=== PATIENT | female | born 1950 | race Caucasian/White ===

== ENCOUNTER 2018-07-03 08:20 | Emergency (ER) | payer OTHER ==
[2018-07-03 09:16] LABS: Protime INR 1.37
[2018-07-03 09:17] LABS: Absolute Lymphocytes (CBC) 1.2 K/uL (0.7-4.9); Absolute Monocytes 0.9 K/uL (0.1-1.3); Absolute Neutrophil 5.1 K/uL (1.8-8.0); Eosinophils % 4.8 % (0-4.4); Hematocrit 35.5 % (36.0-45.0); Lymphocytes % 16.3 % (15.3-44.8); MCH 32.2 pg (27.0-35.0); MCV 93.1 fL (80-100); MPV 9.2 fL (7.6-11.3); Monocytes % 11.9 % (3.3-12.3); RBC Red Blood Cell Count 3.81 M/uL (3.86-4.86)
[2018-07-03 09:32] LABS: Albumin 3.3 g/dL (3.4-5.0); Bilirubin Direct 0.1 mg/dL (0-0.2); Bilirubin Total 0.3 mg/dL (0.2-1.0); Magnesium 2.4 mg/dL (1.8-2.4); Potassium 4.3 mmol/L (3.5-5.1); Protein, Total 7.4 g/dL (6.4-8.2); Troponin (Emerg Dept Use Only) 0.02 ng/mL (0.0-0.045)
[2018-07-03 09:56] LABS: Thyroid Stimulating Hormone 3.99 uIU/mL (0.360-3.740)
[2018-07-03] MEDS ORDERED: NA CHLORIDE 0.9% 500 ML ONE (11:33)
--- NOTE | 2018-07-03 12:20 | EDPHYS ---
Physician Documentation [facility] Name: Nhung Munson Age: 67 yrs Sex: Female : 1950 Arrival Date: 07/03/2018 Time: 08:21 Bed 8 Private MD: Inga Thomas R ED Physician Ney Fernández HPI: 07/03 08:59 This 67 yrs old Female presents to ER via Wheelchair with complaints of Chest jr8 discomfort/cold sensation . 08:59 Patient stated for the past week that she has had intermittent "cold" sensation to her jr8 chest, back, head. Denies any other symptoms . Severity of symptoms: At their worst the symptoms were mild in the emergency department the symptoms have resolved. The patient has not experienced similar symptoms in the past. The patient has not recently seen a physician. Historical: - Allergies: 08:23 Amoxicillin; aa5 08:23 Bactrim DS; aa5 - PMHx: 08:23 Atrial Fib; Diabetes - IDDM; High Cholesterol; Hypertension; aa5 - PSHx: 08:23 Tubal ligation; aa5 - Immunization history:: Pneumococcal vaccine status is unknown, Flu vaccine is up to date. - Social history:: Smoking status: Patient/guardian denies using tobacco. - Ebola Screening: : No symptoms or risks identified at this time. ROS: 08:59 Eyes: Negative for injury, pain, redness, and discharge, ENT: Negative for injury, jr8 pain, and discharge, Neck: Negative for injury, pain, and swelling, Respiratory: Negative for shortness of breath, cough, wheezing, and pleuritic chest pain, Abdomen/GI: Negative for abdominal pain, nausea, vomiting, diarrhea, and constipation, Back: Negative for injury and pain, MS/Extremity: Negative for injury and deformity, Skin: Negative for injury, rash, and discoloration, Neuro: Negative for headache, weakness, numbness, tingling, and seizure. 08:59 Cardiovascular: Positive for chest pain, Negative for edema, orthopnea, palpitations, paroxysmal nocturnal dyspnea. Exam: 08:59 Eyes: Pupils equal round and reactive to light, extra-ocular motions intact. Lids and jr8 lashes normal. Conjunctiva and sclera are non-icteric and not injected. Cornea within normal limits. Periorbital areas with no swelling, redness, or edema. ENT: Nares patent. No nasal discharge, no septal abnormalities noted. Tympanic membranes are normal and external auditory canals are clear. Oropharynx with no redness, swelling, or masses, exudates, or evidence of obstruction, uvula midline. Mucous membranes moist. Neck: Trachea midline, no thyromegaly or masses palpated, and no cervical lymphadenopathy. Supple, full range of motion without nuchal rigidity, or vertebral point tenderness. No Meningismus. Cardiovascular: Regular rate and rhythm with a normal S1 and S2. Grade 2 systolic murmur auscultated. Normal PMI, no JVD. No pulse deficits. 2+ pedal edema present Respiratory: Lungs have equal breath sounds bilaterally, clear to auscultation and percussion. No rales, rhonchi or wheezes noted. No increased work of breathing, no retractions or nasal flaring. Abdomen/GI: Soft, non-tender, with normal bowel sounds. No distension or tympany. No guarding or rebound. No evidence of tenderness throughout. Back: No spinal tenderness. No costovertebral tenderness. Full range of motion. Skin: Warm, dry with normal turgor. Normal color with no rashes, no lesions, and no evidence of cellulitis. MS/ Extremity: Pulses equal, no cyanosis. Neurovascular intact. Full, normal range of motion. Neuro: Awake and alert, GCS 15, oriented to person, place, time, and situation. Cranial nerves II-XII grossly intact. Motor strength 5/5 in all extremities. Sensory grossly intact. Cerebellar exam normal. Normal gait. 09:13 ECG was reviewed by the Attending Physician. jr8 Vital Signs: 08:25 BP 150 / 52; Pulse 79; Resp 16 S; Temp 98.1(O); Pulse Ox 98% on R/A; Weight 131.54 kg aa5 (R); Height 5 ft. 1 in. (154.94 cm) (R); Pain 0/10; 09:00 BP 141 / 60; Pulse 72; Resp 14; Pulse Ox 99% ; sv 09:30 BP 105 / 45; Pulse 66; Resp 13; Pulse Ox 99% ; sv 10:00 BP 106 / 50; Pulse 65; Resp 15; Pulse Ox 99% ; sv 10:30 BP 124 / 63; Pulse 67; Resp 15; Pulse Ox 99% ; sv 08:25 Body Mass Index 54.79 (131.54 kg, 154.94 cm) aa5 MDM: 08:25 Patient medically screened. [facility] 12:16 Data reviewed: vital signs, nurses notes, lab test result(s), EKG, radiologic studies, jr8 plain films. Data interpreted: Pulse oximetry: on room air is 99 %. Interpretation: normal. Counseling: I had a detailed discussion with the patient and/or guardian regarding: the historical points, exam findings, and any diagnostic results supporting the discharge/admit diagnosis, lab results, radiology results, the need for outpatient follow up, a family practitioner, to return to the emergency department if symptoms worsen or persist or if there are any questions or concerns that arise at home. ED course: Patient asymptomatic at this time. To f/u with Dr. Villalba and her PCP for renal insufficiency and thyroid dysfunction. Patient good with plan and will f/u. 07/03 08:48 Order name: Basic Metabolic Panel [facility] 07/03 08:48 Order name: CBC with Diff [facility] 07/03 08:48 Order name: LFT's; Complete Time: 10:45 jr 07/03 08:48 Order name: Magnesium; Complete Time: 10:45 07/03 08:48 Order name: NT PRO-BNP; Complete Time: 10:45 [facility] 07/03 08:48 Order name: PT-INR; Complete Time: 09:27 07/03 08:48 Order name: Troponin (emerg Dept Use Only); Complete Time: 10:45 [facility] 07/03 08:48 Order name: XRAY Chest (1 view); Complete Time: 12:34 jr 07/03 08:48 Order name: TSH; Complete Time: 10:45 8 07/03 08:48 Order name: T4 Free; Complete Time: 10:45 8 07/03 08:49 Order name: Basic Metabolic Panel; Complete Time: 10:45 [facility] 07/03 08:49 Order name: CBC with Automated Diff; Complete Time: 09:27 [facility]NV 07/03 08:54 Order name: Glucose, Ancillary Testing; Complete Time: 08:58 EDMS 07/03 08:48 Order name: EKG; Complete Time: 08:49 8 07/03 08:48 Order name: Cardiac monitoring; Complete Time: 08:49 jr8 07/03 08:48 Order name: EKG - Nurse/Tech; Complete Time: 08:07/03 08:48 Order name: IV Saline Lock; Complete Time: :07/03 08:48 Order name: Labs collected and sent; Complete Time: 08:07/03 08:48 Order name: O2 Per Protocol; Complete Time: :07/03 08:48 Order name: O2 Sat Monitoring; Complete Time: 07/03 12:02 Order name: Diet Ada 1800 Cole; Complete Time: 12:03 sv EC:13 Rate is 79 beats/min. Rhythm is regular, Normal Sinus Rhythm. Left axis deviation jr8 noted. SC interval is normal at 172 msec. QRS interval is normal at 118 msec. QT interval is prolonged at 490 msec. No Q waves. T waves are Normal. No ST changes noted. Clinical impression: LVH and No evidence of ischemia. Interpreted by me. Reviewed by me. Administered Medications: 11:30 Drug: NS 0.9% 500 ml Route: IV; Rate: bolus; Site: right forearm; sv 12:20 Follow up: Response: No adverse reaction; IV Status: Completed infusion; IV Intake: sv 500ml Point of Care Testing: Blood Glucose: 08:42 Blood Glucose: 188 mg/dL; sv Ranges: Critical Glucose Levels:Adult <50 mg/dl or >400 mg/dl <40 mg/dl or >180 mg/dl Disposition: 17:46 Co-signature as Attending Physician, Ney Fernández MD. Disposition: 07/03/18 12:19 Discharged to Home. Impression: Chronic kidney disease (CKD), Hypothyroidism, unspecified. - Condition is Stable. - Discharge Instructions: Hypothyroidism, Chronic Kidney Disease, Adult. - Medication Reconciliation Form, Thank You Letter, Antibiotic Education, Prescription Opioid Use form. - Follow up: Inga Thomas MD; When: 1 - 2 days; Reason: Recheck today's complaints, Continuance of care, Re-evaluation by your physician. Follow up: Arcelia Villalba MD; When: 1 - 2 days; Reason: Recheck today's complaints, Continuance of care, Re-evaluation by your physician. - Problem is new. - Symptoms have improved. Signatures: Dispatcher [employer] EDMS Adrien, Cathie, RN RN Chantal Williamson RN RN aa5 Christopher Moseley PA PA jr8 Shmuel Kim RN RN jl7 Ney Fernández MD MD gs Corrections: (The following items were deleted from the chart) 13:23 12:19 07/03/2018 12:19 Discharged to Home. Impression: Chronic kidney disease (CKD); jl7 Hypothyroidism, unspecified. Condition is Stable. Forms are Medication Reconciliation Form, Thank You Letter, Antibiotic Education, Prescription Opioid Use. Follow up: Inga Thomas; When: 1 - 2 days; Reason: Recheck today's complaints, Continuance of care, Re-evaluation by your physician. Follow up: Arcelia Villalba; When: 1 - 2 days; Reason: Recheck today's complaints, Continuance of care, Re-evaluation by your physician. Problem is new. Symptoms have improved. jr8
--- NOTE | 2018-07-03 12:20 | ER ---
Nurse's Notes [facility] Name: Nhung Munson Age: 67 yrs Sex: Female : 1950 Arrival Date: 07/03/2018 Time: 08:21 Bed 8 Private MD: Inga Thomas R Diagnosis: Chronic kidney disease (CKD);Hypothyroidism, unspecified Presentation: 07/03 08:23 Presenting complaint: Patient states: "I've been having this cold feeling on my chest aa5 and sometimes is on my neck and sometimes on my back for about a week now". Pt denies SOB, denies pain, denies N/V/D, denies cough. 08:23 Transition of care: patient was not received from another setting of care. Onset of aa5 symptoms was June 2018. Risk Assessment: Do you want to hurt yourself or someone else? Patient reports no desire to harm self or others. Initial Sepsis Screen: Does the patient meet any 2 criteria? No. Patient's initial sepsis screen is negative. Does the patient have a suspected source of infection? No. Patient's initial sepsis screen is negative. Care prior to arrival: None. 08:23 Method Of Arrival: Wheelchair aa5 08:23 Acuity: BACILIO 3 aa5 Historical: - Allergies: 08:23 Amoxicillin; aa5 08:23 Bactrim DS; aa5 - PMHx: 08:23 Atrial Fib; Diabetes - IDDM; High Cholesterol; Hypertension; aa5 - PSHx: 08:23 Tubal ligation; aa5 - Immunization history:: Pneumococcal vaccine status is unknown, Flu vaccine is up to date. - Social history:: Smoking status: Patient/guardian denies using tobacco. - Ebola Screening: : No symptoms or risks identified at this time. Screenin:42 Abuse screen: Denies threats or abuse. Denies injuries from another. Nutritional sv screening: No deficits noted. Tuberculosis screening: No symptoms or risk factors identified. Fall Risk None identified. Assessment: 08:40 General: Appears in no apparent distress. comfortable, obese, Behavior is calm, sv cooperative, appropriate for age. Pain: Complains of pain in back and chest. Neuro: Level of Consciousness is awake, alert, obeys commands, Oriented to person, place, time, situation, Moves all extremities. Full function. Cardiovascular: Heart tones S1 S2 present Murmur present Patient's skin is warm and dry. Pulses are 2+ in right radial artery and left radial artery Rhythm is sinus rhythm. Respiratory: Airway is patent Respiratory effort is even, unlabored, Respiratory pattern is regular, symmetrical, Breath sounds are clear bilaterally. Denies shortness of breath labored breathing. Derm: Skin is normal. 08:40 Respiratory: Denies cough. GI: Patient currently denies diarrhea, nausea, vomiting. sv 11:30 Reassessment: Patient appears in no apparent distress at this time. No changes from sv previously documented assessment. Patient and/or family updated on plan of care and expected duration. Pain level reassessed. Patient is alert, oriented x 3, equal unlabored respirations, skin warm/dry/pink. 13:00 Reassessment: Patient appears in no apparent distress at this time. No changes from sv previously documented assessment. Patient and/or family updated on plan of care and expected duration. Pain level reassessed. Patient is alert, oriented x 3, equal unlabored respirations, skin warm/dry/pink. Vital Signs: 08:25 BP 150 / 52; Pulse 79; Resp 16 S; Temp 98.1(O); Pulse Ox 98% on R/A; Weight 131.54 kg aa5 (R); Height 5 ft. 1 in. (154.94 cm) (R); Pain 0/10; 09:00 BP 141 / 60; Pulse 72; Resp 14; Pulse Ox 99% ; sv 09:30 BP 105 / 45; Pulse 66; Resp 13; Pulse Ox 99% ; sv 10:00 BP 106 / 50; Pulse 65; Resp 15; Pulse Ox 99% ; sv 10:30 BP 124 / 63; Pulse 67; Resp 15; Pulse Ox 99% ; sv 08:25 Body Mass Index 54.79 (131.54 kg, 154.94 cm) aa5 ED Course: 08:21 Patient arrived in ED. mr 08:22 Inga Thomas MD is Private Physician. mr 08:23 Arm band placed on Patient placed in an exam room, on a stretcher. aa5 08:25 Christopher Moseley PA is PHCP. jr8 08:25 Ney Fernández MD is Attending Physician. jr8 08:32 Adrien, Cathie, RN is Primary Nurse. sv 08:35 actuarial internship on. Pulse ox on. NIBP on. Door closed. Head of bed elevated. sv 08:35 Initial lab(s) drawn, by me, sent to lab. Inserted saline lock: 22 gauge in right sv forearm, using aseptic technique. ,using aseptic technique. diffusics Blood collected. Flushed right forearm with 5 ml normal saline. 08:36 Triage completed. aa5 08:42 Patient has correct armband on for positive identification. Placed in gown. Bed in low sv position. Side rails up X2. Adult w/ patient. 08:44 Nurse Practitioner and/or Physician Academic Director to see patient. sv 08:57 CBC with Diff Sent. sv 08:57 Basic Metabolic Panel Sent. sv 08:57 X-ray(s) taken. sv 08:57 EKG done, by ED staff, reviewed by Christopher CHOI. jb1 09:03 X-ray completed. Portable x-ray completed in exam room. Patient tolerated procedure ag1 well. 09:04 XRAY Chest (1 view) In Process Unspecified. EDMS 12:18 Inga Thomas MD is Referral Physician. jr8 12:18 Arcelia Villalba MD is Referral Physician. jr8 13:23 No provider procedures requiring assistance completed. IV discontinued, intact, jl7 bleeding controlled, No redness/swelling at site. Pressure dressing applied. Administered Medications: 11:30 Drug: NS 0.9% 500 ml Route: IV; Rate: bolus; Site: right forearm; sv 12:20 Follow up: Response: No adverse reaction; IV Status: Completed infusion; IV Intake: sv 500ml Point of Care Testing: Blood Glucose: 08:42 Blood Glucose: 188 mg/dL; sv Ranges: Intake: 12:20 IV: 500ml; Total: 500ml. sv Outcome: 12:19 Discharge ordered by . jr8 13:23 Discharged to home via wheelchair, with family. jl7 13:23 Condition: stable 13:23 Discharge instructions given to patient, family, Instructed on discharge instructions, follow up and referral plans. Demonstrated understanding of instructions, follow-up care. 13:23 Patient left the ED. jl7 Signatures: Dispatcher [employer] EDVT Emanuel Castellanos jb1 Cathie Jurado, RN RN Elina AzevedoChantal, RN RN aa5 Christopher Moseley PA PA jr8 Josephine Rosa ag1 Shmuel Kim, RN RN jl7 Corrections: (The following items were deleted from the chart) 08:47 08:40 Cardiovascular: Heart tones S1 S2 present Patient's skin is warm and dry. Pulses sv are 2+ in right radial artery and left radial artery Rhythm is sinus rhythm sv
--- NOTE | 2018-07-03 12:26 | RAD REPORT ---
EXAM DESCRIPTION: RAD - Chest Single View - 07/03/2018 9:06 am CLINICAL HISTORY: Dyspnea COMPARISON: April 2016 TECHNIQUE: AP portable chest image was obtained 0850 hours . FINDINGS: No peripheral mass or consolidation. Lung markings similar to comparison. Heart and vascul ature are normal. No measurable pleural effusion and no pneumothorax. There cardio fat pads are prese nt. Overlying soft tissues accentuate lung bases. No acute aortic findings suspected. IMPRESSION: No acute cardiopulmonary process. When adjusting for technique and positioning differences, no substantial change from comparison.
[2018-07-03 14:10] VITALS: TEMP 98.1
[2018-07-03 14:11] VITALS: O2SAT 99
[2018-07-03 14:14] VITALS: BP 124/63
--- NOTE | 2018-07-04 19:17 | EKG ---
Test Date: 2018-07-03 Test Time: 08:34:40 Nurse Wound: CLAIR MEASUREMENT RESULTS: Intervals: Rate: 79 VA: 172 QRSD: 118 QT: 428 QTc: 490 [place]: P: 74 VA: 172 QRS: -49 T: 70 INTERPRETIVE STATEMENTS: Normal sinus rhythm Left anterior fascicular block Left ventricular hypertrophy with QRS widening Prolonged QT Abnormal ECG Compared to ECG 05/16/2016 17:53:51 Left anterior fascicular block now present Left ventricular hypertrophy now present Prolonged QT interval now present Atrial fibrillation no longer present ST (T wave) deviation no longer present Electronically Signed On 07-04-18 19:15:01 CDT by Nehemias Brown
== END 2018-07-03 13:23 | disposition home or self-care (01) ==
LOC: ER 08:20
DX: N18.9 Chronic kidney disease, unspecified (principal); E03.9 Hypothyroidism, unspecified; I10 Essential (primary) hypertension; Z88.1 Allergy status to other antibiotic agents
CPT/HCPCS: 36415; 71045; 80048; 80076; 82962; 83735; 83880; 84439; 84443; 84484; 85025; 85610; 93005; 96360; 99285

== ENCOUNTER 2019-09-06 15:11 | Inpatient (IN) | payer OTHER ==
[2019-09-06 17:18] LABS: Urine Blood NEGATIVE (NEG); Urine Glucose NEGATIVE (NEG); Urine Protein NEGATIVE (NEG); Urine Specific Gravity 1.015 (1.005-1.030); Urine pH 6.5 (5.0-7.0)
[2019-09-06 17:20] LABS: Absolute Lymphocytes (CBC) 0.9 K/uL (0.7-4.9); Basophils % 1.1 % (0-1.3); Lymphocytes % 9.5 % (15.3-44.8); MPV 9.2 fL (7.6-11.3); RBC Red Blood Cell Count 3.46 M/uL (3.86-4.86)
--- NOTE | 2019-09-06 17:22 | RAD REPORT ---
EXAM DESCRIPTION: RAD - Tib Fib Left - 09/06/2019 4:55 pm CLINICAL HISTORY: Cellulitis, leg pain COMPARISON: None. FINDINGS: No fracture is identified. There is no dislocation or periosteal reaction noted. Prominent medial compartment degenerative changes are present at the knee with joint space narrowing and louise nal spurring. Large spurs are seen in the lateral compartment. Patella femoral joint degenerative shailesh nge present. Knee joint is not optimally visualized on this examination. Degenerative change at the a nkle joint is less prominent. Patient has a large plantar spur and small spur at the Achilles attachm ent. Patient has innumerable calcifications scattered throughout the fatty tissues of the left lower extre mity. No air or foreign body seen in the soft tissues. IMPRESSION: No bone destructive process or acute bone finding. Mild ankle joint and very advanced knee joint degenerative change. Neither joint is optimally visuali zed on this examination. Innumerable soft tissue calcifications are present but no air or foreign body in the soft tissues.
[2019-09-06 17:24] LABS: Protime INR 1.37
--- NOTE | 2019-09-06 17:29 | EDPHYS ---
Physician Documentation [facility] Name: Nhung Munson Age: 68 yrs Sex: Female : 1950 Arrival Date: 09/06/2019 Time: 15:13 Bed 19 Private MD: Inga Thomas R ED Physician Herbert Elizabeth HPI: 09/06 16:56 This 68 yrs old Female presents to ER via Wheelchair with complaints of Leg rn Pain, Leg Swelling. 16:56 The patient presents with cellulitis of the left leg. rn 16:56 Description: erythematous, swollen. Onset: The symptoms/episode began/occurred 5 day(s) rn ago. Possible cause(s): unknown. Severity of symptoms: At their worst the symptoms were moderate, in the emergency department the symptoms are unchanged. The patient has experienced similar episodes in the past. Reports has chronic swelling of legs, itching, scratched off scab that now is oozing and redness of same leg. No fever. . Historical: - Allergies: 15:39 Amoxicillin; aj1 15:39 Bactrim DS; aj1 15:39 Demerol; aj1 - PMHx: 15:39 Atrial Fib; Diabetes - IDDM; High Cholesterol; Hypertension; aj1 - Immunization history:: Flu vaccine is up to date. - Social history:: Smoking status: Patient/guardian denies using tobacco. - Ebola Screening: : Patient denies travel to an Ebola-affected area in the 21 days before illness onset. - Family history:: not pertinent. - Hospitalizations: : No recent hospitalization is reported. ROS: 16:56 Constitutional: Negative for fever, chills, and weight loss, Eyes: Negative for injury, rn pain, redness, and discharge, Cardiovascular: Negative for chest pain, palpitations Respiratory: Negative for shortness of breath, cough, wheezing, and pleuritic chest pain, Abdomen/GI: Negative for abdominal pain, nausea, vomiting, diarrhea, and constipation, MS/Extremity: + both legs swelling Skin: + redness and pain to left leg Neuro: Negative for headache, weakness, numbness, tingling, and seizure. Exam: 16:56 Constitutional: This is a well developed, well nourished patient who is awake, alert, rn and in no acute distress. Head/Face: Normocephalic, atraumatic. ENT: dry MM Cardiovascular: Regular rate Respiratory: No increased work of breathing, no retractions or nasal flaring. Abdomen/GI: soft, non-tender MS/ Extremity: Pulses equal, no cyanosis. Neurovascular intact. Full, normal range of motion. 2+ edema bilateral lower ext with chronic edematous skin changes, LLE with erythema and warmth from ankle to mid-tibial region, no fluctuance, + single bullae medial side. 4cm diameter wound with foul smell and clear drainage, no fluctuance. Neuro: Awake and alert Vital Signs: 15:39 BP 127 / 44; Pulse 50; Resp 18; Temp 97.4; Pulse Ox 99% on R/A; Weight 132.45 kg (R); aj1 Height 5 ft. 3 in. (160.02 cm) (R); Pain 0/10; 17:00 BP 138 / 38; Pulse 43; Resp 16; Pulse Ox 99% on R/A; ss 18:30 BP 121 / 40; Pulse 45; Resp 16; Pulse Ox 100% on R/A; Pain 0/10; ss 19:35 BP 127 / 47; Pulse 45; Resp 17; Pulse Ox 99% on R/A; ca1 20:46 BP 110 / 34; Pulse 52; Resp 18 S; Pulse Ox 99% on R/A; ca1 21:36 BP 109 / 82; Pulse 48; Resp 17 S; Pulse Ox 100% on R/A; ca1 15:39 Body Mass Index 51.72 (132.45 kg, 160.02 cm) aj MDM: 15:54 Patient medically screened. rn 17:26 Differential diagnosis: cellulitis. Data reviewed: vital signs, nurses notes, rn radiologic studies, plain films, and as a result, I will admit patient. Counseling: I had a detailed discussion with the patient and/or guardian regarding: the historical points, exam findings, and any diagnostic results supporting the discharge/admit diagnosis, lab results, radiology results, the need for further work-up and treatment in the hospital. Admission orders: after a detailed discussion of the patient's condition and case, the admit orders are written by me. Special discussion:. ED course: Will admit to Dr. Cordero for circumferential cellulitis of left leg involving a third of leg. . 09/06 16:17 Order name: CBC with Diff; Complete Time: 17:53 rn 09/06 16:17 Order name: Basic Metabolic Panel; Complete Time: 17:53 rn 09/06 16:17 Order name: Procalcitonin; Complete Time: 17:53 rn 09/06 16:17 Order name: Blood Culture Adult (2) rn 09/06 16:17 Order name: Protime (+inr); Complete Time: 17:53 rn 09/06 16:17 Order name: Ptt, Activated; Complete Time: 17:53 rn 09/06 16:17 Order name: XRAY Tib Fib LEFT; Complete Time: 17:24 rn 09/06 17:08 Order name: Wound Culture 09/06 17:13 Order name: Urine Dipstick--Ancillary (enter results); Complete Time: 17:20 bd 09/06 19:45 Order name: Basic Metabolic Panel [facility] 09/06 19:45 Order name: Basic Metabolic Panel [facility] 09/06 19:45 Order name: CBC with Automated Diff [facility] 09/06 19:45 Order name: CBC with Automated Diff [facility] 09/06 16:17 Order name: IV Start; Complete Time: 17:21 rn 09/06 18:08 Order name: Diet Ada 1999 Cole; Complete Time: 18:09 09/06 18:09 Order name: Diet Ada 1999 Cole: Spouse tray please; Complete Time: 18:10 09/06 19:45 Order name: CONS Pharmacy Consult [facility] 09/06 19:45 Order name: CONS Physician Consult [facility] 09/06 19:45 Order name: Renal EDMS Administered Medications: 18:18 Drug: vancoMYCIN 1 grams Route: IVPB; Infused Over: 2 hrs; Site: right antecubital; ss 20:52 Follow up: Response: No adverse reaction; IV Status: Completed infusion ca1 Disposition: 09/06/19 17:28 Hospitalization ordered by Juma Cordero for Inpatient Admission. Preliminary diagnosis are Cellulitis of left lower limb, Acute on chronic renal failure. - Bed requested for Intensive Care Unit. - Status is Inpatient Admission. ca1 - Condition is Stable. - Problem is new. - Symptoms are unchanged. UTI on Admission? No Signatures: Dispatcher [employer] EDRI Khadra Rabago RN RN [email or web address] Sonia Fitzgerald RN RN mw Nieto, Roman, MD MD rn [facility], Kristin, RN RN ss AcMargoth coreas RN RN ca1 Corrections: (The following items were deleted from the chart) 17:56 17:28 [facility]. Preliminary rn diagnosis is Cellulitis of left lower limb. Bed requested for Telemetry/MedSurg (Inpatient). Status is Inpatient Admission. Condition is Stable. Problem is new. Symptoms are unchanged. UTI on Admission? No. rn 21:08 17:56 09/06/2019 17:28 Hospitalization Ordered by [facility] for Inpatient mw Admission. Preliminary diagnosis is Cellulitis of left lower limb; Acute on chronic renal failure. Bed requested for Telemetry/MedSurg (Inpatient). Status is Inpatient Admission. Condition is Stable. Problem is new. Symptoms are unchanged. UTI on Admission? No. rn 21:08 21:08 09/06/2019 17:28 Hospitalization Ordered by [facility] for Inpatient mw Admission. Preliminary diagnosis is Cellulitis of left lower limb; Acute on chronic renal failure. Bed requested for Intensive Care Unit. Status is Inpatient Admission. Condition is Stable. Problem is new. Symptoms are unchanged. UTI on Admission? No. mw 22:03 21:08 09/06/2019 17:28 Hospitalization Ordered by [facility] for Inpatient ca1 Admission. Preliminary diagnosis is Cellulitis of left lower limb; Acute on chronic renal failure. Bed requested for Intensive Care Unit. Status is Inpatient Admission. Condition is Stable. Problem is new. Symptoms are unchanged. UTI on Admission? No.
--- NOTE | 2019-09-06 17:29 | ER ---
Nurse's Notes [facility] Name: Nhung Munson Age: 68 yrs Sex: Female : 1950 Arrival Date: 09/06/2019 Time: 15:13 Bed 19 Private MD: Inga Thomas R Diagnosis: Cellulitis of left lower limb;Acute on chronic renal failure Presentation: 09/06 15:37 Presenting complaint: Patient states: "I got an infection on my left leg" Patient aj1 reports that she has noticed redness and purulent drainage since Thursday. Denies fever. Transition of care: patient was not received from another setting of care. Onset of symptoms was 2018. Risk Assessment: Do you want to hurt yourself or someone else? Patient reports no desire to harm self or others. Initial Sepsis Screen: Does the patient meet any 2 criteria? No. Patient's initial sepsis screen is negative. Does the patient have a suspected source of infection? Yes: Skin breakdown/wound. Care prior to arrival: None. 15:37 Method Of Arrival: Wheelchair aj1 15:37 Acuity: BACILIO 3 aj1 Triage Assessment: 15:39 General: Appears in no apparent distress. comfortable, Behavior is calm, cooperative, aj1 appropriate for age. Pain: Denies pain. Neuro: Level of Consciousness is awake, alert, obeys commands. Cardiovascular: Patient's skin is warm and dry. Respiratory: Airway is patent Respiratory effort is even, unlabored, Respiratory pattern is regular, symmetrical. Historical: - Allergies: 15:39 Amoxicillin; aj1 15:39 Bactrim DS; aj1 15:39 Demerol; aj1 - PMHx: 15:39 Atrial Fib; Diabetes - IDDM; High Cholesterol; Hypertension; aj1 - Immunization history:: Flu vaccine is up to date. - Social history:: Smoking status: Patient/guardian denies using tobacco. - Ebola Screening: : Patient denies travel to an Ebola-affected area in the 21 days before illness onset. - Family history:: not pertinent. - Hospitalizations: : No recent hospitalization is reported. Screenin:08 Abuse screen: Denies threats or abuse. Denies injuries from another. Nutritional ss screening: No deficits noted. Tuberculosis screening: Never had TB. Fall Risk None identified. Assessment: 16:00 General: Appears comfortable, obese, Behavior is calm, cooperative. Pain: Denies pain. ss Neuro: Level of Consciousness is awake, alert, obeys commands, Oriented to person, place, time, situation. Cardiovascular: Capillary refill < 3 seconds is brisk in bilateral fingers. Respiratory: Respiratory effort is even, unlabored, Denies cough, shortness of breath. EENT: Oral mucosa is moist. Derm: Skin is thin, with poor turgor Skin is dry, Skin is pink, warm \\T\\ dry. Skin temperature is warm Wound noted LLE. blister noted to L monteiro area as well as silver dollar sized area of scabbing. Pt reports redness to monteiro began yesterday. Itching to area began "a few days ago". Very dry, flaky skin noted to bilateral lower extremities. Musculoskeletal: Range of motion: intact in all extremities. 17:00 Reassessment: Patient appears in no apparent distress at this time. Patient and/or ss family updated on plan of care and expected duration. Pain level reassessed. Patient is alert, oriented x 3, equal unlabored respirations, skin warm/dry/pink. 18:00 Reassessment: Pt and updated on plan of care. Dr. Cordero at bedside assessing ss patient and discussing plan of care. 19:05 Reassessment: Patient appears in no apparent distress at this time. Patient is alert, ca1 oriented x 3, equal unlabored respirations, skin warm/dry/pink. 20:03 Reassessment: Patient appears in no apparent distress at this time. Patient and/or ca1 family updated on plan of care and expected duration. Pain level reassessed. Patient is alert, oriented x 3, equal unlabored respirations, skin warm/dry/pink. Pending room assignment. 21:10 Reassessment: Patient appears in no apparent distress at this time. Patient is alert, ca1 oriented x 3, equal unlabored respirations, skin warm/dry/pink. Vital Signs: 15:39 BP 127 / 44; Pulse 50; Resp 18; Temp 97.4; Pulse Ox 99% on R/A; Weight 132.45 kg (R); aj1 Height 5 ft. 3 in. (160.02 cm) (R); Pain 0/10; 17:00 BP 138 / 38; Pulse 43; Resp 16; Pulse Ox 99% on R/A; ss 18:30 BP 121 / 40; Pulse 45; Resp 16; Pulse Ox 100% on R/A; Pain 0/10; ss 19:35 BP 127 / 47; Pulse 45; Resp 17; Pulse Ox 99% on R/A; ca1 20:46 BP 110 / 34; Pulse 52; Resp 18 S; Pulse Ox 99% on R/A; ca1 21:36 BP 109 / 82; Pulse 48; Resp 17 S; Pulse Ox 100% on R/A; ca1 15:39 Body Mass Index 51.72 (132.45 kg, 160.02 cm) aj1 ED Course: 15:13 Patient arrived in ED. rg4 15:13 Inga Thomas MD is Private Physician. rg4 15:39 Triage completed. aj1 15:39 Arm band placed on Patient placed in an exam room. aj1 15:54 Herbert Elizabeth MD is Attending Physician. rn 16:46 Kristin Guzman RN is Primary Nurse. ss 16:50 XRAY Tib Fib LEFT In Process Unspecified. EDMS 17:00 Inserted saline lock: 22 gauge in right antecubital area, using aseptic technique. ss Blood collected. 17:27 Juma Cordero DO is Hospitalizing Provider. rn 19:08 Patient has correct armband on for positive identification. Bed in low position. Call ss light in reach. 19:08 No provider procedures requiring assistance completed. Patient admitted, IV remains in ss place. 20:45 Primary Nurse role handed off by Kristin Guzman, JAZMYN ar5 Administered Medications: 18:18 Drug: vancoMYCIN 1 grams Route: IVPB; Infused Over: 2 hrs; Site: right antecubital; ss 20:52 Follow up: Response: No adverse reaction; IV Status: Completed infusion ca1 Outcome: 17:28 Decision to Hospitalize by Provider. rn 19:08 Condition: good ss 19:08 Instructed on the need for admit. 21:42 Admitted to ICU accompanied by tech, via wheelchair, room 3 as ICU overflow, with ca1 chart, Report called to JAZMYN Narayanan 21:42 Condition: stable 21:42 Instructed on the need for admit. 22:03 Patient left the ED. ca1 Signatures: Dispatcher [employer] EDTX Khadra Rabago RN RN aj1 ElizabethHerbert alexandra MD MD rn Smirch, Shelby, RN RN ss Garcia, Rubi rg4 Daina Breaux ar5 Margoth Hoffmann RN RN ca1 Corrections: (The following items were deleted from the chart) 20:52 20:03 Reassessment: Patient appears in no apparent distress at this time. Patient ca1 and/or family updated on plan of care and expected duration. Pain level reassessed. Patient is alert, oriented x 3, equal unlabored respirations, skin warm/dry/pink. ca1
[2019-09-06 17:31] LABS: Potassium 4.4 mmol/L (3.5-5.1)
[2019-09-06] MEDS ORDERED: VANCOMYCIN 1 GM/VIAL ONE (17:40)
[2019-09-06] MEDS ORDERED: NA CHLORIDE 0.9% 250 ML ONE (17:43)
[2019-09-06] MEDS ORDERED: ONDANSETRON 4 MG/2 ML VIAL IV PRN (19:41)
[2019-09-06] MEDS ORDERED: MORPHINE 4 MG/ML SYR IV PRN (19:41)
[2019-09-06] MEDS ORDERED: ACETAMINOPHEN 500 MG TAB PO PRN (19:41)
[2019-09-06] MEDS ORDERED: Levofloxacin500mg IV 500 MG/100 ML BAG IV ONE (22:00)
[2019-09-06 22:25] VITALS: O2SAT 100
[2019-09-06] MEDS: NA CHLORIDE 0.9% 1,000 ML IV SCH (22:27)
[2019-09-07 05:41] LABS: Absolute Lymphocytes (CBC) 1.3 K/uL (0.7-4.9); Basophils % 1.2 % (0-1.3); Hematocrit 31.3 % (36.0-45.0); Lymphocytes % 14.6 % (15.3-44.8); MPV 9.9 fL (7.6-11.3); RBC Red Blood Cell Count 3.41 M/uL (3.86-4.86)
[2019-09-07] MEDS ORDERED: HOME MED 1 EA UNK (Liraglutide [Victoza 2-Pak] 1.8 MG) SQ SCH (09:00)
[2019-09-07] MEDS ORDERED: cloNIDine HCL 0.1 MG TAB PO SCH (09:00)
[2019-09-07] MEDS ORDERED: carvediloL 25 MG TAB PO SCH (09:00)
[2019-09-07] MEDS: FERROUS GLUCONATE 236 MG PO SCH ×3 (09:00→20:40)
[2019-09-07] MEDS ORDERED: SPIRONOLACTONE 25 MG TABLET PO SCH (09:00)
[2019-09-07] MEDS: NA CHLORIDE 0.9% 1,000 ML IV SCH ×2 (09:20→22:40)
[2019-09-07] MEDS: allopurinoL 100 MG TAB PO SCH (10:03)
[2019-09-07] MEDS: VITAMIN D 1000 UNIT TAB PO SCH (10:04)
[2019-09-07] MEDS: AMIODARONE HCL 200 MG TAB PO SCH (10:04)
[2019-09-07] MEDS: APIXABAN 2.5 MG TABLET PO SCH ×2 (10:05→20:39)
[2019-09-07] MEDS: NPH (HUMAN) 100 UNITS/ML INSULIN SQ SCH (11:42)
[2019-09-07] MEDS ORDERED: NPH (HUMAN) 100 UNITS/ML INSULIN SQ SCH (17:00)
[2019-09-07] MEDS: cloNIDine HCL 0.1 MG TAB PO SCH (20:40)
[2019-09-07] MEDS ORDERED: carvediloL 6.25 MG TAB PO SCH ×2 (21:00)
[2019-09-07] MEDS ORDERED: ATORVASTATIN 20 MG TAB PO SCH (21:00)
[2019-09-07] MEDS ORDERED: LORATADINE 10 MG TAB PO SCH (21:00)
[2019-09-07] MEDS ORDERED: DIPHENHYDRAMINE 25 MG TAB/CAP PO ONE (22:27)
[2019-09-07] MEDS ORDERED: TEMAZEPAM 15 MG CAP PO PRN (22:28)
[2019-09-08] MEDS: NA CHLORIDE 0.9% 1,000 ML IV SCH (00:54)
[2019-09-08] MEDS ORDERED: CLINDAMYCIN 600MG/D5W 600 MG/50 ML BAG IV ONE (00:56)
[2019-09-08] MEDS: CLINDAMYCIN INJ 600 MG in NA CHLORIDE 0.9% 50 ML IV SCH ×2 (00:57→09:40)
[2019-09-08 04:37] VITALS: BMI 52.4
--- NOTE | 2019-09-08 05:54 | P.HP ---
Certification for Inpatient Patient admitted to: Inpatient With expected LOS: >2 Midnights Patient will require the following post-hospital care: None Practitioner: I am a practitioner with admitting privileges, knowledge of patient current condition, hospital course, and medical plan of care. Services: Services provided to patient in accordance with Admission requirements found in Title 42 Section 412.3 of the Code of Federal Regulations Patient History Date of Service: 09/06/19 Reason for admission: Cellulitis of the left lower extremity History of Present Illness: Patient is a 68-year-old female who came to the hospital with cellulitis of the left lower extremity. Patient's left leg has been red for the last few days. This has progressively worsened. Patient is on diuretics as she has lower extremity edema. This has been worked up extensively, and she was informed that her heart studies were normal. Her renal function has worsened over the last year significantly. She had a creatinine at 1.68 in September,. However, her creatinine on this admission was 3.7. She appears to be overly diuresed, and we will admit her to the hospital for hydration and IV antibiotics. Allergies amoxicillin [Amoxicillin] Allergy (Intermediate, Verified 12/27/11 05:36) Hives/Rash sulfamethoxazole [From Bactrim] Allergy (Intermediate, Verified 12/27/11 05:36) Hives/Rash trimethoprim [From Bactrim] Allergy (Intermediate, Verified 12/27/11 05:36) Hives/Rash Home Medications: Allopurinol 100 mg PO DAILY 09/06/19 Amiodarone HCl [Pacerone] 200 mg PO DAILY 09/06/19 Apixaban [Eliquis] 2.5 mg PO BID 09/06/19 Atorvastatin Calcium [Lipitor] 20 mg PO BEDTIME 09/06/19 Carvedilol [Coreg] 25 mg PO BID 09/06/19 Cholecalciferol (Vitamin D3) [Vitamin D 1000 Iu Tab] 3,000 unit PO DAILY Clonidine HCl [Catapres*] 0.2 mg PO BID 09/06/19 Ferrous Gluconate [Iron] 236 mg PO TID 09/06/19 Fluticasone [Flonase 50mcg Nasal [place]] 2 sprays NS DAILY 09/06/19 Furosemide [Lasix] 1 tab PO DAILY 6PM 09/06/19 Furosemide [Lasix] 2 tab PO DAILY 09/06/19 Insulin NPH Human Isophane [Novolin N] 43 unit SQ DAILY AT SUPPER 09/06/19 Insulin NPH Human Isophane [Novolin N] 45 unit SQ DAILY 09/06/19 Liraglutide [Victoza 2-Meir] 1.8 mg SQ DAILY 09/06/19 Loratadine [Claritin] 10 mg PO BEDTIME 09/06/19 Spironolactone [Aldactone] 25 mg PO M,W,F 09/06/19 - Past Medical/Surgical History Has patient received pneumonia vaccine in the past: Yes Diabetic: Yes -: IDDM -: Hypertension -: Atrial fibrillation, seen by Cardiology on anti coagulation -: Obesity -: Hyperlipidemia -: Chronic renal disease, seen by a nephrology -: Hemorrhoids -: Degenerative joint disease of the hip -: Tubal ligation Psychosocial/ Personal History: She is of 49 years, has 4 children, she does not work. - Social History Smoking Status: Never smoker Alcohol use: No CD- Drugs: No Caffeine use: Yes Place of Residence: Home Review of Systems 10-point ROS is otherwise unremarkable Physical Examination - Vital Signs Temperature: 97.6 F Blood Pressure: 140/63 Pulse: 67 Respirations: 17 Pulse Ox (%): 99 - Physical Exam General: Alert, In no apparent distress, Oriented x3 HEENT: Atraumatic, PERRLA, Mucous membr. moist/pink, EOMI, Sclerae nonicteric Neck: Supple, 2+ carotid pulse no bruit, No LAD, Without JVD or thyroid abnormality Respiratory: Clear to auscultation bilaterally, Normal air movement Cardiovascular: Regular rate/rhythm, Normal S1 S2, No murmurs Gastrointestinal: Normal bowel sounds, Soft and benign, Non-distended, No tenderness Musculoskeletal: No clubbing, Swelling, Erythema, Tenderness, Warmth Integumentary: Tenderness/swelling, Erythema, Warmth Neurological: Normal gait, Normal speech, Normal tone, Sensation intact, Cranial nerves 3-12 intact, Normal affect, Abnormal strength (4-/5) Lymphatics: No axilla or inguinal lymphadenopathy - Studies Microbiology Data (last 24 hrs): 09/06/19 17:12 Wound - L Leg (Lower) Gram Stain - Final Assessment & Plan - Problems (Diagnosis) (1) Cellulitis of left lower extremity Current Visit: Yes Status: Acute (2) Atrial fibrillation Onset Date: 05/02/16 Current Visit: No Status: Chronic Qualifiers: (3) Degenerative joint disease (DJD) of hip Onset Date: 05/02/16 Current Visit: No Status: Chronic (4) Diabetes mellitus Onset Date: 05/02/16 Current Visit: No Status: Chronic Qualifiers: (5) Hyperlipidemia Current Visit: No Status: Chronic Qualifiers: (6) Hypertension Onset Date: 05/02/16 Current Visit: No Status: Chronic Qualifiers: - Plan 1. Continue with IV antibiotic 2. Continue with local wound care 3. Wound care consultation 4. Gentle IV hydration; monitor renal function closely. Hopefully this continues to improve 5. Monitor CBC 6. Strict blood sugar monitoring 7. Pain control 8. GI and DVT prophylaxis Discharge Plan: Home Plan to discharge in: Greater than 2 days - Advance Directives Does patient have a Living Will: No Does patient have a Durable POA for Healthcare: No - Code Status/Comfort Care Code Status Assessed: Yes Code Status: Full Code Critical Care: No Time Spent Managing PTS Care (In Minutes): 45
--- NOTE | 2019-09-08 05:58 | P.PN ---
Date of Service: 09/07/19 Subjective Patient is doing better with no new complaints. Renal function continues to improve. Cellulitis has also improved. Continue with clindamycin and pending vancomycin levels. Physical Examination - Vital Signs Reviewed - Physical Exam General: Alert, In no apparent distress, Oriented x3 Respiratory: Clear to auscultation bilaterally, Normal air movement Cardiovascular: Regular rate/rhythm, Normal S1 S2, No murmurs Gastrointestinal: Normal bowel sounds, Soft and benign, Non-distended, No tenderness Musculoskeletal: No clubbing, Swelling, Erythema, Tenderness, Warmth Integumentary: Tenderness/swelling, Erythema, Warmth Assessment & Plan - Problems (Diagnosis) (1) Cellulitis of left lower extremity Current Visit: Yes Status: Acute (2) Atrial fibrillation Onset Date: 05/02/16 Current Visit: No Status: Chronic Qualifiers: (3) Degenerative joint disease (DJD) of hip Onset Date: 05/02/16 Current Visit: No Status: Chronic (4) Diabetes mellitus Onset Date: 05/02/16 Current Visit: No Status: Chronic Qualifiers: (5) Hyperlipidemia Current Visit: No Status: Chronic Qualifiers: (6) Hypertension Onset Date: 05/02/16 Current Visit: No Status: Chronic Qualifiers: - Plan Continue with current plan of care as mentioned below: 1. Continue with IV antibiotic 2. Continue w/ gentle IV hydration; monitor renal function closely. Hopefully this continues to improve 3. Monitor CBC; check vanc level 4. Strict blood sugar monitoring 5. Pain control 6. GI and DVT prophylaxis Discharge Plan: Home Plan to discharge in: Greater than 2 days
[2019-09-08] MEDS ORDERED: D5W 1,000 ML IV SCH (06:00)
[2019-09-08] MEDS: FERROUS GLUCONATE 236 MG PO SCH (09:00)
[2019-09-08] MEDS: MUPIROCIN 2% OINT 22GM TUBE TOP SCH ×2 (09:00→09:36)
[2019-09-08] MEDS ORDERED: FUROSEMIDE 40 MG TABLET PO SCH ×2 (09:00→18:00)
[2019-09-08] MEDS ORDERED: VANCOMYCIN 1 GM in NA CHLORIDE 0.9% 250 ML IVPB SCH (09:00)
[2019-09-08] MEDS: allopurinoL 100 MG TAB PO SCH (09:37)
[2019-09-08] MEDS: VITAMIN D 1000 UNIT TAB PO SCH (09:37)
[2019-09-08] MEDS: NPH (HUMAN) 100 UNITS/ML INSULIN SQ SCH (09:37)
[2019-09-08] MEDS: APIXABAN 2.5 MG TABLET PO SCH (09:37)
[2019-09-08] MEDS: cloNIDine HCL 0.1 MG TAB PO SCH (09:38)
[2019-09-08] MEDS: AMIODARONE HCL 200 MG TAB PO SCH (09:38)
[2019-09-08 12:31] VITALS: TEMP 97.9
[2019-09-08 14:29] VITALS: BP 135/53
--- NOTE | 2019-09-08 14:49 | CON ---
Date of Consultation: 09/07/2019 Chief Complaint: Acute kidney injury on advanced chronic kidney disease. History Of Present Illness: Patient has history of chronic kidney disease stage 4. She presented to the hospital because of generalized weakness, is admitted to ICU with cellulitis of the legs. She was found to have severe acute on chronic kidney injury. Patient was found to have hypotension. She was admitted to ICU and medication for blood pressure were reduced. Patient has history of morbid obesity, chronic kidney disease stage 4. Previously, she was scheduled to have AV fistula created for dialysis access. Patient is a 68-year-old female. She came to the hospital because of left lower extremity swelling, redness and pain. Leg pain has progressed over 2 to 3 days prior to admission. Patient was taking diuretics to help extremity edema, although she developed hypotension and is admitted to ICU. At this point she does not require pressors, although she is off blood pressure medication. She was taking multiple blood pressure medication including carvedilol, clonidine as well as diuretics. Patient was admitted to the hospital for IV antibiotics and to control kidney function and treat for hypotension and check for any evidence of septic shock. Patient is undergoing workup for acute coronary syndrome. Patient has history of gout and history of atrial fibrillation. She has been on amiodarone and anticoagulation, followed by drapery sewer hand. Review of Systems: Constitutional: Patient denies fever, chills. Denies syncope. Eyes: Denies vision changes. Ears, Nose, Mouth and Throat: Denies sore throat or earache. Respiratory: Has dyspnea on exertion. Denies PND, orthopnea. Cardiovascular: Denies chest pain, syncope. Denies palpitation. GI: Denies nausea, vomiting. : Denies dysuria, hematuria. Musculoskeletal: Complaining of extremity pain, swelling. Denies recent gout flare. All other systems reviewed and all are negative. Past Medical History: Diabetes mellitus, diabetic kidney disease, hypertension , hypertensive kidney disease and heart disease, atrial fibrillation on anticoagulation and amiodarone. Morbid obesity, hyperlipidemia, hemorrhoids, degenerative joint disease and tubal ligation. Social History: Denies tobacco, alcohol, or illicit drugs. Family History: No kidney disease in the family. Physical Examination: General: The patient is awake, alert, follows commands. Vital Signs: Systolic blood pressure was in the lower 100s. Temperature 97.6, heart rate 68, respiratory rate 17. HEENT: Eyes anicteric. Sclerae EOMI. Ears, Nose, Mouth, and Throat: Oral mucosa moist. No pallor. Neck: Supple. No bruits. Lungs: Clear to auscultation bilaterally. No wheezing. No rhonchi. Heart: S1, S2. No pericardial friction rub. Abdomen: Obese soft, nontender. No rebound. No guarding. Extremities: Cellulitis of the left lower extremity. No clubbing, no cyanosis. Neurological: Moving extremities. Cranial nerves intact. Psychiatric: Alert, oriented x3. Normal affect. Skin: warm and dry , no oozing Neurologic; Alert , oriented , no tremor Impression And Plan: Acute kidney injury, severe, nonoliguric, associated with severe renal hypoperfusion and diuretic effect. Plan is to check CK level to rule out rhabdomyolysis. Patient has severe cellulitis and will require antibiotic and may require IV fluids for sepsis and septic shock. Plan is to start midodrine. Patient will be treated with IV pressors and blood pressure medication were reduced and clonidine currently is on hold. Patient will resume clonidine only if systolic blood pressure is over 140. Due to diuretic effect, patient may require IV fluids. At this point, plan is to monitor blood pressure and adjust medication as needed. Acute on chronic kidney injury due to diabetes. Monitor proteinuria panel and plan is to check urinalysis to screen for abnormal urinary sediment suggestive of nephritis. Cellulitis. Continue antibiotics. Pending blood cultures. Plan is to adjust antibiotics accordingly. Wound culture is growing Staph aureus. Patient may require vancomycin and close monitoring of vancomycin trough level in view of acute on chronic kidney injury. Acute kidney injury on advanced chronic kidney disease. Patient may require dialysis in near future. Plan is to advance management for acute kidney injury with stabilization of blood pressure, adjustment of blood pressure medication, and possible IV fluids as needed. Patient will be evaluated daily with Renal to check renal function. Plan is to monitor renal function and fluid balance daily, avoid nephrotoxic medication. Patient is not a candidate for nonsteroidal anti-inflammatory medication due to advanced chronic kidney disease and risk of kidney failure and hyperkalemia. JAZLYN/MODL Voice ID: [id number] Report ID: [id number] ASA
--- NOTE | 2019-09-08 14:52 | P.CNS ---
Date of Consult: 09/08/19 Reason for Consult: BETTY Chief Complaint: Cellulitis of the left lower extremity History of Present Illness: a 68 Y/o woman with PMhx of DM, HTn, Morbid obesity, CKD IV/V pt presented for lt foot ulcer pt have Hx of rt foot infection presented with worsening Lt leg ulcer, no fever, chills ,nausea, vomiting or diarrhea Cr on admission 4.0 and improved to 2.7 on IVF denied NSAID or contrast exposure Allergies amoxicillin [Amoxicillin] Allergy (Intermediate, Verified 12/27/11 05:36) Hives/Rash sulfamethoxazole [From Bactrim] Allergy (Intermediate, Verified 12/27/11 05:36) Hives/Rash trimethoprim [From Bactrim] Allergy (Intermediate, Verified 12/27/11 05:36) Hives/Rash Home Medications: Allopurinol 100 mg PO DAILY 09/06/19 Amiodarone HCl [Pacerone] 200 mg PO DAILY 09/06/19 Apixaban [Eliquis *] 2.5 mg PO BID 09/06/19 Atorvastatin Calcium [Lipitor*] 20 mg PO BEDTIME 09/06/19 Cholecalciferol (Vitamin D3) [Vitamin D 1000 Iu Tab*] 3,000 unit PO DAILY Clonidine HCl [Catapres*] 0.2 mg PO BID 09/06/19 Ferrous Gluconate [Iron] 236 mg PO TID 09/06/19 Fluticasone [Flonase 50MCG Nasal [place]*] 2 sprays NS DAILY 09/06/19 Furosemide [Lasix*] 1 tab PO DAILY 6PM 09/06/19 Furosemide [Lasix*] 2 tab PO DAILY 09/06/19 Insulin NPH Human Isophane [Novolin N] 43 unit SQ DAILY AT SUPPER 09/06/19 Insulin NPH Human Isophane [Novolin N] 45 unit SQ DAILY 09/06/19 Liraglutide [Victoza 2-Meir] 1.8 mg SQ DAILY 09/06/19 Loratadine [Claritin*] 10 mg PO BEDTIME 09/06/19 Spironolactone [Aldactone*] 25 mg PO M,W,F 09/06/19 Clindamycin HCl [Cleocin HCl *] 150 mg PO Q8H #21 cap 09/08/19 Minocycline HCl 100 mg PO BID #14 capsule 09/08/19 Mupirocin Oint [Bactroban 2% Ointment] 22 appl TOP BID #1 tube 09/08/19 - Past Medical/Surgical History Diabetic: Yes -: IDDM -: Hypertension -: Atrial fibrillation, seen by Cardiology on anti coagulation -: Obesity -: Hyperlipidemia -: Chronic renal disease, seen by a nephrology -: Hemorrhoids -: Degenerative joint disease of the hip -: Tubal ligation Psychosocial/ Personal History: She is of 49 years, has 4 children, she does not work. - Social History Smoking Status: Never smoker Alcohol use: No CD- Drugs: No Caffeine use: Yes Place of Residence: Home Physical Examination Temp Pulse Resp BP Pulse Ox 97.9 F 48 L 23 H 135/53 L 98 09/08/19 12:00 09/08/19 14:00 09/08/19 14:00 09/08/19 14:00 09/08/19 14:00 General: In no apparent distress, Oriented x3, Obese HEENT: Atraumatic, EOMI Neck: Supple, Without JVD or thyroid abnormality Respiratory: Clear to auscultation bilaterally, Normal air movement Cardiovascular: No edema, Normal pulses, Regular rate/rhythm, Normal S1 S2, No gallops, No rubs, No murmurs Gastrointestinal: Normal bowel sounds Musculoskeletal: No clubbing, No swelling, Other (Lt leg ulcer ) Integumentary: Other (Lt leg ulcer ) Conclusions/Impression: BETTY on CKD IV Cr improving Avoid NSAID and contrast monitor vanco level DM as per primary team HTN controlled Lt leg ulcer stable Cont Abx cleared for discharge from nephrology point of view , to follow with nephrology clinic in 2-3 wks
[2019-09-08] MEDS ORDERED: Levofloxacin 250mg IV 250 MG/50 ML BAG IV SCH (22:00)
== END 2019-09-08 15:00 | disposition home health service (06) | DRG 603 ==
LOC: ER 15:11 → ERHOLD 19:42 → 3RD-ICU 21:44
PROVIDERS: ADMIT Hospitalist; ATTEND Hospitalist
DX: L03.116 Cellulitis of left lower limb (principal); I48.20 Chronic atrial fibrillation, unspecified; Z68.43 Body mass index [BMI] 50.0-59.9, adult; N18.4 Chronic kidney disease, stage 4 (severe); N17.9 Acute kidney failure, unspecified; M16.10 Unilateral primary osteoarthritis, unspecified hip; E78.5 Hyperlipidemia, unspecified; E66.01 Morbid (severe) obesity due to excess calories; I12.9 Hypertensive chronic kidney disease with stage 1 through stage 4 chronic kidney disease, or unspecified chronic kidney disease; E11.22 Type 2 diabetes mellitus with diabetic chronic kidney disease; I95.9 Hypotension, unspecified; Z88.0 Allergy status to penicillin; Z88.2 Allergy status to sulfonamides; Z79.01 Long term (current) use of anticoagulants
CPT/HCPCS: 36415; 80048; 80202; 81003; 82947; 84145; 85025; 85610; 85730; 87040; 87070; 87077; 87186; 87205; 96365; 96366; 99285; J1815; J7030

== ENCOUNTER 2020-06-22 16:47 | Observation (INO) | payer OTHER ==
--- OUTSIDE RECORDS SUMMARY | 2020-06-22 16:51 | XMS REPORT | Continuity of Care Document ---
:1950 Author Organization [facility] Care Team Providers Name Role Phone [facility] Unavailable Un available Problems Problem Status Onset Classification Date Comments Sourc e Date Reported [employer] WORKER Active 01/26/20 [facility] [place] ATRIAL Active 01/26/20 MH FIBRILLATION [address] WITH RVR, HEART PALP UNK Active 01/02/20 MH 20 [place] AVF CREATION, Active 08/15/20 MH LEFT UPPER 19 [place] EXTREMITY Arthritis Active Problem 01/29/2020 both knees MH (disorder) [place] Cellulitis Resolved Problem 01/29/2020 left lower MH (disorder) leg--treated [place] with antibiotics Diabetes Active Problem 01/29/2020 MH mellitus [place] (disorder) Dyspnea on Active Problem 01/29/2020 MH exertion [place] (finding) End stage renal Active Problem 01/29/2020 MH disease [place] (disorder) Gout (disorder) Active Problem 01/29/2020 MH [place] Hypertensive Active Problem 01/29/2020 MH disorder, [place] systemic arterial (disorder) Malignant 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 Active 2019 (Same As: Coreg) carvedilol Notes: Give No Longer with food. Active 2019 (Same As: Coreg) Allopurinol Notes: (Same Inactive as: Zyloprim) 2019 Amiodarone Notes: (Same Inactive as: Cordarone) 2019 insulin, isophane Notes: (Same No Longer as: Humulin N) Active 2019 Roll in palms of hands gently; Do not shake vigorously. WASTE: F/P - Black; E - Municipal Trash Bin Stable for 31 days at room temperature Expires in days from D ate metoprolol Notes: (Same No Longer tartrate as: Lopressor) 2019 [facility] Eliquis Notes: Same as: No Longer Eliquis 2019 [facility] atorvastatin Notes: (Same No Longer As: Lipitor) 2019 [facility] Docusate Notes: (Same No Longer as: Colace) (Do 2019 [facility] Not Crush) carvedilol 12.5 mg, Route: Inactive PO, Drug form: 2019 [facility] TAB, BID, Dosing Weight 131.818, kg, Start date: 01/26/20 17:00:00 CDT, Duration: 30 day, Stop date: 02/25/20 9:00:00 CDT Dextrose 50% 12.5 gm, 25 mL, No Longer H Syringe (D50W) Route: IVP, 2019 [facility] Drug Form: INJ, Dosing Weight 131.818, kg, PRN, PRN Blood Glucose Results, Start date: 01/26/20 13:25:00 CDT, Duration: 30 day, Stop date: 02/25/20 13:24:00 CDT, 0 Glucagon 1 mg, Route: No Longer IM, Drug form: 2019 [facility] PDR/INJ, PRN, Dosing Weight 131.818, kg, PRN Blood Glucose Results, Start date: 01/26/20 13:25:00 CDT, Duration: 30 day, Stop date: 02/25/20 13:24:00 CDT, 0 Insulin Lispro Notes: (Same No Longer as: Humalog) 2019 [facility] Roll in palms of hands gently; Do not shake vigorously. WASTE: F/P - Black; E - Municipal Trash Bin Stable for 28 days at room temperature. Expires in days from D ate Metoprolol Notes: (Same No Longer as: Lopressor) 2019 [facility] Push over 2 minutes Dextrose 50% 25 mL, Route: Inactive Syringe (D50W) IVP, Dosing 2019 [facility] Weight 131.818, kg, PRN, PRN Blood Glucose Results, Start date: 01/26/20 13:06:00 CDT, Duration: 30 day, Stop date: 02/25/20 13:05:00 CDT Glucagon 1 mg, Route: Inactive IM, PRN, Dosing 2019 [facility] Weight 131.818, kg, PRN Blood Glucose Results, Start date: 01/26/20 13:06:00 CDT, Duration: 30 day, Stop date: 02/25/20 13:05:00 CDT Ondansetron Notes: (Same No Longer as: Zofran) Active 2019 [facility] MEDICATION WASTE Product Size: 4 mg Product Wasted: ___ mg Acetaminophen Notes: Do not No Longer exceed [address] [place] [address] gm/day. (Same as: Tylenol) metoprolol Notes: (Same Inactive tartrate as: Lopressor) 2019 [facility] Metoprolol Notes: (Same Inactive as: Lopressor) 2019 [facility] Push over 2 minutes Metoprolol Notes: (Same Inactive as: Lopressor) 2019 [facility] Push over 2 minutes Calcium Chloride 1,000 mL, Rate: Inactive 0.0014 MEQ/ML / 125 ml/hr, 2019 [facility] Potassium Infuse over: 8 Chloride 0.004 hr, Route: IV, MEQ/ML / Sodium Dosing Weight Chloride 0.103 132.545 kg, MEQ/ML / Sodium Total Volume: Lactate 0.028 1,000, Start MEQ/ML Injectable date: 10/20/19 Solution 11:45:00 GEOLOGICAL SAMPLE TESTER, Duration: 30 day, Stop date: 11/19/19 11:44:00 CDT, 2.45, m2 Acetaminophen 1,000 mg, Inactive Route: IVPB, 2019 [facility] Drug form: INJ, ONCE, Dosing Weight 132.545, kg, PRN Pain Score 1-3, Start date: 10/20/19 11:45:00 GEOLOGICAL SAMPLE TESTER Oxycodone 5 mg, Route: Inactive Hydrochloride 5 PO, Drug form: 2019 [facility] Oral Tablet TAB, Q4H, Dosing Weight 132.545, kg, PRN Pain Score 4-6, Start date: 10/20/19 11:45:00 GEOLOGICAL SAMPLE TESTER, Duration: 30 day, Stop date: 11/19/19 11:44:00 CDT Morphine 2 mg, Route: Inactive IVP, Q5Min, 2019 [facility] Dosing Weight 132.545, kg, PRN Pain Score 4-6, Start date: 10/20/19 11:45:00 GEOLOGICAL SAMPLE TESTER, Duration: 5 doses or times, Stop date: Limited # of times Fentanyl 25 microgram, Inactive Route: IVP, 2019 [facility] Q5Min, Dosing Weight 132.545, kg, PRN Pain Score 4-6, Priority: Routine, Start date: 10/20/19 11:45:00 GEOLOGICAL SAMPLE TESTER, Duration: 4 doses or times, Stop date: Limited # of times Hydromorphone 0.5 mg, Route: Inactive IVP, Q5Min, 2019 [facility] Dosing Weight 132.545, kg, PRN Pain Score 7-10, Start date: 10/20/19 11:45:00 GEOLOGICAL SAMPLE TESTER, Duration: 4 doses or times, Stop date: Limited # of times Flumazenil 0.2 mg, Route: Inactive IVP, PRN, 2019 [facility] Dosing Weight 132.545, kg, PRN Benzodiazepine Reversal, Initial dose, Start date: 10/20/19 11:45:00 GEOLOGICAL SAMPLE TESTER, Duration: 30 day, Stop date: 11/19/19 12:44:00 CDT Naloxone 0.4 mg, Route: Inactive IVP, Q2MIN, 2019 [facility] Dosing Weight 132.545, kg, PRN Narcotic Reversal, Start date: 10/20/19 11:45:00 GEOLOGICAL SAMPLE TESTER, Duration: 8 doses or times, Stop date: Limited # of times Diphenhydramine 12.5 mg, Route: Inactive IVP, Drug form: 2019 [place] INJ, Q6H, Dosing Weight 132.545, kg, PRN Itching, Start date: 10/20/19 11:45:00 GEOLOGICAL SAMPLE TESTER, Duration: 30 day, Stop date: 11/19/19 11:44:00 CDT Meperidine 12.5 mg, Route: Inactive IVP, Q30Min, 2019 Dosing Weight 132.545, kg, PRN Other -See Comment, For shivering, Start date: 10/20/19 11:45:00 GEOLOGICAL SAMPLE TESTER, Duration: 2 doses or times, Stop date: Limited # of times Ondansetron 4 mg, Route: Inactive IVP, ONCE, 2019 Dosing Weight 132.545, kg, PRN Nausea & Vomiting, Start date: 10/20/19 11:45:00 GEOLOGICAL SAMPLE TESTER Promethazine 6.25 mg, Route: Inactive IVPB, ONCE, 2019 Dosing Weight 132.545, kg, PRN Nausea & Vomiting, Start date: 10/20/19 11:45:00 GEOLOGICAL SAMPLE TESTER 72 HR Scopolamine 1 patch, Route: Inactive 10/20 0.0139 MG/HR TOP, Drug Form: 2019 [facility] Transdermal Patch ERFILM, Dosing Weight 132.545, kg, ONCE, Apply behind ear. Avoid use in elderly., Start date: 10/20/19 11:45:00 GEOLOGICAL SAMPLE TESTER, Stop date: 10/20/19 11:45:00 GEOLOGICAL SAMPLE TESTER glycopyrrolate Route: IV, Drug Inactive (ANES) form: [id number], Stop date: 10/20/19 11:12:00 GEOLOGICAL SAMPLE TESTER neostigmine Route: IV, Drug Inactive (ANES) form: [id number], Stop date: 10/20/19 11:12:00 GEOLOGICAL SAMPLE TESTER dexamethasone Route: IV, Drug Inactive M H (ANES) form: [id number] ONCE, Stop date: 10/20/19 10:48:00 GEOLOGICAL SAMPLE TESTER famotidine (ANES) Route: IV, Drug Inactive 10/20 form: INJ2019, Stop date: 10/20/19 10:43:00 GEOLOGICAL SAMPLE TESTER albuterol (ANES) Route: IV, Drug Inactive form: AERO/A, 2019, Stop date: 10/20/19 10:38:00 GEOLOGICAL SAMPLE TESTER norepinephrine Route: IV, Drug Inactive (ANES) form: [id number], Stop date: 10/20/19 10:38:00 GEOLOGICAL SAMPLE TESTER lidocaine (ANES) Route: IV, Drug Inactive MH form: INJ, 2019 ONCE, Stop date: 10/20/19 10:28:00 GEOLOGICAL SAMPLE TESTER fentaNYL (ANES) Route: IV, Drug Inactive MH form: INJ, 2019 ONCE, Stop date: 10/20/19 10:28:00 GEOLOGICAL SAMPLE TESTER propofol (ANES) Route: IV, Drug Inactive form: INJ, 2019 ONCE, Stop date: 10/20/19 10:28:00 GEOLOGICAL SAMPLE TESTER rocuronium (ANES) Route: IV, Drug Inactive 10/20 form: INJ, 2019 ONCE, Stop date: 10/20/19 10:28:00 GEOLOGICAL SAMPLE TESTER Sodium Chloride Route: IV, Drug Inactive 0.9% IV (ANES) form: INJ, 2019 [place] mL + Cleocin Start date: Phosphate (ANES) 10/20/19 900 mg 9:36:00 GEOLOGICAL SAMPLE TESTER, Stop date: 10/20/19 10:36:00 GEOLOGICAL SAMPLE TESTER Sodium Chloride Route: IV, Inactive 0.9% IV (ANES) Total Volume: 2019 [facility] 500 mL 500, Start date: 10/20/19 9:36:00 GEOLOGICAL SAMPLE TESTER, Stop date: 10/20/19 10:36:00 GEOLOGICAL SAMPLE TESTER Calcium Chloride 1,000 mL, Rate: Inactive 0.0014 MEQ/ML / 75 ml/hr, 2020 [place] Potassium Infuse over: Chloride 0.004 13.3 hr, Route: MEQ/ML / Sodium IV, Dosing Chloride 0.103 Weight 132.545 MEQ/ML / Sodium kg, Total Lactate 0.028 Volume: 1,000, MEQ/ML Injectable Start date: Solution 10/20/19 7:57:00 GEOLOGICAL SAMPLE TESTER, Duration: 1 day, Stop date: 10/21/19 7:56:00 GEOLOGICAL SAMPLE TESTER, 2.45, m2, 0 spironolactone 25 25 mg = 1 tab, Active MH mg oral tablet PO, 0 Refill(s) 2020 [facility] allopurinol 100 100 mg = 1 tab, Active 10/17/ MH mg oral tablet PO, Daily, # 90 [facility] [place] tab, 1 Refill(s) Lasix BID, 0 Active Refill(s) 2019 [facility] apixaban 2.5 MG 2.5 mg, PO, Active Oral Tablet Q12H, 0 2020 [facility] [Eliquis] Refill(s) AMIODarone 200 mg 200 mg = 1 tab, Active oral tablet PO, Daily, # 90 2020 [place] tab, 3 Refill(s) ferrous sulfate 975 mg = 3 tab, Active 325 mg oral PO, Daily, 0 [address] [facility] [address] enteric coated Refill(s) tablet Vitamin D3 3000IU, PO, Active Daily, 0 2019 [facility] Refill(s) atorvastatin 20 20 mg = 1 tab, Active H mg oral tablet PO, Bedtime, # 2020 [facility] 30 tab, 0 Refill(s) Novolin N SUB-Q, BID, 0 Active Refill(s) 2019 [facility] 3 ML liraglutide 1.8 mg, SUB-Q, Active 6 MG/ML Prefilled Daily, # 9 mL, 2019 [facility] Syringe [Victoza] 1 Refill(s) Robitussin 200 mg =, PO, Active Q4H, 0 2019 [facility] Refill(s) carvedilol 12.5 12.5 mg = 1 Active mg oral tablet tab, PO, 0 2019 [facility] ast Refill(s) Clindamycin 900 mg, 50 mL, No Longer Route: IVPB, 2019 [facility] Drug form: INJ, PRE OP, kg, Start date: 10/17/19 12:00:00 GEOLOGICAL SAMPLE TESTER, Duration: 1 day, Stop date: 10/18/19 11:59:00 GEOLOGICAL SAMPLE TESTER, ABX Indication: Surgical Prophylaxis, 0 Vancomycin 2001 mg: No Longer infuse over 2.[address] [facility] ([place], [place]) t hours For adult patients only: Round to nearest 250 mg per Medical Staff approval MEDICATION WASTE Product Size: 1000 mg Product Wasted: ___ mg Allergies, Adverse Reactions, Alerts Substance Category Reaction Severity Reaction Status Date Comments S ource type Reported amoxicillin Assertion Drug Active MH allergy [place] Bactrim Assertion Drug Active MH allergy [place] Immunizations No Data Provided for This Section Results Order Name Results Value Reference Date Interpretation Comments [facility] CHEM PANEL Glucose Lvl 104 70 - 99 05/ [facility] [place] CHEM PANEL BUN 53 7 - 22 01/26 [place] CHEM PANEL Creatinine 2.21 0.50 - 05 MH Lvl 1.40 /2019 [place] CHEM PANEL Sodium Lvl 142 135 - 145 05 [place] CHEM PANEL Potassium 4.0 3.5 - 5.1 05/ MH Lvl /2019 [place] CHEM PANEL Chloride Lvl 108 95 - 109 05 [place] CHEM PANEL CO2 28 24 - 32 05 [facility] CHEM PANEL Calcium Lvl 9.6 8.5 - 10.5 05 MH [facility] CHEM PANEL AGAP 10.0 10.0 - 05 MH 20.0 [facility] CHEM PANEL eGFR 22 01/26 Result Comment: The [facility] eGFR is calculated using the CKD-EPI formula. In most young, healthy individuals the eGFR will be >90 mL/min/1.73m2 . The eGFR declines with age. An eGFR of 60-89 may be normal in some populations, particularly the elderly, for whom the CKD-EPI formula has not been extensively validated. Use of the eGFR is not recommended in the following populations:< br/>
Verenice viduals with unstable creatinine concentration s, including patients and those with serious co-morbid conditions.<b r/>
Patie nts with extremes in muscle mass or diet.

The data above are obtained from the National Kidney Disease Education Program (NKDEP) which additionally recommends that when the eGFR is used in patients with extremes of body mass index for purposes of drug dosing, the eGFR should be multiplied by the estimated BMI. HEMATOLOGY Segs 69.1 45.0 - 05 MH 75.0 [facility] HEMATOLOGY Lymphocytes 10.0 20.0 - 05 MH 40.0 [facility] HEMATOLOGY Monocytes 15.7 2.0 - 12.0 05 MH [facility] HEMATOLOGY Eosinophils 4.2 0.0 - 4.0 05 MH [facility] HEMATOLOGY Basophils 1.0 0.0 - 1.0 05 MH [facility] HEMATOLOGY Neutrophils 6.1 1.5 - 8.1 05/ MH # /2019 [facility] HEMATOLOGY Lymphocytes 0.9 1.0 - 5.5 01/26 MH # /2019 [facility] HEMATOLOGY Monocytes # 1.4 0.0 - 0.8 01/26 MH /2019 [facility] HEMATOLOGY Eosinophils 0.4 0.0 - 0.5 01/26 MH # /2019 [facility] HEMATOLOGY Basophils # 0.1 0.0 - 0.2 01/26 [facility] HEMATOLOGY WBC 8.9 3.7 - 10.4 01/26 [facility] HEMATOLOGY RBC 3.87 4.20 - 01/26 MH 5.40 /2019 [facility] HEMATOLOGY Hgb 11.0 12.0 - 01/26 MH 16.0 /2019 [facility] HEMATOLOGY Hct 35.0 36.0 - 01/26 MH 48.0 /2019 [facility] HEMATOLOGY MCV 90.4 80.0 - 01/26 MH 98.0 /2019 [facility] HEMATOLOGY MCH 28.5 27.0 - 01/26 MH 31.0 /[address] [facility] MCHC 31.5 32.0 - 01/26 MH 36.0 [facility] HEMATOLOGY RDW 16.3 11.5 - 01/26 MH 14.5 [facility] HEMATOLOGY Platelet 284 133 - 450 01/[address] [facility] MPV 8.8 7.4 - 10.4 01/26 /2019 [facility] URINE AND UA Turbidity Clear Clear 01/25 STOOL (01/26/20 11:25 AM) [facility] URINE AND UA Spec Grav 1.011 <=1.030 01/25 STOOL /2019 [facility] URINE AND UA pH 6.0 5.0 - 8.0 01/25 STOOL /2019 [facility] URINE AND UA Protein Negative Negative 01/25 STOOL mg/dL mg/dL [facility] URINE AND UA Glucose Negative Negative 01/25 STOOL mg/dL mg/dL [facility] URINE AND UA Ketones Negative Negative 01/25 STOOL mg/dL mg/dL /2019 [facility] URINE AND UA Bili Negative Negative 01/25 STOOL *NA* /2019 [facility] (01/26/20 11:25 AM) URINE AND UA Blood Negative Negative 01/25 STOOL (01/26/20 11:25 AM) /2019 [facility] URINE AND UA Nitrite Negative Negative 01/25 STOOL (01/26/20 11:25 AM) /2019 [facility] URINE AND UA Leuk Est Small Negative 01/25 STOOL *ABN* /2019 [facility] (01/26/20 11:25 AM) URINE AND UA Sq Epi Occasional Few /LPF 01/25 STOOL /LPF /2019 [facility] URINE AND UA WBC 8 0 - 5 01/25 STOOL [facility] URINE AND UA RBC 1 0 - 2 01/25 [facility] URINE AND UA Bacteria Occasional None Seen 01/25 STOOL /HPF /HPF [facility] URINE AND UA Mucus Few /LPF None Seen 01/25 STOOL /LPF [facility] URINE AND UA Hyal Cast 4 0 - 2 01/25 STOOL [facility] URINE AND UA Color Ltyellow 01/25 STOOL [facility] URINE AND UA <=1.0 0.1 - 1.0 01/25 STOOL Urobilinogen mg/dL /2019 [facility] CARDIAC BNP 200 <=100 01/25 ENZYMES pg/mL /2019 [facility] CARDIAC Troponin-I 0.03 0.00 - 01/25 ENZYMES 0.40 [facility] CHEM PANEL Glucose Lvl 139 70 - 99 01/25 [facility] CHEM PANEL BUN 55 7 - 22 01/25 [facility] CHEM PANEL Creatinine 2.47 0.50 - 01/25 Lvl 1.40 [facility] CHEM PANEL Sodium Lvl 139 135 - 145 01/25 [facility] CHEM PANEL Potassium 4.6 3.5 - 5.1 01/25 Lvl [facility] CHEM PANEL Chloride Lvl 105 95 - 109 01/25 [facility] CHEM PANEL CO2 29 24 - 32 01/25 [facility] CHEM PANEL Calcium Lvl 9.6 8.5 - 10.5 01/25 [facility] CHEM PANEL AGAP 9.6 10.0 - 01/25 20.0 [facility] CHEM PANEL eGFR 20 01/25 Result Comment: The [facility] eGFR is calculated using the CKD-EPI formula. In most young, healthy individuals the eGFR will be >90 mL/min/1.73m2 . The eGFR declines with age. An eGFR of 60-89 may be normal in some populations, particularly the elderly, for whom the CKD-EPI formula has not been extensively validated. Use of the eGFR is not recommended in the following populations:< br/>
Verenice viduals with unstable creatinine concentration s, including patients and those with serious co-morbid conditions.<b r/>
Patie nts with extremes in muscle mass or diet.

The data above are obtained from the National Kidney Disease Education Program (NKDEP) which additionally recommends that when the eGFR is used in patients with extremes of body mass index for purposes of drug dosing, the eGFR should be multiplied by the estimated BMI. CHEM PANEL Magnesium 2.4 1.8 - 2.4 05/21 MH Lvl /2020 [facility] CHEM PANEL Phosphorus 3.7 2.5 - 4.5 05/ MH /2019 [facility] CHEM PANEL Total 7.1 6.4 - 8.4 05/21 MH Protein /2019 [facility] CHEM PANEL Albumin Lvl 3.0 3.5 - 5.0 05/21 MH /2020 [facility] CHEM PANEL ALT 28 0 - 65 05/ MH /2019 [facility] CHEM PANEL AST 29 0 - 37 05/ MH [facility] CHEM PANEL Alk Phos 94 39 - 136 / MH [facility] CHEM PANEL Bili Total 0.4 0.2 - 1.3 05/ MH /2019 [facility] CHEM PANEL Bili Direct <0.1 0.0 - 0.3 / MH [facility] CHEM PANEL Globulin 4.1 2.7 - 4.2 05/ MH /2019 [facility] CHEM PANEL A/G Ratio 0.7 0.7 - 1.6 05/ MH /2019 [facility] CHEM PANEL Bili >0.3 0.0 - 1.0 05/ MH Indirect /2019 [facility] HEMATOLOGY WBC 9.7 3.7 - 10.4 / MH [facility] HEMATOLOGY RBC 3.92 4.20 - 01/25 MH 5.40 /2019 [facility] HEMATOLOGY Hgb 11.4 12.0 - 01/25 MH 16.0 [facility] HEMATOLOGY Hct 35.0 36.0 - 05 MH 48.0 [facility] HEMATOLOGY MCV 89.3 80.0 - 05 MH 98.0 [facility] HEMATOLOGY MCH 29.1 27.0 - 05 MH 31.0 [facility] HEMATOLOGY MCHC 32.6 32.0 - 05 MH 36.0 [facility] HEMATOLOGY RDW 16.2 11.5 - 05 MH 14.5 [facility] HEMATOLOGY Platelet 331 133 - 450 05/21 MH /2019 [facility] HEMATOLOGY MPV 9.0 7.4 - 10.4 05/21 MH /2019 [facility] HEMATOLOGY PTT 29.5 22.9 - 05/21 MH 35.8 /2019 [facility] HEMATOLOGY PT 15.8 12.0 - 05/ MH 14.7 /2020 [facility] HEMATOLOGY INR 1.25 0.85 - 05/ MH 1.17 /2019 [facility] HEMATOLOGY Segs 71.4 45.0 - 05/ MH 75.0 /2019 [facility] HEMATOLOGY Lymphocytes 10.1 20.0 - 05/ MH 40.0 /2019 [facility] HEMATOLOGY Monocytes 13.7 2.0 - 12.0 05/ MH /2019 [facility] HEMATOLOGY Eosinophils 3.8 0.0 - 4.0 05/21 MH /2019 [facility] HEMATOLOGY Basophils 1.0 0.0 - 1.0 05/ MH /2019 [facility] HEMATOLOGY Neutrophils 6.9 1.5 - 8.1 05/ MH # /2019 [facility] HEMATOLOGY Lymphocytes 1.0 1.0 - 5.5 05/ MH # /2019 [facility] HEMATOLOGY Monocytes # 1.3 0.0 - 0.8 05/ MH /2019 [facility] HEMATOLOGY Eosinophils 0.4 0.0 - 0.5 05/ MH # /2019 [facility] HEMATOLOGY Basophils # 0.1 0.0 - 0.2 05/ MH /2019 [facility] ELECTROLYT Potassium 4.1 3.5 - 5.1 10/20 ES Lvl /2019 [facility] BLOOD BANK ABO/Rh O POS 10/17 RESULTS /2019 [facility] BLOOD BANK Antibody Negative 10/17 RESULTS Scrn (10/17/19 1:09 PM) /2019 [facility] ast CHEM PANEL Glucose Lvl 127 70 - 99 02 [facility] CHEM PANEL BUN 51 7 - 22 02 [facility] CHEM PANEL Creatinine 2.62 0.50 - 02/10 Lvl 1.40 [facility] CHEM PANEL Sodium Lvl 143 135 - 145 02/10 [facility] CHEM PANEL Potassium 4.6 3.5 - 5.1 02/10 Lvl /2019 [facility] CHEM PANEL Chloride Lvl 109 95 - 109 02/ [facility] CHEM PANEL CO2 30 24 - 32 02/ [facility] CHEM PANEL Calcium Lvl 9.4 8.5 - 10.5 02/ [facility] CHEM PANEL AGAP 8.6 10.0 - 02/10 MH 20.0 [facility] CHEM PANEL eGFR 18 0210 Result Comment: The [facility] eGFR is calculated using the CKD-EPI formula. In most young, healthy individuals the eGFR will be >90 mL/min/1.73m2 . The eGFR declines with age. An eGFR of 60-89 may be normal in some populations, particularly the elderly, for whom the CKD-EPI formula has not been extensively validated. Use of the eGFR is not recommended in the following populations:< br/>
Verenice viduals with unstable creatinine concentration s, including patients and those with serious co-morbid conditions.<b r/>
Patie nts with extremes in muscle mass or diet.

The data above are obtained from the National Kidney Disease Education Program (NKDEP) which additionally recommends that when the eGFR is used in patients with extremes of body mass index for purposes of drug dosing, the eGFR should be multiplied by the estimated BMI. HEMATOLOGY Segs 73.1 45.0 - 02/10 MH 75.0 /2019 [facility] HEMATOLOGY Lymphocytes 9.9 20.0 - 02/10 MH 40.0 /2019 [facility] HEMATOLOGY Monocytes 13.3 2.0 - 12.0 02/10 MH /2020 [place] [facility] [facility] HEMATOLOGY Eosinophils 2.7 0.0 - 4.0 02/10 [facility] /2020 [facility] HEMATOLOGY Basophils 1.0 0.0 - 1.0 02/10 [facility] /2019 [facility] HEMATOLOGY Neutrophils 5.7 1.5 - 8.1 02/10 [facility] # /2020 [facility] HEMATOLOGY Lymphocytes 0.8 1.0 - 5.5 02/10 [facility] # /2020 [facility] HEMATOLOGY Monocytes # 1.0 0.0 - 0.8 02/10 [facility] /2020 [facility] HEMATOLOGY Eosinophils 0.2 0.0 - 0.5 02/10 [facility] # /2020 [facility] HEMATOLOGY Basophils # 0.1 0.0 - 0.2 02/10 MH /2020 [facility] HEMATOLOGY WBC 7.8 3.7 - 10.4 02/10 MH /2020 [facility] HEMATOLOGY RBC 3.79 4.20 - 02/10 MH 5.40 /2020 [facility] HEMATOLOGY Hgb 11.3 12.0 - 02/10 MH 16.0 /2020 [facility] HEMATOLOGY Hct 35.1 36.0 - 02/10 MH 48.0 /2020 [facility] HEMATOLOGY MCV 92.6 80.0 - 02/10 MH 98.0 /2020 [facility] HEMATOLOGY MCH 29.8 27.0 - 02/10 MH 31.0 /2019 [facility] HEMATOLOGY MCHC 32.1 32.0 - 02/10 MH 36.0 /2019 [facility] HEMATOLOGY RDW 16.9 11.5 - 10/17 14.5 [facility] HEMATOLOGY Platelet 304 133 - 450 10/17 [facility] HEMATOLOGY MPV 8.5 7.4 - 10.4 02 [facility] HEMATOLOGY PT 15.2 12.0 - 10/17 14.7 [facility] HEMATOLOGY INR 1.19 0.85 - 10/17 1.17 [facility] HEMATOLOGY PTT 26.4 22.9 - 10/17 35.8 /2019 [facility] SPECIAL Hgb A1C 7.9 <=5.6 % 10/17 CHEMISTRY [facility] Pathology Reports No Data Provided for This Section Diagnostic Reports Report Value Date Source Chest 1view DX PROCEDURE INFORMATION: 01/26/2020 [facility] Exam: XR Chest, 1 View Exam date and time: 01/26/2020 9:50 AM Age: 69 years old Clinical indication: /palpitations TECHNIQUE: Imaging protocol: XR of the chest Views: 1 view. COMPARISON: CR CHEST 2 VIEWS DX 10/17/2019 1:29 PM FINDINGS: Lungs: There is central pulmonary venous congestion with minimal prominence of the bilateral pulmonary interstitial markings. N o focal pulmonary consolidation. The lungs are hyperexpanded. Pleural space: Unremarkable. No pleural effusion . No pneumothorax. Heart/Mediastinum: The cardi ac silhouette appears mildly enlarged. The superior mediastinal contours are within normal limits fo r appearance. The thoracic aorta appears calcified. Bones/joints: Unremarkable. IMPRESSION: 1. Pulmonary hyperexpansion with mild cardiomega ly and findings suggesting minimal pulmonary interstitial edema. No focal p ulmonary consolidation. Nazario Nagel MD On 01/26/2020 10:16:51; [facility] [id number] Chest 2 views DX PROCEDURE INFORMATION: 10/17/2019 [facility] Exam: XR Chest, 2 Views Exam date and time: 10/17/2019 1:29 PM Age: 69 years old Clinical indication: Coughing/preoperative TECHNIQUE: Imaging protocol: XR of the chest Views: 2 views. PA and Lateral COMPARISON: No relevant prior studies available. FINDINGS: Lungs: Prominence of the interstitium throughout the lungs may represent a component of mild edema or n onspecific interstitial pneumonitis. Increased lung volumes suggest emphysematous changes. Pleural space: No pleural effusions and no pneum othorax. Heart/Mediastinum: Enlarged cardiac silhouette. Aortic calcification. Mediastinal structures otherwise unremarkable. Bones/joints: Degenerative changes are seen abou t the thoracic spine. IMPRESSION: 1. Prominence of the interstitium throughout the lungs may represent a mild edema or nonspecific interstitial pneumonitis. 2. Increased lung volumes suggest emphysematous changes. Jeo Ramirez MD On 10/17/2019 14:19:05; V [id number] Consultation Notes No Data Provided for This Section Discharge Summaries No Data Provided for This Section History and Physicals No Data Provided for This Section Vital Signs Vital Sign Value Date Comments Source Temperature Oral (F) 98.1 F 01/27/2020 [facility] Rate 71 01/27/2020 [facility] Rate 18 01/27/2020 [facility] Systolic (mm Hg) 133 01/27/[place] [facility] Diastolic (mm Hg) 54 01/27/[address] Temperature Oral (F) 98.2 F 01/27/2020 [facility] Rate 69 01/27/2020 [facility] Rate 18 01/27/2020 [facility] Systolic (mm Hg) 139 01/27/2020 [facility] Diastolic (mm Hg) 57 01/27/[address] Temperature Oral (F) 98.0 F 01/27/2020 [facility] Rate 73 01/27/2020 [facility] Rate 18 01/27/2020 [facility] Systolic (mm Hg) 127 01/27/2020 [facility] Diastolic (mm Hg) 64 01/27/[address] Height 154.94 cm 01/26/2020 [facility] BMI Calculated 54.91 01/26/2020 [facility] Weight 131.818 01/26/2020 [facility] Systolic (mm Hg) 156 10/20/2019 [place] [facility] Diastolic (mm Hg) 59 10/20/[address] Systolic (mm Hg) 158 10/20/2019 [facility] [facility] Diastolic (mm Hg) 51 10/20/[address] Systolic (mm Hg) 163 10/20/2019 [facility] Diastolic (mm Hg) 54 10/20/[address] [facility] Rate 24 10/20/2019 [facility] Rate 18 10/20/2019 [facility] Rate 16 10/20/2019 [facility] Rate 56 10/20/2019 [facility] Height 156.21 cm 10/17/2019 [facility] Weight 132.545 10/17/2019 [facility] BMI Calculated 54.32 10/17/2019 [facility] Encounters Location Location Encounter Encounter Reason Attending ADM DC Stat us Source Details Type Number For Provider Date Date Visit Day Surgery [id number] Fabian 10/20 10/20 Nelson Lopez /2019 [facility] [id number] Eligio 01/25 01/26 [facility] Ambrocio /2019 [facility] Procedures Procedure Code Date Perfomer Comments Source Bilateral tubal [id number] [facility] ast ligation Hysterectomy [id number] [facility] Assessment and Plan Assessment and Plan Date Source Extracted from:Title: Cardiology Progress Note 01/27/2020 [facility] Author: Garret Bardales MD Date: 01/27/20 CARDIOLOGY PROGRESS NOTE: SUBJECTIVE: No chest pain/discomfort, worsening dysp kyree, palpitations, dizziness, or syncope. Heart rates have improved. OBJECTIVE: Vitals Tmp(F) Pulse BP RR SpO2 FIO2 01/26 07:47 98.1 71 133/54 18 97 --- 01/26 04:00 98.2 69 139/57 18 98 --- 01/26 00:00 98.0 73 127/64 18 100 --- 01/25 20:00 97.7 108 134/67 18 100 --- 01/25 18:31 97.9 103 149/68 19 98 --- 24 Hr Tmax: 98.2F (36.78c) at 01/26 04:0 0 Vital Signs are the last 5 in the past 48 hours. Physical Exam: GEN: No acute distress, cooperative with exam Pulmonary: normal effort, CTABL CVS: S1&S2, irregular, soft systolic murmur, stable peripher al edema ABD: soft, non-tender, non-distended, BS+ Data Pertinent labs and/images were reviewed in the electronic alth record. Scheduled Meds (7): 01/27/20 AMIODarone 200 mg PO Daily 01/27/20 allopurinol 100 mg PO Daily 01/26/20 (Suspended) apixaban (Eliquis) 2.5 mg PO Q12H 01/26/20 atorvastatin 20 mg PO Bedtime 01/26/20 docusate 100 mg PO BID 01/26/20 insulin isophane (insulin isophane-NPH) 38 unit SUB -Q Q12H 01/26/20 metoprolol (metoprolol tartrate) 100 mg PO Q12H ASSESSMENT: KATELIN MUNSON is a 69-year-old fem everette presenting to outpatient clinic for preop assessment regarding AV fistula formation who was found to be in atrial fibrillation with rapid ventricular response. Her pertinent problem list includes: 1. Paroxysmal atrial fibrillation with rapid ventricular re sponse, improved 2. Long-term use of anticoagulants, namely apixaban 3. Preoperative cardiovascular risk examination 4. Hypertension 5. Dyslipidemia 6. End-stage renal disease 7. Morbid obesity with obstructive sleep apnea PLAN/RECOMMENDATIONS: - The patient's electrocardiogram was re viewed. 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 This can be followed in the outpatient setting but it is reasonable to consult endocrinology - The patient did take her apixaban thi s morning. Ideally, she should have a washout of 48 hours prior to surgery. She has surgery scheduled now for next . She knows to hold it two days before (last dose Thursday evening) - The patient is at average to slightly higher than average, but acceptable, risk for surgery. While she is not functional and unlikely achieve >4 METS at home, she follows with her primary card iologist closely who is been doing seria l stress test. She states that she has never had an abnormal stress test or required coronary angiography. - Echocardiogram pending - Goal blood pressure <130/80 mmHg - Vascular surgery to follow regarding A V fistula formation along with nephrology regarding dialysis needs - When the patient is ready for discharg e, she should follow-up with her primary complaint evaluation supervisor 1-[address] Art Zafar in [place], [place] Thank you for allowing me to participate in this patients care. Please do not hesitate to contact me with any questions or concerns. 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 Extracted from:Title: Cardiology Consultation Note Author: Garret Bardales MD Date: 01/26/20 CARDIOLOGY CONSULTATION NOTE: Chief Complaint/Reason for Consult: Atrial fibrillation Referring Service/Provider: Emergency medicine History of Present Illness: KATELIN MUNSON is a very pleasant [age]-year-old female with a pertinent history below who presented to preoperative clinic as part of her assessment prior to undergoing outpatient AV fistul a formation. While she was in her preop erative evaluation, she was notably tachycardic. She was found to be in atrial fibrillation with rapid ventricular response and was referred to the ED. This is a longstanding problem for Mrs. Munson. S he follows with her primary complaint evaluation supervisor Dr. Art Zafar in [place], [place] regularly. She normally takes her carvedilol, amiodarone, and apixaban. She took her last dose of apixaban this morning. Nolan pite her rapid ventricular response, she does not feel any specific symptoms. 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 This is primarily because of bilateral knee pain. 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 Pertinent History/Cardiovascular History: Paroxysmal atrial fibrillation on chronic anticoagulation wi th apixaban End-stage renal disease Hypertension Diabetes mellitus, type II Cancer, uterine Arthritis Gout Review of Systems: A 12-point review of systems was perform ed and was negative except as mentioned in the above HPI. Medications: Medications (21) Active Scheduled Meds (7): 01/27/20 AMIODarone 200 mg PO Daily 01/27/20 allopurinol 100 mg PO Daily 01/26/20 (Suspended) apixaban (Eliquis) 2.5 mg PO Q12H 01/26/20 atorvastatin 20 mg PO Bedtime 01/26/20 docusate 100 mg PO BID 01/26/20 insulin isophane (insulin isophane-NPH) 38 unit SUB -Q Q12H 01/26/20 metoprolol (metoprolol tartrate) 100 mg PO Q12H Unscheduled Meds: None PRN Meds (11): 01/26/20 Dextrose 50% in Water IV (Dextrose 50% Syring e (D50W)) 12.5 gm IVP PRN 01/26/20 Dextrose 50% in Water IV (Dextrose 50% Syringe (D50 W)) 25 gm IVP PRN 01/26/20 acetaminophen 650 mg PO Q4H 01/26/20 glucagon 1 mg IM PRN 01/26/20 insulin lispro 1 unit SUB-Q TID-Before Meals 01/26/20 insulin lispro 2 unit SUB-Q TID-Before Meals 01/26/20 insulin lispro 3 unit SUB-Q TID-Before Meals 01/26/20 insulin lispro 4 unit SUB-Q TID-Before Meals 01/26/20 insulin lispro 5 unit SUB-Q TID-Before Meals 01/26/20 metoprolol (metoprolol 5 mg/5 ml INJ) 5 mg IVP Q6H 01/26/20 ondansetron 4 mg IVP Q8H One Time Meds (3): 01/26/20 (Completed) metoprolol (metoprolol 5 mg/5 ml INJ) 2.5 mg IVP ONCE 01/26/20 (Completed) metoprolol (metoprolol 5 mg/5 ml INJ) 5 mg IVP ONCE 01/26/20 (Completed) metoprolol (metoprolol tartrate) 50 mg PO ONCE Continuous Infusions: None Allergies: Allergies: Bactrim, amoxicillin Family History: Reviewed and noncontributory; no family history of premature atherosclerosis Social History: Alcohol Details: Never Tobacco Details: Use: Never smoker. Type: Cigar ettes. Tobacco smoke exposure: None. Did the Patient Smoke Cigarettes Anytime During the Last 365 Days? No. Cessation Counseling Provided? No. Physical Exam: Vitals Tmp(F) Pulse BP RR SpO2 FIO2 01/25 14:20 ---- 118 132/90 19 98 --- 01/25 12:56 ---- 120 144/76 18 99 --- 01/25 12:24 ---- 120 157/111 22 98 --- 01/25 11:42 ---- 112 ----- 18 99 --- 01/25 11:28 ---- 114 153/109 18 99 --- 24 Hr Tmax: 98.1F (36.72c) at 01/25 09:4 3 Vital Signs are the last 5 in the past 48 hours. GEN: No acute distress, cooperative with exam, obese EYES: sclera anicteric, EOMI HEENT: NC/AT, OMM, neck supple Pulmonary: normal effort, CTABL CVS: S1&S2, tachycardic and irregular, s oft systolic murmur, bilateral lower extremity edema ABD: soft, NT/ND, BS+ TRUE: Nonfocal, motor and sensory function grossly intact MSK: nontender, normal bulk/tone SKIN: normal turgor; blister noted over anterior monteiro of the left leg PSY: Normal mood and affect Data: Pertinent labs and/or images were reviewed in the electronic health record. ASSESSMENT: KATELIN MUNSON is a 69-year-old fem everette presenting to outpatient clinic for preop assessment regarding AV fistula formation who was found to be in atrial fibrillation with rapid ventricular response. Her pertinent problem list includes: 1. Paroxysmal atrial fibrillation with rapid ventricular re sponse 2. Long-term use of anticoagulants, namely apixaban 3. Preoperative cardiovascular risk examination 4. Hypertension 5. Dyslipidemia 6. End-stage renal disease 7. Morbid obesity with obstructive sleep apnea PLAN/RECOMMENDATIONS: - The patient's electrocardiogram was re viewed. 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 This can be followed in the outpatient setting but it is reasonable to consult endocrinology - The patient did take her apixaban thi s morning. Ideally, she should have a washout of 48 hours prior to surgery - The patient is at average to slightly higher than average, but acceptable, risk for surgery. While she is not functional and unlikely achieve >4 METS at home, she follows with her primary card iologist closely who is been doing seria l stress test. She states that she has never had an abnormal stress test or required coronary angiography. - I will obtain an echocardiogram to assess her murmur - Goal blood pressure <130/80 mmHg - Vascular surgery to follow regarding A V fistula formation along with nephrology regarding dialysis needs - Will continue to follow - When the patient is ready for discharg e, she should follow-up with her primary complaint evaluation supervisor 1-[address] Art Zafar in [place], [place] Thank you for allowing me to participate in this patients care. Please do not hesitate to contact me with any questions or concerns. 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 Extracted from:Title: General Admission H&P * Author: Eligio Albrecht MD Date: 01/26/20 Impression and Plan AF with RVR: On amidarone coreg at home. cont same and on apixaban for anticoag. Prn metoprolol and cardiology consult DM; On home insulin NPH 40 am 38 pm and SSI Gout: cont allopurinol CKD 5: Needed AV fistula placement. Card iology consult for pre-op eval. Vascular surgery following DVT prophylaxis on eliquis Code status CPR Dispo: Home once stable Plan of Care No Data Provided for This Section Social History Social History Date Source Social History TypeResponse 01/27/2020 [facility] Alcohol Never Smoking Status Never smoker; Previous treatment: None; Exposure to Tobacco Smoke None; Cigarette Smoking Last 365 Days No; Reg Smoking Cessation Counseling No entered on: 01/26/20 Family History No Data Provided for This Section Advance Directives No Data Provided for This Section Functional Status No Data Provided for This Section
--- OUTSIDE RECORDS SUMMARY | 2020-06-22 16:53 | XMS REPORT | Continuity of Care Document ---
:1950 Author Organization [facility] t Address [address] [place] [address] Care Team Providers Name Role Phone Ralph HIDALGO Primary Care Physician Unavailable Ralph Hidalgo MD Attending Clinician Arturo CHOI Attending Clinician Ralph HIDALGO Attending Clinician Unavailable Ambrocio Attending Clinician Ivan CHOI Attending Clinician Pankaj Lopez Attending Clinician Ambrocio Admitting Clinician Payers Payer Name Policy Type Policy Effective Date Expiration Date Sour ce Number MEDICAREMEDICARE PART [id number] 2017 MD Emiliano Costa AND 00:00:00 [id number] 2017-P [id number] [place], [place]AM[place]A [id number] 2014 MD Leda quevedo MEDICARE 00:00:00 [id number] starr Other Problems Condition Condition Condition Status Onset Resolution Last Treating Co mments Source Name Details Category Date Date Treatment Clinician Date 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 2020-01-26 Mem oria 01-25 10:21:00 l CAN MAKER 00:00: Nelson 00 Active 01/26/2020 [facility] ATRIAL Diagnosis Active 2020-01-27 Mem oria FIBRILLATI 01-25 15:55:00 l ON WITH ATRIAL 00:00: [place] RVR, HEART FIBRILLATI 00 PALP ON WITH RVR, HEART PALP Active 01/26/2020 [facility] UNK Diagnosis Active 2020-01-26 Mem oria 01-01 09:22:00 l UNK 00:00: Nelson 00 Active 01/02/2020 [facility] AVF Diagnosis Active 2018-092019-10-21 Mem oria CREATION, 10-16 15:11:00 l LEFT UPPER AVF 00:00: Guru n EXTREMITY CREATION, 00 LEFT UPPER EXTREMITY Active 08/15/2019 [facility] Renal Renal Disease Active impairment impairment 2-13 An derso 00:00: n 00 Morbid Morbid Disease Active (severe) (severe) 05-14 Rg o obesity obesity 00:00: n due to due to 00 excess excess calories calories Peripheral Peripheral Disease Active M D edema edema 02-05 Anderso 00:00: n 00 Essential Essential Disease Active 2015-09 (primary) (primary) 10-08 Mike rso hypertensi hypertensi 00:00: n on on 00 alf alf Disease Active 2015-09 current current 10-08 Anderso use of use of 00:00: n anticoagul anticoagul 00 ant ant Malignant Malignant Disease Active 2015-09 neoplasm neoplasm 10-06 Rg o of of 00:00: n endometriu endometriu 00 m m Atrial Atrial Disease Active 2015-09 fibrillati fibrillati 10-06 An derso on on 00:00: n 00 Cellulitis Problem Resolve 2020-01-29 Memoria (disorder) d 21:34:11 l Nelson Cellulitis (disorder) Resolved Problem 01/29/2020 left lower leg--treat ed with antibiotic s [facility] Malignant Problem Resolve 2020-01-29 M emoria neoplasm d 21:34:11 l of uterus [place] (disorder) Malignant neoplasm of uterus (disorder) Resolved Problem 01/29/2020 [facility] Arthritis Problem Active 2020-01-29 Me moria (disorder) 21:34:11 l Nelson Arthritis (disorder) Active Problem 01/29/2020 both knees [facility] Diabetes Problem Active 2020-01-29 [facility] oria mellitus 21:34:11 l (disorder) Diabetes He rmann mellitus (disorder) Active Problem 01/29/2020 [facility] Dyspnea on Problem Active 2020-01-29 M emoria exertion 21:34:11 l (finding) Dyspnea Herm jules on exertion (finding) Active Problem 01/29/2020 [facility] End stage Problem Active 2020-01-29 Me moria renal 21:34:11 l disease End Nelson (disorder) stage renal disease (disorder) Active Problem 01/29/2020 [facility] Gout Problem Active 2020-01-29 Memor ia (disorder) 21:34:11 l Gout Nelson (disorder) Active Problem 01/29/2020 [facility] Hypertensi Problem Active 2020-01-29 M emoria ve 21:34:11 l disorder, Nelson systemic Hypertensi arterial ve (disorder) disorder, systemic arterial (disorder) Active Problem 01/29/2020 [facility] Paroxysmal Problem Active 2020-01-29 M emoria atrial 21:34:11 l fibrillati Guru n on Paroxysmal (disorder) atrial fibrillati on (disorder) Active Problem 01/29/2020 [facility] Sleep Problem Active 2020-01-29 Memor ia apnea 21:34:11 l (finding) Sleep Guru n apnea (finding) Active Problem 01/29/2020 [facility] UNSPECIFIE Diagnosis Active 2020-01-27 Memoria D ATRIAL 15:55:00 l FIBRILLATI Guru n ON UNSPECIFIE D ATRIAL FIBRILLATI ON Active [facility] PALPITATIO Diagnosis Active 2020-01-27 Memoria NS 15:55:00 l Nelson PALPITATIO NS Active [facility] END STAGE Diagnosis Active 2020-01-27 Memoria RENAL 15:55:00 l DISEASE END [place] STAGE RENAL DISEASE Active [facility] Allergies, Adverse Reactions, Alerts Allergy Allergy Status Severity Reaction(s) Onset Inactive Treating Comm ents Source Name Type Date Date Clinician amoxicil amoxicil Active Memori a anna anna l Nelson Bactrim Bactrim Active Memoria l [place] Family History Family Member Diagnosis Comments Start Date Stop Date Source Maternal aunt -Breast cancer MD Mike broderick Maternal grandmother Hypertension MD Cummings Maternal grandmother Stroke MD Igor daniels Natural mother Stroke MD Leda quevedo Social History Social Habit Start Date Stop Date Quantity Comments Source Sex Assigned At MD Diez on Social History 2020-01-27 2020-01-27 [facility] 00:27:23 00:27:23 Tobacco use and 2019-06-02 2019-06-02 Never used MD Diez on exposure 00:00:00 00:00:00 Alcohol intake 2019-06-02 2019-06-02 Current MD Leda quevedo 00:00:00 00:00:00 non-drinker of alcohol (finding) Tobacco Comment 2016-08-06 2016-08-06 has had secondhand Keke Cummings 00:00:00 00:00:00 smoke exposure Smoking Status Start Date Stop Date Source Never smoker MD Cummings Medications Ordered Filled Start Stop Current Ordering Indication Dosage Frequency Signature Comments Components Source Medication Medication Date Date Medication? Clinician (SIG) Name Name carvedilol No Notes: Memor ia 01-27 Give with l 02:00: food. (Same As: Coreg) carvedilol No Notes: Memor ia 01-26 Give with l 14:00: food. (Same As: Coreg) Allopurinol No Notes: Baldo hong - (Same as: l 14:00: Zyloprim) Amiodarone No Notes: Memor ia 01-26 (Same as: l 14:00: Cordarone) insulin, No Notes: Memoria isophane 01-26 (Same as: l 02:00: Humulin N) Roll in palms of hands gently; Do not shake vigorously . WASTE: F/P - Black; E - Municipal Trash Bin Stable for 31 days at room temperatur e Expires in days from ____Date metoprolol No Notes: Memor ia tartrate - (Same as: l 02:00: Lopressor) Eliquis No Notes: Memoria - Same as: l 02:00: Eliquis atorvastati No Notes: Baldo hong n - (Same As: l 02:00: Lipitor) Docusate No Notes: Memoria - (Same as: l 22:00: Colace) (Do Not Crush) carvedilol No 12.5 mg, Mem oria - Route: PO, l 22:00: Drug form: TAB, BID, Dosing Weight 131.818, kg, Start date: 01/26/20 17:00:00 CDT, Duration: 30 day, Stop date: 02/25/20 9:00:00 CDT Dextrose 2020-0 No 12.5 gm, Memor ia 50% Syringe - 25 mL, l (D50W) 18:25: Route: [place] 00 IVP, Drug Form: INJ, Dosing Weight 131.818, kg, PRN, PRN Blood Glucose Results, Start date: 01/26/20 13:25:00 CDT, Duration: 30 day, Stop date: 02/25/20 13:24:00 CDT, 0 Glucagon 2020-0 No 1 mg, Memoria - Route: IM, l 18:25: Drug form: PDR/INJ, PRN, Dosing Weight 131.818, kg, PRN Blood Glucose Results, Start date: 01/26/20 13:25:00 CDT, Duration: 30 day, Stop date: 02/25/20 13:24:00 CDT, 0 Insulin 2020-0 No Notes: Memoria Lispro - (Same as: l 18:25: Humalog) Roll in palms of hands gently; Do not shake vigorously . WASTE: F/P - Black; E - Municipal Trash Bin Stable for 28 days at room temperatur e. Expires in days from ____Date Metoprolol 2020-0 No Notes: Memor ia 5-21 (Same as: l 18:10: Lopressor) Push over 2 minutes Dextrose 2020-0 No 25 mL, Memoria 50% Syringe - Route: l (D50W) 18:06: IVP, Dosing Weight 131.818, kg, PRN, PRN Blood Glucose Results, Start date: 01/26/20 13:06:00 CDT, Duration: 30 day, Stop date: 02/25/20 13:05:00 CDT Glucagon 2020-0 No 1 mg, Memoria 5-21 Route: IM, l 18:06: PRN, Dosing Weight 131.818, kg, PRN Blood Glucose Results, Start date: 01/26/20 13:06:00 CDT, Duration: 30 day, Stop date: 02/25/20 13:05:00 CDT Ondansetron 2019-0 No Notes: Baldo hong 5-21 (Same as: l 18:06: Zofran) MEDICATION WASTE Product Size: 4 mg Product Wasted: ___ mg Acetaminoph 2020-0 No Notes: Do M emoria en - not exceed l 18:06: 4 gm/day. (Same as: Tylenol) metoprolol 2019-0 No Notes: Memor ia tartrate - (Same as: l 16:48: Lopressor) Metoprolol 2019-0 No Notes: Memor ia 5-21 (Same as: l 15:25: Lopressor) Push over 2 minutes Metoprolol 2019-0 No Notes: Memor ia 5-21 (Same as: l 14:56: Lopressor) Push over 2 minutes Calcium 2019-0 No 1,000 mL, Memor ia Chloride 2-13 Rate: 125 l 0.0014 17:45: ml/hr, Nelson MEQ/ML / 00 Infuse Potassium over: 8 Chloride hr, Route: 0.004 IV, Dosing MEQ/ML / Weight Sodium 132.545 Chloride kg, Total 0.103 Volume: MEQ/ML / 1,000, Sodium Start Lactate date: 0.028 10/20/19 MEQ/ML 11:45:00 Injectable DIE ASSEMBLER, Solution Duration: 30 day, Stop date: 11/19/19 11:44:00 CDT, 2.45, m2 Acetaminoph 2019-0 No 1,000 mg, M nickria en 10-20 Route: l 17:45: IVPB, Drug [place] form: INJ, ONCE, Dosing Weight 132.545, kg, PRN Pain Score 1-3, Start date: 10/20/19 11:45:00 DIE ASSEMBLER Oxycodone 2019-0 No 5 mg, Memoria Hydrochlori 2-13 Route: PO, l de 5 MG 17:45: Drug form: Herm jules Oral Tablet 00 TAB, Q4H, Dosing Weight 132.545, kg, PRN Pain Score 4-6, Start date: 10/20/19 11:45:00 DIE ASSEMBLER, Duration: 30 day, Stop date: 11/19/19 11:44:00 CDT Morphine 2020-0 No 2 mg, Memoria 2-13 Route: l 17:45: IVP, Nelson 00 Q5Min, Dosing Weight 132.545, kg, PRN Pain Score 4-6, Start date: 10/20/19 11:45:00 DIE ASSEMBLER, Duration: 5 doses or times, Stop date: Limited # of times Fentanyl 2020-0 No 25 Memoria 2-13 microgram, l 17:45: Route: [place] 00 IVP, Q5Min, Dosing Weight 132.545, kg, PRN Pain Score 4-6, Priority: Routine, Start date: 10/20/19 11:45:00 DIE ASSEMBLER, Duration: 4 doses or times, Stop date: Limited # of times Hydromorpho 2020-0 No 0.5 mg, Mem oria ne 2-13 Route: l 17:45: IVP, Nelson 00 Q5Min, Dosing Weight 132.545, kg, PRN Pain Score 7-10, Start date: 10/20/19 11:45:00 DIE ASSEMBLER, Duration: 4 doses or times, Stop date: Limited # of times Flumazenil 2020-0 No 0.2 mg, Baldo hong 2-13 Route: l 17:45: IVP, PRN, Dosing Weight 132.545, kg, PRN Benzodiaze pine Reversal, Initial dose, Start date: 10/20/19 11:45:00 DIE ASSEMBLER, Duration: 30 day, Stop date: 11/19/19 12:44:00 CDT Naloxone 2020-0 No 0.4 mg, Memori a 2-13 Route: l 17:45: IVP, [place] 00 Q2MIN, Dosing Weight 132.545, kg, PRN Narcotic Reversal, Start date: 10/20/19 11:45:00 DIE ASSEMBLER, Duration: 8 doses or times, Stop date: Limited # of times Diphenhydra 2020-0 No 12.5 mg, Me moria mine 2-13 Route: l 17:45: IVP, Drug form: INJ, Q6H, Dosing Weight 132.545, kg, PRN Itching, Start date: 10/20/19 11:45:00 DIE ASSEMBLER, Duration: 30 day, Stop date: 11/19/19 11:44:00 CDT Meperidine 2020-0 No 12.5 mg, Mem oria 2-13 Route: l 17:45: IVP, Nelson 00 Q30Min, Dosing Weight 132.545, kg, PRN Other -See Comment, For shivering, Start date: 10/20/19 11:45:00 DIE ASSEMBLER, Duration: 2 doses or times, Stop date: Limited # of times Ondansetron 2020-0 No 4 mg, Memor ia 2-13 Route: l 17:45: IVP, ONCE, Dosing Weight 132.545, kg, PRN Nausea & Vomiting, Start date: 10/20/19 11:45:00 DIE ASSEMBLER Promethazin 2019-0 No 6.25 mg, Me moria e 2-13 Route: l 17:45: IVPB, ONCE, Dosing Weight 132.545, kg, PRN Nausea & Vomiting, Start date: 10/20/19 11:45:00 DIE ASSEMBLER 72 HR 2019-0 Yes 1 patch, Memoria Scopolamine - Route: l 0.0139 17:45: TOP, Drug Guru n MG/HR 00 Form: Transdermal ERFILM, Patch Dosing Weight 132.545, kg, ONCE, Apply behind ear. Avoid use in elderly., Start date: 10/20/19 11:45:00 DIE ASSEMBLER, Stop date: 10/20/19 11:45:00 DIE ASSEMBLER glycopyrrol 2019-0 No Route: IV, Memoria ate (ANES) 2-13 Drug form: l 17:12: INJ, ONCE, Stop date: 10/20/19 11:12:00 DIE ASSEMBLER neostigmine 2019-0 No Route: IV, Memoria (ANES) 2-13 Drug form: l 17:12: INJ, ONCE, Stop date: 10/20/19 11:12:00 DIE ASSEMBLER dexamethaso 2020-0 No Route: IV, Memoria ne (ANES) 2-13 Drug form: l 16:48: INJ, ONCE, Stop date: 10/20/19 10:48:00 DIE ASSEMBLER famotidine 2020-0 No Route: IV, M emoria (ANES) 2-13 Drug form: l 16:43: INJ, ONCE, [place] 00 Stop date: 10/20/19 10:43:00 DIE ASSEMBLER albuterol 2020-0 No Route: IV, Me moria (ANES) 2-13 Drug form: l 16:38: AERO/A, Nelson 00 ONCE, Stop date: 10/20/19 10:38:00 DIE ASSEMBLER norepinephr 2020-0 No Route: IV, Memoria ine (ANES) 2-13 Drug form: l 16:38: INJ, ONCE, Stop date: 10/20/19 10:38:00 DIE ASSEMBLER lidocaine 2020-0 No Route: IV, Me moria (ANES) 2-13 Drug form: l 16:28: INJ, ONCE, Stop date: 10/20/19 10:28:00 DIE ASSEMBLER fentaNYL 2020-0 No Route: IV, Mem oria (ANES) 2-13 Drug form: l 16:28: INJ, ONCE, Stop date: 10/20/19 10:28:00 DIE ASSEMBLER propofol 2020-0 No Route: IV, Mem oria (ANES) 2-13 Drug form: l 16:28: INJ, ONCE, Stop date: 10/20/19 10:28:00 DIE ASSEMBLER rocuronium 2020-0 No Route: IV, M emoria (ANES) 2-13 Drug form: l 16:28: INJ, ONCE, Stop date: 10/20/19 10:28:00 DIE ASSEMBLER Sodium 2020-0 No Route: IV, Memor ia Chloride 2-13 Drug form: l 0.9% IV 15:36: INJ, Start Romain jules (ANES) 100 00 date: mL + 10/20/19 Cleocin 9:36:00 Phosphate DIE ASSEMBLER, Stop (ANES) 900 date: mg 10/20/19 10:36:00 DIE ASSEMBLER Sodium 2020-0 No Route: IV, Memor ia Chloride 2-13 Total l 0.9% IV 15:36: Volume: Nelson (ANES) 500 00 500, Start mL date: 10/20/19 9:36:00 DIE ASSEMBLER, Stop date: 10/20/19 10:36:00 DIE ASSEMBLER Calcium 2020-0 No 1,000 mL, Memor ia Chloride 2-13 Rate: 75 l 0.0014 13:57: ml/hr, Nelson MEQ/ML / 00 Infuse Potassium over: 13.3 Chloride hr, Route: 0.004 IV, Dosing MEQ/ML / Weight Sodium 132.545 Chloride kg, Total 0.103 Volume: MEQ/ML / 1,000, Sodium Start Lactate date: 0.028 10/20/19 MEQ/ML 7:57:00 Injectable DIE ASSEMBLER, Solution Duration: 1 day, Stop date: 10/21/19 7:56:00 DIE ASSEMBLER, 2.45, m2, 0 spironolact 2020-0 Yes 25 mg = 1 M emoria one 25 mg 2-10 tab, PO, 0 l oral tablet 18:17: Refill(s) H ermann 00 allopurinol 2020-0 Yes 100 mg = 1 Memoria 100 mg oral 2-10 tab, PO, l tablet 18:16: Daily, # [place] 00 90 tab, 1 Refill(s) Lasix 2020-0 Yes BID, 0 Memoria 2-10 Refill(s) l 18:15: Nelson 00 apixaban 2020-0 Yes 2.5 mg, Memori a 2.5 MG Oral 2-10 PO, Q12H, l Tablet 18:14: 0 Nelson [Eliquis] 00 Refill(s) AMIODarone 2020-0 Yes 200 mg = 1 M emoria 200 mg oral 2-10 tab, PO, l tablet 18:13: Daily, # [place] 00 90 tab, 3 Refill(s) ferrous 2020-0 Yes 975 mg = 3 Baldo hong sulfate 325 2-10 tab, PO, l mg oral 18:12: Daily, 0 Guru n enteric 00 Refill(s) coated tablet Vitamin D3 2020-0 Yes 3000IU, Baldo hong 2-10 PO, Daily, l 18:11: 0 [place] 00 Refill(s) atorvastati 2020-0 Yes 20 mg = 1 M emoria n 20 mg 2-10 tab, PO, l oral tablet 18:10: Bedtime, # Nelson 00 30 tab, 0 Refill(s) Novolin N 2020-0 Yes SUB-Q, Memori a 2-10 BID, 0 l 18:09: Refill(s) [place] 00 3 ML 2020-0 Yes 1.8 mg, Memoria liraglutide 2-10 SUB-Q, l 6 MG/ML 18:08: Daily, # 9 Herm jules Prefilled 00 mL, 1 Syringe Refill(s) [Victoza] Robitussin 2019- Yes 200 mg =, Me moria 2-10 PO, Q4H, 0 l 18:05: Refill(s) [place] 00 carvedilol 2019-0 Yes 12.5 mg = Me moria 12.5 mg 2-10 1 tab, PO, l oral tablet 18:05: 0 Guru n 00 Refill(s) Clindamycin 2019- No 900 mg, 50 Memoria 2-10 mL, Route: l 18:00: IVPB, Drug form: INJ, PRE OP, kg, Start date: 10/17/19 12:00:00 DIE ASSEMBLER, Duration: 1 day, Stop date: 10/18/19 11:59:00 DIE ASSEMBLER, ABX Indication : Surgical Prophylaxi s, 0 Vancomycin 2019-0 No 2001 mg: Me moria 2-10 infuse l 18:00: over 2.5 00 hours For adult patients only: Round to nearest 250 mg per Medical Staff approval MEDICATION WASTE Product Size: 1000 mg Product Wasted: ___ mg nystatin 2018- Yes Candidiasis Apply M D (MYCOSTATIN 9-26 of skin topically Anderso ) 100,000 00:00: to n units/g 00 affected powder area(s) twice daily. carvedilol Yes 25mg Take 25 mg M D (COREG) 25 9-25 by mouth Cheko so mg tablet 20:41: twice n 40 daily. furosemide Yes 40mg Take 40 mg M D (LASIX) 40 9-25 by mouth Cheko so mg tablet 20:41: twice n 40 daily. 40mg in AM, 20mg in PM daily INSULIN NPH Yes 45U Inject 45 M D HUMAN 9-25 Units Anderso ISOPHANE 20:41: under the n (NOVOLIN N 40 skin twice SUBCUTANEOU daily. 45 S) units in AM and 40 units at bedtime LIRAGLUTIDE Yes 1.8mg Inject 1.8 MD (VICTOZA 9-25 mg under Anderso 2-TRENA 20:41: the skin n SUBCUTANEOU 40 daily. S) cholecalcif 2018- Yes 2000U Take 2,000 MD stefania, 9-25 Units by Anderso vitamin D3, 20:41: mouth n (VITAMIN 40 daily. D3) 2,000 units tab tablet apixaban Yes 2.5mg Take 2.5 MD (ELIQUIS) 9-25 mg by Anderso 2.5 mg 20:41: mouth n tablet 40 twice daily. cloNIDine 2019 Yes .2mg Take 0.2 MD HCl 9-25 mg by Anderso (CATAPRES) 20:41: mouth n 0.2 mg 40 twice tablet daily. ferrous Yes 37mg Take 37 mg MD gluconate 9-25 by mouth Rg o (FERGON) 20:41: daily with n 325 mg 40 breakfast. tablet atorvastati Yes 20mg Take 20 mg MD n (LIPITOR) 9-25 by mouth Mike rso 20 mg 20:41: daily. n tablet 40 allopurinol Yes 100mg Take 100 M D (ZYLOPRIM) 9-25 mg by Anderso 100 mg 20:41: mouth n tablet 40 daily. amiodarone Yes 200mg Take 200 MD (PACERONE) 9-25 mg by Anderso 200 mg 20:41: mouth n tablet 40 daily. fluticasone Yes 1{spray Inhale 1 MD (FLONASE) 9-25 } spray into Mike rso 50 20:41: each n mcg/spray 40 nostril nasal spray daily. loratadine Yes 10mg Take 10 mg M D (CLARITIN) 9-25 by mouth Cheko so 10 mg 20:41: daily. n tablet 40 spironolact Yes 1{tbl} Take 1 MD one 2-07 tablet by Anderso (ALDACTONE) 00:00: mouth 3 n 25 mg 00 (three) tablet times a week Thursday, Thursday and Thursday. Vital Signs Vital Name Observation Time Observation Value Comments Source Temperature Oral (F) 2020-01-27 12:47:00 98.1 F [facility] Heart Rate 2020-01-27 12:47:00 [facility] Respitory Rate 2020-01-27 12:47:00 Lu oliver Nelson Systolic (mm Hg) 2020-01-27 12:47:00 Baldo rial Nelson Diastolic (mm Hg) 2020-01-27 12:47:00 Mem orial Nelson Temperature Oral (F) 2020-01-27 09:00:00 98.2 F [facility] Heart Rate 2020-01-27 09:00:00 [facility] [place] Respitory Rate 2020-01-27 09:00:00 Memori al [place] Systolic (mm Hg) 2020-01-27 09:00:00 Baldo rial [place] Diastolic (mm Hg) 2020-01-27 09:00:00 Mem orial Nelson Temperature Oral (F) 2020-01-27 05:00:00 98.0 F [facility] Heart Rate 2020-01-27 05:00:00 [facility] [place] Respitory Rate 2020-01-27 05:00:00 Memori al [place] Systolic (mm Hg) 2020-01-27 05:00:00 Baldo rial [place] Diastolic (mm Hg) 2020-01-27 05:00:00 Mem orial Nelson Height 2020-01-26 14:43:00 154.94 cm [facility] [place] BMI Calculated 2020-01-26 14:43:00 Memori al Nelson Weight 2020-01-26 14:43:00 [facility] [place] Systolic (mm Hg) 2019-10-20 18:30:00 Baldo rial [place] Diastolic (mm Hg) 2019-10-20 18:30:00 Mem orial [place] Systolic (mm Hg) 2019-10-20 18:15:00 Baldo rial Nelson Diastolic (mm Hg) 2019-10-20 18:15:00 Mem orial [place] Systolic (mm Hg) 2019-10-20 18:00:00 Baldo rial Nelson Diastolic (mm Hg) 2019-10-20 18:00:00 Mem orial [place] Respitory Rate 2019-10-20 17:45:00 Memori al [place] Respitory Rate 2019-10-20 17:30:00 Memori al [place] Respitory Rate 2019-10-20 17:15:00 Memori al [place] Heart Rate 2019-10-20 17:05:00 [facility] [place] Height 2019-10-17 18:21:00 156.21 cm [facility] [place] Weight 2019-10-17 18:21:00 [facility] [place] BMI Calculated 2019-10-17 18:21:00 Memori al [place] Procedures Procedure Date / Time Performed Performing Clinician [facility] Bilateral tubal ligation Memoria l [place] Hysterectomy [facility] [place] Encounters Start End Encounter Admission Attending Care Care Encounter Source Date/Time Date/Time Type Type Clinicians Facility Department ID 2020-01-24 Outpatient [id number] [facility] 2020-06-15 2020-06-15 Outpatient SAEED HIDALGO MDA MDA [id number] 00:00:00 00:00:00 OSVALDO quevedo 2020-01-26 2020-01-27 Outpatient Movva, MHSE MHSE [id number] 09:39:48 12:48:00 Eligio 02 2020-01-27 2020-01-27 Outpatient E MHSE MED [id number] MH 08:12:00 08:12:[address] [facility] 2019-10-20 2019-10-20 Outpatient John, MHSE MHSE [id number] 05:20:00 12:48:00 Fabian 00 Pankaj 2019-10-20 2019-10-20 Outpatient MHSE MHSE [id number] MH 05:20:00 05:20:[address] [facility] [facility] Results Test Description Test Time Test Comments Results Result Comments Source CHEM PANEL 2020-01-27 104 [facility] 10:38:00 CHEM PANEL 2020-01-27 53 [facility] 10:38:00 CHEM PANEL 2020-01-27 2.21 [facility] 10:38:00 CHEM PANEL 2020-01-27 142 [facility] 10:38:00 CHEM PANEL 2020-01-27 4.0 [facility] 10:38:00 CHEM PANEL 2020-01-27 108 [facility] 10:38:00 CHEM PANEL 2020-01-27 28 [facility] 10:38:00 CHEM PANEL 2020-01-27 9.6 [facility] 10:38:00 CHEM PANEL 2020-01-27 10.0 [facility] 10:38:00 CHEM PANEL 2020-01-27 22 [facility] 10:38:00 HEMATOLOGY 2020-01-27 69.1 [facility] 10:38:00 HEMATOLOGY 2020-01-27 10.0 [facility] 10:38:00 HEMATOLOGY 2020-01-27 15.7 [facility] 10:38:00 HEMATOLOGY 2020-01-27 4.2 [facility] 10:38:00 HEMATOLOGY 2020-01-27 1.0 [facility] 10:38:00 HEMATOLOGY 2020-01-27 6.1 [facility] 10:38:00 HEMATOLOGY 2020-01-27 0.9 [facility] 10:38:00 HEMATOLOGY 2020-01-27 1.4 [facility] 10:38:00 HEMATOLOGY 2020-01-27 0.4 [facility] 10:38:00 HEMATOLOGY 2020-01-27 0.1 [facility] 10:38:00 HEMATOLOGY 2020-01-27 8.9 [facility] 10:38:00 HEMATOLOGY 2020-01-27 3.87 [facility] 10:38:00 HEMATOLOGY 2020-01-27 11.0 [facility] 10:38:00 HEMATOLOGY 2020-01-27 35.0 [facility] 10:38:00 HEMATOLOGY 2020-01-27 90.4 [facility] 10:38:00 HEMATOLOGY 2020-01-27 10:38:00 Test Item Value Reference Range Interpretation Comme nts MCH (test code = MCH) 28.5 pg 27.0-31.0 [facility] [id number] 10:38:0031.5[facility] 2020-01-27 10:38:0016.3[facility] [id number] 10:38:80532Pzyqkcsr [id number] 10:38:008.8[facility] [id number] 16:25:00Clear (01/26/20 11:25 AM)[facility] [id number] 16:25:00 Test Item Value Reference Range Interpretation Comments UA Spec Grav (test code = UA Spec 1.011 1 Grav) [facility] [id number] 16:25:00 Test Item Value Reference Range Interpretation Comments UA pH (test code = UA pH) 6.0 1 5.0-8.0 [facility] [id number] 16:25:00Negative *NA*(01/26/20 11:25 AM)[facility] [id number] 16:25:00Negative (01/26/20 11:25 AM) [facility] [id number] 16:25:00Negative (01/26/20 11:25 AM) [facility] [id number] 16:25:00Small *ABN*(01/26/20 11:25 AM) [facility] [id number] 16:25:008[facility] [id number] 16:25:001[facility] [id number] 16:25:004 [facility]annCARDIAC [id number] 15:17:46581Spsnndtu HermannCARDIAC [id number] 15:17:000.03[facility] HermannCHEM [id number] 15:17:93143 [facility]annCHEM [id number] 15:17:0055[facility]annCHEM PANEL 2020-01-26 15:17:002.47[facility]annCHEM [id number] 15:17:29591Dkirdizf HermannCHEM [id number] 15:17:004.6[facility]annCHEM [id number] 15:17:50764Bbkuakss HermannCHEM [id number] 15:17:0029[facility]annCHEM [id number] 15:17:009.6[facility]annCHEM [id number] 15:17:009.6 [facility]annCHEM [id number] 15:17:0020[facility] HermannCHEM PANEL 2020-01-26 15:17:002.4[facility] HermannCHEM [id number] 15:17:003.7[facility] HermannCHEM [id number] 15:17:007.1[facility]annCHEM [id number] 15:17:003.0[facility]annCHEM [id number] 15:17:0028[facility]annCHEM [id number] 15:17:0029[facility]annCHEM [id number] 15:17:0094 [facility]annCHEM [id number] 15:17:000.4[facility] HermannCHEM PANEL 2020-01-26 15:17:00<0.1[facility]annCHEM [id number] 15:17:004.1 [facility]annCHEM [id number] 15:17:00 Test Item Value Reference Range Interpretation Comments A/G Ratio (test code = A/G Ratio) 0.7 1 0.7-1.6 [facility] [id number] 15:17:00>0.3[facility]annHEMATOLOGY 2020-01-26 15:17:009.7[facility] XzhyfbwQWVDKASEEL3473-21-21 15:17:003.92[facility] NrshtfzKWAVFUCQVE9212-30-87 15:17:0011.4[facility] WykbmavSNASBZVGVH5442-90-52 15:17:0035.0[facility] PoxigmnGZWRGTWGSG7528-14-07 15:17:0089.3[facility] CEPXSUGCCQ6403-67-18 15:17:00 Test Item Value Reference Range Interpretation Comments MCH (test code = MCH) 29.1 pg 27.0-31.0 [facility] AszweteICXBNJMBWT9821-43-32 15:17:0032.6[facility]ann[facility]MATOLOGY 2020-01-26 15:17:0016.2[facility] CokdubvZZEBCMUCYT9317-43-78 15:17:93572Fnsvrfou RzqvwyfUNLMRYBRQT2900-85-08 15:17:009.0[facility] IwrstmrJRRYCSIAQC4497-46-95 15:17:00 Test Item Value Reference Range Interpretation Comments PTT (test code = PTT) 29.5 s 22.9-35.8 [facility] ZiqhktoFWAZPDBVRV5819-65-44 15:17:00 Test Item Value Reference Range Interpretation Comments PT (test code = PT) 15.8 s 12.0-14.7 [facility] OcsoakcTNZLAACDUK0977-41-39 15:17:00 Test Item Value Reference Range Interpretation Comments INR (test code = INR) 1.25 1 0.85-1.17 [facility] ShigyixHHBJIFQLUE0056-00-06 15:17:0071.4[facility]annHEMATOLOGY 2020-01-26 15:17:0010.1[facility] CwzmghnHQZRWZHEKH6479-61-35 15:17:0013.7[facility] OhsjqboIFENBEKHGF9909-66-30 15:17:003.8[facility] YyayeerITTHEUGINY8745-23-91 15:17:001.0[facility] SymbwhjNCBKJMSZBA6147-74-54 15:17:006.9[facility] [place] LPMRZLPQVG3649-08-09 15:17:001.0[facility] DpigzilJGAPTZXBRR1117-44-15 15:17:001.3 [facility] HsitycfHWOBJKXDXJ3479-00-62 15:17:000.4[facility]annHEMATOLOGY 2020-01-26 15:17:000.1[facility] ZbsflzuYVTJHMFRSMKN0303-74-53 12:35:004.1[facility]annBLOOD BANK AWULSAQ3474-28-05 19:09:00Negative (10/17/19 1:09 PM)[facility]annCHEM DSRVC4086-28-51 19:09:40956[facility] HermannCHEM DWKBU3060-75-24 19:09:0051[facility]annCHE[facility] AIWXX8019-92-00 19:09:002.62[facility]annCHEM HIRLS5170-04-27 19:09:74513Almqgies HermannCHEM AYDQX0062-27-50 19:09:004.6 [facility] UDMOM7441-63-77 19:09:78062Gqrmqahk HermannCHEM PANEL 2019-10-17 19:09:0030[facility]annCHE[facility] ABZOT0018-90-70 19:09:009.4[facility]annCHE[facility] CJPYT0572-71-59 19:09:008.6[facility]annCHEM GDLMP2985-95-90 19:09:0018[facility] PmahynlUMCPOJSYCE5906-33-98 19:09:0073.1[facility] [place] WWOMPQYSGC2346-17-83 19:09:009.9[facility] XgvirktJNXPLDHXUT0328-12-10 19:09:00 13.3[facility] YpmdfraRXHTQFGSIS0456-71-52 19:09:002.7[facility]annHEMATOLOGY 2019-10-17 19:09:001.0[facility] OiugsuhFSIDSLJOSR0787-73-41 19:09:005.7[facility] RblfuyuNQYNQKFZYI0928-43-80 19:09:000.8[facility] FcynhobQNSOXXMAMY7179-20-07 19:09:001.0[facility] TwjjwrnCREOXSEAYG3387-00-50 19:09:000.2[facility] [place] XHFBAPFHVU5565-42-46 19:09:000.1[facility] XbjrzdsOOGQTAGUAV1411-98-42 19:09:007.8 [facility] CliwilbSBIWGPCPIJ7800-13-69 19:09:003.79[facility]annHEMATOLOGY 2019-10-17 19:09:0011.3[facility] PdjstkyCWWESRCVXI6810-31-67 19:09:0035.1[facility] YvlprssDQFJBYUBZC8977-15-66 19:09:0092.6[facility] PcdyubzTPOUWKCQPK4274-03-80 19:09:00 Test Item Value Reference Range Interpretation Comments MCH (test code = MCH) 29.8 pg 27.0-31.0 [facility] NnidbedAAYLCHMLWX2551-35-07 19:09:0032.1[facility]annHEMATOLOGY 2019-10-17 19:09:0016.9[facility] ChkjvwcSCYDBULSEQ4093-01-32 19:09:81843Zkizoatc YpuqhoqPVJCOAJJAB5667-91-86 19:09:008.5[facility] VhwfaqgERKVFRIQZI1348-57-67 19:09:00 Test Item Value Reference Range Interpretation Comments PT (test code = PT) 15.2 s 12.0-14.7 [facility] DyoxvjfREYPFSBPZF6456-66-46 19:09:00 Test Item Value Reference Range Interpretation Comments INR (test code = INR) 1.19 1 0.85-1.17 [facility] JmwxjukNFMYDFJGKU7492-57-06 19:09:00 Test Item Value Reference Range Interpretation Comments PTT (test code = PTT) 26.4 s 22.9-35.8 [facility]annSPECIAL ITEAMDFNC2903-08-51 19:09:007.9[facility] [place]
[2020-06-22 17:30] LABS: Absolute Lymphocytes (CBC) 0.7 K/uL (0.7-4.9); Basophils % 0.8 % (0-1.3); Hematocrit 33.5 % (36.0-45.0); Lymphocytes % 7.7 % (15.3-44.8); MPV 8.8 fL (7.6-11.3); RBC Red Blood Cell Count 3.86 M/uL (3.86-4.86)
[2020-06-22 17:31] LABS: Protime INR 1.16
--- NOTE | 2020-06-22 17:38 | RAD REPORT ---
EXAM DESCRIPTION: RAD - Chest Single View - 06/22/2020 5:30 pm CLINICAL HISTORY: DYSPNEA Chest pain. COMPARISON: Chest Single View dated 07/03/2018; Chest Pa And Lat (2 Views) dated 05/02/2016; CHEST SI NGLE VIEW dated 12/27/2011 FINDINGS: Portable technique limits examination quality. Mild interstitial pulmonary edema is seen. The heart is mildly enlarged in size. No displaced fractur es. IMPRESSION: Mild CHF.
[2020-06-22 17:48] LABS: ALT/SGPT 42 U/L (12-78); AST/SGOT 42 U/L (15-37); Albumin 3.1 g/dL (3.4-5.0); Alkaline Phosphatase 130 U/L (45-117); BUN Blood Urea Nitrogen 69 mg/dL (7-18); Bicarbonate 30 mmol/L (21-32); Bilirubin Direct 0.1 mg/dL (0-0.2); Bilirubin Total 0.3 mg/dL (0.2-1.0); Glucose Level 185 mg/dL (74-106); Magnesium 2.7 mg/dL (1.8-2.4); NT PRO-BNP 1817 pg/mL (<125); Potassium 4.9 mmol/L (3.5-5.1); Sodium Level 142 mmol/L (136-145); Troponin (Emerg Dept Use Only) < 0.02 ng/mL (0.0-0.045)
--- NOTE | 2020-06-22 18:33 | ER ---
Nurse's Notes [facility] Name: Nhung Munson Age: 69 yrs Sex: Female : 1950 Arrival Date: 06/22/2020 Time: 16:50 Bed 8 Private MD: Diagnosis: Chest pain, unspecified;Syncope and collapse Presentation: 06/22 16:57 Chief complaint: EMS states: SYNCOPAL EPISODE WHILE HAVING "STRESSFUL PHONE CALL WITH bp SON IN [facility]". Coronavirus screen: At this time, the client does not indicate any symptoms associated with coronavirus-19. Ebola Screen: No symptoms or risks identified at this time. Initial Sepsis Screen: Does the patient meet any 2 criteria? No. Patient's initial sepsis screen is negative. Does the patient have a suspected source of infection? No. Patient's initial sepsis screen is negative. Risk Assessment: Do you want to hurt yourself or someone else? Patient reports no desire to harm self or others. Onset of symptoms was June 22, 2020 at 16:00. 16:57 Method Of Arrival: EMS: [facility] bp 16:57 Acuity: BACILIO 3 bp 16:57 Care prior to arrival: Glucose check: 190. bp Triage Assessment: 16:59 General: Appears in no apparent distress. uncomfortable, obese, Behavior is bp cooperative, appropriate for age, anxious. Pain: Denies pain. EENT: No deficits noted. Neuro: Level of Consciousness is awake, alert, obeys commands, Oriented to person, place, time, situation, Appropriate for age Reports a syncopal episode. Cardiovascular: No deficits noted. Respiratory: Breath sounds are coarse bilaterally. GI: No signs and/or symptoms were reported involving the gastrointestinal system. : No signs and/or symptoms were reported regarding the genitourinary system. Derm: No deficits noted. Musculoskeletal: No deficits noted. Historical: - Allergies: 16:59 Amoxicillin; bp 16:59 Bactrim DS; bp 16:59 Demerol; bp - Home Meds: 16:59 carvedilol 25 mg Oral tab 1 tab TID [Active]; Novolin N 100 unit/mL Sub-Q susp 65 units bp nightly [Active]; Novolin N 100 unit/mL Sub-Q susp 60 units DAILY AM [Active]; Amiodarone Oral [Active]; Eliquis oral oral [Active]; - PMHx: 16:59 Atrial Fib; Diabetes - IDDM; High Cholesterol; Hypertension; bp - Immunization history:: Adult Immunizations unknown. - Social history:: Smoking status: unknown. Screenin:01 Abuse screen: Denies threats or abuse. Denies injuries from another. Nutritional bp screening: No deficits noted. Tuberculosis screening: No symptoms or risk factors identified. Fall Risk None identified. Assessment: 17:01 General: SEE TRIAGE NOTE. bp 17:50 Reassessment: Patient appears in no apparent distress at this time. No changes from tw2 previously documented assessment. Patient and/or family updated on plan of care and expected duration. Pain level reassessed. Patient is alert, oriented x 3, equal unlabored respirations, skin warm/dry/pink. 18:50 Reassessment: Patient appears in no apparent distress at this time. No changes from bp previously documented assessment. ADMIT INITIATED. 18:57 Reassessment: ADMIT PROMOTIONAL REPRESENTATIVE AT B/S. VS STABLE ON MONITOR. bp 19:14 Reassessment: ROLANDO-hospitalist came and saw the patient. mg2 Vital Signs: 16:57 BP 165 / 60; Pulse 55; Resp 16; Temp 98.3; Pulse Ox 97% ; bp 17:50 BP 175 / 59; Pulse 62; Resp 15; Pulse Ox 99% on R/A; tw2 18:48 BP 150 / 66; Pulse 73; Resp 19; Pulse Ox 100% ; bp 19:47 BP 148 / 73; Pulse 71; Resp 18; Pulse Ox 98% on R/A; mg2 ED Course: 16:50 Patient arrived in ED. ss 16:57 Florentino Sandoval, RN is Primary Nurse. bp 16:58 Triage completed. bp 17:01 Arm band placed on. bp 17:01 Patient has correct armband on for positive identification. Bed in low position. Call bp light in reach. Side rails up X2. 17:02 Adelaide Almendarez [facility]-C [facility] kb 17:02 Artem Yeh MD is Attending Physician. kb 17:21 Inserted saline lock: 20 gauge in right antecubital area, using aseptic technique. bp Blood collected. 17:31 XRAY Chest (1 view) In Process Unspecified. EDMS 18:30 Attema, Rolando, PAINTER HELPER SIGN-C is Hospitalizing Provider. kb 18:40 CT Head Brain wo Cont In Process Unspecified. EDMS 18:47 Boston Almieda MD is Hospitalizing Provider. kb 19:01 Report given to Emily,RN and JAZMYN Arauz. tw2 19:14 No provider procedures requiring assistance completed. Patient admitted, IV remains in mg2 place. 20:15 covid swab sent to lab. mg2 20:16 Door closed. Warm blanket given. Assisted to bedside commode. mg2 Administered Medications: 18:30 Drug: Lasix 40 mg Route: IVP; Site: right antecubital; bp 18:51 Follow up: Response: No adverse reaction bp Outcome: 18:32 Decision to Hospitalize by Provider. kb 20:31 Admitted to Med/surg accompanied by tech, via wheelchair, room 203, with chart, Report mg2 called to JAZMYN Mendes 20:31 Condition: stable 20:31 Instructed on the need for admit, Demonstrated understanding of instructions. 20:36 Patient left the ED. mg2 Signatures: Dispatcher [employer] EDMS Adelaide Almendarez, CRISTIAN-Adrian NELSONP-Kristin Mg, RN RN ss Becky Cardoso, RN RN tw2 Florentino Sandoval, RN RN bp Shelton Jarrell, RN RN mg2 Corrections: (The following items were deleted from the chart) 18:51 18:50 Reassessment: Patient appears in no apparent distress at this time. No changes bp from previously documented assessment. B/S COMMODE IN ROOM AFTER LASIX ADMIN bp
--- NOTE | 2020-06-22 18:33 | EDPHYS ---
Physician Documentation [facility] Name: Nhung Munson Age: 69 yrs Sex: Female : 1950 Arrival Date: 06/22/2020 Time: 16:50 Bed 8 Private MD: ED Physician Artem Yeh HPI: 06/22 19:23 This 69 yrs old Female presents to ER via EMS with complaints of Syncope. kb 19:23 The patient has experienced syncope, became unresponsive. Onset: The symptoms/episode kb began/occurred just prior to arrival. Duration: This was a single episode, that lasted an unknown period of time. Context: the episode(s) was witnessed, by a significant other, , occurred at home, occurred while the patient was lying down, Just prior to the episode the patient experienced no apparent symptoms. Associated injury: The patient did not suffer any apparent associated injury. Associated signs and symptoms: Pertinent positives: shortness of breath. Current symptoms: Currently, the patient is not experiencing any symptoms, the patient feels back to baseline, no decreased level of consciousness. The patient has not experienced similar symptoms in the past. The patient has not recently seen a physician. Pt reports she was sitting in bed talking to son on the phone and passed out. States she was relaying information from her son's metal wire technician to him [place] he is in [place] so it was a stressful phone call. reports pt was unresponsive and wasn't breathing so he started CPR. STates he didn't check a pulse because he doesn't know how. Pt states she passed out and the next thing she remembers are the profile grinder technician next to her bed. Pt reports chest pressure over the last few days and she has been waking up in the middle of the night short of breath. States she feels pretty good right now. Historical: - Allergies: 16:59 Amoxicillin; bp 16:59 Bactrim DS; bp 16:59 Demerol; bp - Home Meds: 16:59 carvedilol 25 mg Oral tab 1 tab TID [Active]; Novolin N 100 unit/mL Sub-Q susp 65 units bp nightly [Active]; Novolin N 100 unit/mL Sub-Q susp 60 units DAILY AM [Active]; Amiodarone Oral [Active]; Eliquis oral oral [Active]; - PMHx: 16:59 Atrial Fib; Diabetes - IDDM; High Cholesterol; Hypertension; bp - Immunization history:: Adult Immunizations unknown. - Social history:: Smoking status: unknown. ROS: 19:22 Constitutional: Negative for fever, chills, and weight loss, Abdomen/GI: Negative for kb abdominal pain, nausea, vomiting, diarrhea, and constipation, Back: Negative for injury and pain, MS/Extremity: Negative for injury and deformity, Skin: Negative for injury, rash, and discoloration. 19:22 Cardiovascular: Positive for chest pain, orthopnea, Negative for edema, palpitations, paroxysmal nocturnal dyspnea. 19:22 Respiratory: Positive for orthopnea, shortness of breath, Negative for cough, dyspnea on exertion, hemoptysis, pleurisy, sputum production, wheezing. 19:22 Neuro: Positive for syncope. Exam: 19:22 Constitutional: This is a well developed, well nourished patient who is awake, alert, kb and in no acute distress. Head/Face: Normocephalic, atraumatic. Eyes: Pupils equal round and reactive to light, extra-ocular motions intact. Lids and lashes normal. Conjunctiva and sclera are non-icteric and not injected. Cornea within normal limits. Periorbital areas with no swelling, redness, or edema. Chest/axilla: Normal chest wall appearance and motion. Nontender with no deformity. No lesions are appreciated. Cardiovascular: Regular rate and rhythm with a normal S1 and S2. No gallops, murmurs, or rubs. Normal PMI, no JVD. No pulse deficits. Respiratory: Lungs have equal breath sounds bilaterally, clear to auscultation and percussion. No rales, rhonchi or wheezes noted. No increased work of breathing, no retractions or nasal flaring. Abdomen/GI: Soft, non-tender, with normal bowel sounds. No distension or tympany. No guarding or rebound. No evidence of tenderness throughout. Skin: Warm, dry with normal turgor. Normal color with no rashes, no lesions, and no evidence of cellulitis. MS/ Extremity: Pulses equal, no cyanosis. Neurovascular intact. Full, normal range of motion. Neuro: Awake and alert, GCS 15, oriented to person, place, time, and situation. Cranial nerves II-XII grossly intact. Motor strength 5/5 in all extremities. Sensory grossly intact. Cerebellar exam normal. Normal gait. Vital Signs: 16:57 BP 165 / 60; Pulse 55; Resp 16; Temp 98.3; Pulse Ox 97% ; bp 17:50 BP 175 / 59; Pulse 62; Resp 15; Pulse Ox 99% on R/A; tw2 18:48 BP 150 / 66; Pulse 73; Resp 19; Pulse Ox 100% ; bp 19:47 BP 148 / 73; Pulse 71; Resp 18; Pulse Ox 98% on R/A; mg2 MDM: 17:02 Patient medically screened. kb 18:47 Data reviewed: vital signs, nurses notes. Data interpreted: Pulse oximetry: on room air kb is 99 %. Interpretation: normal. Counseling: I had a detailed discussion with the patient and/or guardian regarding: the historical points, exam findings, and any diagnostic results supporting the discharge/admit diagnosis, lab results, radiology results, the need for further work-up and treatment in the hospital. Physician consultation: Rolando POWERS was contacted at 18:48, regarding admission, to the telemetry unit. consult, patient's condition, in the emergency department to see patient at 18:50. 06/22 17:06 Order name: Basic Metabolic Panel; Complete Time: 17:57 kb 06/22 17:06 Order name: CBC with Diff; Complete Time: 17:47 kb 06/22 17:06 Order name: LFT's; Complete Time: 17:57 kb 06/22 17:06 Order name: Magnesium; Complete Time: 17:57 kb 06/22 17:06 Order name: NT PRO-BNP; Complete Time: 17:57 kb 06/22 17:06 Order name: PT-INR; Complete Time: 17:47 kb 06/22 17:06 Order name: Troponin (emerg Dept Use Only); Complete Time: 17:57 kb 06/22 17:06 Order name: XRAY Chest (1 view); Complete Time: 17:47 kb 06/22 17:06 Order name: EKG; Complete Time: 17:08 kb 06/22 17:06 Order name: Cardiac monitoring; Complete Time: 17:14 kb 06/22 18:26 Order name: CT Head Brain wo Cont; Complete Time: 19:40 kb 06/22 18:44 Order name: Urine Dipstick--Ancillary (enter results); Complete Time: 19:04 em1 06/22 19:30 Order name: COVID-19 mg2 06/22 17:06 Order name: EKG - Nurse/Tech; Complete Time: 17:14 kb 06/22 17:06 Order name: IV Saline Lock; Complete Time: 17:20 kb 06/22 17:06 Order name: Labs collected and sent; Complete Time: 17:09 kb 06/22 17:06 Order name: O2 Per Protocol; Complete Time: 17:09 kb 06/22 17:06 Order name: O2 Sat Monitoring; Complete Time: 17:09 kb Administered Medications: 18:30 Drug: Lasix 40 mg Route: IVP; Site: right antecubital; bp 18:51 Follow up: Response: No adverse reaction bp Disposition: 06/23 13:31 Co-signature as Attending Physician, Artem Yeh MD I agree with the assessment and kdr plan of care. Disposition: 06/22/20 18:32 Hospitalization ordered by Boston Almeida for Observation. Preliminary diagnosis are Chest pain, unspecified, Syncope and collapse. - Bed requested for Telemetry/MedSurg (observation). - Status is Observation. mg2 - Condition is Stable. - Problem is new. - Symptoms are unchanged. Signatures: Dispatcher [employer] Adelaide Newton FNP-C FNP-Artem Briones MD MD [facility] Heather Abdi RN RN Florentino Sandoval RN RN bp Shelton Jarrell, JAZMYN RN mg2 Corrections: (The following items were deleted from the chart) 06/22 18:47 18:32 Hospitalization Ordered by Rolando POWERS for Observation. Preliminary kb diagnosis is Chest pain, unspecified; Syncope and collapse. Bed requested for Telemetry/MedSurg (observation). Status is Observation. Condition is Stable. Problem is new. Symptoms are unchanged. kb 19:29 19:23 Pt reports she was sitting in bed talking to son on the phone and passed out. kb States she was relaying information from her son's metal wire technician to him while he is in halfway so it was a stressful phone call. reports pt was unresponsive and wasn't breathing so he started CPR. STates he didn't check a pulse because he doesn't know how. Pt states she passed out and the next thing she remembers are the profile grinder technician next to her bed. Pt reports chest pressure over the last few days and she has been waking up in the middle of the night short of breath. kb 19:41 18:47 06/22/2020 18:32 Hospitalization Ordered by Boston Almeida MD for Observation. cg Preliminary diagnosis is Chest pain, unspecified; Syncope and collapse. Bed requested for Telemetry/MedSurg (observation). Status is Observation. Condition is Stable. Problem is new. Symptoms are unchanged. kb 20:36 19:41 06/22/2020 18:32 Hospitalization Ordered by Boston Almeida MD for Observation. mg2 Preliminary diagnosis is Chest pain, unspecified; Syncope and collapse. Bed requested for Telemetry/MedSurg (observation). Status is Observation. Condition is Stable. Problem is new. Symptoms are unchanged. cg
[2020-06-22] MEDS ORDERED: FUROSEMIDE 40 MG/4 ML VIAL ONE (18:41)
[2020-06-22 18:54] LABS: Urine Blood NEGATIVE (NEG); Urine Glucose NEGATIVE (NEG); Urine Protein NEGATIVE (NEG)
--- NOTE | 2020-06-22 19:29 | P.HP ---
Certification for Inpatient Patient admitted to: Observation With expected LOS: <2 Midnights Patient will require the following post-hospital care: None Practitioner: I am a practitioner with admitting privileges, knowledge of patient current condition, hospital course, and medical plan of care. Services: Services provided to patient in accordance with Admission requirements found in Title 42 Section 412.3 of the Code of Federal Regulations Patient History Date of Service: 06/22/20 Primary Care Provider: Dr. Munoz, Cardiology: Dr. Zafar Reason for admission: Syncope History of Present Illness: 69-year-old female with history of atrial fibrillation on chronic anticoagulation therapy, diabetes mellitus type 2, chronic diastolic congestive heart failure, chronic kidney disease stage 4 presents emergency department for syncope. Patient reports that she was having an emotional phone call with her son while lying in bed with her at her side when she reported losing consciousness. reports that her eyes rolled back in her head and she is unresponsive for between 5-10 min. reports performing chest compressions for period of time but never checked her pulse. EMS was called to transport patient to hospital. Upon arrival patient was awake, alert, oriented x3 with stable vital signs. Workup in the ED revealed patient with CKD stage 4, creatinine 3.23, GFR 14, BUN 69. BNP elevated at 1817. Patient does appear mildly overloaded, chest x-ray significant for mild pulmonary edema. CT head without acute findings. ED provider wishes to admit patient for further evaluation and management. The patient sees cardiology and [place], reports last stress test/echocardiogram was probably approximately 2 years ago. Results unavailable. Echocardiogram 2016 shows ejection fraction 67%. Allergies amoxicillin [Amoxicillin] Allergy (Intermediate, Verified 12/27/11 05:36) Hives/Rash sulfamethoxazole [From Bactrim] Allergy (Intermediate, Verified 12/27/11 05:36) Hives/Rash trimethoprim [From Bactrim] Allergy (Intermediate, Verified 12/27/11 05:36) Hives/Rash Home Medications: Allopurinol 100 mg PO DAILY 09/06/19 Amiodarone HCl [Pacerone] 200 mg PO DAILY 09/06/19 Apixaban [Eliquis *] 2.5 mg PO BID 09/06/19 Atorvastatin Calcium [Lipitor*] 20 mg PO BEDTIME 09/06/19 Cholecalciferol (Vitamin D3) [Vitamin D 1000 Iu Tab*] 3,000 unit PO DAILY 09/06/19 Clonidine HCl [Catapres*] 0.2 mg PO BID 09/06/19 Ferrous Gluconate [Iron] 236 mg PO TID 09/06/19 Fluticasone [Flonase 50MCG Nasal Stanton*] 2 sprays NS DAILY 09/06/19 Furosemide [Lasix*] 1 tab PO DAILY 6PM 09/06/19 Furosemide [Lasix*] 2 tab PO DAILY 09/06/19 Insulin NPH Human Isophane [Novolin N] 43 unit SQ DAILY AT SUPPER 09/06/19 Insulin NPH Human Isophane [Novolin N] 45 unit SQ DAILY 09/06/19 Liraglutide [Victoza 2-Meir] 1.8 mg SQ DAILY 09/06/19 Loratadine [Claritin*] 10 mg PO BEDTIME 09/06/19 Spironolactone [Aldactone*] 25 mg PO M,W,F 09/06/19 Minocycline HCl 100 mg PO BID #14 capsule 09/08/19 Mupirocin Oint [Bactroban 2% Ointment] 22 appl TOP BID #1 tube 09/08/19 clindamycin HCL [Cleocin HCl *] 150 mg PO Q8H #21 cap 09/08/19 - Past Medical/Surgical History Diabetic: Yes -: Diabetes mellitus type 2-insulin dependent -: Hypertension -: It over relation on chronic anticoagulation therapy -: Obesity -: Hyperlipidemia -: Chronic renal disease stage IV -: Hemorrhoids -: Degenerative joint disease of the hip -: Chronic diastolic congestive heart failure -: Tubal ligation -: Hysterectomy Psychosocial/ Personal History: She is of 49 years, has 4 children, she does not work, lives at home with her . - Social History Smoking Status: Never smoker Alcohol use: No CD- Drugs: No Caffeine use: Yes Place of Residence: Home Review of Systems 10-point ROS is otherwise unremarkable Respiratory: Shortness of Breath, SOB with Excertion Cardiovascular: Orthopnea Physical Examination - Physical Exam General: Alert, In no apparent distress, Oriented x3 HEENT: Atraumatic, Normocephalic, PERRLA Neck: Supple Respiratory: Normal air movement, Diminished Cardiovascular: Regular rate/rhythm, Normal S1 S2, Edema (1+ pitting edema bilateral lower extremities) Capillary refill: <2 Seconds Gastrointestinal: Normal bowel sounds, Soft and benign Musculoskeletal: No erythema, No tenderness, No warmth Integumentary: No erythema, No warmth, No cyanosis Neurological: Normal speech, Normal strength at 5/5 x4 extr, Normal tone, Sensation intact - Studies Laboratory Data (last 24 hrs) 06/22/20 17:20: PT 13.7 H, INR 1.16 06/22/20 17:20: WBC 9.5, Hgb 11.0 L, Hct 33.5 L, Plt Count 267 06/22/20 17:20: Sodium 142, Potassium 4.9, BUN 69 H, Creatinine 3.23 H, Glucose 185 H, Magnesium 2.7 H, Total Bilirubin 0.3, AST 42 H, ALT 42, Alkaline Phosphatase 130 H Assessment and Plan - Plan Assessment Syncope Acute on chronic diastolic congestive heart failure Diabetes mellitus type 2-insulin dependent Atrial fibrillation on chronic anticoagulation therapy Hypertension Hyperlipidemia Plan Syncope: Monitor on telemetry, patient takes amiodarone will continue when doses confirm. Cardiology consult in place. DVT prophylaxis Eliquis 2.5 mg p.o. b.i.d.. Carotid ultrasound ordered. CT brain without acute findings in the emergency department. Acute on chronic diastolic congestive heart failure: Continue with IV diuresis at this time. Continue home medications, appreciate further input from cardiology. Diabetes mellitus type 2-insulin dependent: A.c. HS Accu-Cheks scale insulin therapy. Atrial fibrillation on chronic anticoagulation therapy: Continue Eliquis, telemetry. Hypertension: Continue home meds Hyperlipidemia: Continue home meds Discharge Plan: Home Plan to discharge in: 24 Hours - Advance Directives Does patient have a Living Will: No Does patient have a Durable POA for Healthcare: No - Code Status/Comfort Care Code Status Assessed: Yes (Patient is full code) Critical Care: No Time Spent Managing Pts Care (In Minutes): 55
--- NOTE | 2020-06-22 19:37 | RAD REPORT ---
EXAM DESCRIPTION: CT - Head Brain Wo Cont - 06/22/2020 6:39 pm CLINICAL HISTORY: SYNCOPE Headache, drowsiness, syncope COMPARISON: No comparisons TECHNIQUE: All CT scans are performed using dose optimization technique as appropriate and may inclu de automated exposure control or mA/KV adjustment according to patient size. FINDINGS: No intracranial hemorrhage, hydrocephalus or extra-axial fluid collection.No areas of brai n edema or evidence of midline shift. The paranasal sinuses and mastoids are clear. The calvarium is intact. IMPRESSION: No acute intracranial abnormality.
[2020-06-22] MEDS ORDERED: HYDROCODONE/APAP 5/325 MG TAB PO PRN (21:09)
[2020-06-22] MEDS ORDERED: ONDANSETRON 4 MG/2 ML VIAL IV PRN (21:09)
[2020-06-22] MEDS ORDERED: ACETAMINOPHEN 500 MG TAB PO PRN (21:09)
[2020-06-22 21:12] VITALS: O2SAT 98
[2020-06-22] MEDS: INSULIN -REGULAR HUMAN 50 UNIT/0.5 ML ML SQ SCH (21:58)
[2020-06-22] MEDS: APIXABAN 2.5 MG TABLET PO SCH (21:59)
[2020-06-22 22:38] VITALS: BMI 53.7
[2020-06-23 04:49] LABS: Absolute Lymphocytes (CBC) 0.9 K/uL (0.7-4.9); Basophils % 0.1 % (0-1.3); Lymphocytes % 10.6 % (15.3-44.8); RBC Red Blood Cell Count 3.91 M/uL (3.86-4.86)
[2020-06-23 05:40] LABS: Potassium 4.3 mmol/L (3.5-5.1); Thyroid Stimulating Hormone 3.23 uIU/mL (0.360-3.740)
[2020-06-23] MEDS ORDERED: INFLUENZA VACCINE (for 3y+) 0.5 ML DOSE IMVAC ONE (06:00)
[2020-06-23] MEDS: INSULIN -REGULAR HUMAN 50 UNIT/0.5 ML ML SQ SCH (07:30)
--- NOTE | 2020-06-23 08:10 | P.DS ---
Admission Date: 06/22/20 Discharge Date: 06/23/20 (Hospitalist) Primary Care Provider: Dr. Munoz, Cardiology: Dr. Zafar Disposition: ROUTINE DISCHARGE Discharge Condition: GOOD Reason for Admission: Syncope Brief History of Present Illness: Patient is 69 years of age admitted with a syncopal attack she has been under lot of stress recently Hospital Course: Admitted for observation did well at the time of discharge patient alert oriented responsive cooperative No evidence of cranial nerve dysfunction no evidence of weakness of her extremities denies any chest pain palpitations/telemetry was unremarkable apart from sinus bradycardia patient has AFib is on amiodarone chronic renal failure diastolic heart failure chemistries reviewed head CT negative no complaints at the time of discharge her chest was clear cardiovascular system os sounds normal abdomen soft Vital Signs/Physical Exam: Temp Pulse Resp BP Pulse Ox 97.0 F 73 17 140/65 99 06/23/20 04:00 06/23/20 04:00 06/23/20 04:00 06/23/20 04:00 06/23/20 04:00 Laboratory Data at Discharge: WBC 8.7 K/uL (4.3-10.9) 06/23/20 04:34 Hgb 10.8 g/dL (12.0-15.0) L 06/23/20 04:34 Hct 34.0 % (36.0-45.0) L 06/23/20 04:34 Plt Count 247 K/uL (152-406) 06/23/20 04:34 PT 13.7 SECONDS (9.5-12.5) H 06/22/20 17:20 INR 1.16 06/22/20 17:20 Sodium 143 mmol/L (136-145) 06/23/20 04:34 Potassium 4.3 mmol/L (3.5-5.1) 06/23/20 04:34 BUN 77 mg/dL (7-18) H 06/23/20 04:34 Creatinine 2.90 mg/dL (0.55-1.3) H 06/23/20 04:34 Glucose 134 mg/dL (74-106) H 06/23/20 04:34 Magnesium 2.7 mg/dL (1.8-2.4) H 06/22/20 17:20 Total Bilirubin 0.3 mg/dL (0.2-1.0) 06/22/20 17:20 AST 42 U/L (15-37) H 06/22/20 17:20 ALT 42 U/L (12-78) 06/22/20 17:20 Alkaline Phosphatase 130 U/L (45-117) H 06/22/20 17:20 Troponin I < 0.02 ng/mL (0.0-0.045) 06/23/20 04:34 Home Medications: Allopurinol 100 mg PO DAILY 09/06/19 Amiodarone HCl [Pacerone] 200 mg PO DAILY 09/06/19 Apixaban [Eliquis *] 2.5 mg PO BID 09/06/19 Atorvastatin Calcium [Lipitor*] 20 mg PO BEDTIME 09/06/19 Cholecalciferol (Vitamin D3) [Vitamin D 1000 Iu Tab*] 3,000 unit PO DAILY 09/06/19 Clonidine HCl [Catapres*] 0.2 mg PO BID 09/06/19 Ferrous Gluconate [Iron] 236 mg PO TID 09/06/19 Fluticasone [Flonase 50MCG Nasal Central*] 2 sprays NS DAILY 09/06/19 Furosemide [Lasix*] 1 tab PO DAILY 6PM 09/06/19 Furosemide [Lasix*] 2 tab PO DAILY 09/06/19 Insulin NPH Human Isophane [Novolin N] 43 unit SQ DAILY AT SUPPER 09/06/19 Insulin NPH Human Isophane [Novolin N] 45 unit SQ DAILY 09/06/19 Liraglutide [Victoza 2-Meir] 1.8 mg SQ DAILY 09/06/19 Loratadine [Claritin*] 10 mg PO BEDTIME 09/06/19 Spironolactone [Aldactone*] 25 mg PO M,W,F 09/06/19 Minocycline HCl 100 mg PO BID #14 capsule 09/08/19 Mupirocin Oint [Bactroban 2% Ointment*] 22 appl TOP BID #1 tube 09/08/19 clindamycin HCL [Cleocin HCl *] 150 mg PO Q8H #21 cap 09/08/19 Patient Discharge Instructions: Patient to resume all her home medications not sure if she is taking antibiotics to check with the primary care physician patient has been advised to follow-up with Cardiology which she is scheduled to have a follow-up visit next week Diet: Renal Activity: Ad jose
[2020-06-23] MEDS: APIXABAN 2.5 MG TABLET PO SCH (08:33)
[2020-06-23 08:39] VITALS: BP 144/64
[2020-06-23] MEDS ORDERED: FUROSEMIDE 40 MG/4 ML VIAL IV SCH (09:00)
[2020-06-23 09:14] VITALS: TEMP 97.7
== END 2020-06-23 10:32 | disposition home or self-care (01) ==
LOC: ER 16:47 → ERHOLD 19:16 → 2ND 20:31
PROVIDERS: ADMIT Internal Medicine Sleep Medicine; ATTEND Internal Medicine Sleep Medicine
DX: R55 Syncope and collapse (principal); I13.0 Hypertensive heart and chronic kidney disease with heart failure and stage 1 through stage 4 chronic kidney disease, or unspecified chronic kidney disease; N18.4 Chronic kidney disease, stage 4 (severe); I50.33 Acute on chronic diastolic (congestive) heart failure; Z20.828 Contact with and (suspected) exposure to other viral communicable diseases; E11.22 Type 2 diabetes mellitus with diabetic chronic kidney disease; Z79.4 Long term (current) use of insulin; I48.91 Unspecified atrial fibrillation; Z79.01 Long term (current) use of anticoagulants; E78.5 Hyperlipidemia, unspecified; E03.9 Hypothyroidism, unspecified; E66.9 Obesity, unspecified; M16.9 Osteoarthritis of hip, unspecified; Z23 Encounter for immunization
CPT/HCPCS: 93005; 85025 ×2; 80048 ×2; 36415; 83735; 85610; 82947 ×2; 80076; 84443; 81003; 84484 ×3; 84439; 83880; 70450; 71045; 90471; 96374; 99285; U0002; J1940 ×2; Q2035; G0378 ×3

== ENCOUNTER 2021-05-08 04:41 | Emergency (ER) | payer OTHER ==
--- OUTSIDE RECORDS SUMMARY | 2021-05-08 04:44 | XMS REPORT | Clinical Summary ---
:1950 Author Organization [facility] Address [address] [place] [address] Care Team Providers Name Role Phone Daly Lynn MD Primary Care Provider Myles, "Tarsha" Unavailable Myles "Mini" Unavailable Allergies Active Allergy Reactions Severity Noted Date Comments Amoxicillin Itching Low 08/06/2016 Sulfamethoxazole-Trimethoprim Itching Low 08/06/2016 Medications Medication Sig Dispensed Refills Start Date End Date Status carvedilol (COREG) 25 Take 25 mg by 0 Active mg tablet mouth twice daily. furosemide (LASIX) 40 Take 40 mg by 0 Active mg tablet mouth twice daily. 40mg in AM, 20mg in PM daily INSULIN NPH HUMAN Inject 45 Units 0 Active ISOPHANE (NOVOLIN N under the skin SUBCUTANEOUS) twice daily. 45 units in AM and 40 units at bedtime LIRAGLUTIDE (VICTOZA Inject 1.8 mg 0 Active 2-TRENA SUBCUTANEOUS) under the skin daily. cholecalciferol, Take 2,000 Units 0 Active vitamin D3, (VITAMIN by mouth daily. D3) 2,000 units tab tablet apixaban (ELIQUIS) 2.5 Take 2.5 mg by 0 Active mg tablet mouth twice daily. cloNIDine HCl Take 0.2 mg by 0 A ctive (CATAPRES) 0.2 mg mouth twice tablet daily. ferrous gluconate Take 37 mg by 0 Active (FERGON) 325 mg tablet mouth daily with breakfast. atorvastatin (LIPITOR) Take 20 mg by 0 Active 20 mg tablet mouth daily. spironolactone Take 1 tablet by 0 10/14/2016 Active (ALDACTONE) 25 mg mouth 3 (three) tablet times a week Thursday, Thursday and Thursday. allopurinol (ZYLOPRIM) Take 100 mg by 0 Active 100 mg tablet mouth daily. amiodarone (PACERONE) Take 200 mg by 0 Active 200 mg tablet mouth daily. fluticasone (FLONASE) Inhale 1 spray 0 Active 50 mcg/spray nasal into each nostril spray daily. loratadine (CLARITIN) Take 10 mg by 0 Active 10 mg tablet mouth daily. nystatin (MYCOSTATIN) Apply topically 30 g 0 06/02/2019 Active 100,000 units/g to affected powderIndications: area(s) twice Malignant neoplasm of daily. 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 Cancer Staging: Clinical stage from 08/07: Stage IA (Primary) - Signed by Daly Lynn MD on 08/29/2016 Atrial fibrillation 08/06/2016 Diabetes mellitus 08/06/2016 Encounters Date Type Specialty Care Team Description 11/29/2020 Orders Only Infectious Diseases Rosana Reynoso, SARS -CoV-2 vaccination 06/15/2020 Office Visit Surgical Oncology Daly Lynn nt neoplasm of endometrium (Primary Dx); MD Ralph Morbid (severe) obesity due to excess ca Alejandrina Kwon PA after 05/08/2020 Surgical History Surgery Date Site/Laterality Comments COLONOSCOPY Normal HYSTEROSCOPY 05/03/2016 TUBAL LIGATION Bilateral DC LAPAROSCOPY TOT 08/15/2016 N/A Procedure: RO BOTIC ASSISTED HYSTERECTOMY UTERUS >250 GRAM TO MATEUSZ HYSTERECTOMY; Surgeon: W TUBE/OVARY Daly ugpta MD; Location: MAIN O R; Service: BLEACH BOILER FILLER - GYNECOLOGI C ONCOLOGY DC REMOVAL OF OVARY/TUBE(S) 08/15/2016 Bilateral Proc edure: ROBOTIC ASSISTED SALPINGO-OOPHORE CTOMY; Surgeon: Daly Lynn MD; Location: [facility] OR; Service: BLEACH BOILER FILLER - G YNECOLOGIC ONCOLOGY DC INTRAOPERATIVE SENTINEL 08/15/2016 Bilateral Proce dure: INTRAOPERATIVE LYMPH NODE ID W DYE INJECTION LY MPHATIC MAPPING; ROBOTIC SENTINEL LYMPH N ODE MAPPING AND LYMPH NODE B IOPSY; Surgeon: Daly Lynn MD; Location: [facility]; Service: BLEACH BOILER FILLER - G YNECOLOGIC ONCOLOGY Medical History Medical History Date Comments Hypertension 1999 Hyperlipidemia 1999 Irregular heart beat 2004 Afib Dependence on continuous positive airway pressure Does not use ventilation Diverticulitis 2012 Disorder of vagina January 2016 Vaginal bleeding 201 6 Menopause 2000 Anemia 04/2016 Blood transfusion, without reported diagnosis 04/2016 Arthritis 2000 Diabetes mellitus 2000 Herpes zoster 2004 Cancer Family History Medical History Relation Name Comments -Breast cancer Maternal Aunt Kiki Hypertension Maternal Grandmother Tawnya Stroke Maternal Grandmother Tawnya Stroke Mother Elina Relation Name Status Comments Maternal Aunt Kiki Maternal Grandmother Tawnya Mother Elina Social History Tobacco Use Types Packs/Day Years Used Date Never Smoker Smokeless Tobacco: Never Used Comments: has had secondhand smoke expos ure Alcohol Use Standard Drinks/Week Comments No 0 (1 standard drink = 0.6 oz pure alcoho l) Sex Assigned at Date Recorded Not on file Obstetrics History Grav Para Term Pre Abrt (TAB) (SAB) (Ect) Mult Lvng Comments 4 4 4 4 1) Screening: Pap Smear - denies abnormal. Mammogram: last this year, denies abnormal. 2) HRT:denies Date Outcome GA Total Labor/2nd/3rd Weight Sex Delivery Anes PTL Valeria A 1 A5 Name Clin Labor Term Term Term Term Last Filed Vital Signs Not on file Plan of Treatment Health Maintenance Due Date Last Done Comments COVID-19 Vaccination (1) 1964 Results Not on fileafter 05/08/2020 Insurance Payer Benefit Plan / Subscriber ID Effective Phone Address T ype Group Dates MEDICARE MEDICARE PART [id number] 2017-Pres [phone] CARITO, T X Medicare A AND B ent [address] OLIVIER [id number] 2014-Pres Govern mental MEDICARE ent Other SUPPLEMENT Nhung Munson Personal/Family Self 1950 [address] [place] [address] Nhung Munson Personal/Family Self 1950 [address] [place] [address] Advance Directives Code Status Date Activated Date Inactivated Comments Full Code 08/15/2016 10:41 AM 08/16/2016 1:29 PM
--- OUTSIDE RECORDS SUMMARY | 2021-05-08 04:45 | XMS REPORT | Continuity of Care Document ---
:1950 Author Organization [facility] t Address [address] [place] [address] Care Team Providers Name Role Phone Ralph HIDALGO Primary Care Physician Unavailable AGUILAR Attending Clinician Unavailable Edgardo POWERS Attending Clinician Ralph Hidalgo MD Attending Clinician Arturo CHOI Attending Clinician Ralph HIDALGO Attending Clinician Unavailable Payers Payer Name Policy Type Policy Number Effective Expiration Source Date Date [id number] 2014 2024 00:00:00 00:00:00 MEDICAREMEDICARE PART [id number] 2017 MD Emiliano Costa AND 00:00:00 [id number] 2017- [id number] [place] [id number] 2014 MD Tomp[place] n MEDICARE 00:00:00 [id number] 01/2014-PresentGovernm ental Other Problems Condition Condition Condition Status Onset Resolution Last Treating Co mments Source Name Details Category Date Date Treatment Clinician Date Renal Renal Disease Active impairment impairment 2-13 An derso 00:00: n 00 Morbid Morbid Disease Active (severe) (severe) 05-14 Rg o obesity obesity 00:00: n due to due to 00 excess excess calories calories Peripheral Peripheral Disease Active Keke Guevara edema edema 02-05 Anderso 00:00: n 00 Essential Essential Disease Active 2015-09 (primary) (primary) 10-08 Mike rso hypertensi hypertensi 00:00: n on on senior living senior living Disease Active 2015-09 current current 10-08 Anderso use of use of 00:00: n anticoagul anticoagul 00 ant ant Sleep Sleep Disease Active 2015-09 apnea apnea 10-08 Anderso 00:00: n 00 Malignant Malignant Disease Active 2015-09 neoplasm neoplasm 10-06 Rg o of of 00:00: n endometriu endometriu 00 m m Atrial Atrial Disease Active 2015-09 fibrillati fibrillati 10-06 An derso on on 00:00: n 00 Diabetes Diabetes Disease Active 2015-09 mellitus mellitus 10-06 Rg o 00:00: n 00 Allergies, Adverse Reactions, Alerts This patient has no known allergies or adverse reactions. Family History Family Member Diagnosis Comments Start Date Stop Date Source Maternal aunt -Breast cancer MD Mike broderick Maternal grandmother Hypertension MD Cummings Maternal grandmother Stroke MD Igor feldmanrstelma Natural mother Stroke Andsesar quevedo Social History Social Habit Start Date Stop Date Quantity Comments Source Tobacco use and 2019-06-02 2019-06-02 Never used MD Diez on exposure 00:00:00 00:00:00 Alcohol intake 2019-06-02 2019-06-02 Current non-drinker Keke Cummings 00:00:00 00:00:00 of alcohol (finding) Tobacco Comment 2016-08-06 2016-08-06 has had secondhand Keke Cummings 00:00:00 00:00:00 smoke exposure Sex [birth year] At [birth year] MD Diez on 00:00:00 00:00:00 Smoking Status Start Date Stop Date Source Never smoker MD Cummings Medications Ordered Filled Start Stop Current Ordering Indication Dosage Frequency Signature Comments Components Source Medication Medication Date Date Medication? Clinician (SIG) Name Name nystatin Yes Candidiasis Apply M D (MYCOSTATIN 06-02 of skin topically Anderso ) 100,000 00:00: [...] skin n SUBCUTANEOU 40 daily. S) cholecalcif 2019 Yes 2000U Take 2,000 MD stefania, 9-25 Units by Anderso vitamin D3, 20:41: mouth n (VITAMIN 40 daily. D3) 2,000 units tab tablet apixaban Yes 2.5mg Take 2.5 MD (ELIQUIS) 9-25 mg by Anderso 2.5 mg 20:41: mouth n tablet 40 twice daily. cloNIDine Yes .2mg Take 0.2 MD HCl 9-25 mg by Anderso (CATAPRES) 20:41: mouth n 0.2 mg 40 twice tablet daily. ferrous 0 Yes 37mg Take 37 mg MD gluconate 9-25 by mouth Rg o (FERGON) 20:41: daily with n 325 mg 40 breakfast. tablet atorvastati Yes 20mg Take 20 mg MD n (LIPITOR) 9-25 by mouth Mike rso 20 mg 20:41: daily. n tablet 40 allopurinol 0 Yes 100mg Take 100 M D (ZYLOPRIM) 9-25 mg by Anderso 100 mg 20:41: mouth n tablet 40 daily. amiodarone 20190 Yes 200mg Take 200 MD (PACERONE) 9-25 mg by Anderso 200 mg 20:41: mouth n tablet 40 daily. fluticasone 2019-0 Yes 1{spray Inhale 1 MD (FLONASE) 9-25 } spray into Mike rso 50 20:41: each n mcg/spray 40 nostril nasal spray daily. loratadine 0 Yes 10mg Take 10 mg M D (CLARITIN) 9-25 by mouth Cheko so 10 mg 20:41: daily. n tablet 40 spironolact 2017-0 Yes 1{tbl} Take 1 one 2-07 tablet by Leda (ALDACTONE) 00:00: mouth 3 n 25 mg 00 (three) tablet times a week Thursday, Thursday and Thursday. Procedures This patient has no known procedures. Plan of Care Planned Activity Planned Date Details Comments Source Future Scheduled Test 1964 00:00:00 COVID-19 Vaccination MD Cummings (1) [code = COVID-19 Vaccination (1)] Encounters Start End Encounter Admission Attending Care Care Encounter Source Date/Time Date/Time Type Type Clinicians Facility Department ID 2021-05-07 Outpatient [facility] [id number] [place] 09:30:50 [facility] 2021-03-08 Outpatient [facility] [id number] [place] 01:04:08 [facility] 2021-01-16 Outpatient [facility] [id number] [place] 11:42:44 [facility] 2020-01-24 Outpatient [id number] 08:47:[address] [facility] 2021-02-05 2021-02-05 Outpatient [id number] MH 08:46:00 08:46:[address] [facility] 2020-06-15 2020-06-15 Outpatient SAEED HIDALGO [facility] [id number] 00:00:00 00:00:00 OSVALDO quevedo 2020-01-27 2020-01-27 Outpatient E [facility] [id number] MH 08:12:00 08:12:[address] [address] [facility] 2019-10-20 2019-10-20 Outpatient [id number] MH 05:20:00 05:20:00 [facility] Results This patient has no known results.
[2021-05-08] MEDS ORDERED: MIDAZOLAM HCL 2 MG/2 ML INJ ONE ×4 (05:12→06:05)
[2021-05-08 05:19] LABS: Absolute Lymphocytes (CBC) 0.7 K/uL (0.7-4.9); Basophils % 0.7 % (0-1.3); Hematocrit 33.1 % (36.0-45.0); Lymphocytes % 5.9 % (15.3-44.8); MPV 8.9 fL (7.6-11.3); RBC Red Blood Cell Count 3.43 M/uL (3.86-4.86)
[2021-05-08 05:22] LABS: Protime INR 1.16
[2021-05-08] MEDS ORDERED: NA CHLORIDE 0.9% 100 ML ONE (05:32)
[2021-05-08] MEDS ORDERED: FENTANYL CITR 100 MCG/2 ML ONE ×2 (05:32→05:38)
[2021-05-08 05:58] LABS: Blood Morphology Comment NOT SEEN (NOT SEEN); Platelet Estimate ADEQ
--- NOTE | 2021-05-08 06:29 | EDPHYS ---
Physician Documentation [facility] Name: Nhung Munson Age: 70 yrs Sex: Female : 1950 Arrival Date: 05/08/2021 Time: 04:40 Bed 3 Private MD: ED Physician Preston Ramos HPI: 05/08 04:57 This 70 yrs old Female presents to ER via Unassigned with complaints of ma2 bradycardia, unresponsive. 04:57 Onset: suddenly, 1 hour(s) ago. Associated signs and symptoms: Pertinent positives: ma2 syncope, Pertinent negatives: diaphoresis, lower extremity pain, lightheadedness, near syncope, shortness of breath. Severity of pain:. The patient has experienced similar episodes in the past. 05:07 Patient was scheduled to get a pacemaker, due to bradycardia. She was hypotensive today ma2 and unresponsive, when EMS arrived she had bradycardia. Cutaneous pacemaker was started and patient was back to normal with good capture and normal bp, axo x 4 . Historical: - Allergies: 05:02 Amoxicillin; em 05:02 Bactrim DS; em 05:02 Demerol; em - Home Meds: 05:12 Insulin: Novolin R Sub-Q [Active]; Eliquis oral [Active]; furosemide Oral [Active]; em Allopurinol Oral [Active]; carvedilol oral [Active]; atorvastatin oral [Active]; Claritin Oral [Active]; Isosorbide Mononitrate Oral [Active]; Spironolactone Oral [Active]; - PMHx: 05:02 Atrial Fib; Diabetes - IDDM; High Cholesterol; Hypertension; renal problems; em - Immunization history:: unknown at this time. - Social history:: Smoking status: unknown. - Family history:: not pertinent. ROS: 05:07 Constitutional: Negative for fever, chills, and weight loss. ma2 05:07 All other systems are negative. Exam: 05:07 Constitutional: This is a well developed, well nourished patient who is awake, alert, ma2 and in no acute distress. Head/Face: Normocephalic, atraumatic. Eyes: Pupils equal round and reactive to light, extra-ocular motions intact. Lids and lashes normal. Conjunctiva and sclera are non-icteric and not injected. Cornea within normal limits. Periorbital areas with no swelling, redness, or edema. ENT: Nares patent. No nasal discharge, no septal abnormalities noted. Tympanic membranes are normal and external auditory canals are clear. Oropharynx with no redness, swelling, or masses, exudates, or evidence of obstruction, uvula midline. Mucous membranes moist. Neck: Trachea midline, no thyromegaly or masses palpated, and no cervical lymphadenopathy. Supple, full range of motion without nuchal rigidity, or vertebral point tenderness. No Meningismus. Chest/axilla: Normal chest wall appearance and motion. Nontender with no deformity. No lesions are appreciated. Respiratory: Lungs have equal breath sounds bilaterally, clear to auscultation and percussion. No rales, rhonchi or wheezes noted. No increased work of breathing, no retractions or nasal flaring. Abdomen/GI: Soft, non-tender, with normal bowel sounds. No distension or tympany. No guarding or rebound. No evidence of tenderness throughout. Skin: Warm, dry with normal turgor. Normal color with no rashes, no lesions, and no evidence of cellulitis. MS/ Extremity: Pulses equal, no cyanosis. Neurovascular intact. Full, normal range of motion. Neuro: Awake and alert, GCS 15, oriented to person, place, time, and situation. Cranial nerves II-XII grossly intact. Motor strength 5/5 in all extremities. Sensory grossly intact. Cerebellar exam normal. Normal gait. 05:07 Cardiovascular: Rate: bradycardic, Rhythm: complete heart block , Pulses: no pulse deficits are appreciated, Heart sounds: Edema: is not appreciated. Vital Signs: 04:50 Pulse 83; Resp 20; Pulse Ox 98% on Non-rebreather mask; Weight 147.42 kg (R); em 05:09 BP 114 / 36 LL (/lg); em 05:32 BP 126 / 41; Pulse 82; Resp 23; Pulse Ox 100% on 100% Non-rebreather mask; jb4 06:01 BP 113 / 49; Pulse 70; Resp 18; Pulse Ox 100% on 100% Non-rebreather mask; jb4 07:43 Weight 142.88 kg (R); Height 5 ft. 2 in. (157.48 cm); hb 07:43 Body Mass Index 57.61 (142.88 kg, 157.48 cm) hb 04:50 unable to obtain BP at this time em Procedures: 05:47 Pacing: Patient was paced with an external pacer Using non-demand mode, Rate set at 80 ma2 in beats/min. Current set at 120 milliamps. Capture was noted. MDM: 04:53 Patient medically screened. ga2 05:07 Differential diagnosis: abnormal EKG, acute myocardial infarction, gastroesophageal ma2 reflux disease (GERD), stable angina. 05:48 Data reviewed: vital signs, nurses notes. ga2 06:19 ED course: . ma2 06:20 ED course: patient needs a pacemaker and we dont have this service at this hospital. ma2 will transfer for higher level of care.. discussed and accepted by dr. siddiqui . 06:26 ED course: patient is accepted by [facility] and er Dr. siddiqui. at [facility] they ma2 have a non-covid CV ICU bed. they would like to wait for the covid result before patient is transported . 05/08 04:52 Order name: Basic Metabolic Panel [facility] 05/08 04:52 Order name: CBC with Diff; Complete Time: 06:08 [facility] 05/08 04:52 Order name: LFT's [facility] 05/08 04:52 Order name: Magnesium [facility] 05/08 04:52 Order name: NT PRO-BNP [facility] 05/08 04:52 Order name: PT-INR; Complete Time: 06:08 [facility] 05/08 04:52 Order name: Troponin (emerg Dept Use Only) [facility] 05/08 04:52 Order name: XRAY Chest (1 view) [facility] 05/08 05:30 Order name: Manual Differential; Complete Time: 06:08 [facility] 05/08 07:09 Order name: SARS-COV-2 RT PCR [facility] 05/08 04:52 Order name: EKG; Complete Time: 04:52 [facility] 05/08 04:52 Order name: Cardiac monitoring; Complete Time: 05:15 [facility] 05/08 04:52 Order name: EKG - Nurse/Tech; Complete Time: 05:15 [facility] 05/08 04:52 Order name: IV Saline Lock; Complete Time: 05:15 [facility] 05/08 04:52 Order name: Labs collected and sent; Complete Time: 05:15 [facility] 05/08 04:52 Order name: O2 Per Protocol; Complete Time: 05:15 ma2 05/08 04:52 Order name: O2 Sat Monitoring; Complete Time: 05:15 ma2 Administered Medications: 04:45 Drug: Versed (midazolam) 5 mg Route: IVP; Site: right antecubital; em 06:00 Follow up: Response: No adverse reaction jb4 05:10 Drug: fentaNYL (PF) 25 mcg Route: IVP; Site: left wrist; ea 06:01 Follow up: Response: No adverse reaction; Marked relief of symptoms jb4 05:19 Drug: fentaNYL (PF) 10 mcg/h Route: IV; Rate: calculated rate; Site: left wrist; ea 07:58 Follow up: IV Status: Infusion continued upon transfer jl7 05:50 Drug: Versed (midazolam) 5 mg Route: IVP; Site: left wrist; jb4 06:01 Follow up: Response: No adverse reaction; Marked relief of symptoms jb4 06:00 Not Given (Duplicate Order): Versed (midazolam) 5 mg IM once jb4 Disposition: 05:47 Critical Care:. ma2 Disposition Summary: 05/08/21 06:28 Transfer Ordered Transfer Location: Other Acute Care Facility ma2 Reason: Higher level of care ma2 Condition: Stable ma2 Problem: new ma2 Symptoms: are unchanged ma2 Accepting Physician: dr. siddiqui(05/08/21 08:33) ss Diagnosis - Bradycardia, unspecified ma2 Forms: - Medication Reconciliation Form ma2 - SBAR form ma2 Critical care time excluding procedures: 05:47 Critical care time: Bedside Care: 30 minutes, Consultation: 10 minutes, Family ma2 Intervention: 5 minutes. Total time: 45 minutes Signatures: Dispatcher [employer] EDMA Shaun Stevenson RN RN Kristin Mistry RN RN ss Dagoberto Ribeiro RN RN jb4 Regla Rich RN RN ea Alzahri, Mohammad, MD MD ma2 Shmuel Kim RN jl7 Corrections: (The following items were deleted from the chart) 05:25 05:18 CORONAVIRUS+ ordered. [facility] EDMA 08:33 06:28 dr. siddiqui ma2 ss
--- NOTE | 2021-05-08 06:29 | ER ---
Nurse's Notes [facility] Name: Nhung Munson Age: 70 yrs Sex: Female : 1950 Arrival Date: 05/08/2021 Time: 04:40 Bed 3 Private MD: Diagnosis: Bradycardia, unspecified Presentation: 05/08 04:50 Chief complaint: EMS states: called out for feeling faint, on scene pt had a syncopal em episode and became unresponsive, CPR was initiated for 1 minute, on the monitor pt was bradycardic between 20-40, began pacing at 70 HR with 100 mally-amps, pt became oriented and responsive while pacing, pt was given 5 versed and 500 mL NS, pt currently paced on arrival, 20 G R hand, Dr Ramos at bedside, pt is scheduled to have a pacemaker placed in August, of [facility]. Initial Sepsis Screen: Does the patient meet any 2 criteria? No. Patient's initial sepsis screen is negative. Does the patient have a suspected source of infection? No. Patient's initial sepsis screen is negative. Risk Assessment: Do you want to hurt yourself or someone else? Patient reports no desire to harm self or others. Onset of symptoms was May 08, 2021. 04:50 Method Of Arrival: EMS: [facility] em 04:50 Acuity: BACILIO 1 em 05:10 Ebola Screen: No symptoms or risks identified at this time. ea 05:10 Coronavirus screen: Vaccine status: Patient reports receiving the 2nd dose of the covid em vaccine. Triage Assessment: 05:02 General: Appears obese, Behavior is sedated . Pain: Complains of pain in chest Unable em to use pain scale. Patient appears to be moaning. Neuro: Level of Consciousness is lethargic. Cardiovascular: Rhythm is with capture. Respiratory: Airway is patent Respiratory effort is even, unlabored. Derm: Skin is intact, is healthy with good turgor, Skin is pink, warm \\T\\ dry. Historical: - Allergies: 05:02 Amoxicillin; em 05:02 Bactrim DS; em 05:02 Demerol; em - Home Meds: 05:12 Insulin: Novolin R Sub-Q [Active]; Eliquis oral [Active]; furosemide Oral [Active]; em Allopurinol Oral [Active]; carvedilol oral [Active]; atorvastatin oral [Active]; Claritin Oral [Active]; Isosorbide Mononitrate Oral [Active]; Spironolactone Oral [Active]; - PMHx: 05:02 Atrial Fib; Diabetes - IDDM; High Cholesterol; Hypertension; renal problems; em - Immunization history:: unknown at this time. - Social history:: Smoking status: unknown. - Family history:: not pertinent. Screenin:09 Abuse screen: Denies threats or abuse. Nutritional screening: No deficits noted. ea Tuberculosis screening: No symptoms or risk factors identified. Fall Risk IV access (20 points). Assessment: 05:29 Reassessment: Pt immediately loses consciousness when pacing is interrupted for any jb4 duration of time. Regains consciousness when pacing is resumed. Is currently awake and disoriented to place. Appears to be more comfortable with fentanyl drip. 05:45 Reassessment: Fentanyl drip increased to 50mcg/hr per providers instructions. Okayed to jb4 increase to 100mcg/hr for comfort and sedation. 05:55 Reassessment: Fentanyl drip increased to 75mcg/hr. jb4 06:16 Reassessment: Pt is currently resting with eyes closed, remains on fentanyl drip. jb4 Continues to be paced. respirations are even and unlabored. no s/s of distress noted. 06:29 Reassessment: Fentanyl drip increased to 100mcg per hour. jb4 07:57 Reassessment: [facility] at bedside to transport pt. Pt's purse given to . jl7 Vital Signs: 04:50 Pulse 83; Resp 20; Pulse Ox 98% on Non-rebreather mask; Weight 147.42 kg (R); em 05:09 BP 114 / 36 LL (/lg); em 05:32 BP 126 / 41; Pulse 82; Resp 23; Pulse Ox 100% on 100% Non-rebreather mask; jb4 06:01 BP 113 / 49; Pulse 70; Resp 18; Pulse Ox 100% on 100% Non-rebreather mask; jb4 07:43 Weight 142.88 kg (R); Height 5 ft. 2 in. (157.48 cm); hb 07:43 Body Mass Index 57.61 (142.88 kg, 157.48 cm) hb 04:50 unable to obtain BP at this time em ED Course: 04:40 Patient arrived in ED. mw2 04:50 Preston Ramos MD is Attending Physician. ma2 04:55 initiated a transfer with Tamika from [facility] Transfer [place]. mw2 05:[address] [facility] denied due to capacity. mw2 05:02 Triage completed. em 05:02 Arm band placed on. em 05:07 initiated a transfer with Monique from [facility]. mw2 05:09 Patient has correct armband on for positive identification. Placed in gown. Bed in low ea position. Call light in reach. Side rails up X2. 05:19 Dagoberto Ribeiro, RN is Primary Nurse. jb4 05:[address] [facility] denied due to capacity. mw2 05:32 initiated a transfer with Nithya from [facility]. mw2 05:40 initiated a transfer with Andrés from [facility] [[email or web address] Transfer [place]. mw2 05:43 [facility] denied due to capacity. mw2 05:46 [facility] [[email or web address] denied due to capacity. mw2 05:47 initiated a transfer with Madelyn from [facility]. mw2 05:51 XRAY Chest (1 view) In Process Unspecified. EDMS 06:[address] Ramos with the ER and Tactical Debriefer from [facility]. mw2 06:32 Madelyn from [facility] called back to inform us that " the patient will have a mw2 bed, but we need the covid result first.". 08:05 Primary Nurse role handed off by Dagoberto Ribeiro, RN bd 08:25 pt accepted in transfer to [facility]. pt accepted by Dr Vinayak Navarro admin approval bd given Madelyn Moss. Administered Medications: 04:45 Drug: Versed (midazolam) 5 mg Route: IVP; Site: right antecubital; em 06:00 Follow up: Response: No adverse reaction jb4 05:10 Drug: fentaNYL (PF) 25 mcg Route: IVP; Site: left wrist; ea 06:01 Follow up: Response: No adverse reaction; Marked relief of symptoms jb4 05:19 Drug: fentaNYL (PF) 10 mcg/h Route: IV; Rate: calculated rate; Site: left wrist; ea 07:58 Follow up: IV Status: Infusion continued upon transfer jl7 05:50 Drug: Versed (midazolam) 5 mg Route: IVP; Site: left wrist; jb4 06:01 Follow up: Response: No adverse reaction; Marked relief of symptoms jb4 06:00 Not Given (Duplicate Order): Versed (midazolam) 5 mg IM once jb4 Outcome: 06:28 ER care complete, transfer ordered by MD. painting 08:33 Patient left the ED. Signatures: Dispatcher [employer] EDNM Usha Kumar Edgar RN JAZMYN Kristin Guzman RN RN Sadia Landry RN Dagoberto Barragan RN RN jb4 Leal, Jahala RN JAZMYN jl7 Regla Rich RN Preston Hollingsworth ea, MD MD ma2 Alcon Cunningham 2 Corrections: (The following items were deleted from the chart) 05:26 04:50 Chief complaint: EMS states: called out for feeling faint, on scene pt had a em syncopal episode and became unresponsive, CPR was initiated for 1 minute, on the monitor pt was bradycardic between 20-40, began pacing at 70 HR with 100 mally-amps, pt became oriented and responsive while pacing, pt was given 5 versed and 500 mL NS, pt currently paced on arrival, 20 G R hand, Dr Ramos at bedside em 06:34 06:16 Reassessment: Pt is currently resting with eyes closed, remains on fentanyl drip. jb4 Continues to be paced. respirations are even and unlabored. jb4
[2021-05-08 06:42] LABS: ALT/SGPT 49 U/L (12-78); AST/SGOT 40 U/L (15-37); Albumin 3.1 g/dL (3.4-5.0); Alkaline Phosphatase 110 U/L (45-117); BUN Blood Urea Nitrogen 77 mg/dL (7-18); Bicarbonate 26 mmol/L (21-32); Bilirubin Direct 0.2 mg/dL (0-0.2); Bilirubin Total 0.4 mg/dL (0.2-1.0); Glucose Level 336 mg/dL (74-106); Magnesium 2.5 mg/dL (1.8-2.4); NT PRO-BNP 1474 pg/mL (<125); Potassium 4.6 mmol/L (3.5-5.1); Protein, Total 6.6 g/dL (6.4-8.2); Sodium Level 141 mmol/L (136-145); Troponin (Emerg Dept Use Only) < 0.02 ng/mL (0.0-0.045)
--- NOTE | 2021-05-08 07:05 | RAD REPORT ---
EXAM DESCRIPTION: RAD - Chest Single View - 05/08/2021 5:51 am CLINICAL HISTORY: syncope COMPARISON: Chest Single View dated 06/22/2020; Chest Single View dated 07/03/2018; Chest Pa And Lat (2 Views) dated 05/02/2016; CHEST SINGLE VIEW dated 12/27/2011 FINDINGS: Diffuse hazy airspace disease and prominence of the pulmonary interstitium. Cardiomegaly.N o acute osseous abnormality. No significant pleural effusions or pneumothorax. IMPRESSION: Findings consistent with interstitial pulmonary edema.
[2021-05-08 08:40] VITALS: O2SAT 100
[2021-05-08 08:42] VITALS: BP 113/49
== END 2021-05-08 08:33 ==
LOC: ER 04:41
DX: R00.1 Bradycardia, unspecified (principal); I10 Essential (primary) hypertension; E11.9 Type 2 diabetes mellitus without complications; I48.91 Unspecified atrial fibrillation; Z79.4 Long term (current) use of insulin; Z79.01 Long term (current) use of anticoagulants; Z20.822 Contact with and (suspected) exposure to COVID-19; Z88.1 Allergy status to other antibiotic agents; Z88.5 Allergy status to narcotic agent
CPT/HCPCS: 93005; 85025; 80048; 36415; 83735; 85610; 80076; 84484; 83880; 71045; 92953; 99291; 99292; U0003; J2250 ×3; J3010 ×2

== ENCOUNTER 2021-06-24 17:39 | Inpatient (IN) | payer OTHER ==
[2021-06-24 18:31] LABS: Absolute Lymphocytes (CBC) 0.6 K/uL (0.7-4.9); Basophils % 1.1 % (0-1.3); Hematocrit 30.2 % (36.0-45.0); Lymphocytes % 10.3 % (15.3-44.8); MPV 8.4 fL (7.6-11.3); RBC Red Blood Cell Count 3.23 M/uL (3.86-4.86)
[2021-06-24 18:32] LABS: Protime INR 1.58
[2021-06-24 18:41] LABS: Urine Blood Negative (Negative); Urine Glucose Negative (Negative); Urine Protein Negative (Negative); Urine Specific Gravity 1.015 (1.005-1.030)
[2021-06-24 18:48] LABS: Albumin 3.1 g/dL (3.4-5.0); Bilirubin Direct 0.1 mg/dL (0-0.2); Bilirubin Total 0.3 mg/dL (0.2-1.0); Magnesium 2.2 mg/dL (1.8-2.4); Potassium 3.8 mmol/L (3.5-5.1); Protein, Total 6.5 g/dL (6.4-8.2); Troponin (Emerg Dept Use Only) 0.02 ng/mL (0.0-0.045)
[2021-06-24] MEDS ORDERED: METOPROLOL TARTRATE 5 MG/5 ML INJ IV ONE (19:19)
--- NOTE | 2021-06-24 19:20 | RAD REPORT ---
EXAM DESCRIPTION: RAD - Chest Single View - 06/24/2021 7:00 pm CLINICAL HISTORY: SOB COMPARISON: May 08 TECHNIQUE: AP portable chest image was obtained 06/24/2021 7:00 pm . FINDINGS: Interstitial markings are prominent. No dense consolidation or mass. Pacemaker has been pl aced since the May 08 imaging. Cardiomegaly is present. Central vasculature is minimally promine nt, decreased compared to the prior study. No measurable pleural effusion and no pneumothorax. No acu te bony abnormality seen. No acute aortic findings suspected. IMPRESSION: Chest findings suggest a mild failure or volume overload. Findings are less prominent th an seen May 08.
--- NOTE | 2021-06-24 19:52 | EDPHYS ---
Physician Documentation [facility] Name: Nhung Munson Age: 70 yrs Sex: Female : 1950 Arrival Date: 06/24/2021 Time: 17:44 Bed 16 Private MD: ED Physician Frankie Cummings HPI: 06/24 18:15 This 70 yrs old Female presents to ER via EMS with complaints of Weakness, cp Shortness Of Breath. 18:15 The patient presents to the emergency department with weakness of the entire body, cp generalized weakness, that is moderate. Onset: The symptoms/episode began/occurred gradually. Patient's baseline: Neuro: alert and fully oriented, Motor: no deficits, Ambulation: walks with assist only, uses walker, Speech: normal. 18:15 The patient has shortness of breath at rest. cp 18:15 Duration: The symptoms are continuous, and are steadily getting worse. The patient's cp shortness of breath is aggravated by exertion, supine position. Patient reports she has been using husbands prescribed home oxygen due to increasing shortness of breath. Historical: - Allergies: 17:48 Amoxicillin; ll1 17:48 Bactrim DS; ll1 17:48 Demerol; ll1 - PMHx: 17:48 Atrial Fib; Diabetes - IDDM; High Cholesterol; Hypertension; Renal Problems; ll1 - PSHx: 17:48 None; ll1 - Immunization history:: Client reports receiving the 2nd dose of the Covid vaccine. ROS: 18:20 Constitutional: Negative for body aches, chills, fever, poor PO intake. cp 18:20 Eyes: Negative for injury, pain, redness, and discharge. cp 18:20 ENT: Negative for ear pain, sore throat, difficulty swallowing, difficulty handling secretions. 18:20 Cardiovascular: Positive for edema, Negative for chest pain, palpitations. 18:20 Respiratory: Positive for orthopnea, shortness of breath, at rest. Negative for cough, wheezing. 18:20 Abdomen/GI: Negative for abdominal pain, nausea, vomiting, and diarrhea. 18:20 Neuro: Positive for general weakness, Negative for altered mental status, headache, numbness, syncope. 18:20 All other systems are negative. Exam: 18:02 ECG was reviewed by the Attending Physician. cp 18:25 Constitutional: The patient appears in no acute distress, alert, awake, cp non-diaphoretic, non-toxic, well developed, well nourished, obese. 18:25 Head/Face: Normocephalic, atraumatic. cp 18:25 Eyes: Periorbital structures: appear normal, Conjunctiva: normal, no exudate, no cp injection, Sclera: no appreciated abnormality, Lids and lashes: appear normal, bilaterally. 18:25 ENT: External ear(s): are unremarkable, Nose: is normal, Mouth: Lips: moist, Oral mucosa: pink and intact, moist, Posterior pharynx: Airway: no evidence of obstruction, patent. 18:25 Neck: ROM/movement: is normal, is supple, without pain, no range of motions limitations, no nuchal rigidity. 18:25 Chest/axilla: Inspection: normal. 18:25 Cardiovascular: Rate: tachycardic, Rhythm: irregular, Edema: marked edema of lower legs, JVD: is not appreciated. 18:25 Respiratory: Respirations: normal, no use of accessory muscles, no retractions, labored breathing, is not present, Breath sounds: decreased breath sounds, that are mild, throughout, stridor, is not appreciated, wheezing: is not appreciated. 18:25 Abdomen/GI: Inspection: obese Palpation: abdomen is soft and non-tender, in all quadrants. 18:25 Back: pain, is absent, ROM is normal. 18:25 Skin: cellulitis, is not appreciated, no rash present. 18:25 Neuro: Orientation: to person, place \\T\\ time. Mentation: is normal, Cerebellar function: is grossly normal, Motor: moves all fours, strength is normal, Sensation: is normal. Vital Signs: 17:45 BP 131 / 95; Pulse 67; Resp 20; Temp 98.2; Pulse Ox 95% on R/A; Weight 136.08 kg; ll1 Height 5 ft. 1 in. (154.94 cm); Pain 0/10; 17:56 Pulse 127 MON; ll1 19:03 BP 133 / 94; Pulse 124; Resp 19; ll1 21:34 BP 152 / 98; Pulse 118; Resp 18; Temp 98.9(O); Pulse Ox 98% on R/A; Pain 0/10; ms4 17:45 Body Mass Index 56.68 (136.08 kg, 154.94 cm) ll1 19:03 HR 102-126 ll1 NIH Stroke Scale Scores: 20:15 NIHSS Score: 0 ms4 MDM: 18:10 Patient medically screened. cp 19:45 Data reviewed: vital signs, nurses notes, lab test result(s), EKG, radiologic studies, cp plain films. 19:45 Test interpretation: by ED physician or midlevel provider: ECG, plain radiologic cp studies. 06/24 18:13 Order name: Basic Metabolic Panel cp 06/24 18:13 Order name: CBC with Diff cp 06/24 18:13 Order name: LFT's cp 06/24 18:13 Order name: Magnesium cp 06/24 18:13 Order name: NT PRO-BNP; Complete Time: 18:55 cp 06/24 18:55 Interpretation: Abnormal: NT PRO-BNP 3380. cp 06/24 18:13 Order name: PT-INR; Complete Time: 18:55 cp 06/24 18:13 Order name: Troponin (emerg Dept Use Only); Complete Time: 18:55 cp 06/24 18:13 Order name: Urine Microscopic Only cp 06/24 18:13 Order name: Procalcitonin; Complete Time: 19:40 cp 06/24 18:13 Order name: Lactate cp 06/24 18:13 Order name: Blood Culture Adult (2) cp 06/24 18:14 Order name: Basic Metabolic Panel; Complete Time: 18:55 EDMS 06/24 18:56 Interpretation: Normal except: NA 148; CO2 37; GLUC 142; BUN 38; CRE 1.80; GFR 28. cp 06/24 18:14 Order name: CBC with Automated Diff; Complete Time: 18:55 EDMS 06/24 18:56 Interpretation: Normal except: RBC 3.23; HGB 9.9; HCT 30.2; RDW 15.7; MPV 8.4; LYM% cp 10.3; LYMA 0.6; MN% 14.6. 06/24 18:14 Order name: Liver (Hepatic) Function; Complete Time: 18:55 EDMS 06/24 17:55 Order name: EKG; Complete Time: 17:56 ll1 06/24 17:55 Order name: EKG - Nurse/Tech; Complete Time: 17:56 ll1 06/24 18:13 Order name: XRAY Chest (1 view); Complete Time: 19:40 cp 06/24 19:41 Interpretation: Report review. cp 06/24 18:13 Order name: Cardiac monitoring; Complete Time: 19:20 cp 06/24 18:13 Order name: IV Saline Lock; Complete Time: 18:52 cp 06/24 18:13 Order name: Labs collected and sent; Complete Time: 18:52 cp 06/24 18:13 Order name: O2 Per Protocol; Complete Time: 18:52 cp 06/24 18:13 Order name: O2 Sat Monitoring; Complete Time: 18:52 cp 06/24 18:13 Order name: Urine Dipstick-Ancillary (obtain specimen); Complete Time: 19:20 cp 06/24 18:14 Order name: Magnesium; Complete Time: 18:55 EDMS 06/24 18:41 Order name: Urine Dipstick-Ancillary EDMS 06/24 19:30 Order name: COVID-19 (Coronavirus) Document "Date of Onset" if Symptomatic em 06/24 19:59 Order name: SARS-COV-2 RT PCR; Complete Time: 21:33 EDMS 06/24 18:13 Order name: Cath; Complete Time: 19:19 cp EC:02 Rate is 127 beats/min. Rhythm is irregular. QRS interval is prolonged at 140 msec. QT cp interval is normal. Interpreted by me. Reviewed by me. Administered Medications: 19:03 Drug: Lopressor (metoprolol) 5 mg Route: IVP; Site: right antecubital; ll1 20:09 Drug: Lasix (furosemide) 40 mg Route: IVP; Site: right antecubital; ms4 Disposition Summary: 06/24/21 19:51 Hospitalization Ordered Hospitalization Status: Inpatient Admission cp Provider: Jesús Rabago cp Location: Telemetry/MedSurg (Inpatient) cp Condition: Stable cp Problem: new cp Symptoms: have improved cp Bed/Room Type: Standard Room Assignment: 430(06/24/21 21:27) cg Diagnosis - Unspecified combined systolic (congestive) and diastolic (congestive) heart failure cp - Unspecified atrial fibrillation cp - Dyspnea cp Forms: - Medication Reconciliation Form cp - SBAR form cp NIH Stroke Scale - NIH Stroke Score Date: 06/24/2021 Time: 20:15 Total Score = 0 1a. Level of Consciousness (LOC) - 0(Alert) 1b. Level of Consciousness (LOC) (Month \\T\\ Age) - 0(Both) 1c. LOC Commands (Open \\T\\ Closes Eyes/It Coordinator) - 0(Both) 2. Best Gaze (Lateral Gaze Paresis) - 0(Normal) 3. Visual Field Loss - 0(No visual loss) 4. Facial Palsy - 0(Normal) 5a. Left Arm: Motor (10-second hold) - 0(No drift) 5b. Right Arm: Motor (10-second hold) - 0(No drift) 6a. Left Leg: Motor (5-second hold - always test supine) - 0(No drift) 6b. Right Leg: Motor (5-second hold - always test supine) - 0(No drift) 7. Limb Ataxia (finger/nose \\T\\ heel/monteiro - test with eyes open) - 0(Absent) 8. Sensory Loss (pinprick arms/legs/face) - 0(Normal) 9. Best Language: Aphasia (description/naming/reading) - 0(No aphasia) 10. Dysarthria (speech clarity - read or repeat words) - 0(Normal) 11. Extinction and Inattention (visual/tactile/auditory/spatial/personal) - 0(No abnormality) Initials: ms4 Addendum: 06/26/2021 09:58 Co-signature as Attending Physician, Frankie Cummings MD I agree with the shailesh assessment and plan of care. Signatures: Dispatcher [employer] Frankie Quintana MD MD cha Page, Corey, PA PA cp Garcia, Cindy, JAZMYN ELDRIDGE cg Kaz Odom RN RN ll1 Jesús Rabago PA PA ej Stroud, Mikaela, RN RN ms4 Corrections: (The following items were deleted from the chart) 06/24 19:59 19:31 CORONAVIRUS ordered. EDIA EDMS 20:21 19:51 cp cg 20:21 20:21 429 cg cg 21:27 20:21 cg cg
--- NOTE | 2021-06-24 19:52 | ER ---
Nurse's Notes [facility] Name: Nhung Munson Age: 70 yrs Sex: Female : 1950 Arrival Date: 06/24/2021 Time: 17:44 Bed 16 Private MD: Diagnosis: Unspecified combined systolic (congestive) and diastolic (congestive) heart failure;Unspecified atrial fibrillation;Dyspnea Presentation: 06/24 17:45 Chief complaint: Patient states: Called EMS for weakness, SOB with exertion, nausea. ll1 Last visit here we life flighted her to [place] and she had a pacemaker implanted. Was told recently she has COPD also. Coronavirus screen: Vaccine status: Patient reports receiving the 2nd dose of the covid vaccine. Client denies travel out of the [place] in the last 14 days. difficulty breathing, nausea, shortness of breath, Client presents with at least one sign or symptom that may indicate coronavirus-19. Standard/surgical mask placed on the client. Ebola Screen: Patient denies travel to an Ebola-affected area in the 21 days before illness onset. No acute neurological deficit is noted. Initial Sepsis Screen: Does the patient meet any 2 criteria? No. Patient's initial sepsis screen is negative. Does the patient have a suspected source of infection? No. Patient's initial sepsis screen is negative. Risk Assessment: Do you want to hurt yourself or someone else? Patient reports no desire to harm self or others. Onset of symptoms is unknown. 17:45 Method Of Arrival: EMS: [facility] ll1 17:45 Acuity: BACILIO 2 ll1 Stroke Activation: Symptom onset > 6 hours Physician: Stroke Attending; Name: ; Notified At: ; Arrived At: Physician: Chief Stroke Resident; Name: ; Notified At: ; Arrived At: Physician: Stroke Resident; Name: ; Notified At: ; Arrived At: Physician: ED Attending; Name: ; Notified At: ; Arrived At: Physician: ED Resident; Name: ; Notified At: ; Arrived At: Historical: - Allergies: 17:48 Amoxicillin; ll1 17:48 Bactrim DS; ll1 17:48 Demerol; ll1 - PMHx: 17:48 Atrial Fib; Diabetes - IDDM; High Cholesterol; Hypertension; Renal Problems; ll1 - PSHx: 17:48 None; ll1 - Immunization history:: Client reports receiving the 2nd dose of the Covid vaccine. Screenin:17 Abuse screen: Denies threats or abuse. Denies injuries from another. Nutritional ms4 screening: No deficits noted. Tuberculosis screening: No symptoms or risk factors identified. Fall Risk No fall in past 12 months (0 pts). Secondary diagnosis (15 points) impaired mobility, IV access (20 points). Ambulatory Aid- None/Bed Rest/Nurse Assist (0 pts). Gait- Weak (10 pts.). Mental Status- Oriented to own ability (0 pts). Total Ivan Fall Scale indicates High Risk Score (45 or more points). Fall prevention measures have been instituted. Placed Close to Nursing Station 1:1 Attendant Assigned. Assessment: 20:15 VAN Scoring: Arm Drift: Patients demonstrates NO arm weakness. Patient is VAN Negative. ms4 Visual Disturbance: No visual disturbance noted. Aphasia: No aphasia noted. Neglect: No neglect noted. Patient has been NPO before screening. The patient is alert, and able to follow commands. The patient does not exhibit slurred or garbled speech. The patient is not exhibiting difficulty speaking. The patient does not exhibit difficulty understanding words. The patient is able to swallow own secretions with no drooling or need for suction. Patient tolerated one teaspoon of water. No drooling, immediate coughing, gurgling, or clearing of the throat was noted. The patient tolerated 90mL of water. No drooling, immediate coughing, gurgling, or clearing of the throat was noted. The patient passed the bedside swallow screening. Oral medications may be given as ordered. Contact Physician for further diet orders. Provider notified of bedside swallow screening results: Frankie CHOI. Pain: Denies pain. Neuro: Reports weakness in generalized since 2 days Denies blurred vision difficulty swallowing, paresthesias numbness photophobia. Cardiovascular: Reports palpitations, shortness of breath, Rhythm is Respiratory: Reports shortness of breath Breath sounds are diminished bilaterally. 21:35 Reassessment: Patient appears in no apparent distress at this time. No changes from ms4 previously documented assessment. Patient and/or family updated on plan of care and expected duration. Pain level reassessed. Patient is alert, oriented x 3, equal unlabored respirations, skin warm/dry/pink. attempted to call report. nurse not ready for report at this time. nurse to call back. 21:51 Reassessment: REPORT GIVEN TO CHELSY. PATIENT TO BE [facility]SP[facility] TO [facility]. General: ms4 Appears in no apparent distress. Behavior is calm, cooperative, appropriate for age. Vital Signs: 17:45 BP 131 / 95; Pulse 67; Resp 20; Temp 98.2; Pulse Ox 95% on R/A; Weight 136.08 kg; ll1 Height 5 ft. 1 in. (154.94 cm); Pain 0/10; 17:56 Pulse 127 MON; ll1 19:03 BP 133 / 94; Pulse 124; Resp 19; ll1 21:34 BP 152 / 98; Pulse 118; Resp 18; Temp 98.9(O); Pulse Ox 98% on R/A; Pain 0/10; ms4 17:45 Body Mass Index 56.68 (136.08 kg, 154.94 cm) ll1 19:03 HR 102-126 ll1 NIH Stroke Scale Scores: 20:15 NIHSS Score: 0 ms4 ED Course: 17:44 Patient arrived in ED. ll1 17:48 Triage completed. ll1 17:48 Arm band placed on Patient placed in an exam room, on a stretcher. ll1 17:49 Maintain EMS IV. Dressing intact. Good blood return noted. Site clean \\T\\ dry. Gauge \\T\\ ll 1 site: 20 G R AC. 17:51 Frankie Jansen PA is PHCP. cp 17:51 Francoise Esquivel MD is Attending Physician. cp 18:59 XRAY Chest (1 view) In Process Unspecified. EDMS 19:20 Basic Metabolic Panel Sent. ms4 19:20 CBC with Diff Sent. ms4 19:20 LFT's Sent. ms4 19:20 Magnesium Sent. ms4 19:40 Frankie Cummings MD is Attending Physician. cp 19:42 COVID-19 (Coronavirus) Document "Date of Onset" if Symptomatic Sent. ms4 19:51 Jesús Rabago PA is Hospitalizing Provider. cp Administered Medications: 19:03 Drug: Lopressor (metoprolol) 5 mg Route: IVP; Site: right antecubital; ll1 20:09 Drug: Lasix (furosemide) 40 mg Route: IVP; Site: right antecubital; ms4 Outcome: 19:51 Decision to Hospitalize by Provider. cp 21:58 Patient left the ED. ms4 NIH Stroke Scale - NIH Stroke Score Date: 06/24/2021 Time: 20:15 Total Score = 0 1a. Level of Consciousness (LOC) - 0(Alert) 1b. Level of Consciousness (LOC) (Month \\T\\ Age) - 0(Both) 1c. LOC Commands (Open \\T\\ Closes Eyes/Telegrapher Agent) - 0(Both) 2. Best Gaze (Lateral Gaze Paresis) - 0(Normal) 3. Visual Field Loss - 0(No visual loss) 4. Facial Palsy - 0(Normal) 5a. Left Arm: Motor (10-second hold) - 0(No drift) 5b. Right Arm: Motor (10-second hold) - 0(No drift) 6a. Left Leg: Motor (5-second hold - always test supine) - 0(No drift) 6b. Right Leg: Motor (5-second hold - always test supine) - 0(No drift) 7. Limb Ataxia (finger/nose \\T\\ heel/monteiro - test with eyes open) - 0(Absent) 8. Sensory Loss (pinprick arms/legs/face) - 0(Normal) 9. Best Language: Aphasia (description/naming/reading) - 0(No aphasia) 10. Dysarthria (speech clarity - read or repeat words) - 0(Normal) 11. Extinction and Inattention (visual/tactile/auditory/spatial/personal) - 0(No abnormality) Initials: ms4 Signatures: Dispatcher [employer] EDMS Frankie Jansen PA PA cp Lewis, Lynsay, RN RN ll1 Opal King RN RN ms4 Corrections: (The following items were deleted from the chart) 17:57 17:45 Acuity: BACILIO 3 ll1 ll1
[2021-06-24] MEDS ORDERED: FUROSEMIDE 40 MG/4 ML VIAL ONE (20:34)
--- NOTE | 2021-06-24 22:27 | P.HP ---
Certification for Inpatient Patient admitted to: Inpatient With expected LOS: <2 Midnights Patient will require the following post-hospital care: None Practitioner: I am a practitioner with admitting privileges, knowledge of patient current condition, hospital course, and medical plan of care. Services: Services provided to patient in accordance with Admission requirements found in Title 42 Section 412.3 of the Code of Federal Regulations <Jesús Rabago - Last Filed: 06/24/21 22:59> Patient History Date of Service: 06/24/21 Reason for admission: CHF exacerbation History of Present Illness: Ms. Munson is a 70 yo F with CHF, DM, CKD4, HLD, hypothyroidism, afib on chronic anticoagulation and HTN who presents with three days of increased SOB, SIMENTAL and weakness. She recently had a pacemaker placed and then was admitted to inpatient rehab. At that time she was also diagnosed with COPD. She was on O2 while in rehab. She was discharged from rehab with home health a few days ago. Reports lower extremity edema. Denies palpitations. Received IV lopressor and lasix in the ED for elevated heart rate and SOB. CXR IMPRESSION: Chest findings suggest a mild failure or volume overload. Findings are less prominent than seen May 08. - Past Medical/Surgical History Diabetic: Yes -: Diabetes mellitus type 2-insulin dependent -: Hypertension -: Afib -: Obesity -: Hyperlipidemia -: Chronic renal disease stage IV -: Cancer uterine 3years ago -: Degenerative joint disease of the hip -: Chronic diastolic congestive heart failure -: Tubal ligation -: Hysterectomy Psychosocial/ Personal History: She is of 49 years, has 4 children, she does not work, lives at home with her . - Family History Father -: Kidney disease Mother -: Diabetes - Social History Alcohol use: No CD- Drugs: No Caffeine use: Yes <Jesús Rabago - Last Filed: 06/24/21 22:59> Date of Service: 06/24/21 <Preston Driscoll - Last Filed: 07/01/21 02:26> Allergies amoxicillin [Amoxicillin] Allergy (Intermediate, Verified 12/27/11 05:36) Hives/Rash sulfamethoxazole [From Bactrim] Allergy (Intermediate, Verified 12/27/11 05:36) Hives/Rash trimethoprim [From Bactrim] Allergy (Intermediate, Verified 12/27/11 05:36) Hives/Rash Home Medications: Allopurinol 100 mg PO DAILY 06/23/20 Apixaban [Eliquis *] 5 mg PO BID 06/23/20 Atorvastatin Calcium 20 mg PO BEDTIME 06/23/20 Carvedilol [Coreg] 12.5 mg PO BID 06/23/20 Cholecalciferol (Vitamin D3) [Vitamin D3] 3,000 unit PO DAILY 06/23/20 Ferrous Sulfate [Iron] 325 mg PO DAILY 06/23/20 Furosemide 80 mg PO BID 06/23/20 Loratadine [Claritin*] 10 mg PO DAILY 06/23/20 Melatonin 10 mg PO BEDTIME 06/24/21 Fluconazole [Diflucan] 150 mg PO Q7D #6 tablet 06/28/21 Spironolactone [Aldactone] 25 mg PO BID #60 tab 06/28/21 Review of Systems 10-point ROS is otherwise unremarkable General: Weakness, As per HPI Eyes: Unremarkable ENT: Unremarkable Respiratory: Shortness of Breath, SOB with Excertion, As per HPI Cardiovascular: Edema, As per HPI Gastrointestinal: Nausea, As per HPI Genitourinary: Unremarkable Musculoskeletal: Unremarkable Integumentary: Unremarkable Neurological: Unremarkable Lymphatics: Unremarkable <Jesús Rabago - Last Filed: 06/24/21 22:59> Physical Examination - Vital Signs Temperature: 98.9 F Blood Pressure: 152/98 Pulse: 118 Respirations: 18 - Physical Exam General: Alert, In no apparent distress HEENT: Atraumatic, PERRLA, Mucous membr. moist/pink, EOMI, Sclerae nonicteric Neck: Supple, 2+ carotid pulse no bruit, No LAD, Without JVD or thyroid abnormality Respiratory: Normal air movement, Crackles/rales Cardiovascular: Normal S1 S2, No gallops, No rubs, No murmurs, Edema, Irregular heart rate/rhythm Gastrointestinal: Normal bowel sounds, No tenderness Musculoskeletal: No tenderness Integumentary: Skin breakdown Neurological: Normal speech, Normal strength at 5/5 x4 extr, Normal tone, Normal affect Lymphatics: No axilla or inguinal lymphadenopathy - Studies Laboratory Data (last 24 hrs) 06/24/21 17:55: PT 18.2 H, INR 1.58 06/24/21 17:55: WBC 6.20, Hgb 9.9 L, Hct 30.2 L, Plt Count 239 06/24/21 17:55: Sodium 148 H, Potassium 3.8, BUN 38 H D, Creatinine 1.80 H, Glucose 142 H, Magnesium 2.2, Total Bilirubin 0.3, AST 12 L, ALT 22, Alkaline Phosphatase 100 <Jesús Rabago - Last Filed: 06/24/21 22:59> Assessment and Plan - Problems (Diagnosis) (1) CHF (congestive heart failure) Status: Acute Qualifiers: Heart failure type: unspecified Heart failure chronicity: acute on chronic Qualified Code(s): I50.9 - Heart failure, unspecified (2) Atrial fibrillation Onset Date: 05/02/16 Status: Chronic (3) Chronic renal disease Onset Date: 05/02/16 Status: Chronic Qualifiers: Chronic kidney disease stage: stage 3 (moderate) (4) Diabetes mellitus Onset Date: 05/02/16 Status: Chronic Qualifiers: Diabetes mellitus type: type 2 Diabetes mellitus 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 insulin use: unspecified usp insulin use status Diabetes mellitus complication status: with kidney complications Diabetes mellitus complication detail: with chronic kidney disease Chronic kidney disease stage: unspecified stage Jay lified Code(s): E11.22 - Type 2 diabetes mellitus with diabetic chronic kidney disease (5) Hyperlipidemia Status: Chronic (6) Hypertension Onset Date: 05/02/16 Status: Chronic Qualifiers: Hypertension type: primary hypertension Qualified Code(s): I10 - Essential (primary) hypertension - Plan on tele, ECHO pending continue IV lasix, daily weights, O2 as needed continue home eliquis monitor hemoglobin reconcile and continue home medications sliding scale insulin, accuchecks, A1c pending Discharge Plan: Home Plan to discharge in: 48 Hours - Advance Directives Does patient have a Living Will: No Does patient have a Durable POA for Healthcare: No - Code Status/Comfort Care Code Status Assessed: Yes (full code ) Critical Care: No Time Spent Managing Pts Care (In Minutes): 70 <Jesús Rabago - Last Filed: 06/24/21 22:59> - Problems (Diagnosis) (1) Morbid obesity with BMI of 50.0-59.9, adult Status: Acute (2) Generalized weakness Status: Acute (3) CHF (congestive heart failure) Status: Acute Qualifiers: Heart failure type: unspecified Heart failure chronicity: acute on chronic Qualified Code(s): I50.9 - Heart failure, unspecified (4) Atrial fibrillation Onset Date: 05/02/16 Status: Chronic Qualifiers: (5) Degenerative joint disease (DJD) of hip Onset Date: 05/02/16 Status: Chronic (6) Diabetes mellitus Onset Date: 05/02/16 Status: Chronic Qualifiers: Diabetes mellitus type: type 2 Diabetes mellitus usp insulin use: unspecified 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 insulin use status Diabetes mellitus complication status: with kidney complications Diabetes mellitus complication detail: with chronic kidney disease Chronic kidney disease stage: unspecified stage Qualified Code(s): E11.22 - Type 2 diabetes mellitus with diabetic chronic kidney disease (7) Hyperlipidemia Status: Chronic Qualifiers: (8) Hypertension Onset Date: 05/02/16 Status: Chronic Qualifiers: Hypertension type: primary hypertension Qualified Code(s): I10 - Essential (primary) hypertension <DriscollDarrius statondanita Maksim - Last Filed: 07/01/21 02:26> Date of Service: 06/24/21 Subjective Agree with the HPI as mentioned above Review of Systems 10-point ROS is otherwise unremarkable Physical Examination - Vital Signs Reviewed - Physical Exam General: Alert, In no apparent distress, Oriented x3, Obese Respiratory: Diminished, Crackles/rales Cardiovascular: Regular rate/rhythm, Normal S1 S2, No murmurs Gastrointestinal: Normal bowel sounds, Soft and benign, Non-distended, No tenderness Musculoskeletal: No clubbing, No swelling, No tenderness Neurological: Sensation intact, Cranial nerves 3-12 intact - Studies Medications List Reviewed: Yes Assessment & Plan - Problems (Diagnosis) (1) Morbid obesity with BMI of 50.0-59.9, adult Current Visit: Yes Status: Acute (2) Generalized weakness Current Visit: Yes Status: Acute (3) CHF (congestive heart failure) Current Visit: Yes Status: Acute Qualifiers: Heart failure type: unspecified Heart failure chronicity: acute on chronic Qualified Code(s): I50.9 - Heart failure, unspecified (4) Atrial fibrillation Onset Date: 05/02/16 Current Visit: No Status: Chronic Qualifiers: (5) Degenerative joint disease (DJD) of hip Onset Date: 05/02/16 Current Visit: No Status: Chronic (6) Diabetes mellitus Onset Date: 05/02/16 Current Visit: No Status: Chronic Qualifiers: Diabetes mellitus type: type 2 Diabetes mellitus usp insulin use: unspecified usp insulin use status Diabetes mellitus complication status: with kidney complications Diabetes mellitus complication detail: with chronic kidney disease Chronic kidney disease stage: unspecified stage Qualified Code(s): E11.22 - Type 2 diabetes mellitus with diabetic chronic kidney disease (7) Hyperlipidemia Current Visit: No Status: Chronic Qualifiers: (8) Hypertension Onset Date: 05/02/16 Current Visit: No Status: Chronic Qualifiers: Hypertension type: primary hypertension Qualified Code(s): I10 - Essential (primary) hypertension - Plan Continue plan of care as mentioned below: 1. Echocardiogram pending 2. Strict blood pressure control in continue with diuresing 3. Physical therapy evaluation 4. Close outpatient cardiology follow 5. Aggressive diuresis 6. Strict I's and O's 7. Repeat CXR 8. Daily weights 9. Outpatient follow-up with bariatric surgery Discharge Plan: Home Plan to discharge in: Greater than 2 days - Advance Directives Does patient have a Living Will: No Does patient have a Durable POA for Healthcare: No - Code Status/Comfort Care Code Status Assessed: Yes Code Status: Full Code Critical Care: No Time Spent Managing PTS Care (In Minutes): 45 <Preston Driscoll - Last Filed: 07/01/21 02:26>
[2021-06-24] MEDS ORDERED: ONDANSETRON 4 MG/2 ML VIAL IV PRN (22:32)
[2021-06-24] MEDS ORDERED: IPRATROPIUM BROM 0.5MG/2.5ML NEB PRN (22:32)
[2021-06-24] MEDS: carvediloL 12.5 MG TAB PO SCH (23:49)
[2021-06-25] MEDS: carvediloL 12.5 MG TAB PO SCH ×2 (06:56→16:50)
[2021-06-25 07:31] LABS: Absolute Lymphocytes (CBC) 0.7 K/uL (0.7-4.9); Basophils % 0.9 % (0-1.3); Hematocrit 30.6 % (36.0-45.0); Lymphocytes % 8.8 % (15.3-44.8); MPV 8.6 fL (7.6-11.3); RBC Red Blood Cell Count 3.25 M/uL (3.86-4.86)
[2021-06-25] MEDS: APIXABAN 5 MG TABLET PO SCH ×2 (07:47→21:02)
[2021-06-25] MEDS: FUROSEMIDE 40 MG/4 ML VIAL IV SCH ×2 (07:47→16:50)
[2021-06-25 08:05] LABS: Bilirubin Total 0.3 mg/dL (0.2-1.0); Folic Acid, (Folate) 10.2 ng/mL (3.1-17.5); Magnesium 2.3 mg/dL (1.8-2.4); Potassium 3.7 mmol/L (3.5-5.1); Protein, Total 6.6 g/dL (6.4-8.2)
[2021-06-25 08:20] LABS: Thyroid Stimulating Hormone 4.82 uIU/mL (0.360-3.740)
[2021-06-25] MEDS: INSULIN -REGULAR HUMAN 50 UNIT/0.5 ML ML SQ SCH ×4 (08:38→21:02)
[2021-06-25] MEDS ORDERED: INFLUENZA VACCINE (for 6+ mo) 0.5 ML DOSE IMVAC ONE (10:00)
--- NOTE | 2021-06-25 16:44 | EKG ---
Test Date: 2021-06-24 Test Time: 17:55:12 Cuff Runner: CAITLIN MEASUREMENT RESULTS: Intervals: Rate: 127 WA: QRSD: 140 QT: 394 QTc: 572 Carney: P: WA: QRS: 91 T: -24 INTERPRETIVE STATEMENTS: Atrial fibrillation with rapid ventricular response with premature ventricular or aberrantly conducted complexes Rightward axis Nonspecific intraventricular block Cannot rule out Anteroseptal infarct, age undetermined Abnormal ECG Compared to ECG 05/08/2021 06:49:37 Ventricular premature complex(es) now present Right-axis deviation now present Myocardial infarct finding now present Electronically Signed On 06-25-21 16:41:15 CDT by Nehemias Brown
[2021-06-25] MEDS: ATORVASTATIN 40 MG TAB PO SCH (21:02)
[2021-06-25] MEDS: MELATONIN 5 MG TABLET PO PRN (22:03)
[2021-06-26] MEDS: carvediloL 12.5 MG TAB PO SCH ×2 (06:30→16:18)
[2021-06-26] MEDS: INSULIN -REGULAR HUMAN 50 UNIT/0.5 ML ML SQ SCH ×4 (07:30→20:37)
--- NOTE | 2021-06-26 07:50 | ECHO ---
HEIGHT: 5 ft 1 in WEIGHT: 308 lb 4.8 oz DATE OF STUDY: 06/25/[address]: Jesús Rabago 2-DIMENSIONAL: YES M.MODE: YES DOPPLER: YES COLOR FLOW: YES TDS: YES PORTABLE: NO DEFINITY: NO BUBBLE STUDY: NO DIAGNOSIS: VOLUME OVERLOAD CARDIAC HISTORY: CATHERIZATION: NO SURGERY: NO PROSTHETIC VALVE: NO PACEMAKER: YES MEASUREMENTS (cm) DIASTOLIC (NORMALS) SYSTOLIC (NORMALS) IVSd 1.3 (0.6-1.2) LA Diam 2.7 (1.9-4.0) LVEF 33% LVIDd 5.4 (3.5-5.7) LVIDs 4.5 (2.0-3.5) %FS 16% LVPWd 1.3 (0.6-1.2) Ao Diam 2.4 (2.0-3.7) 2 DIMENSIONAL ASSESSMENT: RIGHT ATRIUM: NORMAL LEFT ATRIUM: NORMAL RIGHT VENTRICLE: PACEMAKER LEFT VENTRICLE: LEFT VENTRICULAR HYPERTROPHY TRICUSPID VALVE: NORMAL MITRAL VALVE: NORMAL PULMONIC VALVE: NORMAL AORTIC VALVE: NORMAL PERICARDIAL EFFUSION: TRACE AORTIC ROOT: NORMAL LEFT VENTRICULAR WALL MOTION: SEVERE GLOBAL HYPOKINESIS. DOPPLER/COLOR FLOW: MILD TRICUSPID REGURGITATION. NORMAL RIGHT VENTRICULAR SYSTOLIC PRESSURE. COMMENTS: SEVERE GLOBAL HYPOKINESIS. MILD TRICUSPID REGURGITATION. NORMAL RIGHT VENTRICULAR SYSTOLIC PRESSURE. PERMANENT PACEMAKER IN RIGHT VENTRICLE APEX. LEFT VENTRICULAR HYPERTROPHY. TRACE EFFUSION. TECHNOLOGIST: Abdirahman OVIEDO
[2021-06-26] MEDS: FUROSEMIDE 40 MG/4 ML VIAL IV SCH ×2 (09:06→16:17)
[2021-06-26] MEDS: APIXABAN 5 MG TABLET PO SCH ×2 (09:06→20:37)
[2021-06-26] MEDS: ATORVASTATIN 40 MG TAB PO SCH (20:37)
[2021-06-26] MEDS: MELATONIN 5 MG TABLET PO PRN (20:37)
[2021-06-27] MEDS: carvediloL 12.5 MG TAB PO SCH ×2 (06:10→17:09)
[2021-06-27] MEDS: INSULIN -REGULAR HUMAN 50 UNIT/0.5 ML ML SQ SCH ×4 (07:21→20:36)
[2021-06-27] MEDS: APIXABAN 5 MG TABLET PO SCH ×2 (07:21→20:35)
[2021-06-27] MEDS: ACETAMINOPHEN 500 MG TAB PO PRN (08:52)
[2021-06-27] MEDS: FUROSEMIDE 40 MG/4 ML VIAL IV SCH ×2 (08:52→16:37)
[2021-06-27] MEDS: MELATONIN 5 MG TABLET PO PRN (20:35)
[2021-06-27] MEDS: ATORVASTATIN 40 MG TAB PO SCH (20:35)
[2021-06-27 22:33] VITALS: BMI 58.3
[2021-06-28] MEDS: carvediloL 12.5 MG TAB PO SCH (06:13)
[2021-06-28 06:23] LABS: Potassium 3.8 mmol/L (3.5-5.1)
[2021-06-28] MEDS: INSULIN -REGULAR HUMAN 50 UNIT/0.5 ML ML SQ SCH ×2 (07:30→12:21)
[2021-06-28] MEDS: APIXABAN 5 MG TABLET PO SCH (08:25)
[2021-06-28] MEDS: FUROSEMIDE 40 MG/4 ML VIAL IV SCH (08:26)
[2021-06-28 08:27] VITALS: BP 129/60
[2021-06-28 08:50] VITALS: TEMP 97.3
[2021-06-28 09:16] VITALS: O2SAT 95
--- NOTE | 2021-06-28 11:06 | P.PN ---
Subjective Date of Service: 06/25/21 Patient is being diuresed effectively. Patient oxygen saturations are improving. Patient still gets short of breath on any kind of movement. Will get physical therapy evaluation. Review of Systems 10-point ROS is otherwise unremarkable Physical Examination - Vital Signs Temperature: 97.3 F Blood Pressure: 129/60 Pulse: 65 Respirations: 20 Pulse Ox (%): 96 - Physical Exam General: Alert, In no apparent distress, Oriented x3, Obese Respiratory: Diminished, Crackles/rales Cardiovascular: Regular rate/rhythm, Normal S1 S2, No murmurs Gastrointestinal: Normal bowel sounds, Soft and benign, Non-distended, No tenderness Musculoskeletal: No clubbing, No swelling, No tenderness Neurological: Sensation intact, Cranial nerves 3-12 intact - Studies Medications List Reviewed: Yes Assessment & Plan - Problems (Diagnosis) (1) Morbid obesity with BMI of 50.0-59.9, adult Current Visit: Yes Status: Acute (2) Generalized weakness Current Visit: Yes Status: Acute (3) CHF (congestive heart failure) Current Visit: Yes Status: Acute Qualifiers: Heart failure type: unspecified Heart failure chronicity: acute on chronic Qualified Code(s): I50.9 - Heart failure, unspecified (4) Atrial fibrillation Onset Date: 05/02/16 Current Visit: No Status: Chronic Qualifiers: (5) Degenerative joint disease (DJD) of hip Onset Date: 05/02/16 Current Visit: No Status: Chronic (6) Diabetes mellitus Onset Date: 05/02/16 Current Visit: No Status: Chronic Qualifiers: Diabetes mellitus type: type 2 Diabetes mellitus longterm insulin use: unspecified longterm insulin use status Diabetes mellitus complication status: with kidney complications Diabetes mellitus complication detail: with chronic kidney disease Chronic kidney disease stage: unspecified stage Qualified Code(s): E11.22 - Type 2 diabetes mellitus with diabetic chronic kidney disease (7) Hyperlipidemia Current Visit: No Status: Chronic Qualifiers: (8) Hypertension Onset Date: 05/02/16 Current Visit: No Status: Chronic Qualifiers: Hypertension type: primary hypertension Qualified Code(s): I10 - Essential (primary) hypertension - Plan 1. Echocardiogram pending 2. Strict blood pressure control in continue with diuresing 3. Physical therapy evaluation 4. Close outpatient cardiology follow 5. Aggressive diuresis 6. Strict I's and O's 7. Repeat CXR 8. Daily weights 9. Outpatient follow-up with bariatric surgery Discharge Plan: Home Plan to discharge in: Greater than 2 days - Advance Directives Does patient have a Living Will: No Does patient have a Durable POA for Healthcare: No - Code Status/Comfort Care Code Status Assessed: Yes Code Status: Full Code Critical Care: No Time Spent Managing PTS Care (In Minutes): 45
--- NOTE | 2021-06-28 11:10 | P.PN ---
Date of Service: 06/26/21 Subjective Patient is feeling better. She has put out quite a bit urine. Clinically much improved. Review of Systems 10-point ROS is otherwise unremarkable Physical Examination - Vital Signs Reviewed - Physical Exam General: Alert, In no apparent distress, Oriented x3, Obese Respiratory: Diminished, Crackles/rales Cardiovascular: Regular rate/rhythm, Normal S1 S2, No murmurs Gastrointestinal: Normal bowel sounds, Soft and benign, Non-distended, No tenderness Musculoskeletal: No clubbing, No swelling, No tenderness Neurological: Sensation intact, Cranial nerves 3-12 intact Extremity: Diffuse edema Assessment & Plan - Problems (Diagnosis) (1) Morbid obesity with BMI of 50.0-59.9, adult Current Visit: Yes Status: Acute (2) Generalized weakness Current Visit: Yes Status: Acute (3) CHF (congestive heart failure) Current Visit: Yes Status: Acute Qualifiers: Heart failure type: unspecified Heart failure chronicity: acute on chronic Qualified Code(s): I50.9 - Heart failure, unspecified (4) Atrial fibrillation Onset Date: 05/02/16 Current Visit: No Status: Chronic Qualifiers: (5) Degenerative joint disease (DJD) of hip Onset Date: 05/02/16 Current Visit: No Status: Chronic (6) Diabetes mellitus Onset Date: 05/02/16 Current Visit: No Status: Chronic Qualifiers: Diabetes mellitus type: type 2 Diabetes mellitus care home insulin use: 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 Echocardiogram with systolic dysfunction with an ejection fraction of 33% 2. Strict blood pressure control in continue with diuresing 3. Physical therapy evaluation appreciated; patient ambulating a little bit the gets really tachypneic 4. Needs to continue seeing Cardiology as an outpatient 5. May change Lasix to p.o. in the morning 6. Strict I's and O's 7. Pulmonary edema improved 8. Daily weights 9. Outpatient follow-up with bariatric surgery Discharge Plan: Home Plan to discharge in: Greater than 2 days - Advance Directives Does patient have a Living Will: No Does patient have a Durable POA for Healthcare: No - Code Status/Comfort Care Code Status Assessed: Yes Code Status: Full Code Critical Care: No Time Spent Managing PTS Care (In Minutes): 45
--- NOTE | 2021-06-28 11:12 | P.PN ---
Date of Service: 06/27/21 Subjective Arranging home oxygen and patient also had a CPAP donated to her from the retirement that is not functioning properly. She is working with case management to try to get a new CPAP machine. Anticipate discharge today or in the morning. Review of Systems 10-point ROS is otherwise unremarkable Physical Examination - Vital Signs Reviewed - Physical Exam General: Alert, In no apparent distress, Oriented x3, Obese Respiratory: Diminished, Crackles/rales Cardiovascular: Regular rate/rhythm, Normal S1 S2, No murmurs Gastrointestinal: Normal bowel sounds, Soft and benign, Non-distended, No tenderness Musculoskeletal: No clubbing, No swelling, No tenderness Neurological: Sensation intact, Cranial nerves 3-12 intact Extremity: Diffuse edema Assessment & Plan - Problems (Diagnosis) (1) Morbid obesity with BMI of 50.0-59.9, adult Current Visit: Yes Status: Acute (2) Generalized weakness Current Visit: Yes Status: Acute (3) CHF (congestive heart failure) Current Visit: Yes Status: Acute Qualifiers: Heart failure type: unspecified Heart failure chronicity: acute on chronic Qualified Code(s): I50.9 - Heart failure, unspecified (4) Atrial fibrillation Onset Date: 05/02/16 Current Visit: No Status: Chronic Qualifiers: (5) Degenerative joint disease (DJD) of hip Onset Date: 05/02/16 Current Visit: No Status: Chronic (6) Diabetes mellitus Onset Date: 05/02/16 Current Visit: No Status: Chronic Qualifiers: Diabetes mellitus type: type 2 Diabetes mellitus fdc insulin use: unspecified fdc insulin use status Diabetes mellitus complication status: with kidney complications Diabetes mellitus complication detail: with chronic kidney disease Chronic kidney disease stage: unspecified stage Qualified Code(s): E11.22 - Type 2 diabetes mellitus with diabetic chronic kidney disease (7) Hyperlipidemia Current Visit: No Status: Chronic Qualifiers: (8) Hypertension Onset Date: 05/02/16 Current Visit: No Status: Chronic Qualifiers: Hypertension type: primary hypertension Qualified Code(s): I10 - Essential (primary) hypertension - Plan Continue with plan of care as mentioned below: 1. Echocardiogram with systolic dysfunction with an ejection fraction of 33% 2. Strict blood pressure control in continue with diuresing 3. Physical therapy evaluation appreciated; patient ambulating a little bit the gets really tachypneic 4. Needs to continue seeing Cardiology as an outpatient 5. May change Lasix to p.o. in the morning 6. Strict I's and O's 7. Pulmonary edema improved 8. Daily weights 9. Outpatient follow-up with bariatric surgery Discharge Plan: Home Plan to discharge in: Greater than 2 days - Advance Directives Does patient have a Living Will: No Does patient have a Durable POA for Healthcare: No - Code Status/Comfort Care Code Status Assessed: Yes Code Status: Full Code Critical Care: No Time Spent Managing PTS Care (In Minutes): 45
[2021-06-28] MEDS: ACETAMINOPHEN 500 MG TAB PO PRN (12:21)
--- NOTE | 2021-07-01 02:31 | P.DS ---
Discharge Date: 06/28/21 Disposition: [place] [facility] Discharge Condition: GOOD Reason for Admission: CHF exacerbation - Problems (1) Morbid obesity with BMI of 50.0-59.9, adult Status: Acute (2) Generalized weakness Status: Acute (3) CHF (congestive heart failure) Status: Acute Qualifiers: Heart failure type: unspecified Heart failure chronicity: acute on chronic Qualified Code(s): I50.9 - Heart failure, unspecified (4) Atrial fibrillation Onset Date: 05/02/16 Status: Chronic Qualifiers: (5) Degenerative joint disease (DJD) of hip Onset Date: 05/02/16 Status: Chronic (6) Diabetes mellitus Onset Date: 05/02/16 Status: Chronic Qualifiers: Diabetes mellitus type: type 2 Diabetes mellitus rn long term care insulin use: unspecified rn long term care insulin use status Diabetes mellitus complication status: with kidney complications Diabetes mellitus complication detail: with chronic kidney disease Chronic kidney disease stage: unspecified stage Qualified Code(s): E11.22 - Type 2 diabetes mellitus with diabetic chronic kidney disease (7) Hyperlipidemia Status: Chronic Qualifiers: (8) Hypertension Onset Date: 05/02/16 Status: Chronic Qualifiers: Hypertension type: primary hypertension Qualified Code(s): I10 - Essential (primary) hypertension Brief History of Present Illness: Ms. Munson is a 70 yo F with CHF, DM, CKD4, HLD, hypothyroidism, afib on chronic anticoagulation and HTN who presents with three days of increased SOB, SIMENTAL and weakness. She recently had a pacemaker placed and then was admitted to inpatient rehab. At that time she was also diagnosed with COPD. She was on O2 while in rehab. She was discharged from rehab with home health a few days ago. Reports lower extremity edema. Denies palpitations. Received IV lopressor and lasix in the ED for elevated heart rate and SOB. Hospital Course: Patient is not well during hospital stay. Patient's clinical symptoms have improved. Patient was diuresed effectively. Patient is ambulating. Patient is stable for discharge with home health. Patient will get a CPAP as an outpatient. Arrange for home oxygen. Vital Signs/Physical Exam: Temp Pulse Resp BP Pulse Ox 97.3 F 65 20 129/60 96 06/28/21 11:07 06/28/21 11:07 06/28/21 11:07 06/28/21 11:07 06/28/21 11:07 General: Alert, In no apparent distress, Oriented x3 Laboratory Data at Discharge: WBC 8.00 K/uL (4.3-10.9) D 06/25/21 06:56 Hgb 9.8 g/dL (12.0-15.0) L 06/25/21 06:56 Hct 30.6 % (36.0-45.0) L 06/25/21 06:56 Plt Count 255 K/uL (152-406) 06/25/21 06:56 PT 18.2 SECONDS (9.5-12.5) H 06/24/21 17:55 INR 1.58 06/24/21 17:55 Sodium 147 mmol/L (136-145) H 06/28/21 05:43 Potassium 3.8 mmol/L (3.5-5.1) 06/28/21 05:43 BUN 45 mg/dL (7-18) H 06/28/21 05:43 Creatinine 1.86 mg/dL (0.55-1.3) H 06/28/21 05:43 Glucose 145 mg/dL (74-106) H 06/28/21 05:43 Phosphorus 4.0 mg/dL (2.5-4.9) 06/25/21 06:56 Magnesium 2.3 mg/dL (1.8-2.4) 06/25/21 06:56 Total Bilirubin 0.3 mg/dL (0.2-1.0) 06/25/21 06:56 AST 12 U/L (15-37) L 06/25/21 06:56 ALT 21 U/L (12-78) 06/25/21 06:56 Alkaline Phosphatase 101 U/L (45-117) 06/25/21 06:56 Triglycerides 131 mg/dL (<150) 06/25/21 06:56 Cholesterol 126 mg/dL (<200) 06/25/21 06:56 HDL Cholesterol 41 mg/dL (40-60) 06/25/21 06:56 Cholesterol/HDL Ratio 3.07 06/25/21 06:56 Home Medications: Allopurinol 100 mg PO DAILY 06/23/20 Apixaban [Eliquis *] 5 mg PO BID 06/23/20 Atorvastatin Calcium 20 mg PO BEDTIME 06/23/20 Carvedilol [Coreg] 12.5 mg PO BID 06/23/20 Cholecalciferol (Vitamin D3) [Vitamin D3] 3,000 unit PO DAILY 06/23/20 Ferrous Sulfate [Iron] 325 mg PO DAILY 06/23/20 Furosemide 80 mg PO BID 06/23/20 Loratadine [Claritin*] 10 mg PO DAILY 06/23/20 Melatonin 10 mg PO BEDTIME 06/24/21 Fluconazole [Diflucan] 150 mg PO Q7D #6 tablet 06/28/21 Spironolactone [Aldactone] 25 mg PO BID #60 tab 06/28/21 New Medications: Spironolactone [Aldactone] 25 mg PO BID #60 tab Fluconazole [Diflucan] 150 mg PO Q7D #6 tablet Physician Discharge Instructions: OK TO DC IV AND DC HOME FOLLOW-UP WITH PRIMARY CARE PROVIDER IN 1-2 WEEKS FOLLOW-UP WITH CARDIOLOGY IN 1-2 WEEKS Follow-up with Pulmonary in 1-2 weeks to assist with CPAP arrangements RETURN TO THE ER IF symptoms worsen CALL or TEXT DR. RANKIN AT [phone] IF ANY QUESTIONS REGARDING HOSPITAL STAY. PLEASE CALL THE FLOOR AT [phone] IF ANY MEDICATION OR NURSING QUESTIONS. Diet: AHA Activity: Fall precautions Followup: [facility] [Provider Group] - 1-2 Weeks (Call to schedule an appointment ) Boston Almeida MD [ACTIVE - CAN ADMIT] - 1-2 Weeks (supervisor roller printing- call to schedule an appointment ) Krishna Thomas MD [Primary Care Provider] - 1-2 Weeks (PCP- call to schedule an appointment ) Time spent managing pt's care (in minutes): 35
== END 2021-06-28 15:20 | disposition home health service (06) | DRG 291 ==
LOC: ER 17:39 → ERHOLD 21:26 → 4TH 21:30
PROVIDERS: ADMIT Hospitalist; ATTEND Hospitalist
PROC: 5A09457 Assistance with Respiratory Ventilation, 24-96 Consecutive Hours, Continuous Positive Airway Pressure (ICD-10-PCS; principal; 2021-06-24)
DX: I13.0 Hypertensive heart and chronic kidney disease with heart failure and stage 1 through stage 4 chronic kidney disease, or unspecified chronic kidney disease (principal); I50.23 Acute on chronic systolic (congestive) heart failure; I48.20 Chronic atrial fibrillation, unspecified; Z68.43 Body mass index [BMI] 50.0-59.9, adult; N18.30 Chronic kidney disease, stage 3 unspecified; E11.22 Type 2 diabetes mellitus with diabetic chronic kidney disease; E66.01 Morbid (severe) obesity due to excess calories; M16.10 Unilateral primary osteoarthritis, unspecified hip; E03.9 Hypothyroidism, unspecified; E78.5 Hyperlipidemia, unspecified; Z79.01 Long term (current) use of anticoagulants; Z88.1 Allergy status to other antibiotic agents; Z88.5 Allergy status to narcotic agent; Z95.0 Presence of cardiac pacemaker; Z85.42 Personal history of malignant neoplasm of other parts of uterus; Z79.899 Other long term (current) drug therapy; Z98.51 Tubal ligation status; Z90.710 Acquired absence of both cervix and uterus; Z20.822 Contact with and (suspected) exposure to COVID-19
CPT/HCPCS: 36415; 71045; 80048; 80053; 80061; 80076; 81003; 82607; 82728; 82746; 82947; 83036; 83540; 83735; 83880; 84100; 84145; 84439; 84443; 84466; 84484; 85025; 85610; 93005; 93306; 94640; 94660; 94760; 96374; 96375; 97116; 97161; 97530; 99284; J1940; U0003

== ENCOUNTER 2022-12-31 17:47 | Inpatient (IN) | payer OTHER ==
--- OUTSIDE RECORDS SUMMARY | 2022-12-31 17:50 | XMS REPORT | Clinical Summary ---
:1950 Author Organization [facility] MD Still 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 08/07/2016 Sleep apnea 08/07/2016 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/06/2016 Cancer Staging: Clinical stage from 08/07: Stage IA (Primary) - Signed by Daly Lynn MD on 08/29/2016 Atrial fibrillation 08/06/2016 Diabetes mellitus 08/06/2016 Surgical History Surgery Date Site/Laterality Comments COLONOSCOPY Normal HYSTEROSCOPY 05/03/2016 TUBAL LIGATION Bilateral [place] LAPAROSCOPY TOT 08/15/2016 N/A Procedure: RO BOTIC ASSISTED HYSTERECTOMY >250 G TOTAL HYSTER ECTOMY; Surgeon: W/TUBE/OVAR Daly gupta MD; Location: MAIN O R; Service: COMMUNICATIONS TECHNICIAN - GYNECOLOGI C ONCOLOGY [place] SALPINGO-OOPHORECTOMY 08/15/2016 Bilateral Procedu re: ROBOTIC ASSISTED COMPL/PRTL UNI/BI SPX SALPINGO-O OPHORECTOMY; Surgeon: Daly Lynn MD; Location: [place]; Service: COMMUNICATIONS TECHNICIAN - G YNECOLOGIC ONCOLOGY [place] INTRAOP SENTINEL LYMPH 08/15/2016 Bilateral Proced ure: INTRAOPERATIVE NODE ID W/DYE INJECTION LYMPHATI C MAPPING; ROBOTIC SENTINEL LYMPH N ODE MAPPING AND LYMPH NODE B IOPSY; Surgeon: Daly Lynn MD; Location: [place]; Service: COMMUNICATIONS TECHNICIAN - G YNECOLOGIC ONCOLOGY Medical History Medical History Date Comments Hypertension 1999 Hyperlipidemia 1999 Irregular heart beat 2004 Afib Dependence on continuous positive airway pressure Does not use ventilation Diverticulitis 2012 Disorder of vagina January 2016 Vaginal bleeding 201 6 Menopause 2000 Anemia 04/2016 Blood transfusion, without reported diagnosis 04/2016 Arthritis 2000 Diabetes mellitus 2000 Herpes zoster 2005 Cancer Family History Medical History Relation Name Comments -Breast cancer Maternal Aunt Kiki Hypertension Maternal Grandmother Tawnya Stroke Maternal Grandmother Tawnya Stroke Mother Elina Relation Name Status Comments Maternal Aunt Kiki Maternal Grandmother Tawnya Mother Elina Social History Tobacco Use Types Packs/Day Years Used Date Smoking Tobacco: Never Smokeless Tobacco: Never Comments: has had secondhand smoke expos ure Alcohol Use Standard Drinks/Week Comments No 0 (1 standard drink = 0.6 oz pure alcoho l) Sex Assigned at Date Recorded Not on file Obstetrics History Para Term AB IAB SAB Ectopic Multiple Living Live Births 4 4 4 4 Date Outcome GA Total Labor/2nd/3rd Weight Sex Delivery Anes PTL Valeria A 1 A5 Name Clin Labor Term Term Term Term Comments 1) Screening: Pap Smear - denies abnorma l. Mammogram: last this year, denies abnormal. 2) HRT:denies Last Filed Vital Signs Not on file Plan of Treatment Health Maintenance Due Date Last Done Comments COVID-19 Vaccination (#1) 04/03/1951 Results Not on fileafter 12/31/2021 Insurance Payer Benefit Plan / Subscriber ID Effective Phone Address T ype Group Dates MEDICARE MEDICARE PART [id number] 2017-Pres [phone] [facility] Medicare A AND B ent [id number] [employer] [address] [facility] [place] [address] [facility] [id number] 2014-Pres [address] MEDICARE ent [id number] [place] [address] Advance Directives Code Status Date Activated Date Inactivated Comments Full Code 08/15/2016 10:41 AM 08/16/2016 1:29 PM Care Teams 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
--- OUTSIDE RECORDS SUMMARY | 2022-12-31 18:00 | XMS REPORT | Continuity of Care Document ---
:1950 Author Organization [facility] t Address [address] [place] [address] [address] [place] [address] Care Team Providers Name Role Phone Gustavo Thomas Primary Care Physician FABIAN LOPEZ Attending Clinician Unavailable FABIAN LOPEZ Attending Clinician Unavailable AFSHAN GARIBAY Attending Clinician Unavailable AFSHAN GARIBAY Attending Clinician Unavailable , [facility] Sleep Lab Bed Attending Clinician Unavailable Afshan Garibay MD Attending Clinician Doctor Unassigned, [place] Attending Clinician Unavailable Only, [facility] Test Attending Clinician Unavailable Nataliia Perez MD Attending Clinician NATALIIA PEREZ Attending Clinician Unavailable Giovanna ELDRIDGE, Lupe Attending Clinician Michael Raymond DO Attending Clinician Carissa POWERS, Acacia Attending Clinician MICHAEL RAYMOND Attending Clinician Unavailable Florentino Jenkins Attending Clinician Unavailable Preet POWERS, Ad Espinosa Attending Clinician OSVALDO HIDALGO Attending Clinician Unavailable ROMEL SHIPLEY Attending Clinician Unavailable [place] Ferrer MD Admitting Clinician Sherine Machado Admitting Clinician Unavailable Physician, No Primary or Family Admitting Clinician UnavailAd Workman MD Admitting Clinician ROMEL SHIPLEY Admitting Clinician Unavailable Payers Payer Name Policy Type Policy Number Effective Date Expiration Date S yury [facility] [id number] 2014 2024 00:00:00 00:00:00 MEDICARE PART A [id number] 2017 \\T\\ B 00:00:00 [facility] [id number] 2021 00:00:00 MEDICARE PART A [id number] 2017 AND B 00:00:00 [employer] [employer] [id number] 2014 SUPPLEMENT 00:00:00 Problems Condition Condition Condition Status Onset Resolution Last Treating Co mments Source Name Details Category Date Date Treatment Clinician Date Post-opera Post-opera Disease Active U T tive state tive state 3-16 He alth 00:00: 00 ESRD (end ESRD (end Disease Active 2020-09 Uni vers stage stage 0-04 ity of renal renal 00:00: [place] disease) disease) 00 Medica l Branch Abdominal Abdominal Disease Active Uni vers fibromatos fibromatos 9-20 it y of is is 00:00: [place] [id number] Medical Branch Atrial Atrial Disease Active Univers fibrillati fibrillati 9-20 it y of on on 00:00: [place] [address] Medical Branch DM DM Disease Active Univers (diabetes (diabetes 9-20 [place] of mellitus) mellitus) [place] [facility] [place] 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-20 ity of kidney kidney 00:00: [place] disease disease 00 Medical Branch Acute Acute Disease Active Univers congestive congestive 9-18 it y of heart heart 00:00: [place] failure, failure, 00 Medica l unspecifie unspecifie Br anch d heart d heart failure failure type type Complicati Complicati Disease Active U T on of 05-03 [facility] arterioven arterioven 00:00: ous ous 00 dialysis dialysis fistula fistula 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 7- Health disease disease 00:00: 00 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 6- Health disease disease 00:00: 00 Renal Renal Disease Active Univers impairment impairment 2-13 it y of 00:00: [place] 00 MD [facility] Morbid Morbid Disease Active Univers (severe) (severe) 907 ity of obesity obesity 00:00: [place] due to due to 00 excess excess [facility] Peripheral Peripheral Disease Active U nivers edema edema 6 ity of 00:00: [place] 00 MD [facility] Essential Essential Disease Active 2015-09 Uni vers (primary) (primary) 2- [place] of hypertensi 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 2- ity of use of use of 00:00: [place] anticoagul anticoagul 00 MD [facility] Sleep Sleep Disease Active 2015-09 Univers apnea apnea 2- ity of 00:00: [place] 00 MD [facility] Malignant Malignant Disease Active 2015-09 Uni vers neoplasm neoplasm 1-30 ity of of of 00:00: [place] endometriu endometriu 00 MD [facility] Atrial Atrial Disease Active 2015-09 Univers fibrillati fibrillati 1-30 it y of on on 00:00: [place] 00 MD [facility] Diabetes Diabetes Disease Active 2015-09 Unive rs mellitus mellitus 1- ity of 00:00: [place] 00 MD [facility] [place] SARS-CoV-2 Diagnosis Active 2021-11-05 [place] vaccinatio SARS-CoV-2 18:54:47 l n vaccinatio Guru n n Active 11/05/2021 [facility] Allergies, Adverse Reactions, Alerts Allergy Allergy Status Severity Reaction(s) Onset Inactive Treating Comm ents Source Name Type Date Date Clinician n Propensi Active ty to 5-16 adverse 00:00: reaction 00 to drug Amoxicil Propensi Active anna - ty to 3-09 Oral adverse 00:00: reaction 00 to drug Bactrim Propensi Active ty to 2-24 adverse 00:00: reaction 00 to drug AMOXICIL DRUG Active Anaphylaxis Uni vers ANNA INGREDI 9-18 ity of 00:00: [place] 00 Medical Branch SULFAMET DRUG Active Anaphylaxis Uni vers HOXAZOLE INGREDI 9-18 ity of 00:00: [place] 00 Medical Branch Amoxicil Propensi Active Anaphylaxis 2020-0 U nivers anna ty to 9-18 ity of adverse 00:00: [place] reaction 00 Medical s Branch Sulfamet Propensi Active Anaphylaxis 2020-0 U nivers hoxazole ty to 9-18 ity of adverse 00:00: [place] reaction 00 Medical s Branch sulfamet DA Active [facility] hoxazole 05-08 [place] 00:00: Health 00 are [facility] st trimetho DA Active U [facility] prim 05-08 [place] 00:00: Health are [facility] st amoxicil DA Active U [facility] anna 05-08 [place] 00:00: Health are [facility] st sulfamet DA Active U RASH [facility] hoxazole 05-08 [place] 00:00: Health 00 are [facility] st trimetho DA Active U RASH 0 [facility] prim 05-08 [place] 00:00: Health are [facility] st amoxicil DA Active U RASH 2020-0 [facility] anna 05-08 [place] 00:00: Health 00 are [facility] st Amoxicil Amoxicil Active Low Itching 2015-09 Memor ia anna anna 1-30 l 00:00: [place] 00 Amoxicil Propensi Active Itching 2015-09 Unive rs anna ty to 1-30 ity of adverse 00:00: [place] reaction 00 MD [facility] Sulfamet Propensi Active Itching 2015-09 Unive rs hoxazole ty to 10-06 ity of -Trimeth adverse 00:00: [place] oprim reaction 00 MD [facility] Penicill Allergy Active Itching 2015-09 UT ins to 10-06 Health substanc 00:00: e 00 Sulfamet Allergy Active Itching 2015-09 UT hoxazole to 10-06 Health -Trimeth substanc 00:00: oprim e 00 Family History Family Member Diagnosis Comments Start Date Stop Date Source Maternal grandmother Hypertension Un iversity of [facility] Maternal grandmother Stroke Univ ersity [facility] Natural mother Stroke [facility] Maternal aunt -Breast cancer Univers it of [facility] Social History Social Habit Start Date Stop Date Quantity Comments Source Exposure to Not sure [facility]-CoV-2 [place] [facility] (event) Branch Education 2021-05-25 2021-05-25 14 University of 00:00:00 00:00:00 [facility] Tobacco use and 2021-05-08 2021-05-08 Smokeless tobacco [facility] exposure 00:00:00 00:00:00 non-user Alcohol intake 2019-06-02 2019-06-02 Current [facility] 00:00:00 00:00:00 non-drinker of [facility] Tobacco Comment 2016-08-06 2016-08-06 has had Universit y of 00:00:00 00:00:00 secondhand smoke [place] [facility] Sex Ass[birth year] Universit y of 00:00:00 00:00:00 [facility] Smoking Status Start Date Stop Date Source Never smoker [facility] Medications Ordered Filled Start Stop Current Ordering Indication Dosage Frequency Signature Comments Components Source Medication Medication Date Date Medication? Clinician (SIG) Name Name Humalog No unit/mL KwikPen 8-04 (U-100) 00:00: Insulin 100 00 unit/mL subcutaneou s Humalog No unit/mL KwikPen 8-04 (U-100) 00:00: Insulin 100 00 unit/mL subcutaneou s allopurinol 2021-0 No 1mg 100 mg 7- tablet 00:00: 00 allopurinol 2021-0 No 1mg 100 mg - tablet 00:00: 00 Dose 2-0 No Unknown 7 00:00: 00 Dose 2-0 No Unknown 7 00:00: 00 Dose 2-0 No Unknown 7- 00:00: 00 Dose 2-0 No Unknown 7 00:00: 00 Dose 2-0 No Unknown 7 00:00: 00 Dose 2-0 No Unknown 7 00:00: 00 Dose 2021-0 No Unknown 7- 00:00: 00 Dose 2021-0 No Unknown 7 00:00: 00 Dose 2021-0 No Unknown 7 00:00: 00 Dose 2021-0 No Unknown 7 00:00: 00 Dose 2021-0 No Unknown 7- 00:00: 00 Dose 2021-0 No Unknown 7 00:00: 00 Dose 2021-0 No Unknown 7 00:00: 00 Dose 2021-0 No Unknown 7 00:00: 00 Dose 2021-0 No Unknown 7- 00:00: 00 Dose 2021-0 No Unknown 7 00:00: 00 Dose 2021-0 No Unknown 7- 00:00: 00 Dose 2021-0 No Unknown 7- 00:00: 00 Victoza 2021-0 No (18 3-Trena 0.6 6-18 mg/3 mg/0.1 mL 00:00: mL) (18 mg/3 00 mL) subcutaneou s pen injector Victoza 2021-0 No (18 3-Trena 0.6 6-18 mg/3 mg/0.1 mL 00:00: mL) (18 mg/3 00 mL) subcutaneou s pen injector Victoza 2021-0 No (18 3-Trena 0.6 6-01 mg/3 mg/0.1 mL 00:00: mL) (18 mg/3 00 mL) subcutaneou s pen injector atorvastati 2021-0 No 1mg n 20 mg 6-01 tablet 00:00: 00 furosemide 2021-0 No mg 40 mg 6-01 tablet 00:00: 00 Victoza 2-0 No (18 3-Trena 0.6 6-01 mg/3 mg/0.1 mL 00:00: mL) (18 mg/3 00 mL) subcutaneou s pen injector atorvastati 2021-0 No 1mg n 20 mg 6-01 tablet 00:00: 00 furosemide 2-0 No mg 40 mg 6-01 tablet 00:00: 00 Veltassa 2-0 No 1gram 8.4 gram 4-12 oral powder 00:00: packet 00 Dose 2-0 No Unknown 4-12 00:00: 00 Dose 2-0 No Unknown 4-12 00:00: 00 Dose 2-0 No Unknown 4-12 00:00: 00 Dose 2-0 No Unknown 4-12 00:00: 00 Dose 2-0 No Unknown 4-12 00:00: 00 Dose 2022-0 No Unknown 4-12 00:00: 00 Dose 2-0 No Unknown 4-12 00:00: 00 Dose 2-0 No Unknown 4-12 00:00: 00 Dose 2-0 No Unknown 4-12 00:00: 00 Dose 2022-0 No Unknown 4-12 00:00: 00 Dose 2-0 No Unknown 4-12 00:00: 00 Dose 2-0 No Unknown 4-12 00:00: 00 Dose 2-0 No Unknown 4-12 00:00: 00 Veltassa 2-0 No 1gram 8.4 gram 4-12 oral powder 00:00: packet 00 Dose 2-0 No Unknown 4-12 00:00: 00 Dose 2-0 No Unknown 4-12 00:00: 00 Dose 2022-0 No Unknown 4-12 00:00: 00 Dose 2022-0 No Unknown 4-12 00:00: 00 Dose 2-0 No Unknown 4-12 00:00: 00 Dose 2-0 No Unknown 4-12 00:00: 00 Dose 2-0 No Unknown 4-12 00:00: 00 Dose 2-0 No Unknown 4-12 00:00: 00 Dose 2-0 No Unknown 4-12 00:00: 00 Dose 2-0 No Unknown 4-12 00:00: 00 Dose 2022-0 No Unknown 4-12 00:00: 00 Dose 2022-0 No Unknown 4-12 00:00: 00 Dose 2022-0 No Unknown 4-12 00:00: 00 Victoza 2022-0 No (18 3-Trena 0.6 3-22 mg/3 mg/0.1 mL 00:00: mL) (18 mg/3 00 mL) subcutaneou s pen injector Victoza 2-0 No (18 3-Trena 0.6 3-22 mg/3 mg/0.1 mL 00:00: mL) (18 mg/3 00 mL) subcutaneou s pen injector Dose 2-0 No Unknown 3-10 00:00: 00 Dose 2022-0 No Unknown 3-10 00:00: 00 Dose 2022-0 No Unknown 3-10 00:00: 00 Dose 2022-0 No Unknown 3-10 00:00: 00 Dose 2022-0 No Unknown 3-09 00:00: 00 Dose 2022-0 No Unknown 3-09 00:00: 00 Dose 2022-0 No Unknown 3-09 00:00: 00 Dose 2022-0 No Unknown 3-09 00:00: 00 Dose 2022-0 No Unknown 3-09 00:00: 00 Dose 2022-0 No Unknown 3-09 00:00: 00 Dose 2022-0 No Unknown 3-09 00:00: 00 Dose 2022-0 No Unknown 3-09 00:00: 00 Dose 2022-0 No Unknown 3-09 00:00: 00 Dose 2022-0 No Unknown 3-09 00:00: 00 Dose 2022-0 No Unknown 3-09 00:00: 00 Dose 2022-0 No Unknown 3-09 00:00: 00 Dose 2022-0 No Unknown 3-09 00:00: 00 Dose 2022-0 No Unknown 3-09 00:00: 00 Dose 2022-0 No Unknown 3-09 00:00: 00 Dose 2022-0 No Unknown 3-09 00:00: 00 Dose 2022-0 No Unknown 3-09 00:00: 00 Dose 2022-0 No Unknown 3-09 00:00: 00 Dose 2022-0 No Unknown 3-09 00:00: 00 Dose 2022-0 No Unknown 3-09 00:00: 00 Dose 2022-0 No Unknown 3-09 00:00: 00 Dose 2022-0 No Unknown 3-09 00:00: 00 Dose 2022-0 No Unknown 3-09 00:00: 00 Dose 2022-0 No Unknown 3-09 00:00: 00 Dose 2022-0 No Unknown 3-09 00:00: 00 Dose 2022-0 No Unknown 3-09 00:00: 00 Dose 2022-0 No Unknown 3-09 00:00: 00 Dose 2022-0 No Unknown 3-09 00:00: 00 Dose 2022-0 No Unknown 3-09 00:00: 00 Dose 2022-0 No Unknown 3-09 00:00: 00 Dose 2022-0 No Unknown 3-09 00:00: 00 Dose 2022-0 No Unknown 3-09 00:00: 00 Dose 2022-0 No Unknown 3-09 00:00: 00 Dose 2022-0 No Unknown 3-09 00:00: 00 Dose 2022-0 No Unknown 3-09 00:00: 00 Dose 2022-0 No Unknown 3-09 00:00: 00 Dose 2022-0 No Unknown 3-09 00:00: 00 Dose 2022-0 No Unknown 3-09 00:00: 00 Dose 2022-0 No Unknown 3-09 00:00: 00 Dose 2022-0 No Unknown 3-09 00:00: 00 Dose 2022-0 No Unknown 3-09 00:00: 00 Dose 2022-0 No Unknown 3-09 00:00: 00 Dose 2022-0 No Unknown 3-09 00:00: 00 Dose 2022-0 No Unknown 3-09 00:00: 00 Dose 2022-0 No Unknown 3-09 00:00: 00 Dose 2022-0 No Unknown 3-09 00:00: 00 Dose 2022-0 No Unknown 3-09 00:00: 00 Dose 2022-0 No Unknown 3-09 00:00: 00 Dose 2022-0 No Unknown 3-09 00:00: 00 Dose 2022-0 No Unknown 3-09 00:00: 00 Dose 2022-0 No Unknown 3-09 00:00: 00 Dose 2022-0 No Unknown 3-09 00:00: 00 Dose 2022-0 No Unknown 3-09 00:00: 00 Dose 2022-0 No Unknown 3-09 00:00: 00 Dose 2022-0 No Unknown 3-09 00:00: 00 Dose 2022-0 No Unknown 3-09 00:00: 00 Dose 2022-0 No Unknown 3-09 00:00: 00 Dose 2022-0 No Unknown 3-09 00:00: 00 Dose 2022-0 No Unknown 3-09 00:00: 00 Dose 2022-0 No Unknown 3-09 00:00: 00 Dose 2022-0 No Unknown 3-09 00:00: 00 Dose 2022-0 No Unknown 3-09 00:00: 00 Dose 2022-0 No Unknown 3-09 00:00: 00 Dose 2022-0 No Unknown 3-09 00:00: 00 Dose 2022-0 No Unknown 3-09 00:00: 00 Dose 2022-0 No Unknown 3-09 00:00: 00 Dose 2022-0 No Unknown 3-09 00:00: 00 Dose 2022-0 No Unknown 3-09 00:00: 00 Dose 2022-0 No Unknown 3-09 00:00: 00 Dose 2022-0 No Unknown 3-09 00:00: 00 Dose 2022-0 No Unknown 3-09 00:00: 00 Dose 2022-0 No Unknown 3-09 00:00: 00 Dose 2022-0 No Unknown 3-09 00:00: 00 Dose 2022-0 No Unknown 3-09 00:00: 00 Dose 2022-0 No Unknown 3-09 00:00: 00 Dose 2022-0 No Unknown 3-09 00:00: 00 Dose 2022-0 No Unknown 3-09 00:00: 00 Dose 2022-0 No Unknown 3-09 00:00: 00 Dose 2022-0 No Unknown 3-09 00:00: 00 Dose 2022-0 No Unknown 3-09 00:00: 00 Dose 2022-0 No Unknown 3-09 00:00: 00 Dose 2022-0 No Unknown 3-09 00:00: 00 Dose 2022-0 No Unknown 3-09 00:00: 00 Dose 2022-0 No Unknown 3-09 00:00: 00 Dose 2022-0 No Unknown 3-09 00:00: 00 Dose 2022-0 No Unknown 3-09 00:00: 00 Dose 2022-0 No Unknown 3-09 00:00: 00 Dose 2021-0 No Unknown 3 00:00: 00 Dose 2021-0 No Unknown 3 00:00: 00 Dose 2021-0 No Unknown 3 00:00: 00 Dose 2021-0 No Unknown 3 00:00: 00 Dose 2021-0 No Unknown 11-13 00:00: 00 Dose 2021-0 No Unknown 3 00:00: 00 Dose 2021-0 No Unknown 11-13 00:00: 00 Dose 2021-0 No Unknown 3 00:00: 00 Dose 2021-0 No Unknown 3 00:00: 00 Dose 2021-0 No Unknown 3 00:00: 00 Dose 2021-0 No Unknown 11-13 00:00: 00 Dose 2021-0 No Unknown 11-13 00:00: 00 Dose 2021-0 No Unknown 11-13 00:00: 00 carvedilol Yes Take 25 mg M emoria (COREG) 25 3-01 by mouth l mg tablet 18:54: twice [place] 47 daily. furosemide Yes Take 40 mg M emoria (LASIX) 40 3-01 by mouth l mg tablet 18:54: twice [place] 47 daily. 40mg in AM, 20mg in PM daily INSULIN NPH Yes Inject 45 M emoria HUMAN 3-01 Units l ISOPHANE 18:54: under the Herm jules (NOVOLIN N 47 skin twice SUBCUTANEOU daily. 45 S) units in AM and 40 units at bedtime LIRAGLUTIDE Yes Inject 1.8 Memoria (VICTOZA 3-01 mg under l 2-TRENA 18:54: the skin [place] SUBCUTANEOU 47 daily. S) cholecalcif Yes Take 2,000 Memoria stefania, 3-01 Units by l vitamin D3, 18:54: mouth Jocy nn (VITAMIN 47 daily. D3) 2,000 units tab tablet apixaban Yes Take 2.5 Memor ia (ELIQUIS) 3-01 mg by l 2.5 mg 18:54: mouth [place] tablet 47 twice daily. cloNIDine Yes Take 0.2 Baldo hong HCl 3-01 mg by l (CATAPRES) 18:54: mouth Guru n 0.2 mg 47 twice tablet daily. ferrous Yes Take 37 mg Baldo hong gluconate 3-01 by mouth l (FERGON) 18:54: daily with Her guerra 325 mg 47 breakfast. tablet atorvastati Yes Take 20 mg Memoria n (LIPITOR) 3-01 by mouth l 20 mg 18:54: daily. [place] tablet 47 allopurinol Yes Take 100 Me moria (ZYLOPRIM) 3-01 mg by l 100 mg 18:54: mouth [place] tablet 47 daily. amiodarone Yes Take 200 Mem oria (PACERONE) 3-01 mg by l 200 mg 18:54: mouth [place] tablet 47 daily. fluticasone Yes Inhale 1 Me moria (FLONASE) 3-01 spray into l 50 18:54: each [place] mcg/spray 47 nostril nasal spray daily. loratadine Yes Take 10 mg M emoria (CLARITIN) 3-01 by mouth l 10 mg 18:54: daily. [place] tablet 47 spironolact No 1mg one 25 mg 2-24 tablet 00:00: 00 Dose 2021-0 No Unknown 2-24 00:00: 00 spironolact 0 No 1mg one 25 mg 2-24 tablet 00:00: 00 Dose 2021-0 No Unknown 2-24 00:00: 00 Dose 2021-0 No Unknown 1-14 00:00: 00 Dose 2021-0 No Unknown 1-14 00:00: 00 Novolin N 2020-09 No unit/mL NPH U-100 2-20 Insulin 00:00: isophane 00 100 unit/mL subcutaneou s susp allopurinol 2020-09 No 1mg 100 mg 2-20 tablet 00:00: 00 Novolin N 2020-09 No unit/mL NPH U-100 2-20 Insulin 00:00: isophane 00 100 unit/mL subcutaneou s susp allopurinol 2020-09 No 1mg 100 mg 2-20 tablet 00:00: 00 Victoza 2020-09 No (18 3-Trena 0.6 1-11 mg/3 mg/0.1 mL 00:00: mL) (18 mg/3 00 mL) subcutaneou s pen injector Dose 2020-09 No Unknown 11 00:00: 00 furosemide 2020-09 No mg 40 mg -11 tablet 00:00: 00 Victoza 2020-09 No (18 3-Trena 0.6 1-11 mg/3 mg/0.1 mL 00:00: mL) (18 mg/3 00 mL) subcutaneou s pen injector Dose 2020-09 No Unknown 11 00:00: 00 furosemide 2020-09 No mg 40 mg 1-11 tablet 00:00: 00 allopurinoL Yes 100mg Take 100 U nivers 100 mg 9-28 mg by ity of tablet 01:48: mouth [place] 05 daily. Medical Branch atorvastati Yes 10mg Take 10 mg Univers n 10 mg 9-28 by mouth ity of tablet 01:48: once now. 05 Give 1 Medical tablet by Branch mouth at bedtime docusate Yes 100mg Take 100 Univ ers (COLACE) 9-28 mg by ity of 100 mg 01:48: mouth 2 [place] capsule 05 (two) Medical times Branch daily. carvediloL Yes 25mg Take 25 mg U nivers (COREG) 25 9-28 by mouth ity o f mg tablet 01:48: once now. [place] as 05 Give 1 Medical tablet by Branch mouth every 12 hours for HTN melatonin 3 Yes 3mg Take 3 mg U nivers mg tablet -28 by mouth ity of 01:48: once now. 05 Give 1 Medical tablet by Branch mouth at bedtime for Insomnia insulin NPH Yes 40U inject 40 U nivers hum/reg 9-28 Units ity of insulin hm 01:48: [place] the [place] (NOVOLIN 05 skin. ( Medical 70/30 SC) insulin Branch Isophane and Regular) Inject 40 units SC before meals for DM acetaminoph Yes Take by Uni vers en 9-28 mouth. ity of (TYLENOL) 01:48: [place] 325 mg Cap 05 Medical Branch allopurinoL Yes 100mg Take 100 U nivers 100 mg 9-28 mg by ity of tablet 01:48: mouth [place] 05 daily. Medical Branch atorvastati Yes 10mg Take 10 mg Univers n 10 mg 9-28 by mouth ity of tablet 01:48: once now. Give 1 Medical tablet by Branch mouth at bedtime docusate Yes 100mg Take 100 Univ ers (COLACE) 9-28 mg by ity of 100 mg 01:48: mouth 2 [place] capsule 05 (two) Medical times Shushan daily. carvediloL Yes 25mg Take 25 mg U nivers (COREG) 25 9-28 by mouth ity o f mg tablet 01:48: once now. [place] as Give 1 Medical tablet by Branch mouth every 12 hours for HTN melatonin 3 Yes 3mg Take 3 mg U nivers mg tablet 06-04 by mouth ity of 01:48: once now. Give 1 Medical tablet by Branch mouth at bedtime for Insomnia insulin NPH Yes 40U inject 40 U nivers hum/reg 9-28 Units ity of insulin hm 01:48: under the [place] (NOVOLIN 05 skin. ( Medical 70/30 SC) insulin Branch Isophane and Regular) Inject 40 units SC before meals for DM acetaminoph Yes Take by Uni vers en 06-04 mouth. ity of (TYLENOL) 01:48: [place] 325 mg Cap 05 Medical Branch allopurinoL Yes 100mg Take 100 U nivers 100 mg 9-28 mg by ity of tablet 01:48: mouth [place] 05 daily. Medical Branch atorvastati Yes 10mg Take 10 mg Univers n 10 mg 9-28 by mouth ity of tablet 01:48: once now. Give 1 Medical tablet by Branch mouth at bedtime docusate Yes 100mg Take 100 Univ ers (COLACE) 9-28 mg by ity of 100 mg 01:48: mouth 2 [place] capsule 05 (two) Medical times Shushan daily. carvediloL Yes 25mg Take 25 mg U nivers (COREG) 25 9-28 by mouth ity o f mg tablet 01:48: once now. [place] as 05 Give 1 Medical tablet by Branch mouth every 12 hours for HTN melatonin 3 Yes 3mg Take 3 mg U nivers mg tablet 9- by mouth ity of 01:48: once now. Give 1 Medical tablet by Branch mouth at bedtime for Insomnia insulin NPH Yes 40U inject 40 U nivers hum/reg 9-28 Units ity of insulin hm 01:48: under the [place] (NOVOLIN 05 skin. ( Medical 70/30 SC) insulin Branch Isophane and Regular) Inject 40 units SC before meals for DM acetaminoph Yes Take by Uni vers en 06-04 mouth. ity of (TYLENOL) 01:48: [place] 325 mg Cap 05 Medical Branch allopurinoL 0 Yes 100mg Take 100 U nivers 100 mg 9-28 mg by ity of tablet 01:48: mouth [place] 05 daily. Medical Branch atorvastati 0 Yes 10mg Take 10 mg Univers n 10 mg 9-28 by mouth ity of tablet 01:48: once now. Give 1 Medical tablet by Branch mouth at bedtime docusate Yes 100mg Take 100 Univ ers (COLACE) 9-28 mg by ity of 100 mg 01:48: mouth 2 [place] capsule 05 (two) Medical times Branch daily. carvediloL Yes 25mg Take 25 mg U nivers (COREG) 25 9-28 by mouth ity o f mg tablet 01:48: once now. [place] as 05 Give 1 Medical tablet by Branch mouth every 12 hours for HTN melatonin 3 Yes 3mg Take 3 mg U nivers mg tablet 9-28 by mouth ity of 01:48: once now. Give 1 Medical tablet by Branch mouth at bedtime for Insomnia insulin NPH Yes 40U inject 40 U nivers hum/reg 9-28 Units ity of insulin hm 01:48: under the [place] (NOVOLIN 05 skin. ( Medical 70/30 SC) insulin Branch Isophane and Regular) Inject 40 units SC before meals for DM acetaminoph Yes Take by Uni vers en 06-04 mouth. ity of (TYLENOL) 01:48: [place] 325 mg Cap 05 Medical Branch allopurinoL 0 Yes 100mg Take 100 U nivers 100 mg 9-28 mg by ity of tablet 01:48: mouth [place] 05 daily. Medical Branch atorvastati 0 Yes 10mg Take 10 mg Univers n 10 mg 9-28 by mouth ity of tablet 01:48: once now. Give 1 Medical tablet by Branch mouth at bedtime docusate Yes 100mg Take 100 Univ ers (COLACE) 9-28 mg by ity of 100 mg 01:48: mouth 2 [place] 05 (two) Medical times Shushan daily. carvediloL Yes 25mg Take 25 mg U nivers (COREG) 25 9-28 by mouth ity o f mg tablet 01:48: once now. Give 1 Medical tablet by Branch mouth every 12 hours for HTN melatonin 3 Yes 3mg Take 3 mg U nivers mg tablet 06-04 by mouth ity of 01:48: once now. Give 1 Medical tablet by Branch mouth at bedtime for Insomnia insulin NPH Yes 40U inject 40 U nivers hum/reg 9-28 Units ity of insulin hm 01:48: under the [place] (NOVOLIN 05 skin. ( Medical 70/30 SC) insulin Branch Isophane and Regular) Inject 40 units SC before meals for DM acetaminoph Yes Take by Uni vers en - mouth. ity of (TYLENOL) 01:48: [place] 325 mg Cap 05 Medical Branch allopurinoL Yes 100mg Take 100 U nivers 100 mg 9-28 mg by ity of tablet 01:48: mouth 05 daily. Medical Branch atorvastati Yes 10mg Take 10 mg Univers n 10 mg 9-28 by mouth ity of tablet 01:48: once now. Give 1 Medical tablet by Branch mouth at bedtime docusate Yes 100mg Take 100 Univ ers (COLACE) 9-28 mg by ity of 100 mg 01:48: mouth 2 [place] 05 (two) Medical times Shushan daily. carvediloL Yes 25mg Take 25 mg U nivers (COREG) 25 9-28 by mouth ity o f mg tablet 01:48: once now. Give 1 Medical tablet by Branch mouth every 12 hours for HTN melatonin 3 Yes 3mg Take 3 mg U nivers mg tablet 9- by mouth ity of 01:48: once now. Give 1 Medical tablet by Branch mouth at bedtime for Insomnia insulin NPH Yes 40U inject 40 U nivers hum/reg 9-28 Units ity of insulin hm 01:48: [place] the [place] (NOVOLIN 05 skin. ( Medical 70/30 SC) insulin Branch Isophane and Regular) Inject 40 units SC before meals for DM acetaminoph Yes Take by Uni vers en 06-04 mouth. ity of (TYLENOL) 01:48: [place] 325 mg Cap 05 Medical Branch allopurinoL Yes 100mg Take 100 U nivers 100 mg 9-28 mg by ity of tablet 01:48: mouth [place] 05 daily. Medical Branch atorvastati Yes 10mg Take 10 mg Univers n 10 mg - by mouth ity of tablet 01:48: once now. 05 Give 1 Medical tablet by Branch mouth at bedtime docusate Yes 100mg Take 100 Univ ers (COLACE) 9-28 mg by ity of 100 mg 01:48: mouth 2 [place] capsule 05 (two) Medical times Shushan daily. carvediloL Yes 25mg Take 25 mg U nivers (COREG) 25 - by mouth ity o f mg tablet 01:48: once now. [place] as 05 Give 1 Medical tablet by Branch mouth every 12 hours for HTN melatonin 3 Yes 3mg Take 3 mg U nivers mg tablet 06-04 by mouth ity of 01:48: once now. Give 1 Medical tablet by Branch mouth at bedtime for Insomnia insulin NPH Yes 40U inject 40 U nivers hum/reg 9-28 Units ity of insulin hm 01:48: [place] (NOVOLIN 05 skin. ( Medical 70/30 SC) insulin Branch Isophane and Regular) Inject 40 units SC before meals for DM acetaminoph Yes Take by Uni vers en 06-04 mouth. ity of (TYLENOL) 01:48: [place] 325 mg Cap 05 Medical Branch amiodarone 2020-0 2020- No 400mg Take 400 U nivers 400 mg 06-01 09-25 mg by ity of tablet 10:34: 00:00 mouth 2 [place] 06 :00 (two) Medical times Sh[place] daily. AMLODIPINE 2020- No 5mg 5 mg. Unive rs BESYLATE, 06-01 Tablet by ity of BULK, MISC 10:34: 00:00 mouth two [place] 06 :00 times a Medical day for Branch pulmonary Edema acetaminoph Yes 650mg 650 mg, Un uri en 06-01 Oral, ity of (TYLENOL) 01:44: Q6HPRN, [place] tablet 650 28 Starting Medic al mg on Thu Branch 05/31/21 at 2044, Until Discontinu ed, Routine, Pain (scale 1-3) apixaban 5 2020- No 1358 5mg Take 1 Univ ers mg tablet 06-01 tablet by ity of 00:00: 04:59 mouth 2 [place] 00 :00 (two) Medical times Branch daily for 30 days. Indication s: atrial fibrillati on furosemide 2020- No [id number] 80mg Take 1 Univers 80 mg -01 07- tablet by ity of tablet 00:00: 04:59 mouth [place] 00 :00 every Medical morning Branch and evening for 30 days. apixaban 5 2020- No 1358 5mg Take 1 Univ ers mg tablet 06-01- tablet by ity of 00:00: 04:59 mouth 2 [place] 00 :00 (two) Medical times Branch daily for 30 days. Indication s: atrial fibrillati on furosemide 2020- No [id number] 80mg Take 1 Univers 80 mg -01 07- tablet by ity of tablet 00:00: 04:59 mouth [place] 00 :00 every Medical morning Branch and evening for 30 days. apixaban 5 2020- No 1358 5mg Take 1 Univ ers mg tablet 06-01- tablet by ity of 00:00: 04:59 mouth 2 [place] 00 :00 (two) Medical times Branch daily for 30 days. Indication s: atrial fibrillati on furosemide 2020- No [id number] 80mg Take 1 Univers 80 mg 9-25 10-26 tablet by ity of tablet 00:00: 04:59 mouth [place] 00 :00 every Medical morning Branch and evening for 30 days. furosemide Yes 80mg 80 mg, Unive rs (LASIX) 05-29 Oral, ity of tablet 80 22:00: QAM+PM, [place] mg 00 First dose Medical on Thu Branch 05/29/21 at 1700, Until Discontinu ed, Routine carvediloL Yes 25mg 25 mg, Unive rs (COREG) 05-29 Oral, BID ity of tablet 25 15:45: MEALS, [place] mg 00 First dose Medical on Thu Branch 05/29/21 at 1045, Until Discontinu ed, Routine metoprolol 2020- No 5mg 5 mg, Slow Univers (LOPRESSOR) 05-29 IV Push, ity of injection 5 11:30: 10:32 ONCE, 1 [place] mg 00 :00 dose, On Medical Thu Branch 05/29/21 at 0630, Routine apixaban Yes 5mg 5 mg, Univers (ELIQUIS) 05-29 Oral, BID, ity of tablet 5 mg 01:00: First dose [place] 00 on [facility] 05/28/21 at Branch 2000, Until Discontinu ed, Routine levoFLOXaci No 250mg 250 mg, U nivers n 05-28 Oral, ity of (LEVAQUIN) 12:00: 16:14 Q48H, [place] tablet 250 00 :00 First dose Med ical mg on Shushan 05/28/21 at 0700, Until Discontinu ed, AMANDA
Re ason for Anti-Infec tive: Documented Infection< br>Documen cathy Infection Site: Urine
D uration of Therapy: 7 days sulfur 2020- No [id number] 5mL 5 mL, [facility] rs hexafluorid 05-27 Intravenou i ty of e microsphr 18:15: 18:07 s, ONCE, 1 [place] (LUMASON) 00 :00 dose, On Medica l injection 5 Thu [place] mL 05/27/21 at 1315, Routine
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 crewmember approving Restricted medication : PRIYA MOLINA zolpidem Yes 5mg 5 mg, Univers (AMBIEN) 05-27 Oral, ity of tablet 5 mg 02:34: QHSPRN, [place] as 20 Starting Medical on Thu Branch 05/26/21 at 2134, Until Discontinu ed, Routine, Insomnia bumetanide 2020- No 2mg 2 mg, Slow Univers (BUMEX) 05-26 IV Push, ity of injection 2 19:00: 15:39 TID, First [place] mg 00 :47 dose Medical (after Branch last modificati on) on 05/26/21 at 1400, Until Discontinu ed, Routine heparin 2020- No 1000U/h 1,000 Unive rs 25,000 05-26 Units/hr ity of Units/250 18:48: 16:21 (10 [place] mL 33 :17 mL/hr), IV Medical (Premixed Infusion, Bran h Bag) in TITRATE, 0.45 % NS Parameters in Admin. Instr., Starting on 05/26/21 at 1348
CA UTION - If LMWH given in ER, AVOID bolus and start next dose/drip 12 hrs after ER dosage.&nb sp; M ust program rate using programmab le infusion pump.&nbsp ; Kristine ck with the ordering provider first prior to any administra tion should the patient be on existing/a dditional anticoagul ant therapy. Rang e, Dosing and Testing: &nbs p;FOR [place], AND [facility] ONLY - aPTT < 35: & nbsp;Bolus 5000 units, increase rate 300 units/hr&n bsp; - aPTT 35-44:&nbs p; Glenn andrés 3000 units, increase rate 200 units/hr&n bsp; - aPTT 45-54:&nbs p; In crease rate 100 units/hr&n bsp; - aPTT 55-85:&nbs p; NO CHANGE&nbs p; - aPTT 86-95:&nbs p; De crease rate 100 units/hr&n bsp; - aPTT 96-120:&nb sp; H old 30 minutes, decrease rate 150 units/hr&n bsp; - aPTT > 120:&n bsp; Hold 60 minutes, decrease rate 200 units/hr&n bsp; Check aPTT 6 hours after initiation , then Q6H after every change, aPTT Q12H once therapeuti c levels are reached.&n bsp; &nbs p; __ &n bsp;FOR [facility] ONLY - aPTT < 40: & nbsp;Bolus 5000 units, increase rate 300 units/hr&n bsp; - aPTT 40-49:&nbs p; Glenn andrés 3000 units, increase rate 200 units/hr&n bsp; - aPTT 50-59:&nbs p; In crease rate 100 units/hr&a mp;nbsp; - aPTT 60-85:&nbs p; NO CHANGE&nbs p; - aPTT 86-95:&nbs p; De crease rate 100 units/hr&n bsp; - aPTT 96-120:&nb sp; H old 30 minutes, decrease rate 150 units/hr&n bsp; - aPTT > 120: Hold 60 minutes, decrease rate 200 units/hr&n bsp; Check aPTT 6 hours after initiation , then Q6H after every change, aPTT Q12H once therapeuti c levels are reached.&n bsp; DO NOT ADJUST INITIAL BOLUS OR INITIAL INFUSION RATE.
heparin 2020- No 3000U FOR Univers (1,000 9 09- REBOLUSING ity of unit/mL, 10 17:48: 16:21 , Starting [place] mL vial) 34 :17 on [facility] for 05/26/21 at Branch Rebolusing 1248, Until 05/28/21 at 1121, Routine
Dosing based on aPTT testing parameters (refer to continuous heparin drip order).
heparin 2020- No 5000U 5,000 Univers 1000 05-26 Units, IV ity of unit/mL 17:45: 19:23 Push, [place] injection 00 :00 ONCE, 1 Medical Soln 5,000 dose, On Branc h Units [place] 05/26/21 at 1245, Routine allopurinoL Yes 100mg 100 mg, Un uri (ZYLOPRIM) 05-26 Oral, ity of tablet 100 14:00: DAILY, [place] mg 00 First dose Medical on [facility] 05/26/21 at 0900, Until Discontinu ed, Routine enoxaparin No 40mg 40 mg, Univ ers (LOVENOX) 05-26 Subcutaneo ity of injection 14:00: 17:42 us, DAILY, [place] 40 mg 00 :50 First dose Medical on [facility] 05/26/21 at 0900, Until Discontinu ed, Routine acetaminoph 2020- No 500mg 500 mg, U nivers en 05-26 Oral, ity of (TYLENOL) 12:15: 11:20 ONCE, 1 [place] tablet 500 00 :00 dose, On Medic al mg [facility] 05/26/21 at 0715, Routine levoFLOXaci No 500mg 500 mg, IV Univers n in D5W 05-26 Piggyback, ity of (LEVAQUIN) 11:00: 15:14 Q24H ABX, [place] 500 mg/100 00 :04 First dose Med ical mL on [facility] Piggyback 05/26/21 at 500 mg 0600, Until Discontinu ed, Administer over 60 Minutes, 100 mL
Reas on for Anti-Infec tive: Documented Infection< br>Documen cathy Infection Site: Urine
D uration of Therapy: 7 days melatonin Yes 3mg 3 mg, Univers (MELATIN) 05-26 Oral, ity of tablet 3 mg 01:18: QHSPRN, [place] as 41 Starting Medical on [facility] Branch 05/25/21 at 2018, Until Discontinu ed, Routine, Insomnia docusate Yes 100mg 100 mg, Unive rs (COLACE) 05-26 Oral, BID, ity o f capsule 100 01:00: First dose [place] mg 00 on [facility] Medical 05/25/21 at Branch 2000, Until Discontinu ed, Routine insulin NPH Yes 40U 40 Units, U nivers and regular 05-25 Subcutaneo it y of human 70-30 22:00: us, [place] (HUMULIN 00 QAM+PM, Medical 70-30 U-100 First dose Br anch INSULIN) on [facility] 100 unit/mL 05/25/21 at (70-30) 1700, injection Until 40 Units Discontinu ed Sliding Yes Subcutaneo Univ ers Scale 05-25 us, AC+HS, ity of Insulin-Reg 21:30: First dose [place] ular + Fsbg 00 on [facility] Medica l Testing 05/25/21 at Branch 1630, Until Discontinu ed, Routine carvediloL 2020- No 25mg 25 mg, Univ ers (COREG) 05-25 Oral, ity of tablet 25 19:15: 22:45 ONCE, 1 [place] mg 00 :00 dose, On Medical [facility] 05/25/21 at 1415, Routine atorvastati 2020- No 10mg 10 mg, Uni vers n (LIPITOR) 05-25 Oral, ity of tablet 10 19:15: 20:04 ONCE, 1 [place] mg 00 :00 dose, On Medical [facility] 05/25/21 at 1415, Routine glucagon Yes 1mg 1 mg, Univers (GLUCAGEN 05-25 Intramuscu ity of DIAGNOSTIC 18:03: lar, PRN, [place] KIT) 31 Starting Medical injection 1 on [facility] 05/25/21 at 1303, Until Discontinu ed, AMANDA, Blood Glucose < or = 70 mg/dL and patient is unable to swallow or has mental changes. dextrose 50 Yes 25mL 25 mL, Univ ers % in water 9-18 Slow IV ity of (D50W) 18:03: Push, PRN, [place] injection 31 Starting Medica l 25 mL on Sat Branch 05/25/21 at 1303, Until Discontinu ed, AMANDA, Blood Glucose < or = 70 mg/dL and patient is unable to swallow or has mental status changes. levoFLOXaci 2020- 202- No 750mg 750 mg, IV Univers n in D5W 05-25 Piggyback, ity of (LEVAQUIN) 12:00: 12:24 ONCE, 1 [place] as 750 mg/150 00 :00 dose, On Medic al mL Sat Branch Piggyback 05/25/21 at 750 mg 0700, Administer over 90 Minutes, 150 mL
R eusebio for Anti-Infec tive: Empiric Therapy for Suspected Infection< br>Empiric Therapy Site: Respirator y
Durat ion of therapy: 72 hours bumetanide 2020- No 1.25mg 1.25 mg, Univers (BUMEX) 05-25 Slow IV ity of injection 11:30: 17:43 Push, [place] 1.25 mg 00 :16 Q24H, Medical First dose Branch on 05/25/21 at 0630, Until Discontinu ed, Routine Victoza 2020- No (18 3-Trena 0.6 8-13 mg/3 mg/0.1 mL 00:00: mL) (18 mg/3 00 mL) subcutaneou s pen injector Victoza 2020-0 No (18 3-Trena 0.6 8-13 mg/3 mg/0.1 mL 00:00: mL) (18 mg/3 00 mL) subcutaneou s pen injector Victoza 2020-0 No (18 3-Trena 0.6 8-12 mg/3 mg/0.1 mL 00:00: mL) (18 mg/3 00 mL) subcutaneou s pen injector Victoza 2020-0 No (18 3-Trena 0.6 8-12 mg/3 mg/0.1 mL 00:00: mL) (18 mg/3 00 mL) subcutaneou s pen injector Victoza 2020-0 No (18 3-Trena 0.6 8-03 mg/3 mg/0.1 mL 00:00: mL) (18 mg/3 00 mL) subcutaneou s pen injector Victoza 2020-0 No 1(18 3-Trena 0.6 8-03 mg/3 mg/0.1 mL 00:00: mL) (18 mg/3 00 mL) subcutaneou s pen injector Victoza 2020-0 No (18 3-Trena 0.6 8-03 mg/3 mg/0.1 mL 00:00: mL) (18 mg/3 00 mL) subcutaneou s pen injector Victoza 2020-0 No 1(18 3-Trena 0.6 8-03 mg/3 mg/0.1 mL 00:00: mL) (18 mg/3 00 mL) subcutaneou s pen injector Flonase 0 No 1mcg/ac Allergy 5-13 tuation Relief 50 00:00: mcg/actuati 00 on nasal spray,suspe nsion Flonase 0 No 1mcg/ac Allergy 5-13 tuation Relief 50 00:00: mcg/actuati 00 on nasal spray,suspe nsion Victoza 2020-0 No 1(18 3-Trena 0.6 4-19 mg/3 mg/0.1 mL 00:00: mL) (18 mg/3 00 mL) subcutaneou s pen injector Novolin N 2020-0 No unit/mL NPH U-100 -19 Insulin 00:00: isophane 00 100 unit/mL subcutaneou s susp atorvastati 0 No 1mg n 20 mg 4-19 tablet 00:00: 00 allopurinol 2020-0 No 1mg 100 mg 4-19 tablet 00:00: 00 Dose 2020-0 No Unknown -19 00:00: 00 clonidine 2020-0 No 1mg HCl 0.2 mg 4-19 tablet 00:00: 00 Eliquis 2.5 2020-0 No 1mg mg tablet 12-24 00:00: 00 furosemide 2020-0 No mg 40 mg 4-19 tablet 00:00: 00 spironolact 2020-0 No 1mg one 25 mg 4-19 tablet 00:00: 00 Victoza 2021-0 No 1(18 3-Trena 0.6 4-19 mg/3 mg/0.1 mL 00:00: mL) (18 mg/3 00 mL) subcutaneou s pen injector Novolin N 0 No unit/mL NPH U-100 -19 Insulin 00:00: isophane 00 100 unit/mL subcutaneou s susp atorvastati 0 No 1mg n 20 mg 4-19 tablet 00:00: 00 allopurinol 2020-0 No 1mg 100 mg 4-19 tablet 00:00: 00 Dose 2020-0 No Unknown - 00:00: 00 clonidine 2020-0 No 1mg HCl 0.2 mg - tablet 00:00: 00 Eliquis 2.5 No 1mg mg tablet 12-24 00:00: 00 furosemide 2020-0 No mg 40 mg - tablet 00:00: 00 spironolact 2020-0 No 1mg one 25 mg - tablet 00:00: 00 Victoza 0 No 1(18 3-Trena 0.6 2-25 mg/3 mg/0.1 mL 00:00: mL) (18 mg/3 00 mL) subcutaneou s pen injector Victoza 0 No 1(18 3-Trena 0.6 2-25 mg/3 mg/0.1 mL 00:00: mL) (18 mg/3 00 mL) subcutaneou s pen injector Victoza 2019-09 No 1(18 3-Trena 0.6 2-30 mg/3 mg/0.1 mL 00:00: mL) (18 mg/3 00 mL) subcutaneou s pen injector Victoza 2019-09 No 1(18 3-Trena 0.6 2-30 mg/3 mg/0.1 mL 00:00: mL) (18 mg/3 00 mL) subcutaneou s pen injector Novolin N 2019-09 No unit/mL NPH U-100 2-27 Insulin 00:00: isophane 00 100 unit/mL subcutaneou s susp allopurinol 2019-09 No 1mg 100 mg 2-27 tablet 00:00: 00 atorvastati 2019-09 No 1mg n 20 mg 2-27 tablet 00:00: 00 Eliquis 2.5 2019- No 1mg mg tablet 2-27 00:00: 00 carvedilol 2019- No 1mg 25 mg 2-27 tablet 00:00: 00 clonidine 2019- No 1mg HCl 0.2 mg 2-27 tablet 00:00: 00 spironolact 2019-09 No 1mg one 25 mg 2-27 tablet 00:00: 00 furosemide 2019- No mg 40 mg 2-27 tablet 00:00: 00 Novolin N 2019-09 No unit/mL NPH U-100 2-27 Insulin 00:00: isophane 00 100 unit/mL subcutaneou s susp allopurinol 2019-09 No 1mg 100 mg 2-27 tablet 00:00: 00 atorvastati 2019-09 No 1mg n 20 mg 2-27 tablet 00:00: 00 Eliquis 2.5 2019-09 No 1mg mg tablet 2-27 00:00: 00 carvedilol 2019- No 1mg 25 mg 2-27 tablet 00:00: 00 clonidine 2019-09 No 1mg HCl 0.2 mg 2-27 tablet 00:00: 00 spironolact 2019-09 No 1mg one 25 mg 2-27 tablet 00:00: 00 furosemide 2019-09 No mg 40 mg 2-27 tablet 00:00: 00 Victoza 2019-09 No 1(18 3-Trena 0.6 0-13 mg/3 mg/0.1 mL 00:00: mL) (18 mg/3 00 mL) subcutaneou s pen injector Novolin N 2019-09 No unit/mL NPH U-100 0-13 Insulin 00:00: isophane 00 100 unit/mL subcutaneou s susp allopurinol 2019-09 No 1mg 100 mg 0-13 tablet 00:00: 00 atorvastati 2019-09 No 1mg n 20 mg 0-13 tablet 00:00: 00 furosemide 2019- No mg 40 mg 0-13 tablet 00:00: 00 spironolact 2019-09 No 1mg one 25 mg 0-13 tablet 00:00: 00 Victoza 2019- No 1(18 3-Trena 0.6 0-13 mg/3 mg/0.1 mL 00:00: mL) (18 mg/3 00 mL) subcutaneou s pen injector Novolin N 2020-1 No unit/mL NPH U-100 0-13 Insulin 00:00: isophane 00 100 unit/mL subcutaneou s susp allopurinol 2019-1 No 1mg 100 mg 0-13 tablet 00:00: 00 atorvastati 2019-1 No 1mg n 20 mg 0-13 tablet 00:00: 00 furosemide 2019-1 No mg 40 mg 0-13 tablet 00:00: 00 spironolact 2019-1 No 1mg one 25 mg 0-13 tablet 00:00: 00 Victoza 2020-0 No 1(18 3-Trena 0.6 8-13 mg/3 mg/0.1 mL 00:00: mL) (18 mg/3 00 mL) subcutaneou s pen injector Victoza 2020-0 No 1(18 3-Trena 0.6 8-13 mg/3 mg/0.1 mL 00:00: mL) (18 mg/3 00 mL) subcutaneou s pen injector mupirocin 2 2020-0 No 1% % topical 7-16 ointment 00:00: 00 mupirocin 2 2020-0 No 1% % topical 7-16 ointment 00:00: 00 doxycycline 2020-0 No 1mg hyclate 100 3-10 mg tablet 00:00: 00 doxycycline 2020-0 No 1mg hyclate 100 3-10 mg tablet 00:00: 00 ciprofloxac 2020-0 No 1mg in 500 mg 2-26 tablet 00:00: 00 ciprofloxac 2020-0 No 1mg in 500 mg 2-26 tablet 00:00: 00 Victoza 2020-0 No 1(18 3-Trena 0.6 2-03 mg/3 mg/0.1 mL 00:00: mL) (18 mg/3 00 mL) subcutaneou s pen injector Novolin N 2020-0 No unit/mL NPH U-100 2-03 Insulin 00:00: isophane 00 100 unit/mL subcutaneou s susp allopurinol 2020-0 No 1mg 100 mg 2-03 tablet 00:00: 00 atorvastati 2020-0 No 1mg n 20 mg 2-03 tablet 00:00: 00 carvedilol 2020-0 No 1mg 25 mg 2-03 tablet 00:00: 00 spironolact 2020-0 No 1mg one 25 mg 2-03 tablet 00:00: 00 furosemide 2020-0 No 1mg 40 mg 2-03 tablet 00:00: 00 Zithromax 2020-0 No 1mg 250 mg 2-03 tablet 00:00: 00 Victoza 2020-0 No 1(18 3-Trena 0.6 2-03 mg/3 mg/0.1 mL 00:00: mL) (18 mg/3 00 mL) subcutaneou s pen injector Novolin N 2020-0 No unit/mL NPH U-100 2-03 Insulin 00:00: isophane 00 100 unit/mL subcutaneou s susp allopurinol 2020-0 No 1mg 100 mg 2-03 tablet 00:00: 00 atorvastati 2020-0 No 1mg n 20 mg 2-03 tablet 00:00: 00 carvedilol 2020-0 No 1mg 25 mg 2-03 tablet 00:00: 00 spironolact 2020-0 No 1mg one 25 mg 2-03 tablet 00:00: 00 furosemide 2020-0 No 1mg 40 mg 2-03 tablet 00:00: 00 Zithromax 2020-0 No 1mg 250 mg 2-03 tablet 00:00: 00 Victoza 2020-0 No 1(18 3-Trena 0.6 1-21 mg/3 mg/0.1 mL 00:00: mL) (18 mg/3 00 mL) subcutaneou s pen injector Novolin N 2020-0 No unit/mL NPH U-100 1-21 Insulin 00:00: isophane 00 100 unit/mL subcutaneou s susp Novolin N 2020-0 No unit/mL NPH U-100 1-21 Insulin 00:00: isophane 00 100 unit/mL subcutaneou s susp allopurinol 2020-0 No 1mg 100 mg 1-21 tablet 00:00: 00 atorvastati 2020-0 No 1mg n 20 mg 1-21 tablet 00:00: 00 atorvastati 2020-0 No 1mg n 20 mg 1-21 tablet 00:00: 00 allopurinol 2020-0 No 1mg 100 mg 1-21 tablet 00:00: 00 carvedilol 2020-0 No 1mg 25 mg 1-21 tablet 00:00: 00 clonidine 2020-0 No 1mg HCl 0.2 mg 1-21 tablet 00:00: 00 clonidine 2020-0 No 1mg HCl 0.2 mg 1-21 tablet 00:00: 00 carvedilol 2020-0 No 1mg 25 mg 1-21 tablet 00:00: 00 Victoza 2020-0 No 1(18 3-Trena 0.6 1-21 mg/3 mg/0.1 mL 00:00: mL) (18 mg/3 00 mL) subcutaneou s pen injector Novolin N 2020-0 No unit/mL NPH U-100 1-21 Insulin 00:00: isophane 00 100 unit/mL subcutaneou s susp Novolin N 2020-0 No unit/mL NPH U-100 1-21 Insulin 00:00: isophane 00 100 unit/mL subcutaneou s susp allopurinol 2020-0 No 1mg 100 mg 1-21 tablet 00:00: 00 atorvastati 2020-0 No 1mg n 20 mg 1-21 tablet 00:00: 00 atorvastati 2020-0 No 1mg n 20 mg 1-21 tablet 00:00: 00 allopurinol 2020-0 No 1mg 100 mg 1-21 tablet 00:00: 00 carvedilol 2020-0 No 1mg 25 mg 1-21 tablet 00:00: 00 clonidine 2020-0 No 1mg HCl 0.2 mg 1-21 tablet 00:00: 00 spironolact 2020-0 No 1mg one 25 mg 1-21 tablet 00:00: 00 clonidine 2020-0 No 1mg HCl 0.2 mg 1-21 tablet 00:00: 00 carvedilol 2020-0 No 1mg 25 mg 1-21 tablet 00:00: 00 spironolact 2020-0 No 1mg one 25 mg 1-21 tablet 00:00: 00 spironolact 2020-0 No 1mg one 25 mg 1-21 tablet 00:00: 00 spironolact 2020-0 No 1mg one 25 mg 1-21 tablet 00:00: 00 furosemide 2020-0 No mg 40 mg 1-21 tablet 00:00: 00 furosemide 2020-0 No mg 40 mg 1-21 tablet 00:00: 00 Vitamin D3 2020-0 No 1(2,000 50 mcg 1-21 unit) (2,000 00:00: unit) 00 tablet Vitamin D3 2020-0 No 1%-" 50 mcg 1-21 (2,000 00:00: unit) 00 tablet Vitamin D3 2020-0 No 1%-" 50 mcg 1-21 (2,000 00:00: unit) 00 tablet spironolact 2020-0 No 1mg one 25 mg 1-21 tablet 00:00: 00 spironolact 2020-0 No 1mg one 25 mg 1-21 tablet 00:00: 00 furosemide 2020-0 No mg 40 mg 1-21 tablet 00:00: 00 furosemide 2020-0 No mg 40 mg 1-21 tablet 00:00: 00 Vitamin D3 2020-0 No 1(2,000 50 mcg 1-21 unit) (2,000 00:00: unit) 00 tablet Vitamin D3 2020-0 No 1%-" 50 mcg 1-21 (2,000 00:00: unit) 00 tablet Vitamin D3 2020-0 No 1%-" 50 mcg 1-21 (2,000 00:00: unit) 00 tablet amiodarone 2020-0 No 1mg 200 mg 1-02 tablet 00:00: 00 atorvastati 2020-0 No 1mg n 20 mg 1-02 tablet 00:00: 00 Eliquis 2.5 2020-0 No 1mg mg tablet 02 00:00: 00 carvedilol 2020-0 No 1mg 25 mg 1-02 tablet 00:00: 00 clonidine 2020-0 No 1mg HCl 0.2 mg 1-02 tablet 00:00: 00 spironolact 2020-0 No 1mg one 25 mg 1-02 tablet 00:00: 00 furosemide 2020-0 No mg 40 mg 1-02 tablet 00:00: 00 Claritin-D 2020-0 No 1mg 24 Hour 10 1-02 mg-240 mg 00:00: tablet,exte 00 nded release Vitamin D3 2020-0 No 1%-" 50 mcg 1-02 (2,000 00:00: unit) 00 tablet Flonase 2020-0 No 2mcg/ac Allergy 02 tuation Relief 50 00:00: mcg/actuati 00 on nasal spray,suspe nsion Victoza 2020-0 No 1(18 3-Trena 0.6 1-02 mg/3 mg/0.1 mL 00:00: mL) (18 mg/3 00 mL) subcutaneou s pen injector Novolin N 2020-0 No 1unit/m NPH U-100 1-02 L Insulin 00:00: isophane 00 100 unit/mL subcutaneou s susp Aldactone 2020-0 No 1mg 25 mg -02 tablet 00:00: 00 allopurinol 2020-0 No 1mg 100 mg -02 tablet 00:00: 00 amiodarone 2019-0 No 1mg 200 mg -02 tablet 00:00: 00 atorvastati 2019-0 No 1mg n 20 mg -02 tablet 00:00: 00 Eliquis 2.5 2019-0 No 1mg mg tablet 02 00:00: 00 carvedilol 2019-0 No 1mg 25 mg -02 tablet 00:00: 00 clonidine 2019-0 No 1mg HCl 0.2 mg -02 tablet 00:00: 00 spironolact 2019-0 No 1mg one 25 mg -02 tablet 00:00: 00 furosemide 2019-0 No mg 40 mg - tablet 00:00: 00 Claritin-D 2019-0 No 1mg 24 Hour 10 1-02 mg-240 mg 00:00: tablet,exte 00 nded release Vitamin D3 2019-0 No 1%-" 50 mcg -02 (2,000 00:00: unit) 00 tablet Flonase 2019-0 No 2mcg/ac Allergy 02 tuation Relief 50 00:00: mcg/actuati 00 on nasal spray,suspe nsion Victoza 2020-0 No 1(18 3-Trena 0.6 1-02 mg/3 mg/0.1 mL 00:00: mL) (18 mg/3 00 mL) subcutaneou s pen injector Novolin N 2020-0 No 1unit/m NPH U-100 1-02 L Insulin 00:00: isophane 00 100 unit/mL subcutaneou s susp Aldactone 2020-0 No 1mg 25 mg -02 tablet 00:00: 00 allopurinol 2020-0 No 1mg 100 mg -02 tablet 00:00: 00 nystatin 2019-0 Yes Candidiasis Apply U nivers (MYCOSTATIN 9-26 of skin topically ity of ) 100,000 00:00: to [place] units/g 00 affected MD powder area(s) [place] twice n daily. [facility] nystatin Yes Candidiasis Apply U nivers (MYCOSTATIN 9-26 of skin topically ity of ) 100,000 00:00: to [place] units/g 00 affected MD powder area(s) [place] twice n daily. [facility] nystatin Yes Candidiasis Apply U nivers (MYCOSTATIN 9-26 of skin topically ity of ) 100,000 00:00: to [place] units/g 00 affected MD powder area(s) [place] twice n daily. [facility] nystatin Yes Candidiasis Apply U nivers (MYCOSTATIN 9-26 of skin topically ity of ) 100,000 00:00: to [place] units/g 00 affected MD powder area(s) [place] twice n daily. [facility] nystatin Yes Candidiasis Apply U nivers (MYCOSTATIN 9-26 of skin topically ity of ) 100,000 00:00: to [place] units/g 00 affected MD powder area(s) [place] twice n daily. [facility] nystatin Yes Candidiasis Apply U nivers (MYCOSTATIN 9-26 of skin topically ity of ) 100,000 00:00: to [place] units/g 00 affected MD powder area(s) [place] twice n daily. [facility] nystatin Yes Apply [place]oria (MYCOSTATIN 9-26 topically l ) 100,000 00:00: to [place] units/g 00 affected powder area(s) twice daily. carvedilol Yes 25mg Take 25 mg U nivers (COREG) 25 9-25 by mouth ity o f mg tablet 15:41: twice [place] 40 daily. [facility] furosemide Yes 40mg Take 40 mg U nivers (LASIX) 40 9-25 by mouth ity o f mg tablet 15:41: twice [place] 40 daily. 40mg in [place] AM, 20mg n in PM Cancer daily Center INSULIN NPH Yes 45U Inject 45 U nivers HUMAN 9-25 Units ity of ISOPHANE 15:41: [place] (NOVOLIN N 40 skin twice SUBCUTANEOU daily. 45 And erso S) units in n AM and 40 Cancer units at Center bedtime LIRAGLUTIDE Yes 1.8mg Inject 1.8 Univers (VICTOZA 9-25 mg under ity of 2-TRENA 15:41: the skin [place] SUBCUTANEOU 40 daily. MD Lent[place]) [facility] cholecalcif Yes 2000U Take 2,000 Univers stefania, 9-25 Units by ity of vitamin D3, 15:41: mouth [place] (VITAMIN 40 daily. D3) 2,000 [place] units tab n tablet [facility] [place] apixaban Yes 2.5mg Take 2.5 Univ ers (ELIQUIS) 9-25 mg by ity of 2.5 mg 15:41: mouth [place] tablet 40 twice MD daily. [facility] cloNIDine Yes .2mg Take 0.2 Univ ers HCl 9-25 mg by ity of (CATAPRES) 15:41: mouth [place] 0.2 mg 40 twice MD tablet daily. [facility] carvedilol Yes 25mg Take 25 mg U nivers (COREG) 25 9-25 by mouth ity o f mg tablet 15:41: twice [place] 40 daily. [facility] furosemide Yes 40mg Take 40 mg U nivers (LASIX) 40 9-25 by mouth ity o f mg tablet 15:41: twice [place] 40 daily. 40mg in [place] AM, 20mg n in PM Cancer daily Center INSULIN NPH Yes 45U Inject 45 U nivers HUMAN 9-25 Units ity of ISOPHANE 15:41: [place] (NOVOLIN N 40 skin twice MD SUBCUTANEOU daily. 45 And erso S) units in n AM and 40 Cancer units at Center bedtime LIRAGLUTIDE Yes 1.8mg Inject 1.8 Univers (VICTOZA 9-25 mg under ity of 2-TRENA 15:41: the skin [place] SUBCUTANEOU 40 daily. MD Lent[place]) [facility] cholecalcif Yes 2000U Take 2,000 [facility] stefania, 9-25 Units by ity of vitamin D3, 15:41: mouth [place] (VITAMIN 40 daily. D3) 2,000 [place] units tab n tablet [facility] apixaban Yes 2.5mg Take 2.5 Univ ers (ELIQUIS) 9-25 mg by ity of 2.5 mg 15:41: mouth [place] tablet 40 twice MD daily. [facility] ferrous 2019 Yes 37mg Take 37 mg Univ ers gluconate 9-25 by mouth ity of (FERGON) 15:41: daily with Gianni as 325 mg 40 breakfast. tablet [facility] cloNIDine Yes .2mg Take 0.2 Univ ers HCl 9-25 mg by ity of (CATAPRES) 15:41: mouth [place] 0.2 mg 40 twice MD tablet daily. [facility] ferrous Yes 37mg Take 37 mg Univ ers gluconate 9-25 by mouth ity of (FERGON) 15:41: daily with Gianni as 325 mg 40 breakfast. tablet [facility] atorvastati Yes 20mg Take 20 mg Univers n (LIPITOR) 9-25 by mouth ity of 20 mg 15:41: daily. [place] tablet 40 [facility] allopurinol Yes 100mg Take 100 U nivers (ZYLOPRIM) 9-25 mg by ity of 100 mg 15:41: mouth [place] tablet 40 daily. [facility] amiodarone Yes 200mg Take 200 Un uri (PACERONE) 9-25 mg by ity of 200 mg 15:41: mouth [place] tablet 40 daily. [facility] fluticasone Yes 1{spray Inhale 1 Univers (FLONASE) 9-25 } spray into ity of 50 15:41: each [place] mcg/spray 40 nostril nasal spray daily. [facility] loratadine Yes 10mg Take 10 mg U nivers (CLARITIN) 9-25 by mouth ity o f 10 mg 15:41: daily. [place] tablet 40 [facility] atorvastati Yes 20mg Take 20 mg Univers n (LIPITOR) 9-25 by mouth ity of 20 mg 15:41: daily. [place] tablet 40 [facility] allopurinol Yes 100mg Take 100 U nivers (ZYLOPRIM) 9-25 mg by ity of 100 mg 15:41: mouth [place] tablet 40 daily. MD [facility] amiodarone Yes 200mg Take 200 Un uri (PACERONE) 9-25 mg by ity of 200 mg 15:41: mouth [place] tablet 40 daily. MD Leda quevedo [facility] fluticasone Yes 1{spray Inhale 1 Univers (FLONASE) 9-25 } spray into ity of 50 15:41: each [place] mcg/spray 40 nostril nasal spray daily. [facility] loratadine Yes 10mg Take 10 mg U nivers (CLARITIN) 9-25 by mouth ity o f 10 mg 15:41: daily. [place] tablet 40 [facility] carvedilol Yes 25mg Take 25 mg U nivers (COREG) 25 9-25 by mouth ity o f mg tablet 15:41: twice [place] 40 daily. MD Leda quevedo [facility] furosemide Yes 40mg Take 40 mg U nivers (LASIX) 40 9-25 by mouth ity o f mg tablet 15:41: twice [place] 40 daily. 40mg in Anderso AM, 20mg n in PM Cancer daily Center INSULIN NPH Yes 45U Inject 45 U nivers HUMAN 9-25 Units ity of ISOPHANE 15:[place] (NOVOLIN N 40 skin twice MD SUBCUTANEOU daily. 45 And erso S) units in n AM and 40 Cancer units at Center bedtime LIRAGLUTIDE Yes 1.8mg Inject 1.8 Univers (VICTOZA 9-25 mg under ity of 2-TRENA 15:41: the skin [place] SUBCUTANEOU 40 daily. S) [facility] cholecalcif Yes 2000U Take 2,000 Univers stefania, 9-25 Units by ity of vitamin D3, 15:41: mouth [place] (VITAMIN 40 daily. D3) 2,000 [place] units tab n tablet [facility] [place] apixaban Yes 2.5mg Take 2.5 Univ ers (ELIQUIS) 9-25 mg by ity of 2.5 mg 15:41: mouth [place] tablet 40 twice [facility]. [facility] .2mg Take 0.2 Univ ers HCl 9-25 mg by ity of (CATAPRES) 15:41: mouth [place] 0.2 mg 40 twice MD tablet daily. [facility] ferrous Yes 37mg Take 37 mg Univ ers gluconate 9-25 by mouth ity of (FERGON) 15:41: daily with Gianni as 325 mg 40 breakfast. tablet [facility] atorvastati Yes 20mg Take 20 mg Univers n (LIPITOR) 9-25 by mouth ity of 20 mg 15:41: daily. [place] tablet 40 [facility] allopurinol Yes 100mg Take 100 U nivers (ZYLOPRIM) 9-25 mg by ity of 100 mg 15:41: mouth [place] tablet 40 daily. [facility] amiodarone Yes 200mg Take 200 Un uri (PACERONE) 9-25 mg by ity of 200 mg 15:41: mouth [place] tablet 40 daily. [facility] fluticasone Yes 1{spray Inhale 1 Univers (FLONASE) 9-25 } spray into ity of 50 15:41: each [place] mcg/spray 40 nostril nasal spray daily. [facility] loratadine Yes 10mg Take 10 mg U nivers (CLARITIN) 9-25 by mouth ity o f 10 mg 15:41: daily. [place] tablet 40 [facility] carvedilol Yes 25mg Take 25 mg U nivers (COREG) 25 9-25 by mouth ity o f mg tablet 15:41: twice [place] 40 daily. [facility] furosemide Yes 40mg Take 40 mg U nivers (LASIX) 40 9-25 by mouth ity o f mg tablet 15:41: twice [place] 40 daily. 40mg in Anders[place] AM, 20mg n in PM Cancer daily Center INSULIN NPH Yes 45U Inject 45 U nivers HUMAN 9-25 Units ity of ISOPHANE 15:41: [place] (NOVOLIN N 40 skin twice SUBCUTANEOU daily. 45 And erso S) units in n AM and 40 Cancer units at Center bedtime LIRAGLUTIDE Yes 1.8mg Inject 1.8 Univers (VICTOZA 9-25 mg under ity of 2-TRENA 15:41: the skin [place] SUBCUTANEOU 40 daily. MD Lentz) [facility] cholecalcif Yes 2000U Take 2,000 Univers stefania, 9-25 Units by ity of vitamin D3, 15:41: mouth [place] (VITAMIN 40 daily. D3) 2,000 [place] units tab n tablet [facility] apixaban Yes 2.5mg Take 2.5 Univ ers (ELIQUIS) 9-25 mg by ity of 2.5 mg 15:41: mouth [place] tablet 40 twice MD daily. [facility] cloNIDine Yes .2mg Take 0.2 Univ ers HCl 9-25 mg by ity of (CATAPRES) 15:41: mouth [place] 0.2 mg 40 twice MD tablet daily. [facility] ferrous Yes 37mg Take 37 mg Univ ers gluconate 9-25 by mouth ity of (FERGON) 15:41: daily with Gianni as 325 mg 40 breakfast. tablet [facility] atorvastati Yes 20mg Take 20 mg Univers n (LIPITOR) 9-25 by mouth ity of 20 mg 15:41: daily. [place] tablet 40 [facility] allopurinol Yes 100mg Take 100 U nivers (ZYLOPRIM) 9-25 mg by ity of 100 mg 15:41: mouth [place] tablet 40 daily. [facility] amiodarone Yes 200mg Take 200 Un uri (PACERONE) 9-25 mg by ity of 200 mg 15:41: mouth [place] tablet 40 daily. [facility] fluticasone Yes 1{spray Inhale 1 Univers (FLONASE) 9-25 } spray into ity of 50 15:41: each [place] mcg/spray 40 nostril nasal spray daily. [facility] loratadine Yes 10mg Take 10 mg U nivers (CLARITIN) 9-25 by mouth ity o f 10 mg 15:41: daily. [place] tablet 40 [facility] carvedilol Yes 25mg Take 25 mg U nivers (COREG) 25 9-25 by mouth ity o f mg tablet 15:41: twice [place] 40 daily. MD Leda quevedo [facility] furosemide Yes 40mg Take 40 mg U nivers (LASIX) 40 9-25 by mouth ity o f mg tablet 15:41: twice [place] 40 daily. 40mg in Anders[place] AM, 20mg n in PM Cancer daily Center INSULIN NPH Yes 45U Inject 45 U nivers HUMAN 9-25 Units ity of ISOPHANE 15:41: [place] (NOVOLIN N 40 skin twice MD SUBCUTANEOU daily. 45 And erso S) units in n AM and 40 Cancer units at Center bedtime LIRAGLUTIDE Yes 1.8mg Inject 1.8 Univers (VICTOZA 9-25 mg under ity of 2-TRENA 15:41: the skin [place] SUBCUTANEOU 40 daily. MD Lentz) [facility] cholecalcif Yes 2000U Take 2,000 Univers stefania, 9-25 Units by ity of vitamin D3, 15:41: mouth [place] (VITAMIN 40 daily. D3) 2,000 [place] units tab n tablet [facility] apixaban Yes 2.5mg Take 2.5 Univ ers (ELIQUIS) 9-25 mg by ity of 2.5 mg 15:41: mouth [place] tablet 40 twice MD daily. [facility] cloNIDine Yes .2mg Take 0.2 Univ ers HCl 9-25 mg by ity of (CATAPRES) 15:41: mouth [place] 0.2 mg 40 twice MD tablet daily. [facility] ferrous Yes 37mg Take 37 mg Univ ers gluconate 9-25 by mouth ity of (FERGON) 15:41: daily with Gianni as 325 mg 40 breakfast. tablet [facility] atorvastati Yes 20mg Take 20 mg Univers n (LIPITOR) 9-25 by mouth ity of 20 mg 15:41: daily. [place] tablet 40 [facility] allopurinol Yes 100mg Take 100 U nivers (ZYLOPRIM) 9-25 mg by ity of 100 mg 15:41: mouth [place] tablet 40 daily. MD [facility] amiodarone Yes 200mg Take 200 Un uri (PACERONE) 9-25 mg by ity of 200 mg 15:41: mouth [place] tablet 40 daily. MD Leda quevedo [facility] fluticasone Yes 1{spray Inhale 1 Univers (FLONASE) 9-25 } spray into ity of 50 15:41: each [place] mcg/spray 40 nostril nasal spray daily. [facility] loratadine Yes 10mg Take 10 mg U nivers (CLARITIN) 9-25 by mouth ity o f 10 mg 15:41: daily. [place] tablet 40 [facility] carvedilol Yes 25mg Take 25 mg U nivers (COREG) 25 9-25 by mouth ity o f mg tablet 15:41: twice [place] 40 daily. MD Leda quevedo [facility] furosemide Yes 40mg Take 40 mg U nivers (LASIX) 40 9-25 by mouth ity o f mg tablet 15:41: twice [place] 40 daily. 40mg in [place] AM, 20mg n in PM Cancer daily Center INSULIN NPH Yes 45U Inject 45 U nivers HUMAN 9-25 Units ity of ISOPHANE 15:41: [place] (NOVOLIN N 40 skin twice MD SUBCUTANEOU daily. 45 And erso S) units in n AM and 40 Cancer units at Center bedtime LIRAGLUTIDE Yes 1.8mg Inject 1.8 Univers (VICTOZA 9-25 mg under ity of 2-TRENA 15:41: the skin [place] SUBCUTANEOU 40 daily. S) [facility] cholecalcif Yes 2000U Take 2,000 Univers stefania, 9-25 Units by ity of vitamin D3, 15:41: mouth [place] (VITAMIN 40 daily. D3) 2,000 [place] units tab n tablet [facility] [place] apixaban Yes 2.5mg Take 2.5 Univ ers (ELIQUIS) 9-25 mg by ity of 2.5 mg 15:41: mouth [place] tablet 40 twice MD daily. [facility] cloNIDine Yes .2mg Take 0.2 Univ ers HCl 9-25 mg by ity of (CATAPRES) 15:41: mouth [place] 0.2 mg 40 twice MD tablet daily. [facility] ferrous Yes 37mg Take 37 mg Univ ers gluconate 9-25 by mouth ity of (FERGON) 15:41: daily with Gianni as 325 mg 40 breakfast. MD sawant [facility] atorvastati Yes 20mg Take 20 mg Univers n (LIPITOR) 9-25 by mouth ity of 20 mg 15:41: daily. [place] tablet 40 [facility] allopurinol Yes 100mg Take 100 U nivers (ZYLOPRIM) 9-25 mg by ity of 100 mg 15:41: mouth [place] tablet 40 daily. [facility] amiodarone Yes 200mg Take 200 Un uri (PACERONE) 9-25 mg by ity of 200 mg 15:41: mouth [place] tablet 40 daily. [facility] fluticasone Yes 1{spray Inhale 1 Univers (FLONASE) 9-25 } spray into ity of 50 15:41: each [place] mcg/spray 40 nostril nasal spray daily. [facility] loratadine Yes 10mg Take 10 mg U nivers (CLARITIN) 9-25 by mouth ity o f 10 mg 15:41: daily. [place] tablet 40 [facility] apixaban Yes 2.5mg Take 2.5 [facility] (Eliquis) 9-25 mg by Health 2.5 MG 00:00: mouth. tablet apixaban Yes 2.5mg Take 2.5 [facility] (Eliquis) 9-25 mg by Health 2.5 MG 00:00: mouth. tablet 00 apixaban Yes 2.5mg Take 2.5 [facility] (Eliquis) 9-25 mg by Health 2.5 MG 00:00: mouth. tablet apixaban Yes 2.5mg Take 2.5 [facility] (Eliquis) 9-25 mg by Health 2.5 MG 00:00: mouth. tablet 00 apixaban Yes 2.5mg Take 2.5 [facility] (Eliquis) 9-25 mg by Health 2.5 MG 00:00: mouth. tablet 00 apixaban Yes 2.5mg Take 2.5 [facility] (Eliquis) 9-25 mg by Health 2.5 MG 00:00: mouth. tablet 00 spironolact Yes 1{tbl} Take 1 Un uri one 2-07 tablet by ity of (ALDACTONE) 00:00: mouth 3 Gianni as 25 mg 00 (three) MD tablet times a Thursday, Cancer Thursday [place] and Thursday. spironolact Yes 1{tbl} Take 1 Un uri one 2-07 tablet by ity of (ALDACTONE) 00:00: mouth 3 Gianni as 25 mg 00 (three) MD tablet times a Thursday, Cancer Thursday [place] and Thursday. spironolact Yes 1{tbl} Take 1 Un uri one 2-07 tablet by ity of (ALDACTONE) 00:00: mouth 3 Gianni as 25 mg 00 (three) MD tablet times a Thursday, Cancer Thursday [place] and Thursday. spironolact Yes 1{tbl} Take 1 Un uri one 2-07 tablet by ity of (ALDACTONE) 00:00: mouth 3 Gianni as 25 mg 00 (three) MD tablet times a Thursday, Cancer Thursday [place] and Thursday. spironolact Yes 1{tbl} Take 1 Un uri one 2-07 tablet by ity of (ALDACTONE) 00:00: mouth 3 Gianni as 25 mg 00 (three) MD tablet times a Thursday, Cancer Thursday [place] and Thursday. spironolact Yes 1{tbl} Take 1 Un uri one 2-07 tablet by ity of (ALDACTONE) 00:00: mouth 3 Gianni as 25 mg 00 (three) MD tablet times a Thursday, Cancer Thursday [place] and Thursday. spironolact Yes Take 1 Baldo hong one 2-07 tablet by l (ALDACTONE) 00:00: mouth 3 Her guerra 25 mg 00 (three) tablet times a week Thursday, Thursday and Thursday. Immunizations Ordered Immunization Filled Immunization Date Status Commen ts Source Name Name Bereket TELLEZ 2021-11-18 Completed Vaccine 00:00:00 Bere[place] COVID-19 2021-11-18 Completed Vaccine 00:00:00 Bereket ELLSWORTHID-19 2020-11-03 Completed Vaccine 00:00:00 Bereket ELLSWORTHID-Mario 2020-11-03 Completed Vaccine 00:00:00 Bereket ELLSWORTHID-Mario 2020-10-06 Completed Vaccine 00:00:00 Bereket ELLSWORTHID-19 2020-10-06 Completed Vaccine 00:00:00 Vital Signs Vital Name Observation Time Observation Value Comments Source Systolic blood 2021-06-04 01:12:00 135 mm[Hg] Univer sity [facility] Diastolic blood 2021-06-04 01:12:00 69 mm[Hg] Unive rsity [facility] Heart rate 2021-06-04 01:12:00 82 /min [facility] acute hospital Body temperature 2021-06-04 01:12:00 37.11 [facility]ette [facility] [place] [facility] Respiratory rate 2021-06-04 01:12:00 18 /min [facility] Oxygen saturation in 2021-06-04 01:12:00 97 /min [facility] Arterial blood by [facility] Pulse oximetry Branch Body weight 2021-05-30 10:00:00 135.535 kg [facility] acute hospital BMI 2021-05-30 10:00:00 56.46 kg/m2 [facility] acute hospital Body height 2021-05-25 15:00:00 154.9 cm [facility] BP Systolic 2022-09-22 15:08:00 143 mm[Hg] BP Diastolic 2022-09-22 15:08:00 66 mm[Hg] Weight Measured 2022-09-22 15:08:00 Height Measured 2022-09-22 15:08:00 Body Temperature 2022-09-22 15:08:00 98.40 degrees Heart Rate 2022-09-22 15:08:00 82.00 /min Respiratory Rate 2022-09-22 15:08:00 18.00 /min BP Systolic 2022-05-06 16:37:00 BP Diastolic 2022-05-06 16:37:00 Weight Measured 2022-05-06 16:37:00 Height Measured 2022-05-06 16:37:00 Body Temperature 2022-05-06 16:37:00 Heart Rate 2022-05-06 16:37:00 Respiratory Rate 2022-05-06 16:37:00 BP Systolic 2021-11-13 10:34:00 114 mm[Hg] BP Diastolic 2021-11-13 10:34:00 51 mm[Hg] Weight Measured 2021-11-13 10:34:00 236.20 pounds Height Measured 2021-11-13 10:34:00 60.50 inches Body Temperature 2021-11-13 10:34:00 97.30 degrees Heart Rate 2021-11-13 10:34:00 61.00 /min Respiratory Rate 2021-11-13 10:34:00 BP Systolic 2021-07-10 14:06:00 138 mm[Hg] BP Diastolic 2021-07-10 14:06:00 80 mm[Hg] Weight Measured 2021-07-10 14:06:00 308.00 pounds Height Measured 2021-07-10 14:06:00 Body Temperature 2021-07-10 14:06:00 Heart Rate 2021-07-10 14:06:00 Respiratory Rate 2021-07-10 14:06:00 BP Systolic 2021-02-19 14:25:00 138 mm[Hg] BP Diastolic 2021-02-19 14:25:00 69 mm[Hg] Weight Measured 2021-02-19 14:25:00 312.20 pounds Height Measured 2021-02-19 14:25:00 60.50 inches Body Temperature 2021-02-19 14:25:00 97.60 degrees Heart Rate 2021-02-19 14:25:00 78.00 /min Respiratory Rate 2021-02-19 14:25:00 BP Systolic 2020-11-19 14:46:00 143 mm[Hg] BP Diastolic 2020-11-19 14:46:00 66 mm[Hg] Weight Measured 2020-11-19 14:46:00 Height Measured 2020-11-19 14:46:00 61.00 inches Body Temperature 2020-11-19 14:46:00 97.30 degrees Heart Rate 2020-11-19 14:46:00 73.00 /min Respiratory Rate 2020-11-19 14:46:00 BP Systolic 2020-08-21 13:57:00 155 mm[Hg] BP Diastolic 2020-08-21 13:57:00 72 mm[Hg] Weight Measured 2020-08-21 13:57:00 308.00 pounds Height Measured 2020-08-21 13:57:00 61.00 inches Body Temperature 2020-08-21 13:57:00 98.10 degrees Heart Rate 2020-08-21 13:57:00 95.00 /min Respiratory Rate 2020-08-21 13:57:00 BP Systolic 2020-02-09 15:16:00 148 mm[Hg] BP Diastolic 2020-02-09 15:16:00 82 mm[Hg] Weight Measured 2020-02-09 15:16:00 290.00 pounds Height Measured 2020-02-09 15:16:00 61.00 inches Body Temperature 2020-02-09 15:16:00 Heart Rate 2020-02-09 15:16:00 Respiratory Rate 2020-02-09 15:16:00 BP Systolic 2019-11-15 15:13:00 121 mm[Hg] BP Diastolic 2019-11-15 15:13:00 81 mm[Hg] Weight Measured 2019-11-15 15:13:00 290.00 pounds Height Measured 2019-11-15 15:13:00 61.00 inches Body Temperature 2019-11-15 15:13:00 98.20 degrees Heart Rate 2019-11-15 15:13:00 60.00 /min Respiratory Rate 2019-11-15 15:13:00 BP Systolic 2019-11-02 16:42:00 153 mm[Hg] BP Diastolic 2019-11-02 16:42:00 64 mm[Hg] Weight Measured 2019-11-02 16:42:00 290.00 pounds Height Measured 2019-11-02 16:42:00 61.00 inches Body Temperature 2019-11-02 16:42:00 98.30 degrees Heart Rate 2019-11-02 16:42:00 91.00 /min Respiratory Rate 2019-11-02 16:42:00 BP Systolic 2019-10-10 17:46:00 141 mm[Hg] BP Diastolic 2019-10-10 17:46:00 75 mm[Hg] Weight Measured 2019-10-10 17:46:00 294.00 pounds Height Measured 2019-10-10 17:46:00 61.00 inches Body Temperature 2019-10-10 17:46:00 97.10 degrees Heart Rate 2019-10-10 17:46:00 89.00 /min Respiratory Rate 2019-10-10 17:46:00 Procedures Procedure Date / Time Performing Clinician Source Performed SLEEP STUDY DATA REPORT 2021-10-25 06:01:00 Doctor [facility] Medical Shushan ASSIGNMENT OF BENEFITS 2021-09-27 21:01:17 Doctor Unassigned, Un [facility] Name [facility] EXTERNAL PROVIDER RECORDS 2021-06-21 05:01:00 Doctor Unassigned, [facility] Name [facility] POCT GLUCOSE (AUTOMATED) 2021-06-03 17:07:00 Acacia Ferrer [facility] POCT GLUCOSE (AUTOMATED) 2021-06-03 13:21:00 Acacia Ferrer [facility] EXTERNAL PROVIDER RECORDS 2021-06-03 05:01:00 Doctor Unassigned, [facility] Name [facility] POCT GLUCOSE (AUTOMATED) 2021-06-03 01:09:00 Acacia Ferrer Uni [facility] POCT GLUCOSE (AUTOMATED) 2021-06-02 20:42:00 Acacia Ferrer Uni [facility] POCT GLUCOSE (AUTOMATED) 2021-06-02 16:34:00 Acacia Ferrer Uni [facility] POCT GLUCOSE (AUTOMATED) 2021-06-02 12:22:00 Acacia Ferrer [facility] BASIC METABOLIC PANEL (NA, 2021-06-02 05:06:00 Gertrude Rosario [facility] K, CL, CO2, GLUCOSE, BUN, Medica l Branch CREATININE, CA) POCT GLUCOSE (AUTOMATED) 2021-06-02 02:37:00 [facility] 2021-06-02 01:12:00 Acacia Ferrer [facility] POCT GLUCOSE (AUTOMATED) 2021-06-01 20:39:00 Acacia Ferrer Uni [facility] POCT GLUCOSE (AUTOMATED) 2021-06-01 16:47:00 Ezzo, [facility]) 2021-06-01 12:56:00 Carissa, [facility] MAGNESIUM 2021-06-01 10:37:[address] [facility] COMP. METABOLIC PANEL 2021-06-01 10:37:00 Rachna Hoang [facility] ([id number]) [facility] POCT GLUCOSE (AUTOMATED) 2021-06-01 01:43:00 EzAcacia sherman [facility] PO[facility]UCOSE (AUTOMATED) 2021-05-31 22:36:00 Acacia Ferrer Uni [facility] PROTEIN CREAT RATIO URINE 2021-05-31 19:58:00 Myles Rosario ra [facility] US RETROPERITONEAL LIMITED 2021-05-31 19:06:[address] [facility] POCT GLUCOSE (AUTOMATED) 2021-05-31 17:40:00 EzAcacia sherman Uni [facility] POCT GLUCOSE (AUTOMATED) 2021-05-31 13:22:00 Acacia Ferrer Uni [facility] MAGNESIUM 2021-05-31 08:44:00 Rachna Hoang [facility] COMP. METABOLIC PANEL 2021-05-31 08:44:00 Rachna Hoang [facility] ([id number]) [facility] POCT GLUCOSE (AUTOMATED) 2021-05-31 02:01:00 [facility] PO[facility]UCOSE (AUTOMATED) 2021-05-30 22:20:00 EzAcacia sherman [facility] PO[facility]UCOSE (AUTOMATED) 2021-05-30 17:02:00 [facility] PO[facility]UCOSE (AUTOMATED) 2021-05-30 13:17:00 [facility] MAGNESIUM 2021-05-30 10:18:[address] [facility] COMP. METABOLIC PANEL 2021-05-30 10:18:00 Rachna Hoang [facility] ([id number]) Medical Shushan POCT GLUCOSE (AUTOMATED) 2021-05-30 01:58:00 [facility] PO[facility]UCOSE (AUTOMATED) 2021-05-29 21:10:00 Acacia Ferrer Uni [facility] POCT GLUCOSE (AUTOMATED) 2021-05-29 17:16:00 Acacia Ferrer Uni [facility] POCT GLUCOSE (AUTOMATED) 2021-05-29 12:57:00 Acacia Ferrer [facility] BASIC METABOLIC PANEL (NA, 2021-05-29 09:56:00 Teqwimuah, Tk U niversity [facility] K, CL, CO2, GLUCOSE, BUN, Medica l Branch CREATININE, CA) POCT GLUCOSE (AUTOMATED) 2021-05-29 03:08:00 Acacia Ferrer Uni [facility] POCT GLUCOSE (AUTOMATED) 2021-05-28 22:05:00 Acacia Ferrer [facility] POCT GLUCOSE (AUTOMATED) 2021-05-28 17:39:00 Acacia Ferrer [facility] BASIC METABOLIC PANEL (NA, 2021-05-28 14:49:00 Teqwimuah, Tk [facility] [place] K, CL, CO2, GLUCOSE, BUN, Medica l Branch CREATININE, CA) ACTIVATED PARTIAL THRMPLAS 2021-05-28 14:49:00 Rachna Hoang [facility] POCT GLUCOSE (AUTOMATED) 2021-05-28 13:55:00 Acacia Ferrer [facility] CBC WITH DIFF 2021-05-28 11:40:00 Teqwimuah, Tk [facility] ACTIVATED PARTIAL THRMPLAS 2021-05-28 03:40:00 Teqwimuah, Tk U niversity [facility] POCT GLUCOSE (AUTOMATED) 2021-05-28 01:50:00 Acacia Ferrer Uni [facility] POCT GLUCOSE (AUTOMATED) 2021-05-27 22:40:00 Acacia Ferrer [facility] ACTIVATED PARTIAL THRMPLAS 2021-05-27 20:29:00 Teqwimuah, Tk [facility] TRANSTHORACIC ECHO (TTE) 2021-05-27 18:07:00 Rachna Hoang [facility] COMPLETE W/ CONTRAST Medical [facility] POCT GLUCOSE (AUTOMATED) 2021-05-27 16:58:00 Acacia Ferrer [facility] MAGNESIUM 2021-05-27 15:26:[address] [facility] BASIC METABOLIC PANEL (NA, 2021-05-27 15:26:00 Rachna Hoang [place] [facility] K, CL, CO2, GLUCOSE, BUN, Medica l Branch CREATININE, CA) POCT GLUCOSE (AUTOMATED) 2021-05-27 12:57:00 Acacia Ferrer [facility] EXTRA TUBE LT. GREEN 2021-05-27 10:52:00 Acacia Ferrer [facility] ACTIVATED PARTIAL THRMPLAS 2021-05-27 10:17:00 Dar Esquivel [facility] ACTIVATED PARTIAL THRMPLAS 2021-05-27 01:58:00 Rachna Hoang [facility] EXTRA TUBE LAV 2021-05-27 01:58:00 Acacia Ferrer o [facility] POCT GLUCOSE (AUTOMATED) 2021-05-27 00:50:00 Acacia Ferrer [facility] POCT GLUCOSE (AUTOMATED) 2021-05-26 21:53:00 Acacia Ferrer [facility] ACTIVATED PARTIAL THRMPLAS 2021-05-26 18:25:00 Rachna Hoang [facility] POCT GLUCOSE (AUTOMATED) 2021-05-26 16:43:00 Michael Raymond [facility] POCT GLUCOSE (AUTOMATED) 2021-05-26 13:16:00 Michael Raymond [facility] BASIC METABOLIC PANEL (NA, 2021-05-26 11:00:00 Crystal Almeida [facility] K, CL, CO2, GLUCOSE, BUN, Medica l Branch CREATININE, CA) CBC WITH DIFF 2021-05-26 11:00:00 Abu Atherah, Emran [facility] GLYCOSYLATED HEMOGLOBIN 2021-05-26 11:00:00 ViktorZohaibRachnablake [facility] ([id number]) [facility] POCT GLUCOSE (AUTOMATED) 2021-05-26 01:59:00 Michael Raymond [facility] POCT GLUCOSE (AUTOMATED) 2021-05-25 21:43:00 Michael Raymond [facility] MRSA / MSSA SCREEN BY PCR, 2021-05-25 20:30:00 Acacia Ferrer [facility] COVID-19 (ID NOW RAPID 2021-05-25 11:33:00 Michael Raymond [facility] TESTING) Medical Branch LAB ONLY COVID 2021-05-25 11:33:00 Singer [facility] URINALYSIS 2021-05-25 11:25:00 Singer [facility] HB ECG ROUTINE & RHYTHM 2021-05-25 10:45:01 Michael Raymond [facility] XR CHEST 1 VW 2021-05-25 10:44:22 Singer [facility] BLOOD CULTURE SCREEN 2021-05-25 10:37:00 Michael Raymond [facility] BLOOD CULTURE WORKUP 2021-05-25 10:37:00 Michael Raymond [facility] GRAM POSITIVE BLOOD 2021-05-25 10:37:00 Michael Raymond [facility] PATHOGENS DNA [facility] Branch PROBE-AEROBIC TROPONIN I 2021-05-25 10:31:00 Singer [facility] COMP. METABOLIC PANEL 2021-05-25 10:31:00 Michael Raymond [facility] ([id number]) [facility] N-TERMINAL PRO-BNP 2021-05-25 10:31:00 [facility] CBC WITH DIFF 2021-05-25 10:30:00 [facility] EKG-12 LEAD 2021-05-25 10:10:00 [facility] EMERGENCY DEPARTMENT 2021-05-25 05:01:00 Doctor Unassigned, Univ [facility] DOCUMENTS [facility] [id number] 2021-05-09 00:00:[address] [facility] [place] [id number] 2021-05-08 00:00:[address] [facility] [place] [id number] 2021-05-08 00:00:[address] [facility] [place] [id number] 2021-05-08 00:00:00 GREBR.01 [facility] Plan of Care Planned Activity Planned Date Details Comments Source Future Scheduled 2022-03-13 COVID-19 Vaccination [facility] [place] Test 17:41:13 (#1) [code = COVID-19 [facility] (#1)] Center Future Scheduled 2022-03-13 COVID-19 Vaccination [facility] [place] Test 17:41:13 (#1) [code = COVID-19 [facility] Vaccination (#1)] Center Future Scheduled 2022-03-13 COVID-19 Vaccination [facility] [place] Test 17:41:13 (#1) [code = COVID-19 [facility] Vaccination (#1)] Center Future Scheduled 2022-03-13 COVID-19 Vaccination [facility] [place] Test 17:41:13 (#1) [code = COVID-19 [facility] Vaccination (#1)] Center Future Scheduled 2022-03-13 COVID-19 Vaccination [facility] [place] Test 17:41:13 (#1) [code = COVID-19 [facility] Vaccination (#1)] Center Future Scheduled 2022-03-13 COVID-19 Vaccination [facility] [place] Test 17:41:13 (#1) [code = COVID-19 MD [facility] Vaccination (#1)] Center Future Scheduled COVID-19 Vaccination [facility] [place] Test (1) [code = COVID-19 Vaccination (1)] Goal Plan of Care Note [code = 28160-9] Goal Plan of Care Note [code = 86900-5] Goal Plan of Care Note [code = 78354-7] Goal Plan of Care Note [code = 74835-6] Goal Plan of Care Note [code = 46695-1] Goal Plan of Care Note [code = 17902-2] Goal Plan of Care Note [code = 47249-4] Goal Plan of Care Note [code = 37656-1] Goal Plan of Care Note [code = 08826-4] Goal Plan of Care Note [code = 20165-6] Goal Plan of Care Note [code = 35261-5] Goal Plan of Care Note [code = 16733-4] Goal Plan of Care Note [code = 34347-3] Goal Plan of Care Note [code = 90980-6] Goal Plan of Care Note [code = 91097-3] Goal Plan of Care Note [code = 30224-7] Goal Plan of Care Note [code = 85220-4] Goal Plan of Care Note [code = 43820-1] Goal Plan of Care Note [code = 28971-5] Goal Plan of Care Note [code = 01911-0] Goal Plan of Care Note [code = 48465-6] Goal Plan of Care Note [code = 53814-2] Goal Plan of Care Note [code = 74224-1] Goal Plan of Care Note [code = 48074-7] Goal Plan of Care Note [code = 81573-3] Goal Plan of Care Note [code = 85887-7] Goal Plan of Care Note [code = 85098-4] Goal Plan of Care Note [code = 42774-5] Goal Plan of Care Note [code = 84927-4] Goal Plan of Care Note [code = 44079-5] Goal Plan of Care Note [code = 02782-7] Goal Plan of Care Note [code = 84842-1] Goal Plan of Care Note [code = 36135-9] Goal Plan of Care Note [code = 45152-0] Goal Plan of Care Note [code = 93564-7] Goal Plan of Care Note [code = 63320-2] Goal Plan of Care Note [code = 31390-1] Goal Plan of Care Note [code = 06002-1] Goal Plan of Care Note [code = 78040-0] Goal Plan of Care Note [code = 90943-8] Goal Plan of Care Note [code = 03126-9] Goal Plan of Care Note [code = 76216-1] Goal Plan of Care Note [code = 30654-4] Goal Plan of Care Note [code = 05757-1] Goal Plan of Care Note [code = 17908-7] Goal Plan of Care Note [code = 74344-2] Goal Plan of Care Note [code = 72026-0] Goal Plan of Care Note [code = 09859-5] Goal Plan of Care Note [code = 57146-6] Goal Plan of Care Note [code = 81573-7] Goal Plan of Care Note [code = 79154-0] Encounters Start End Encounter Admission Attending Care Care Encounter Source Date/Time Date/Time Type Type Clinicians Facility Department ID 2021-10-23 [id number] [place] 09:19:51 [facility] 2021-03-08 [facility] [id number] [place] 01:04:08 [facility] 2021-01-16 [facility] [id number] [place] 11:42:44 [facility] 2020-01-24 Outpatient [facility] 7501 08:47:43 [facility] 2022-12-25 2022-12-25 Outpatient SFA SFA [id number] 023 Jc 15:32:36 15:32:36 0420 [facility] 2022-10-08 2022-10-08 Outpatient SFA SFA 38242-2 023 Jc 13:12:56 13:12:56 0201 [facility] 2022-09-23 2022-09-23 Outpatient SFA SFA [id number] 023 Jc 14:07:13 14:07:13 0117 [facility] 2022-09-22 2022-09-22 Outpatient SFA SFA 56031-7 023 Jc 14:58:14 14:58:14 0116 [facility] 2022-09-22 2022-09-22 Outpatient [id number] 00:00:00 00:00:00 Visit cdaf-4f16 daf-4f16-9 -3y52-72l i24-20i2n6 [id number] 5413-08-30 2022-05-06 Outpatient [id number] 45n8ek-8 00:00:00 00:00:00 Visit 7a63-51yb f52-58wx-5 -802b-ef5 02b-ef50db 6be80lvx4 60bdd1 2021-12-31 2021-12-[address] [facility] 1.2.840.114 [id number] [place] 09:45:00 12:29:18 Visit Fabian MED 350.1.13.58 [address] 9.2.7.2.686 [id number] 2 2021-11-05 2021-11-05 [facility] 08:29:00 16:00:00 FABIAN ruffin [facility] 2021-11-04 2021-11-04 Outpatient R AFSHAN GARIBAY [facility] [id number] Univers 19:30:00 19:30:00 AFSHAN GARIBAY rosalino [facility] 2021-10-25 2021-10-25 [place]im[place] Supervisor Brick 1, [facility] Sleep Lab Bed [facility] 1. 2.840.114 [id number] Univers 19:30:00 22:00:00 Visit Afshan Garibay 350.1.13. 10 ity [facility] 4.2.7.2.686 [facility] [id number] [facility] [address] 2021-10-25 2021-10-25 Outpatient R AFSHAN GARIBAY [facility] [id number] [facility] 19:30:00 19:30:00 AFSHAN GARIBAY [facility] 2021-10-25 2021-10-25 Orders Doctor TAPIA 1.2.840.114 [id number] Univers 00:00:00 00:00:00 Only Unassigned, OBEY 350.1.13.10 ity [facility] 4.2.7.2.686 [facility] [id number] [facility] [address]9 Branch 2021-10-08 2021-10-[address] [facility] 1.2.840.114 [id number] [place] 07:45:00 08:39:06 Encounter Fabian [facility] 350.1.13.58 Health [address] 1 9.2.7.2.686 [id number] 2 2021-10-01 2021-10-01 Outpatient R AFSHAN GARIBAY [facility] [id number] Univers 19:30:00 19:30:00 AFSHAN GARIBAY ity of [facility] 2021-09-27 2021-09-27 Laboratory Only, Adc Test [facility] 1.2.840. 114 [id number] Univers 15:00:00 15:15:00 Only Nataliia Perez 350.1.13.10 [place] [id number] [facility] [address] 2021-09-27 2021-09-27 Outpatient R ANA [facility] [id number] Univers 15:00:00 15:00:00 NATALIIA tejada [facility] 2021-09-27 2021-09-27 Orders Doctor TAPIA 1.2.840.114 [id number] Univers 00:00:00 00:00:00 Only Unassigned, OBEY 350.1.13.10 ity of [place] [facility] 4.2.7.2.686 Gianni as [id number] [facility] 009 Branch 2021-06-21 2021-06-21 Orders Doctor WILLIE 1.2.840.114 [id number] Univers 00:00:00 00:00:00 Only Unassigned, OBEY 350.1.13.10 ity of [place] [facility] 4.2.7.2.686 Gianni as [id number] [facility] 009 Branch 2021-06-04 2021-06-04 Transition GiovannaNikhil 1.2.840.114 [id number] Univers 00:00:00 00:00:00 of Care Lupe Prieto 350.1.13.10 it [place] [id number] [facility] [address] 2021-05-25 2021-06-03 Hospital Michael Raymond [facility] 1.2.840.1 14 [id number] Univers 05:22:00 21:20:00 Encounter Carissa [facility] [place] 350.1.13.10 [place] [id number] [facility] 113 Branch ([employer]) 2021-05-25 2021-05-25 Emergency X SINGER [facility] ERT [id number] Univers 05:22:00 05:22:00 MICHAEL ity [facility] 2021-05-08 2021-05-23 Inpatient SAEED Jenkins [facility] INTM.01 [id number] [facility] 11:40:00 18:33:00 Florentino 44 [facility] 2021-05-08 2021-05-08 Outpatient ASHLEE Jenkins REF [id number] [facility] 18:53:00 18:53:00 Florentino 90 [facility] are [facility] 2021-05-08 2021-05-08 EXT [facility] OP Preet, EXT MSRDP 1.2.840.114 1 [id number] [place] 00:00:00 00:00:00 Ad Espinosa LOCATION 350.1.13.58 Health 9.2.7.2.686 [id number] 0 2021-05-08 2021-05-08 EXT MHH OP Preet, EXT MSRDP 1.2.840.114 1 [id number] [place] 00:00:00 00:00:00 Ad Jesús LOCATION 350.1.13.58 Health 9.2.7.2.686 [id number] 0 2021-05-07 2021-05-07 Office JOSE Lopez [facility] 1.2.840.114 [id number] [place] 09:30:38 10:10:32 Visit [facility] MED 350.1.13.58 He [address] 9.2.7.2.686 [id number] 2 2021-05-07 2021-05-07 Office JOSE Lopez H 1.2.840.114 [id number] 784 09:30:38 10:10:32 Visit Fabian SE MED 350.1.13.58 [address] 1 9.2.7.2.686 [id number] 2 2021-02-05 2021-02-05 Outpatient LONNIE LOPEZ MHSE 7503 08:46:00 15:45:00 FABIAN ruffin [facility] 2020-11-29 2020-11-29 Orders nullJeseniao MD [facility] 1077 [id number] Memoria 00:00:00 00:00:00 Only richie Damon 2020-06-15 2020-06-15 Office nullFlavo MD [place] [id number] [facility] 16:30:00 17:00:00 Visit r in [place] 2020-06-15 2020-06-15 Outpatient SAEED HIDALGO MDA MDA [id number] 00:00:00 00:00:00 OSVALDO uqevedo 2020-01-27 2020-01-27 Outpatient E MOVVA, MHSE MED 7502 08:12:00 12:48:[address] [facility] 2019-10-20 2019-10-20 Outpatient MHSE [facility]SE 7500 05:20:00 05:20:[address] [facility] Results Test Description Test Time Test Comments Results Result Comments Source URIC ACID 2022-09-24 04:35:28 Test Item Value Reference Range Interpretation Comme nts URIC ACID (test code = 2233) 10.4 MG/DL 2.7-6.1 H UNLESS OTHERWISE INDICATED, ALL TESTING PERFORM ED ATCLINICAL PATHOLOGY [employer]. [address] [place] [address] DIRECTOR OF CUSTOMER ACQUISITION: PRISCILLA FELIX M.D. CLIA NUMBER [id number] CAP ACCREDITATION N O. [id number] COMPREHENSIVE METABOLIC [id number] 04:35:28 Test Item Value Reference Range Interpretation Comments GLUCOSE (test code = 120 MG/DL 70-99 H 2216) BUN (test code = 52 MG/DL 8-23 H 2207) CREATININE (test 2.18 MG/DL 0.60-1.30 H code = 2214) eGFR (2020 CKD-EPI) 24 ML/MIN/1.73 >60 L (test code = 99681) CALC BUN/CREAT (test 24 RATIO 6-28 code = 2235) SODIUM (test code = 146 MEQ/L 331-496 4743) POTASSIUM (test code 4.5 MEQ/L 3.5-5.4 = 2228) CHLORIDE (test code 102 MEQ/L 95-107 = 2215) CARBON DIOXIDE (test 32 MEQ/L 19-31 H code = 2206) CALCIUM (test code = 9.5 MG/DL 8.5-10.5 2208) PROTEIN, TOTAL (test 6.4 G/DL 6.1-8.3 code = 2229) ALBUMIN (test code = 3.9 G/DL 3.5-5.2 2200) CALC GLOBULIN (test 2.5 G/DL 1.9-3.7 code = 2240) CALC A/G RATIO (test 1.6 RATIO 1.0-2.6 code = 2234) BILIRUBIN, TOTAL 0.3 MG/DL See_Comment [Automated message] (test code = 2207) The syste m which generated this result transmit cathy reference range : <=1.2. The refe rence range was not u sed to interpret th is result as normal/abnormal . ALKALINE PHOSPHATASE 99 U/L 40-142 (test code = 2204) AST (test code = 12 U/L 9-40 2217) ALT (test code = 10 U/L 5-40 2218) LIPID [id number] 04:35:28 Test Item Value Reference Range Interpretation Comments CHOLESTEROL (test 116 MG/DL <200 code = 2210) TRIGLYCERIDES (test 163 MG/DL <150 H code = 2232) HDL CHOLESTEROL (test 27 MG/DL >39 L code = 2220) CALC LDL CHOL (test 65 MG/DL <100 NOTE: C ALCULATED LDL code = 2237) IS BASED ON AGUILAR-ARROYO METHOD WHICHINCLUDES ADJUSTABLE TRIGLYCERIDE:VL DL CHOLESTEROL RAT IO.THIS FACTOR VARIES B Y MEASURED TRIGLY CERIDE AND NON-HDLCHOL ESTEROL CONCENTRATIONS WITH INCREASED CALCU LATED LDL SEENIN HIGH ER TRIGLYCERIDE OR LOWER NON-HDL SPECIME NS. FOR MOREINFORMATION , SEE CLIENT ANNOUNCE MENT AT [email or web address] RISK RATIO LDL/HDL 2.41 RATIO <3.22 (test code = 2238) HEMOGLOBIN [id number] 04:25:12 Test Item Value Reference Range Interpretation Comments HEMOGLOBIN A1c (test 9.6 % 4.2-5.6 H AMERIC AN DIABETES code = 85745) ASSOCIATION IDELINES FOR HGB A1C: PREDIABETES/INC REASED RISK . . . . . . . 5.7 -6.4% DIAGNOSIS OF DI ABETES . . . . . . . . . >=6 .5% WITH CONFIRMATION OR APPROPRIATE SYMPTOMS NOTE: ASSAY MAY BE AFFECTED BY HEMOGLOBINOPATH IES (SICKLE CELL ANEMIA, S- C DISEASE, OTHERS) OR NITHYA FICIALLY LOWERED BY DECR EASED RED CELL SURVIVAL ( HEMOLYTIC ANEMIAS, BLOOD LOSS, ETC.). CONSIDER ALTERN ATE TESTING OR LABORATORY C ONSULTATION. ALBUMIN/CREATININE RATIO, URINE, [id number] 04:00:10 Test Item Value Reference Range Interpretation Comments CREATININE, URINE, 81.9 MG/DL NOT ESTAB CONC. (test code = 2072) ALBUMIN, URINE, 8.5 MG/DL NOT ESTAB RANDOM (test code = 39935) CALC ALBUMIN/CREAT, 104 MG/G <30 H Note: RND (test code = Albumin/Cre atinine 81066) ratio reference interval reflec ts ADA and NKF guideli samir. POCT GLUCOSE (AUTOMATED)2021-06-03 17:32:53 Test Item Value Reference Range Interpretation Comments POCT GLU (test code = 6265099652) 147 mg/dL 70-110 H Lab Interpretation (test code = Abnormal 64630-5) [facility] GLUCOSE (AUTOMATED)2021-06-03 13:30:58 Test Item Value Reference Range Interpretation Comments POCT GLU (test code = 6661271468) 105 mg/dL 70-110 Lab Interpretation (test code = Normal 88483-7) [facility] GLUCOSE (AUTOMATED)2021-06-03 01:10:52 Test Item Value Reference Range Interpretation Comments POCT GLU (test code = 2989171005) 193 mg/dL 70-110 H Lab Interpretation (test code = Abnormal 59255-1) [facility] GLUCOSE (AUTOMATED)2021-06-02 20:51:49 Test Item Value Reference Range Interpretation Comments POCT GLU (test code = 8768082868) 177 mg/dL 70-110 H Lab Interpretation (test code = Abnormal 15631-0) [facility] GLUCOSE (AUTOMATED)2021-06-02 16:52:35 Test Item Value Reference Range Interpretation Comments POCT GLU (test code = 5879903162) 161 mg/dL 70-110 H Lab Interpretation (test code = Abnormal 85793-2) [facility] GLUCOSE (AUTOMATED)2021-06-02 12:34:49 Test Item Value Reference Range Interpretation Comments POCT GLU (test code = 0670120870) 94 mg/dL 70-110 Lab Interpretation (test code = Normal 70800-5) [facility] METABOLIC PANEL (NA, K, CL, CO2, GLUCOSE, BUN, CREATININE, CA)2021-06-02 06:19:02 Test Item Value Reference Range Interpretation Comments NA (test code = 136 mmol/L 135-145 1402897350) K (test code = 4.0 mmol/L 3.5-5.0 6087943073) CL (test code = 99 mmol/L 98-108 7963425501) CO2 TOTAL (test code = 32 mmol/L 23-31 H 7691826987) AGAP (test code = 2-16 4416356558) BUN (test code = 90 mg/dL 7-23 H 4428823880) GLUCOSE (test code = 94 mg/dL 70-110 7128784388) CREATININE (test code = 2.39 mg/dL 0.50-1.04 H 7004589943) CALCIUM (test code = 8.5 mg/dL 8.6-10.6 L 3057001176) eGFR (test code = mL/min/1.73m2 1279546751) JONATHAN (test code = JONATHAN) Association of Glomerular Filtration Rate (GFR) and Staging of Kidney Disease* + --+ --+ ------+| GFR (mL/min/1.73 m2) ?| With Kidney Damage ?| ?Without Kidney Damage+ --------+ --------+ +| ?>90 ?| ?Stage one ?| ? Normal ?+ ---+ ---+ -------+| ?60-89 ?| ?Stage two ?| ? Decreased GFR ? + --+ --+ ------+| ?30-59 ?| ?Stage three ?| ? Stage three ? + --+ --+ ------+| ?15-29 ?| ?Stage four ? | ? Stage four ?+ ---+ ---+ -------+| ?<15 (or dialysis) ? ?| ?Stage five ? | ? Stage five ?+ ---+ ---+ -------+ *Each stage assumes the associated GFR level has been in effect for at least three months. ?Stages 1 to 5, with or without kidney disease, indicate chronic kidney disease. Notes: Determination of stages one and two (with eGFR >59mL/min/1.73 m2) requires estimation of kidney damage for at least three months as defined by structural or functional abnormalities of the kidney, manifested by either:Pathological abnormalities or Markers of kidney damage (including abnormalities in the composition of the blood or urine or abnormalities in imaging tests). Lab Interpretation Abnormal (test code = 62459-8) [facility] GLUCOSE (AUTOMATED)2021-06-02 02:53:39 Test Item Value Reference Range Interpretation Comments POCT GLU (test code = 1106294248) 157 mg/dL 70-110 H Lab Interpretation (test code = Abnormal 49276-9) [facility] GLUCOSE (AUTOMATED)2021-06-02 02:53:34 Test Item Value Reference Range Interpretation Comments POCT GLU (test code = 6417741461) 195 mg/dL 70-110 H Lab Interpretation (test code = Abnormal 40885-1) [facility] GLUCOSE (AUTOMATED)2021-06-02 02:53:34 Test Item Value Reference Range Interpretation Comments POCT GLU (test code = 8920077419) 149 mg/dL 70-110 H Lab Interpretation (test code = Abnormal 80769-5) [facility] GLUCOSE (AUTOMATED)2021-06-01 16:58:33 Test Item Value Reference Range Interpretation Comments POCT GLU (test code = 0513989412) 196 mg/dL 70-110 H Lab Interpretation (test code = Abnormal 04420-5) [facility] GLUCOSE (AUTOMATED)2021-06-01 12:58:56 Test Item Value Reference Range Interpretation Comments POCT GLU (test code = 9024961370) 99 mg/dL 70-110 Lab Interpretation (test code = Normal 39474-9) [facility] Test Item Value Reference Range Interpretation Comments MAGNESIUM (test code = 7225196903) 2.5 mg/dL 1.7-2.4 H Lab Interpretation (test code = Abnormal 58892-4) [facility]. METABOLIC PANEL (82185)2021-06-01 11:48:06 Test Item Value Reference Range Interpretation Comments NA (test code = 139 mmol/L 135-145 8166812491) K (test code = 3.8 mmol/L 3.5-5.0 7195684288) CL (test code = 101 mmol/L 98-108 7259657663) CO2 TOTAL (test code = 30 mmol/L 23-31 4093635460) AGAP (test code = 2-16 5554565264) BUN (test code = 85 mg/dL 7-23 H 6958575821) GLUCOSE (test code = 80 mg/dL 70-110 2244928249) CREATININE (test code = 2.66 mg/dL 0.50-1.04 H 1932293988) TOTAL BILI (test code = 0.3 mg/dL 0.1-1.1 0396783315) CALCIUM (test code = 8.2 mg/dL 8.6-10.6 L 2775382441) T PROTEIN (test code = 5.4 g/dL 6.3-8.2 L 9654364585) ALBUMIN (test code = 2.8 g/dL 3.5-5.0 L 2949105355) ALK PHOS (test code = 95 U/L 34-122 0856466487) ALTv (test code = 15 U/L 5-35 1742-6) AST(SGOT) (test code = 15 U/L 13-40 8469620584) eGFR (test code = mL/min/1.73m2 8949076262) JONATHAN (test code = JONATHAN) Association of Glomerular Filtration Rate (GFR) and Staging of Kidney Disease* + --+ --+ ------+| GFR (mL/min/1.73 m2) ?| With Kidney Damage ?| ?Without Kidney Damage+ --------+ --------+ +| ?>90 ?| ?Stage one ?| ? Normal ?+ ---+ ---+ -------+| ?60-89 ?| ?Stage two ?| ? Decreased GFR ? + --+ --+ ------+| ?30-59 ?| ?Stage three ?| ? Stage three ? + --+ --+ ------+| ?15-29 ?| ?Stage four ? | ? Stage four ?+ ---+ ---+ -------+| ?<15 (or dialysis) ? ?| ?Stage five ? | ? Stage five ?+ ---+ ---+ -------+ *Each stage assumes the associated GFR level has been in effect for at least three months. ?Stages 1 to 5, with or without kidney disease, indicate chronic kidney disease. Notes: Determination of stages one and two (with eGFR >59mL/min/1.73 m2) requires estimation of kidney damage for at least three months as defined by structural or functional abnormalities of the kidney, manifested by either:Pathological abnormalities or Markers of kidney damage (including abnormalities in the composition of the blood or urine or abnormalities in imaging tests). Lab Interpretation Abnormal (test code = 78409-1) [facility] GLUCOSE (AUTOMATED)2021-06-01 01:45:09 Test Item Value Reference Range Interpretation Comments POCT GLU (test code = 172 mg/dL 70-110 H Notifi ed Provider [id number]) Lab Interpretation (test Abnormal code = 57889-3) [facility] GLUCOSE (AUTOMATED)2021-05-31 22:37:53 Test Item Value Reference Range Interpretation Comments POCT GLU (test code = 8336833012) 161 mg/dL 70-110 H Lab Interpretation (test code = Abnormal 53909-0) [facility] GLUCOSE (AUTOMATED)2021-05-31 17:41:51 Test Item Value Reference Range Interpretation Comments POCT GLU (test code = 0147815027) 184 mg/dL 70-110 H Lab Interpretation (test code = Abnormal 61172-5) [facility] GLUCOSE (AUTOMATED)2021-05-31 13:23:34 Test Item Value Reference Range Interpretation Comments POCT GLU (test code = 5384878129) 100 mg/dL 70-110 Lab Interpretation (test code = Normal 99776-8) [facility]. METABOLIC PANEL (62279)2021-05-31 09:34:08 Test Item Value Reference Range Interpretation Comments NA (test code = 136 mmol/L 135-145 6908627570) K (test code = 4.2 mmol/L 3.5-5.0 0996728758) CL (test code = 102 mmol/L 98-108 7541773009) CO2 TOTAL (test code = 29 mmol/L 23-31 6949958306) AGAP (test code = 2-16 5796037243) BUN (test code = 83 mg/dL 7-23 H 1074862833) GLUCOSE (test code = 76 mg/dL 70-110 2438735401) CREATININE (test code = 2.71 mg/dL 0.50-1.04 H 6858201731) TOTAL BILI (test code = 0.3 mg/dL 0.1-1.6 5884219676) CALCIUM (test code = 8.3 mg/dL 8.6-10.6 L 5642707756) T PROTEIN (test code = 5.4 g/dL 6.3-8.2 L 8321640614) ALBUMIN (test code = 2.8 g/dL 3.5-5.0 L 6443855743) ALK PHOS (test code = 97 U/L 34-122 7778397290) ALTv (test code = 15 U/L 5-35 1742-6) AST(SGOT) (test code = 18 U/L 13-40 5915198400) eGFR (test code = mL/min/1.73m2 5975000113) JONATHAN (test code = JONATHAN) Association of Glomerular Filtration Rate (GFR) and Staging of Kidney Disease* + --+ --+ ------+| GFR (mL/min/1.73 m2) ?| With Kidney Damage ?| ?Without Kidney Damage+ --------+ --------+ +| ?>90 ?| ?Stage one ?| ? Normal ?+ ---+ ---+ -------+| ?60-89 ?| ?Stage two ?| ? Decreased GFR ? + --+ --+ ------+| ?30-59 ?| ?Stage three ?| ? Stage three ? + --+ --+ ------+| ?15-29 ?| ?Stage four ? | ? Stage four ?+ ---+ ---+ -------+| ?<15 (or dialysis) ? ?| ?Stage five ? | ? Stage five ?+ ---+ ---+ -------+ *Each stage assumes the associated GFR level has been in effect for at least three months. ?Stages 1 to 5, with or without kidney disease, indicate chronic kidney disease. Notes: Determination of stages one and two (with eGFR >59mL/min/1.73 m2) requires estimation of kidney damage for at least three months as defined by structural or functional abnormalities of the kidney, manifested by either:Pathological abnormalities or Markers of kidney damage (including abnormalities in the composition of the blood or urine or abnormalities in imaging tests). Lab Interpretation Abnormal (test code = 61900-3) [facility] 09:34:08 Test Item Value Reference Range Interpretation Comments MAGNESIUM (test code = 5305760559) 2.4 mg/dL 1.7-2.4 Lab Interpretation (test code = Normal 99980-1) [facility] GLUCOSE (AUTOMATED)2021-05-31 02:02:05 Test Item Value Reference Range Interpretation Comments POCT GLU (test code = 160 mg/dL 70-110 H Notifi ed Provider [id number]) Lab Interpretation (test Abnormal code = 74597-6) [facility] GLUCOSE (AUTOMATED)2021-05-30 22:21:35 Test Item Value Reference Range Interpretation Comments POCT GLU (test code = 9227835923) 205 mg/dL 70-110 H Lab Interpretation (test code = Abnormal 66687-2) [facility] [id number] 21:10:39 Test Item Value Reference Range Interpretation Comments Blood Culture Coagulase negative Organism identified Workup (test Staphylococcus by DNA code = 600-7) probeAdditiona l work-up perform ed only per reques t. Culture plate(s ) will be saved until this date: - 021 Gram stain Isolated from This is an alina ended (test code = anaerobic bottle report. The se results 664-3) Gram positive cocci have bee n appended to a previously preliminary benji ified report. [facility] GLUCOSE (AUTOMATED)2021-05-30 17:04:06 Test Item Value Reference Range Interpretation Comments POCT GLU (test code = 8360834027) 166 mg/dL 70-110 H Lab Interpretation (test code = Abnormal 23765-6) [facility] GLUCOSE (AUTOMATED)2021-05-30 13:18:06 Test Item Value Reference Range Interpretation Comments POCT GLU (test code = 8284508713) 101 mg/dL 70-110 Lab Interpretation (test code = Normal 50801-6) [facility]. METABOLIC PANEL (78106)2021-05-30 11:20:09 Test Item Value Reference Range Interpretation Comments NA (test code = 139 mmol/L 135-145 2123615262) K (test code = 4.3 mmol/L 3.5-5.0 9355593184) CL (test code = 102 mmol/L 98-108 0486027376) CO2 TOTAL (test code = 29 mmol/L 23-31 5919353662) AGAP (test code = 2-16 2450569453) BUN (test code = 75 mg/dL 7-23 H 6981610961) GLUCOSE (test code = 91 mg/dL 70-110 7003344317) CREATININE (test code = 2.67 mg/dL 0.50-1.04 H 5147976638) TOTAL BILI (test code = 0.4 mg/dL 0.1-1.3 7244860529) CALCIUM (test code = 8.4 mg/dL 8.6-10.6 L 2644472397) T PROTEIN (test code = 5.4 g/dL 6.3-8.2 L 7976962346) ALBUMIN (test code = 2.8 g/dL 3.5-5.0 L 8954266826) ALK PHOS (test code = 96 U/L 34-122 4648094648) ALTv (test code = 15 U/L 5-35 1742-6) AST(SGOT) (test code = 18 U/L 13-40 7600876063) eGFR (test code = mL/min/1.73m2 1861641924) JONATHAN (test code = JONATHAN) Association of Glomerular Filtration Rate (GFR) and Staging of Kidney Disease* + --+ --+ ------+| GFR (mL/min/1.73 m2) ?| With Kidney Damage ?| ?Without Kidney Damage+ --------+ --------+ +| ?>90 ?| ?Stage one ?| ? Normal ?+ ---+ ---+ -------+| ?60-89 ?| ?Stage two ?| ? Decreased GFR ? + --+ --+ ------+| ?30-59 ?| ?Stage three ?| ? Stage three ? + --+ --+ ------+| ?15-29 ?| ?Stage four ? | ? Stage four ?+ ---+ ---+ -------+| ?<15 (or dialysis) ? ?| ?Stage five ? | ? Stage five ?+ ---+ ---+ -------+ *Each stage assumes the associated GFR level has been in effect for at least three months. ?Stages 1 to 5, with or without kidney disease, indicate chronic kidney disease. Notes: Determination of stages one and two (with eGFR >59mL/min/1.73 m2) requires estimation of kidney damage for at least three months as defined by structural or functional abnormalities of the kidney, manifested by either:Pathological abnormalities or Markers of kidney damage (including abnormalities in the composition of the blood or urine or abnormalities in imaging tests). Lab Interpretation Abnormal (test code = 04005-4) [facility] 11:20:09 Test Item Value Reference Range Interpretation Comments MAGNESIUM (test code = 3780518729) 2.2 mg/dL 1.7-2.4 Lab Interpretation (test code = Normal 96305-8) [facility] [id number] 11:01:18 Test Item Value Reference Range Interpretation Comments Blood Culture-Aerobic No organisms No growth Previo us (test code = 54666-4) isolated prelim inary verified result was Culture In Progress on 05/25/2021 at 05 08 CDTPrevious preliminary verified result was No growth a t 24 hours on 05/26/2021 at 02 05 CDTPrevious preliminary verified result was No growth a t 48 hours on 05/27/2021 at 02 05 CDTPrevious preliminary verified result was No growth a t 72 hours on 05/28/2021 at 06 01 CDT Blood No organisms No growth Previous Culture-Anaerobic isolated preliminar y (test code = 13596-4) verifi ed result was Culture In Progress on 05/25/2021 at 05 08 CDTPrevious preliminary verified result was No growth a t 24 hours on 05/26/2021 at 06 CDTPrevious preliminary verified result was No growth a t 48 hours on 05/27/2021 at 02 05 CDTPrevious preliminary verified result was No growth a t 72 hours on 05/28/2021 at 06 01 CDT Lab Interpretation Normal (test code = 27998-2) [facility]2021-05-30 01:59:35 Test Item Value Reference Range Interpretation Comments POCT GLU (test code = 8373640903) 142 mg/dL 70-110 H Lab Interpretation (test code = Abnormal 86185-9) [facility] GLUCOSE (AUTOMATED)2021-05-29 21:12:32 Test Item Value Reference Range Interpretation Comments POCT GLU (test code = 6664700799) 167 mg/dL 70-110 H Lab Interpretation (test code = Abnormal 70139-7) [facility] GLUCOSE (AUTOMATED)2021-05-29 17:17:54 Test Item Value Reference Range Interpretation Comments POCT GLU (test code = 4479026205) 220 mg/dL 70-110 H Lab Interpretation (test code = Abnormal 05416-9) [facility] GLUCOSE (AUTOMATED)2021-05-29 12:58:49 Test Item Value Reference Range Interpretation Comments POCT GLU (test code = 3678658331) 93 mg/dL 70-110 Lab Interpretation (test code = Normal 36500-3) [facility] METABOLIC PANEL (NA, K, CL, CO2, GLUCOSE, BUN, CREATININE, CA)2021-05-29 10:45:02 Test Item Value Reference Range Interpretation Comments NA (test code = 140 mmol/L 135-145 0592099362) K (test code = 4.3 mmol/L 3.5-5.0 Slight 5697190193) hemolysis CL (test code = 103 mmol/L 98-108 3349821353) CO2 TOTAL (test code 32 mmol/L 23-31 H = 8743419835) AGAP (test code = 2-16 8265705664) BUN (test code = 71 mg/dL 7-23 H Slight 6434771726) hemolysis GLUCOSE (test code = 60 mg/dL 70-110 L 9020966327) CREATININE (test code 2.17 mg/dL 0.50-1.04 H = 6357737406) CALCIUM (test code = 8.8 mg/dL 8.6-10.6 6155170459) eGFR (test code = mL/min/1.73m2 5645481142) JONATHAN (test code = JONATHAN) Association of Glomerular Filtration Rate (GFR) and Staging of Kidney Disease* + -----+ --------+ +| GFR (mL/min/1.73 m2) ?| With Kidney Damage ?| ?Without Kidney Damage+ +------- +---- --+| ?>90 ?| ?Stage one ?| ? Normal ?+ ------+ ---------+--------- +| ?60-89 ?| ?Stage two ?| ? Decreased GFR ? + -----+ --------+ +| ?30-59 ?| ?Stage three ?| ? Stage three ? + -----+ --------+ +| ?15-29 ?| ?Stage four ? | ? Stage four ?+ ------+ ---------+--------- +| ?<15 (or dialysis) ? ?| ?Stage five ? | ? Stage five ?+ ------+ ---------+--------- + *Each stage assumes the associated GFR level has been in effect for at least three months. ?Stages 1 to 5, with or without kidney disease, indicate chronic kidney disease. Notes: Determination of stages one and two (with eGFR >59mL/min/1.73 m2) requires estimation of kidney damage for at least three months as defined by structural or functional abnormalities of the kidney, manifested by either:Pathological abnormalities or Markers of kidney damage (including abnormalities in the composition of the blood or urine or abnormalities in imaging tests). Lab Interpretation Abnormal (test code = 86517-9) [facility] GLUCOSE (AUTOMATED)2021-05-29 03:09:46 Test Item Value Reference Range Interpretation Comments POCT GLU (test code = 5886702052) 158 mg/dL 70-110 H Lab Interpretation (test code = Abnormal 37727-3) [facility] GLUCOSE (AUTOMATED)2021-05-28 22:17:36 Test Item Value Reference Range Interpretation Comments POCT GLU (test code = 2169224926) 166 mg/dL 70-110 H Lab Interpretation (test code = Abnormal 29385-7) [facility] GLUCOSE (AUTOMATED)2021-05-28 17:41:02 Test Item Value Reference Range Interpretation Comments POCT GLU (test code = 0813221703) 205 mg/dL 70-110 H Lab Interpretation (test code = Abnormal 52339-9) [facility] (NA, K, CL, CO2, GLUCOSE, BUN, CREATININE, CA)2021-05-28 15:57:39 Test Item Value Reference Range Interpretation Comments NA (test code = 140 mmol/L 135-145 8488939840) K (test code = 4.4 mmol/L 3.5-5.0 6283186610) CL (test code = 104 mmol/L 98-108 9132750208) CO2 TOTAL (test code = 30 mmol/L 23-31 5971102360) AGAP (test code = 2-16 3850187505) BUN (test code = 68 mg/dL 7-23 H 2653549011) GLUCOSE (test code = 87 mg/dL 70-110 1707189697) CREATININE (test code = 2.25 mg/dL 0.50-1.04 H 7750132691) CALCIUM (test code = 8.7 mg/dL 8.6-10.6 9976639392) eGFR (test code = mL/min/1.73m2 3531364827) JONATHAN (test code = JONATHAN) Association of Glomerular Filtration Rate (GFR) and Staging of Kidney Disease* + --+ --+ ------+| GFR (mL/min/1.73 m2) ?| With Kidney Damage ?| ?Without Kidney Damage+ --------+ --------+ +| ?>90 ?| ?Stage one ?| ? Normal ?+ ---+ ---+ -------+| ?60-89 ?| ?Stage two ?| ? Decreased GFR ? + --+ --+ ------+| ?30-59 ?| ?Stage three ?| ? Stage three ? + --+ --+ ------+| ?15-29 ?| ?Stage four ? | ? Stage four ?+ ---+ ---+ -------+| ?<15 (or dialysis) ? ?| ?Stage five ? | ? Stage five ?+ ---+ ---+ -------+ *Each stage assumes the associated GFR level has been in effect for at least three months. ?Stages 1 to 5, with or without kidney disease, indicate chronic kidney disease. Notes: Determination of stages one and two (with eGFR >59mL/min/1.73 m2) requires estimation of kidney damage for at least three months as defined by structural or functional abnormalities of the kidney, manifested by either:Pathological abnormalities or Markers of kidney damage (including abnormalities in the composition of the blood or urine or abnormalities in imaging tests). Lab Interpretation Abnormal (test code = 03473-8) [facility] [id number] 15:10:52 Test Item Value Reference Range Interpretation Comments APTT Patient (test code See_Comment H [Au tomated message] = 3173-2) The system [employer] h generated this result transmitted ref erence range: 26 - 36 Seconds. The reference range was not used to int erpret this result as normal/abnormal . Lab Interpretation (test Abnormal code = 60137-8) [facility]2021-05-28 14:02:53 Test Item Value Reference Range Interpretation Comments POCT GLU (test code = 6082355878) 100 mg/dL 70-110 Lab Interpretation (test code = Normal 71582-4) [facility] WITH [id number] 12:03:46 Test Item Value Reference Range Interpretation Comments WBC (test code = See_Comment [Automated 6690-2) message] The sy stem which generated this result transmitted reference range : 4.30 - 11.10 10*3/?L. The reference range was not used to interpret this result as normal/abnormal . RBC (test code = See_Comment L [Automated 789-8) message] The sy stem which generated this result transmitted reference range : 3.93 - 5.25 10*6/?L. The reference range was not used to interpret this result as normal/abnormal . HGB (test code = 10.2 g/dL 11.6-15.0 L 718-7) HCT (test code = 31.6 % 35.7-45.2 L 4544-3) MCV (test code = 97.8 fL 80.6-95.5 H 787-2) MCH (test code = 31.6 pg 25.9-32.8 785-6) MCHC (test code = 32.3 g/dL 31.6-35.1 786-4) RDW-SD (test code = 54.3 fL 39.0-49.9 H 06164-8) RDW-CV (test code = 15.1 % 12.0-15.5 788-0) PLT (test code = See_Comment [Automated 777-3) message] The sy stem which generated this result transmitted reference range : 166 - 358 10*3/ ?L. The reference r comfort was not used to interpret this result as normal/abnormal . MPV (test code = 10.7 fL 9.5-12.9 54876-9) NRBC/100 WBC (test See_Comment [Automat ed code = 7153830836) message] The system which generated this result transmitted reference range : 0.0 - 10.0 /100 WBCs. The refer ence range was not u sed to interpret th is result as normal/abnormal . NRBC x10^3 (test code <0.01 See_Comment [Auto mated = 0980119302) message] The s ystem which generated this result transmitted reference range : 10*3/?L. The reference range was not used to interpret this result as normal/abnormal . GRAN MAT (NEUT) % 72.6 % (test code = 770-8) IMM GRAN % (test code 0.40 % = 0411507503) LYMPH % (test code = 10.6 % 736-9) MONO % (test code = 10.9 % 5905-5) EOS % (test code = 4.7 % 713-8) BASO % (test code = 0.8 % 706-2) GRAN MAT x10^3(ANC) 6.51 10*3/uL 1.88-7.09 (test code = 8761355552) IMM GRAN x10^3 (test 0.04 10*3/uL 0.00-0.06 code = 9066098263) LYMPH x10^3 (test code 0.95 10*3/uL 1.32-3.29 L = 731-0) MONO x10^3 (test code 0.98 10*3/uL 0.33-0.92 H = 742-7) EOS x10^3 (test code = 0.42 10*3/uL 0.03-0.39 H 711-2) BASO x10^3 (test code 0.07 10*3/uL 0.01-0.07 = 704-7) Lab Interpretation Abnormal (test code = 92177-3) [facility] [id number] 03:56:30 Test Item Value Reference Range Interpretation Comments APTT Patient (test code See_Comment H [Au tomated message] = 3173-2) The system [employer] generated this result transmitted ref erence range: 26 - 36 Seconds. The reference range was not used to int erpret this result as normal/abnormal . Lab Interpretation (test Abnormal code = 44771-0) [facility] GLUCOSE (AUTOMATED)2021-05-28 01:51:57 Test Item Value Reference Range Interpretation Comments POCT GLU (test code = 0078841088) 157 mg/dL 70-110 H Lab Interpretation (test code = Abnormal 34510-4) [facility] GLUCOSE (AUTOMATED)2021-05-27 22:45:24 Test Item Value Reference Range Interpretation Comments POCT GLU (test code = 5655384855) 115 mg/dL 70-110 H Lab Interpretation (test code = Abnormal 01755-0) [facility] [id number] 20:47:50 Test Item Value Reference Range Interpretation Comments APTT Patient (test code See_Comment H [Au tomated message] = 3173-2) The system [employer] generated this result transmitted ref erence range: 26 - 36 Seconds. The reference range was not used to int erpret this result as normal/abnormal . Lab Interpretation (test Abnormal code = 72859-5) [facility] GLUCOSE (AUTOMATED)2021-05-27 16:59:28 Test Item Value Reference Range Interpretation Comments POCT GLU (test code = 5948845367) 155 mg/dL 70-110 H Lab Interpretation (test code = Abnormal 92133-0) [facility] [id number] 16:36:54 Test Item Value Reference Range Interpretation Comments Blood Culture-Aerobic Culture positive. No growth AA P revious (test code = 75507-2) See Blood Culture p reliminary Workup for verified result additional was Culture In information. Progress on 05/25/2021 at 09 01 CDTPrevious preliminary verified result was No growth a t 24 hours on 05/26/2021 at 06 01 CDT Blood Culture positive. No growth AA Previous Culture-Anaerobic See Blood Culture preli minary (test code = 46139-0) Workup for verifi ed result additional was Culture In information. Progress on 05/25/2021 at 09 01 CDTPrevious preliminary verified result was No growth a t 24 hours on 05/26/2021 at 10 34 CDT Lab Interpretation Abnormal (test code = 16201-4) [facility] METABOLIC PANEL (NA, K, CL, CO2, GLUCOSE, BUN, CREATININE, CA)2021-05-27 16:18:19 Test Item Value Reference Range Interpretation Comments NA (test code = 139 mmol/L 135-145 1176719680) K (test code = 4.9 mmol/L 3.5-5.0 0518581830) CL (test code = 106 mmol/L 98-108 4652408350) CO2 TOTAL (test code = 26 mmol/L 23-31 0287356896) AGAP (test code = 2-16 6188428347) BUN (test code = 65 mg/dL 7-23 H 9197006675) GLUCOSE (test code = 87 mg/dL 70-110 5859363857) CREATININE (test code = 2.38 mg/dL 0.50-1.04 H 9717839140) CALCIUM (test code = 8.5 mg/dL 8.6-10.6 L 3519183496) eGFR (test code = mL/min/1.73m2 5990088192) JONATHAN (test code = JONATHAN) Association of Glomerular Filtration Rate (GFR) and Staging of Kidney Disease* + --+ --+ ------+| GFR (mL/min/1.73 m2) ?| With Kidney Damage ?| ?Without Kidney Damage+ --------+ --------+ +| ?>90 ?| ?Stage one ?| ? Normal ?+ ---+ ---+ -------+| ?60-89 ?| ?Stage two ?| ? Decreased GFR ? + --+ --+ ------+| ?30-59 ?| ?Stage three ?| ? Stage three ? + --+ --+ ------+| ?15-29 ?| ?Stage four ? | ? Stage four ?+ ---+ ---+ -------+| ?<15 (or dialysis) ? ?| ?Stage five ? | ? Stage five ?+ ---+ ---+ -------+ *Each stage assumes the associated GFR level has been in effect for at least three months. ?Stages 1 to 5, with or without kidney disease, indicate chronic kidney disease. Notes: Determination of stages one and two (with eGFR >59mL/min/1.73 m2) requires estimation of kidney damage for at least three months as defined by structural or functional abnormalities of the kidney, manifested by either:Pathological abnormalities or Markers of kidney damage (including abnormalities in the composition of the blood or urine or abnormalities in imaging tests). Lab Interpretation Abnormal (test code = 67287-6) [facility]21-[facility] 16:18:19 Test Item Value Reference Range Interpretation Comments MAGNESIUM (test code = 6305525763) 2.4 mg/dL 1.7-2.4 Lab Interpretation (test code = Normal 26714-7) [facility] GLUCOSE (AUTOMATED)2021-05-27 12:59:11 Test Item Value Reference Range Interpretation Comments POCT GLU (test code = 2654291949) 95 mg/dL 70-110 Lab Interpretation (test code = Normal 82338-1) [facility] [id number] 11:11:54 Test Item Value Reference Range Interpretation Comments APTT Patient (test code See_Comment H [Au tomated message] = 3173-2) The system [employer] generated this result transmitted ref erence range: 26 - 36 Seconds. The reference range was not used to int erpret this result as normal/abnormal . Lab Interpretation (test Abnormal code = 93487-1) [facility] [id number] 02:55:23 Test Item Value Reference Range Interpretation Comments APTT Patient (test code See_Comment H [Au tomated message] = 3173-2) The system [employer] generated this result transmitted ref erence range: 26 - 36 Seconds. The reference range was not used to int erpret this result as normal/abnormal . Lab Interpretation (test Abnormal code = 54064-4) [facility] GLUCOSE (AUTOMATED)2021-05-27 00:50:49 Test Item Value Reference Range Interpretation Comments POCT GLU (test code = 2314569267) 150 mg/dL 70-110 H Lab Interpretation (test code = Abnormal 80560-5) [facility] POS[facility]IVE BLOOD PATHOGENS DNA [id number] 00:04:21 Test Item Value Reference Range Interpretation Comments Coagulase Negative Positive Negative, See A Staphylococcus (test Comment/Narrative code = 19037-4) JONATHAN (test code = JONATHAN) Coagulase negative Staphylococcus (CoNS) detected by DNA probe. ?CoNS often contaminate blood cultures from skin colonization during phlebotomy. ?Preferred management is to repeat blood cultures, and monitor off antibiotics. ?Contamination is suggested by culture growth after 48 hours, or growth in single culture (i.e., one of two sets). ?True bacteremia is suggested by the fever, hypotension, and leukocytosis that are not explained by an alternative infection, or indwelling foreign devices that appear infected (catheters, lines, or prostheses). Consider Infectious Diseases consultation if differentiation of CoNS bacteremia from contamination is uncertain. If clinical context suggests true bacteremia, preferred therapy is vancomycin. Please contact the Antimicrobial Stewardship Program with questions.Pager: ?[phone] Testing included eleven identification and three resistance marker targets. Lab Interpretation Abnormal (test code = 26485-4) [facility]2021-05-26 21:55:30 Test Item Value Reference Range Interpretation Comments POCT GLU (test code = 8866699726) 96 mg/dL 70-110 Lab Interpretation (test code = Normal 92350-6) [facility]21-[facility] 18:41:59 Test Item Value Reference Range Interpretation Comments APTT Patient (test code = See_Comment [ Automated message] 3173-2) The system [employer] generated this result transmitted ref erence range: 26 - 36 Seconds. The re ference range was not u sed to interpret this result as normal/abnor mal. Lab Interpretation (test Normal code = 54323-7) [facility] HEMOGLOBIN (A1C)2021-05-26 18:17:51 Test Item Value Reference Range Interpretation Comments HGB A1C (test code = 7.9 % 4.0-5.7 H 4548-4) JONATHAN (test code = JONATHAN) Reference RangesNormal: <5.7%Prediabetes: 5.7 - 6.4%Diabetes: > 6.5% Lab Interpretation (test Abnormal code = 27767-0) [facility] GLUCOSE (AUTOMATED)2021-05-26 16:44:33 Test Item Value Reference Range Interpretation Comments POCT GLU (test code = 87 mg/dL 70-110 Notifi ed Provider [id number]) Lab Interpretation (test Normal code = 60209-0) [facility] GLUCOSE (AUTOMATED)2021-05-26 13:17:53 Test Item Value Reference Range Interpretation Comments POCT GLU (test code = 5924558851) 84 mg/dL 70-110 Lab Interpretation (test code = Normal 55764-1) [facility] METABOLIC PANEL (NA, K, CL, CO2, GLUCOSE, BUN, CREATININE, CA)2021-05-26 11:25:44 Test Item Value Reference Range Interpretation Comments NA (test code = 141 mmol/L 135-145 3775362899) K (test code = 5.2 mmol/L 3.5-5.0 H 4911090006) CL (test code = 109 mmol/L 98-108 H 0411294172) CO2 TOTAL (test code = 31 mmol/L 23-31 5520142821) AGAP (test code = 2-16 L 4613956036) BUN (test code = 68 mg/dL 7-23 H 3967366901) GLUCOSE (test code = 69 mg/dL 70-110 L 5001995713) CREATININE (test code = 2.20 mg/dL 0.50-1.04 H 6242803482) CALCIUM (test code = 8.8 mg/dL 8.6-10.6 4275091759) eGFR (test code = mL/min/1.73m2 2355085089) JONATHAN (test code = JONATHAN) Association of Glomerular Filtration Rate (GFR) and Staging of Kidney Disease* + --+ --+ ------+| GFR (mL/min/1.73 m2) ?| With Kidney Damage ?| ?Without Kidney Damage+ --------+ --------+ +| ?>90 ?| ?Stage one ?| ? Normal ?+ ---+ ---+ -------+| ?60-89 ?| ?Stage two ?| ? Decreased GFR ? + --+ --+ ------+| ?30-59 ?| ?Stage three ?| ? Stage three ? + --+ --+ ------+| ?15-29 ?| ?Stage four ? | ? Stage four ?+ ---+ ---+ -------+| ?<15 (or dialysis) ? ?| ?Stage five ? | ? Stage five ?+ ---+ ---+ -------+ *Each stage assumes the associated GFR level has been in effect for at least three months. ?Stages 1 to 5, with or without kidney disease, indicate chronic kidney disease. Notes: Determination of stages one and two (with eGFR >59mL/min/1.73 m2) requires estimation of kidney damage for at least three months as defined by structural or functional abnormalities of the kidney, manifested by either:Pathological abnormalities or Markers of kidney damage (including abnormalities in the composition of the blood or urine or abnormalities in imaging tests). Lab Interpretation Abnormal (test code = 57927-6) [facility] WITH [id number] 11:15:42 Test Item Value Reference Range Interpretation Comments WBC (test code = See_Comment [Automated 6690-2) message] The sy stem which generated this result transmitted reference range : 4.30 - 11.10 10*3/?L. The reference range was not used to interpret this result as normal/abnormal . RBC (test code = See_Comment L [Automated 789-8) message] The sy stem which generated this result transmitted reference range : 3.93 - 5.25 10*6/?L. The reference range was not used to interpret this result as normal/abnormal . HGB (test code = 8.5 g/dL 11.6-15.0 L 718-7) HCT (test code = 27.8 % 35.7-45.2 L 4544-3) MCV (test code = 101.1 fL 80.6-95.5 H 787-2) MCH (test code = 30.9 pg 25.9-32.8 785-6) MCHC (test code = 30.6 g/dL 31.6-35.1 L 786-4) RDW-SD (test code = 56.2 fL 39.0-49.9 H 67623-4) RDW-CV (test code = 15.1 % 12.0-15.5 788-0) PLT (test code = See_Comment [Automated 777-3) message] The sy stem which generated this result transmitted reference range : 166 - 358 10*3/ ?L. The reference r comfort was not used to interpret this result as normal/abnormal . MPV (test code = 10.5 fL 9.5-12.9 85481-1) NRBC/100 WBC (test See_Comment [Automat ed code = 0593736999) message] The system which generated this result transmitted reference range : 0.0 - 10.0 /100 WBCs. The refer ence range was not u sed to interpret th is result as normal/abnormal . NRBC x10^3 (test code <0.01 See_Comment [Auto mated = 9785814817) message] The s ystem which generated this result transmitted reference range : 10*3/?L. The reference range was not used to interpret this result as normal/abnormal . GRAN MAT (NEUT) % 76.1 % (test code = 770-8) IMM GRAN % (test code 0.40 % = 9862843525) LYMPH % (test code = 8.1 % 736-9) MONO % (test code = 11.4 % 5905-5) EOS % (test code = 3.4 % 713-8) BASO % (test code = 0.6 % 706-2) GRAN MAT x10^3(ANC) 7.65 10*3/uL 1.88-7.09 H (test code = 3050581146) IMM GRAN x10^3 (test 0.04 10*3/uL 0.00-0.06 code = 3680681025) LYMPH x10^3 (test code 0.81 10*3/uL 1.32-3.29 L = 731-0) MONO x10^3 (test code 1.14 10*3/uL 0.33-0.92 H = 742-7) EOS x10^3 (test code = 0.34 10*3/uL 0.03-0.39 711-2) BASO x10^3 (test code 0.06 10*3/uL 0.01-0.07 = 704-7) Lab Interpretation Abnormal (test code = 58610-1) [facility] GLUCOSE (AUTOMATED)2021-05-26 02:01:52 Test Item Value Reference Range Interpretation Comments POCT GLU (test code = 8109571053) 116 mg/dL 70-110 H Lab Interpretation (test code = Abnormal 06573-1) [facility] GLUCOSE (AUTOMATED)2021-05-25 21:44:21 Test Item Value Reference Range Interpretation Comments POCT GLU (test code = 138 mg/dL 70-110 H Notifi ed Provider [id number]) Lab Interpretation (test Abnormal code = 11471-8) [facility] [id number] 11:26:41 Test Item Value Reference Interpretation Comments Range TROPONIN I (test 0.009 ng/mL See_Comment [Automated code = [id number]) message] The system which generated this result transmitted reference range : <=0.034. The reference range was not used to interpret this result as normal/abnormal . JONATHAN (test code = Reference (Normal) JONATHAN) Range (defined by the 99th percentile reference limit): <= 0.034 ng/mL Note: Cardiac troponin begins to rise 3-4 hours after the onset of ischemia. Repeat in 4-6 hours if the sample was drawn within 3-4 hours of the onset of the symptom and found normal. Diagnosis of myocardial injury is made with acute changes in cTn concentrations with at least one serial sample above the 99th percentile upper reference limit (URL), taken together with the patient's clinical presentation. Biotin has been reported to cause a negative bias, interpret results relative to patient's use of biotin. Lab Interpretation Normal (test code = 56895-7) [facility] [id number] 11:23:38 Test Item Value Reference Range Interpretation Comments NT-proBNP (test code 4990 pg/mL See_Comment H [Autom ated = [id number]) message] The system which generated this result transmitted reference range : <=125. The reference range was not used to interpret this result as normal/abnormal . JONATHAN (test code = JONATHAN) Biotin has been reported to cause a negative bias, interpret results relative to patient's use of biotin. Lab Interpretation Abnormal (test code = 23574-8) [facility] (78635)2021-05-25 11:14:39 Test Item Value Reference Range Interpretation Comments NA (test code = 143 mmol/L 135-145 0598057333) K (test code = 4.9 mmol/L 3.5-5.0 9289848419) CL (test code = 108 mmol/L 98-108 6661890289) CO2 TOTAL (test code = 28 mmol/L 23-31 1568687837) AGAP (test code = 2-16 0885752784) BUN (test code = 58 mg/dL 7-23 H 1828963749) GLUCOSE (test code = 307 mg/dL 70-110 H 9454874398) CREATININE (test code = 1.72 mg/dL 0.50-1.04 H 6467362937) TOTAL BILI (test code = 0.5 mg/dL 0.1-1.0 9893667363) CALCIUM (test code = 9.3 mg/dL 8.6-10.6 6676802554) T PROTEIN (test code = 7.3 g/dL 6.3-8.2 3798261415) ALBUMIN (test code = 3.7 g/dL 3.5-5.0 9790267442) ALK PHOS (test code = 145 U/L 34-122 H 1063747196) ALTv (test code = 19 U/L 5-35 1742-6) AST(SGOT) (test code = 21 U/L 13-40 3048587188) eGFR (test code = mL/min/1.73m2 4219710125) JONATHAN (test code = JONATHAN) Association of Glomerular Filtration Rate (GFR) and Staging of Kidney Disease* + --+ --+ ------+| GFR (mL/min/1.73 m2) ?| With Kidney Damage ?| ?Without Kidney Damage+ --------+ --------+ +| ?>90 ?| ?Stage one ?| ? Normal ?+ ---+ ---+ -------+| ?60-89 ?| ?Stage two ?| ? Decreased GFR ? + --+ --+ ------+| ?30-59 ?| ?Stage three ?| ? Stage three ? + --+ --+ ------+| ?15-29 ?| ?Stage four ? | ? Stage four ?+ ---+ ---+ -------+| ?<15 (or dialysis) ? ?| ?Stage five ? | ? Stage five ?+ ---+ ---+ -------+ *Each stage assumes the associated GFR level has been in effect for at least three months. ?Stages 1 to 5, with or without kidney disease, indicate chronic kidney disease. Notes: Determination of stages one and two (with eGFR >59mL/min/1.73 m2) requires estimation of kidney damage for at least three months as defined by structural or functional abnormalities of the kidney, manifested by either:Pathological abnormalities or Markers of kidney damage (including abnormalities in the composition of the blood or urine or abnormalities in imaging tests). Lab Interpretation Abnormal (test code = 28984-0) [facility] WITH [id number] 11:06:20 Test Item Value Reference Range Interpretation Comments WBC (test code = See_Comment H [Automated 6690-2) message] The system which generated this result transmit cathy reference range : 4.30 - 11.10 10*3/?L. The reference range was not used to interpret this result as normal/abnormal . RBC (test code = See_Comment L [Automated 789-8) message] The system which generated this result transmit cathy reference range : 3.93 - 5.25 10*6/?L. The reference range was not used to interpret this result as normal/abnormal . HGB (test code = 11.0 g/dL 11.6-15.0 L 718-7) HCT (test code = 36.0 % 35.7-45.2 4544-3) MCV (test code = 100.3 fL 80.6-95.5 H 787-2) MCH (test code = 30.6 pg 25.9-32.8 785-6) MCHC (test code = 30.6 g/dL 31.6-35.1 L 786-4) RDW-SD (test code = 55.3 fL 39.0-49.9 H 42619-2) RDW-CV (test code = 15.0 % 12.0-15.5 788-0) PLT (test code = See_Comment H [Automated 777-3) message] The system which generated this result transmit cathy reference range : 166 - 358 10*3/ ?L. The reference range was not u sed to interpret th is result as normal/abnormal . MPV (test code = 11.0 fL 9.5-12.9 46206-3) NRBC/100 WBC (test See_Comment [Automat ed code = 0756073503) message] The system which generated this result transmit cathy reference range : 0.0 - 10.0 /100 WBCs. The reference range was not used to interpret this result as normal/abnormal . NRBC x10^3 (test code <0.01 See_Comment [Auto mated = 5448628014) message] The system which generated this result transmit cathy reference range : 10*3/?L. The reference range was not used to interpret this result as normal/abnormal . GRAN MAT (NEUT) % 80.3 % (test code = 770-8) IMM GRAN % (test code 1.00 % = 1285473161) LYMPH % (test code = 5.8 % 736-9) MONO % (test code = 8.9 % 5905-5) EOS % (test code = 3.1 % 713-8) BASO % (test code = 0.9 % 706-2) GRAN MAT x10^3(ANC) 12.37 10*3/uL 1.88-7.09 H (test code = 0864237792) IMM GRAN x10^3 (test 0.15 10*3/uL 0.00-0.06 H code = 2835720515) LYMPH x10^3 (test code 0.90 10*3/uL 1.32-3.29 L = 731-0) MONO x10^3 (test code 1.38 10*3/uL 0.33-0.92 H = 742-7) EOS x10^3 (test code = 0.48 10*3/uL 0.03-0.39 H 711-2) BASO x10^3 (test code 0.14 10*3/uL 0.01-0.07 H = 704-7) Lab Interpretation Abnormal (test code = 34718-4) [facility] 17:11:00 Test Item Value Reference Range Interpretation Comments GLUBED (test code = GLUBED) 175 MG/DL 70-105 H COVID 19 Asymptomatic IH [id number] 13:04:00 Test Item Value Reference Range Interpretation Comments COVID 19 NEGATIVE NEGATIVE Negative result s, from Asymptomatic IH AG patients with symptom (test code = onset beyondfiv e days, COVNONPUIAG) should be treat ed as presumptive and confirmationwit h a molecular assay , if necessary for patientmanageme nt, may be performed. Nega tive results do not ruleout COVID-19 and sh ould not be used as the sole basis fortreatment or patient management deci sions, includinginfect ion control decisio ns. Negative result s should beconsidered in the context of a pa tient's recent exposure s,history and the presenc e of clinical signs and symptomsconsist ent with COVID-19. [id number] 11:40:00 Test Item Value Reference Range Interpretation Comments GLUBED (test code = GLUBED) 170 MG/DL 70-105 H [id number] 08:13:00 Test Item Value Reference Range Interpretation Comments GLUBED (test code = GLUBED) 90 MG/DL 70-105 N COMPREHENSIVE METABOLIC [id number] 04:42:00 Test Item Value Reference Range Interpretation Comments SODIUM (test code = 145 mmol/L 136-145 N Please n ote: New NA) Reference Range Oct 2020 POTASSIUM (test code 5.0 mmol/L 3.5-5.1 N = K) CHLORIDE (test code = 108 mmol/L 98-107 H Please note: New CL) Reference Range Oct 2020 CARBON DIOXIDE (test 34 mmol/L 20-31 H Please note: New code = CO2) Reference Range Oct 2020 GLUCOSE (test code = 94 mg/dL 74-106 N Please note: New GLU) Reference Range Oct 2020 BLOOD UREA NITROGEN 88 mg/dL 9-23 H Please n ote: New (test code = BUN) Reference Range Oct 2020 GLOMERULAR FILTRATION 22 mL/min >60 L Units are RATE (test code = mL/min/1.7 3m2 The GFR) estimated glome rular filtration rate is computed usingp atient race, age (>18) , sex, and serum creat inine. If anyof the ne eded data elements a re missing the Lab oratory cannot compute an estimation of t he glomerular filt ration rate. CREATININE (test code 2.30 mg/dL 0.55-1.02 H Please note: New = CREAT) Reference Range Oct 2020 TOTAL PROTEIN (test 5.0 g/dL 5.7-8.2 L Please n ote: New code = PROT) Reference Range Oct 2020 ALBUMIN (test code = 3.2 g/dL 3.2-4.8 N Please note: New ALB) Reference Range Oct 2020 CALCIUM (test code = 8.6 mg/dL 8.7-10.4 L Please note: New CA) Reference Range Oct 2020 BILIRUBIN TOTAL (test 0.2 mg/dL 0.3-1.2 L Please note: New code = BILT) Reference Range Oct 2020 SGOT/AST (test code = 11 U/L <34 N Please note: New AST) Reference Range Oct 2020 SGPT/ALT (test code = 14 U/L 10-49 N Please note: New ALT) Reference Range Oct 2020 ALKALINE PHOSPHATASE 105 U/L 46-116 N Please note: New (test code = ALKP) Reference Range Oct 2020 CBC W/AUTO [id number] 04:29:00 Test Item Value Reference Range Interpretation Comments WHITE BLOOD CELL (test code = 9.2 x10 3/uL 4.8-10.8 N WBC) RED BLOOD CELL (test code = 2.72 x10 6/uL 4.20-5.40 L RBC) HEMOGLOBIN (test code = HGB) 8.6 g/dL 12.0-16.0 L HEMATOCRIT (test code = HCT) 27.6 % 37.0-47.0 L MEAN CELL VOLUME (test code = 101.5 fL 81.0-99.0 H MCV) MEAN CELL HGB (test code = MCH) 31.6 pg 27-31 H MEAN CELL HGB CONCENTRATION 31.2 G/DL 33-36.5 L (test code = MCHC) RED CELL DISTRIBUTION WIDTH 14.6 % 12.9-16.9 N (test code = RDW) PLATELET COUNT (test code = 280 x10 3/uL 150-440 N PLT) MEAN PLATELET VOLUME (test code 10.6 fL 8.9-12.4 N = MPV) NEUTROPHIL % (test code = NT%) 72.6 % 42.2-75.2 N LYMPHOCYTE % (test code = LY%) 9.0 % 20.5-51.1 L MONOCYTE % (test code = MO%) 12.7 % 1.7-9.3 H EOSINOPHIL % (test code = EO%) 4.9 % 0.0-7.0 N BASOPHIL % (test code = BA%) 0.4 % 0-2.5 N NEUTROPHIL # (test code = NT#) 6.65 x10 3/uL 1.80-7.70 N LYMPHOCYTE # (test code = LY#) 0.83 x10 3/uL 1.00-4.80 L MONOCYTE # (test code = MO#) 1.17 x10 3/uL 0.00-0.80 H EOSINOPHIL # (test code = EO#) 0.45 x10 3/uL 0.00-0.45 N BASOPHIL # (test code = BA#) 0.04 x10 3/uL 0.0-0.20 N [id number] 20:58:00 Test Item Value Reference Range Interpretation Comments GLUBED (test code = GLUBED) 229 MG/DL 70-105 H [id number] 17:01:00 Test Item Value Reference Range Interpretation Comments GLUBED (test code = GLUBED) 180 MG/DL 70-105 H [id number] 11:46:00 Test Item Value Reference Range Interpretation Comments GLUBED (test code = GLUBED) 111 MG/DL 70-105 H CBC W/MANUAL [id number] 10:20:00 Test Item Value Reference Range Interpretation Comments WHITE BLOOD CELL (test code = 13.3 x10 3/uL 4.8-10.8 H WBC) RED BLOOD CELL (test code = 3.02 x10 6/uL 4.20-5.40 L RBC) HEMOGLOBIN (test code = HGB) 9.3 g/dL 12.0-16.0 L HEMATOCRIT (test code = HCT) 30.1 % 37.0-47.0 L MEAN CELL VOLUME (test code = 99.7 fL 81.0-99.0 H MCV) MEAN CELL HGB (test code = 30.8 pg 27-31 N MCH) MEAN CELL HGB CONCENTRATION 30.9 G/DL 33-36.5 L (test code = MCHC) RED CELL DISTRIBUTION WIDTH 14.8 % 12.9-16.9 N (test code = RDW) PLATELET COUNT (test code = 334 x10 3/uL 150-440 N PLT) MEAN PLATELET VOLUME (test 10.8 fL 8.9-12.4 N code = MPV) NEUTROPHIL % (test code = NT%) 76.9 % 42.2-75.2 H LYMPHOCYTE % (test code = LY%) 6.7 % 20.5-51.1 L MONOCYTE % (test code = MO%) 12.0 % 1.7-9.3 H EOSINOPHIL % (test code = EO%) 3.3 % 0.0-7.0 N BASOPHIL % (test code = BA%) 0.5 % 0-2.5 N NEUTROPHIL # (test code = NT#) 10.22 x10 3/uL 1.80-7.70 H LYMPHOCYTE # (test code = LY#) 0.89 x10 3/uL 1.00-4.80 L MONOCYTE # (test code = MO#) 1.59 x10 3/uL 0.00-0.80 H EOSINOPHIL # (test code = EO#) 0.44 x10 3/uL 0.00-0.45 N BASOPHIL # (test code = BA#) 0.06 x10 3/uL 0.0-0.20 N TOTAL CELLS COUNTED (test code 100 #CELLS = TCC) SEGMENTED NEUTROPHILS (test 78 % 49-71 H code = SEG) LYMPHOCYTE (test code = LYMPH) 5 % 20-40 L MONOCYTE (test code = MON) 15 % 3-8 H EOSINOPHIL (test code = EOS) 1 % 1-5 N BASOPHIL (test code = BASO) 1 % 0.2-1.0 N HYPOCHROMIA (test code = HYPO) 1+ NONE SEEN A COMPREHENSIVE METABOLIC [id number] 09:18:00 Test Item Value Reference Range Interpretation Comments SODIUM (test code = 143 mmol/L 136-145 N Please n ote: New NA) Reference Range Oct 2020 POTASSIUM (test code 4.8 mmol/L 3.5-5.1 N = K) CHLORIDE (test code = 107 mmol/L 98-107 N Please note: New CL) Reference Range Oct 2020 CARBON DIOXIDE (test 35 mmol/L 20-31 H Please note: New code = CO2) Reference Range Oct 2020 GLUCOSE (test code = 96 mg/dL 74-106 N Please note: New GLU) Reference Range Oct 2020 BLOOD UREA NITROGEN 80 mg/dL 9-23 H Please n ote: New (test code = BUN) Reference Range Oct 2020 GLOMERULAR FILTRATION 24 mL/min >60 L Units are RATE (test code = mL/min/1.7 3m2 The GFR) estimated glome rular filtration rate is computed usingp atient race, age (>18) , sex, and serum creat inine. If anyof the ne eded data elements a re missing the Lab oratory cannot compute an estimation of t he glomerular filt ration rate. CREATININE (test code 2.20 mg/dL 0.55-1.02 H Please note: New = CREAT) Reference Range Oct 2020 TOTAL PROTEIN (test 5.8 g/dL 5.7-8.2 N Please n ote: New code = PROT) Reference Range Oct 2020 ALBUMIN (test code = 3.5 g/dL 3.2-4.8 N Please note: New ALB) Reference Range Oct 2020 CALCIUM (test code = 9.3 mg/dL 8.7-10.4 N Please note: New CA) Reference Range Oct 2020 BILIRUBIN TOTAL (test 0.4 mg/dL 0.3-1.2 N Please note: New code = BILT) Reference Range Oct 2020 SGOT/AST (test code = 15 U/L <34 N Please note: New AST) Reference Range Oct 2020 SGPT/ALT (test code = 13 U/L 10-49 N Please note: New ALT) Reference Range Oct 2020 ALKALINE PHOSPHATASE 103 U/L 46-116 N Please note: New (test code = ALKP) Reference Range Oct 2020 CBC W/MANUAL [id number] 09:13:00 Test Item Value Reference Range Interpretation Comments WHITE BLOOD CELL (test code = 13.3 x10 3/uL 4.8-10.8 H WBC) RED BLOOD CELL (test code = 3.02 x10 6/uL 4.20-5.40 L RBC) HEMOGLOBIN (test code = HGB) 9.3 g/dL 12.0-16.0 L HEMATOCRIT (test code = HCT) 30.1 % 37.0-47.0 L MEAN CELL VOLUME (test code = 99.7 fL 81.0-99.0 H MCV) MEAN CELL HGB (test code = 30.8 pg 27-31 N MCH) MEAN CELL HGB CONCENTRATION 30.9 G/DL 33-36.5 L (test code = MCHC) RED CELL DISTRIBUTION WIDTH 14.8 % 12.9-16.9 N (test code = RDW) PLATELET COUNT (test code = 334 x10 3/uL 150-440 N PLT) MEAN PLATELET VOLUME (test 10.8 fL 8.9-12.4 N code = MPV) NEUTROPHIL % (test code = NT%) 76.9 % 42.2-75.2 H LYMPHOCYTE % (test code = LY%) 6.7 % 20.5-51.1 L MONOCYTE % (test code = MO%) 12.0 % 1.7-9.3 H EOSINOPHIL % (test code = EO%) 3.3 % 0.0-7.0 N BASOPHIL % (test code = BA%) 0.5 % 0-2.5 N NEUTROPHIL # (test code = NT#) 10.22 x10 3/uL 1.80-7.70 H LYMPHOCYTE # (test code = LY#) 0.89 x10 3/uL 1.00-4.80 L MONOCYTE # (test code = MO#) 1.59 x10 3/uL 0.00-0.80 H EOSINOPHIL # (test code = EO#) 0.44 x10 3/uL 0.00-0.45 N BASOPHIL # (test code = BA#) 0.06 x10 3/uL 0.0-0.20 N TOTAL CELLS COUNTED (test code #CELLS = TCC) SEGMENTED NEUTROPHILS (test % 49-71 code = SEG) LYMPHOCYTE (test code = LYMPH) % 20-40 COMPREHENSIVE METABOLIC [id number] 09:12:00 Test Item Value Reference Range Interpretation Comments SODIUM (test code = NA) 143 mmol/L 136-145 N Plea se note: New Reference Range Oct 2020 POTASSIUM (test code = 4.8 mmol/L 3.5-5.1 N K) CHLORIDE (test code = 107 mmol/L 98-107 N Please note: New CL) Reference Range Oct 2020 CARBON DIOXIDE (test 35 mmol/L 20-31 H Please note: New code = CO2) Reference Range Oct 2020 GLUCOSE (test code = mg/dL 74-106 GLU) BLOOD UREA NITROGEN mg/dL 9-23 (test code = BUN) GLOMERULAR FILTRATION mL/min >60 RATE (test code = GFR) CREATININE (test code = mg/dL 0.55-1.02 CREAT) TOTAL PROTEIN (test g/dL 5.7-8.2 code = PROT) ALBUMIN (test code = g/dL 3.2-4.8 ALB) CALCIUM (test code = mg/dL 8.7-10.4 CA) BILIRUBIN TOTAL (test mg/dL 0.3-1.2 code = BILT) SGOT/AST (test code = U/L <34 AST) SGPT/ALT (test code = U/L 10-49 ALT) ALKALINE PHOSPHATASE U/L 46-116 (test code = ALKP) [id number] 08:13:00 Test Item Value Reference Range Interpretation Comments GLUBED (test code = GLUBED) 102 MG/DL 70-105 N [id number] 20:53:00 Test Item Value Reference Range Interpretation Comments GLUBED (test code = GLUBED) 359 MG/DL 70-105 HH [id number] 17:47:00 Test Item Value Reference Range Interpretation Comments GLUBED (test code = GLUBED) 276 MG/DL 70-105 H [id number] 12:17:00 Test Item Value Reference Range Interpretation Comments GLUBED (test code = GLUBED) 150 MG/DL 70-105 H [id number] 07:37:00 Test Item Value Reference Range Interpretation Comments GLUBED (test code = GLUBED) 85 MG/DL 70-105 N BASIC METABOLIC [id number] 04:08:00 Test Item Value Reference Range Interpretation Comments SODIUM (test code = 145 mmol/L 136-145 N Please n ote: New NA) Reference Range Oct 2020 POTASSIUM (test code 4.6 mmol/L 3.5-5.1 N = K) CHLORIDE (test code = 107 mmol/L 98-107 N Please note: New CL) Reference Range Oct 2020 CARBON DIOXIDE (test 36 mmol/L 20-31 H Please note: New code = CO2) Reference Range Oct 2020 GLUCOSE (test code = 79 mg/dL 74-106 N Please note: New GLU) Reference Range Oct 2020 BLOOD UREA NITROGEN 88 mg/dL 9-23 H Please n ote: New (test code = BUN) Reference Range Oct 2020 GLOMERULAR FILTRATION 28 mL/min >60 L Units are RATE (test code = mL/min/1.7 3m2 The GFR) estimated glome rular filtration rate is computed usingp atient race, age (>18) , sex, and serum creat inine. If anyof the ne eded data elements a re missing the Lab oratory cannot compute an estimation of t he glomerular filt ration rate. CREATININE (test code 1.90 mg/dL 0.55-1.02 H Please note: New = CREAT) Reference Range Oct 2020 CALCIUM (test code = 9.5 mg/dL 8.7-10.4 N Please note: New CA) Reference Range Oct 2020 [id number] 04:08:00 Test Item Value Reference Range Interpretation Comments PHOSPHOROUS (test code 3.6 mg/dL 2.4-5.1 N Pleas e note: New = PHOS) Reference Range Oct 2020 [id number] 04:08:00 Test Item Value Reference Range Interpretation Comments MAGNESIUM (test code = 3.0 mg/dL 1.6-2.6 H Pleas e note: New MAG) Reference Range Oct 2020 [id number] 04:08:00 Test Item Value Reference Range Interpretation Comments TROPONIN-I (test 18.7 pg/mL 27.36-66.23 L Please note : Units and code = TROPI) Reference Rang e have changedFeb 3, 2 021 CBC W/AUTO [id number] 03:09:00 Test Item Value Reference Range Interpretation Comments WHITE BLOOD CELL (test code = 12.8 x10 3/uL 4.8-10.8 H WBC) RED BLOOD CELL (test code = 3.08 x10 6/uL 4.20-5.40 L RBC) HEMOGLOBIN (test code = HGB) 9.5 g/dL 12.0-16.0 L HEMATOCRIT (test code = HCT) 30.7 % 37.0-47.0 L MEAN CELL VOLUME (test code = 99.7 fL 81.0-99.0 H MCV) MEAN CELL HGB (test code = 30.8 pg 27-31 N MCH) MEAN CELL HGB CONCENTRATION 30.9 G/DL 33-36.5 L (test code = MCHC) RED CELL DISTRIBUTION WIDTH 14.6 % 12.9-16.9 N (test code = RDW) PLATELET COUNT (test code = 300 x10 3/uL 150-440 N PLT) MEAN PLATELET VOLUME (test 10.3 fL 8.9-12.4 N code = MPV) NEUTROPHIL % (test code = NT%) 78.8 % 42.2-75.2 H LYMPHOCYTE % (test code = LY%) 5.8 % 20.5-51.1 L MONOCYTE % (test code = MO%) 11.7 % 1.7-9.3 H EOSINOPHIL % (test code = EO%) 2.8 % 0.0-7.0 N BASOPHIL % (test code = BA%) 0.5 % 0-2.5 N NEUTROPHIL # (test code = NT#) 10.12 x10 3/uL 1.80-7.70 H LYMPHOCYTE # (test code = LY#) 0.75 x10 3/uL 1.00-4.80 L MONOCYTE # (test code = MO#) 1.50 x10 3/uL 0.00-0.80 H EOSINOPHIL # (test code = EO#) 0.36 x10 3/uL 0.00-0.45 N BASOPHIL # (test code = BA#) 0.06 x10 3/uL 0.0-0.20 N [id number] 21:21:00 Test Item Value Reference Range Interpretation Comments GLUBED (test code = GLUBED) 201 MG/DL 70-105 H [id number] 17:18:00 Test Item Value Reference Range Interpretation Comments GLUBED (test code = GLUBED) 170 MG/DL 70-105 H [id number] 11:32:00 Test Item Value Reference Range Interpretation Comments GLUBED (test code = GLUBED) 175 MG/DL 70-105 H [id number] 07:34:00 Test Item Value Reference Range Interpretation Comments GLUBED (test code = GLUBED) 123 MG/DL 70-105 H BASIC METABOLIC [id number] 02:20:00 Test Item Value Reference Range Interpretation Comments SODIUM (test code = 143 mmol/L 136-145 N Please n ote: New NA) Reference Range Oct 2020 POTASSIUM (test code 5.0 mmol/L 3.5-5.1 N = K) CHLORIDE (test code = 105 mmol/L 98-107 N Please note: New CL) Reference Range Oct 2020 CARBON DIOXIDE (test 34 mmol/L 20-31 H Please note: New code = CO2) Reference Range Oct 2020 GLUCOSE (test code = 180 mg/dL 74-106 H Please note: New GLU) Reference Range Oct 2020 BLOOD UREA NITROGEN 93 mg/dL 9-23 H Please n ote: New (test code = BUN) Reference Range Oct 2020 GLOMERULAR FILTRATION 26 mL/min >60 L Units are RATE (test code = mL/min/1.7 3m2 The GFR) estimated glome rular filtration rate is computed usingp atient race, age (>18) , sex, and serum creat inine. If anyof the ne eded data elements a re missing the Lab oratory cannot compute an estimation of t he glomerular filt ration rate. CREATININE (test code 2.00 mg/dL 0.55-1.02 H Please note: New = CREAT) Reference Range Oct 2020 CALCIUM (test code = 9.1 mg/dL 8.7-10.4 N Please note: New CA) Reference Range Oct 2020 [id number] 02:20:00 Test Item Value Reference Range Interpretation Comments MAGNESIUM (test code = 3.0 mg/dL 1.6-2.6 H Pleas e note: New MAG) Reference Range Oct 2020 CBC W/AUTO [id number] 02:09:00 Test Item Value Reference Range Interpretation Comments WHITE BLOOD CELL (test code = 8.2 x10 3/uL 4.8-10.8 N WBC) RED BLOOD CELL (test code = 3.04 x10 6/uL 4.20-5.40 L RBC) HEMOGLOBIN (test code = HGB) 9.3 g/dL 12.0-16.0 L HEMATOCRIT (test code = HCT) 30.5 % 37.0-47.0 L MEAN CELL VOLUME (test code = 100.3 fL 81.0-99.0 H MCV) MEAN CELL HGB (test code = MCH) 30.6 pg 27-31 N MEAN CELL HGB CONCENTRATION 30.5 G/DL 33-36.5 L (test code = MCHC) RED CELL DISTRIBUTION WIDTH 14.6 % 12.9-16.9 N (test code = RDW) PLATELET COUNT (test code = 297 x10 3/uL 150-440 N PLT) MEAN PLATELET VOLUME (test code 10.2 fL 8.9-12.4 N = MPV) NEUTROPHIL % (test code = NT%) 76.2 % 42.2-75.2 H LYMPHOCYTE % (test code = LY%) 8.2 % 20.5-51.1 L MONOCYTE % (test code = MO%) 11.8 % 1.7-9.3 H EOSINOPHIL % (test code = EO%) 2.8 % 0.0-7.0 N BASOPHIL % (test code = BA%) 0.6 % 0-2.5 N NEUTROPHIL # (test code = NT#) 6.25 x10 3/uL 1.80-7.70 N LYMPHOCYTE # (test code = LY#) 0.67 x10 3/uL 1.00-4.80 L MONOCYTE # (test code = MO#) 0.97 x10 3/uL 0.00-0.80 H EOSINOPHIL # (test code = EO#) 0.23 x10 3/uL 0.00-0.45 N BASOPHIL # (test code = BA#) 0.05 x10 3/uL 0.0-0.20 N [id number] 23:51:00 Test Item Value Reference Range Interpretation Comments GLUBED (test code = GLUBED) 206 MG/DL 70-105 H BASIC METABOLIC [id number] 20:41:00 Test Item Value Reference Range Interpretation Comments SODIUM (test code = 141 mmol/L 136-145 N Please n ote: New NA) Reference Range Oct 2020 POTASSIUM (test code 5.7 mmol/L 3.5-5.1 H = K) CHLORIDE (test code = 105 mmol/L 98-107 N Please note: New CL) Reference Range Oct 2020 CARBON DIOXIDE (test 34 mmol/L 20-31 H Please note: New code = CO2) Reference Range Oct 2020 GLUCOSE (test code = 221 mg/dL 74-106 H Please note: New GLU) Reference Range Oct 2020 BLOOD UREA NITROGEN 96 mg/dL 9-23 H Please n ote: New (test code = BUN) Reference Range Oct 2020 GLOMERULAR FILTRATION 24 mL/min >60 L Units are RATE (test code = mL/min/1.7 3m2 The GFR) estimated glome rular filtration rate is computed usingp atient race, age (>18) , sex, and serum creat inine. If anyof the ne eded data elements a re missing the Lab oratory cannot compute an estimation of t he glomerular filt ration rate. CREATININE (test code 2.20 mg/dL 0.55-1.02 H Please note: New = CREAT) Reference Range Oct 2020 CALCIUM (test code = 9.3 mg/dL 8.7-10.4 N Please note: New CA) Reference Range Oct 2020 BASIC METABOLIC [id number] 20:37:00 Test Item Value Reference Range Interpretation Comments SODIUM (test code = 141 mmol/L 136-145 N Please n ote: New NA) Reference Range Oct 2020 POTASSIUM (test code mmol/L 3.5-5.1 = K) CHLORIDE (test code = 105 mmol/L 98-107 N Please note: New CL) Reference Range Oct 2020 CARBON DIOXIDE (test 34 mmol/L 20-31 H Please note: New code = CO2) Reference Range Oct 2020 GLUCOSE (test code = 221 mg/dL 74-106 H Please note: New GLU) Reference Range Oct 2020 BLOOD UREA NITROGEN 96 mg/dL 9-23 H Please n ote: New (test code = BUN) Reference Range Oct 2020 GLOMERULAR FILTRATION 24 mL/min >60 L Units are RATE (test code = mL/min/1.7 3m2 The GFR) estimated glome rular filtration rate is computed usingp atient race, age (>18) , sex, and serum creat inine. If anyof the ne eded data elements a re missing the Lab oratory cannot compute an estimation of t he glomerular filt ration rate. CREATININE (test code 2.20 mg/dL 0.55-1.02 H Please note: New = CREAT) Reference Range Oct 2020 CALCIUM (test code = 9.3 mg/dL 8.7-10.4 N Please note: New CA) Reference Range Oct 2020 BASIC METABOLIC [id number] 20:31:00 Test Item Value Reference Range Interpretation Comments SODIUM (test code = 141 mmol/L 136-145 N Please n ote: New NA) Reference Range Oct 2020 POTASSIUM (test code mmol/L 3.5-5.1 = K) CHLORIDE (test code = 105 mmol/L 98-107 N Please note: New CL) Reference Range Oct 2020 CARBON DIOXIDE (test 34 mmol/L 20-31 H Please note: New code = CO2) Reference Range Oct 2020 GLUCOSE (test code = 221 mg/dL 74-106 H Please note: New GLU) Reference Range Oct 2020 BLOOD UREA NITROGEN 96 mg/dL 9-23 H Please n ote: New (test code = BUN) Reference Range Oct 2020 GLOMERULAR FILTRATION 24 mL/min >60 L Units are RATE (test code = mL/min/1.7 3m2 The GFR) estimated glome rular filtration rate is computed usingp atient race, age (>18) , sex, and serum creat inine. If anyof the ne eded data elements a re missing the Lab oratory cannot compute an estimation of t he glomerular filt ration rate. CREATININE (test code 2.20 mg/dL 0.55-1.02 H Please note: New = CREAT) Reference Range Oct 2020 CALCIUM (test code = mg/dL 8.7-10.4 CA) BASIC METABOLIC [id number] 20:26:00 Test Item Value Reference Range Interpretation Comments SODIUM (test code = 141 mmol/L 136-145 N Please n ote: New NA) Reference Range Oct 2020 POTASSIUM (test code = mmol/L 3.5-5.1 K) CHLORIDE (test code = 105 mmol/L 98-107 N Please note: New CL) Reference Range Oct 2020 CARBON DIOXIDE (test 34 mmol/L 20-31 H Please note: New code = CO2) Reference Range Oct 2020 GLUCOSE (test code = mg/dL 74-106 GLU) BLOOD UREA NITROGEN mg/dL 9-23 (test code = BUN) GLOMERULAR FILTRATION mL/min >60 RATE (test code = GFR) CREATININE (test code mg/dL 0.55-1.02 = CREAT) CALCIUM (test code = mg/dL 8.7-10.4 CA) BASIC METABOLIC [id number] 20:25:00 Test Item Value Reference Range Interpretation Comments SODIUM (test code = 141 mmol/L 136-145 N Please n ote: New NA) Reference Range Oct 2020 POTASSIUM (test code = mmol/L 3.5-5.1 K) CHLORIDE (test code = 105 mmol/L 98-107 N Please note: New CL) Reference Range Oct 2020 CARBON DIOXIDE (test mmol/L 20-31 code = CO2) GLUCOSE (test code = mg/dL 74-106 GLU) BLOOD UREA NITROGEN mg/dL 9-23 (test code = BUN) GLOMERULAR FILTRATION mL/min >60 RATE (test code = GFR) CREATININE (test code mg/dL 0.55-1.02 = CREAT) CALCIUM (test code = mg/dL 8.7-10.4 CA) BASIC METABOLIC [id number] 17:11:00 Test Item Value Reference Range Interpretation Comments SODIUM (test code = 141 mmol/L 136-145 N Please n ote: New NA) Reference Range Oct 2020 POTASSIUM (test code 5.5 mmol/L 3.5-5.1 H = K) CHLORIDE (test code = 103 mmol/L 98-107 N Please note: New CL) Reference Range Oct 2020 CARBON DIOXIDE (test 35 mmol/L 20-31 H Please note: New code = CO2) Reference Range Oct 2020 GLUCOSE (test code = 228 mg/dL 74-106 H Please note: New GLU) Reference Range Oct 2020 BLOOD UREA NITROGEN 99 mg/dL 9-23 H Please n ote: New (test code = BUN) Reference Range Oct 2020 GLOMERULAR FILTRATION 21 mL/min >60 L Units are RATE (test code = mL/min/1.7 3m2 The GFR) estimated glome rular filtration rate is computed usingp atient race, age (>18) , sex, and serum creat inine. If anyof the ne eded data elements a re missing the Lab oratory cannot compute an estimation of t he glomerular filt ration rate. CREATININE (test code 2.40 mg/dL 0.55-1.02 H Please note: New = CREAT) Reference Range Oct 2020 CALCIUM (test code = 9.6 mg/dL 8.7-10.4 N Please note: New CA) Reference Range Oct 2020 BASIC METABOLIC [id number] 17:10:00 Test Item Value Reference Range Interpretation Comments SODIUM (test code = 141 mmol/L 136-145 N Please n ote: New NA) Reference Range Oct 2020 POTASSIUM (test code mmol/L 3.5-5.1 = K) CHLORIDE (test code = 103 mmol/L 98-107 N Please note: New CL) Reference Range Oct 2020 CARBON DIOXIDE (test 35 mmol/L 20-31 H Please note: New code = CO2) Reference Range Oct 2020 GLUCOSE (test code = 228 mg/dL 74-106 H Please note: New GLU) Reference Range Oct 2020 BLOOD UREA NITROGEN 99 mg/dL 9-23 H Please n ote: New (test code = BUN) Reference Range Oct 2020 GLOMERULAR FILTRATION 21 mL/min >60 L Units are RATE (test code = mL/min/1.7 3m2 The GFR) estimated glome rular filtration rate is computed usingp atient race, age (>18) , sex, and serum creat inine. If anyof the ne eded data elements a re missing the Lab oratory cannot compute an estimation of t he glomerular filt ration rate. CREATININE (test code 2.40 mg/dL 0.55-1.02 H Please note: New = CREAT) Reference Range Oct 2020 CALCIUM (test code = 9.6 mg/dL 8.7-10.4 N Please note: New CA) Reference Range Oct 2020 BASIC METABOLIC [id number] 17:06:00 Test Item Value Reference Range Interpretation Comments SODIUM (test code = 141 mmol/L 136-145 N Please n ote: New NA) Reference Range Oct 2020 POTASSIUM (test code = mmol/L 3.5-5.1 K) CHLORIDE (test code = 103 mmol/L 98-107 N Please note: New CL) Reference Range Oct 2020 CARBON DIOXIDE (test 35 mmol/L 20-31 H Please note: New code = CO2) Reference Range Oct 2020 GLUCOSE (test code = mg/dL 74-106 GLU) BLOOD UREA NITROGEN mg/dL 9-23 (test code = BUN) GLOMERULAR FILTRATION mL/min >60 RATE (test code = GFR) CREATININE (test code mg/dL 0.55-1.02 = CREAT) CALCIUM (test code = mg/dL 8.7-10.4 CA) BASIC METABOLIC [id number] 17:04:00 Test Item Value Reference Range Interpretation Comments SODIUM (test code = 141 mmol/L 136-145 N Please n ote: New NA) Reference Range Oct 2020 POTASSIUM (test code = mmol/L 3.5-5.1 K) CHLORIDE (test code = 103 mmol/L 98-107 N Please note: New CL) Reference Range Oct 2020 CARBON DIOXIDE (test mmol/L 20-31 code = CO2) GLUCOSE (test code = mg/dL 74-106 GLU) BLOOD UREA NITROGEN mg/dL 9-23 (test code = BUN) GLOMERULAR FILTRATION mL/min >60 RATE (test code = GFR) CREATININE (test code mg/dL 0.55-1.02 = CREAT) CALCIUM (test code = mg/dL 8.7-10.4 CA) [id number] 16:26:00 Test Item Value Reference Range Interpretation Comments GLUBED (test code = GLUBED) 210 MG/DL 70-105 H [id number] 12:26:00 Test Item Value Reference Range Interpretation Comments GLUBED (test code = GLUBED) 154 MG/DL 70-105 H BASIC METABOLIC [id number] 06:47:00 Test Item Value Reference Range Interpretation Comments SODIUM (test code = 142 mmol/L 136-145 N Please n ote: New NA) Reference Range Oct 2020 POTASSIUM (test code 5.6 mmol/L 3.5-5.1 H = K) CHLORIDE (test code = 105 mmol/L 98-107 N Please note: New CL) Reference Range Oct 2020 CARBON DIOXIDE (test 34 mmol/L 20-31 H Please note: New code = CO2) Reference Range Oct 2020 GLUCOSE (test code = 106 mg/dL 74-106 N Please note: New GLU) Reference Range Oct 2020 BLOOD UREA NITROGEN 99 mg/dL 9-23 H Please n ote: New (test code = BUN) Reference Range Oct 2020 GLOMERULAR FILTRATION 25 mL/min >60 L Units are RATE (test code = mL/min/1.7 3m2 The GFR) estimated glome rular filtration rate is computed usingp atient race, age (>18) , sex, and serum creat inine. If anyof the ne eded data elements a re missing the Lab oratory cannot compute an estimation of t he glomerular filt ration rate. CREATININE (test code 2.10 mg/dL 0.55-1.02 H Please note: New = CREAT) Reference Range Oct 2020 CALCIUM (test code = 9.0 mg/dL 8.7-10.4 N Please note: New CA) Reference Range Oct 2020 [id number] 06:47:00 Test Item Value Reference Range Interpretation Comments PHOSPHOROUS (test code 3.7 mg/dL 2.4-5.1 N Pleas e note: New = PHOS) Reference Range Oct 2020 [id number] 06:47:00 Test Item Value Reference Range Interpretation Comments MAGNESIUM (test code = 3.3 mg/dL 1.6-2.6 H Pleas e note: New MAG) Reference Range Oct 2020 CBC W/AUTO [id number] 06:20:00 Test Item Value Reference Range Interpretation Comments WHITE BLOOD CELL (test code = 8.8 x10 3/uL 4.8-10.8 N WBC) RED BLOOD CELL (test code = 2.97 x10 6/uL 4.20-5.40 L RBC) HEMOGLOBIN (test code = HGB) 9.2 g/dL 12.0-16.0 L HEMATOCRIT (test code = HCT) 29.7 % 37.0-47.0 L MEAN CELL VOLUME (test code = 100.0 fL 81.0-99.0 H MCV) MEAN CELL HGB (test code = MCH) 31.0 pg 27-31 N MEAN CELL HGB CONCENTRATION 31.0 G/DL 33-36.5 L (test code = MCHC) RED CELL DISTRIBUTION WIDTH 14.5 % 12.9-16.9 N (test code = RDW) PLATELET COUNT (test code = 284 x10 3/uL 150-440 N PLT) MEAN PLATELET VOLUME (test code 10.6 fL 8.9-12.4 N = MPV) NEUTROPHIL % (test code = NT%) 74.4 % 42.2-75.2 N LYMPHOCYTE % (test code = LY%) 9.1 % 20.5-51.1 L MONOCYTE % (test code = MO%) 12.3 % 1.7-9.3 H EOSINOPHIL % (test code = EO%) 3.1 % 0.0-7.0 N BASOPHIL % (test code = BA%) 0.6 % 0-2.5 N NEUTROPHIL # (test code = NT#) 6.55 x10 3/uL 1.80-7.70 N LYMPHOCYTE # (test code = LY#) 0.80 x10 3/uL 1.00-4.80 L MONOCYTE # (test code = MO#) 1.08 x10 3/uL 0.00-0.80 H EOSINOPHIL # (test code = EO#) 0.27 x10 3/uL 0.00-0.45 N BASOPHIL # (test code = BA#) 0.05 x10 3/uL 0.0-0.20 N [id number] 21:57:00 Test Item Value Reference Range Interpretation Comments GLUBED (test code = GLUBED) 105 MG/DL 70-105 N [id number] 17:33:00 Test Item Value Reference Range Interpretation Comments GLUBED (test code = GLUBED) 142 MG/DL 70-105 H [id number] 12:17:00 Test Item Value Reference Range Interpretation Comments GLUBED (test code = GLUBED) 197 MG/DL 70-105 H [id number] 07:05:00 Test Item Value Reference Range Interpretation Comments GLUBED (test code = GLUBED) 109 MG/DL 70-105 H - XR CHEST 1 [id number] 04:51:00 [facility] [place] : 1950 Sex: FPatient Name: KATELIN MUNSON Unit No: [id number] EXAMS: CPT CODE: [id number] XR CHEST 1 V [id number] EXAMINATION: - XR CHEST 1 V LOCATION: H61 INDICATION/CLINICAL HISTORY: s/p PPM COMPARISON: Chest x-ray 05/17/2021. TECHNIQUE: AP view of the chest. FINDINGS: Lung bases are not included in the gryvo-wi-fufa. Right PICC is stable in position. Left-sided pacemaker is again seen. The cardiac silhouetteis enlarged. There is unchanged pulmonary vascular congestion and mild interstitial edema. There is no pneumothorax. IMPRESSION: 1. Cardiomegaly, pulmonary vascular congestion and mild interstitial edema. 2. Lung bases are not included in the ezqtq-ia-pexw for evaluation. 3. No significant change compared to yesterday exam. at 0451 Reported and signed by: Anushka Giron M.D. CC: Gerhard Zavala MD; Florentino Jenkins MD Technologist: Margaret Gaffney Fluoro Time: DAP (Gy m2): Air Kerma (mGy): Trscr Dt/Tm: 05/18/2021 (0451) by:[email or web address] Printed Date/Time: 05/18/2021 (0455) Name: KATELIN MUNSON [facility] Phys: OLIVERIO - Gerhard Zavala [address] : 1950 Age: 70 Sex: [place] [address] Loc: P.0216 1 Exam Date: 05/18/2021 Status: ADM IN PH: FAX: PAGE 1 Signed ReportBASIC METABOLIC [id number] 03:49:00 Test Item Value Reference Range Interpretation Comments SODIUM (test code = 142 mmol/L 136-145 N Please n ote: New NA) Reference Range Oct 2020 POTASSIUM (test code 5.2 mmol/L 3.5-5.1 H = K) CHLORIDE (test code = 105 mmol/L 98-107 N Please note: New CL) Reference Range Oct 2020 CARBON DIOXIDE (test 35 mmol/L 20-31 H Please note: New code = CO2) Reference Range Oct 2020 GLUCOSE (test code = 137 mg/dL 74-106 H Please note: New GLU) Reference Range Oct 2020 BLOOD UREA NITROGEN 99 mg/dL 9-23 H Please n ote: New (test code = BUN) Reference Range Oct 2020 GLOMERULAR FILTRATION 25 mL/min >60 L Units are RATE (test code = mL/min/1.7 3m2 The GFR) estimated glome rular filtration rate is computed usingp atient race, age (>18) , sex, and serum creat inine. If anyof the ne eded data elements a re missing the Lab oratory cannot compute an estimation of t he glomerular filt ration rate. CREATININE (test code 2.10 mg/dL 0.55-1.02 H Please note: New = CREAT) Reference Range Oct 2020 CALCIUM (test code = 9.1 mg/dL 8.7-10.4 Please note: New CA) Reference Range Oct 2020 [id number] 03:49:00 Test Item Value Reference Range Interpretation Comments PHOSPHOROUS (test code 3.9 mg/dL 2.4-5.1 N Pleas e note: New = PHOS) Reference Range Oct 2020 [id number] 03:49:00 Test Item Value Reference Range Interpretation Comments MAGNESIUM (test code = 3.1 mg/dL 1.6-2.6 H Pleas e note: New MAG) Reference Range Oct 2020 [id number] 21:46:00 Test Item Value Reference Range Interpretation Comments GLUBED (test code = GLUBED) 268 MG/DL 70-105 H B-TYPE NATRIURETIC [id number] 20:13:00 Test Item Value Reference Range Interpretation Comments B-TYPE NATRIURETIC PEPTIDE (test 96 pg/mL <100 N code = BNP) [id number] 17:41:00 Test Item Value Reference Range Interpretation Comments GLUBED (test code = GLUBED) 281 MG/DL 70-105 H - XR CHEST 1 [id number] 15:53:00 [facility] : 1950 Sex: FPatient Name: KATELIN MUNSON Unit No: [id number] EXAMS: CPT CODE: [id number] XR CHEST 1 V 11224 Location: A1 EXAM: XR CHEST 1 VIEW INDICATION: evaluate pulmonary edema COMPARISON: Chest radiograph dated 05/17/2021 TECHNIQUE: AP Chest FINDINGS: Lines, tubes and hardware: There is a left-sided pacemaker in place; transvenous leads are obscured secondary to technique. Right PICC tip is partially obscured, but likely overlies the SVC. Lungs and pleura: There is prominence of the pulmonary vasculature. There is similar to slightly improved appearance of predominantly bilateral perihilar and lower lobe interstitial opacities. Evaluation for pleural effusion is limited given technique; given this, no definite pleural effusion. No appreciable pneumothorax. Heart and mediastinum: The cardiomediastinal silhouette is enlarged, but stable. Bones: No acute bony abnormality is identified. IMPRESSION: 1.Lines and tubes, as above. 2. Similar to minimally improved interstitial opacities bilaterally, suggestive of interstitial pulmonary edema. 3. Persistent cardiomegaly and pulmonary vascular congestion. at 1553 Reported and signedby: SUMEET HUBER M.D. CC: Tru Webber MD; Florentino Jenkins MD Technologist: Misael Barajas Time: DAP (Gy m2): Air Kerma (mGy): Trscr Dt/Tm: 05/17/2021 (1553) by:[email or web address] Printed Date/Time: 05/08 (9756) Name: KATELIN MUNSON [facility] Phys: Tru Larsen MD [address] : 1950 Age: 70 Sex: [place] [address] Loc: P.0216 1 Exam Date: 05/17/2021 Status: ADM IN PH: FAX: PAGE 1 Signed [id number] 11:08:00 Test Item Value Reference Range Interpretation Comments GLUBED (test code = GLUBED) 205 MG/DL 70-105 H [id number] 06:27:00 Test Item Value Reference Range Interpretation Comments GLUBED (test code = GLUBED) 136 MG/DL 70-105 H - XR CHEST 1 [id number] 04:26:00 [facility] : 1950 Sex: FPatient Name: KATELIN MUNSON Unit No: [id number] EXAMS: CPT CODE: [id number] XR CHEST 1 V 35628 EXAMINATION: - XR CHEST 1 V LOCATION: 1 INDICATION/CLINICAL HISTORY: s/p PPM COMPARISON: Chest x-ray 05/16/2021. TECHNIQUE: AP view of the chest. FINDINGS: Left-sided pacemaker is stable in position. The cardiac silhouette is enlarged. There is pulmonary vascular congestion and mild interstitial edema. There is no consolidation, pneumothorax or pleural effusion. IMPRESSION: 1. No significant interval change. 2. Cardiomegaly with features of mild volume overload/CHF. at 0426 Reported and signed by: Anushka Giron M.D. CC: Gerhard Vidales; Florentino Jenkins MD Technologist: Margaret Gaffney Fluoro Time: DAP (Gy m2): Air Kerma (mGy): Trscr Dt/Tm: 05/17/2021 (0426) by:[email or web address] Printed Date/Time: 05/17/2021 (0429) Name: KATELIN MUNSON [facility] Phys: Gerhard [place] [address] : 1950 Age: 70 Sex: [place] [address] Loc: P.0216 1 Exam Date: 05/17/2021 Status: ADM IN PH: FAX: PAGE 1 Signed [id number] 22:35:00 Test Item Value Reference Range Interpretation Comments GLUBED (test code = GLUBED) 211 MG/DL 70-105 H [id number] 17:20:00 Test Item Value Reference Range Interpretation Comments GLUBED (test code = GLUBED) 216 MG/DL 70-105 H [id number] 11:28:00 Test Item Value Reference Range Interpretation Comments GLUBED (test code = GLUBED) 203 MG/DL 70-105 H [id number] 08:19:00 Test Item Value Reference Range Interpretation Comments GLUBED (test code = GLUBED) 105 MG/DL 70-105 N - XR CHEST 1 [id number] 07:42:00 [facility] : 1950 Sex: FPatient Name: KATELIN MUNSON Unit No: [id number] EXAMS: CPT CODE: [id number] XR CHEST 1 V 97121 Chest one view AP 05/16/2021 7:41 AM CLINICAL INDICATION: Pacemaker COMPARISON: 05/14/2021 LOCATION: W1 IMPRESSION: No pneumothorax is evident. Cardiomediastinal contours are stable. Pulmonary edema is improved and is now mild in degree. Support hardware is unchanged in position. at 0742 Reported and signed by: YOLANDA MALDONADO M.D. CC: Gerhard Zavala MD; Florentino Jenkins MD Technologist: Margaret Gaffney Fluoro Time: DAP (Gy m2): Air Kerma (mGy): Trscr Dt/Tm: 05/16/2021 (0742) by:[email or web address] Printed Date/Time: 05/16/2021 (2345 ) Name: KATELIN MUNSON [facility] Phys: Gerhard Madison [address] : 1950 Age: 70 Sex: [place] [address] Loc: P.0216 1 Exam Date: 05/16/2021 Status: ADM IN PH: FAX: PAGE 1 Signed ReportBASIC METABOLIC [id number] 04:19:00 Test Item Value Reference Range Interpretation Comments SODIUM (test code = 141 mmol/L 136-145 N Please n ote: New NA) Reference Range Oct 2020 POTASSIUM (test code 5.0 mmol/L 3.5-5.1 N = K) CHLORIDE (test code = 102 mmol/L 98-107 N Please note: New CL) Reference Range Oct 2020 CARBON DIOXIDE (test 35 mmol/L 20-31 H Please note: New code = CO2) Reference Range Oct 2020 GLUCOSE (test code = 103 mg/dL 74-106 N Please note: New GLU) Reference Range Oct 2020 BLOOD UREA NITROGEN 98 mg/dL 9-23 H Please n ote: New (test code = BUN) Reference Range Oct 2020 GLOMERULAR FILTRATION 22 mL/min >60 L Units are RATE (test code = mL/min/1.7 3m2 The GFR) estimated glome rular filtration rate is computed usingp atient race, age (>18) , sex, and serum creat inine. If anyof the ne eded data elements a re missing the Lab oratory cannot compute an estimation of t he glomerular filt ration rate. CREATININE (test code 2.30 mg/dL 0.55-1.02 H Please note: New = CREAT) Reference Range Oct 2020 CALCIUM (test code = 8.0 mg/dL 8.7-10.4 L Please note: New CA) Reference Range Oct 2020 [id number] 04:19:00 Test Item Value Reference Range Interpretation Comments PHOSPHOROUS (test code 4.7 mg/dL 2.4-5.1 N Pleas e note: New = PHOS) Reference Range Oct 2020 [id number] 04:19:00 Test Item Value Reference Range Interpretation Comments MAGNESIUM (test code = 2.7 mg/dL 1.6-2.6 H Pleas e note: New MAG) Reference Range Oct 2020 CBC W/AUTO [id number] 04:01:00 Test Item Value Reference Range Interpretation Comments WHITE BLOOD CELL (test code = 10.3 x10 3/uL 4.8-10.8 N WBC) RED BLOOD CELL (test code = 3.07 x10 6/uL 4.20-5.40 L RBC) HEMOGLOBIN (test code = HGB) 9.5 g/dL 12.0-16.0 L HEMATOCRIT (test code = HCT) 30.2 % 37.0-47.0 L MEAN CELL VOLUME (test code = 98.4 fL 81.0-99.0 N MCV) MEAN CELL HGB (test code = MCH) 30.9 pg 27-31 N MEAN CELL HGB CONCENTRATION 31.5 G/DL 33-36.5 L (test code = MCHC) RED CELL DISTRIBUTION WIDTH 14.1 % 12.9-16.9 N (test code = RDW) PLATELET COUNT (test code = 268 x10 3/uL 150-440 N PLT) MEAN PLATELET VOLUME (test code 10.6 fL 8.9-12.4 N = MPV) NEUTROPHIL % (test code = NT%) 72.6 % 42.2-75.2 N LYMPHOCYTE % (test code = LY%) 8.9 % 20.5-51.1 L MONOCYTE % (test code = MO%) 12.8 % 1.7-9.3 H EOSINOPHIL % (test code = EO%) 4.3 % 0.0-7.0 N BASOPHIL % (test code = BA%) 0.8 % 0-2.5 N NEUTROPHIL # (test code = NT#) 7.49 x10 3/uL 1.80-7.70 N LYMPHOCYTE # (test code = LY#) 0.92 x10 3/uL 1.00-4.80 L MONOCYTE # (test code = MO#) 1.32 x10 3/uL 0.00-0.80 H EOSINOPHIL # (test code = EO#) 0.44 x10 3/uL 0.00-0.45 N BASOPHIL # (test code = BA#) 0.08 x10 3/uL 0.0-0.20 N [id number] 20:24:00 Test Item Value Reference Range Interpretation Comments GLUBED (test code = GLUBED) 155 MG/DL 70-105 H [id number] 16:46:00 Test Item Value Reference Range Interpretation Comments GLUBED (test code = GLUBED) 181 MG/DL 70-105 H [id number] 08:08:00 Test Item Value Reference Range Interpretation Comments GLUBED (test code = GLUBED) 174 MG/DL 70-105 H BASIC METABOLIC [id number] 05:15:00 Test Item Value Reference Range Interpretation Comments SODIUM (test code = 139 mmol/L 136-145 N Please n ote: New NA) Reference Range Oct 2020 POTASSIUM (test code 5.1 mmol/L 3.5-5.1 N = K) CHLORIDE (test code = 99 mmol/L 98-107 N Please note: New CL) Reference Range Oct 2020 CARBON DIOXIDE (test 34 mmol/L 20-31 H Please note: New code = CO2) Reference Range Oct 2020 GLUCOSE (test code = 180 mg/dL 74-106 H Please note: New GLU) Reference Range Oct 2020 BLOOD UREA NITROGEN 103 mg/dL 9-23 H Please n ote: New (test code = BUN) Reference Range Oct 2020 GLOMERULAR FILTRATION 21 mL/min >60 L Units are RATE (test code = mL/min/1.7 3m2 The GFR) estimated glome rular filtration rate is computed usingp atient race, age (>18) , sex, and serum creat inine. If anyof the ne eded data elements a re missing the Lab oratory cannot compute an estimation of t he glomerular filt ration rate. CREATININE (test code 2.40 mg/dL 0.55-1.02 H Please note: New = CREAT) Reference Range Oct 2020 CALCIUM (test code = 7.8 mg/dL 8.7-10.4 L Please note: New CA) Reference Range Oct 2020 COMPREHENSIVE METABOLIC [id number] 05:15:00 Test Item Value Reference Range Interpretation Comments TOTAL PROTEIN (test 5.3 g/dL 5.7-8.2 L Please n ote: New code = PROT) Reference Range Oct 2020 ALBUMIN (test code = 3.4 g/dL 3.2-4.8 N Please note: New ALB) Reference Range Oct 2020 BILIRUBIN TOTAL (test 0.2 mg/dL 0.3-1.2 L Please note: New code = BILT) Reference Range Oct 2020 SGOT/AST (test code = 10 U/L <34 N Please note: New AST) Reference Range Oct 2020 SGPT/ALT (test code = 15 U/L 10-49 N Please note: New ALT) Reference Range Oct 2020 ALKALINE PHOSPHATASE 88 U/L 46-116 N Please note: New (test code = ALKP) Reference Range Oct 2020 [id number] 05:15:00 Test Item Value Reference Range Interpretation Comments PHOSPHOROUS (test code 4.6 mg/dL 2.4-5.1 N Pleas e note: New = PHOS) Reference Range Oct 2020 [id number] 05:15:00 Test Item Value Reference Range Interpretation Comments MAGNESIUM (test code = 2.5 mg/dL 1.6-2.6 N Pleas e note: New MAG) Reference Range Oct 2020 CBC W/AUTO [id number] 05:01:00 Test Item Value Reference Range Interpretation Comments WHITE BLOOD CELL (test code = 10.0 x10 3/uL 4.8-10.8 N WBC) RED BLOOD CELL (test code = 3.00 x10 6/uL 4.20-5.40 L RBC) HEMOGLOBIN (test code = HGB) 9.4 g/dL 12.0-16.0 L HEMATOCRIT (test code = HCT) 29.8 % 37.0-47.0 L MEAN CELL VOLUME (test code = 99.3 fL 81.0-99.0 H MCV) MEAN CELL HGB (test code = MCH) 31.3 pg 27-31 H MEAN CELL HGB CONCENTRATION 31.5 G/DL 33-36.5 L (test code = MCHC) RED CELL DISTRIBUTION WIDTH 13.8 % 12.9-16.9 N (test code = RDW) PLATELET COUNT (test code = 251 x10 3/uL 150-440 N PLT) MEAN PLATELET VOLUME (test code 10.5 fL 8.9-12.4 N = MPV) NEUTROPHIL % (test code = NT%) 74.2 % 42.2-75.2 N LYMPHOCYTE % (test code = LY%) 7.0 % 20.5-51.1 L MONOCYTE % (test code = MO%) 13.9 % 1.7-9.3 H EOSINOPHIL % (test code = EO%) 3.6 % 0.0-7.0 N BASOPHIL % (test code = BA%) 0.5 % 0-2.5 N NEUTROPHIL # (test code = NT#) 7.38 x10 3/uL 1.80-7.70 N LYMPHOCYTE # (test code = LY#) 0.70 x10 3/uL 1.00-4.80 L MONOCYTE # (test code = MO#) 1.38 x10 3/uL 0.00-0.80 H EOSINOPHIL # (test code = EO#) 0.36 x10 3/uL 0.00-0.45 N BASOPHIL # (test code = BA#) 0.05 x10 3/uL 0.0-0.20 N [id number] 21:01:00 Test Item Value Reference Range Interpretation Comments GLUBED (test code = GLUBED) 290 MG/DL 70-105 H [id number] 17:35:00 Test Item Value Reference Range Interpretation Comments GLUBED (test code = GLUBED) 202 MG/DL 70-105 H [id number] 11:54:00 Test Item Value Reference Range Interpretation Comments GLUBED (test code = GLUBED) 261 MG/DL 70-105 H Covid 19 InHouse [id number] 10:51:00 Test Item Value Reference Range Interpretation Comments Covid 19 Negative Negative A negative resu lt does not InHouse NTX preclude the SA RS-COV-2 (test code = viralinfection and should not be [id number]) used as the so le basis forpatient leigh gement decisions. Negative result s must becombined with clinical o bservations, patient history , andepidemiologi leonardo information. Viral levels in clinicalsamples below the detec tion limit of the assay could jose d tonegative results. This t est was performed using the [employer] SmartTM COVID-19 PCRassay. This test was developed and i ts performancechar acteristics were determined by Sara tate [facility]. Thi s test has notbeen FDA aurora ared or approved. This test is au thorized by theFDA under Em ergency Use Authorization(E UA). The EUA willremain in e ffect unless it is terminated o r revoked by FDA . Testing marbella eters have not been validated for screeningasympt omatic patients. This test was v alidated according to e FDA's guidancedocumen t "Policy for Diagnostics uli ting in LaboratoriesCer tified to Perform High Complexity Testing under CLIA". Spec Comments: FAMILY MEMBERS/VISITORS TESTING POSITIVESpec Comments: FAMILY MEMBERS/VISITORS TESTING POSITIVEFirst test? NoEmployed in Healthcare? NoSymptomatic as defined by CDC? NoHospitalized due to COVID? NoIn ICU due to COVID? NoResident in a congregate care setting? No? NoAge at collection: Y- XR CHEST 1 [id number] 08:06:00 [facility] [place] : 1950 Sex: FPatient Name: KATELIN MUNSON Unit No: [id number] EXAMS: CPT CODE: [id number] XR CHEST 1 V 53813 CHEST, SINGLE VIEW DICTATION LOCATION A1 HISTORY: Infiltrates. A single view of the chest at 4:34AM was compared to a prior exam from May 13, 2021. FINDINGS: Bilateral interstitial infiltratesare stable along with cardiomegaly and pulmonary vascular congestion. Right arm PICC is unchanged. No new findings are seen. IMPRESSION: No change from the prior exam. at 0806 Reported and signed by: Eddie Muniz Jr, MD CC: Gerhard Zavala MD; Florentino Jenkins MD Technologist: Margaret Gaffney Fluoro Time: DAP (Gy m2): Air Kerma (mGy): Trscr Dt/Tm: 05/14/2021 (805) by:Viky Printed Date/Time: 05/14/2021 (808) Name: KATELIN FARRELL [facility] Phys: Gerhard Madison [address] : 1950 Age: 70 Sex: F [place], [place] [address] No[facility] [id number] Loc: P.0216 1 Exam Date: 05/14/2021 Status: ADM IN PH: FAX: PAGE 1 Signed [id number] 07:36:00 Test Item Value Reference Range Interpretation Comments GLUBED (test code = GLUBED) 146 MG/DL 70-105 H BASIC METABOLIC [id number] 04:27:00 Test Item Value Reference Range Interpretation Comments SODIUM (test code = 139 mmol/L 136-145 N Please n ote: New NA) Reference Range Oct 2020 POTASSIUM (test code 5.2 mmol/L 3.5-5.1 H = K) CHLORIDE (test code = 102 mmol/L 98-107 N Please note: New CL) Reference Range Oct 2020 CARBON DIOXIDE (test 34 mmol/L 20-31 H Please note: New code = CO2) Reference Range Oct 2020 GLUCOSE (test code = 114 mg/dL 74-106 H Please note: New GLU) Reference Range Oct 2020 BLOOD UREA NITROGEN 84 mg/dL 9-23 H Please n ote: New (test code = BUN) Reference Range Oct 2020 GLOMERULAR FILTRATION 22 mL/min >60 L Units are RATE (test code = mL/min/1.7 3m2 The GFR) estimated glome rular filtration rate is computed usingp atient race, age (>18) , sex, and serum creat inine. If anyof the ne eded data elements a re missing the Lab oratory cannot compute an estimation of t he glomerular filt ration rate. CREATININE (test code 2.30 mg/dL 0.55-1.02 H Please note: New = CREAT) Reference Range Oct 2020 CALCIUM (test code = 8.8 mg/dL 8.7-10.4 N Please note: New CA) Reference Range Oct 2020 [id number] 04:27:00 Test Item Value Reference Range Interpretation Comments PHOSPHOROUS (test code 4.6 mg/dL 2.4-5.1 N Pleas e note: New = PHOS) Reference Range Oct 2020 [id number] 04:27:00 Test Item Value Reference Range Interpretation Comments MAGNESIUM (test code = 2.4 mg/dL 1.6-2.6 N Pleas e note: New MAG) Reference Range Oct 2020 CBC W/AUTO [id number] 04:02:00 Test Item Value Reference Range Interpretation Comments WHITE BLOOD CELL (test code = 9.8 x10 3/uL 4.8-10.8 N WBC) RED BLOOD CELL (test code = 3.17 x10 6/uL 4.20-5.40 L RBC) HEMOGLOBIN (test code = HGB) 9.7 g/dL 12.0-16.0 L HEMATOCRIT (test code = HCT) 31.4 % 37.0-47.0 L MEAN CELL VOLUME (test code = 99.1 fL 81.0-99.0 H MCV) MEAN CELL HGB (test code = MCH) 30.6 pg 27-31 N MEAN CELL HGB CONCENTRATION 30.9 G/DL 33-36.5 L (test code = MCHC) RED CELL DISTRIBUTION WIDTH 14.0 % 12.9-16.9 N (test code = RDW) PLATELET COUNT (test code = 257 x10 3/uL 150-440 N PLT) MEAN PLATELET VOLUME (test code 10.5 fL 8.9-12.4 N = MPV) NEUTROPHIL % (test code = NT%) 73.1 % 42.2-75.2 N LYMPHOCYTE % (test code = LY%) 7.6 % 20.5-51.1 L MONOCYTE % (test code = MO%) 14.6 % 1.7-9.3 H EOSINOPHIL % (test code = EO%) 3.5 % 0.0-7.0 N BASOPHIL % (test code = BA%) 0.7 % 0-2.5 N NEUTROPHIL # (test code = NT#) 7.15 x10 3/uL 1.80-7.70 N LYMPHOCYTE # (test code = LY#) 0.74 x10 3/uL 1.00-4.80 L MONOCYTE # (test code = MO#) 1.43 x10 3/uL 0.00-0.80 H EOSINOPHIL # (test code = EO#) 0.34 x10 3/uL 0.00-0.45 N BASOPHIL # (test code = BA#) 0.07 x10 3/uL 0.0-0.20 N [id number] 20:38:00 Test Item Value Reference Range Interpretation Comments GLUBED (test code = GLUBED) 314 MG/DL 70-105 HH [id number] 17:22:00 Test Item Value Reference Range Interpretation Comments GLUBED (test code = GLUBED) 260 MG/DL 70-105 H [id number] 13:18:00 Test Item Value Reference Range Interpretation Comments GLUBED (test code = GLUBED) 264 MG/DL 70-105 H [id number] 08:50:00 Test Item Value Reference Range Interpretation Comments GLUBED (test code = GLUBED) 196 MG/DL 70-105 H - XR CHEST 1 [id number] 08:05:00 [facility] : 1950 Sex: FPatient Name: KATELIN MUNSON Unit No: [id number] EXAMS: CPT CODE: [id number] XR CHEST 1 V 49000 Portable AP chest, 1 view Location Code: B2 CLINICAL HISTORY: Evaluation of infiltrates, ET tube, and lines COMPARISON: 05/12/2021 COMMENT: Mild central congestion remains. There is no consolidation oreffusion. The cardiomediastinal silhouette is stable. Left chest pacer again noted. There is no acute osseous abnormality. Right upper extremity PICC line is stable. IMPRESSION: No significant intervalchange. at 0805 Reported and signed by: MANUEL NOVOA M.D. CC: Gerhard Zavala MD; Florentino Jenkins MD Technologist: Fab Barajas Time: DAP (Gy m2): Air Kerma (mGy): Trscr Dt/Tm: 05/13/2021 (0805) by:[email or web address] Printed Date/Time: 05/13/2021 (0808) Name: KATELIN MUNSON [facility] Phys: Gerhard Madison [address] : 1950 Age: 70 Sex: [place] [id number] Loc: P.0216 1 Exam Date: 05/13/2021 Status: ADM IN PH: FAX: PAGE 1 Signed ReportBASIC METABOLIC PANEL 2021-05-13 06:30:00 Test Item Value Reference Range Interpretation Comments SODIUM (test code = 140 mmol/L 136-145 N Please n ote: New NA) Reference Range Oct 2020 POTASSIUM (test code 4.6 mmol/L 3.5-5.1 N = K) CHLORIDE (test code = 102 mmol/L 98-107 N Please note: New CL) Reference Range Oct 2020 CARBON DIOXIDE (test 33 mmol/L 20-31 H Please note: New code = CO2) Reference Range Oct 2020 GLUCOSE (test code = 135 mg/dL 74-106 H Please note: New GLU) Reference Range Oct 2020 BLOOD UREA NITROGEN 83 mg/dL 9-23 H Please n ote: New (test code = BUN) Reference Range Oct 2020 GLOMERULAR FILTRATION 22 mL/min >60 L Units are RATE (test code = mL/min/1.7 3m2 The GFR) estimated glome rular filtration rate is computed usingp atient race, age (>18) , sex, and serum creat inine. If anyof the ne eded data elements a re missing the Lab oratory cannot compute an estimation of t he glomerular filt ration rate. CREATININE (test code 2.30 mg/dL 0.55-1.02 H Please note: New = CREAT) Reference Range Oct 2020 CALCIUM (test code = 9.2 mg/dL 8.7-10.4 N Please note: New CA) Reference Range Oct 2020 [id number] 06:30:00 Test Item Value Reference Range Interpretation Comments PHOSPHOROUS (test code 4.8 mg/dL 2.4-5.1 N Pleas e note: New = PHOS) Reference Range Oct 2020 [id number] 06:30:00 Test Item Value Reference Range Interpretation Comments MAGNESIUM (test code = 2.4 mg/dL 1.6-2.6 N Pleas e note: New MAG) Reference Range Oct 2020 CBC W/AUTO [id number] 06:27:00 Test Item Value Reference Range Interpretation Comments WHITE BLOOD CELL (test code = 10.4 x10 3/uL 4.8-10.8 N WBC) RED BLOOD CELL (test code = 3.00 x10 6/uL 4.20-5.40 L RBC) HEMOGLOBIN (test code = HGB) 9.4 g/dL 12.0-16.0 L HEMATOCRIT (test code = HCT) 30.1 % 37.0-47.0 L MEAN CELL VOLUME (test code = 100.3 fL 81.0-99.0 H MCV) MEAN CELL HGB (test code = MCH) 31.3 pg 27-31 H MEAN CELL HGB CONCENTRATION 31.2 G/DL 33-36.5 L (test code = MCHC) RED CELL DISTRIBUTION WIDTH 14.3 % 12.9-16.9 N (test code = RDW) PLATELET COUNT (test code = 224 x10 3/uL 150-440 N PLT) MEAN PLATELET VOLUME (test code 10.5 fL 8.9-12.4 N = MPV) NEUTROPHIL % (test code = NT%) 76.0 % 42.2-75.2 H LYMPHOCYTE % (test code = LY%) 7.2 % 20.5-51.1 L MONOCYTE % (test code = MO%) 12.8 % 1.7-9.3 H EOSINOPHIL % (test code = EO%) 3.1 % 0.0-7.0 N BASOPHIL % (test code = BA%) 0.4 % 0-2.5 N NEUTROPHIL # (test code = NT#) 7.91 x10 3/uL 1.80-7.70 H LYMPHOCYTE # (test code = LY#) 0.75 x10 3/uL 1.00-4.80 L MONOCYTE # (test code = MO#) 1.33 x10 3/uL 0.00-0.80 H EOSINOPHIL # (test code = EO#) 0.32 x10 3/uL 0.00-0.45 N BASOPHIL # (test code = BA#) 0.04 x10 3/uL 0.0-0.20 N COVID 19 INHOUSE [id number] 23:23:00 Test Item Value Reference Range Interpretation Comments COVID 19 INHOUSE NEGATIVE NEGATIVE Negative re sults, from AG (test code = patients wit h symptom onset [id number]) beyondfive days , should be treated as pres umptive and confirmationwit h a molecular assay, if neces juan for patientmanageme nt, may be performed. Nega tive results do not ruleout COVID-19 and should not be u sed as the sole basis fort reatment or patient managem ent decisions, includinginfect ion control decisions. Nega tive results should beconsid ered in the context of a pa tient's recent exposure s,history and the presence of clinical signs and sympt omsconsistent with COVID-19. Spec Comments: FAMILY/VISITORS TESTED [id number] 21:03:00 Test Item Value Reference Range Interpretation Comments GLUBED (test code = GLUBED) 186 MG/DL 70-105 H [id number] 17:55:00 Test Item Value Reference Range Interpretation Comments GLUBED (test code = GLUBED) 231 MG/DL 70-105 H [id number] 17:55:00 Test Item Value Reference Range Interpretation Comments GLUBED (test code = GLUBED) 166 MG/DL 70-105 H BASIC METABOLIC [id number] 11:42:00 Test Item Value Reference Range Interpretation Comments SODIUM (test code = 136 mmol/L 136-145 N Please n ote: New NA) Reference Range Oct 2020 POTASSIUM (test code 4.8 mmol/L 3.5-5.1 N = K) CHLORIDE (test code = 101 mmol/L 98-107 N Please note: New CL) Reference Range Oct 2020 CARBON DIOXIDE (test 32 mmol/L 20-31 H Please note: New code = CO2) Reference Range Oct 2020 GLUCOSE (test code = 271 mg/dL 74-106 H Please note: New GLU) Reference Range Oct 2020 BLOOD UREA NITROGEN 75 mg/dL 9-23 H Please n ote: New (test code = BUN) Reference Range Oct 2020 GLOMERULAR FILTRATION 21 mL/min >60 L Units are RATE (test code = mL/min/1.7 3m2 The GFR) estimated glome rular filtration rate is computed usingp atient race, age (>18) , sex, and serum creat inine. If anyof the ne eded data elements a re missing the Lab oratory cannot compute an estimation of t he glomerular filt ration rate. CREATININE (test code 2.40 mg/dL 0.55-1.02 H Please note: New = CREAT) Reference Range Oct 2020 CALCIUM (test code = 8.8 mg/dL 8.7-10.4 N Please note: New CA) Reference Range Oct 2020 [id number] 11:42:00 Test Item Value Reference Range Interpretation Comments PHOSPHOROUS (test code 4.0 mg/dL 2.4-5.1 N Pleas e note: New = PHOS) Reference Range Oct 2020 [id number] 11:42:00 Test Item Value Reference Range Interpretation Comments MAGNESIUM (test code = 2.2 mg/dL 1.6-2.6 N Pleas e note: New MAG) Reference Range Oct 2020 BASIC METABOLIC [id number] 11:26:00 Test Item Value Reference Range Interpretation Comments SODIUM (test code = 136 mmol/L 136-145 N Please n ote: New NA) Reference Range Oct 2020 POTASSIUM (test code 4.8 mmol/L 3.5-5.1 N = K) CHLORIDE (test code = 101 mmol/L 98-107 N Please note: New CL) Reference Range Oct 2020 CARBON DIOXIDE (test 32 mmol/L 20-31 H Please note: New code = CO2) Reference Range Oct 2020 GLUCOSE (test code = 271 mg/dL 74-106 H Please note: New GLU) Reference Range Oct 2020 BLOOD UREA NITROGEN 75 mg/dL 9-23 H Please n ote: New (test code = BUN) Reference Range Oct 2020 GLOMERULAR FILTRATION 21 mL/min >60 L Units are RATE (test code = mL/min/1.7 3m2 The GFR) estimated glome rular filtration rate is computed usingp atient race, age (>18) , sex, and serum creat inine. If anyof the ne eded data elements a re missing the Lab oratory cannot compute an estimation of t he glomerular filt ration rate. CREATININE (test code 2.40 mg/dL 0.55-1.02 H Please note: New = CREAT) Reference Range Oct 2020 CALCIUM (test code = 8.8 mg/dL 8.7-10.4 N Please note: New CA) Reference Range Oct 2020 [id number] 11:26:00 Test Item Value Reference Range Interpretation Comments PHOSPHOROUS (test code = PHOS) mg/dL 2.4-5.1 [id number] 11:26:00 Test Item Value Reference Range Interpretation Comments MAGNESIUM (test code = MAG) mg/dL 1.6-2.6 BASIC METABOLIC [id number] 11:25:00 Test Item Value Reference Range Interpretation Comments SODIUM (test code = 136 mmol/L 136-145 N Please n ote: New NA) Reference Range Oct 2020 POTASSIUM (test code = 4.8 mmol/L 3.5-5.1 N K) CHLORIDE (test code = 101 mmol/L 98-107 N Please note: New CL) Reference Range Oct 2020 CARBON DIOXIDE (test 32 mmol/L 20-31 H Please note: New code = CO2) Reference Range Oct 2020 GLUCOSE (test code = mg/dL 74-106 GLU) BLOOD UREA NITROGEN mg/dL 9-23 (test code = BUN) GLOMERULAR FILTRATION mL/min >60 RATE (test code = GFR) CREATININE (test code mg/dL 0.55-1.02 = CREAT) CALCIUM (test code = mg/dL 8.7-10.4 CA) [id number] 11:25:00 Test Item Value Reference Range Interpretation Comments PHOSPHOROUS (test code = PHOS) mg/dL 2.4-5.1 [id number] 11:25:00 Test Item Value Reference Range Interpretation Comments MAGNESIUM (test code = MAG) mg/dL 1.6-2.6 CBC W/AUTO [id number] 11:09:00 Test Item Value Reference Range Interpretation Comments WHITE BLOOD CELL (test code = 9.9 x10 3/uL 4.8-10.8 N WBC) RED BLOOD CELL (test code = 3.10 x10 6/uL 4.20-5.40 L RBC) HEMOGLOBIN (test code = HGB) 9.5 g/dL 12.0-16.0 L HEMATOCRIT (test code = HCT) 31.3 % 37.0-47.0 L MEAN CELL VOLUME (test code = 101.0 fL 81.0-99.0 H MCV) MEAN CELL HGB (test code = MCH) 30.6 pg 27-31 N MEAN CELL HGB CONCENTRATION 30.4 G/DL 33-36.5 L (test code = MCHC) RED CELL DISTRIBUTION WIDTH 14.6 % 12.9-16.9 N (test code = RDW) PLATELET COUNT (test code = 220 x10 3/uL 150-440 N PLT) MEAN PLATELET VOLUME (test code 10.5 fL 8.9-12.4 N = MPV) NEUTROPHIL % (test code = NT%) 81.5 % 42.2-75.2 H LYMPHOCYTE % (test code = LY%) 5.9 % 20.5-51.1 L MONOCYTE % (test code = MO%) 10.1 % 1.7-9.3 H EOSINOPHIL % (test code = EO%) 1.7 % 0.0-7.0 N BASOPHIL % (test code = BA%) 0.4 % 0-2.5 N NEUTROPHIL # (test code = NT#) 8.03 x10 3/uL 1.80-7.70 H LYMPHOCYTE # (test code = LY#) 0.58 x10 3/uL 1.00-4.80 L MONOCYTE # (test code = MO#) 0.99 x10 3/uL 0.00-0.80 H EOSINOPHIL # (test code = EO#) 0.17 x10 3/uL 0.00-0.45 N BASOPHIL # (test code = BA#) 0.04 x10 3/uL 0.0-0.20 N [id number] 10:43:00 Test Item Value Reference Range Interpretation Comments GLUBED (test code = GLUBED) 289 MG/DL 70-105 H - XR CHEST 1 [id number] 08:20:00 [facility] : 1950 Sex: FPatient Name: KATELIN MUNSON Unit No: [id number] EXAMS: CPT CODE: [id number] XR CHEST 1 V 11855 Portable AP chest, 1 view Location Code: B2 CLINICAL HISTORY: Infiltrate, pneumonia COMPARISON: 05/11/2021 COMMENT: Mild central congestive changes remain. Patchy bibasilar airspace disease is stable.Cardiomegaly is unchanged. Right upper tree PICC line and left chest pacer again noted. There is no acute osseous abnormality. IMPRESSION: Persistent mild congestion and edema with patchy bibasilar airspace disease. at 0820 Reported and signed by: MANUEL NOVOA M.D. CC: Gerhard Zavala MD; Florentino Jenkins MD Technologist: Taylor Barajas Time: DAP (Gy m2): Air Kerma (mGy): Trscr Dt/Tm: 05/12/2021 (0820) by:[email or web address] Print ed Date/Time: 05/12/2021 (0824) Name: KATELIN MUNSON [facility] Phys: Gerhard Madison [address] : 1950 Age: 70 Sex: F [place], [place] [id number] Loc: P.0216 1 Exam Date: 05/12/2021 Status: ADM IN PH: FAX: PAGE 1 Signed ReportBASIC METABOLIC [id number] 04:00:00 Test Item Value Reference Range Interpretation Comments SODIUM (test code = 139 mmol/L 136-145 N Please n ote: New NA) Reference Range Oct 2020 POTASSIUM (test code 4.8 mmol/L 3.5-5.1 N = K) CHLORIDE (test code = 104 mmol/L 98-107 N Please note: New CL) Reference Range Oct 2020 CARBON DIOXIDE (test 30 mmol/L 20-31 N Please note: New code = CO2) Reference Range Oct 2020 GLUCOSE (test code = 177 mg/dL 74-106 H Please note: New GLU) Reference Range Oct 2020 BLOOD UREA NITROGEN 73 mg/dL 9-23 H Please n ote: New (test code = BUN) Reference Range Oct 2020 GLOMERULAR FILTRATION 20 mL/min >60 L Units are RATE (test code = mL/min/1.7 3m2 The GFR) estimated glome rular filtration rate is computed usingp atient race, age (>18) , sex, and serum creat inine. If anyof the ne eded data elements a re missing the Lab oratory cannot compute an estimation of t he glomerular filt ration rate. CREATININE (test code 2.50 mg/dL 0.55-1.02 H Please note: New = CREAT) Reference Range Oct 2020 CALCIUM (test code = 8.9 mg/dL 8.7-10.4 N Please note: New CA) Reference Range Oct 2020 [id number] 04:00:00 Test Item Value Reference Range Interpretation Comments PHOSPHOROUS (test code 4.5 mg/dL 2.4-5.1 N Pleas e note: New = PHOS) Reference Range Oct 2020 [id number] 04:00:00 Test Item Value Reference Range Interpretation Comments MAGNESIUM (test code = 2.3 mg/dL 1.6-2.6 N Pleas e note: New MAG) Reference Range Oct 2020 CBC W/AUTO [id number] 03:38:00 Test Item Value Reference Range Interpretation Comments WHITE BLOOD CELL (test code = 9.9 x10 3/uL 4.8-10.8 N WBC) RED BLOOD CELL (test code = 2.95 x10 6/uL 4.20-5.40 L RBC) HEMOGLOBIN (test code = HGB) 9.2 g/dL 12.0-16.0 L HEMATOCRIT (test code = HCT) 30.1 % 37.0-47.0 L MEAN CELL VOLUME (test code = 102.0 fL 81.0-99.0 H MCV) MEAN CELL HGB (test code = MCH) 31.2 pg 27-31 H MEAN CELL HGB CONCENTRATION 30.6 G/DL 33-36.5 L (test code = MCHC) RED CELL DISTRIBUTION WIDTH 14.8 % 12.9-16.9 N (test code = RDW) PLATELET COUNT (test code = 200 x10 3/uL 150-440 N PLT) MEAN PLATELET VOLUME (test code 10.6 fL 8.9-12.4 N = MPV) NEUTROPHIL % (test code = NT%) 78.3 % 42.2-75.2 H LYMPHOCYTE % (test code = LY%) 7.1 % 20.5-51.1 L MONOCYTE % (test code = MO%) 11.9 % 1.7-9.3 H EOSINOPHIL % (test code = EO%) 2.0 % 0.0-7.0 N BASOPHIL % (test code = BA%) 0.4 % 0-2.5 N NEUTROPHIL # (test code = NT#) 7.73 x10 3/uL 1.80-7.70 H LYMPHOCYTE # (test code = LY#) 0.70 x10 3/uL 1.00-4.80 L MONOCYTE # (test code = MO#) 1.17 x10 3/uL 0.00-0.80 H EOSINOPHIL # (test code = EO#) 0.20 x10 3/uL 0.00-0.45 N BASOPHIL # (test code = BA#) 0.04 x10 3/uL 0.0-0.20 N [id number] 19:56:00 Test Item Value Reference Range Interpretation Comments GLUBED (test code = GLUBED) 227 MG/DL 70-105 H [id number] 16:40:00 Test Item Value Reference Range Interpretation Comments GLUBED (test code = GLUBED) 223 MG/DL 70-105 H [id number] 10:39:00 Test Item Value Reference Range Interpretation Comments GLUBED (test code = GLUBED) 295 MG/DL 70-105 H - XR CHEST 1 [id number] 09:36:00 [facility] 1950 Sex: FPatient Name: KATELIN MUNSON Unit No: [id number] EXAMS: CPT CODE: [id number] XR CHEST 1 V 53103 EXAM: Chest one view. Location: A1 HISTORY: pulmonary edema? COMPARISON: 05/10/2021 FINDINGS: Pacemaker generator overlies the left axilla with leads in right atrium and right ventricle. Cardiac silhouette enlargement is unchanged. There is redemonstration of right subclavian PICC line with tip at the mid to distal SVC. Diffuse interstitial opacities are redemonstrated. More confluent airspace opacities in the lung bases are unchanged. Questionable small layering bilateral pleural effusions are likely unchanged. There is no pneumothorax. Skeletal structures are stable. IMPRESSION: No interval change in the chest since 05/10/2021. at 0936 Reported and signed by: JOAQUIN SHAW M.D. CC: Gerhard Zavala MD; Florentino Jenkins MD Technologist: Lou Barajas Time: DAP (Gy m2): Air Kerma (mGy): Trscr Dt/Tm: 05/11/2021 (0936) by:[email or web address] PrintedDate/Time: 05/11/2021 (0939) Name: KATELIN MUNSON [facility] Phys: Gerhard Madison [address] : 1950 Age: 70 Sex: [place] [address] Loc:P.[id number] 1 Exam Date: 05/11/2021 Status: ADM IN PH: FAX: PAGE 1 Signed [id number] 07:41:00 Test Item Value Reference Range Interpretation Comments GLUBED (test code = GLUBED) 184 MG/DL 70-105 H BASIC METABOLIC [id number] 04:51:00 Test Item Value Reference Range Interpretation Comments SODIUM (test code = 141 mmol/L 136-145 N Please n ote: New NA) Reference Range Oct 2020 POTASSIUM (test code 4.5 mmol/L 3.5-5.1 N = K) CHLORIDE (test code = 106 mmol/L 98-107 N Please note: New CL) Reference Range Oct 2020 CARBON DIOXIDE (test 29 mmol/L 20-31 N Please note: New code = CO2) Reference Range Oct 2020 GLUCOSE (test code = 172 mg/dL 74-106 H Please note: New GLU) Reference Range Oct 2020 BLOOD UREA NITROGEN 64 mg/dL 9-23 H Please n ote: New (test code = BUN) Reference Range Oct 2020 GLOMERULAR FILTRATION 22 mL/min >60 L Units are RATE (test code = mL/min/1.7 3m2 The GFR) estimated glome rular filtration rate is computed usingp atient race, age (>18) , sex, and serum creat inine. If anyof the ne eded data elements a re missing the Lab oratory cannot compute an estimation of t he glomerular filt ration rate. CREATININE (test code 2.30 mg/dL 0.55-1.02 H Please note: New = CREAT) Reference Range Oct 2020 CALCIUM (test code = 9.5 mg/dL 8.7-10.4 N Please note: New CA) Reference Range Oct 2020 [id number] 04:51:00 Test Item Value Reference Range Interpretation Comments PHOSPHOROUS (test code 4.0 mg/dL 2.4-5.1 N Pleas e note: New = PHOS) Reference Range Oct 2020 [id number] 04:51:00 Test Item Value Reference Range Interpretation Comments MAGNESIUM (test code = 2.3 mg/dL 1.6-2.6 N Pleas e note: New MAG) Reference Range Oct 2020 CBC W/AUTO [id number] 04:40:00 Test Item Value Reference Range Interpretation Comments WHITE BLOOD CELL (test code = 11.0 x10 3/uL 4.8-10.8 H WBC) RED BLOOD CELL (test code = 3.27 x10 6/uL 4.20-5.40 L RBC) HEMOGLOBIN (test code = HGB) 10.3 g/dL 12.0-16.0 L HEMATOCRIT (test code = HCT) 33.5 % 37.0-47.0 L MEAN CELL VOLUME (test code = 102.4 fL 81.0-99.0 H MCV) MEAN CELL HGB (test code = MCH) 31.5 pg 27-31 H MEAN CELL HGB CONCENTRATION 30.7 G/DL 33-36.5 L (test code = MCHC) RED CELL DISTRIBUTION WIDTH 14.6 % 12.9-16.9 N (test code = RDW) PLATELET COUNT (test code = 210 x10 3/uL 150-440 N PLT) MEAN PLATELET VOLUME (test code 10.9 fL 8.9-12.4 N = MPV) NEUTROPHIL % (test code = NT%) 78.8 % 42.2-75.2 H LYMPHOCYTE % (test code = LY%) 6.4 % 20.5-51.1 L MONOCYTE % (test code = MO%) 12.3 % 1.7-9.3 H EOSINOPHIL % (test code = EO%) 1.6 % 0.0-7.0 N BASOPHIL % (test code = BA%) 0.4 % 0-2.5 N NEUTROPHIL # (test code = NT#) 8.69 x10 3/uL 1.80-7.70 H LYMPHOCYTE # (test code = LY#) 0.71 x10 3/uL 1.00-4.80 L MONOCYTE # (test code = MO#) 1.35 x10 3/uL 0.00-0.80 H EOSINOPHIL # (test code = EO#) 0.18 x10 3/uL 0.00-0.45 N BASOPHIL # (test code = BA#) 0.04 x10 3/uL 0.0-0.20 N [id number] 20:14:00 Test Item Value Reference Range Interpretation Comments GLUBED (test code = GLUBED) 219 MG/DL 70-105 H [id number] 16:56:00 Test Item Value Reference Range Interpretation Comments GLUBED (test code = GLUBED) 214 MG/DL 70-105 H [id number] 13:08:00 Test Item Value Reference Range Interpretation Comments GLUBED (test code = GLUBED) 219 MG/DL 70-105 H [id number] 10:08:00 Test Item Value Reference Range Interpretation Comments GLUBED (test code = GLUBED) 228 MG/DL 70-105 H - XR CHEST 1 [id number] 08:15:00 [facility] 1950 Sex: FPatient Name: KATELIN MUNSON Unit No: [id number] EXAMS: CPT CODE: [id number] XR CHEST 1 V 02199 CLINICAL HISTORY: pulmonary edema. LOCATION: A1 FINDINGS: Comparison is made with a previous studydated May 09, 2021. A portable AP view of the chest is dated 05/10/2021 at 3:15 AM. There is stable mild cardiomegaly. No change in tubes or lines. There is pulmonary vascular congestion and moderate diffuse interstitial prominence with moderate bibasilar infiltrates. No definite pleural effusions.No acute skeletal or soft tissue abnormalities. IMPRESSION: 1. No significant change. at 0815 Reported and signed by: RA CASTRO M.D. CC: Florentino Jenkins MD; Ad Brand MD Technologist: Margaret Gaffney Fluoro Time: DAP(Gy m2): Air Kerma (mGy): Trscr Dt/Tm: 05/10/2021 (0815) by:[email or web address] Printed Date/Time: 05/10/2021(0818) Name: KATELIN MUNSON [facility] Phys: Ad Kang MD [address] [facility] 1950 Age: 70 Sex: F [place], [place] [address] [place] No: [id number] Loc: P.[id number] 1 Exam Date: 05/10/2021 Status: ADM IN PH: FAX: PAGE 1 Signed ReportBASIC METABOLIC [id number] 04:47:00 Test Item Value Reference Range Interpretation Comments SODIUM (test code = 143 mmol/L 136-145 N Please n ote: New NA) Reference Range Oct 2020 POTASSIUM (test code 4.4 mmol/L 3.5-5.1 N = K) CHLORIDE (test code = 109 mmol/L 98-107 H Please note: New CL) Reference Range Oct 2020 CARBON DIOXIDE (test 29 mmol/L 20-31 N Please note: New code = CO2) Reference Range Oct 2020 GLUCOSE (test code = 131 mg/dL 74-106 H Please note: New GLU) Reference Range Oct 2020 BLOOD UREA NITROGEN 60 mg/dL 9-23 H Please n ote: New (test code = BUN) Reference Range Oct 2020 GLOMERULAR FILTRATION 25 mL/min >60 L Units are RATE (test code = mL/min/1.7 3m2 The GFR) estimated glome rular filtration rate is computed usingp atient race, age (>18) , sex, and serum creat inine. If anyof the ne eded data elements a re missing the Lab oratory cannot compute an estimation of t he glomerular filt ration rate. CREATININE (test code 2.10 mg/dL 0.55-1.02 H Please note: New = CREAT) Reference Range Oct 2020 CALCIUM (test code = 9.2 mg/dL 8.7-10.4 N Please note: New CA) Reference Range Oct 2020 [id number] 04:47:00 Test Item Value Reference Range Interpretation Comments PHOSPHOROUS (test code 3.4 mg/dL 2.4-5.1 N Pleas e note: New = PHOS) Reference Range Oct 2020 [id number] 04:47:00 Test Item Value Reference Range Interpretation Comments MAGNESIUM (test code = 2.1 mg/dL 1.6-2.6 N Pleas e note: New MAG) Reference Range Oct 2020 CBC W/AUTO [id number] 04:30:00 Test Item Value Reference Range Interpretation Comments WHITE BLOOD CELL (test code = 12.5 x10 3/uL 4.8-10.8 H WBC) RED BLOOD CELL (test code = 3.14 x10 6/uL 4.20-5.40 L RBC) HEMOGLOBIN (test code = HGB) 10.0 g/dL 12.0-16.0 L HEMATOCRIT (test code = HCT) 32.0 % 37.0-47.0 L MEAN CELL VOLUME (test code = 101.9 fL 81.0-99.0 H MCV) MEAN CELL HGB (test code = 31.8 pg 27-31 H MCH) MEAN CELL HGB CONCENTRATION 31.3 G/DL 33-36.5 L (test code = MCHC) RED CELL DISTRIBUTION WIDTH 15.1 % 12.9-16.9 N (test code = RDW) PLATELET COUNT (test code = 208 x10 3/uL 150-440 N PLT) MEAN PLATELET VOLUME (test 11.1 fL 8.9-12.4 N code = MPV) NEUTROPHIL % (test code = NT%) 85.1 % 42.2-75.2 H LYMPHOCYTE % (test code = LY%) 3.5 % 20.5-51.1 L MONOCYTE % (test code = MO%) 10.6 % 1.7-9.3 H EOSINOPHIL % (test code = EO%) 0.2 % 0.0-7.0 N BASOPHIL % (test code = BA%) 0.2 % 0-2.5 N NEUTROPHIL # (test code = NT#) 10.62 x10 3/uL 1.80-7.70 H LYMPHOCYTE # (test code = LY#) 0.44 x10 3/uL 1.00-4.80 L MONOCYTE # (test code = MO#) 1.33 x10 3/uL 0.00-0.80 H EOSINOPHIL # (test code = EO#) 0.02 x10 3/uL 0.00-0.45 N BASOPHIL # (test code = BA#) 0.03 x10 3/uL 0.0-0.20 N BASIC METABOLIC [id number] 21:50:00 Test Item Value Reference Range Interpretation Comments SODIUM (test code = 140 mmol/L 136-145 N Please n ote: New NA) Reference Range Oct 2020 POTASSIUM (test code 5.1 mmol/L 3.5-5.1 N = K) CHLORIDE (test code = 106 mmol/L 98-107 N Please note: New CL) Reference Range Oct 2020 CARBON DIOXIDE (test 27 mmol/L 20-31 N Please note: New code = CO2) Reference Range Oct 2020 GLUCOSE (test code = 262 mg/dL 74-106 H Please note: New GLU) Reference Range Oct 2020 BLOOD UREA NITROGEN 55 mg/dL 9-23 H Please n ote: New (test code = BUN) Reference Range Oct 2020 GLOMERULAR FILTRATION 24 mL/min >60 L Units are RATE (test code = mL/min/1.7 3m2 The GFR) estimated glome rular filtration rate is computed usingp atient race, age (>18) , sex, and serum creat inine. If anyof the ne eded data elements a re missing the Lab oratory cannot compute an estimation of t he glomerular filt ration rate. CREATININE (test code 2.20 mg/dL 0.55-1.02 H Please note: New = CREAT) Reference Range Oct 2020 CALCIUM (test code = 8.5 mg/dL 8.7-10.4 L Please note: New CA) Reference Range Oct 2020 [id number] 21:50:00 Test Item Value Reference Range Interpretation Comments PHOSPHOROUS (test code 3.3 mg/dL 2.4-5.1 N Pleas e note: New = PHOS) Reference Range Oct 2020 [id number] 21:50:00 Test Item Value Reference Range Interpretation Comments MAGNESIUM (test code = 2.1 mg/dL 1.6-2.6 N Pleas e note: New MAG) Reference Range Oct 2020 BASIC METABOLIC [id number] 21:48:00 Test Item Value Reference Range Interpretation Comments SODIUM (test code = 140 mmol/L 136-145 N Please n ote: New NA) Reference Range Oct 2020 POTASSIUM (test code 5.1 mmol/L 3.5-5.1 N = K) CHLORIDE (test code = 106 mmol/L 98-107 N Please note: New CL) Reference Range Oct 2020 CARBON DIOXIDE (test 27 mmol/L 20-31 N Please note: New code = CO2) Reference Range Oct 2020 GLUCOSE (test code = 262 mg/dL 74-106 H Please note: New GLU) Reference Range Oct 2020 BLOOD UREA NITROGEN mg/dL 9-23 (test code = BUN) GLOMERULAR FILTRATION 24 mL/min >60 L Units are RATE (test code = mL/min/1.7 3m2 The GFR) estimated glome rular filtration rate is computed usingp atient race, age (>18) , sex, and serum creat inine. If anyof the ne eded data elements a re missing the Lab oratory cannot compute an estimation of t he glomerular filt ration rate. CREATININE (test code 2.20 mg/dL 0.55-1.02 H Please note: New = CREAT) Reference Range Oct 2020 CALCIUM (test code = 8.5 mg/dL 8.7-10.4 L Please note: New CA) Reference Range Oct 2020 [id number] 21:48:00 Test Item Value Reference Range Interpretation Comments PHOSPHOROUS (test code = PHOS) mg/dL 2.4-5.1 [id number] 21:48:00 Test Item Value Reference Range Interpretation Comments MAGNESIUM (test code = MAG) mg/dL 1.6-2.6 BASIC METABOLIC [id number] 21:43:00 Test Item Value Reference Range Interpretation Comments SODIUM (test code = 140 mmol/L 136-145 N Please n ote: New NA) Reference Range Oct 2020 POTASSIUM (test code = mmol/L 3.5-5.1 K) CHLORIDE (test code = 106 mmol/L 98-107 N Please note: New CL) Reference Range Oct 2020 CARBON DIOXIDE (test 27 mmol/L 20-31 N Please note: New code = CO2) Reference Range Oct 2020 GLUCOSE (test code = mg/dL 74-106 GLU) BLOOD UREA NITROGEN mg/dL 9-23 (test code = BUN) GLOMERULAR FILTRATION mL/min >60 RATE (test code = GFR) CREATININE (test code mg/dL 0.55-1.02 = CREAT) CALCIUM (test code = mg/dL 8.7-10.4 CA) [id number] 21:43:00 Test Item Value Reference Range Interpretation Comments PHOSPHOROUS (test code = PHOS) mg/dL 2.4-5.1 [id number] 21:43:00 Test Item Value Reference Range Interpretation Comments MAGNESIUM (test code = MAG) mg/dL 1.6-2.6 BASIC METABOLIC [id number] 21:42:00 Test Item Value Reference Range Interpretation Comments SODIUM (test code = 140 mmol/L 136-145 N Please n ote: New NA) Reference Range Oct 2020 POTASSIUM (test code = mmol/L 3.5-5.1 K) CHLORIDE (test code = 106 mmol/L 98-107 N Please note: New CL) Reference Range Oct 2020 CARBON DIOXIDE (test mmol/L 20-31 code = CO2) GLUCOSE (test code = mg/dL 74-106 GLU) BLOOD UREA NITROGEN mg/dL 9-23 (test code = BUN) GLOMERULAR FILTRATION mL/min >60 RATE (test code = GFR) CREATININE (test code mg/dL 0.55-1.02 = CREAT) CALCIUM (test code = mg/dL 8.7-10.4 CA) [id number] 21:42:00 Test Item Value Reference Range Interpretation Comments PHOSPHOROUS (test code = PHOS) mg/dL 2.4-5.1 [id number] 21:42:00 Test Item Value Reference Range Interpretation Comments MAGNESIUM (test code = MAG) mg/dL 1.6-2.6 - XR CHEST 1 [id number] 20:34:00 [facility] 1950 Sex: FPatient Name: KATELIN MUNSON Unit No: [id number] EXAMS: CPT CODE: [id number] XR CHEST 1 V 20955 Examination: One view chest x-ray Location code: H60 Comparison: 05/09/2021 Discussion: Clinical history is remarkable for PICC line placement. Right-sided PICC line is identified with its tip in thesuperior vena cava. Heart is slightly enlarged. Changes of pulmonary vascular congestion/interstitial edema essentially unchanged. Small pleural effusions are likely as well. Left subclavian pacemaker leads are identified with their tips in the right atrium and right ventricle respectively. Impression: 1. Findings consistent with pulmonary vascular congestion/mild interstitial edema. 2. Small pleural effusions. at 2033 Reported and signedby: Miguel Spence M.D. CC: Florentino Jenkins MD; Misael Almaguer MD Technologist: Davina Barajas Time: DAP (Gy m2): Air Kerma (mGy): Trscr Dt/Tm: 05/09/2021 (2033) by:[email or web address] Printed Date/Time: 05/09/2021 (2049) Name: KATELIN MUNSON [facility] Phys: Misael Rabago [address] : 1950 Age: 70 Sex: [place] [address] Loc: P.0216 1 ExamDate: 05/09/2021 Status: ADM IN PH: FAX: PAGE 1 Signed [id number] 20:16:00 Test Item Value Reference Range Interpretation Comments GLUBED (test code = GLUBED) 276 MG/DL 70-105 H [id number] 15:55:00 Test Item Value Reference Range Interpretation Comments GLUBED (test code = GLUBED) 222 MG/DL 70-105 H Covid 19 InHouse [id number] 12:01:00 Test Item Value Reference Range Interpretation Comments Covid 19 Negative Negative A negative resu lt does not InHouse NTX preclude the SA RS-COV-2 (test code = viralinfection and should not be [id number]) used as the so le basis forpatient leigh gement decisions. Negative result s must becombined with clinical o bservations, patient history , andepidemiologi leonardo information. Viral levels in clinicalsamples below the detec tion limit of the assay could jose d tonegative results. This t est was performed using the [employer] SmartTM COVID-19 PCRassay. This test was developed and i ts performancechar acteristics were determined by Sara tate [facility]. Thi s test has notbeen FDA aurora ared or approved. This test is au thorized by theFDA under Em ergency Use Authorization(E UA). The EUA willremain in e ffect unless it is terminated o r revoked by FDA . Testing marbella eters have not been validated for screeningasympt omatic patients. This test was v alidated according to th e FDA's guidancedocumen t "Policy for Diagnostics uli ting in LaboratoriesCer tified to Perform High Complexity Testing under CLIA". First test? NoEmployed in Healthcare? NoSymptomatic as defined by CDC? NoHospitalized due to COVID? NoIn ICU due to COVID? NoResident in a congregate care setting? No? NoAge at collection: [id number] 11:58:00 Test Item Value Reference Range Interpretation Comments GLUBED (test code = GLUBED) 255 MG/DL 70-105 H - XR CHEST 1 [id number] 09:12:00 [facility] : 1950 Sex: FPatient Name: KATELIN MUNSON Unit No: [id number] EXAMS: CPT CODE: [id number] XR CHEST 1 V 08807 CLINICAL HISTORY: SOB. LOCATION: A1 FINDINGS: Comparison is made with a previous study dated May 09, 2021. A portable AP view of the chest is dated 05/09/2021 at 8:31 AM. There is stable mild cardiomegaly. Cardiac conduction device overlies the left chest. There is pulmonary vascular congestion and diffuse interstitial prominence with mild to moderate infiltrate at the bilateral lower lungs. No definite pleural effusions. No acute skeletal or soft tissue abnormalities. IMPRESSION: 1. No significant change. at 0912 Reported and signed by: RA CASTRO M.D. CC: Florentino Jenkins MD; Ad Brand MD Technologist: Taylor Barajas Time: DAP (Gy m2): Air Kerma (mGy): Trscr Dt/Tm: 05/09/2021 (0912) by:[email or web address] Printed Date/Time: 05/09/2021 (15) Name: KATELIN MUNSON [facility] Phys: Ad Kang MD [address] : 1950 Age: 70 Sex: F [place] [id number] Loc: P.0216 1 Exam Date: 05/09/2021 Status: ADM IN PH: FAX: PAGE 1 Signed Report- XR CHEST 1 [id number] 07:48:00 [facility] : 1950 Sex: FPatient Name: KATELIN MUNSON Unit No: [id number] EXAMS: CPT CODE: [id number] XR CHEST 1 V 02746 CHEST, SINGLE VIEW DICTATION LOCATION A1 HISTORY: Pacemaker placement. A single view of the chest a 3:03 AM was compared to prior exam from May 08, 2021. FINDINGS: Mild cardiomegaly and central pulmonary vascular congestion are present. The lungs are clear. No pneumothorax is seen. Left chest pacing device and cardiac leads appear to be in good position. IMPRESSION: Mild cardiomegaly and central pulmonary vascular congestion. No acute findings otherwise. at 0748 Reported and signed by: Eddie Muniz Jr, MD CC: Gerhard Zavala MD; Florentino Jenkins MD Technologist: Margaret Gaffney Fluoro Time: DAP (Gy m2): Air Kerma (mGy): Trscr Dt/Tm: 05/09/2021 (0748) by:Viky Printed Date/Time: 05/09/2021 (0751) Name: HILL,KATELIN [facility] Phys: OLIVERIO ZavalaGerhard [address] : 1950 Age: 70 Sex: F [place] [address] [facility] No: [id number] Loc: P.0216 1 Exam Date: 05/09/2021 Status: ADMIN PH: FAX: PAGE 1 Signed [id number] 07:24:00 Test Item Value Reference Range Interpretation Comments GLUBED (test code = GLUBED) 213 MG/DL 70-105 H PROTHROMBIN [id number] 05:33:00 Test Item Value Reference Range Interpretation Comments PROTHROMBIN TIME 12.7 SECONDS 10.3-12.9 N PATIENT (test code = PTP) INTERNATIONAL 1.11 INR UNIT 0.9-1.11 N The INR is us eful only NORMAL RATIO (test for monit oring code = INR) anticoagulant therapy.It may be unreliable in t he initial phase o f antigoagulation and in unstable patien ts. Indication for Anticoagulation Recommended INR 1. Prevention of v enous thomboembolism 2.0-3.0in high- risk patients; treat ment of venousthrombosi s and pulmonary embol ism aftera course o f heparin; preven tion of systemicembolis m in a variety of cond itions, including atria l fibrillation an d prothetic tissu e heart valves, 2. Pros thetic mechanical hear t valves; 2.5-3.5recurren t systemic emboli sm. THROMBOPLASTIN TIME [id number] 05:33:00 Test Item Value Reference Interpretation Comments Range THROMBOPLASTIN TIME 21.2 SECONDS 23.8-34.8 L NO CLOT PARTIAL (test code DETECTEDI NTERPRETATIVE = PTT) DATA:Therapeuti c range: Unfractionated heparin:55 - 80 seconds Argatroban:1.5 to 3 times the baseline PT T HGBA1C - GLYCOSYLATED [id number] 05:31:00 Test Item Value Reference Range Interpretation Comments GLYCOSYLATED HEMOGLOBIN 7.7 % <5.7 H Diab etic >/= (HA1C) (test code = 6.5%Pred iabetes GLYHGB) 5.7-6.4%Normal < 5.7% COMPREHENSIVE METABOLIC [id number] 04:50:00 Test Item Value Reference Range Interpretation Comments SODIUM (test code = 144 mmol/L 136-145 N Please n ote: New NA) Reference Range Oct 2020 POTASSIUM (test code 4.6 mmol/L 3.5-5.1 N = K) CHLORIDE (test code = 111 mmol/L 98-107 H Please note: New CL) Reference Range Oct 2020 CARBON DIOXIDE (test 27 mmol/L 20-31 N Please note: New code = CO2) Reference Range Oct 2020 GLUCOSE (test code = 201 mg/dL 74-106 H Please note: New GLU) Reference Range Oct 2020 BLOOD UREA NITROGEN 50 mg/dL 9-23 H Please n ote: New (test code = BUN) Reference Range Oct 2020 GLOMERULAR FILTRATION 24 mL/min >60 L Units are RATE (test code = mL/min/1.7 3m2 The GFR) estimated glome rular filtration rate is computed usingp atient race, age (>18) , sex, and serum creat inine. If anyof the ne eded data elements a re missing the Lab oratory cannot compute an estimation of t he glomerular filt ration rate. CREATININE (test code 2.20 mg/dL 0.55-1.02 H Please note: New = CREAT) Reference Range Oct 2020 TOTAL PROTEIN (test 5.9 g/dL 5.7-8.2 N Please n ote: New code = PROT) Reference Range Oct 2020 ALBUMIN (test code = 3.6 g/dL 3.2-4.8 N Please note: New ALB) Reference Range Oct 2020 CALCIUM (test code = 8.9 mg/dL 8.7-10.4 N Please note: New CA) Reference Range Oct 2020 BILIRUBIN TOTAL (test 0.5 mg/dL 0.3-1.2 N Please note: New code = BILT) Reference Range Oct 2020 SGOT/AST (test code = 23 U/L <34 N Please note: New AST) Reference Range Oct 2020 SGPT/ALT (test code = 34 U/L 10-49 N Please note: New ALT) Reference Range Oct 2020 ALKALINE PHOSPHATASE 97 U/L 46-116 N Please note: New (test code = ALKP) Reference Range Oct 2020 LIPID PROFILE (CORONARY RISK)2021-05-09 04:50:00 Test Item Value Reference Range Interpretation Comments TRIGLYCERIDES (test 126 mg/dL <150 N Please n ote: New code = TRIG) Reference Range Oct 2020 CHOLESTEROL (test code 118 mg/dL <200 N Pleas e note: New = CHOL) Reference Range Oct 2020 HDL CHOLESTEROL (test 28 mg/dL <60 N Please note: New code = HDL) Reference Range Oct 2020 LIPOPROTEIN LDL (test 68 mg/dL <100 N INTERP RETATIVE code = LDLC) DATA:LDL Choles terol: Reference RangesOptimal: <100 mg/dLNear Optim al: 100 -129 mg/dLBorde rline High: 130 - 159 mg/dLHigh: 160 - 189 mg/dLVery High: = or > 190 mg/dL CORONARY RISK FACTOR 4.21 CHOL/ HDL RISK MALE: (test code = RISK) 1/2 AVG 3 .43 FEMALE: 1/2 AVG 3.27 AV G 4.97 AVG 4.44 2X AVG 9.55 2X AVG 7.05 3X AVG 23.39 3X AVG 11.04~~~~~~~~~~ ~~~~~~~ ~~~~~~~~~~~~~~~ ~~~~~~~ ~~~~~~~~~~~~~~~ ~~~~~~N [facility] stefania Education (NVEP ) Guidelines:~~~~ ~~~~~~~ ~~~~~~~~~~~~~~~ ~~~~~~~ ~~~~~~~~~~~~~~~ ~~~~~~~ ~~~~~ HDL Cholesterol<4 0mg/dL: HDL Cholesterol (Major risk factor for CHD)>60mg/dL: H DL Cholesterol (Ne gative risk factor for CHD)40-59mg/dL: Borderline Risk LDL Cholesterol<1 00mg/dL : Desirable LDL -C [id number] 0-159mg /dL: Borderline High Risk LDL-C [id number] 0-189mg /dL: High risk LDL-C concentration H DL-LDL Cholesterol is affected by a n umber of factors such as smoking, age an d sex.~~~~~~~~~~~ ~~~~~~~ ~~~~~~~~~~~~~~~ ~~~~~~~ ~~~~~~~~~~~~~~~ ~~~~~ [id number] 04:50:00 Test Item Value Reference Range Interpretation Comments PHOSPHOROUS (test code 3.9 mg/dL 2.4-5.1 N Pleas e note: New = PHOS) Reference Range Oct 2020 [id number] 04:50:00 Test Item Value Reference Range Interpretation Comments MAGNESIUM (test code = 2.5 mg/dL 1.6-2.6 N Pleas e note: New MAG) Reference Range Oct 2020 THYROID STIMULATING [id number] 04:50:00 Test Item Value Reference Range Interpretation Comments THYROID STIMULATING 1.64 mIU/mL 0.55-4.78 Please n ote: New HORMONE (test code = Referen ce Range Oct TSH) 2020 CBC W/AUTO [id number] 04:28:00 Test Item Value Reference Range Interpretation Comments WHITE BLOOD CELL (test code = 9.7 x10 3/uL 4.8-10.8 N WBC) RED BLOOD CELL (test code = 3.35 x10 6/uL 4.20-5.40 L RBC) HEMOGLOBIN (test code = HGB) 10.6 g/dL 12.0-16.0 L HEMATOCRIT (test code = HCT) 36.6 % 37.0-47.0 L MEAN CELL VOLUME (test code = 109.3 fL 81.0-99.0 H MCV) MEAN CELL HGB (test code = MCH) 31.6 pg 27-31 H MEAN CELL HGB CONCENTRATION 29.0 G/DL 33-36.5 L (test code = MCHC) RED CELL DISTRIBUTION WIDTH 15.1 % 12.9-16.9 N (test code = RDW) PLATELET COUNT (test code = 201 x10 3/uL 150-440 N PLT) MEAN PLATELET VOLUME (test code 11.0 fL 8.9-12.4 N = MPV) NEUTROPHIL % (test code = NT%) 80.8 % 42.2-75.2 H LYMPHOCYTE % (test code = LY%) 5.1 % 20.5-51.1 L MONOCYTE % (test code = MO%) 11.3 % 1.7-9.3 H EOSINOPHIL % (test code = EO%) 2.0 % 0.0-7.0 N BASOPHIL % (test code = BA%) 0.6 % 0-2.5 N NEUTROPHIL # (test code = NT#) 7.83 x10 3/uL 1.80-7.70 H LYMPHOCYTE # (test code = LY#) 0.49 x10 3/uL 1.00-4.80 L MONOCYTE # (test code = MO#) 1.09 x10 3/uL 0.00-0.80 H EOSINOPHIL # (test code = EO#) 0.19 x10 3/uL 0.00-0.45 N BASOPHIL # (test code = BA#) 0.06 x10 3/uL 0.0-0.20 N [id number] 19:34:00 Test Item Value Reference Range Interpretation Comments GLUBED (test code = GLUBED) 230 MG/DL 70-105 H [id number] 17:43:00 Test Item Value Reference Range Interpretation Comments GLUBED (test code = GLUBED) 251 MG/DL 70-105 H LACTIC [id number] 15:46:00 Test Item Value Reference Range Interpretation Comments LACTIC ACID (test code = LACT) 1.20 mmol/L 0.5-2.0 N COMPREHENSIVE METABOLIC [id number] 15:33:00 Test Item Value Reference Range Interpretation Comments SODIUM (test code = 142 mmol/L 136-145 N Please n ote: New NA) Reference Range Oct 2020 POTASSIUM (test code 4.7 mmol/L 3.5-5.1 N = K) CHLORIDE (test code = 106 mmol/L 98-107 N Please note: New CL) Reference Range Oct 2020 CARBON DIOXIDE (test 29 mmol/L 20-31 N Please note: New code = CO2) Reference Range Oct 2020 GLUCOSE (test code = 309 mg/dL 74-106 H Please note: New GLU) Reference Range Oct 2020 BLOOD UREA NITROGEN 63 mg/dL 9-23 H Please n ote: New (test code = BUN) Reference Range Oct 2020 GLOMERULAR FILTRATION 16 mL/min >60 L Units are RATE (test code = mL/min/1.7 3m2 The GFR) estimated glome rular filtration rate is computed usingp atient race, age (>18) , sex, and serum creat inine. If anyof the ne eded data elements a re missing the Lab oratory cannot compute an estimation of t he glomerular filt ration rate. CREATININE (test code 3.00 mg/dL 0.55-1.02 H Please note: New = CREAT) Reference Range Oct 2020 TOTAL PROTEIN (test 6.2 g/dL 5.7-8.2 N Please n ote: New code = PROT) Reference Range Oct 2020 ALBUMIN (test code = 4.1 g/dL 3.2-4.8 N Please note: New ALB) Reference Range Oct 2020 CALCIUM (test code = 9.3 mg/dL 8.7-10.4 N Please note: New CA) Reference Range Oct 2020 BILIRUBIN TOTAL (test 0.4 mg/dL 0.3-1.2 N Please note: New code = BILT) Reference Range Oct 2020 SGOT/AST (test code = 33 U/L <34 N Please note: New AST) Reference Range Oct 2020 SGPT/ALT (test code = 44 U/L 10-49 N Please note: New ALT) Reference Range Oct 2020 ALKALINE PHOSPHATASE 113 U/L 46-116 N Please note: New (test code = ALKP) Reference Range Oct 2020 LIPID PROFILE (CORONARY RISK)2021-05-08 15:33:00 Test Item Value Reference Range Interpretation Comments TRIGLYCERIDES (test 106 mg/dL <150 N Please n ote: New code = TRIG) Reference Range Oct 2020 CHOLESTEROL (test code 140 mg/dL <200 N Pleas e note: New = CHOL) Reference Range Oct 2020 HDL CHOLESTEROL (test 36 mg/dL <60 N Please note: New code = HDL) Reference Range Oct 2020 LIPOPROTEIN LDL (test 87 mg/dL <100 N INTERP RETATIVE code = LDLC) DATA:LDL Choles terol: Reference RangesOptimal: <100 mg/dLNear Optim al: 100 -129 mg/dLBorde rline High: 130 - 159 mg/dLHigh: 160 - 189 mg/dLVery High: = or > 190 mg/dL CORONARY RISK FACTOR 3.89 CHOL/H DL RISK MALE: (test code = RISK) 1/2 AVG 3 .43 FEMALE: 1/2 AVG 3.27 AV G 4.97 AVG 4.44 2X AVG 9.55 2X AVG 7.05 3X AVG 23.39 3X AVG 11.04~~~~~~~~~~ ~~~~~~~ ~~~~~~~~~~~~~~~ ~~~~~~~ ~~~~~~~~~~~~~~~ ~~~~~~N [facility] [employer] [employer] ([employer] ) Guidelines:~~~~ ~~~~~~~ ~~~~~~~~~~~~~~~ ~~~~~~~ ~~~~~~~~~~~~~~~ ~~~~~~~ ~~~~~ HDL Cholesterol<4 0mg/dL: HDL Cholesterol (Major risk factor for CHD)>60mg/dL: H DL Cholesterol (Ne gative risk factor for CHD)40-59mg/dL: Borderline Risk LDL Cholesterol<1 00mg/dL : Desirable LDL -C [id number] 0-159mg /dL: Borderline High Risk LDL-C rutlqbgpcxmye88 0-189mg /dL: High risk LDL-C concentration H DL-LDL Cholesterol is affected by a n umber of factors such as smoking, age an d sex.~~~~~~~~~~~ ~~~~~~~ ~~~~~~~~~~~~~~~ ~~~~~~~ ~~~~~~~~~~~~~~~ ~~~~~ [id number] 15:33:00 Test Item Value Reference Range Interpretation Comments PHOSPHOROUS (test code 4.6 mg/dL 2.4-5.1 N Pleas e note: New = PHOS) Reference Range Oct 2020 [id number] 15:33:00 Test Item Value Reference Range Interpretation Comments MAGNESIUM (test code = 2.5 mg/dL 1.6-2.6 N Pleas e note: New MAG) Reference Range Oct 2020 THYROID STIMULATING [id number] 15:33:00 Test Item Value Reference Range Interpretation Comments THYROID STIMULATING 3.05 mIU/mL 0.55-4.78 N Please n ote: New HORMONE (test code = Referen ce Range Oct TSH) 2020 B-TYPE NATRIURETIC [id number] 15:31:00 Test Item Value Reference Range Interpretation Comments B-TYPE NATRIURETIC PEPTIDE (test 380 pg/mL <100 H code = BNP) COMPREHENSIVE METABOLIC [id number] 15:30:00 Test Item Value Reference Range Interpretation Comments SODIUM (test code = NA) 142 mmol/L 136-145 N Plea se note: New Reference Range Oct 2020 POTASSIUM (test code = 4.7 mmol/L 3.5-5.1 N K) CHLORIDE (test code = 106 mmol/L 98-107 N Please note: New CL) Reference Range Oct 2020 CARBON DIOXIDE (test 29 mmol/L 20-31 N Please note: New code = CO2) Reference Range Oct 2020 GLUCOSE (test code = 309 mg/dL 74-106 H Please note: New GLU) Reference Range Oct 2020 BLOOD UREA NITROGEN mg/dL 9-23 (test code = BUN) GLOMERULAR FILTRATION mL/min >60 RATE (test code = GFR) CREATININE (test code = mg/dL 0.55-1.02 CREAT) TOTAL PROTEIN (test 6.2 g/dL 5.7-8.2 N Please n ote: New code = PROT) Reference Range Oct 2020 ALBUMIN (test code = 4.1 g/dL 3.2-4.8 N Please note: New ALB) Reference Range Oct 2020 CALCIUM (test code = 9.3 mg/dL 8.7-10.4 N Please note: New CA) Reference Range Oct 2020 BILIRUBIN TOTAL (test 0.4 mg/dL 0.3-1.2 N Please note: New code = BILT) Reference Range Oct 2020 SGOT/AST (test code = 33 U/L <34 N Please note: New AST) Reference Range Oct 2020 SGPT/ALT (test code = 44 U/L 10-49 N Please note: New ALT) Reference Range Oct 2020 ALKALINE PHOSPHATASE 113 U/L 46-116 N Please note: New (test code = ALKP) Reference Range Oct 2020 LIPID PROFILE (CORONARY RISK)[id number] 15:30:00 Test Item Value Reference Range Interpretation Comments TRIGLYCERIDES (test 106 mg/dL <150 N Please n ote: New code = TRIG) Reference Range Oct 2020 CHOLESTEROL (test code 140 mg/dL <200 N Pleas e note: New = CHOL) Reference Range Oct 2020 HDL CHOLESTEROL (test 36 mg/dL <60 N Please note: New code = HDL) Reference Range Oct 2020 LIPOPROTEIN LDL (test 87 mg/dL <100 N INTERP RETATIVE code = LDLC) DATA:LDL Choles terol: Reference RangesOptimal: <100 mg/dLNear Optim al: 100 -129 mg/dLBorde rline High: 130 - 159 mg/dLHigh: 160 - 189 mg/dLVery High: = or > 190 mg/dL CORONARY RISK FACTOR 3.89 CHOL/H DL RISK MALE: (test code = RISK) 1/2 AVG 3 .43 FEMALE: 1/2 AVG 3.27 AV G 4.97 AVG 4.44 2X AVG 9.55 2X AVG 7.05 3X AVG 23.39 3X AVG 11.04~~~~~~~~~~ ~~~~~~~ ~~~~~~~~~~~~~~~ ~~~~~~~ ~~~~~~~~~~~~~~~ ~~~~~~[facility] Cholest stefania Education (NCEP ) Guidelines:~~~~ ~~~~~~~ ~~~~~~~~~~~~~~~ ~~~~~~~ ~~~~~~~~~~~~~~~ ~~~~~~~ ~~~~~ HDL Cholesterol<4 0mg/dL: HDL Cholesterol (Major risk factor for CHD)>60mg/dL: H DL Cholesterol (Ne gative risk factor for CHD)40-59mg/dL: Borderline Risk LDL Cholesterol<1 00mg/dL : Desirable LDL -C astzupcchrsct52 0-159mg /dL: Borderline High Risk LDL-C ibcjuotnldduy50 0-189mg /dL: High risk LDL-C concentration H DL-LDL Cholesterol is affected by a n umber of factors such as smoking, age an d sex.~~~~~~~~~~~ ~~~~~~~ ~~~~~~~~~~~~~~~ ~~~~~~~ ~~~~~~~~~~~~~~~ ~~~~~ [id number] 15:30:00 Test Item Value Reference Range Interpretation Comments PHOSPHOROUS (test code 4.6 mg/dL 2.4-5.1 N Pleas e note: New = PHOS) Reference Range Oct 2020 [id number] 15:30:00 Test Item Value Reference Range Interpretation Comments MAGNESIUM (test code = 2.5 mg/dL 1.6-2.6 N Pleas e note: New MAG) Reference Range Oct 2020 THYROID STIMULATING [id number] 15:30:00 Test Item Value Reference Range Interpretation Comments THYROID STIMULATING HORMONE (test mIU/mL 0.55-4.78 code = TSH) COVID 19 Asymptomatic IH [id number] 15:02:00 Test Item Value Reference Range Interpretation Comments COVID 19 NEGATIVE NEGATIVE Negative result s, from Asymptomatic IH AG patients with symptom (test code = onset beyondfiv e days, COVNONPUIAG) should be treat ed as presumptive and confirmationwit h a molecular assay , if necessary for patientmanageme nt, may be performed. Nega tive results do not ruleout COVID-19 and sh ould not be used as the sole basis fortreatment or patient management deci sions, includinginfect ion control decisio ns. Negative result s should beconsidered in the context of a pa tient's recent exposure s,history and the presenc e of clinical signs and symptomsconsist ent with COVID-19. THROMBOPLASTIN TIME [id number] 14:43:00 Test Item Value Reference Range Interpretation Comments THROMBOPLASTIN TIME 30.1 SECONDS 23.8-34.8 N INTERPRE TATIVE PARTIAL (test code = DATA: erapeutic PTT) range: Unfractionated heparin:55 - 80 seconds Argatroban:1.5 to 3 times the basel ine PTT CBC W/AUTO [id number] 14:34:00 Test Item Value Reference Range Interpretation Comments WHITE BLOOD CELL (test code = 9.5 x10 3/uL 4.8-10.8 N WBC) RED BLOOD CELL (test code = 3.73 x10 6/uL 4.20-5.40 L RBC) HEMOGLOBIN (test code = HGB) 11.8 g/dL 12.0-16.0 L HEMATOCRIT (test code = HCT) 37.6 % 37.0-47.0 N MEAN CELL VOLUME (test code = 100.8 fL 81.0-99.0 H MCV) MEAN CELL HGB (test code = MCH) 31.6 pg 27-31 H MEAN CELL HGB CONCENTRATION 31.4 G/DL 33-36.5 L (test code = MCHC) RED CELL DISTRIBUTION WIDTH 15.0 % 12.9-16.9 N (test code = RDW) PLATELET COUNT (test code = 246 x10 3/uL 150-440 N PLT) MEAN PLATELET VOLUME (test code 11.1 fL 8.9-12.4 N = MPV) NEUTROPHIL % (test code = NT%) 84.2 % 42.2-75.2 H LYMPHOCYTE % (test code = LY%) 7.0 % 20.5-51.1 L MONOCYTE % (test code = MO%) 8.0 % 1.7-9.3 N EOSINOPHIL % (test code = EO%) 0.2 % 0.0-7.0 N BASOPHIL % (test code = BA%) 0.3 % 0-2.5 N NEUTROPHIL # (test code = NT#) 8.00 x10 3/uL 1.80-7.70 H LYMPHOCYTE # (test code = LY#) 0.67 x10 3/uL 1.00-4.80 L MONOCYTE # (test code = MO#) 0.76 x10 3/uL 0.00-0.80 N EOSINOPHIL # (test code = EO#) 0.02 x10 3/uL 0.00-0.45 N BASOPHIL # (test code = BA#) 0.03 x10 3/uL 0.0-0.20 N - XR CHEST 1 [id number] 14:08:00 [facility] 1950 Sex: FPatient Name: KATELIN MUNSON Unit No: [id number] EXAMS: CPT CODE: [id number] XR CHEST 1 V 00153 CHEST, SINGLE VIEW DICTATION LOCATION A1 HISTORY: A spectral placement. A single view of the chest was obtained at 12:05 PM. No prior exams are available for comparison. FINDINGS: Mild cardiomegaly and central pulmonary vascular congestion are present. The lungs are clear. No pneumothorax is seen. Left chest pacing device and cardiac leads appear to be in good position. IMPRESSION: Mild cardiomegaly and central pulmonary vascular congestion. No acute findings otherwise. at 1408 Reported and signed by: Eddie Muniz Jr, MD CC:Florentino Jenkins MD Technologist: Miasel Anaya Fluoro Time: DAP (Gy m2): Air Kerma (mGy): Trscr Dt/Tm:05/08/2021 (1408) by:Viky Printed Date/Time: 05/08/2021 (1411) Name: KATELIN MUNSON [facility] Phys: MUKUNDBR.Shefali - Florentino Jenkins MD [id number] : 1950 Age: 70 Sex: [place] [id number] Loc: P.[id number] 1 Exam Date: 05/08/2021 Status: ADM IN PH: FAX: PAGE 1 Signed ReportHEMOGLOBIN [id number] 00:00:00 Test Item Value Reference Range Interpretation Comments HEMOGLOBIN A1c (test code = 80982) 7.6 % HEMOGLOBIN [id number] 00:00:00 Test Item Value Reference Range Interpretation Comments HEMOGLOBIN A1c (test code = 96458) 7.6 % HEMOGLOBIN [id number] 00:00:00 Test Item Value Reference Range Interpretation Comments HEMOGLOBIN A1c (test code = 34476) 7.6 % LIPID [id number] 00:00:00 Test Item Value Reference Range Interpretation Comments CHOLESTEROL (test code = 2210) 124 MG/DL TRIGLYCERIDES (test code = 2232) 161 MG/DL HDL CHOLESTEROL (test code = 2220) 34 MG/DL CALC LDL CHOL (test code = 2237) 66 MG/DL RISK RATIO LDL/HDL (test code = 1.94 RATIO 2238) LIPID [id number] 00:00:00 Test Item Value Reference Range Interpretation Comments CHOLESTEROL (test code = 2210) 124 MG/DL TRIGLYCERIDES (test code = 2232) 161 MG/DL HDL CHOLESTEROL (test code = 2220) 34 MG/DL CALC LDL CHOL (test code = 2237) 66 MG/DL RISK RATIO LDL/HDL (test code = 1.94 RATIO 2238) COMPREHENSIVE METABOLIC [id number] 00:00:00 Test Item Value Reference Range Interpretation Comments GLUCOSE (test code = 2217) 177 MG/DL BUN (test code = 2208) 71 MG/DL CREATININE (test code = 2214) 2.96 MG/DL eGFR AMER. (test code 18 ML/MIN/1.73 = 41218) eGFR NON- AMER. (test 16 ML/MIN/1.73 code = 47009) CALC BUN/CREAT (test code = 24 RATIO 2235) SODIUM (test code = 2231) 142 MEQ/L POTASSIUM (test code = 2228) 4.8 MEQ/L CHLORIDE (test code = 2215) 100 MEQ/L CARBON DIOXIDE (test code = 28 MEQ/L 2205) CALCIUM (test code = 2209) 9.4 MG/DL PROTEIN, TOTAL (test code = 6.6 G/DL 2228) ALBUMIN (test code = 2201) 3.9 G/DL CALC GLOBULIN (test code = 2.7 G/DL 2240) CALC A/G RATIO (test code = 1.4 RATIO 2234) BILIRUBIN, TOTAL (test code = 0.4 MG/DL 2206) ALKALINE PHOSPHATASE (test 109 U/L code = 2204) AST (test code = 2218) 11 U/L ALT (test code = 2219) 15 U/L COMPREHENSIVE METABOLIC [id number] 00:00:00 Test Item Value Reference Range Interpretation Comments GLUCOSE (test code = 2217) 177 MG/DL BUN (test code = 2208) 71 MG/DL CREATININE (test code = 2214) 2.96 MG/DL eGFR AMER. (test code 18 ML/MIN/1.73 = 64841) eGFR NON- AMER. (test 16 ML/MIN/1.73 code = 52054) CALC BUN/CREAT (test code = 24 RATIO 2235) SODIUM (test code = 2231) 142 MEQ/L POTASSIUM (test code = 2228) 4.8 MEQ/L CHLORIDE (test code = 2215) 100 MEQ/L CARBON DIOXIDE (test code = 28 MEQ/L 2205) CALCIUM (test code = 2209) 9.4 MG/DL PROTEIN, TOTAL (test code = 6.6 G/DL 2228) ALBUMIN (test code = 2201) 3.9 G/DL CALC GLOBULIN (test code = 2.7 G/DL 2239) CALC A/G RATIO (test code = 1.4 RATIO 2233) BILIRUBIN, TOTAL (test code = 0.4 MG/DL 2206) ALKALINE PHOSPHATASE (test 109 U/L code = 2204) AST (test code = 2218) 11 U/L ALT (test code = 2219) 15 U/L HEMOGLOBIN [id number] 00:00:00 Test Item Value Reference Range Interpretation Comments HEMOGLOBIN A1c (test code = 48816) 7.6 % HEMOGLOBIN [id number] 00:00:00 Test Item Value Reference Range Interpretation Comments HEMOGLOBIN A1c (test code = 26459) 7.6 % HEMOGLOBIN [id number] 00:00:00 Test Item Value Reference Range Interpretation Comments HEMOGLOBIN A1c (test code = 37077) 7.6 % LIPID [id number] 00:00:00 Test Item Value Reference Range Interpretation Comments CHOLESTEROL (test code = 2210) 124 MG/DL TRIGLYCERIDES (test code = 2232) 161 MG/DL HDL CHOLESTEROL (test code = 2220) 34 MG/DL CALC LDL CHOL (test code = 2237) 66 MG/DL RISK RATIO LDL/HDL (test code = 1.94 RATIO 2238) LIPID [id number] 00:00:00 Test Item Value Reference Range Interpretation Comments CHOLESTEROL (test code = 2210) 124 MG/DL TRIGLYCERIDES (test code = 2232) 161 MG/DL HDL CHOLESTEROL (test code = 2220) 34 MG/DL CALC LDL CHOL (test code = 2237) 66 MG/DL RISK RATIO LDL/HDL (test code = 1.94 RATIO 2238) COMPREHENSIVE METABOLIC [id number] 00:00:00 Test Item Value Reference Range Interpretation Comments GLUCOSE (test code = 2217) 177 MG/DL BUN (test code = 2208) 71 MG/DL CREATININE (test code = 2214) 2.96 MG/DL eGFR AMER. (test code 18 ML/MIN/1.73 = 29935) eGFR NON- AMER. (test 16 ML/MIN/1.73 code = 82887) CALC BUN/CREAT (test code = 24 RATIO 2235) SODIUM (test code = 2231) 142 MEQ/L POTASSIUM (test code = 2228) 4.8 MEQ/L CHLORIDE (test code = 2215) 100 MEQ/L CARBON DIOXIDE (test code = 28 MEQ/L 2206) CALCIUM (test code = 2209) 9.4 MG/DL PROTEIN, TOTAL (test code = 6.6 G/DL 2228) ALBUMIN (test code = 2201) 3.9 G/DL CALC GLOBULIN (test code = 2.7 G/DL 2240) CALC A/G RATIO (test code = 1.4 RATIO 2234) BILIRUBIN, TOTAL (test code = 0.4 MG/DL 2206) ALKALINE PHOSPHATASE (test 109 U/L code = 2204) AST (test code = 2218) 11 U/L ALT (test code = 2219) 15 U/L COMPREHENSIVE METABOLIC [id number] 00:00:00 Test Item Value Reference Range Interpretation Comments GLUCOSE (test code = 2217) 177 MG/DL BUN (test code = 2208) 71 MG/DL CREATININE (test code = 2214) 2.96 MG/DL eGFR AMER. (test code 18 ML/MIN/1.73 = 51383) eGFR NON- AMER. (test 16 ML/MIN/1.73 code = 83227) CALC BUN/CREAT (test code = 24 RATIO 2235) SODIUM (test code = 2231) 142 MEQ/L POTASSIUM (test code = 2228) 4.8 MEQ/L CHLORIDE (test code = 2215) 100 MEQ/L CARBON DIOXIDE (test code = 28 MEQ/L 2206) CALCIUM (test code = 2209) 9.4 MG/DL PROTEIN, TOTAL (test code = 6.6 G/DL 2228) ALBUMIN (test code = 2201) 3.9 G/DL CALC GLOBULIN (test code = 2.7 G/DL 2239) CALC A/G RATIO (test code = 1.4 RATIO 2234) BILIRUBIN, TOTAL (test code = 0.4 MG/DL 2206) ALKALINE PHOSPHATASE (test 109 U/L code = 2204) AST (test code = 2218) 11 U/L ALT (test code = 2219) 15 U/L HEMOGLOBIN [id number] 00:00:00 Test Item Value Reference Range Interpretation Comments HEMOGLOBIN A1c (test code = 04209) 6.6 % HEMOGLOBIN [id number] 00:00:00 Test Item Value Reference Range Interpretation Comments HEMOGLOBIN A1c (test code = 32024) 6.6 % HEMOGLOBIN [id number] 00:00:00 Test Item Value Reference Range Interpretation Comments HEMOGLOBIN A1c (test code = 29019) 6.6 % LIPID [id number] 00:00:00 Test Item Value Reference Range Interpretation Comments CHOLESTEROL (test code = 2210) 158 MG/DL TRIGLYCERIDES (test code = 2232) 144 MG/DL HDL CHOLESTEROL (test code = 2220) 42 MG/DL CALC LDL CHOL (test code = 2237) 92 MG/DL RISK RATIO LDL/HDL (test code = 2.19 RATIO 2238) LIPID [id number] 00:00:00 Test Item Value Reference Range Interpretation Comments CHOLESTEROL (test code = 2210) 158 MG/DL TRIGLYCERIDES (test code = 2232) 144 MG/DL HDL CHOLESTEROL (test code = 2220) 42 MG/DL CALC LDL CHOL (test code = 2237) 92 MG/DL RISK RATIO LDL/HDL (test code = 2.19 RATIO 2238) COMPREHENSIVE METABOLIC [id number] 00:00:00 Test Item Value Reference Range Interpretation Comments GLUCOSE (test code = 2217) 146 MG/DL BUN (test code = 2208) 55 MG/DL CREATININE (test code = 2214) 2.77 MG/DL eGFR AMER. (test code 20 ML/MIN/1.73 = 16765) eGFR NON- AMER. (test 17 ML/MIN/1.73 code = 28221) CALC BUN/CREAT (test code = 20 RATIO 2235) SODIUM (test code = 2231) 143 MEQ/L POTASSIUM (test code = 2228) 5.2 MEQ/L CHLORIDE (test code = 2215) 101 MEQ/L CARBON DIOXIDE (test code = 26 MEQ/L 220) CALCIUM (test code = 2209) 9.7 MG/DL PROTEIN, TOTAL (test code = 6.8 G/DL 2228) ALBUMIN (test code = 2201) 4.0 G/DL CALC GLOBULIN (test code = 2.8 G/DL 2240) CALC A/G RATIO (test code = 1.4 RATIO 2234) BILIRUBIN, TOTAL (test code = 0.3 MG/DL 2206) ALKALINE PHOSPHATASE (test 117 U/L code = 2204) AST (test code = 2218) 18 U/L ALT (test code = 2219) 20 U/L COMPREHENSIVE METABOLIC [id number] 00:00:00 Test Item Value Reference Range Interpretation Comments GLUCOSE (test code = 2217) 146 MG/DL BUN (test code = 2208) 55 MG/DL CREATININE (test code = 2214) 2.77 MG/DL eGFR AMER. (test code 20 ML/MIN/1.73 = 15985) eGFR NON- AMER. (test 17 ML/MIN/1.73 code = 00516) CALC BUN/CREAT (test code = 20 RATIO 2235) SODIUM (test code = 2231) 143 MEQ/L POTASSIUM (test code = 2228) 5.2 MEQ/L CHLORIDE (test code = 2215) 101 MEQ/L CARBON DIOXIDE (test code = 26 MEQ/L 2205) CALCIUM (test code = 2209) 9.7 MG/DL PROTEIN, TOTAL (test code = 6.8 G/DL 2228) ALBUMIN (test code = 2201) 4.0 G/DL CALC GLOBULIN (test code = 2.8 G/DL 2240) CALC A/G RATIO (test code = 1.4 RATIO 2234) BILIRUBIN, TOTAL (test code = 0.3 MG/DL 2206) ALKALINE PHOSPHATASE (test 117 U/L code = 2204) AST (test code = 2218) 18 U/L ALT (test code = 2219) 20 U/L HEMOGLOBIN [id number] 00:00:00 Test Item Value Reference Range Interpretation Comments HEMOGLOBIN A1c (test code = 16327) 6.6 % HEMOGLOBIN [id number] 00:00:00 Test Item Value Reference Range Interpretation Comments HEMOGLOBIN A1c (test code = 20748) 6.6 % HEMOGLOBIN [id number] 00:00:00 Test Item Value Reference Range Interpretation Comments HEMOGLOBIN A1c (test code = 02055) 6.6 % LIPID [id number] 00:00:00 Test Item Value Reference Range Interpretation Comments CHOLESTEROL (test code = 2210) 158 MG/DL TRIGLYCERIDES (test code = 2232) 144 MG/DL HDL CHOLESTEROL (test code = 2220) 42 MG/DL CALC LDL CHOL (test code = 2237) 92 MG/DL RISK RATIO LDL/HDL (test code = 2.19 RATIO 2238) LIPID [id number] 00:00:00 Test Item Value Reference Range Interpretation Comments CHOLESTEROL (test code = 2210) 158 MG/DL TRIGLYCERIDES (test code = 2232) 144 MG/DL HDL CHOLESTEROL (test code = 2220) 42 MG/DL CALC LDL CHOL (test code = 2237) 92 MG/DL RISK RATIO LDL/HDL (test code = 2.19 RATIO 2238) COMPREHENSIVE METABOLIC [id number] 00:00:00 Test Item Value Reference Range Interpretation Comments GLUCOSE (test code = 2217) 146 MG/DL BUN (test code = 2208) 55 MG/DL CREATININE (test code = 2214) 2.77 MG/DL eGFR AMER. (test code 20 ML/MIN/1.73 = 13937) eGFR NON- AMER. (test 17 ML/MIN/1.73 code = 97475) CALC BUN/CREAT (test code = 20 RATIO 2235) SODIUM (test code = 2231) 143 MEQ/L POTASSIUM (test code = 2228) 5.2 MEQ/L CHLORIDE (test code = 2215) 101 MEQ/L CARBON DIOXIDE (test code = 26 MEQ/L 2205) CALCIUM (test code = 2209) 9.7 MG/DL PROTEIN, TOTAL (test code = 6.8 G/DL 2228) ALBUMIN (test code = 2201) 4.0 G/DL CALC GLOBULIN (test code = 2.8 G/DL 2239) CALC A/G RATIO (test code = 1.4 RATIO 2234) BILIRUBIN, TOTAL (test code = 0.3 MG/DL 2206) ALKALINE PHOSPHATASE (test 117 U/L code = 2204) AST (test code = 2218) 18 U/L ALT (test code = 2219) 20 U/L COMPREHENSIVE METABOLIC [id number] 00:00:00 Test Item Value Reference Range Interpretation Comments GLUCOSE (test code = 2217) 146 MG/DL BUN (test code = 2208) 55 MG/DL CREATININE (test code = 2214) 2.77 MG/DL eGFR AMER. (test code 20 ML/MIN/1.73 = 86830) eGFR NON- AMER. (test 17 ML/MIN/1.73 code = 78458) CALC BUN/CREAT (test code = 20 RATIO 2235) SODIUM (test code = 2231) 143 MEQ/L POTASSIUM (test code = 2228) 5.2 MEQ/L CHLORIDE (test code = 2215) 101 MEQ/L CARBON DIOXIDE (test code = 26 MEQ/L 2206) CALCIUM (test code = 2209) 9.7 MG/DL PROTEIN, TOTAL (test code = 6.8 G/DL 2228) ALBUMIN (test code = 2201) 4.0 G/DL CALC GLOBULIN (test code = 2.8 G/DL 2240) CALC A/G RATIO (test code = 1.4 RATIO 2234) BILIRUBIN, TOTAL (test code = 0.3 MG/DL 2206) ALKALINE PHOSPHATASE (test 117 U/L code = 2204) AST (test code = 2218) 18 U/L ALT (test code = 2219) 20 U/L CULTURE, [id number] 00:00:00 Test Item Value Reference Range Interpretation Comments CULTURE, ROUTINE (test SPECIMEN NUMBER: code = 49834) [id number] CULTURE, [id number] 00:00:00 Test Item Value Reference Range Interpretation Comments CULTURE, ROUTINE (test SPECIMEN NUMBER: code = 76933) [id number] CULTURE, [id number] 00:00:00 Test Item Value Reference Range Interpretation Comments CULTURE, ROUTINE (test SPECIMEN NUMBER: code = 98986) [id number] CULTURE, [id number] 00:00:00 Test Item Value Reference Range Interpretation Comments CULTURE, ROUTINE (test SPECIMEN NUMBER: code = 41939) CULTURE, [id number] 00:00:00 Test Item Value Reference Range Interpretation Comments CULTURE, ROUTINE (test SPECIMEN NUMBER: code = 86531) [id number] CULTURE, [id number] 00:00:00 Test Item Value Reference Range Interpretation Comments CULTURE, ROUTINE (test SPECIMEN NUMBER: code = 22459) [id number]
[2022-12-31] MEDS ORDERED: ONDANSETRON 4 MG/2 ML VIAL IV PRN (18:43)
--- NOTE | 2022-12-31 19:13 | P.HP ---
Certification for Inpatient Patient admitted to: Inpatient With expected LOS: >2 Midnights Patient will require the following post-hospital care: None Practitioner: I am a practitioner with admitting privileges, knowledge of patient current condition, hospital course, and medical plan of care. 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 She was referred here for direct admission for IV diuresis. Allergies amoxicillin [Amoxicillin] Allergy (Intermediate, Verified 12/27/11 05:36) Hives/Rash sulfamethoxazole [From Bactrim] Allergy (Intermediate, Verified 12/27/11 05:36) Hives/Rash trimethoprim [From Bactrim] Allergy (Intermediate, Verified 12/27/11 05:36) Hives/Rash Home Medications: Allopurinol 100 mg PO DAILY 06/23/20 Apixaban [Eliquis *] 5 mg PO BID 06/23/20 Atorvastatin Calcium 20 mg PO BEDTIME 06/23/20 Carvedilol [Coreg] 12.5 mg PO BID 06/23/20 Cholecalciferol (Vitamin D3) [Vitamin D3] 3,000 unit PO DAILY 06/23/20 Ferrous Sulfate [Iron] 325 mg PO DAILY 06/23/20 Furosemide 80 mg PO BID 06/23/20 Loratadine [Claritin*] 10 mg PO DAILY 06/23/20 Melatonin 10 mg PO BEDTIME 06/24/21 Fluconazole [Diflucan] 150 mg PO Q7D #6 tablet 06/28/21 Spironolactone [Aldactone] 25 mg PO BID #60 tab 06/28/21 - Past Medical/Surgical History Diabetic: Yes -: Diabetes mellitus type 2-insulin dependent -: Hypertension -: Afib on chronic anticoagulation -: Obesity -: Hyperlipidemia -: Chronic renal disease stage IV -: Cancer uterine 3years ago -: Degenerative joint disease of the hip -: Chronic systolic congestive heart failure -: Tubal ligation -: Hysterectomy Psychosocial/ Personal History: She is of 49 years, has 4 children, she does not work, lives at home with her . - Family History Father -: Kidney disease Mother -: Diabetes - Social History Smoking Status: Never smoker Alcohol use: No CD- Drugs: No Caffeine use: Yes Place of Residence: Home Review of Systems 10-point ROS is otherwise unremarkable Respiratory: Shortness of Breath, SOB with Excertion Cardiovascular: Edema Physical Examination - Physical Exam General: Alert, In no apparent distress, Oriented x3, Obese HEENT: Atraumatic, PERRLA, Mucous membr. moist/pink, EOMI, Sclerae nonicteric Neck: Supple, 2+ carotid pulse no bruit, No LAD, Without JVD or thyroid abnorma lity Respiratory: Diminished Cardiovascular: Normal S1 S2, Edema, Irregular heart rate/rhythm (A-fib) Capillary refill: <2 Seconds Gastrointestinal: Normal bowel sounds, No tenderness Musculoskeletal: No tenderness Integumentary: No rashes Neurological: Normal speech, Normal strength at 5/5 x4 extr, Normal tone, Normal affect Assessment and Plan - Plan Assessment: Acute on chronic systolic congestive heart failure Atrial fibrillation on chronic anticoagulation Diabetes mellitus type 2insulin-dependent CKD 4 Hypertension Hyperlipidemia Hypothyroidism Plan: Acute on chronic systolic congestive heart failure Continue IV diuresis, labs ordered including BNP, troponin, chemistries. Chest x-ray ordered. Will follow results. Nephrology consult/cardiology consult in place. Atrial fibrillation on chronic anticoagulation Continue Eliquis and other home medications, will monitor on telemetry. Diabetes mellitus type 2insulin-dependent ACHS Accu-Chek, sliding scale insulin. Patient reports taking Novolin and 52 units twice daily, will confirm start reduce long-acting insulin during hospitalization. CKD 4 Chemistry pending, will follow results, nephrology consult in place. Hypertension Hyperlipidemia Hypothyroidism Continue home medications as appropriate. DVT PPX: Continue Eliquis Code status: Full Discharge Plan: Home Plan to discharge in: 72 Hours - Advance Directives Does patient have a Living Will: No Does patient have a Durable POA for Healthcare: No - Code Status/Comfort Care Code Status Assessed: Yes (Full code) Critical Care: No Time Spent Managing Pts Care (In Minutes): 70
[2022-12-31 19:24] LABS: Absolute Lymphocytes (CBC) 0.5 K/uL (0.7-4.9); Hematocrit 25.8 % (36.0-45.0); Lymphocytes % 3.6 % (15.3-44.8); MCV 83.4 fL (80-100); MPV 7.4 fL (7.6-11.3); RBC Red Blood Cell Count 3.09 M/uL (3.86-4.86)
[2022-12-31 19:26] LABS: Anisocytosis 1+; Blood Morphology Comment NOTED (NOT SEEN); Platelet Estimate ADEQ; White Blood Cell Scan OK (OK)
[2022-12-31 19:40] LABS: Albumin 2.8 g/dL (3.4-5.0); Bilirubin Total 0.5 mg/dL (0.2-1.0); Potassium 4.2 mEq/L (3.5-5.1); Protein, Total 6.8 g/dL (6.4-8.2); Troponin High Sensitivity 39.5 pg/mL (<58.9)
--- NOTE | 2022-12-31 20:48 | RAD REPORT ---
EXAM DESCRIPTION: RADChest Single View12/31/2022 7:28 pm CLINICAL HISTORY: Hypervolemia COMPARISON: Chest Pa And Lat (2 Views) dated 10/28/2021; Chest Single View dated 06/24/2021; Chest Si ngle View dated 05/08/2021; Chest Single View dated 06/22/2020 TECHNIQUE: Portable AP view of the chest. FINDINGS: The lungs are clear.Stable chronic diffuse interstitial thickening. No pneumothorax or eff usion. The mediastinal contours are unchanged. Stable mild cardiomegaly. Left chest wall pacer/ AICD again seen. . IMPRESSION: No acute cardiopulmonary process. Stable chronic interstitial changes.
[2022-12-31] MEDS: APIXABAN 2.5 MG TABLET PO SCH (20:52)
[2022-12-31] MEDS: INSULIN -REGULAR HUMAN 50 UNIT/0.5 ML ML SQ SCH (21:00)
[2022-12-31] MEDS ORDERED: FUROSEMIDE 40 MG/4 ML VIAL IV SCH (21:00)
[2022-12-31 21:56] VITALS: BMI 50.6
[2022-12-31 22:33] LABS: Urine Bacteria <20 /HPF (<20); Urine Bilirubin NEGATIVE (Negative); Urine Blood Trace (Negative); Urine Clarity Clear (Clear); Urine Color Colorless (Yellow); Urine Glucose 1+ (Negative); Urine Protein 1+ (Negative); Urine RBC <5 /HPF (None Seen); Urine Urobilinogen Normal (Normal); Urine pH 6.5 (5.0-7.0)
[2023-01-01 03:40] LABS: Absolute Lymphocytes (CBC) 0.7 K/uL (0.7-4.9); Hematocrit 24.3 % (36.0-45.0); Lymphocytes % 5.9 % (15.3-44.8); MCV 84.6 fL (80-100); MPV 7.9 fL (7.6-11.3); RBC Red Blood Cell Count 2.88 M/uL (3.86-4.86)
[2023-01-01 04:00] LABS: Ferritin 29.4 ng/mL (8-388); Magnesium 2.5 mg/dL (1.6-2.4); Potassium 4.5 mEq/L (3.5-5.1); Thyroid Stimulating Hormone 2.33 uIU/mL (0.358-3.740)
--- NOTE | 2023-01-01 07:01 | P.PN ---
Date of Service: 01/01/23 Subjective: Feeling a little better today easily SOB with exertion ~unchanged no new / worsening problems ROS: 10 point ROS as noted above, otherwise negative Physical Exam: GEN: Alert, oriented, NAD HEENT: Normal conjunctiva, sclera anicteric CV: Irregularly irregular heart rate and rhythm, Systolic murmur Pulm: Nonlabored respirations on 2L NC, diminished at bases b/l ABD: Soft, nontender, nondistended MSK: No joint tenderness Integumentary: No rashes Neuro: Normal speech, normal affect vitals reviewed Problem List: Acute on chronic systolic CHF A-fib on chronic anticoagulation [id number] CKD 4 Iron deficiency anemia Hypertension Hyperlipidemia Hypothyroidism Acute on chronic systolic CHF Continue lasix Trend troponin CXR pending cardiology consulted Echo 01/01 normal A-fib on chronic anticoagulation Continue Eliquis and other home medications monitor on telemetry [id number] continue sliding scale insulin. Patient reports taking Novolin and 52 units twice daily, will confirm start reduce long-acting insulin during hospitalization. CKD 4 nephrology consulted increased lasix 01/01 Iron deficiency anemia IV iron Hypertension Hyperlipidemia Hypothyroidism Continue home medications VTE: Eliquis Code: Full Dispo: Home 48-72hrs
[2023-01-01] MEDS: INSULIN -REGULAR HUMAN 50 UNIT/0.5 ML ML SQ SCH ×4 (07:30→21:08)
[2023-01-01] MEDS ORDERED: FUROSEMIDE 40 MG/4 ML VIAL IV SCH (09:00)
[2023-01-01] MEDS: FUROSEMIDE 40 MG/4 ML VIAL IV SCH ×3 (10:07→21:08)
[2023-01-01] MEDS: APIXABAN 2.5 MG TABLET PO SCH ×2 (10:07→21:08)
[2023-01-01] MEDS: SOD FERRIC GLUC COMPLX/SUCROSE 250 MG in NA CHLORIDE 0.9% 250 ML IV SCH (10:37)
--- NOTE | 2023-01-01 12:28 | CON ---
Date of Consultation: 01/01/2023 Reason For Consultation: ELEVATED BUN and creatinine, fluid management. 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 The patient came to the office yesterday was complaining from shortness of breath even on rest with hypoxemia down to the 80s. The patient on a high dose of Lasix of 120 mg as outpatient, but still gaining weight. She gained 10 pounds from last visit. For that reason, the patient was directed to the hospital. Over the night, the patient was started on diuresis. This still did not lose any weight. The patient still has shortness of breath. Past Medical History: Includes; 1. Diabetes complicated with neuropathy and nephropathy. 2. Uterine CA. 3. Hypertension. 4. Hyperlipidemia. 5. AFib status post ICD. 6. Chronic kidney disease, stage 4/5 secondary to diabetes nephropathy, status post AV fistula creation on the left arm. 7. Anemia of chronic kidney disease. 8. Iron deficiency anemia. 9. Leg swelling. Allergies: TO AMOXICILLIN, SULFASALAZINE, TRIMETHOPRIM. Past Surgical History: Includes; 1. ICD placement. 2. AV fistula creation. 3. Tubal ligation. 4. Hysterectomy. Family History: Positive for chronic kidney disease and diabetes. Social History: Denied smoking, denied drinking, denied drugs abuse. Review of Systems: Head and Neck: No red eye. No ear pain. GI: No nausea. No vomiting. : No polyuria. No dysuria. No hematuria. Uke Operator: No vaginal discharge. Respiratory: Has shortness of breath. Has orthopnea. Has leg swelling. Musculoskeletal: Generalized fatigue. Neuro: Has neuropathy, on wheelchair. Physical Examination: General: When I saw the patient; the patient lying in bed, shortness of breath. Vital Signs: Blood pressure 140/62, pulse of 80, and afebrile. The patient had urine output of 650. Chest: Crackles bilateral. Heart: S1, S2. Systolic murmur. Abdomen: Soft, nontender. Extremity: +1 edema. Neurologic: Alert. No focality. No tremor. Laboratory Data: WBC 12.5, H and H 7.7/24.3. Sodium 143, potassium 4.5, bicarb 37, BUN 64, creatinine 1.8, calcium 9.4, magnesium 2.5. Iron saturation 6.3, ferritin 29. BNP 3600. TSH 2.3. Chest x-ray; cardiomegaly with congestion. Current Medications: The patient on in the hospital include; 1. Eliquis. 2. Lasix 40 b.i.d. 3. Zofran. Home Medications: Include; 1. Lasix 120/80. 2. Eliquis. 3. Allopurinol. 4. Carvedilol 12.5. 5. Atorvastatin. 6. Loratadine. 7. Melatonin. Assessment And Plan: 1. Chronic kidney disease, stage 4 secondary to cardiorenal, on the over volume side. I am going to go ahead and increase Lasix to 80 mg t.i.d. and we will continue to monitor the patient. 2. Hypertension, controlled, optimal. We will utilize blood pressure for more diuresis. 3. Diabetes as by primary. 4. Iron deficiency anemia. We will start the patient on IV iron. 5. Secondary hyperparathyroidism. PTH on the goal, calcium and phosphorus on the goal. Thank you, Dr. Elizabeth for allowing us to participate in the care of your patient. Time spent examining the patient [id number], reviewing data, lab and radiology, placing order, discussing the case with the patient, discussing the case with the steam trap worker including nurse more than 65 minutes DOE Voice ID: [id number] Report ID: [id number] ASA
--- NOTE | 2023-01-01 12:45 | ECHO ---
HEIGHT: 5 ft 1 in WEIGHT: 268 lb 0 oz DATE OF STUDY: 01/01/[address]: Rolando Wade NP 2-DIMENSIONAL: YES M.MODE: YES DOPPLER: YES COLOR FLOW: YES TDS: NO PORTABLE: YES DEFINITY: NO BUBBLE STUDY: NO DIAGNOSIS: CONGESTIVE HEART FAILURE CARDIAC HISTORY: CATHERIZATION: NO SURGERY: NO PROSTHETIC VALVE: NO PACEMAKER: YES MEASUREMENTS (cm) DIASTOLIC (NORMALS) SYSTOLIC (NORMALS) IVSd 1.1 (0.6-1.2) LA Diam 3.9 (1.9-4.0) LVEF 79% LVIDd 5.0 (3.5-5.7) LVIDs 2.6 (2.0-3.5) %FS 47% LVPWd 1.1 (0.6-1.2) Ao Diam 2.7 (2.0-3.7) 2 DIMENSIONAL ASSESSMENT: RIGHT ATRIUM: NORMAL LEFT ATRIUM: NORMAL RIGHT VENTRICLE: NORMAL LEFT VENTRICLE: NORMAL TRICUSPID VALVE: NORMAL MITRAL VALVE: NORMAL PULMONIC VALVE: NORMAL AORTIC VALVE: NORMAL PERICARDIAL EFFUSION: NONE AORTIC ROOT: NORMAL LEFT VENTRICULAR WALL MOTION: NORMAL. DOPPLER/COLOR FLOW: TRACE MITRAL AND TRICUSPID REGURGITATION. COMMENTS: 1. NORMAL LEFT VENTRICULAR SIZE AND FUNCTION. 2. NO EFFUSION. 3. NO WALL MOTION ABNORMALITY. TECHNOLOGIST: Marychuy LALA
[2023-01-01] MEDS: ATORVASTATIN 20 MG TAB PO SCH (21:07)
[2023-01-01] MEDS: carvediloL 12.5 MG TAB PO SCH (21:08)
--- NOTE | 2023-01-01 21:27 | CON ---
Date of Consultation: 01/01/2023 Reason For Consultation: History of congestive heart failure. History Of Present Illness: Ms. Munson is 72. Has had a history of pacemaker. She is known to have l eft ventricular hypertrophy, ejection fraction 33% by an echo in 2020. She has a history of paroxysm al atrial fibrillation, anemia, gout, dyslipidemia, hypertension, as well as, the congestive heart fa ilure as stated earlier. She came in with PND, orthopnea, and pedal edema, shortness of breath and w eakness. Allergies: TO BACTRIM AND PENICILLIN. Review of Systems: Negative. Social History: Negative. Family History: Negative. Medications: At home include Lasix 80 b.i.d., Coreg, Eliquis, Lipitor, iron, and allopurinol. Physical Examination: Vital Signs: Her blood pressure was 177/80. She was in a paced rhythm. HEENT: Negative. Neck: Supple with no bruit. Chest: Clear. Cardiac: Revealed a paced rhythm. No murmurs, gallops, or rubs. Abdomen: Benign. Extremities: Revealed no clubbing, cyanosis, or edema. Diagnostic Data: Hemoglobin was 7.7. Chest x-ray was negative. BNP is 3700. Rest of the blood wor k is unremarkable. Impression And Plan: Acute on chronic systolic congestive heart failure. Echocardiogram is pending. We need to diurese her. I think we need to give her some blood transfusion. Her hemoglobin is 7.7 . I think we need to consult Renal to follow her with us considering her creatinine is 1.88. Again, further therapy may be dictated by what the echo will show. She will need an outpatient appointment and an outpatient Lexiscan down the road. She needed to have her pacemaker checked down the road. For now, like I said, continue Coreg, Eliquis, iron, allopurinol, Lipitor. Continue Lasix IV. Trans fuse. See what the echo shows. Obtain Nephrology consultation. We will continue to follow. GENESIS/SUSAN Voice ID: [id number] Report ID: [id number]
[2023-01-02] MEDS: MELATONIN 5 MG TABLET PO PRN ×2 (01:41→22:59)
[2023-01-02 07:06] LABS: Absolute Lymphocytes (CBC) 0.7 K/uL (0.7-4.9); Lymphocytes % 7.1 % (15.3-44.8); MCV 85.3 fL (80-100); MPV 7.7 fL (7.6-11.3); RBC Red Blood Cell Count 2.81 M/uL (3.86-4.86)
[2023-01-02 07:22] LABS: Magnesium 2.5 mg/dL (1.6-2.4); Potassium 3.9 mEq/L (3.5-5.1)
--- NOTE | 2023-01-02 07:23 | P.PN ---
Date of Service: 01/02/23 Subjective: Breathing feels easier today - still worsens with exertion Swelling about the same no new problems started IV iron yesterday; hgb down ROS: 10 point ROS as noted above, otherwise negative Physical Exam: GEN: Alert, oriented, NAD HEENT: Normal conjunctiva, sclera anicteric CV: Irregularly irregular heart rate and rhythm, Systolic murmur, 1-2+ edema b/l lower extremity Pulm: Nonlabored respirations on 2L NC at rest, diminished at bases b/l ABD: Soft, nontender, nondistended MSK: dressing in place b/l lower extremity, serosanguineous Neuro: Normal speech, normal affect vitals reviewed Problem List: Acute on chronic diastolic CHF A-fib on chronic anticoagulation [id number] CKD 4 Iron deficiency anemia Hypertension Hyperlipidemia Hypothyroidism Acute on chronic diastolic CHF Continue lasix - 80 TID CXR negative cardiology consulted Echo 01/01 normal EF A-fib on chronic anticoagulation Continue Eliquis monitor on telemetry [id number] continue sliding scale insulin Patient reports taking Novolin and 52 units twice daily, start at lower dose CKD 4 nephrology consulted increased lasix 01/01 Iron deficiency anemia IV iron hgb 7.7 -> 7.3 01/02 Hypertension Hyperlipidemia Hypothyroidism Continue home medications VTE: Eliquis Code: Full Dispo: Home 48-72hrs
[2023-01-02] MEDS: APIXABAN 2.5 MG TABLET PO SCH ×2 (08:48→21:39)
[2023-01-02] MEDS: allopurinoL 100 MG TAB PO SCH (08:48)
[2023-01-02] MEDS: INSULIN -REGULAR HUMAN 50 UNIT/0.5 ML ML SQ SCH ×4 (08:49→21:41)
[2023-01-02] MEDS: FUROSEMIDE 40 MG/4 ML VIAL IV SCH ×3 (08:49→21:40)
[2023-01-02] MEDS: carvediloL 12.5 MG TAB PO SCH ×2 (08:49→21:39)
[2023-01-02] MEDS: LORATADINE 10 MG TAB PO SCH (08:49)
--- NOTE | 2023-01-02 12:39 | P.PN ---
Subjective Date of Service: 01/02/23 Chief Complaint: CHF exacerbation Subjective: No new changes Physical Examination - Vital Signs Temperature: 97.7 F Blood Pressure: 167/74 Pulse: 80 Respirations: 14 Pulse Ox (%): 99 - Physical Exam General: Other (appears as her stated age) HEENT: Atraumatic, Normocephalic Neck: Supple Respiratory: Other (symmetric chest expansion) Cardiovascular: No rubs, No murmurs Gastrointestinal: Soft and benign, No guarding Musculoskeletal: No clubbing Integumentary: No warmth Neurological: Normal tone Urinary: Other (no bladder distention) External genitalia: Deferred Rectal: Deferred - Studies Laboratory Data (last 24 hrs) 01/02/23 06:40: Sodium 141, Potassium 3.9, BUN 67 H, Creatinine 1.91 H, Glucose 236 H, Magnesium 2.5 H 01/02/23 06:40: WBC 9.90, Hgb 7.3 L, Hct 24.0 L, Plt Count 288 Assessment And Plan - Plan 1. Chronic kidney disease, stage 4 secondary to cardiorenal, on the over volume side. SCr plateaued at 1.9. Lasix. Monitor input and output and renal panel. 2. Bilat leg edema. Continue Lasix. 3. Hypertension, controlled. continue current medication regimen. 4. DM2. management per primary team. 5. Iron deficiency anemia. on IV iron. 6. Secondary hyperparathyroidism. PTH on the goal, calcium and phosphorus on the goal. monitor.
[2023-01-02] MEDS: ATORVASTATIN 20 MG TAB PO SCH (21:39)
[2023-01-02] MEDS ORDERED: GLUCAGON 1 MG/VIAL IM PRN (22:50)
[2023-01-02] MEDS ORDERED: D50W 25 GM/50 ML SYRINGE IV PRN (22:50)
[2023-01-02] MEDS ORDERED: D10W 125 ML IV PRN (22:54)
--- NOTE | 2023-01-03 00:07 | PN ---
Date of Progress Note: 01/02/2023 Ms. Munson had came in with a diagnosis of congestive heart failure. Apparently, has had an ejection f raction in the 30s, a few years back. She came in at this time with possible congestive heart failur e, mostly renal failure, among other issues. Nephrology is following. Her echocardiogram was litera lly perfectly normal without any evidence of congestive heart failure with no wall motion abnormaliti es. No effusion. I think most of her problem is renal failure. Case was discussed with Dr. Elizabeth. We will sign off her case for now. GENESIS/SUSAN Voice ID: [id number] Report ID: [id number]
[2023-01-03] MEDS: INSULIN -REGULAR HUMAN 50 UNIT/0.5 ML ML SQ SCH ×4 (07:30→20:59)
[2023-01-03 07:39] LABS: Absolute Lymphocytes (CBC) 0.6 K/uL (0.7-4.9); Hematocrit 23.2 % (36.0-45.0); Lymphocytes % 6.2 % (15.3-44.8); MCV 84.8 fL (80-100); RBC Red Blood Cell Count 2.73 M/uL (3.86-4.86)
[2023-01-03 07:50] LABS: Magnesium 2.5 mg/dL (1.6-2.4)
--- NOTE | 2023-01-03 08:04 | P.PN ---
Date of Service: 01/03/23 Subjective: Feeling much better today; at least 50% of normal self Breathing feels much easier today; more comfortable hgb down to 7.2 ROS: 10 point ROS as noted above, otherwise negative Physical Exam: GEN: Alert, oriented, NAD HEENT: Normal conjunctiva, sclera anicteric CV: Irregularly irregular heart rate and rhythm, Systolic murmur, 1-2+ edema b/l lower extremity Pulm: Nonlabored respirations on 2L NC at rest, diminished at bases b/l ABD: Soft, nontender, nondistended MSK: dressing in place b/l lower extremity, serosanguineous Neuro: Normal speech, normal affect vitals reviewed Problem List: Acute on chronic diastolic CHF A-fib on chronic anticoagulation [id number] CKD 4 Iron deficiency anemia Hypertension Hyperlipidemia Hypothyroidism Acute on chronic diastolic CHF Continue lasix - 80 TID CXR negative cardiology consulted Echo 01/01 normal EF A-fib on chronic anticoagulation Continue Eliquis monitor on telemetry [id number] continue sliding scale insulin Patient reports taking Novolin and 52 units twice daily restarted at lower dose CKD 4 nephrology consulted increased lasix 01/01 Iron deficiency anemia IV iron hgb 7.7 -> 7.3 01/02 down to 7.2 01/03 1uPRBC ordered Hypertension Hyperlipidemia Hypothyroidism Continue home medications VTE: Eliquis Code: Full Dispo: Home 24-48hrs
[2023-01-03] MEDS: carvediloL 12.5 MG TAB PO SCH ×2 (09:57→20:58)
[2023-01-03] MEDS: APIXABAN 2.5 MG TABLET PO SCH ×2 (09:58→20:58)
[2023-01-03] MEDS: allopurinoL 100 MG TAB PO SCH (09:58)
[2023-01-03] MEDS: LORATADINE 10 MG TAB PO SCH (09:58)
[2023-01-03] MEDS: NPH (HUMAN) 100 UNITS/ML INSULIN SQ SCH ×2 (09:58→17:00)
[2023-01-03] MEDS: FUROSEMIDE 40 MG/4 ML VIAL IV SCH ×3 (09:58→20:59)
--- NOTE | 2023-01-03 14:01 | P.PN ---
Subjective Date of Service: 01/04/23 Chief Complaint: CHF exacerbation Subjective Pt with DM , CKD IV, CHF on home O2, admitted for Edema and fluid overload today no overnight events cr stable cont lasix monitor H/H will transfuse 1 PRBC Physical exam General: Awake, NAD , obese HEENT: Atraumatic, Normocephalic Neck: Supple, no elevated JVD Respiratory: CTAB Cardiovascular: No rubs, No murmurs Gastrointestinal: Soft and benign, Non-distended Musculoskeletal: No clubbing, tarce edema Integumentary: No warmth # Chronic kidney disease, stage 4 secondary to cardiorenal DM gomerulosclrosis , . SCr plateaued at 1.9. Cont l Lasix. Monitor input and output and renal panel. #Bilat leg edema. Continue Lasix. #Hypertension, controlled. continue current medication regimen. # DM2. management per primary team. #Iron deficiency anemia. on IV iron. Monitor H.h transfuse if Hb <7.0 will transfuse 1 PRBC #Secondary hyperparathyroidism. PTH on the goal, calcium and phosphorus on the goal. mo Physical Examination - Vital Signs Temperature: 97.8 F Blood Pressure: 145/63 Pulse: 80 Respirations: 14 Pulse Ox (%): 96 - Studies Laboratory Data (last 24 hrs) 01/03/23 06:50: Sodium 142, Potassium 4.0, BUN 71 H, Creatinine 1.92 H, Glucose 208 H, Magnesium 2.5 H 01/03/23 06:50: WBC 10.10, Hgb 7.2 L, Hct 23.2 L, Plt Count 284
--- NOTE | 2023-01-03 18:28 | PN ---
Date of Progress Note: 01/03/2023 Subjective: Seen by bedside. She is doing clinically well. Does not have any chest pain. Has shor tness of breath on exertion with lower extremity edema. No nausea, vomiting, or diarrhea. No dysuri a, polyuria, or urinary urgency. All other systems reviewed and they were negative. Physical Examination: Vital signs: Reviewed. Head and Neck: Pupils are equal, reactive to light. Intact eye movements. No cervical lymphadenopa thy. Neck: Supple. Thyroid is not enlarged. Lungs: Decreased breathing sounds bilaterally. No accessory muscle use or muscle retraction. Heart: Regular rate and rhythm. No extra sounds. Abdomen: Soft, nontender. Bowel sounds positive. No organomegaly. No masses or hernia. No rigidi ty or rebound. Extremities: Trace edema bilaterally. No clubbing or cyanosis. Intact pulses. Skin: No rash noted. Neurologic: Alert, awake, oriented x3, and no acute focal deficits appreciated. Investigations: BUN 71, creatinine 1.92, and hemoglobin is 7.2. Assessment And Recommendations: 1.Shortness of breath due to congestive heart failure exacerbation likely diastolic dysfunction. Ag ree with the aggressive diuresis as she still looks fluid overloaded. Continue current therapy. Mon itor BUN, creatinine, electrolytes. 2.Dyslipidemia. Continue statin. 3.Apparently has history of paroxysmal atrial fibrillation, on Eliquis and Coreg. Continue current management. SR/MODL Voice ID: [id number] Report ID: [id number]
[2023-01-03] MEDS: ATORVASTATIN 20 MG TAB PO SCH (20:58)
[2023-01-03] MEDS ORDERED: NA CHLORIDE 0.9% 250 ML IV SCH (23:00)
--- NOTE | 2023-01-04 07:22 | P.PN ---
Date of Service: 01/04/23 Subjective: Feeling better today Breathing continuing to improve; no complaints of pain states she has not been ambulating much - not gotten up to bathroom no new / worsening problems ROS: 10 point ROS as noted above, otherwise negative Physical Exam: GEN: Alert, oriented, NAD HEENT: Normal conjunctiva, sclera anicteric CV: Irregularly irregular heart rate and rhythm, Systolic murmur, 1+ edema b/l lower extremity Pulm: Nonlabored respirations on 3L NC at rest, diminished at bases b/l ABD: Soft, nontender, nondistended Integumentary: dressing in place b/l lower extremity, serosanguineous Neuro: Normal speech, normal affect vitals reviewed Problem List: Acute on chronic diastolic CHF A-fib on chronic anticoagulation [id number] CKD 4 Iron deficiency anemia Hypertension Hyperlipidemia Hypothyroidism Acute on chronic diastolic CHF Continue lasix - 80 TID IV will need to go home on 80mg BID at least cardiology consulted Echo 01/01 normal EF, A-fib on chronic anticoagulation Continue Eliquis monitor on telemetry [id number] continue sliding scale insulin Patient reports taking Novolin and 52 units twice daily restarted at lower dose, titrate CKD 4 nephrology consulted increased lasix 01/01 Iron deficiency anemia IV iron hgb 7.7 -> 7.3 01/02 down to 7.2 01/03 1uPRBC given 01/04 hgb 8.6 01/04 Repeat H&H in am Hypertension Hyperlipidemia Hypothyroidism Continue home medications VTE: Eliquis Code: Full Dispo: Home with home health 24-48hrs has a caregiver 3 days a week (MWF) States she has family that can help at home
[2023-01-04] MEDS: INSULIN -REGULAR HUMAN 50 UNIT/0.5 ML ML SQ SCH ×4 (07:30→20:26)
[2023-01-04 08:20] LABS: Absolute Lymphocytes (CBC) 0.6 K/uL (0.7-4.9); Hematocrit 27.6 % (36.0-45.0); Lymphocytes % 5.3 % (15.3-44.8); RBC Red Blood Cell Count 3.25 M/uL (3.86-4.86)
[2023-01-04 08:29] LABS: Albumin 2.7 g/dL (3.4-5.0); Bilirubin Total 0.5 mg/dL (0.2-1.0); Magnesium 2.5 mg/dL (1.6-2.4); Protein, Total 6.4 g/dL (6.4-8.2)
[2023-01-04] MEDS: allopurinoL 100 MG TAB PO SCH (10:06)
[2023-01-04] MEDS: carvediloL 12.5 MG TAB PO SCH ×2 (10:06→20:28)
[2023-01-04] MEDS: FUROSEMIDE 40 MG/4 ML VIAL IV SCH ×3 (10:06→20:27)
[2023-01-04] MEDS: LORATADINE 10 MG TAB PO SCH (10:06)
[2023-01-04] MEDS: SOD FERRIC GLUC COMPLX/SUCROSE 250 MG in NA CHLORIDE 0.9% 250 ML IV SCH (10:06)
[2023-01-04] MEDS: APIXABAN 2.5 MG TABLET PO SCH ×2 (10:07→20:26)
[2023-01-04] MEDS: NPH (HUMAN) 100 UNITS/ML INSULIN SQ SCH ×2 (10:07→17:51)
--- NOTE | 2023-01-04 14:26 | P.PN ---
Subjective Date of Service: 01/04/23 Chief Complaint: CHF exacerbation Subjective Pt with DM , CKD IV, CHF on home O2, admitted for Edema and fluid overload today no overnight events cr stable edema improving will plan to discharge tomorrow to be discharged on lasix 80mg po bid, instructed to increase to tid if Wt gain > 5lbs Physical exam General: Awake, NAD , obese HEENT: Atraumatic, Normocephalic Neck: Supple, no elevated JVD Respiratory: CTAB Cardiovascular: No rubs, No murmurs Gastrointestinal: Soft and benign, Non-distended Musculoskeletal: leg wrapped , liang Integumentary: No warmth # Chronic kidney disease, stage 4 secondary to cardiorenal DM gomerulosclrosis , . SCr plateaued at 1.9. Cont l Lasix. Monitor input and output and renal panel. #Bilat leg edema. Continue Lasix. #Hypertension, controlled. continue current medication regimen. # DM2. management per primary team. #Iron deficiency anemia. on IV iron. Monitor H.h transfuse if Hb <7.0 will transfuse 1 PRBC #Secondary hyperparathyroidism. PTH on the goal, calcium and phosphorus on the goal. mo Physical Examination - Vital Signs Temperature: 97.8 F Blood Pressure: 145/63 Pulse: 80 Respirations: 14 Pulse Ox (%): 96 - Studies Laboratory Data (last 24 hrs) 01/04/23 08:00: Hgb Cancelled, Hct Cancelled 01/04/23 07:45: Sodium 139, Potassium 4.0, BUN 79 H, Creatinine 1.88 H, Glucose 219 H, Magnesium 2.5 H, Total Bilirubin 0.5, AST 10 L, ALT 18, Alkaline Phospha tase 85 01/04/23 07:45: WBC 10.40, Hgb 8.6 L D, Hct 27.6 L, Plt Count 294 Microbiology Data (last 24 hrs): 01/04/23 00:10 Wound - L Leg (Lower) Gram Stain - Final
[2023-01-04] MEDS: ATORVASTATIN 20 MG TAB PO SCH (20:26)
[2023-01-04] MEDS ORDERED: ACETAMINOPHEN 325 MG TABLET PO PRN (23:45)
[2023-01-04] MEDS: MELATONIN 5 MG TABLET PO PRN (23:57)
[2023-01-05 04:43] LABS: Absolute Lymphocytes (CBC) 0.6 K/uL (0.7-4.9); Lymphocytes % 6.6 % (15.3-44.8); MCV 85.2 fL (80-100); MPV 7.6 fL (7.6-11.3); RBC Red Blood Cell Count 3.17 M/uL (3.86-4.86)
[2023-01-05 04:59] LABS: Albumin 2.7 g/dL (3.4-5.0); Bilirubin Total 0.3 mg/dL (0.2-1.0); Magnesium 2.5 mg/dL (1.6-2.4); Potassium 4.1 mEq/L (3.5-5.1); Protein, Total 6.4 g/dL (6.4-8.2)
--- NOTE | 2023-01-05 07:20 | P.PN ---
Date of Service: 01/05/23 Subjective: ROS: 10 point ROS as noted above, otherwise negative Physical Exam: GEN: Alert, oriented, NAD HEENT: Normal conjunctiva, sclera anicteric CV: Irregularly irregular heart rate and rhythm, Systolic murmur, 1+ edema b/l lower extremity Pulm: Nonlabored respirations on 3L NC at rest, diminished at bases b/l ABD: Soft, nontender, nondistended Integumentary: dressing in place b/l lower extremity, serosanguineous Neuro: Normal speech, normal affect vitals reviewed Problem List: Acute on chronic diastolic CHF A-fib on chronic anticoagulation [id number] CKD 4 Iron deficiency anemia Hypertension Hyperlipidemia Hypothyroidism Acute on chronic diastolic CHF Continue lasix - 80 TID IV will need to go home on 80mg BID at least cardiology consulted Echo 01/01 normal EF, A-fib on chronic anticoagulation Continue Eliquis monitor on telemetry [id number] continue sliding scale insulin Patient reports taking Novolin and 52 units twice daily restarted at lower dose, titrate CKD 4 nephrology consulted increased lasix 01/01 Iron deficiency anemia IV iron hgb 7.7 -> 7.3 01/02 down to 7.2 01/03 1uPRBC given 01/04 hgb 8.6 01/04 Repeat H&H in am Hypertension Hyperlipidemia Hypothyroidism Continue home medications VTE: Eliquis Code: Full Dispo: Home with home health 24-48hrs has a caregiver 3 days a week (MWF) States she has family that can help at home
[2023-01-05] MEDS: INSULIN -REGULAR HUMAN 50 UNIT/0.5 ML ML SQ SCH ×2 (07:30→12:48)
[2023-01-05] MEDS: FUROSEMIDE 40 MG/4 ML VIAL IV SCH (09:15)
[2023-01-05] MEDS: NPH (HUMAN) 100 UNITS/ML INSULIN SQ SCH (09:16)
[2023-01-05] MEDS: LORATADINE 10 MG TAB PO SCH (09:16)
[2023-01-05] MEDS: carvediloL 12.5 MG TAB PO SCH (09:17)
[2023-01-05] MEDS: APIXABAN 2.5 MG TABLET PO SCH (09:17)
[2023-01-05] MEDS: allopurinoL 100 MG TAB PO SCH (09:17)
--- NOTE | 2023-01-05 10:18 | P.DS ---
Admission Date: 12/31/22 Discharge Date: 01/05/23 Disposition: DC HOME/HOME HEALTH CARE Discharge Condition: GOOD Reason for Admission: CHF exacerbation Consultations: Cardiology - Dr. Brown Nephrology - Dr. 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 She was referred here for direct admission for IV diuresis. 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 Nephrology and Cardiology were consulted. Patient was treated with IV lasix and had gradual improvement of her symptoms and leg swelling. She was noted to be anemic with severe iron deficiency. She takes oral iron tablets at home, but has not been sufficient. She received 2 doses of IV iron during her hospitalization. She is to continue her oral iron tablets. Repeat labs in a few months. On day of discharge, she reported breathing comfortably on her home O2 levels and ambulating in the room. She had some mild erythema in bilateral legs, but no evidence of infection. This improved as her edema improved. She is to continue wound care as she was at home. Continue home health, home PT She will need an outpatient Lexiscan down the road and needs to have her pacemaker checked down the road per Dr. Brown Prescription for Lasix 80 mg twice a day Otherwise continue home meds as previously prescribed. Follow up: PCP 3-5 days Cardiology 1 week Nephrology 1-2 weeks Physical Exam: GEN: Alert, oriented, NAD HEENT: Normal conjunctiva, sclera anicteric CV: Irregularly irregular heart rate and rhythm, Systolic murmur, 1+ edema b/l lower extremity Pulm: Nonlabored respirations on 3L NC at rest, diminished at bases b/l ABD: Soft, nontender, nondistended Integumentary: dressing in place b/l lower extremity, serosanguineous Neuro: Normal speech, normal affect Vital Signs/Physical Exam: Temp Pulse Resp BP Pulse Ox 96.9 F 78 18 127/58 L 100 01/05/23 08:00 01/05/23 09:17 01/05/23 08:00 01/05/23 09:17 01/05/23 08:00 Laboratory Data at Discharge: WBC 9.10 thou/uL (4.3-10.9) 01/05/23 04:33 Hgb 8.5 g/dL (12.0-15.0) L 01/05/23 04:33 Hct 27.0 % (36.0-45.0) L 01/05/23 04:33 Plt Count 261 thou/uL (152-406) 01/05/23 04:33 Sodium 138 mEq/L (136-145) 01/05/23 04:33 Potassium 4.1 mEq/L (3.5-5.1) 01/05/23 04:33 BUN 85 mg/dL (7-18) H 01/05/23 04:33 Creatinine 2.10 mg/dL (0.55-1.02) H 01/05/23 04:33 Glucose 200 mg/dL (74-106) H 01/05/23 04:33 Magnesium 2.5 mg/dL (1.6-2.4) H 01/05/23 04:33 Total Bilirubin 0.3 mg/dL (0.2-1.0) 01/05/23 04:33 AST 7 U/L (15-37) L 01/05/23 04:33 ALT 18 U/L (13-56) 01/05/23 04:33 Alkaline Phosphatase 87 U/L (45-117) 01/05/23 04:33 Triglycerides 116 mg/dL (<150) 01/01/23 02:26 Cholesterol 82 mg/dL (<200) 01/01/23 02:26 HDL Cholesterol 27 mg/dL (40-60) L 01/01/23 02:26 Cholesterol/HDL Ratio 3.04 01/01/23 02:26 Home Medications: Allopurinol 100 mg PO DAILY 06/23/20 Apixaban [Eliquis *] 2.5 mg PO BID 06/23/20 Atorvastatin Calcium 20 mg PO BEDTIME 06/23/20 Carvedilol [Coreg] 12.5 mg PO BID 06/23/20 Cholecalciferol (Vitamin D3) [Vitamin D3] 3,000 unit PO DAILY 06/23/20 Ferrous Sulfate [Iron] 325 mg PO TID 06/23/20 Loratadine [Claritin*] 10 mg PO DAILY 06/23/20 Melatonin 10 mg PO BEDTIME PRN 06/24/21 Apixaban [Eliquis] 5 mg PO BID 01/01/23 Digoxin [Lanoxin*] 0.125 mg PO DAILY 01/01/23 Lisinopril [Zestril] 2.5 mg PO DAILY 01/01/23 Furosemide 80 mg PO BID 60 Days #60 tab 01/05/23 New Medications: Furosemide 80 mg PO BID 60 Days #60 tab Physician Discharge Instructions: Patient presented with dyspnea on exertion, and was noted to be significantly volume overloaded 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 Nephrology and Cardiology were consulted. Patient was treated with IV lasix and had gradual improvement of her symptoms and leg swelling. She was noted to be anemic with severe iron deficiency. She takes oral iron tablets at home, but has not been sufficient. She received 2 doses of IV iron during her hospitalization. She is to continue her oral iron tablets. Repeat labs in a few months. On day of discharge, she reported breathing comfortably on her home O2 levels and ambulating in the room. She had some mild erythema in bilateral legs, but no evidence of infection. This improved as her edema improved. She is to continue wound care as she was at home. Continue home health, home PT She will need an outpatient Lexiscan down the road and needs to have her pacemaker checked down the road per Dr. Brown Prescription for Lasix 80 mg twice a day Otherwise continue home meds as previously prescribed. Follow up: PCP 3-5 days Cardiology 1 week Nephrology 1-2 weeks Time spent managing pt's care (in minutes): 45
[2023-01-05 11:06] VITALS: O2SAT 100
[2023-01-05 12:13] VITALS: BP 131/58; TEMP 97.8
--- NOTE | 2023-01-06 01:40 | PN ---
Date of Progress Note: 01/05/2023 Chief Complaint: CHF exacerbation. Subjective: The patient has multiple medical problems including history of diabetic kidney disease, chronic kidney disease stage 4, and cardiorenal syndrome. She presented to the hospital because of s hortness of breath. She is on home O2 with nasal cannula. She was found to have anasarca, worsening leg edema, and fluid overload. Chest x-ray showed congestive heart failure. The patient was starte d on diuretic and renal function has been fluctuating in the stable range. Fluid overload is gradual ly improving. The patient is to take Lasix 80 mg twice a day at home and to continue monitoring her daily weight. Review of Systems: Denies fever or chills. Physical Examination: Lungs: Normal respiratory effort. No crackles. Heart: S1, S2. Abdomen: Soft, benign. Extremities: Slight edema in both ankles. Impression And Plan: 1.Chronic kidney disease stage 4 secondary to cardiorenal syndrome and diabetes mellitus with glomer ulosclerosis. The serum creatinine today is ranging from 1.9 to 2.1. Electrolytes are stable. The patient is on diuretic for volume control and to treat acute-on chronic kidney injury with cardiorena l syndrome. 2.Hypertension, controlled. Continue to monitor blood pressure. 3.Iron-deficiency anemia, on IV iron. Transfuse if hemoglobin is below 7. 4.Secondary hyperparathyroidism. PTH, calcium, and phosphorus are at target range. EB/MODL Voice ID: [id number] Report ID: [id number]
== END 2023-01-05 13:15 | disposition home health service (06) | DRG 291 ==
LOC: 2ND 17:47
PROVIDERS: ADMIT Hospitalist; ATTEND Hospitalist
PROC: 30233N1 Transfusion of Nonautologous Red Blood Cells into Peripheral Vein, Percutaneous Approach (ICD-10-PCS; principal; 2023-01-04)
DX: I13.0 Hypertensive heart and chronic kidney disease with heart failure and stage 1 through stage 4 chronic kidney disease, or unspecified chronic kidney disease (principal); I50.23 Acute on chronic systolic (congestive) heart failure; N18.4 Chronic kidney disease, stage 4 (severe); Z68.43 Body mass index [BMI] 50.0-59.9, adult; N25.81 Secondary hyperparathyroidism of renal origin; E66.9 Obesity, unspecified; E11.22 Type 2 diabetes mellitus with diabetic chronic kidney disease; E11.40 Type 2 diabetes mellitus with diabetic neuropathy, unspecified; D63.1 Anemia in chronic kidney disease; D50.9 Iron deficiency anemia, unspecified; E78.5 Hyperlipidemia, unspecified; E03.9 Hypothyroidism, unspecified; I48.0 Paroxysmal atrial fibrillation; Z88.0 Allergy status to penicillin; Z79.4 Long term (current) use of insulin; Z88.1 Allergy status to other antibiotic agents; Z85.42 Personal history of malignant neoplasm of other parts of uterus; Z79.01 Long term (current) use of anticoagulants; Z99.81 Dependence on supplemental oxygen; Z98.51 Tubal ligation status; Z86.16 Personal history of COVID-19; Z79.899 Other long term (current) drug therapy; Z90.710 Acquired absence of both cervix and uterus; Z95.810 Presence of automatic (implantable) cardiac defibrillator
CPT/HCPCS: 36415; 71045; 80048; 80053; 80061; 81001; 82728; 82947; 83540; 83735; 83880; 84145; 84439; 84443; 84466; 84484; 85025; 86850; 86900; 86901; 86920; 87070; 87077; 87186; 87205; 93306; J1815; J1940; J2916; J7050; P9016

== ENCOUNTER 2023-01-12 20:43 | Inpatient (IN) | payer OTHER ==
--- OUTSIDE RECORDS SUMMARY | 2023-01-12 20:47 | XMS REPORT | Clinical Summary ---
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 08/07/2016 Sleep apnea 08/07/2016 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/06/2016 Cancer Staging: Clinical stage from 08/07: Stage IA (Primary) - Signed by Daly Lynn MD on 08/29/2016 Atrial fibrillation 08/06/2016 Diabetes mellitus 08/06/2016 Surgical History Surgery Date Site/Laterality Comments COLONOSCOPY Normal HYSTEROSCOPY 05/03/2016 TUBAL LIGATION Bilateral MT LAPAROSCOPY TOT 08/15/2016 N/A Procedure: RO BOTIC ASSISTED HYSTERECTOMY >250 G TOTAL HYSTER ECTOMY; Surgeon: W/TUBE/OVAR Daly gupta MD; Location: MAIN O R; Service: EMERGENCY GENERATOR MECHANIC - GYNECOLOGI C ONCOLOGY MT SALPINGO-OOPHORECTOMY 08/15/2016 Bilateral Procedu re: ROBOTIC ASSISTED COMPL/PRTL UNI/BI SPX SALPINGO-O OPHORECTOMY; Surgeon: Daly Lynn MD; Location: [place] [facility]; Service: EMERGENCY GENERATOR MECHANIC - G YNECOLOGIC ONCOLOGY MT INTRAOP SENTINEL LYMPH 08/15/2016 Bilateral Proced ure: INTRAOPERATIVE NODE ID W/DYE INJECTION LYMPHATI C MAPPING; ROBOTIC SENTINEL LYMPH N ODE MAPPING AND LYMPH NODE B IOPSY; Surgeon: Daly Lynn MD; Location: [place] [facility]; Service: EMERGENCY GENERATOR MECHANIC - G YNECOLOGIC ONCOLOGY Medical History Medical [...] Vaccination (#1) 04/03/1951 Results Not on fileafter 01/12/2022 Insurance Payer Benefit Plan / Subscriber ID Effective Phone Address T ype Group Dates MEDICARE MEDICARE PART [id number] 2017-Pres [phone] [facility] Medicare A AND B ent [id number] [employer] [address] [facility] [place] [address] [facility] [id number] 2014-Pres [address] MEDICARE ent [id number] [place] [address] Advance Directives Code Status Date Activated Date Inactivated Comments Full Code 08/15/2016 10:41 AM 08/16/2016 1:29 PM Care Teams 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
--- OUTSIDE RECORDS SUMMARY | 2023-01-12 20:56 | XMS REPORT | Continuity of Care Document ---
:1950 Author Organization [facility] t Address [address] [place] [address] [address] [place] [address] Care Team Providers Name Role Phone William Gustavo Primary Care Physician [phone] FABIAN LOPEZ Attending Clinician Unavailable FABIAN LOPEZ Attending Clinician Unavailable AFSHAN GARIBAY Attending Clinician Unavailable AFSHAN GARIBAY Attending Clinician Unavailable 1, [facility] Sleep Lab Bed Attending Clinician Unavailable Afshan Garibay MD Attending Clinician Doctor Unassigned, [place] Attending Clinician Unavailable Only, [facility] Test Attending Clinician Unavailable Nataliia Perez MD Attending Clinician NATALIIA PEREZ Attending Clinician Unavailable Giovanna ELDRIDGE, Lupe Attending Clinician iMchael Raymond DO Attending Clinician Craissa POWERS, Acacia Attending Clinician MICHAEL RAYMOND Attending [...] Number Effective Date Expiration Date S yury [facility] [id number] 2014 2024 00:00:00 00:00:00 MEDICARE PART A [id number] 2017 \\T\\ B 00:00:00 [facility] [id number] 2021 00:00:00 MEDICARE PART A [id number] 2017 AND B 00:00:00 [facility]IC[facility] [id number] 2014 SUPPLEMENT 00:00:00 Problems Condition Condition Condition [...] 9-20 it y of is is 00:00: [place] [address] Medical Branch Atrial Atrial Disease Active Univers fibrillati fibrillati 9-20 it y of on on 00:00: [place] [address] Medical Branch DM DM Disease Active Univers (diabetes (diabetes 9-20 ity of mellitus) mellitus) [place] 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-20 ity of kidney kidney 00:00: [place] disease disease 00 Medical Branch Acute Acute Disease Active Univers congestive congestive 918 it y of heart heart 00:00: [place] failure, failure, 00 Medica l unspecifie unspecifie Br anch d heart d heart failure failure type type Complicati Complicati Disease Active U T on of of 05-03 Health arterioven arterioven 00:00: ous ous 00 dialysis [...] to 00 excess excess Leda calories calories [facility] Peripheral Peripheral Disease Active U nivers edema edema 6- ity of 00:00: [place] 00 MD [facility] Essential Essential Disease Active 2015-09 Uni vers (primary) (primary) 2 ity of hypertensi hypertensi 00:[place] [facility] [place] 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 current 2- ity of use of use of 00:00: [place] anticoagul anticoagul 00 ant ant [facility] [place] Sleep Sleep Disease Active 2015-09 Univers apnea apnea 2- ity of 00:00: [place] 00 MD [facility] Malignant Malignant Disease Active 2015-09 Uni vers neoplasm neoplasm 1-30 ity of of of 00:00: [place] endometriu endometriu 00 MD sara [facility] [place] Atrial Atrial Disease Active 2015-09 Univers fibrillati fibrillati 1-30 it y of on on 00:00: [place] 00 MD [facility] Diabetes Diabetes Disease Active 2015-09 Unive rs mellitus mellitus 1-30 ity of 00:00: [place] 00 MD [facility]eda [facility] [place] SARS-CoV-2 SARS-CoV- Diagnosis Active 2021-11-05 Memoria vaccinatio 2 18:54:47 l n vaccinatio Guru n n [...] vers HOXAZOLE INGREDI 9-18 ity of 00:00: [place] 00 Medical Branch Amoxicil Propensi Active Anaphylaxis 2020-0 U nivers anna ty to 9-18 ity of adverse 00:00: [place] reaction 00 Medical s Branch Sulfamet Propensi Active Anaphylaxis 2020-0 U nivers hoxazole ty to 9-18 ity of adverse 00:00: [place] reaction 00 Medical s Branch sulfamet DA Active [facility] hoxazole 05-08 [place] 00:00: Health [address] trimetho DA Active [facility] prim 05-08 [place] 00:00: Health are [facility] st amoxicil DA Active U [facility] anna 05-08 [place] 00:00: Health are [facility] st sulfamet DA Active U [facility] 0 [facility] hoxazole 05-08 [place] 00:00: Health [address] trimetho DA Active U [facility] prim 05-08 [place] 00:00: Health [facility] amoxicil DA Active U [facility] anna 05-08 [place] 00:00: Health 00 [address] [facility] [address] Amoxicil Amoxicil Active Low Itching 2015-09 Memor ia anna anna 1-30 l 00:00: [place] 00 Amoxicil Propensi Active Itching 2015-09 Unive [...] Stop Date Source Maternal [facility] [place] [facility]aternal grandmother Stroke Univ [facility] mother Stroke [facility] Maternal aunt -Breast cancer Univers ity of [facility] Social History Social Habit Start Date Stop Date Quantity Comments Source Exposure to Not sure University SARS-CoV-2 [facility] (event) Branch Education 2021-05-25 2021-05-25 14 University of 00:00:00 00:00:00 [facility] Tobacco use and 2021-05-08 2021-05-08 Smokeless tobacco [facility] exposure 00:00:00 00:00:00 non-user Alcohol intake 2019-06-02 2019-06-02 Current University 00:00:00 00:00:00 non-drinker of [facility] Tobacco Comment 2016-08-06 2016-08-06 has had Universit y of 00:00:00 00:00:00 secondhand smoke [place] [facility] Sex Ass[birth year] At [birth year] Universit y of 00:00:00 00:00:00 [facility] Smoking Status Start Date Stop Date Source Social History [facility] Medications Ordered Filled Start Stop Current Ordering Indication Dosage Frequency Signature Comments Components Source Medication Medication Date Date Medication? Clinician (SIG) Name Name Humalog No unit/mL KwikPen 8-04 (U-100) 00:00: Insulin 100 00 unit/mL subcutaneou s Humalog No unit/mL KwikPen 8-04 (U-100) 00:00: Insulin 100 00 unit/mL subcutaneou s allopurinol 2021-0 No 1mg 100 mg 7-23 tablet 00:00: 00 allopurinol 2021-0 No 1mg 100 mg - tablet 00:00: 00 Dose 2-0 No Unknown 7 00:00: 00 Dose 2-0 No Unknown 7 00:00: 00 Dose 2-0 No Unknown 7- 00:00: 00 Dose 2-0 No Unknown 7 00:00: 00 Dose 2-0 No Unknown 7 00:00: 00 Dose 2-0 No Unknown 7- 00:00: 00 Dose 2-0 No Unknown 7- [...] 7- 00:00: 00 Dose 2-0 No Unknown 7- 00:00: 00 Victoza 2021-0 [...] 00 mL) subcutaneou s pen injector Victoza 2022-0 No (18 3-Trena 0.6 3-22 [...] 3-09 00:00: 00 Dose 2022-0 No Unknown 3- 00:00: 00 Dose 2021-0 No Unknown 3 [...] by mouth l mg tablet 18:54: twice [place] 47 daily. furosemide Yes Take 40 mg M emoria (LASIX) 40 3-01 by mouth l mg tablet 18:54: twice [place] 47 daily. 40mg in AM, 20mg in [...] mg by l 2.5 mg 18:54: mouth [place] tablet 47 twice daily. cloNIDine Yes Take [...] by mouth l 20 mg 18:54: daily. [place] tablet 47 allopurinol Yes Take 100 Me moria (ZYLOPRIM) 3-01 mg by l 100 mg 18:54: mouth [place] tablet 47 daily. amiodarone Yes Take 200 Mem oria (PACERONE) 3-01 mg by l 200 mg 18:54: mouth [place] tablet 47 daily. fluticasone Yes Inhale 1 Me mor[place] (FLONASE) 3-01 spray into l 50 18:54: each [place] mcg/spray 47 nostril nasal spray daily. loratadine Yes Take 10 mg M emoria (CLARITIN) 3-01 by mouth l 10 mg 18:54: daily. [place] tablet 47 spironolact No 1mg one 25 [...] by mouth ity of 01:48: once now. [place] 05 Give 1 Medical tablet by Branch [...] 2 [place] capsule 05 (two) Medical times [place] daily. carvediloL Yes 25mg Take 25 mg U nivers (COREG) 25 9-28 by mouth ity o f mg tablet 01:48: once now. as Give 1 Medical tablet by Branch [...] en 06-04 mouth. ity of (TYLENOL) 01:48: [place] 325 mg Cap 05 Medical Branch allopurinoL [...] 2 [place] capsule 05 (two) Medical times [place] daily. carvediloL Yes 25mg Take 25 mg U nivers (COREG) 25 9-28 by mouth ity o f mg tablet 01:48: once now. as 05 Give 1 Medical tablet by Branch mouth every 12 hours for HTN melatonin 3 Yes 3mg Take 3 mg U nivers mg tablet - by mouth ity of 01:48: once now. [...] mouth at bedtime for Insomnia insulin NPH 0 Yes 40U inject 40 U nivers hum/reg 9-28 Units ity of insulin hm 01:48: [place] (NOVOLIN 05 skin. ( Medical 70/30 SC) insulin Branch Isophane and Regular) Inject 40 units SC before meals for DM acetaminoph Yes Take by Un uri en 06-04 mouth. ity of (TYLENOL) 01:48: [...] mouth 2 capsule 05 (two) Medical times [place] daily. carvediloL Yes 25mg Take 25 mg [...] en - mouth. ity of (TYLENOL) 01:48: [place] 325 mg Cap 05 Medical Branch allopurinoL [...] mouth 2 capsule 05 (two) Medical times [place] daily. carvediloL Yes 25mg Take 25 mg [...] 2 [place] capsule 05 (two) Medical times [place] daily. carvediloL Yes 25mg Take 25 mg [...] 2 [place] 06 :00 (two) Medical times [place] daily. AMLODIPINE 2020- No 5mg 5 mg. Unive rs BESYLATE, 06-01 Tablet by ity of BULK, MISC 10:34: 00:00 mouth two [place] 06 :00 times a Medical day for Branch pulmonary Edema acetaminoph Yes 650mg 650 mg, Un uri en 06-01 Oral, ity of (TYLENOL) 01:44: Q6HPRN, [place] tablet 650 28 Starting Medic al mg on Thu Branch 05/31/21 at 2044, Until Discontinu ed, Routine, Pain (scale 1-3) apixaban 5 2020- No 1358 5mg Take 1 Univ ers mg tablet 06-01 tablet by ity of 00:00: 04:59 mouth 2 [place] 00 :00 (two) Medical times Branch daily for 30 days. Indication s: atrial fibrillati on furosemide 2020- No [id number] 80mg Take 1 Univers 80 mg -01 [...] s: atrial fibrillati on furosemide 2020- No [id number] 80mg Take 1 Univers 80 mg -01 [...] s: atrial fibrillati on furosemide 2020- No [id number] 80mg Take 1 Univers 80 mg 9-25 [...] mg 01:00: First dose [place] 00 on [facility] 05/28/21 at Branch 2000, Until Discontinu ed, Routine levoFLOXaci No 250mg 250 mg, U nivers n 05-28 Oral, ity of (LEVAQUIN) 12:00: 16:14 Q48H, [place] tablet 250 00 :00 First dose Med ical mg on [place] 05/28/21 at 0700, Until Discontinu ed, AMANDA
Re ason for Anti-Infec tive: Documented Infection< br>Documen cathy Infection Site: Urine
D uration of Therapy: 7 days sulfur 2020- No [id number] 5mL 5 mL, [facility] rs hexafluorid 05-27 Intravenou i ty of e microsphr 18:15: 18:07 s, ONCE, 1 [place] (LUMASON) 00 :00 dose, On Medica l injection 5 Thu [place] mL 05/27/21 at 1315, Routine
prepared foods production team member approving Restricted medication : PRIYA MOLINA zolpidem [...] Rang e, Dosing and Testing: &nbs p;FOR [place], [facility], AND [facility] ONLY - aPTT < 35: & nbsp;Bolus [...] Starting [place] mL vial) 34 :17 on [facility] 05/26/21 at Branch Rebolusing 1248, Until 05/28/21 at 1121, Routine
Dosing based on aPTT testing parameters (refer to continuous heparin drip order).
heparin 2020- No 5000U 5,000 Univers 1000 05-26 Units, IV ity of unit/mL 17:45: 19:23 Push, [place] injection 00 :00 ONCE, 1 Medical Soln 5,000 dose, On Branc h Units [place] 05/26/21 at 1245, Routine allopurinoL Yes 100mg 100 mg, Un uri (ZYLOPRIM) 05-26 Oral, ity of tablet 100 14:00: DAILY, [place] mg 00 First dose Medical on [facility] 05/26/21 at 0900, Until Discontinu ed, Routine enoxaparin No 40mg 40 mg, Univ ers (LOVENOX) 05-26 Subcutaneo ity of injection 14:00: 17:42 us, DAILY, [place] 40 mg 00 :50 First dose Medical on [facility] 05/26/21 at 0900, Until Discontinu ed, Routine acetaminoph 2020- No 500mg 500 mg, U nivers en 05-26 Oral, ity of (TYLENOL) 12:15: 11:20 ONCE, 1 [place] tablet 500 00 :00 dose, On Medic al mg [facility] 05/26/21 at 0715, Routine levoFLOXaci No 500mg 500 mg, IV Univers n in D5W 05-26 Piggyback, ity of (LEVAQUIN) 11:00: 15:14 Q24H ABX, [place] 500 mg/100 00 :04 First dose Med ical mL on [facility] Piggyback 05/26/21 at 500 mg 0600, Until Discontinu ed, Administer over 60 Minutes, 100 mL
Reas on for Anti-Infec tive: Documented Infection< br>Documen cathy Infection Site: Urine
D uration of Therapy: 7 days melatonin Yes 3mg 3 mg, Univers (MELATIN) 05-26 Oral, ity of tablet 3 mg 01:18: QHSPRN, [place] as 41 Starting Medical on [facility] Branch 05/25/21 at 2018, Until Discontinu ed, Routine, Insomnia docusate Yes 100mg 100 mg, Unive rs (COLACE) 05-26 Oral, BID, ity o f capsule 100 01:00: First dose [place] mg 00 on [facility] Medical 05/25/21 at Branch 2000, Until Discontinu ed, Routine insulin NPH Yes 40U 40 Units, U nivers and regular 05-25 Subcutaneo it y of human 70-30 22:00: us, [place] (HUMULIN 00 QAM+PM, Medical 70-30 U-100 First dose Br anch INSULIN) on [facility] 100 unit/mL 05/25/21 at (70-30) 1700, injection Until 40 Units Discontinu ed Sliding Yes Subcutaneo Univ ers Scale 05-25 us, AC+HS, ity of Insulin-Reg 21:30: First dose [place] ular + Fsbg 00 on [facility] Medica l Testing 05/25/21 at Branch 1630, Until Discontinu ed, Routine carvediloL 2020- No 25mg 25 mg, Univ ers (COREG) 05-25 Oral, ity of tablet 25 19:15: 22:45 ONCE, 1 [place] mg 00 :00 dose, On Medical [facility] 05/25/21 at 1415, Routine atorvastati 2020- No 10mg 10 mg, Uni vers n (LIPITOR) 05-25 Oral, ity of tablet 10 19:15: 20:04 ONCE, 1 [place] mg 00 :00 dose, On Medical [facility] 05/25/21 at 1415, Routine glucagon Yes 1mg 1 mg, Univers (GLUCAGEN 05-25 Intramuscu ity of DIAGNOSTIC 18:03: lar, PRN, [place] KIT) 31 Starting Medical injection 1 on [facility] 05/25/21 at 1303, Until Discontinu ed, [...] 0.2 mg -02 tablet 00:00: 00 spironolact 2020-0 No 1mg one 25 mg -02 tablet [...] -02 tablet 00:00: 00 nystatin 2019-0 Yes Apply Memoria (MYCOSTATIN 9-26 topically l ) 100,000 00:00: to [place] units/g 00 affected powder area(s) twice daily. nystatin Yes Candidiasis Apply U nivers (MYCOSTATIN 9-26 of skin topically ity of ) 100,000 00:00: to [place] units/g 00 affected MD powder area(s) Anders[place] twice n daily. [facility] nystatin Yes Candidiasis Apply U nivers (MYCOSTATIN 9-26 of skin topically ity of ) 100,000 00:00: to [place] units/g 00 affected MD powder area(s) Anderso twice n daily. [facility] nystatin Yes Candidiasis Apply U nivers (MYCOSTATIN 9-26 of skin topically ity of ) 100,000 00:00: to [place] units/g 00 affected MD powder area(s) Anderso twice n daily. [facility] nystatin Yes Candidiasis Apply U nivers (MYCOSTATIN 9-26 of skin topically ity of ) 100,000 00:00: to [place] units/g 00 affected MD powder area(s) Anderso twice n daily. [facility] nystatin Yes Candidiasis Apply U nivers (MYCOSTATIN 9-26 of skin topically ity of ) 100,000 00:00: to [place] units/g 00 affected MD powder area(s) Anderso twice n daily. [facility] nystatin Yes Candidiasis Apply U nivers (MYCOSTATIN 9-26 of skin topically ity of ) 100,000 00:00: to [place] units/g 00 affected MD powder area(s) Anderso twice n daily. [facility] nystatin Yes Candidiasis Apply U nivers (MYCOSTATIN 9-26 of skin topically ity of ) 100,000 00:00: to [place] units/g 00 affected MD powder area(s) Anderso twice n daily. [facility] carvedilol Yes 25mg Take 25 mg U nivers (COREG) 25 9-25 by mouth ity o f mg tablet 15:41: twice [place] 40 daily. Anderso n [facility] furosemide Yes 40mg Take 40 mg U nivers (LASIX) 40 9-25 by mouth ity o f mg tablet 15:41: twice [place] 40 daily. MD 40mg in [place] AM, 20mg n in PM Cancer [facility] INSULIN NPH 2018- Yes 45U Inject 45 U nivers HUMAN 9-25 Units ity of ISOPHANE 15:41: under the [place] (NOVOLIN N 40 skin twice MD SUBCUTANEOU daily. 45 And erso S) units in n AM and 40 Cancer units at Center bedtime LIRAGLUTIDE Yes 1.8mg Inject 1.8 Univers (VICTOZA 9-25 mg under ity of 2-TRENA 15:41: the skin [place] SUBCUTANEOU 40 daily. MD Lentz) [facility] cholecalcif Yes 2000U Take 2,000 Univers stefania, 9-25 Units by ity of vitamin D3, 15:41: mouth [place] (VITAMIN 40 daily. D3) 2,000 Anderso units tab n tablet [facility] apixaban Yes 2.5mg Take 2.5 Univ ers (ELIQUIS) 9-25 mg by ity of 2.5 mg 15:41: mouth [place] tablet 40 twice MD daily. [facility] cloNIDine Yes .2mg Take 0.2 Univ ers HCl 9-25 mg by ity of (CATAPRES) 15:41: mouth [place] 0.2 mg 40 twice MD tablet daily. [facility] ferrous Yes 37mg Take 37 mg Univ ers gluconate 9-25 by mouth ity of (FERGON) 15:41: daily with [place] as 325 mg 40 breakfast. MD sawant [facility] atorvastati Yes 20mg Take 20 mg Univers n (LIPITOR) 9-25 by mouth ity of 20 mg 15:41: daily. [place] tablet 40 [facility] allopurinol Yes 100mg Take 100 U nivers (ZYLOPRIM) 9-25 mg by ity of 100 mg 15:41: mouth [place] tablet 40 daily. [facility] amiodarone Yes 200mg Take 200 Un uri (PACERONE) 9-25 mg by ity of 200 mg 15:41: mouth [place] tablet 40 daily. [facility] fluticasone 0 Yes 1{spray Inhale 1 Univers (FLONASE) 9-25 } spray into ity of 50 15:41: each [place] mcg/spray 40 nostril nasal spray daily. [facility] loratadine Yes 10mg Take 10 mg U nivers (CLARITIN) 9-25 by mouth ity o f 10 mg 15:41: daily. [place] tablet 40 [facility] carvedilol Yes 25mg Take 25 mg U nivers (COREG) 25 9-25 by mouth ity o f mg tablet 15:41: twice [place] 40 daily. [facility] furosemide Yes 40mg Take 40 mg [...] the skin [place] SUBCUTANEOU 40 daily. S) [facility] cholecalcif Yes 2000U Take 2,000 Univers stefania, 9-25 Units by ity of vitamin D3, 15:41: mouth [place] (VITAMIN 40 daily. D3) 2,000 Anderso units tab n tablet [facility] apixaban Yes 2.5mg Take 2.5 Univ ers (ELIQUIS) 9-25 mg by ity of 2.5 mg 15:41: mouth [place] tablet 40 twice MD daily. [facility] cloNIDine Yes .2mg Take 0.2 Univ ers HCl 9-25 mg by ity of (CATAPRES) 15:41: mouth [place] 0.2 mg 40 twice MD tablet daily. [facility] ferrous Yes 37mg Take 37 mg Univ ers gluconate 9-25 by mouth ity of (FERGON) 15:41: daily with [place] as 325 mg 40 breakfast. tablet [facility] atorvastati Yes 20mg Take 20 mg Univers n (LIPITOR) 9-25 by mouth ity of 20 mg 15:41: daily. [place] tablet 40 [facility] allopurinol Yes 100mg Take 100 U nivers (ZYLOPRIM) 9-25 mg by ity of 100 mg 15:41: mouth [place] tablet 40 daily. [facility] amiodarone Yes 200mg Take 200 Un uri (PACERONE) 9-25 mg by ity of 200 mg 15:41: mouth [place] tablet 40 daily. [facility] fluticasone Yes 1{spray Inhale 1 Univers (FLONASE) 9-25 } spray into ity of 50 15:41: each [place] mcg/spray 40 nostril nasal spray daily. [facility] loratadine Yes 10mg Take 10 mg U nivers (CLARITIN) 9-25 by mouth ity o f 10 mg 15:41: daily. [place] tablet 40 [facility] carvedilol Yes 25mg Take 25 mg U nivers (COREG) 25 9-25 by mouth ity o f mg tablet 15:41: twice [place] 40 daily. [facility] furosemide Yes 40mg Take 40 mg [...] skin [place] SUBCUTANEOU 40 daily. MD Lentz) [facility] cholecalcif Yes 2000U Take 2,000 Univers stefania, 9-25 Units by ity of vitamin D3, 15:41: mouth [place] (VITAMIN 40 daily. D3) 2,000 Anderso units tab n tablet Cancer Center apixaban Yes 2.5mg Take 2.5 Univ ers (ELIQUIS) 9-25 mg by ity of 2.5 mg 15:41: mouth [place] tablet 40 twice MD daily. [facility] cloNIDine Yes .2mg Take 0.2 Univ ers HCl 9-25 mg by ity of (CATAPRES) 15:41: mouth [place] 0.2 mg 40 twice MD tablet daily. [facility] ferrous Yes 37mg Take 37 mg Univ ers gluconate 9-25 by mouth ity of (FERGON) 15:41: daily with [place] as 325 mg 40 breakfast. tablet [facility] atorvastati Yes 20mg Take 20 mg Univers n (LIPITOR) 9-25 by mouth ity of 20 mg 15:41: daily. [place] tablet 40 [facility] allopurinol Yes 100mg Take 100 U nivers (ZYLOPRIM) 9-25 mg by ity of 100 mg 15:41: mouth [place] tablet 40 daily. [facility] amiodarone Yes 200mg Take 200 Un uri (PACERONE) 9-25 mg by ity of 200 mg 15:41: mouth [place] tablet 40 daily. [facility] fluticasone Yes 1{spray Inhale 1 Univers (FLONASE) 9-25 } spray into ity of 50 15:41: each [place] mcg/spray 40 nostril nasal spray daily. [facility] loratadine Yes 10mg Take 10 mg U nivers (CLARITIN) 9-25 by mouth ity o f 10 mg 15:41: daily. [place] tablet 40 [facility] carvedilol Yes 25mg Take 25 mg U nivers (COREG) 25 9-25 by mouth ity o f mg tablet 15:41: twice [place] 40 daily. [facility] furosemide Yes 40mg Take 40 mg U nivers (LASIX) 40 9-25 by mouth ity o f mg tablet 15:41: twice [place] 40 daily. 40mg in Anderso AM, 20mg n in PM [facility] INSULIN NPH Yes 45U Inject 45 [...] skin [place] SUBCUTANEOU 40 daily. MD Lentz) [facility] cholecalcif Yes 2000U Take 2,000 Univers stefania, 9-25 Units by ity of vitamin D3, 15:41: mouth [place] (VITAMIN 40 daily. D3) 2,000 Anderso units tab n tablet [facility] apixaban Yes 2.5mg Take 2.5 Univ ers (ELIQUIS) 9-25 mg by ity of 2.5 mg 15:41: mouth [place] tablet 40 twice MD daily. [facility] cloNIDine Yes .2mg Take 0.2 Univ ers HCl 9-25 mg by ity of (CATAPRES) 15:41: mouth [place] 0.2 mg 40 twice MD tablet daily. [facility] ferrous Yes 37mg Take 37 mg Univ ers gluconate 9-25 by mouth ity of (FERGON) 15:41: daily with [place] as 325 mg 40 breakfast. MD sawant [facility] atorvastati Yes 20mg Take 20 mg Univers n (LIPITOR) 9-25 by mouth ity of 20 mg 15:41: daily. [place] tablet 40 [facility] allopurinol Yes 100mg Take 100 U nivers (ZYLOPRIM) 9-25 mg by ity of 100 mg 15:41: mouth [place] tablet 40 daily. [facility] amiodarone Yes 200mg Take 200 Un uri (PACERONE) 9-25 mg by ity of 200 mg 15:41: mouth [place] tablet 40 daily. [facility] fluticasone 0 Yes 1{spray Inhale 1 Univers (FLONASE) 9-25 } spray into ity of 50 15:41: each [place] mcg/spray 40 nostril nasal spray daily. [facility] loratadine 2019-0 Yes 10mg Take 10 mg U nivers (CLARITIN) 9-25 by mouth ity o f 10 mg 15:41: daily. [place] tablet 40 [facility] carvedilol Yes 25mg Take 25 mg U nivers (COREG) 25 9-25 by mouth ity o f mg tablet 15:41: twice [place] 40 daily. [facility] furosemide Yes 40mg Take 40 mg U nivers (LASIX) 40 9-25 by mouth ity o f mg tablet 15:41: twice [place] 40 daily. MD 40mg in Anderso AM, 20mg n in [...] skin [place] SUBCUTANEOU 40 daily. MD Lentz) [facility] cholecalcif Yes 2000U Take 2,000 Univers stefania, 9-25 Units by ity of vitamin D3, 15:41: mouth [place] (VITAMIN 40 daily. D3) 2,000 Anderso units tab n tablet Cancer [place] apixaban Yes 2.5mg Take 2.5 Univ ers (ELIQUIS) 9-25 mg by ity of 2.5 mg 15:41: mouth [place] tablet 40 twice MD daily. [facility] cloNIDine Yes .2mg Take 0.2 Univ ers HCl 9-25 mg by ity of (CATAPRES) 15:41: mouth [place] 0.2 mg 40 twice MD tablet daily. [facility] ferrous Yes 37mg Take 37 mg Univ ers gluconate 9-25 by mouth ity of (FERGON) 15:41: daily with Gianni as 325 mg 40 breakfast. MD sawant [facility] atorvastati Yes 20mg Take 20 mg Univers n (LIPITOR) 9-25 by mouth ity of 20 mg 15:41: daily. [place] tablet 40 [facility] allopurinol Yes 100mg Take 100 U nivers (ZYLOPRIM) 9-25 mg by ity of 100 mg 15:41: mouth [place] tablet 40 daily. MD Leda quevedo [facility] amiodarone Yes 200mg Take 200 Un uri (PACERONE) 9-25 mg by ity of 200 mg 15:41: mouth [place] tablet 40 daily. MD Leda quevedo [facility] [facility] fluticasone Yes 1{spray Inhale 1 Univers (FLONASE) 9-25 } spray into ity of 50 15:41: each [place] mcg/spray 40 nostril nasal spray daily. [facility] loratadine Yes 10mg Take 10 mg U nivers (CLARITIN) 9-25 by mouth ity o f 10 mg 15:41: daily. [place] tablet 40 [facility] carvedilol Yes 25mg Take 25 mg U nivers (COREG) 25 9-25 by mouth ity o f mg tablet 15:41: twice [place] 40 daily. MD Leda quevedo [facility] furosemide Yes 40mg Take 40 mg [...] the skin [place] SUBCUTANEOU 40 daily. S) [facility] cholecalcif Yes 2000U Take 2,000 Univers stefania, 9-25 Units by ity of vitamin D3, 15:41: mouth [place] (VITAMIN 40 daily. D3) 2,000 Anderso units tab n tablet Cancer [place] apixaban Yes 2.5mg Take 2.5 Univ ers (ELIQUIS) 9-25 mg by ity of 2.5 mg 15:41: mouth [place] tablet 40 twice MD daily. [facility] cloNIDine Yes .2mg Take 0.2 Univ ers HCl 9-25 mg by ity of (CATAPRES) 15:41: mouth [place] 0.2 mg 40 twice MD tablet daily. [facility] ferrous Yes 37mg Take 37 mg Univ ers gluconate 9-25 by mouth ity of (FERGON) 15:41: daily with Gianni as 325 mg 40 breakfast. tablet [facility] atorvastati Yes 20mg Take 20 mg Univers n (LIPITOR) 9-25 by mouth ity of 20 mg 15:41: daily. [place] tablet 40 [facility] allopurinol Yes 100mg Take 100 U nivers (ZYLOPRIM) 9-25 mg by ity of 100 mg 15:41: mouth [place] tablet 40 daily. [facility] amiodarone Yes 200mg Take 200 Un uri (PACERONE) 9-25 mg by ity of 200 mg 15:41: mouth [place] tablet 40 daily. [facility] fluticasone Yes 1{spray Inhale 1 Univers (FLONASE) 9-25 } spray into ity of 50 15:41: each [place] mcg/spray 40 nostril nasal spray daily. [facility] loratadine Yes 10mg Take 10 mg U nivers (CLARITIN) 9-25 by mouth ity o f 10 mg 15:41: daily. [place] tablet 40 [facility] carvedilol Yes 25mg Take 25 mg U nivers (COREG) 25 9-25 by mouth ity o f mg tablet 15:41: twice [place] 40 daily. [facility] furosemide Yes 40mg Take 40 mg [...] skin [place] SUBCUTANEOU 40 daily. MD Lentz) [facility] cholecalcif Yes 2000U Take 2,000 Univers stefania, 9-25 Units by ity of vitamin D3, 15:41: mouth [place] (VITAMIN 40 daily. D3) 2,000 Anderso units tab n tablet [facility] apixaban Yes 2.5mg Take 2.5 Univ ers (ELIQUIS) 9-25 mg by ity of 2.5 mg 15:41: mouth [place] tablet 40 twice MD daily. [facility] cloNIDine Yes .2mg Take 0.2 Univ ers HCl 9-25 mg by ity of (CATAPRES) 15:41: mouth [place] 0.2 mg 40 twice MD tablet daily. [facility] ferrous Yes 37mg Take 37 mg Univ ers gluconate 9-25 by mouth ity of (FERGON) 15:41: daily with Gianni as 325 mg 40 breakfast. tablet [facility] atorvastati Yes 20mg Take 20 mg Univers n (LIPITOR) 9-25 by mouth ity of 20 mg 15:41: daily. [place] tablet 40 [facility] allopurinol Yes 100mg Take 100 U nivers (ZYLOPRIM) 9-25 mg by ity of 100 mg 15:41: mouth [place] tablet 40 daily. [facility] amiodarone Yes 200mg Take 200 Un uri (PACERONE) 9-25 mg by ity of 200 mg 15:41: mouth [place] tablet 40 daily. [facility] fluticasone Yes 1{spray Inhale 1 Univers (FLONASE) 9-25 } spray into ity of 50 15:41: each [place] mcg/spray 40 nostril nasal spray daily. [facility] loratadine Yes 10mg Take 10 mg U nivers (CLARITIN) 9-25 by mouth ity o f 10 mg 15:41: daily. [place] tablet 40 [facility] apixaban Yes 2.5mg Take 2.5 [place] (Eliquis) [...] MG 00:00: mouth. tablet 00 spironolact Yes Take 1 Baldo hong one 2-07 tablet by l (ALDACTONE) 00:00: mouth 3 Her guerra 25 mg 00 (three) tablet times a week Thursday, Thursday and Thursday. spironolact Yes 1{tbl} Take 1 Un uri one 2-07 tablet by ity of (ALDACTONE) 00:00: mouth 3 Gianni as 25 mg 00 (three) MD tablet times a n Thursday, Cancer Thunes [place] and Thursday. spironolact Yes 1{tbl} Take 1 Un uri one 2-07 tablet by ity of (ALDACTONE) 00:00: mouth 3 Gianni as 25 mg 00 (three) MD tablet times a Thursday, Cancer Thunes [place] and Thursday. spironolact Yes 1{tbl} Take 1 Un uri one 2-07 tablet by ity of (ALDACTONE) 00:00: mouth 3 Gianni as 25 mg 00 (three) MD tablet times a n Thursday, Cancer Thursday [place] and Thursday. spironolact Yes 1{tbl} Take 1 Un uri one 2-07 tablet by ity of (ALDACTONE) 00:00: mouth 3 Gianni as 25 mg 00 (three) MD tablet times a Thursday, Cancer Thursday [place] and Thursday. spironolact Yes 1{tbl} Take 1 Un uri one 2-07 tablet by ity of (ALDACTONE) 00:00: mouth 3 Gianni as 25 mg 00 (three) MD tablet times a Thursday, Cancer Thursday [place] and Thursday. spironolact Yes 1{tbl} Take 1 Un uri one 2-07 tablet by ity of (ALDACTONE) 00:00: mouth 3 Gianni as 25 mg 00 (three) MD tablet times a Thursday, Cancer Thursday [place] and Thursday. spironolact Yes 1{tbl} Take 1 Un uri one 2-07 tablet by ity of (ALDACTONE) 00:00: mouth 3 Gianni as 25 mg 00 (three) MD tablet times a Thursday, Cancer Thursday [place] and Thursday. Immunizations Ordered Immunization Filled Immunization Date Status Commen ts Source Name Name Bereket ELLSWORTHID-19 2021-11-18 Completed Vaccine 00:00:00 Bereket COVID-19 2021-11-18 Completed Vaccine 00:00:00 [place] COVID-19 2020-11-03 Completed Vaccine 00:00:00 [place] COVID-19 2020-11-03 Completed Vaccine 00:00:00 [place] COVID-19 2020-10-06 Completed Vaccine 00:00:00 [place] COVID-19 2020-10-06 Completed Vaccine 00:00:00 Vital Signs Vital Name Observation Time Observation Value Comments Source Systolic blood 2021-06-04 01:12:00 135 mm[Hg] Univer sity pressure [facility] Diastolic blood 2021-06-04 01:12:00 69 mm[Hg] [facility] Heart rate 2021-06-04 01:12:00 82 /min [facility] Body temperature 2021-06-04 01:12:00 37.11 Lisette [facility] [place] [facility] Respiratory rate 2021-06-04 01:12:00 18 /min [facility] Oxygen saturation in 2021-06-04 01:12:00 97 /min [facility] blood by [facility] Pulse oximetry [place] Body weight 2021-05-30 10:00:00 135.535 kg [facility] BMI 2021-05-30 10:00:00 56.46 kg/m2 [facility] Body height 2021-05-25 15:00:00 154.9 cm [facility] BP Systolic 2022-09-22 15:08:00 143 mm[Hg] BP [...] DATA REPORT 2021-10-25 06:01:00 [facility] ASSIGNMENT OF BENEFITS 2021-09-27 21:01:17 Doctor Unassigned, Un [facility] Name Medical Branch EXTERNAL PROVIDER RECORDS 2021-06-21 05:01:00 Doctor Unassigned, [facility] [place] [facility] POCT GLUCOSE (AUTOMATED) 2021-06-03 17:07:00 Acacia Ferrer [facility] Medical [place] POCT GLUCOSE (AUTOMATED) 2021-06-03 13:21:00 EzAcacia sherman Hel[facility] EXTERNAL PROVIDER RECORDS 2021-06-03 05:01:00 Doctor Unassigned, [facility] [place] [facility] POCT GLUCOSE (AUTOMATED) 2021-06-03 01:09:00 [facility]) 2021-06-02 20:42:00 Ezzo, Acacia Uni [facility] POCT GLUCOSE (AUTOMATED) 2021-06-02 16:34:00 Ezzo, Acacia Uni [facility] POCT GLUCOSE (AUTOMATED) 2021-06-02 12:22:00 Ezzo, [facility] BASIC METABOLIC PANEL (NA, 2021-06-02 05:06:00 Gertrude Rosario [facility] K, CL, CO2, GLUCOSE, BUN, Medica l Branch CREATININE, CA) POCT GLUCOSE (AUTOMATED) 2021-06-02 02:37:00 EzzoAcacia Uni [facility] POCT GLUCOSE (AUTOMATED) 2021-06-02 01:12:00 Ezzo, [facility] POCT GLUCOSE (AUTOMATED) 2021-06-01 20:39:00 Ezzo, [facility] POCT GLUCOSE (AUTOMATED) 2021-06-01 16:47:00 Ezzo, Ali Uni [facility] POCT GLUCOSE (AUTOMATED) 2021-06-01 12:56:00 EzAcacia sherman [facility] MAGNESIUM 2021-06-01 10:37:[address] [facility] COMP. METABOLIC PANEL 2021-06-01 10:37:00 Rachna Hoang [facility] ([id number]) [facility] POCT GLUCOSE (AUTOMATED) 2021-06-01 01:43:00 Acacia Ferrer Uni [facility] POCT GLUCOSE (AUTOMATED) 2021-05-31 22:36:00 Acacia [facility]rer [facility] PROTEIN CREAT RATIO URINE 2021-05-31 19:58:00 Myles Rosario ra [facility] US RETROPERITONEAL LIMITED 2021-05-31 19:06:[address] [facility] POCT GLUCOSE (AUTOMATED) 2021-05-31 17:40:00 Ezzo, [facility] PO[facility]SE (AUTOMATED) 2021-05-31 13:22:00 Ezlane, Ali [facility] MAGNESIUM 2021-05-31 08:44:00 Rachna Hoang [facility] COMP. METABOLIC PANEL 2021-05-31 08:44:00 [facility] [address] ([id number] POCT GLUCOSE (AUTOMATED) 2021-05-31 02:01:00 Ezzo, Ali [facility] PO[facility] GLUCOSE (AUTOMATED) 2021-05-30 22:20:00 Ezzo, Ali [facility] POCT GLUCOSE (AUTOMATED) 2021-05-30 17:02:00 Ezzo, Ali [facility] POCT GLUCOSE (AUTOMATED) 2021-05-30 13:17:00 Carissa Ali Uni [facility] MAGNESIUM 2021-05-30 10:18:00 [facility]OLIC PANEL 2021-05-30 10:18:00 Viktor [facility] ([id number]) [facility] POCT GLUCOSE (AUTOMATED) 2021-05-30 01:58:00 Ezzo, Acacia [facility] POCT GLUCOSE (AUTOMATED) 2021-05-29 21:10:00 Ezzo, Ali [facility] POCT GLUCOSE (AUTOMATED) 2021-05-29 17:16:00 Ezzo, Ali [facility] POCT GLUCOSE (AUTOMATED) 2021-05-29 12:57:00 Ezzo, Ali Uni [facility] BASIC METABOLIC PANEL (NA, 2021-05-29 09:56:00 Tk Garcia [facility] K, CL, CO2, GLUCOSE, BUN, Medica l Branch CREATININE, CA) POCT GLUCOSE (AUTOMATED) 2021-05-29 03:08:00 Ezzo, [facility] POCT GLUCOSE (AUTOMATED) 2021-05-28 22:05:00 Ezzo, Ali Uni [facility] POCT GLUCOSE (AUTOMATED) 2021-05-28 17:39:00 Acacia [facility] BASIC METABOLIC PANEL (NA, 2021-05-28 14:49:00 Tk Garcia U [facility] K, CL, CO2, GLUCOSE, BUN, Medica l Branch CREATININE, CA) ACTIVATED PARTIAL THRMPLAS 2021-05-28 14:49:00 Rachna Hoang [facility] POCT GLUCOSE (AUTOMATED) 2021-05-28 13:55:00 Acacia Ferrer [facility] CBC WITH DIFF 2021-05-28 11:40:00 Tk Garcia o f [facility] ACTIVATED PARTIAL THRMPLAS 2021-05-28 03:40:00 Tk Garcia [facility] POCT GLUCOSE (AUTOMATED) 2021-05-28 01:50:00 Acacia [facility] POCT GLUCOSE (AUTOMATED) 2021-05-27 22:40:00 Acacia [facility] ACTIVATED PARTIAL THRMPLAS 2021-05-27 20:29:00 Tk Garcia [facility] TRANSTHORACIC ECHO (TTE) 2021-05-27 18:07:00 Rachna Hoang [facility] COMPLETE W/ CONTRAST [facility] PO[facility] GLUCOSE (AUTOMATED) 2021-05-27 16:58:00 Acacia Ferrer [facility] MAGNESIUM 2021-05-27 15:26:[address] [facility] BASIC METABOLIC PANEL (NA, 2021-05-27 15:26:00 Rachna Hoang [place] [facility] K, CL, CO2, GLUCOSE, BUN, Medica l Branch CREATININE, CA) POCT GLUCOSE (AUTOMATED) 2021-05-27 12:57:00 Acacia Ferrer [facility] EXTRA TUBE LT. GREEN 2021-05-27 10:52:00 Acacia Ferrer [facility] ACTIVATED PARTIAL THRMPLAS 2021-05-27 10:17:00 Dar Esquivel [facility] ACTIVATED PARTIAL THRMPLAS 2021-05-27 01:58:00 Rachna [facility]ang [facility] EXTRA TUBE LAV 2021-05-27 01:58:00 Acacia Ferrer o [facility] POCT GLUCOSE (AUTOMATED) 2021-05-27 00:50:00 Acacia [facility] POCT GLUCOSE (AUTOMATED) 2021-05-26 21:53:00 Acacia [facility]rer [facility] ACTIVATED PARTIAL THRMPLAS 2021-05-26 18:25:00 Rachna Hoang [facility] POCT GLUCOSE (AUTOMATED) 2021-05-26 16:43:00 [facility] POCT GLUCOSE (AUTOMATED) 2021-05-26 13:16:00 [facility] BASIC METABOLIC PANEL (NA, 2021-05-26 11:00:00 Robert Ji, Crystal n [facility] K, CL, CO2, GLUCOSE, BUN, Medica l Branch CREATININE, CA) CBC WITH DIFF 2021-05-26 11:00:00 Lotus Almeida [facility] GLYCOSYLATED HEMOGLOBIN 2021-05-26 11:00:00 Rachna [facility]ang [facility] (A[facility] POCT GLUCOSE (AUTOMATED) 2021-05-26 01:59:00 [facility] POCT GLUCOSE (AUTOMATED) 2021-05-25 21:43:00 [facility] MRSA / MSSA SCREEN BY PCR, 2021-05-25 20:30:00 Acacia Ferrer [facility] COVID-19 (ID NOW RAPID 2021-05-25 11:33:00 Michael Raymond [facility] TESTING) Medical Branch LAB ONLY COVID 2021-05-25 11:33:00 Michael Raymond [facility] URINALYSIS 2021-05-25 11:25:00 Singer [facility] HB ECG ROUTINE & RHYTHM 2021-05-25 10:45:01 Michael Raymond [facility] STRIP [facility] Branch XR CHEST 1 VW 2021-05-25 10:44:22 Singer [facility] BLOOD CULTURE SCREEN 2021-05-25 10:37:00 Michael Raymond [facility] BLOOD CULTURE WORKUP 2021-05-25 10:37:00 Michael Raymond [facility] GRAM POSITIVE BLOOD 2021-05-25 10:37:00 Michael Raymond [facility] PATHOGENS DNA Medical Branch PROBE-AEROBIC TROPONIN I 2021-05-25 10:31:00 Singer [facility] COMP. METABOLIC PANEL 2021-05-25 10:31:00 Michael Raymond [facility] ([id number]) [facility] N-TERMINAL PRO-BNP 2021-05-25 10:31:00 Michael Raymond [facility] CBC WITH DIFF 2021-05-25 10:30:00 Singer [facility] EKG-12 LEAD 2021-05-25 10:10:00 Singer [facility] EMERGENCY DEPARTMENT 2021-05-25 05:01:00 Doctor Unassigned, [facility] DOCUMENTS [place] [facility] [id number] 2021-05-09 00:00:00 RAOVI [facility] [place] [id number] 2021-05-08 00:00:00 GREBR.01 [facility] Center [id number] 2021-05-08 00:00:00 GREBR.01 [facility] Center [id number] 2021-05-08 00:00:00 GREBR.01 [facility] Plan of Care Planned Activity Planned Date Details Comments Source Future Scheduled 2022-03-13 COVID-19 Vaccination [facility] [place] Test 17:41:13 (#1) [code = ROSALINDA POWERS [facility] Vaccination (#1)] Center Future Scheduled 2022-03-13 COVID-19 Vaccination [facility] [place] Test 17:41:13 (#1) [code = ROSALINDA POWERS [facility] Vaccination (#1)] Center Future [...] Center Future Scheduled COVID-19 Vaccination Mem orial [place] Test (1) [code = COVID-19 Vaccination (1)] Goal Plan of Care Note [code = 63312-5] Goal Plan of Care Note [code = 01902-3] Goal Plan of Care Note [code = 92434-4] Goal Plan of Care Note [code = 72097-8] Goal Plan of Care Note [code = 80398-5] Goal Plan of Care Note [code = 85173-2] Goal Plan of Care Note [code = 82481-9] Goal Plan of Care Note [code = 91518-6] Goal Plan of Care Note [code = 15417-5] Goal Plan of Care Note [code = 92586-2] Goal Plan of Care Note [code = 48101-1] Goal Plan of Care Note [code = 34624-7] Goal Plan of Care Note [code = 06039-1] Goal Plan of Care Note [code = 94796-6] Goal Plan of Care Note [code = 36178-3] Goal Plan of Care Note [code = 21084-3] Goal Plan of Care Note [code = 00104-3] Goal Plan of Care Note [code = 65050-5] Goal Plan of Care Note [code = 30610-0] Goal Plan of Care Note [code = 04187-1] Goal Plan of Care Note [code = 45313-3] Goal Plan of Care Note [code = 87307-2] Goal Plan of Care Note [code = 35473-2] Goal Plan of Care Note [code = 89333-3] Goal Plan of Care Note [code = 10692-0] Goal Plan of Care Note [code = 20009-5] Goal Plan of Care Note [code = 95486-3] Goal Plan of Care Note [code = 46904-6] Goal Plan of Care Note [code = 13815-9] Goal Plan of Care Note [code = 44527-3] Goal Plan of Care Note [code = 87023-6] Goal Plan of Care Note [code = 02579-7] Goal Plan of Care Note [code = 37383-1] Goal Plan of Care Note [code = 33487-0] Goal Plan of Care Note [code = 29868-3] Goal Plan of Care Note [code = 10570-4] Goal Plan of Care Note [code = 15173-2] Goal Plan of Care Note [code = 26060-8] Goal Plan of Care Note [code = 41242-2] Goal Plan of Care Note [code = 69797-5] Goal Plan of Care Note [code = 53030-1] Goal Plan of Care Note [code = 58500-5] Goal Plan of Care Note [code = 19944-9] Goal Plan of Care Note [code = 23100-8] Goal Plan of Care Note [code = 78423-1] Goal Plan of Care Note [code = 94808-5] Goal Plan of Care Note [code = 26148-4] Goal Plan of Care Note [code = 55072-8] Goal Plan of Care Note [code = 12526-1] Goal Plan of Care Note [code = 29231-6] Goal Plan of Care Note [code = 41570-4] Encounters Start End Encounter Admission Attending Care Care Encounter Source Date/Time Date/Time Type Type Clinicians Facility Department ID 2021-10-23 [facility] [id number] [place] 09:19:51 [facility] 2021-03-08 Outpatient [facility] [id number] [place] 01:04:08 [facility] 2021-01-16 Outpatient JOHN [facility] [id number] [place] 11:42:44 [facility] 2020-01-24 Outpatient LONNIE LOPEZ MHSE [id number] 08:47:43 [facility] 2022-12-25 2022-12-25 Outpatient SFA SFA [id number] Jc 15:32:36 15:32:36 0420 [facility] 2022-10-08 2022-10-08 Outpatient SFA SFA [id number] Jc 13:12:56 13:12:56 0201 F Bradley 2022-09-23 2022-09-23 Outpatient SFA SFA [id number] Jc 14:07:13 14:07:13 0117 [facility] 2022-09-22 2022-09-22 Outpatient SFA SFA [id number] Jc 14:58:14 14:58:14 0116 [facility] 2022-09-22 2022-09-22 Outpatient [id number] 00:00:00 00:00:00 Visit [id number] 9717-08-30 2022-05-06 Outpatient [id number] 00:00:00 00:00:00 Visit [id number] 2021-12-31 2021-12-31 Office John [facility] 1.2.840.114 [id number] NE 09:45:00 12:29:18 Visit [facility] MED [id number] [address] 9.2.7.2.686 [id number] 2021-11-05 2021-11-05 Outpatient LONNIE LOPEZ SE [id number] 08:29:00 16:00:00 [facility] 2021-11-04 2021-11-04 Outpatient R AFSHAN GARIBAY [facility] [id number] [facility] 19:30:00 19:30:00 AFSHAN GARIBAY [facility] 2021-10-25 2021-10-25 Buggy Man 1, [facility] Sleep Lab Bed [facility] 1. 2.840.114 [id number] Univers 19:30:00 22:00:00 Visit Afshan Garibay T[place]IE 350.1.13. 10 [facility] 4.2.7.2.686 [facility] [id number] [facility] 193 Branch 2021-10-25 2021-10-25 Outpatient R AFSHAN GARIBAY [facility] [id number] Univers 19:30:00 19:30:00 AFSHAN GARIBAY itrosalino [facility] 2021-10-25 2021-10-25 Orders Doctor TAPIA 1.2.840.114 [id number] Univers 00:00:00 00:00:00 Only Unassigned, OBEY 350.1.13.10 [facility] 4.2.7.2.686 [facility] [id number] [facility] 009 Branch 2021-10-08 2021-10-08 Telephonic JOSE Lopez [facility] 1.2.840.114 [id number] NE 07:45:00 08:39:06 Encounter [facility] 350.1.13.58 Health PLAZA 9.2.7.2.686 [id number] 2021-10-01 2021-10-01 Outpatient R AFSHAN GARIBAY [facility] [id number] Univers 19:30:00 19:30:00 AFSHAN GARIBAY itrosalino [facility] 2021-09-27 2021-09-27 Laboratory Only, [facility] Test [facility] 1.2.840. 114 [id number] Univers 15:00:00 15:15:00 Only Nataliia Perez [id number] ity of [place] 4.2.7.2.686 [facility] [id number] [facility] 353 Branch 2021-09-27 2021-09-27 Outpatient R ANA [facility] [id number] Univers 15:00:00 15:00:00 NATALIIA tejada [facility] 2021-09-27 2021-09-27 Orders Doctor TAPIA 1.2.840.114 [id number] Univers 00:00:00 00:00:00 Only Unassigned, OBEY 350.1.13.10 ity of [place] [facility] 4.2.7.2.686 Gianni as [id number] [facility] 009 Branch 2021-06-21 2021-06-21 Orders Doctor TAPIA 1.2.840.114 [id number] Univers 00:00:00 00:00:00 Only Unassigned, OBEY 350.1.13.10 ity of [place] [facility] 4.2.7.2.686 Gianni as [id number] [facility] 009 Branch 2021-06-04 2021-06-04 Transition Zeny Herediasae 1.2.840.114 [id number] Univers 00:00:00 00:00:00 of Care Lupe Prieto 350.1.13.10 it y of [place] [id number] [facility] 403 Branch 2021-05-25 2021-06-03 Hospital Michael Raymond [facility] 1.2.840.1 14 [id number] Univers 05:22:00 21:20:00 Encounter Ezzo, Ali Health 350.1.13.10 [place].686 [place] [id number] [facility] 113 Branch (CLC) 2021-05-25 2021-05-25 Emergency X SINGER [facility] ERT [id number] Univers 05:22:00 05:22:00 MICHAEL tejada [facility] 2021-05-08 2021-05-23 Inpatient ASHLEE Post INTM.01 [id number] [facility] 11:40:00 18:33:00 Florentino 44 [facility] 2021-05-08 2021-05-08 Outpatient SARAN Jenkins REF [id number] [facility] 18:53:00 18:53:00 Florentino 90 [facility] 2021-05-08 2021-05-08 EXT [facility] OP DAGMAR [place] [facility] 1.2.840.114 1 [id number] NE 00:00:00 00:00:00 Ad Jesús LOCATION 350.1.13.58 Health 9.2.7.2.686 [id number] 2021-05-08 2021-05-08 EXT MHH OP [place], EXT MSRDP 1.2.840.114 1 [id number] [place] 00:00:00 00:00:00 Ad Espinosa LOCATION 350.1.13.58 Health 9.2.7.2.686 [id number] 2021-05-07 2021-05-07 Office John [facility] MH 1.2.840.114 [id number] 09:30:38 10:10:32 Visit [place] SE MED 350.1.13.58 PLAZA 1 9.2.7.2.686 [id number] 2021-05-07 2021-05-07 Office John [facility] MH 1.2.840.114 [id number] [place] 09:30:38 10:10:32 Visit Fabian SE MED 350.1.13.58 He alth [address] 1 9.2.7.2.686 [id number] 2021-02-05 2021-02-05 Outpatient JOHN MHSE MHSE [id number] MH 08:46:00 15:45:00 [facility] 2020-11-29 2020-11-29 Orders Zahira Cummings [id number] Memoria 00:00:00 00:00:00 Only r [place] Nelson 2020-06-15 2020-06-15 Office Zahira Cummings [id number] Memoria 16:30:00 17:00:00 Visit r in [place] l Rowdy Damon 2020-06-15 2020-06-15 Outpatient SAEED HIDALGO MDA MDA [id number] 00:00:00 00:00:00 OSVALDO quevedo 2020-01-27 2020-01-27 Outpatient E VIOLETTA, MHSE MED [id number] MH 08:12:00 12:48:[address] [facility] 2019-10-20 2019-10-20 Outpatient MHSE MHSE [id number] MH 05:20:00 05:20:[facility] Results Test Description Test Time Test Comments Results Result Comments Source URIC ACID 2022-09-24 04:35:28 Test Item Value Reference Range Interpretation Comme nts URIC ACID (test code = 2233) 10.4 MG/DL 2.7-6.1 H UNLESS OTHERWISE INDICATED, ALL TESTING PERFORM ED ATCLINICAL PATHOLOGY XYverify, [facility]. [address] [place] [address] [place] [employer]INE WORKER: PRISCILLA FELIX M.D. CLIA NUMBER [id number] CAP ACCREDITATION N O. [id number] COMPREHENSIVE METABOLIC [id number] 04:35:28 Test Item Value Reference Range Interpretation Comments GLUCOSE (test code = 120 MG/DL 70-99 H 2216) BUN (test code = 52 MG/DL 8-23 H 2207) CREATININE (test 2.18 MG/DL 0.60-1.30 H code = 2214) eGFR (2020 CKD-EPI) 24 ML/MIN/1.73 >60 L (test code = 95250) CALC BUN/CREAT (test 24 RATIO 6-28 code = 2235) SODIUM (test code = 146 MEQ/L 264-477 5148) POTASSIUM (test code 4.5 MEQ/L 3.5-5.4 = 2227) CHLORIDE (test code 102 MEQ/L 95-107 = 221) CARBON DIOXIDE (test 32 MEQ/L 19-31 H [...] code = 10 U/L 5-40 2218) LIPID [id number] 04:35:28 Test Item Value Reference Range Interpretation Comments CHOLESTEROL (test 116 MG/DL <200 code = 2210) TRIGLYCERIDES (test 163 MG/DL <150 H code = 2232) HDL CHOLESTEROL (test 27 MG/DL >39 L code = 2220) CALC LDL CHOL (test 65 MG/DL <100 NOTE: C ALCULATED LDL code = 2237) IS BASED ON JOHN-ARROYO METHOD WHICHINCLUDES ADJUSTABLE TRIGLYCERIDE:VL DL CHOLESTEROL RAT IO.THIS FACTOR VARIES B Y MEASURED TRIGLY CERIDE AND NON-HDLCHOL ESTEROL CONCENTRATIONS WITH INCREASED CALCU LATED LDL SEENIN HIGH ER TRIGLYCERIDE OR LOWER NON-HDL SPECIME NS. FOR MOREINFORMATION , SEE CLIENT ANNOUNCE MENT AT [email or web address] [email or web address] RATIO LDL/HDL 2.41 RATIO <3.22 (test code = 2238) HEMOGLOBIN [id number] 04:25:12 Test Item Value Reference Range Interpretation Comments HEMOGLOBIN A1c (test 9.6 % 4.2-5.6 H [employer] AN DIABETES code = 79030) ASSOCIATION IDELINES FOR HGB A1C: PREDIABETES/INC REASED [...] OR LABORATORY C ONSULTATION. ALBUMIN/CREATININE RATIO, URINE, [id number] 04:00:10 Test Item Value Reference Range Interpretation Comments CREATININE, URINE, 81.9 MG/DL NOT ESTAB CONC. (test code = 2072) ALBUMIN, URINE, 8.5 MG/DL NOT ESTAB RANDOM (test code = 19321) CALC ALBUMIN/CREAT, 104 MG/G <30 H Note: RND (test code = Albumin/Cre atinine 14326) ratio reference interval reflec ts ADA and NKF guideli samir. POCT GLUCOSE (AUTOMATED)2021-06-03 17:32:53 Test Item Value Reference Range Interpretation Comments POCT GLU (test code = 4800948584) 147 mg/dL 70-110 H Lab Interpretation (test code = Abnormal 93718-0) General acute hospital GLUCOSE (AUTOMATED)2021-06-03 13:30:58 Test Item Value Reference Range Interpretation Comments POCT GLU (test code = 8630574536) 105 mg/dL 70-110 Lab Interpretation (test code = Normal 68858-1) General acute hospital GLUCOSE (AUTOMATED)2021-06-03 01:10:52 Test Item Value Reference Range Interpretation Comments POCT GLU (test code = 1095369534) 193 mg/dL 70-110 H Lab Interpretation (test code = Abnormal 21076-5) General acute hospital GLUCOSE (AUTOMATED)2021-06-02 20:51:49 Test Item Value Reference Range Interpretation Comments POCT GLU (test code = 8979103100) 177 mg/dL 70-110 H Lab Interpretation (test code = Abnormal 38121-3) General acute hospital GLUCOSE (AUTOMATED)2021-06-02 16:52:35 Test Item Value Reference Range Interpretation Comments POCT GLU (test code = 5535520543) 161 mg/dL 70-110 H Lab Interpretation (test code = Abnormal 48652-0) General acute hospital GLUCOSE (AUTOMATED)2021-06-02 12:34:49 Test Item Value Reference Range Interpretation Comments POCT GLU (test code = 4791787852) 94 mg/dL 70-110 Lab Interpretation (test code = Normal 09124-8) [facility] METABOLIC PANEL (NA, K, CL, CO2, GLUCOSE, BUN, CREATININE, CA)2021-06-02 06:19:02 Test Item Value Reference Range Interpretation Comments NA (test code = 136 mmol/L 135-145 9103420173) K (test code = 4.0 mmol/L 3.5-5.0 4642074632) CL (test code = 99 mmol/L 98-108 9810520223) CO2 TOTAL (test code = 32 mmol/L 23-31 H 4641006824) AGAP (test code = 2-16 9533009524) BUN (test code = 90 mg/dL 7-23 H 0518531405) GLUCOSE (test code = 94 mg/dL 70-110 4711704989) CREATININE (test code = 2.39 mg/dL 0.50-1.04 H 5325085810) CALCIUM (test code = 8.5 mg/dL 8.6-10.6 L 4753648639) eGFR (test code = mL/min/1.73m2 2523796847) JONATHAN (test code = JONATHAN) Association of [...] tests). Lab Interpretation Abnormal (test code = 29317-3) General acute hospital GLUCOSE (AUTOMATED)2021-06-02 02:53:39 Test Item Value Reference Range Interpretation Comments POCT GLU (test code = 2302060836) 157 mg/dL 70-110 H Lab Interpretation (test code = Abnormal 20379-0) General acute hospital GLUCOSE (AUTOMATED)2021-06-02 02:53:34 Test Item Value Reference Range Interpretation Comments POCT GLU (test code = 9170420516) 195 mg/dL 70-110 H Lab Interpretation (test code = Abnormal 55522-7) General acute hospital GLUCOSE (AUTOMATED)2021-06-02 02:53:34 Test Item Value Reference Range Interpretation Comments POCT GLU (test code = 3404547285) 149 mg/dL 70-110 H Lab Interpretation (test code = Abnormal 76863-3) General acute hospital GLUCOSE (AUTOMATED)2021-06-01 16:58:33 Test Item Value Reference Range Interpretation Comments POCT GLU (test code = 6333143196) 196 mg/dL 70-110 H Lab Interpretation (test code = Abnormal 87459-8) General acute hospital GLUCOSE (AUTOMATED)2021-06-01 12:58:56 Test Item Value Reference Range Interpretation Comments POCT GLU (test code = 4737896464) 99 mg/dL 70-110 Lab Interpretation (test code = Normal 49602-9) [facility] Test Item Value Reference Range Interpretation Comments MAGNESIUM (test code = 8249656273) 2.5 mg/dL 1.7-2.4 H Lab Interpretation (test code = Abnormal 11109-2) [facility]. METABOLIC PANEL ([id number])2021-06-01 11:48:06 Test Item Value Reference Range Interpretation Comments NA (test code = 139 mmol/L 135-145 5674128602) K (test code = 3.8 mmol/L 3.5-5.0 8641685705) CL (test code = 101 mmol/L 98-108 3635531028) CO2 TOTAL (test code = 30 mmol/L 23-31 7173364820) AGAP (test code = 2-16 6669266621) BUN (test code = 85 mg/dL 7-23 H 8076710460) GLUCOSE (test code = 80 mg/dL 70-110 5883624089) CREATININE (test code = 2.66 mg/dL 0.50-1.04 H 5255851730) TOTAL BILI (test code = 0.3 mg/dL 0.1-1.3 4477334659) CALCIUM (test code = 8.2 mg/dL 8.6-10.6 L 6603641123) T PROTEIN (test code = 5.4 g/dL 6.3-8.2 L 2196725896) ALBUMIN (test code = 2.8 g/dL 3.5-5.0 L 3356509650) ALK PHOS (test code = 95 U/L 34-122 4879102426) ALTv (test code = 15 U/L 5-35 1742-6) AST(SGOT) (test code = 15 U/L 13-40 4175405197) eGFR (test code = mL/min/1.73m2 4231739295) JONATHAN (test code = JONATHAN) Association of [...] tests). Lab Interpretation Abnormal (test code = 49487-6) General acute hospital GLUCOSE (AUTOMATED)2021-06-01 01:45:09 Test Item Value Reference Range Interpretation Comments POCT GLU (test code = 172 mg/dL 70-110 H Notifi ed Provider 0539379211) Lab Interpretation (test Abnormal code = 69301-0) General acute hospital GLUCOSE (AUTOMATED)2021-05-31 22:37:53 Test Item Value Reference Range Interpretation Comments POCT GLU (test code = 4797535589) 161 mg/dL 70-110 H Lab Interpretation (test code = Abnormal 09860-6) General acute hospital GLUCOSE (AUTOMATED)2021-05-31 17:41:51 Test Item Value Reference Range Interpretation Comments POCT GLU (test code = 8358164340) 184 mg/dL 70-110 H Lab Interpretation (test code = Abnormal 01112-6) General acute hospital GLUCOSE (AUTOMATED)2021-05-31 13:23:34 Test Item Value Reference Range Interpretation Comments POCT GLU (test code = 8277211592) 100 mg/dL 70-110 Lab Interpretation (test code = Normal 49623-6) [facility] METABOLIC PANEL ([id number])2021-05-31 09:34:08 Test Item Value Reference Range Interpretation Comments NA (test code = 136 mmol/L 135-145 0918548052) K (test code = 4.2 mmol/L 3.5-5.0 8732303989) CL (test code = 102 mmol/L 98-108 4893836499) CO2 TOTAL (test code = 29 mmol/L 23-31 9452894903) AGAP (test code = 2-16 6975200745) BUN (test code = 83 mg/dL 7-23 H 8487692179) GLUCOSE (test code = 76 mg/dL 70-110 0053321740) CREATININE (test code = 2.71 mg/dL 0.50-1.04 H 4339228066) TOTAL BILI (test code = 0.3 mg/dL 0.1-1.9 3644007745) CALCIUM (test code = 8.3 mg/dL 8.6-10.6 L 6469342328) T PROTEIN (test code = 5.4 g/dL 6.3-8.2 L 1154652049) ALBUMIN (test code = 2.8 g/dL 3.5-5.0 L 2101998549) ALK PHOS (test code = 97 U/L 34-122 4560052014) ALTv (test code = 15 U/L 5-35 1742-6) AST(SGOT) (test code = 18 U/L 13-40 3928352763) eGFR (test code = mL/min/1.73m2 0821525142) JONATHAN (test code = JONATHAN) Association of [...] tests). Lab Interpretation Abnormal (test code = 60504-0) [facility] 09:[facility] Test Item Value Reference Range Interpretation Comments MAGNESIUM (test code = 9022813123) 2.4 mg/dL 1.7-2.4 Lab Interpretation (test code = Normal 00800-4) General acute hospital GLUCOSE (AUTOMATED)2021-05-31 02:02:05 Test Item Value Reference Range Interpretation Comments POCT GLU (test code = 160 mg/dL 70-110 H Notifi ed Provider 3178154355) Lab Interpretation (test Abnormal code = 86446-6) General acute hospital GLUCOSE (AUTOMATED)2021-05-30 22:21:35 Test Item Value Reference Range Interpretation Comments POCT GLU (test code = 9262474499) 205 mg/dL 70-110 H Lab Interpretation (test code = Abnormal 01213-0) [facility] [id number] 21:10:39 Test Item Value Reference Range Interpretation [...] to a previously preliminary benji ified report. General acute hospital GLUCOSE (AUTOMATED)2021-05-30 17:04:06 Test Item Value Reference Range Interpretation Comments POCT GLU (test code = 2428862708) 166 mg/dL 70-110 H Lab Interpretation (test code = Abnormal 73631-6) General acute hospital GLUCOSE (AUTOMATED)2021-05-30 13:18:06 Test Item Value Reference Range Interpretation Comments POCT GLU (test code = 6589648004) 101 mg/dL 70-110 Lab Interpretation (test code = Normal 56303-3) [facility] 11:20:09 Test Item Value Reference Range Interpretation Comments MAGNESIUM (test code = 2604643032) 2.2 mg/dL 1.7-2.4 Lab Interpretation (test code = Normal 58695-1) [facility] (42215)2021-05-30 11:20:09 Test Item Value Reference Range Interpretation Comments NA (test code = 139 mmol/L 135-145 4012559029) K (test code = 4.3 mmol/L 3.5-5.0 5263035980) CL (test code = 102 mmol/L 98-108 9719581412) CO2 TOTAL (test code = 29 mmol/L 23-31 5196569875) AGAP (test code = 2-16 6971798190) BUN (test code = 75 mg/dL 7-23 H 6531860813) GLUCOSE (test code = 91 mg/dL 70-110 5806783644) CREATININE (test code = 2.67 mg/dL 0.50-1.04 H 3922371842) TOTAL BILI (test code = 0.4 mg/dL 0.1-1.6 9990318833) CALCIUM (test code = 8.4 mg/dL 8.6-10.6 L 6573685971) T PROTEIN (test code = 5.4 g/dL 6.3-8.2 L 0018540560) ALBUMIN (test code = 2.8 g/dL 3.5-5.0 L 2317261512) ALK PHOS (test code = 96 U/L 34-122 4047794506) ALTv (test code = 15 U/L 5-35 1742-6) AST(SGOT) (test code = 18 U/L 13-40 6771031813) eGFR (test code = mL/min/1.73m2 0454116160) JONATHAN (test code = JONATHAN) Association of [...] tests). Lab Interpretation Abnormal (test code = 45837-8) [facility] [id number] 11:01:18 Test Item Value Reference Range Interpretation Comments Blood Culture-Aerobic No organisms No growth Previo us (test code = 70983-9) isolated prelim inary verified result was Culture In Progress on 05/25/2021 at 09 01 CDTPrevious preliminary verified result was No growth a t 24 hours on 05/26/2021 at 06 01 CDTPrevious preliminary verified result was No growth a t 48 hours on 05/27/2021 at 06 01 CDTPrevious preliminary verified result was No growth a t 72 hours on 05/28/2021 at 06 01 CDT Blood No organisms No growth Previous Culture-Anaerobic isolated preliminar y (test code = 11643-9) verifi ed result was Culture In Progress on 05/25/2021 at 09 01 CDTPrevious preliminary verified result was No growth a t 24 hours on 05/26/2021 at 06 01 CDTPrevious preliminary verified result was No growth a t 48 hours on 05/27/2021 at 06 01 CDTPrevious preliminary verified result was No growth a t 72 hours on 05/28/2021 at 06 01 CDT Lab Interpretation Normal (test code = 61022-2) General acute hospital GLUCOSE (AUTOMATED)2021-05-30 01:59:35 Test Item Value Reference Range Interpretation Comments POCT GLU (test code = 9415780408) 142 mg/dL 70-110 H Lab Interpretation (test code = Abnormal 27207-8) General acute hospital GLUCOSE (AUTOMATED)2021-05-29 21:12:32 Test Item Value Reference Range Interpretation Comments POCT GLU (test code = 9652555842) 167 mg/dL 70-110 H Lab Interpretation (test code = Abnormal 86616-1) General acute hospital GLUCOSE (AUTOMATED)2021-05-29 17:17:54 Test Item Value Reference Range Interpretation Comments POCT GLU (test code = 7961500157) 220 mg/dL 70-110 H Lab Interpretation (test code = Abnormal 64855-1) General acute hospital GLUCOSE (AUTOMATED)2021-05-29 12:58:49 Test Item Value Reference Range Interpretation Comments POCT GLU (test code = 4792575958) 93 mg/dL 70-110 Lab Interpretation (test code = Normal 38236-8) [facility] METABOLIC PANEL (NA, K, CL, CO2, GLUCOSE, BUN, CREATININE, CA)2021-05-29 10:45:02 Test Item Value Reference Range Interpretation Comments NA (test code = 140 mmol/L 135-145 9314200309) K (test code = 4.3 mmol/L 3.5-5.0 Slight 3411492948) hemolysis CL (test code = 103 mmol/L 98-108 2448289236) CO2 TOTAL (test code 32 mmol/L 23-31 H = 0409064859) AGAP (test code = 2-16 5210922059) BUN (test code = 71 mg/dL 7-23 H Slight 4540345257) hemolysis GLUCOSE (test code = 60 mg/dL 70-110 L 8058973832) CREATININE (test code 2.17 mg/dL 0.50-1.04 H = 1609767374) CALCIUM (test code = 8.8 mg/dL 8.6-10.6 2835502223) eGFR (test code = mL/min/1.73m2 0827360072) JONATHAN (test code = JONATHAN) Association of [...] tests). Lab Interpretation Abnormal (test code = 41700-3) General acute hospital GLUCOSE (AUTOMATED)2021-05-29 03:09:46 Test Item Value Reference Range Interpretation Comments POCT GLU (test code = 4756136628) 158 mg/dL 70-110 H Lab Interpretation (test code = Abnormal 59773-9) General acute hospital GLUCOSE (AUTOMATED)2021-05-28 22:17:36 Test Item Value Reference Range Interpretation Comments POCT GLU (test code = 1216449641) 166 mg/dL 70-110 H Lab Interpretation (test code = Abnormal 42638-8) General acute hospital GLUCOSE (AUTOMATED)2021-05-28 17:41:02 Test Item Value Reference Range Interpretation Comments POCT GLU (test code = 0442054126) 205 mg/dL 70-110 H Lab Interpretation (test code = Abnormal 38979-7) [facility] METABOLIC PANEL (NA, K, CL, CO2, GLUCOSE, BUN, CREATININE, CA)2021-05-28 15:57:39 Test Item Value Reference Range Interpretation Comments NA (test code = 140 mmol/L 135-145 2719651543) K (test code = 4.4 mmol/L 3.5-5.0 9707782042) CL (test code = 104 mmol/L 98-108 6763867480) CO2 TOTAL (test code = 30 mmol/L 23-31 6190116847) AGAP (test code = 2-16 1954215454) BUN (test code = 68 mg/dL 7-23 H 2859218792) GLUCOSE (test code = 87 mg/dL 70-110 1099050548) CREATININE (test code = 2.25 mg/dL 0.50-1.04 H 0567103174) CALCIUM (test code = 8.7 mg/dL 8.6-10.6 9031237621) eGFR (test code = mL/min/1.73m2 6075973727) JONATHAN (test code = JONATHAN) Association of [...] tests). Lab Interpretation Abnormal (test code = 25919-3) [facility] [id number] 15:10:52 Test Item Value Reference Range Interpretation Comments APTT Patient (test code See_Comment H [Au tomated message] = 3173-2) The system [employer] generated this result transmitted ref erence range: 26 - 36 Seconds. The reference range was not used to int erpret this result as normal/abnormal . Lab Interpretation (test Abnormal code = 95518-7) [facility] 14:02:53 Test Item Value Reference Range Interpretation Comments POCT GLU (test code = 3609346216) 100 mg/dL 70-110 Lab Interpretation (test code = Normal 49507-4) [facility] [id number] 12:03:46 Test Item Value Reference Range Interpretation [...] (test code = 54.3 fL 39.0-49.9 H 40404-8) RDW-CV (test code = 15.1 % 12.0-15.5 788-0) PLT (test code = See_Comment [Automated 777-3) message] The sy stem which generated this result transmitted reference range : 166 - 358 10*3/ ?L. The reference r comfort was not used to interpret this result as normal/abnormal . MPV (test code = 10.7 fL 9.5-12.9 21054-9) NRBC/100 WBC (test See_Comment [Automat ed code = 6765754260) message] The system which generated this result transmitted reference range : 0.0 - 10.0 /100 WBCs. The refer ence range was not u sed to interpret th is result as normal/abnormal . NRBC x10^3 (test code <0.01 See_Comment [Auto mated = 5233534601) message] The s ystem which generated this result transmitted reference range : 10*3/?L. The reference range was not used to interpret this result as normal/abnormal . GRAN MAT (NEUT) % 72.6 % (test code = 770-8) IMM GRAN % (test code 0.40 % = 4883089228) LYMPH % (test code = 10.6 % 736-9) MONO % (test code = 10.9 % 5905-5) EOS % (test code = 4.7 % 713-8) BASO % (test code = 0.8 % 706-2) GRAN MAT x10^3(ANC) 6.51 10*3/uL 1.88-7.09 (test code = 8264067260) IMM GRAN x10^3 (test 0.04 10*3/uL 0.00-0.06 code = 4108285294) LYMPH x10^3 (test code 0.95 10*3/uL 1.32-3.29 L = 731-0) MONO x10^3 (test code 0.98 10*3/uL 0.33-0.92 H = 742-7) EOS x10^3 (test code = 0.42 10*3/uL 0.03-0.39 H 711-2) BASO x10^3 (test code 0.07 10*3/uL 0.01-0.07 = 704-7) Lab Interpretation Abnormal (test code = 89686-7) [facility] PARTIAL THRMPLAS [id number] 03:56:30 Test Item Value Reference Range Interpretation Comments APTT Patient (test code See_Comment H [Au tomated message] = 3173-2) The system [employer] generated this result transmitted ref erence range: 26 - 36 Seconds. The reference range was not used to int erpret this result as normal/abnormal . Lab Interpretation (test Abnormal code = 27899-8) General acute hospital GLUCOSE (AUTOMATED)2021-05-28 01:51:57 Test Item Value Reference Range Interpretation Comments POCT GLU (test code = 2835551814) 157 mg/dL 70-110 H Lab Interpretation (test code = Abnormal 23068-7) General acute hospital GLUCOSE (AUTOMATED)2021-05-27 22:45:24 Test Item Value Reference Range Interpretation Comments POCT GLU (test code = 2107163116) 115 mg/dL 70-110 H Lab Interpretation (test code = Abnormal 31931-9) [facility] PARTIAL THRMPLAS [id number] 20:47:50 Test Item Value Reference Range Interpretation Comments APTT Patient (test code See_Comment H [Au tomated message] = 3173-2) The system [employer] generated this result transmitted ref erence range: 26 - 36 Seconds. The reference range was not used to int erpret this result as normal/abnormal . Lab Interpretation (test Abnormal code = 33949-9) [facility] 16:59:28 Test Item Value Reference Range Interpretation Comments POCT GLU (test code = 8200010820) 155 mg/dL 70-110 H Lab Interpretation (test code = Abnormal 36538-2) [facility] [id number] 16:36:54 Test Item Value Reference Range Interpretation Comments Blood Culture-Aerobic Culture positive. No growth AA P revious (test code = 32131-8) See Blood Culture p reliminary Workup for verified result additional was Culture In information. Progress on 05/25/2021 at 09 01 CDTPrevious preliminary verified result was No growth a t 24 hours on 05/26/2021 at 06 01 CDT Blood Culture positive. No growth AA Previous Culture-Anaerobic See Blood Culture preli minary (test code = 74811-9) Workup for verifi ed result additional was Culture In information. Progress on 05/25/2021 at 09 01 CDTPrevious preliminary verified result was No growth a t 24 hours on 05/26/2021 at 10 34 CDT Lab Interpretation Abnormal (test code = 51483-7) [facility] METABOLIC PANEL (NA, K, CL, CO2, GLUCOSE, BUN, CREATININE, CA)2021-05-27 16:18:19 Test Item Value Reference Range Interpretation Comments NA (test code = 139 mmol/L 135-145 2173680119) K (test code = 4.9 mmol/L 3.5-5.0 7462517880) CL (test code = 106 mmol/L 98-108 7452817024) CO2 TOTAL (test code = 26 mmol/L 23-31 4358967756) AGAP (test code = 2-16 8630027473) BUN (test code = 65 mg/dL 7-23 H 1475085523) GLUCOSE (test code = 87 mg/dL 70-110 6071592672) CREATININE (test code = 2.38 mg/dL 0.50-1.04 H 5880839045) CALCIUM (test code = 8.5 mg/dL 8.6-10.6 L 2787935844) eGFR (test code = mL/min/1.73m2 1509647989) JONATHAN (test code = JONATHAN) Association of [...] tests). Lab Interpretation Abnormal (test code = 70512-5) [facility] 16:18:19 Test Item Value Reference Range Interpretation Comments MAGNESIUM (test code = 5341457196) 2.4 mg/dL 1.7-2.4 Lab Interpretation (test code = Normal 51431-4) [facility]21-[facility] 12:59:11 Test Item Value Reference Range Interpretation Comments POCT GLU (test code = 5984341295) 95 mg/dL 70-110 Lab Interpretation (test code = Normal 38196-9) [facility] [id number] 11:11:54 Test Item Value Reference Range Interpretation Comments APTT Patient (test code See_Comment H [Au tomated message] = 3173-2) The system [employer] generated this result transmitted ref erence range: 26 - 36 Seconds. The reference range was not used to int erpret this result as normal/abnormal . Lab Interpretation (test Abnormal code = 64105-4) [facility] [id number] 02:55:23 Test Item Value Reference Range Interpretation Comments APTT Patient (test code See_Comment H [Au tomated message] = 3173-2) The system [employer] generated this result transmitted ref erence range: 26 - 36 Seconds. The reference range was not used to int erpret this result as normal/abnormal . Lab Interpretation (test Abnormal code = 48849-0) [facility]-27 00:50:49 Test Item Value Reference Range Interpretation Comments POCT GLU (test code = 7440161476) 150 mg/dL 70-110 H Lab Interpretation (test code = Abnormal 00636-7) [facility]ENS DNA [id number] 00:04:21 Test Item Value Reference Range Interpretation Comments Coagulase Negative Positive Negative, See A Staphylococcus (test Comment/Narrative code = 74507-4) JONATHAN (test code = JONATHAN) Coagulase negative [...] contact the Antim[facility]ward[facility] Program with questions.Pager: [phone] Testing included eleven identification and three resistance marker targets. Lab Interpretation Abnormal (test code = 79792-5) [facility] acute hospital GLUCOSE (AUTOMATED)2021-05-26 21:55:30 Test Item Value Reference Range Interpretation Comments POCT GLU (test code = 7990102429) 96 mg/dL 70-110 Lab Interpretation (test code = Normal 86353-2) [facility] 18:41:59 Test Item Value Reference Range Interpretation Comments APTT Patient (test code = See_Comment [ Automated message] 3173-2) The system [employer] generated this result transmitted ref erence range: 26 - 36 Seconds. The re ference range was not u sed to interpret this result as normal/abnor mal. Lab Interpretation (test Normal code = 32212-0) [facility] (A1C)2021-05-26 18:17:51 Test Item Value Reference Range Interpretation Comments HGB A1C (test code = 7.9 % 4.0-5.7 H 4548-4) JONATHAN (test code = JONATHAN) Reference RangesNormal: <5.7%Prediabetes: 5.7 - 6.4%Diabetes: > 6.5% Lab Interpretation (test Abnormal code = 63134-8) [facility] acute hospital GLUCOSE (AUTOMATED)2021-05-26 16:44:33 Test Item Value Reference Range Interpretation Comments POCT GLU (test code = 87 mg/dL 70-110 Notifi ed Provider [id number]) Lab Interpretation (test Normal code = 94780-9) General acute hospital GLUCOSE (AUTOMATED)2021-05-26 13:17:53 Test Item Value Reference Range Interpretation Comments POCT GLU (test code = 2735725129) 84 mg/dL 70-110 Lab Interpretation (test code = Normal 27052-2) [facility] (NA, K, CL, CO2, GLUCOSE, BUN, CREATININE, CA)2021-05-26 11:25:44 Test Item Value Reference Range Interpretation Comments NA (test code = 141 mmol/L 135-145 3947768265) K (test code = 5.2 mmol/L 3.5-5.0 H 1304669549) CL (test code = 109 mmol/L 98-108 H 7343862213) CO2 TOTAL (test code = 31 mmol/L 23-31 0532806521) AGAP (test code = 2-16 L 8628636717) BUN (test code = 68 mg/dL 7-23 H 2700315889) GLUCOSE (test code = 69 mg/dL 70-110 L 8979209330) CREATININE (test code = 2.20 mg/dL 0.50-1.04 H 5901804862) CALCIUM (test code = 8.8 mg/dL 8.6-10.6 4305589366) eGFR (test code = mL/min/1.73m2 9500042639) JONATHAN (test code = JONATHAN) Association of [...] tests). Lab Interpretation Abnormal (test code = 28373-9) General acute hospital WITH [id number] 11:15:42 Test Item Value Reference Range Interpretation [...] (test code = 56.2 fL 39.0-49.9 H 40260-9) RDW-CV (test code = 15.1 % 12.0-15.5 788-0) PLT (test code = See_Comment [Automated 777-3) message] The sy stem which generated this result transmitted reference range : 166 - 358 10*3/ ?L. The reference r comfort was not used to interpret this result as normal/abnormal . MPV (test code = 10.5 fL 9.5-12.9 89728-9) NRBC/100 WBC (test See_Comment [Automat ed code = 9782010828) message] The system which generated this result transmitted reference range : 0.0 - 10.0 /100 WBCs. The refer ence range was not u sed to interpret th is result as normal/abnormal . NRBC x10^3 (test code <0.01 See_Comment [Auto mated = 4395756159) message] The s [address] which generated this result transmitted reference range : 10*3/?L. The reference range was not used to interpret this result as normal/abnormal . GRAN MAT (NEUT) % 76.1 % (test code = 770-8) IMM GRAN % (test code 0.40 % = 3575455946) LYMPH % (test code = 8.1 % 736-9) MONO % (test code = 11.4 % 5905-5) EOS % (test code = 3.4 % 713-8) BASO % (test code = 0.6 % 706-2) GRAN MAT x10^3(ANC) 7.65 10*3/uL 1.88-7.09 H (test code = 2463699999) IMM GRAN x10^3 (test 0.04 10*3/uL 0.00-0.06 code = 3718894089) LYMPH x10^3 (test code 0.81 10*3/uL 1.32-3.29 L = 731-0) MONO x10^3 (test code 1.14 10*3/uL 0.33-0.92 H = 742-7) EOS x10^3 (test code = 0.34 10*3/uL 0.03-0.39 711-2) BASO x10^3 (test code 0.06 10*3/uL 0.01-0.07 = 704-7) Lab Interpretation Abnormal (test code = 69848-5) General acute hospital GLUCOSE (AUTOMATED)2021-05-26 02:01:52 Test Item Value Reference Range Interpretation Comments POCT GLU (test code = 7122042652) 116 mg/dL 70-110 H Lab Interpretation (test code = Abnormal 46609-2) General acute hospital GLUCOSE (AUTOMATED)2021-05-25 21:44:21 Test Item Value Reference Range Interpretation Comments POCT GLU (test code = 138 mg/dL 70-110 H Notifi ed Provider [id number]) Lab Interpretation (test Abnormal code = 22362-8) [id number] 11:[facility]41 Test Item Value Reference Interpretation Comments Range TROPONIN I (test 0.009 ng/mL See_Comment [Automated code = 7307565902) message] The system which generated this result [...] biotin. Lab Interpretation Normal (test code = 60011-7) [id number] 11:23:38 Test Item Value Reference Range Interpretation Comments NT-proBNP (test code 4990 pg/mL See_Comment H [Autom ated = 0836767667) message] The system which generated this result transmitted reference range : <=125. The reference range was not used to interpret this result as normal/abnormal . JONATHAN (test code = JONATHAN) Biotin has been reported to cause a negative bias, interpret results relative to patient's use of biotin. Lab Interpretation Abnormal (test code = 37922-8) [facility] (62728)2021-05-25 11:14:39 Test Item Value Reference Range Interpretation Comments NA (test code = 143 mmol/L 135-145 1759603747) K (test code = 4.9 mmol/L 3.5-5.0 5238313865) CL (test code = 108 mmol/L 98-108 7200275273) CO2 TOTAL (test code = 28 mmol/L 23-31 8576435490) AGAP (test code = 2-16 8302907811) BUN (test code = 58 mg/dL 7-23 H 3774999309) GLUCOSE (test code = 307 mg/dL 70-110 H 7657829740) CREATININE (test code = 1.72 mg/dL 0.50-1.04 H 2659834586) TOTAL BILI (test code = 0.5 mg/dL 0.1-1.3 7277340900) CALCIUM (test code = 9.3 mg/dL 8.6-10.6 6226664662) T PROTEIN (test code = 7.3 g/dL 6.3-8.2 5961823313) ALBUMIN (test code = 3.7 g/dL 3.5-5.0 9354283484) ALK PHOS (test code = 145 U/L 34-122 H 0977187495) ALTv (test code = 19 U/L 5-35 1742-6) AST(SGOT) (test code = 21 U/L 13-40 8810107561) eGFR (test code = mL/min/1.73m2 6020531065) JONATHAN (test code = JONATHAN) Association of [...] tests). Lab Interpretation Abnormal (test code = 58670-1) General acute hospital WITH [id number] 11:06:20 Test Item Value Reference Range Interpretation [...] (test code = 55.3 fL 39.0-49.9 H 09210-4) RDW-CV (test code = 15.0 % 12.0-15.5 788-0) PLT (test code = See_Comment H [Automated 777-3) message] The system which generated this result transmit cathy reference range : 166 - 358 10*3/ ?L. The reference range was not u sed to interpret th is result as normal/abnormal . MPV (test code = 11.0 fL 9.5-12.9 67247-6) NRBC/100 WBC (test See_Comment [Automat ed code = 1486686939) message] The system which generated this result transmit cathy reference range : 0.0 - 10.0 /100 WBCs. The reference range was not used to interpret this result as normal/abnormal . NRBC x10^3 (test code <0.01 See_Comment [Auto mated = 1336985249) message] The system which generated this result transmit cathy reference range : 10*3/?L. The reference range was not used to interpret this result as normal/abnormal . GRAN MAT (NEUT) % 80.3 % (test code = 770-8) IMM GRAN % (test code 1.00 % = 5390613722) LYMPH % (test code = 5.8 % 736-9) MONO % (test code = 8.9 % 5905-5) EOS % (test code = 3.1 % 713-8) BASO % (test code = 0.9 % 706-2) GRAN MAT x10^3(ANC) 12.37 10*3/uL 1.88-7.09 H (test code = 1241289428) IMM GRAN x10^3 (test 0.15 10*3/uL 0.00-0.06 H code = 1569540133) LYMPH x10^3 (test code 0.90 10*3/uL 1.32-3.29 L = 731-0) MONO x10^3 (test code 1.38 10*3/uL 0.33-0.92 H = 742-7) EOS x10^3 (test code = 0.48 10*3/uL 0.03-0.39 H 711-2) BASO x10^3 (test code 0.14 10*3/uL 0.01-0.07 H = 704-7) Lab Interpretation Abnormal (test code = 15747-9) [facility]:11[facility] Test Item Value Reference Range Interpretation Comments GLUBED (test code = GLUBED) 175 MG/DL 70-105 H COVID 19 Asymptomatic IH [id number] 13:04:00 Test Item Value Reference Range Interpretation [...] clinical signs and symptomsconsist ent with COVID-19. [id number] 11:40:00 Test Item Value Reference Range Interpretation Comments GLUBED (test code = GLUBED) 170 MG/DL 70-105 H [id number] 08:13:00 Test Item Value Reference Range Interpretation Comments GLUBED (test code = GLUBED) 90 MG/DL 70-105 N COMPREHENSIVE METABOLIC [id number] 04:42:00 Test Item Value Reference Range Interpretation [...] ALKP) Reference Range Oct 2020 CBC W/AUTO [id number] 04:29:00 Test Item Value Reference Range Interpretation [...] = BA#) 0.04 x10 3/uL 0.0-0.20 N [id number] 20:58:00 Test Item Value Reference Range Interpretation Comments GLUBED (test code = GLUBED) 229 MG/DL 70-105 H [id number] 17:01:00 Test Item Value Reference Range Interpretation Comments GLUBED (test code = GLUBED) 180 MG/DL 70-105 H [id number] 11:46:00 Test Item Value Reference Range Interpretation Comments GLUBED (test code = GLUBED) 111 MG/DL 70-105 H CBC W/MANUAL [id number] 10:20:00 Test Item Value Reference Range Interpretation [...] HYPO) 1+ NONE SEEN A COMPREHENSIVE METABOLIC [id number] 09:18:00 Test Item Value Reference Range Interpretation [...] ALKP) Reference Range Oct 2020 CBC W/MANUAL [id number] 09:13:00 Test Item Value Reference Range Interpretation [...] code = LYMPH) % 20-40 COMPREHENSIVE METABOLIC [id number] 09:12:00 Test Item Value Reference Range Interpretation [...] PHOSPHATASE U/L 46-116 (test code = ALKP) [id number] 08:13:00 Test Item Value Reference Range Interpretation Comments GLUBED (test code = GLUBED) 102 MG/DL 70-105 N [id number] 20:53:00 Test Item Value Reference Range Interpretation Comments GLUBED (test code = GLUBED) 359 MG/DL 70-105 HH [id number] 17:47:00 Test Item Value Reference Range Interpretation Comments GLUBED (test code = GLUBED) 276 MG/DL 70-105 H [id number] 12:17:00 Test Item Value Reference Range Interpretation Comments GLUBED (test code = GLUBED) 150 MG/DL 70-105 H [id number] 07:37:00 Test Item Value Reference Range Interpretation Comments GLUBED (test code = GLUBED) 85 MG/DL 70-105 N BASIC METABOLIC [id number] 04:08:00 Test Item Value Reference Range Interpretation [...] note: New CA) Reference Range Oct 2020 [id number] 04:08:00 Test Item Value Reference Range Interpretation Comments PHOSPHOROUS (test code 3.6 mg/dL 2.4-5.1 N Pleas e note: New = PHOS) Reference Range Oct 2020 [id number] 04:08:00 Test Item Value Reference Range Interpretation Comments MAGNESIUM (test code = 3.0 mg/dL 1.6-2.6 H Pleas e note: New MAG) Reference Range Oct 2020 [id number] 04:08:00 Test Item Value Reference Range Interpretation Comments TROPONIN-I (test 18.7 pg/mL 27.36-66.23 L Please note : Units and code = TROPI) Reference Rang e have changedFeb 3, 2 021 CBC W/AUTO [id number] 03:09:00 Test Item Value Reference Range Interpretation [...] = BA#) 0.06 x10 3/uL 0.0-0.20 N [id number] 21:21:00 Test Item Value Reference Range Interpretation Comments GLUBED (test code = GLUBED) 201 MG/DL 70-105 H [id number] 17:18:00 Test Item Value Reference Range Interpretation Comments GLUBED (test code = GLUBED) 170 MG/DL 70-105 H [id number] 11:32:00 Test Item Value Reference Range Interpretation Comments GLUBED (test code = GLUBED) 175 MG/DL 70-105 H [id number] 07:34:00 Test Item Value Reference Range Interpretation Comments GLUBED (test code = GLUBED) 123 MG/DL 70-105 H BASIC METABOLIC [id number] 02:20:00 Test Item Value Reference Range Interpretation [...] note: New CA) Reference Range Oct 2020 [id number] 02:20:00 Test Item Value Reference Range Interpretation Comments MAGNESIUM (test code = 3.0 mg/dL 1.6-2.6 H Pleas e note: New MAG) Reference Range Oct 2020 CBC W/AUTO [id number] 02:09:00 Test Item Value Reference Range Interpretation [...] = BA#) 0.05 x10 3/uL 0.0-0.20 N [id number] 23:51:00 Test Item Value Reference Range Interpretation Comments GLUBED (test code = GLUBED) 206 MG/DL 70-105 H BASIC METABOLIC [id number] 20:41:00 Test Item Value Reference Range Interpretation [...] CA) Reference Range Oct 2020 BASIC METABOLIC [id number] 20:37:00 Test Item Value Reference Range Interpretation [...] CA) Reference Range Oct 2020 BASIC METABOLIC [id number] 20:31:00 Test Item Value Reference Range Interpretation [...] code = mg/dL 8.7-10.4 CA) BASIC METABOLIC [id number] 20:26:00 Test Item Value Reference Range Interpretation [...] code = mg/dL 8.7-10.4 CA) BASIC METABOLIC [id number] 20:25:00 Test Item Value Reference Range Interpretation [...] code = mg/dL 8.7-10.4 CA) BASIC METABOLIC [id number] 17:11:00 Test Item Value Reference Range Interpretation [...] CA) Reference Range Oct 2020 BASIC METABOLIC [id number] 17:10:00 Test Item Value Reference Range Interpretation [...] CA) Reference Range Oct 2020 BASIC METABOLIC [id number] 17:06:00 Test Item Value Reference Range Interpretation [...] mg/dL 74-106 GLU) BLOOD UREA NITROGEN mg/dL -23 (test code = BUN) GLOMERULAR FILTRATION mL/min >60 RATE (test code = GFR) CREATININE (test code mg/dL 0.55-1.02 = CREAT) CALCIUM (test code = mg/dL 8.7-10.4 CA) BASIC METABOLIC [id number] 17:04:00 Test Item Value Reference Range Interpretation [...] CALCIUM (test code = mg/dL 8.7-10.4 CA) [id number] 16:26:00 Test Item Value Reference Range Interpretation Comments GLUBED (test code = GLUBED) 210 MG/DL 70-105 H [id number] 12:26:00 Test Item Value Reference Range Interpretation Comments GLUBED (test code = GLUBED) 154 MG/DL 70-105 H BASIC METABOLIC [id number] 06:47:00 Test Item Value Reference Range Interpretation [...] note: New CA) Reference Range Oct 2020 [id number] 06:47:00 Test Item Value Reference Range Interpretation Comments PHOSPHOROUS (test code 3.7 mg/dL 2.4-5.1 N Pleas e note: New = PHOS) Reference Range Oct 2020 [id number] 06:47:00 Test Item Value Reference Range Interpretation Comments MAGNESIUM (test code = 3.3 mg/dL 1.6-2.6 H Pleas e note: New MAG) Reference Range Oct 2020 CBC W/AUTO [id number] 06:20:00 Test Item Value Reference Range Interpretation [...] = BA#) 0.05 x10 3/uL 0.0-0.20 N [id number] 21:57:00 Test Item Value Reference Range Interpretation Comments GLUBED (test code = GLUBED) 105 MG/DL 70-105 N [id number] 17:33:00 Test Item Value Reference Range Interpretation Comments GLUBED (test code = GLUBED) 142 MG/DL 70-105 H [id number] 12:17:00 Test Item Value Reference Range Interpretation Comments GLUBED (test code = GLUBED) 197 MG/DL 70-105 H [id number] 07:05:00 Test Item Value Reference Range Interpretation Comments GLUBED (test code = GLUBED) 109 MG/DL 70-105 H - XR CHEST 1 [id number] 04:51:00 [facility] 1950 Sex: FPatient Name: KATELIN DELGADO Unit No: [id number] EXAMS: CPT CODE: [id number] XR CHEST 1 V 27016 EXAMINATION: - XR CHEST 1 V LOCATION: 1 INDICATION/CLINICAL HISTORY: s/p PPM COMPARISON: Chest x-ray 05/17/2021. TECHNIQUE: AP view of the chest. FINDINGS: Lung bases are not included in the fqhbn-ws-adfu. Right PICC is stable in position. Left-sided pacemaker is again seen. The cardiac silhouetteis enlarged. There is unchanged pulmonary vascular congestion and mild interstitial edema. There is no pneumothorax. IMPRESSION: 1. Cardiomegaly, pulmonary vascular congestion and mild interstitial edema. 2. Lung bases are not included in the mfbbb-es-twlv for evaluation. 3. No significant change compared to yesterday exam. at 0451 Reported and signed by: Anushka Giron M.D. CC: Gerhard Zavala MD; Florentino Jenkins MD Technologist: Margaret Gaffney Fluoro Time: DAP (Gy m2): Air Kerma (mGy): Trscr Dt/Tm: 05/18/2021 (0451) by:[email or web address] Printed Date/Time: 05/18/2021 (0455) Name: KATELIN DELGADO [facility] Phys: OLIVERIO - Gerhard Zavala [address] : 1950 Age: 70 Sex: F [place] [address] Loc: P.0216 1 Exam Date: 05/18/2021 Status: ADM IN PH: FAX: PAGE 1 Signed ReportBASIC METABOLIC [id number] 03:49:00 Test Item Value Reference Range Interpretation [...] note: New CA) Reference Range Oct 2020 [id number] 03:49:00 Test Item Value Reference Range Interpretation Comments PHOSPHOROUS (test code 3.9 mg/dL 2.4-5.1 N Pleas e note: New = PHOS) Reference Range Oct 2020 [id number] 03:49:00 Test Item Value Reference Range Interpretation Comments MAGNESIUM (test code = 3.1 mg/dL 1.6-2.6 H Pleas e note: New MAG) Reference Range Oct 2020 [id number] 21:46:00 Test Item Value Reference Range Interpretation Comments GLUBED (test code = GLUBED) 268 MG/DL 70-105 H B-TYPE NATRIURETIC [id number] 20:13:00 Test Item Value Reference Range Interpretation Comments B-TYPE NATRIURETIC PEPTIDE (test 96 pg/mL <100 N code = BNP) [id number] 17:41:00 Test Item Value Reference Range Interpretation Comments GLUBED (test code = GLUBED) 281 MG/DL 70-105 H - XR CHEST 1 [id number] 15:53:00 [facility] : 1950 Sex: FPatient Name: KATELIN DELGADO Unit No: [id number] EXAMS: CPT CODE: [id number] XR CHEST 1 V 25193 Location: A1 EXAM: XR CHEST 1 VIEW [...] No acute bony abnormality is identified. IMPRESSION: 1. Lines and tubes, as above. 2. Similar to minimally improved interstitial opacities bilaterally, suggestive of interstitial pulmonary edema. 3. Persistent cardiomegaly and pulmonary vascular congestion. at 1553 Reported and signed by: SUMEET HUBER M.D. CC: Tru Webber MD; Florentino Jenkins MD Technologist: Misael Anaya FluoroTime: DAP (Gy m2): Air Kerma (mGy): Trscr Dt/Tm: 05/17/2021 (1553) by:[email or web address] Printed Date/Time: 0 05/17/2021 (1556) Name: DANNYKATELIN [facility] Phys: Tru Larsen MD [address] : 1950 Age: 70 Sex: [place] [address] Loc: P.0216 1 Exam Date: 05/17/2021 Status: ADM IN PH: FAX: PAGE 1 Signed [id number] 11:08:00 Test Item Value Reference Range Interpretation Comments GLUBED (test code = GLUBED) 205 MG/DL 70-105 H [id number] 06:27:00 Test Item Value Reference Range Interpretation Comments GLUBED (test code = GLUBED) 136 MG/DL 70-105 H - XR CHEST 1 [id number] 04:26:00 [facility] : 1950 Sex: FPatient Name: KATELIN DELGADO Unit No: [id number] EXAMS: CPT CODE: [id number] XR CHEST 1 V 98001 EXAMINATION: - XR CHEST 1 V LOCATION: 1 INDICATION/CLINICAL HISTORY: s/p PPM COMPARISON: Chest x-ray 05/16/2021. TECHNIQUE: AP view of the chest. FINDINGS: Left-sided pacemaker is stable in position.The cardiac silhouette is enlarged. There is pulmonary [...] by:[email or web address] Printed Date/Time: 05/17/2021 (0429) Name: KATELIN DELGADO [facility] Phys: Gerhard [address] : 1950 Age: 70 Sex: [place] [address] Loc: P.0216 1 Exam Date: 05/17/2021 Status: ADM IN PH: FAX: PAGE 1 Signed [id number] 22:35:00 Test Item Value Reference Range Interpretation Comments GLUBED (test code = GLUBED) 211 MG/DL 70-105 H [id number] 17:20:00 Test Item Value Reference Range Interpretation Comments GLUBED (test code = GLUBED) 216 MG/DL 70-105 H [id number] 11:28:00 Test Item Value Reference Range Interpretation Comments GLUBED (test code = GLUBED) 203 MG/DL 70-105 H [id number] 08:19:00 Test Item Value Reference Range Interpretation Comments GLUBED (test code = GLUBED) 105 MG/DL 70-105 N - XR CHEST 1 [id number] 07:42:00 [facility] : 1950 Sex: FPatient Name: KATELIN DELGADO Unit No: [id number] EXAMS: CPT CODE: [id number] XR CHEST 1 V 45333 Chest one view AP 05/16/2021 7:41 AM CLINICAL INDICATION: Pacemaker COMPARISON: 05/14/2021 LOCATION: W1 IMPRESSION: No pneumothorax is evident. Cardiomediastinal contours are stable. Pulmonary edema is improved and is now mild in degree. Support hardware is unchanged in position. at 0742 Reported and signed by: YOLANDA MALDONADO M.D. CC: Gerhard Zavala MD; Florentino Jenkins MD Technologist: Margaret Gaffney Fluoro Time: DAP (Gym2): Air Kerma (mGy): Trscr Dt/Tm: 05/16/2021 (0742) by:[email or web address] Printed Date/Time: 05/16/2021 (074 5) Name: KATELIN DELGADO [facility] Phys: Gerhard [address] : 1950 Age: 70 Sex: F [place] [address] [id number] Loc: P.0216 1 Exam Date: 05/16/2021 Status: ADM IN PH: FAX: PAGE 1 Signed ReportBASIC METABOLIC [id number] 04:19:00 Test Item Value Reference Range Interpretation [...] note: New CA) Reference Range Oct 2020 [id number] 04:19:00 Test Item Value Reference Range Interpretation Comments PHOSPHOROUS (test code 4.7 mg/dL 2.4-5.1 N Pleas e note: New = PHOS) Reference Range Oct 2020 [id number] 04:19:00 Test Item Value Reference Range Interpretation Comments MAGNESIUM (test code = 2.7 mg/dL 1.6-2.6 H Pleas e note: New MAG) Reference Range Oct 2020 CBC W/AUTO [id number] 04:01:00 Test Item Value Reference Range Interpretation [...] = BA#) 0.08 x10 3/uL 0.0-0.20 N [id number] 20:24:00 Test Item Value Reference Range Interpretation Comments GLUBED (test code = GLUBED) 155 MG/DL 70-105 H [id number] 16:46:00 Test Item Value Reference Range Interpretation Comments GLUBED (test code = GLUBED) 181 MG/DL 70-105 H [id number] 08:08:00 Test Item Value Reference Range Interpretation Comments GLUBED (test code = GLUBED) 174 MG/DL 70-105 H BASIC METABOLIC [id number] 05:15:00 Test Item Value Reference Range Interpretation [...] CA) Reference Range Oct 2020 COMPREHENSIVE METABOLIC [id number] 05:15:00 Test Item Value Reference Range Interpretation [...] code = ALKP) Reference Range Oct 2020 [id number] 05:15:00 Test Item Value Reference Range Interpretation Comments PHOSPHOROUS (test code 4.6 mg/dL 2.4-5.1 N Pleas e note: New = PHOS) Reference Range Oct 2020 [id number] 05:15:00 Test Item Value Reference Range Interpretation Comments MAGNESIUM (test code = 2.5 mg/dL 1.6-2.6 N Pleas e note: New MAG) Reference Range Oct 2020 CBC W/AUTO [id number] 05:01:00 Test Item Value Reference Range Interpretation [...] = BA#) 0.05 x10 3/uL 0.0-0.20 N [id number] 21:01:00 Test Item Value Reference Range Interpretation Comments GLUBED (test code = GLUBED) 290 MG/DL 70-105 H [id number] 17:35:00 Test Item Value Reference Range Interpretation Comments GLUBED (test code = GLUBED) 202 MG/DL 70-105 H [id number] 11:54:00 Test Item Value Reference Range Interpretation Comments GLUBED (test code = GLUBED) 261 MG/DL 70-105 H Covid 19 InHouse [id number] 10:51:00 Test Item Value Reference Range Interpretation Comments Covid 19 Negative Negative A negative resu lt does not InHouse NTX preclude the SA RS-COV-2 (test code = viralinfection and should not be [id number]) used as the so le basis forpatient [...] performancechar acteristics were determined by [facility]. Thi s test has notbeen FDA aurora [...] NoAge at collection: Y- XR CHEST 1 [id number] 08:06:00 [facility] : 1950 Sex: FPatient Name: KATELIN DELGADO Unit No: [id number] EXAMS: CPT CODE: [id number] XR CHEST 1 V 34104 CHEST, SINGLE VIEW DICTATION LOCATION A1 HISTORY: Infiltrates. A single view of the chest at 4:34 AM was compared to a prior exam from May 13, 2021. FINDINGS: Bilateral interstitial infiltrates are stable along with cardiomegaly and pulmonary vascular congestion. Right arm PICC is unchanged. No new findings are seen. IMPRESSION: No change from the prior exam. at 0806 Reported and signed by: Eddie Muniz Jr, MD CC: Gerhard Zavala MD; Florentino Jenkins MD Technologist: Margaret Gaffney Fluoro Time: DAP (Gy m2): Air K damaris (mGy): Trscr Dt/Tm: 05/14/2021 (805) by:Viky Printed Date/Time: 05/14/2021 (808) Name: KATELIN DELGADO [facility] Phys: OLIVERIO Giulia ZavalaGerhard [address] : 1950 Age: 70 Sex: [place] [address] Loc: P.0216 1 Exam Date: 05/14/2021 Status: ADM IN PH: FAX: PAGE 1 Signed [id number] 07:36:00 Test Item Value Reference Range Interpretation Comments GLUBED (test code = GLUBED) 146 MG/DL 70-105 H BASIC METABOLIC [id number] 04:27:00 Test Item Value Reference Range Interpretation [...] note: New CA) Reference Range Oct 2020 [id number] 04:27:00 Test Item Value Reference Range Interpretation Comments PHOSPHOROUS (test code 4.6 mg/dL 2.4-5.1 N Pleas e note: New = PHOS) Reference Range Oct 2020 [id number] 04:27:00 Test Item Value Reference Range Interpretation Comments MAGNESIUM (test code = 2.4 mg/dL 1.6-2.6 N Pleas e note: New MAG) Reference Range Oct 2020 CBC W/AUTO [id number] 04:02:00 Test Item Value Reference Range Interpretation [...] = BA#) 0.07 x10 3/uL 0.0-0.20 N [id number] 20:38:00 Test Item Value Reference Range Interpretation Comments GLUBED (test code = GLUBED) 314 MG/DL 70-105 HH [id number] 17:22:00 Test Item Value Reference Range Interpretation Comments GLUBED (test code = GLUBED) 260 MG/DL 70-105 H [id number] 13:18:00 Test Item Value Reference Range Interpretation Comments GLUBED (test code = GLUBED) 264 MG/DL 70-105 H [id number] 08:50:00 Test Item Value Reference Range Interpretation Comments GLUBED (test code = GLUBED) 196 MG/DL 70-105 H - XR CHEST 1 [id number] 08:05:00 [facility] : 1950 Sex: FPatient Name: KATELIN DELGADO Unit No: [id number] EXAMS: CPT CODE: [id number] XR CHEST 1 V 77779 Portable AP chest, 1 view Location Code: B2 CLINICAL HISTORY: Evaluation of infiltrates, ET tube, and lines COMPARISON: 05/12/2021 COMMENT: Mild central congestion remains. There is no consolidation or effusion. The cardiomediastinal silhouette is stable. Left chest pacer again noted. There is no acuteosseous abnormality. Right upper extremity PICC line is stable. IMPRESSION: No significant interval change. at 0805 Reported and signed by: MANUEL NOVOA M.D. CC: Gerhard Zavala MD; Florentino Jenkins MD Technologist: Fab Barajas Time: DAP (Gy m2): Air Kerma (mGy): Trscr Dt/Tm: 05/13/2021 (804) by:[email or web address] Printed Date/Time: 05/13/2021 (807) Name: KATELIN DELGADO [facility] Phys: Gerhard Madison [address] : 1950 Age: 70 Sex: [place] [address] Loc: P.0216 1 Exam Date: 05/13/2021 Status: [...] note: New CA) Reference Range Oct 2020 [id number] 06:30:00 Test Item Value Reference Range Interpretation Comments PHOSPHOROUS (test code 4.8 mg/dL 2.4-5.1 N Pleas e note: New = PHOS) Reference Range Oct 2020 [id number] 06:30:00 Test Item Value Reference Range Interpretation Comments MAGNESIUM (test code = 2.4 mg/dL 1.6-2.6 N Pleas e note: New MAG) Reference Range Oct 2020 CBC W/AUTO [id number] 06:27:00 Test Item Value Reference Range Interpretation [...] x10 3/uL 0.0-0.20 N COVID 19 INHOUSE [id number] 23:23:00 Test Item Value Reference Range Interpretation Comments COVID 19 INHOUSE NEGATIVE NEGATIVE Negative re sults, from AG (test code = patients wit h symptom onset [id number]) beyondfive days , should be treated as [...] omsconsistent with COVID-19. Spec Comments: FAMILY/VISITORS TESTED [id number] 21:03:00 Test Item Value Reference Range Interpretation Comments GLUBED (test code = GLUBED) 186 MG/DL 70-105 H [id number] 17:55:00 Test Item Value Reference Range Interpretation Comments GLUBED (test code = GLUBED) 231 MG/DL 70-105 H [id number] 17:55:00 Test Item Value Reference Range Interpretation Comments GLUBED (test code = GLUBED) 166 MG/DL 70-105 H BASIC METABOLIC [id number] 11:42:00 Test Item Value Reference Range Interpretation [...] note: New CA) Reference Range Oct 2020 [id number] 11:42:00 Test Item Value Reference Range Interpretation Comments PHOSPHOROUS (test code 4.0 mg/dL 2.4-5.1 N Pleas e note: New = PHOS) Reference Range Oct 2020 [id number] 11:42:00 Test Item Value Reference Range Interpretation Comments MAGNESIUM (test code = 2.2 mg/dL 1.6-2.6 N Pleas e note: New MAG) Reference Range Oct 2020 BASIC METABOLIC [id number] 11:26:00 Test Item Value Reference Range Interpretation [...] note: New CA) Reference Range Oct 2020 [id number] 11:26:00 Test Item Value Reference Range Interpretation Comments PHOSPHOROUS (test code = PHOS) mg/dL 2.4-5.1 [id number] 11:26:00 Test Item Value Reference Range Interpretation Comments MAGNESIUM (test code = MAG) mg/dL 1.6-2.6 BASIC METABOLIC [id number] 11:25:00 Test Item Value Reference Range Interpretation [...] CALCIUM (test code = mg/dL 8.7-10.4 CA) [id number] 11:25:00 Test Item Value Reference Range Interpretation Comments PHOSPHOROUS (test code = PHOS) mg/dL 2.4-5.1 [id number] 11:25:00 Test Item Value Reference Range Interpretation Comments MAGNESIUM (test code = MAG) mg/dL 1.6-2.6 CBC W/AUTO [id number] 11:09:00 Test Item Value Reference Range Interpretation [...] = BA#) 0.04 x10 3/uL 0.0-0.20 N [id number] 10:43:00 Test Item Value Reference Range Interpretation Comments GLUBED (test code = GLUBED) 289 MG/DL 70-105 H - XR CHEST 1 [id number] 08:20:00 [facility] 1950 Sex: FPatient Name: KATELIN DELGADO Unit No: [id number] EXAMS: CPT CODE: [id number] XR CHEST 1 V 26163 Portable AP chest, 1 view Location Code: [...] Kerma (mGy): Trscr Dt/Tm: 05/12/2021 (0820) by:[email or web address] Printed Date/Time: 05/12/2021 (0824) Name: KATELIN DELGADO [facility] Phys: Gerhard Madison [address] : 1950 Age: 70 Sex: [place] [address] Loc: P.0216 1 Exam Date: 05/12/2021 Status: ADM IN PH: FAX: PAGE 1 Signed ReportBASIC METABOLIC PANEL 2021-05-12 04:00:00 Test Item Value Reference Range Interpretation [...] note: New CA) Reference Range Oct 2020 [id number] 04:00:00 Test Item Value Reference Range Interpretation Comments PHOSPHOROUS (test code 4.5 mg/dL 2.4-5.1 N Pleas e note: New = PHOS) Reference Range Oct 2020 [id number] 04:00:00 Test Item Value Reference Range Interpretation Comments MAGNESIUM (test code = 2.3 mg/dL 1.6-2.6 N Pleas e note: New MAG) Reference Range Oct 2020 CBC W/AUTO [id number] 03:38:00 Test Item Value Reference Range Interpretation [...] = BA#) 0.04 x10 3/uL 0.0-0.20 N [id number] 19:56:00 Test Item Value Reference Range Interpretation Comments GLUBED (test code = GLUBED) 227 MG/DL 70-105 H [id number] 16:40:00 Test Item Value Reference Range Interpretation Comments GLUBED (test code = GLUBED) 223 MG/DL 70-105 H [id number] 10:39:00 Test Item Value Reference Range Interpretation Comments GLUBED (test code = GLUBED) 295 MG/DL 70-105 H - XR CHEST 1 [id number] 09:36:00 [facility] : 1950 Sex: FPatient Name: KATELIN DELGADO Unit No: [id number] EXAMS: CPT CODE: [id number] XR CHEST 1 V 23338 EXAM: Chest one view. Location: A1 HISTORY: pulmonary edema? COMPARISON: 05/10/2021 FINDINGS: Pacemaker generator overlies the left axilla with leads in right atrium and right ventricle. Cardiac silhouette enlargement is unchanged. There is redemonstration of right subclavian PICC line with tip at themid to distal SVC. Diffuse interstitial opacities are [...] 05/11/2021 (0936) by:[email or web address] PrintedDate/Time: 05/11/2021 (0939) Name: HILL,KATELIN [facility] Phys: OLIVERIO - Gerhard Zavala [address] : 1950 Age: 70 Sex: F [place] [address] [id number] Loc: P.0216 1 Exam Date: 05/11/2021 Status: ADM IN PH: FAX: PAGE 1 Signed [id number] 07:41:00 Test Item Value Reference Range Interpretation Comments GLUBED (test code = GLUBED) 184 MG/DL 70-105 H BASIC METABOLIC [id number] 04:51:00 Test Item Value Reference Range Interpretation [...] note: New CA) Reference Range Oct 2020 [id number] 04:51:00 Test Item Value Reference Range Interpretation Comments PHOSPHOROUS (test code 4.0 mg/dL 2.4-5.1 N Pleas e note: New = PHOS) Reference Range Oct 2020 [id number] 04:51:00 Test Item Value Reference Range Interpretation Comments MAGNESIUM (test code = 2.3 mg/dL 1.6-2.6 N Pleas e note: New MAG) Reference Range Oct 2020 CBC W/AUTO [id number] 04:40:00 Test Item Value Reference Range Interpretation [...] = BA#) 0.04 x10 3/uL 0.0-0.20 N [id number] 20:14:00 Test Item Value Reference Range Interpretation Comments GLUBED (test code = GLUBED) 219 MG/DL 70-105 H [id number] 16:56:00 Test Item Value Reference Range Interpretation Comments GLUBED (test code = GLUBED) 214 MG/DL 70-105 H [id number] 13:08:00 Test Item Value Reference Range Interpretation Comments GLUBED (test code = GLUBED) 219 MG/DL 70-105 H [id number] 10:08:00 Test Item Value Reference Range Interpretation Comments GLUBED (test code = GLUBED) 228 MG/DL 70-105 H - XR CHEST 1 [id number] 08:15:00 [facility] : 1950 Sex: FPatient Name: KATELIN DELGADO Unit No: [id number] EXAMS: CPT CODE: [id number] XR CHEST 1 V 61012 CLINICAL HISTORY: pulmonary edema. LOCATION: A1 FINDINGS: Comparison is made with a previous study dated May 09, 2021. A portable AP view of the chest is dated 05/10/2021 at 3:15 AM. There is stable mild cardiomegaly. No change in tubes or lines. There is pulmonary vascular congestion and moderate diffuse interstitial prominence with moderate bibasilar infiltrates. No definite pleural effusions. No acute skeletal or soft tissue abnormalities. IMPRESSION: 1. No significant change. at 0815 Reported and signed by: RA CASTRO M.D. CC: Florentino Jenkins MD; Ad Brand MD Technologist: Margaret Gaffney Fluoro Time: DAP (Gy m2): Air Kerma (mGy): Trscr Dt/Tm: 05/10/2021 (0815) by:[email or web address] Printed Date/Time: 05/10/2021 (0818) Name: KATELIN DELGADO [facility] Phys: Ad Kang MD [address]: 1950 Age: 70 Sex: [place] [address] Loc: P.0216 1 Exam Date: 05/10 Status: ADM IN PH: FAX: PAGE 1 Signed ReportBASIC METABOLIC PANEL 2021-05-10 04:47:00 Test Item Value Reference Range Interpretation [...] note: New CA) Reference Range Oct 2020 [id number] 04:47:00 Test Item Value Reference Range Interpretation Comments PHOSPHOROUS (test code 3.4 mg/dL 2.4-5.1 N Pleas e note: New = PHOS) Reference Range Oct 2020 [id number] 04:47:00 Test Item Value Reference Range Interpretation Comments MAGNESIUM (test code = 2.1 mg/dL 1.6-2.6 N Pleas e note: New MAG) Reference Range Oct 2020 CBC W/AUTO [id number] 04:30:00 Test Item Value Reference Range Interpretation [...] 0.03 x10 3/uL 0.0-0.20 N BASIC METABOLIC [id number] 21:50:00 Test Item Value Reference Range Interpretation [...] note: New CA) Reference Range Oct 2020 [id number] 21:50:00 Test Item Value Reference Range Interpretation Comments PHOSPHOROUS (test code 3.3 mg/dL 2.4-5.1 N Pleas e note: New = PHOS) Reference Range Oct 2020 [id number] 21:50:00 Test Item Value Reference Range Interpretation Comments MAGNESIUM (test code = 2.1 mg/dL 1.6-2.6 N Pleas e note: New MAG) Reference Range Oct 2020 BASIC METABOLIC [id number] 21:48:00 Test Item Value Reference Range Interpretation [...] note: New CA) Reference Range Oct 2020 [id number] 21:48:00 Test Item Value Reference Range Interpretation Comments PHOSPHOROUS (test code = PHOS) mg/dL 2.4-5.1 [id number] 21:48:00 Test Item Value Reference Range Interpretation Comments MAGNESIUM (test code = MAG) mg/dL 1.6-2.6 BASIC METABOLIC [id number] 21:43:00 Test Item Value Reference Range Interpretation [...] CALCIUM (test code = mg/dL 8.7-10.4 CA) [id number] 21:43:00 Test Item Value Reference Range Interpretation Comments PHOSPHOROUS (test code = PHOS) mg/dL 2.4-5.1 [id number] 21:43:00 Test Item Value Reference Range Interpretation Comments MAGNESIUM (test code = MAG) mg/dL 1.6-2.6 BASIC METABOLIC [id number] 21:42:00 Test Item Value Reference Range Interpretation [...] CALCIUM (test code = mg/dL 8.7-10.4 CA) [id number] 21:42:00 Test Item Value Reference Range Interpretation Comments PHOSPHOROUS (test code = PHOS) mg/dL 2.4-5.1 [id number] 21:42:00 Test Item Value Reference Range Interpretation Comments MAGNESIUM (test code = MAG) mg/dL 1.6-2.6 - XR CHEST 1 [id number] 20:34:00 [facility] : 1950 Sex: FPatient Name: KATELIN DELGADO Unit No: [id number] EXAMS: CPT CODE: [id number] XR CHEST 1 V 31062 Examination: One view chest x-ray Location code: H60 Comparison: 05/09/2021 Discussion: Clinical history is remarkable for PICC line placement. Right-sided PICC line is identified with its tip in the superior vena cava. Heart is slightly enlarged. Changes of pulmonary vascular congestion/interstitial edema essentially unchanged. Small pleural effusions are likely as well. Left subclavian pacemaker leads are identified with their tips in the right atrium and right ventricle respectively. Impression: 1. Findings consistent with pulmonary vascular congestion/mild interstitial edema. 2. Small pleural ef fusions. at 2033 Reported and signed by: Miguel Spence M.D. CC: Florentino Jenkins MD; Misael Almaguer MD Technologist: Davina Barajas Time: DAP (Gy m2): Air Kerma (mGy): Trscr Dt/Tm: 05/09/2021 (2033) by:[email or web address] Printed Date/Time: 05/09/2021 (2049) Name: KATELIN DELGADO [facility] Phys: Misael Rabago [address] : 1950 Age: 70 Sex: [place] [address] Loc: P.0216 1 Exam Date: 05/09/2021 Status: ADM IN PH: FAX: PAGE 1 Signed [id number] 20:16:00 Test Item Value Reference Range Interpretation Comments GLUBED (test code = GLUBED) 276 MG/DL 70-105 H [id number] 15:55:00 Test Item Value Reference Range Interpretation Comments GLUBED (test code = GLUBED) 222 MG/DL 70-105 H Covid 19 InHouse [id number] 12:01:00 Test Item Value Reference Range Interpretation Comments Covid 19 Negative Negative A negative resu lt does not InHouse NTX preclude the SA RS-COV-2 (test code = viralinfection and should not be [id number]) used as the so le basis forpatient [...] performancechar acteristics were determined by [facility] Thi s test has notbeen FDA aurora [...] congregate care setting? No? NoAge at collection: [id number] 11:58:00 Test Item Value Reference Range Interpretation Comments GLUBED (test code = GLUBED) 255 MG/DL 70-105 H - XR CHEST 1 [id number] 09:12:00 [facility] : 1950 Sex: FPatient Name: KATELIN DELGADO Unit No: [id number] EXAMS: CPT CODE: [id number] XR CHEST 1 V 76572 CLINICAL HISTORY: SOB. LOCATION: A1 FINDINGS: Comparison [...] Jenkins MD; Ad Brand MD Technologist: Taylor Casillas Time: DAP (Gy m2): Air Kerma (mGy): Trscr Dt/Tm: 05/09/2021 (09) by:[email or web address] Printed Date/Time: 05/09/2021 (0915) Name: KATELIN DELGADO [facility] Phys: Ad Kang MD[address] : 1950 Age: 70 Sex: [place] [address] Loc: P.0216 1 Exam Date: 05/09/2021 Status: ADM IN PH: FAX: PAGE 1 Signed Report- XR CHEST 1 V 2021-05-09 07:48:00 [facility] : 1950 Sex: FPatient Name: KATELIN DELGADO Unit No: [id number] EXAMS: CPT CODE: [id number] XR CHEST 1 V 87600 CHEST, SINGLE VIEW DICTATION LOCATION A1 HISTORY: [...] (0748) by:Viky Printed Date/Time: 05/09/2021 (0751) Name: KATELIN DELGADO [facility] Phys: Gerhard Madison [address] : 1950 Age: 70 Sex: [place] [address] Loc: P.0216 1 Exam Date: 05/09/2021 Status: ADMIN PH: FAX: PAGE 1 Signed [id number] 07:24:00 Test Item Value Reference Range Interpretation Comments GLUBED (test code = GLUBED) 213 MG/DL 70-105 H PROTHROMBIN [id number] 05:33:00 Test Item Value Reference Range Interpretation [...] 2.5-3.5recurren t systemic emboli sm. THROMBOPLASTIN TIME [id number] 05:33:00 Test Item Value Reference Interpretation Comments Range THROMBOPLASTIN TIME 21.2 SECONDS 23.8-34.8 L NO CLOT PARTIAL (test code DETECTEDI NTERPRETATIVE = PTT) DATA:Therapeuti c range: Unfractionated heparin:55 - 80 seconds Argatroban:1.5 to 3 times the baseline PT T HGBA1C - GLYCOSYLATED [id number] 05:31:00 Test Item Value Reference Range Interpretation Comments GLYCOSYLATED HEMOGLOBIN 7.7 % <5.7 H Diab etic >/= (HA1C) (test code = 6.5%Pred iabetes GLYHGB) 5.7-6.4%Normal < 5.7% COMPREHENSIVE METABOLIC [id number] 04:50:00 Test Item Value Reference Range Interpretation [...] > 190 mg/dL CORONARY RISK FACTOR 4.21 CHOL/H DL RISK MALE: (test code = RISK) 1/2 AVG 3 .43 FEMALE: 1/2 AVG 3.27 AV G 4.97 AVG 4.44 2X AVG 9.55 2X AVG 7.05 3X AVG 23.39 3X AVG 11.04~~~~~~~~~~ ~~~~~~~ ~~~~~~~~~~~~~~~ ~~~~~~~ ~~~~~~~~~~~~~~~ ~~~~~~N [facility] stefania Education (NCEP ) Guidelines:~~~~ ~~~~~~~ ~~~~~~~~~~~~~~~ ~~~~~~~ ~~~~~~~~~~~~~~~ ~~~~~~~ ~~~~~ HDL Cholesterol<4 0mg/dL: HDL Cholesterol (Major risk factor for CHD)>60mg/dL: H DL Cholesterol (Ne gative risk factor for CHD)40-59mg/dL: Borderline Risk LDL Cholesterol<1 00mg/dL : Desirable LDL -C jfcvqhegicnai11 0-159mg /dL: Borderline High Risk LDL-C csrycqidkbzld91 0-189mg /dL: High risk LDL-C concentration H DL-LDL Cholesterol is affected by a n umber of factors such as smoking, age an d sex.~~~~~~~~~~~ ~~~~~~~ ~~~~~~~~~~~~~~~ ~~~~~~~ ~~~~~~~~~~~~~~~ ~~~~~ [id number] 04:50:00 Test Item Value Reference Range Interpretation Comments PHOSPHOROUS (test code 3.9 mg/dL 2.4-5.1 N Pleas e note: New = PHOS) Reference Range Oct 2020 [id number] 04:50:00 Test Item Value Reference Range Interpretation Comments MAGNESIUM (test code = 2.5 mg/dL 1.6-2.6 N Pleas e note: New MAG) Reference Range Oct 2020 THYROID STIMULATING [id number] 04:50:00 Test Item Value Reference Range Interpretation Comments THYROID STIMULATING 1.64 mIU/mL 0.55-4.78 Please n ote: New HORMONE (test code = Referen ce Range Oct TSH) 2020 CBC W/AUTO [id number] 04:28:00 Test Item Value Reference Range Interpretation [...] = BA#) 0.06 x10 3/uL 0.0-0.20 N [id number] 19:34:00 Test Item Value Reference Range Interpretation Comments GLUBED (test code = GLUBED) 230 MG/DL 70-105 H [id number] 17:43:00 Test Item Value Reference Range Interpretation Comments GLUBED (test code = GLUBED) 251 MG/DL 70-105 H LACTIC [id number] 15:46:00 Test Item Value Reference Range Interpretation Comments LACTIC ACID (test code = LACT) 1.20 mmol/L 0.5-2.0 N COMPREHENSIVE METABOLIC [id number] 15:33:00 Test Item Value Reference Range Interpretation [...] CHOLESTEROL (test code 140 mg/dL <200 N Saud hirsch note: New = CHOL) Reference Range Oct [...] > 190 mg/dL CORONARY RISK FACTOR 3.89 CHOL/ HDL RISK MALE: (test code = RISK) 1/2 AVG 3 .43 FEMALE: 1/2 AVG 3.27 AV G 4.97 AVG 4.44 2X AVG 9.55 2X AVG 7.05 3X AVG 23.39 3X AVG 11.04~~~~~~~~~~ ~~~~~~~ ~~~~~~~~~~~~~~~ ~~~~~~~ ~~~~~~~~~~~~~~~ ~~~~~~N [facility] stefania Education (DEEP ) Guidelines:~~~~ ~~~~~~~ ~~~~~~~~~~~~~~~ ~~~~~~~ ~~~~~~~~~~~~~~~ ~~~~~~~ ~~~~~ HDL Cholesterol<4 0mg/dL: HDL Cholesterol (Major risk factor for CHD)>60mg/dL: H DL Cholesterol (Ne gative risk factor for CHD)40-59mg/dL: Borderline Risk LDL Cholesterol<1 00mg/dL : Desirable LDL -C jzplmgxdbixdu36 0-159mg /dL: Borderline High Risk LDL-C capnqzcexgdol98 0-189mg /dL: High risk LDL-C concentration H DL-LDL Cholesterol is affected by a n umber of factors such as smoking, age an d sex.~~~~~~~~~~~ ~~~~~~~ ~~~~~~~~~~~~~~~ ~~~~~~~ ~~~~~~~~~~~~~~~ ~~~~~ [id number] 15:33:00 Test Item Value Reference Range Interpretation Comments PHOSPHOROUS (test code 4.6 mg/dL 2.4-5.1 N Pleas e note: New = PHOS) Reference Range Oct 2020 [id number] 15:33:00 Test Item Value Reference Range Interpretation Comments MAGNESIUM (test code = 2.5 mg/dL 1.6-2.6 N Pleas e note: New MAG) Reference Range Oct 2020 THYROID STIMULATING [id number] 15:33:00 Test Item Value Reference Range Interpretation Comments THYROID STIMULATING 3.05 mIU/mL 0.55-4.78 N Please n ote: New HORMONE (test code = Referen ce Range Oct TSH) 2020 B-TYPE NATRIURETIC [id number] 15:31:00 Test Item Value Reference Range Interpretation Comments B-TYPE NATRIURETIC PEPTIDE (test 380 pg/mL <100 H code = BNP) COMPREHENSIVE METABOLIC [id number] 15:30:00 Test Item Value Reference Range Interpretation [...] > 190 mg/dL CORONARY RISK FACTOR 3.89 CHOL/ HDL RISK MALE: (test code = RISK) 2 AVG 3 .43 FEMALE: 1/2 AVG 3.27 AV G 4.97 AVG 4.44 2X AVG 9.55 2X AVG 7.05 3X AVG 23.39 3X AVG 11.04~~~~~~~~~~ ~~~~~~~ ~~~~~~~~~~~~~~~ ~~~~~~~ ~~~~~~~~~~~~~~~ ~~~~~~N [facility] stefania Education (NCEP ) Guidelines:~~~~ ~~~~~~~ ~~~~~~~~~~~~~~~ ~~~~~~~ ~~~~~~~~~~~~~~~ ~~~~~~~ ~~~~~ HDL Cholesterol<4 0mg/dL: HDL Cholesterol (Major risk factor for CHD)>60mg/dL: H DL Cholesterol (Ne gative risk factor for CHD)40-59mg/dL: Borderline Risk LDL Cholesterol<1 00mg/dL : Desirable LDL -C kctqzfchufgmy04 0-159mg /dL: Borderline High Risk LDL-C uzipdwbyrhsai23 0-189mg /dL: High risk LDL-C concentration H DL-LDL Cholesterol is affected by a n umber of factors such as smoking, age an d sex.~~~~~~~~~~~ ~~~~~~~ ~~~~~~~~~~~~~~~ ~~~~~~~ ~~~~~~~~~~~~~~~ ~~~~~ [id number] 15:30:00 Test Item Value Reference Range Interpretation Comments PHOSPHOROUS (test code 4.6 mg/dL 2.4-5.1 N Pleas e note: New = PHOS) Reference Range Oct 2020 [id number] 15:30:00 Test Item Value Reference Range Interpretation Comments MAGNESIUM (test code = 2.5 mg/dL 1.6-2.6 N Pleas e note: New MAG) Reference Range Oct 2020 THYROID STIMULATING [id number] 15:30:00 Test Item Value Reference Range Interpretation Comments THYROID STIMULATING HORMONE (test mIU/mL 0.55-4.78 code = TSH) COVID 19 Asymptomatic IH [id number] 15:02:00 Test Item Value Reference Range Interpretation [...] and symptomsconsist ent with COVID-19. THROMBOPLASTIN TIME [id number] 14:43:00 Test Item Value Reference Range Interpretation Comments THROMBOPLASTIN TIME 30.1 SECONDS 23.8-34.8 N INTERPRE TATIVE PARTIAL (test code = : erapeutic PTT) range: Unfractionated heparin:55 - 80 seconds Argatroban:1.5 to 3 times the basel ine PTT CBC W/AUTO [id number] 14:34:00 Test Item Value Reference Range Interpretation [...] 3/uL 0.0-0.20 N - XR CHEST 1 [id number] 14:08:00 [facility] : 1950 Sex: FPatient Name: KATELIN DELGADO Unit No: [id number] EXAMS: CPT CODE: [id number] XR CHEST 1 V 12797 CHEST, SINGLE VIEW DICTATION LOCATION A1 HISTORY: A spectral placement. A single view of the chestwas obtained at 12:05 PM. No prior exams [...] signed by: Eddie Muniz Jr, MD CC: Florentino Jenkins MD Technologist: Misael Anaya Fluoro Time: DAP (Gy m2): Air Kerma (mGy): Trscr Dt/Tm: 05/08/2021 (1408) by:Viky Printed Date/Time: 05/08/2021 (1411) Name: KATELIN DELGADO [facility] Phys: Florentino Jenkins MD [address] : 1950 Age: 70 Sex: F [place] [address] Loc: P.0216 1 Exam Date: 05/08/2021 Status: ADM IN PH: FAX: PAGE 1 Signed ReportHEMOGLOBIN [id number] 00:00:00 Test Item Value Reference Range Interpretation Comments HEMOGLOBIN A1c (test code = 97102) 7.6 % HEMOGLOBIN [id number] 00:00:00 Test Item Value Reference Range Interpretation Comments HEMOGLOBIN A1c (test code = 67353) 7.6 % HEMOGLOBIN [id number] 00:00:00 Test Item Value Reference Range Interpretation Comments HEMOGLOBIN A1c (test code = 74246) 7.6 % LIPID [id number] 00:00:00 Test Item Value Reference Range Interpretation Comments CHOLESTEROL (test code = 2210) 124 MG/DL TRIGLYCERIDES (test code = 2232) 161 MG/DL HDL CHOLESTEROL (test code = 2220) 34 MG/DL CALC LDL CHOL (test code = 2237) 66 MG/DL RISK RATIO LDL/HDL (test code = 1.94 RATIO 2238) LIPID [id number] 00:00:00 Test Item Value Reference Range Interpretation Comments CHOLESTEROL (test code = 2210) 124 MG/DL TRIGLYCERIDES (test code = 2232) 161 MG/DL HDL CHOLESTEROL (test code = 2220) 34 MG/DL CALC LDL CHOL (test code = 2237) 66 MG/DL RISK RATIO LDL/HDL (test code = 1.94 RATIO 2238) COMPREHENSIVE METABOLIC [id number] 00:00:00 Test Item Value Reference Range Interpretation Comments GLUCOSE (test code = 2217) 177 MG/DL BUN (test code = 2208) 71 MG/DL CREATININE (test code = 2214) 2.96 MG/DL eGFR AMER. (test code 18 ML/MIN/1.73 = 17663) eGFR NON- AMER. (test 16 ML/MIN/1.73 code = 77568) CALC BUN/CREAT (test code = 24 RATIO 2235) SODIUM (test code = 2231) 142 MEQ/L POTASSIUM (test code = 2228) 4.8 MEQ/L CHLORIDE (test code = 2215) 100 MEQ/L CARBON DIOXIDE (test code = 28 MEQ/L 2206) CALCIUM (test code = 2209) 9.4 MG/DL PROTEIN, TOTAL (test code = 6.6 G/DL 222) ALBUMIN (test code = 2201) 3.9 G/DL CALC GLOBULIN (test code = 2.7 G/DL 2240) CALC A/G RATIO (test code = 1.4 RATIO 2234) BILIRUBIN, TOTAL (test code = 0.4 MG/DL 2206) ALKALINE PHOSPHATASE (test 109 U/L code = 2204) AST (test code = 2218) 11 U/L ALT (test code = 2219) 15 U/L COMPREHENSIVE METABOLIC [id number] 00:00:00 Test Item Value Reference Range Interpretation Comments GLUCOSE (test code = 2217) 177 MG/DL BUN (test code = 2208) 71 MG/DL CREATININE (test code = 2214) 2.96 MG/DL eGFR AMER. (test code 18 ML/MIN/1.73 = 67284) eGFR NON- AMER. (test 16 ML/MIN/1.73 code = 30290) CALC BUN/CREAT (test code = 24 RATIO 2235) SODIUM (test code = 2231) 142 MEQ/L POTASSIUM (test code = 2228) 4.8 MEQ/L CHLORIDE (test code = 2215) 100 MEQ/L CARBON DIOXIDE (test code = 28 MEQ/L 2206) CALCIUM (test code = 2209) 9.4 MG/DL PROTEIN, TOTAL (test code = 6.6 G/DL 222) ALBUMIN (test code = 2201) 3.9 G/DL CALC GLOBULIN (test code = 2.7 G/DL 0) CALC A/G RATIO (test code = 1.4 RATIO 2234) BILIRUBIN, TOTAL (test code = 0.4 MG/DL 2206) ALKALINE PHOSPHATASE (test 109 U/L code = 2204) AST (test code = 2218) 11 U/L ALT (test code = 2219) 15 U/L HEMOGLOBIN [id number] 00:00:00 Test Item Value Reference Range Interpretation Comments HEMOGLOBIN A1c (test code = 34448) 7.6 % HEMOGLOBIN [id number] 00:00:00 Test Item Value Reference Range Interpretation Comments HEMOGLOBIN A1c (test code = 64483) 7.6 % HEMOGLOBIN [id number] 00:00:00 Test Item Value Reference Range Interpretation Comments HEMOGLOBIN A1c (test code = 58047) 7.6 % LIPID [id number] 00:00:00 Test Item Value Reference Range Interpretation Comments CHOLESTEROL (test code = 2210) 124 MG/DL TRIGLYCERIDES (test code = 2232) 161 MG/DL HDL CHOLESTEROL (test code = 2220) 34 MG/DL CALC LDL CHOL (test code = 2237) 66 MG/DL RISK RATIO LDL/HDL (test code = 1.94 RATIO 2238) LIPID [id number] 00:00:00 Test Item Value Reference Range Interpretation Comments CHOLESTEROL (test code = 2210) 124 MG/DL TRIGLYCERIDES (test code = 2232) 161 MG/DL HDL CHOLESTEROL (test code = 2220) 34 MG/DL CALC LDL CHOL (test code = 2237) 66 MG/DL RISK RATIO LDL/HDL (test code = 1.94 RATIO 2238) COMPREHENSIVE METABOLIC [id number] 00:00:00 Test Item Value Reference Range Interpretation Comments GLUCOSE (test code = 2217) 177 MG/DL BUN (test code = 2208) 71 MG/DL CREATININE (test code = 2214) 2.96 MG/DL eGFR AMER. (test code 18 ML/MIN/1.73 = 93599) eGFR NON- AMER. (test 16 ML/MIN/1.73 code = 10816) CALC BUN/CREAT (test code = 24 RATIO 2235) SODIUM (test code = 2231) 142 MEQ/L POTASSIUM (test code = 2228) 4.8 MEQ/L CHLORIDE (test code = 2215) 100 MEQ/L CARBON DIOXIDE (test code = 28 MEQ/L 220) CALCIUM (test code = 2209) 9.4 MG/DL PROTEIN, TOTAL (test code = 6.6 G/DL 222) ALBUMIN (test code = 2201) 3.9 G/DL CALC GLOBULIN (test code = 2.7 G/DL 2240) CALC A/G RATIO (test code = 1.4 RATIO 2234) BILIRUBIN, TOTAL (test code = 0.4 MG/DL 220) ALKALINE PHOSPHATASE (test 109 U/L code = 2204) AST (test code = 2218) 11 U/L ALT (test code = 2219) 15 U/L COMPREHENSIVE METABOLIC [id number] 00:00:00 Test Item Value Reference Range Interpretation Comments GLUCOSE (test code = 2217) 177 MG/DL BUN (test code = 2208) 71 MG/DL CREATININE (test code = 2214) 2.96 MG/DL eGFR AMER. (test code 18 ML/MIN/1.73 = 34477) eGFR NON- AMER. (test 16 ML/MIN/1.73 code = 69612) CALC BUN/CREAT (test code = 24 RATIO 2235) SODIUM (test code = 2231) 142 MEQ/L POTASSIUM (test code = 2228) 4.8 MEQ/L CHLORIDE (test code = 2215) 100 MEQ/L CARBON DIOXIDE (test code = 28 MEQ/L 6) CALCIUM (test code = 2209) 9.4 MG/DL PROTEIN, TOTAL (test code = 6.6 G/DL 2228) ALBUMIN (test code = 2201) 3.9 G/DL CALC GLOBULIN (test code = 2.7 G/DL 2240) CALC A/G RATIO (test code = 1.4 RATIO 2234) BILIRUBIN, TOTAL (test code = 0.4 MG/DL 2207) ALKALINE PHOSPHATASE (test 109 U/L code = 2204) AST (test code = 2218) 11 U/L ALT (test code = 2219) 15 U/L HEMOGLOBIN [id number] 00:00:00 Test Item Value Reference Range Interpretation Comments HEMOGLOBIN A1c (test code = 60585) 6.6 % HEMOGLOBIN [id number] 00:00:00 Test Item Value Reference Range Interpretation Comments HEMOGLOBIN A1c (test code = 87159) 6.6 % HEMOGLOBIN [id number] 00:00:00 Test Item Value Reference Range Interpretation Comments HEMOGLOBIN A1c (test code = 99211) 6.6 % LIPID [id number] 00:00:00 Test Item Value Reference Range Interpretation Comments CHOLESTEROL (test code = 2210) 158 MG/DL TRIGLYCERIDES (test code = 2232) 144 MG/DL HDL CHOLESTEROL (test code = 2220) 42 MG/DL CALC LDL CHOL (test code = 2237) 92 MG/DL RISK RATIO LDL/HDL (test code = 2.19 RATIO 2238) LIPID [id number] 00:00:00 Test Item Value Reference Range Interpretation Comments CHOLESTEROL (test code = 2210) 158 MG/DL TRIGLYCERIDES (test code = 2232) 144 MG/DL HDL CHOLESTEROL (test code = 2220) 42 MG/DL CALC LDL CHOL (test code = 2237) 92 MG/DL RISK RATIO LDL/HDL (test code = 2.19 RATIO 2238) COMPREHENSIVE METABOLIC [id number] 00:00:00 Test Item Value Reference Range Interpretation Comments GLUCOSE (test code = 2217) 146 MG/DL BUN (test code = 2208) 55 MG/DL CREATININE (test code = 2214) 2.77 MG/DL eGFR AMER. (test code 20 ML/MIN/1.73 = 96831) eGFR NON- AMER. (test 17 ML/MIN/1.73 code = 80108) CALC BUN/CREAT (test code = 20 RATIO [...] code = 2219) 20 U/L COMPREHENSIVE METABOLIC [id number] 00:00:00 Test Item Value Reference Range Interpretation Comments GLUCOSE (test code = 2217) 146 MG/DL BUN (test code = 2208) 55 MG/DL CREATININE (test code = 2214) 2.77 MG/DL eGFR AMER. (test code 20 ML/MIN/1.73 = 77510) eGFR NON- AMER. (test 17 ML/MIN/1.73 code = 26217) CALC BUN/CREAT (test code = 20 RATIO [...] (test code = 2219) 20 U/L HEMOGLOBIN [id number] 00:00:00 Test Item Value Reference Range Interpretation Comments HEMOGLOBIN A1c (test code = 36443) 6.6 % HEMOGLOBIN [id number] 00:00:00 Test Item Value Reference Range Interpretation Comments HEMOGLOBIN A1c (test code = 62382) 6.6 % HEMOGLOBIN [id number] 00:00:00 Test Item Value Reference Range Interpretation Comments HEMOGLOBIN A1c (test code = 48190) 6.6 % LIPID [id number] 00:00:00 Test Item Value Reference Range Interpretation Comments CHOLESTEROL (test code = 2210) 158 MG/DL TRIGLYCERIDES (test code = 2232) 144 MG/DL HDL CHOLESTEROL (test code = 2220) 42 MG/DL CALC LDL CHOL (test code = 2237) 92 MG/DL RISK RATIO LDL/HDL (test code = 2.19 RATIO 2238) LIPID [id number] 00:00:00 Test Item Value Reference Range Interpretation Comments CHOLESTEROL (test code = 2210) 158 MG/DL TRIGLYCERIDES (test code = 2232) 144 MG/DL HDL CHOLESTEROL (test code = 2220) 42 MG/DL CALC LDL CHOL (test code = 2237) 92 MG/DL RISK RATIO LDL/HDL (test code = 2.19 RATIO 2238) COMPREHENSIVE METABOLIC [id number] 00:00:00 Test Item Value Reference Range Interpretation Comments GLUCOSE (test code = 2217) 146 MG/DL BUN (test code = 2208) 55 MG/DL CREATININE (test code = 2214) 2.77 MG/DL eGFR AMER. (test code 20 ML/MIN/1.73 = 17114) eGFR NON- AMER. (test 17 ML/MIN/1.73 code = 88316) CALC BUN/CREAT (test code = 20 RATIO 2235) SODIUM (test code = 2231) 143 MEQ/L POTASSIUM (test code = 2228) 5.2 MEQ/L CHLORIDE (test code = 2215) 101 MEQ/L CARBON DIOXIDE (test code = 26 MEQ/L 2205) CALCIUM (test code = 2209) 9.7 MG/DL PROTEIN, TOTAL (test code = 6.8 G/DL 222) ALBUMIN (test code = 2201) 4.0 G/DL CALC GLOBULIN (test code = 2.8 G/DL 2240) CALC A/G RATIO (test code = 1.4 RATIO 2234) BILIRUBIN, TOTAL (test code = 0.3 MG/DL 220) ALKALINE PHOSPHATASE (test 117 U/L code = 2204) AST (test code = 2218) 18 U/L ALT (test code = 2219) 20 U/L COMPREHENSIVE METABOLIC [id number] 00:00:00 Test Item Value Reference Range Interpretation Comments GLUCOSE (test code = 2217) 146 MG/DL BUN (test code = 2208) 55 MG/DL CREATININE (test code = 2214) 2.77 MG/DL eGFR AMER. (test code 20 ML/MIN/1.73 = 78331) eGFR NON- AMER. (test 17 ML/MIN/1.73 code = 80525) CALC BUN/CREAT (test code = 20 RATIO [...] RATIO 2233) BILIRUBIN, TOTAL (test code = 0.3 MG/DL 2206) ALKALINE PHOSPHATASE (test 117 U/L code = 220) AST (test code = 2218) 18 U/L ALT (test code = 221) 20 U/L CULTURE, [id number] 00:00:00 Test Item Value Reference Range Interpretation Comments CULTURE, ROUTINE (test SPECIMEN NUMBER: code = 76791) [id number] CULTURE, [id number] 00:00:00 Test Item Value Reference Range Interpretation Comments CULTURE, ROUTINE (test SPECIMEN NUMBER: code = 51945) CULTURE, [id number] 00:00:00 Test Item Value Reference Range Interpretation Comments CULTURE, ROUTINE (test SPECIMEN NUMBER: code = 15043) [id number] CULTURE, [id number] 00:00:00 Test Item Value Reference Range Interpretation Comments CULTURE, ROUTINE (test SPECIMEN NUMBER: code = 71168) [id number] CULTURE, [id number] 00:00:00 Test Item Value Reference Range Interpretation Comments CULTURE, ROUTINE (test SPECIMEN NUMBER: code = 17101) CULTURE, [id number] 00:00:00 Test Item Value Reference Range Interpretation Comments CULTURE, ROUTINE (test SPECIMEN NUMBER: code = 09370)
[2023-01-12 21:22] LABS: Arterial Blood Carboxyhemoglob 1.8 % (0-1.5); Blood O2 Saturation 99.2 % (92-98.5)
[2023-01-12 21:28] LABS: Absolute Lymphocytes (CBC) 0.6 K/uL (0.7-4.9); Hematocrit 29.5 % (36.0-45.0); Lymphocytes % 7.8 % (15.3-44.8); MCV 86.3 fL (80-100); MPV 8.5 fL (7.6-11.3); Protime INR 1.9; RBC Red Blood Cell Count 3.41 M/uL (3.86-4.86)
[2023-01-12 21:49] LABS: ALT/SGPT 20 U/L (13-56); AST/SGOT 9 U/L (15-37); Albumin 3.1 g/dL (3.4-5.0); Alkaline Phosphatase 100 U/L (45-117); BUN Blood Urea Nitrogen 69 mg/dL (7-18); Bicarbonate 37 mEq/L (21-32); Bilirubin Total 0.3 mg/dL (0.2-1.0); Glomerular Filtration Rate 19 ml/min (=/>90); Glucose Level 191 mg/dL (74-106); Magnesium 2.5 mg/dL (1.6-2.4); NT PRO-BNP 5225 pg/mL (<125); Potassium 3.8 mEq/L (3.5-5.1); Protein, Total 6.9 g/dL (6.4-8.2); Sodium Level 140 mEq/L (136-145); Troponin High Sensitivity 48.6 pg/mL (<58.9)
--- NOTE | 2023-01-12 21:55 | RAD REPORT ---
EXAM DESCRIPTION: RADChest Single View01/12/2023 9:48 pm CLINICAL HISTORY: SOB COMPARISON: Chest Single View dated 12/31/2022; Chest Pa And Lat (2 Views) dated 10/28/2021; Chest Sin gle View dated 06/24/2021; Chest Single View dated 05/08/2021 TECHNIQUE: Portable AP view of the chest. FINDINGS: The lungs show no focal consolidation. Mild bibasilar interstitial prominence. No pneumoth orax or effusion. Heart is again at the upper limit of normal in size The mediastinal contours are un remarkable. Left chest wall pacer/AICD in place. IMPRESSION: No focal consolidation. Bibasilar interstitial prominence, could reflect mild atelectasi s or edema. .
[2023-01-12 22:00] LABS: Bilirubin Direct < 0.1 mg/dL (0-0.2)
--- NOTE | 2023-01-13 00:39 | EDPHYS ---
Physician Documentation [facility] Name: Nhung Munson Age: 72 yrs Sex: Female : 1950 Arrival Date: 01/12/2023 Time: 20:43 Bed 14 Private MD: ED Physician Richmond Nieto HPI: 01/12 20:54 This 72 yrs old Female presents to ER via EMS with complaints of Shortness Of sp4 Breath. 01/13 00:23 Very pleasant 72-year-old female with a history of congestive heart failure, atrial sp4 fibrillation, cardiac pacemaker, diabetes type 2, CKD 4, iron deficiency anemia, hypertension, hyperlipidemia, hypothyroidism, presents with acute worsening dyspnea. Patient states that today at home she was more short of breath than usual, prompting her to increase her oxygen to 4 L flow, also she got up to go to the bathroom with her walker became dizzy lightheaded and very dyspneic, EMS was called for the patient brought her here in hemodynamically stable condition. . 00:25 Patient denied chest pains. . sp4 00:25 Patient was managed here at the hospital 12/31/2022 through 01/05/2023 for the sp4 following conditions acute on chronic diastolic heart failure, oxygen dependent condition, atrial fibrillation, volume overload, iron deficiency anemia, and was managed here with IV Lasix for diuresis. Patient's medications include allopurinol, Eliquis, atorvastatin, carvedilol, vitamin D3, ferrous sulfate, loratadine, melatonin, digoxin, lisinopril, furosemide 80 mg p.o. twice daily. Historical: - Allergies: 01/12 20:51 Amoxicillin; kd3 20:51 Bactrim DS; kd3 20:51 Demerol; kd3 - PMHx: 20:51 Atrial Fib; Diabetes - IDDM; High Cholesterol; Hypertension; Renal Problems; kd3 - Immunization history:: Adult Immunizations up to date. - Social history:: Smoking status: Patient denies any tobacco usage or history of. - Family history:: not pertinent. ROS: 01/13 00:28 Constitutional: Negative for fever, chills, and weight loss, positive for generalized sp4 weakness, dizziness, feeling unwell Eyes: Negative for injury, pain, redness, and discharge, ENT: Negative for injury, pain, and discharge, Neck: Negative for injury, pain, and swelling, Cardiovascular: Negative for chest pain, palpitations, positive bilateral lower extremity chronic edema Respiratory: Negative for cough, wheezing, and pleuritic chest pain, positive for dyspnea and dyspnea on exertion Abdomen/GI: Negative for abdominal pain, nausea, vomiting, diarrhea, and constipation, Back: Negative for injury and pain, : Negative for injury, bleeding, discharge, and swelling, MS/Extremity: Negative for injury and deformity, positive for chronic bilateral lower extremity edema, also chronic left lower extremity venous stasis ulcers Skin: Negative for injury, rash, and discoloration, positive for chronic left lower extremity venous stasis ulcers Neuro: Negative for headache, weakness, numbness, tingling, and seizure, Psych: Negative for depression, anxiety, Allergy/Immunology: Negative for hives, rash, and allergies Endocrine: Negative for neck swelling, polydipsia, polyuria, polyphagia, and weight changes Hematologic/Lymphatic: Negative for swollen nodes, abnormal bleeding, and unusual bruising Exam: 00:28 Constitutional: This is a well developed, well nourished patient who is awake, alert, sp4 this is morbidly obese female, no acute distress, generalized pallor, bilateral lower extremity edema that appear chronic. Patient states she is ambulatory with a walker Head/Face: Normocephalic, atraumatic. Eyes: Pupils equal round and reactive to light, extra-ocular motions intact. Lids and lashes normal. Conjunctiva and sclera are not injected. Cornea within normal limits. Periorbital areas with no swelling, redness, or edema. ENT: Nares patent. No nasal discharge, no septal abnormalities noted. Tympanic membranes are normal and external auditory canals are clear. Oropharynx with no redness, swelling, or masses, exudates, or evidence of obstruction, uvula midline. Mucous membranes moist. Neck: Trachea midline, no thyromegaly or masses palpated, and no cervical lymphadenopathy. Supple, full range of motion without nuchal rigidity, or vertebral point tenderness. No Meningismus. Chest/axilla: Normal chest wall appearance and motion. Nontender with no deformity. No lesions are appreciated. Cardiovascular: Regular rate and rhythm with a normal S1 and S2. No gallops, murmurs, or rubs. Normal PMI, no JVD. No pulse deficits. Respiratory: Lungs have equal breath sounds bilaterally, clear to auscultation and percussion. No rales, rhonchi or wheezes noted. No increased work of breathing, no retractions or nasal flaring. Abdomen/GI: Soft, non-tender, with normal bowel sounds. No distension or tympany. No guarding or rebound. No evidence of tenderness throughout. Back: No spinal tenderness. No costovertebral tenderness. Skin: Warm, dry with normal turgor. Normal color with no rashes, left lower extremity venous stasis skin changes, with mild redness and chronic skin ulcer MS/ Extremity: Pulses equal, no cyanosis. Neurovascular intact. Moderate physical deconditioning, bilateral lower extremity edema without pitting Neuro: Awake and alert, GCS 15, oriented to person, place, time, and situation. Cranial nerves II-XII grossly intact. Motor strength 5/5 in all extremities. Sensory grossly intact. Psych: Awake, alert, with orientation to person, place and time. Behavior, mood, and affect are within normal limits 00:28 ECG was reviewed by the Attending Physician. sp4 Vital Signs: 01/12 20:46 BP 148 / 67; Pulse 80; Resp 18; Temp 98.2(TE); Pulse Ox 100% ; Weight 108.86 kg; Height kd3 5 ft. 1 in. ; 22:09 BP 169 / 70; Pulse 80; Resp 18 S; Pulse Ox 100% on 2 lpm NC; as6 23:00 BP 171 / 73; Pulse 80; Resp 21 S; Pulse Ox 100% on 2 lpm NC; as6 01/13 00:35 BP 165 / 81; Pulse 80; Resp 20 S; Pulse Ox 100% on 2 lpm NC; as6 01/12 20:46 Body Mass Index 45.35 (108.86 kg, 154.94 cm) kd3 MDM: 01/12 20:56 Patient medically screened. sp4 01/13 00:33 Differential diagnosis: Anemia Anxiety Reaction Bronchitis CHF exacerbation, Chronic sp4 Obstructive Pulmonary Disease Myocardial Infarction pneumonia. Antibiotic administration: Not indicated. Data reviewed: vital signs, nurses notes, EMS record, old medical records, lab test result(s), EKG, radiologic studies, plain films. Consideration of Admission/Observation Patient was admitted/placed on observation. Escalation of care including admission/observation considered. ED course: Patient's labs revealed elevated creatinine 2.66 which is somewhat above the patient's baseline. CO2 37, glucose 191, there is anemia which is at baseline with hemoglobin 9.3, low LFTs normal albumin depressed at 3.1, BNP is elevated at 5225 which is above patient's baseline, ABG revealed PO2 122, pH 7.5. X-ray reveals no focal consolidation, bibasilar interstitial prominence could reflect mild atelectasis or edema. . 01/12 20:56 Order name: Basic Metabolic Panel; Complete Time: 00:03 sp4 01/12 20:56 Order name: CBC with Diff; Complete Time: 00:03 sp4 01/12 20:56 Order name: LFT's; Complete Time: 00:03 sp4 01/12 20:56 Order name: Magnesium; Complete Time: 00:03 sp4 01/12 20:56 Order name: NT PRO-BNP; Complete Time: 00:03 sp4 01/12 20:56 Order name: PT-INR; Complete Time: 00:03 sp4 01/12 20:56 Order name: Troponin HS; Complete Time: 00:03 sp4 01/12 20:56 Order name: ABG; Complete Time: 00:03 sp4 01/13 00:28 Order name: Digoxin sp4 01/13 00:28 Order name: T4 Free sp4 01/13 00:28 Order name: TSH sp4 01/12 21:49 Order name: Chest Single View; Complete Time: 00:03 EDMS 01/12 20:56 Order name: EKG; Complete Time: 20:57 sp4 01/12 20:56 Order name: Cardiac monitoring; Complete Time: 21:11 sp4 01/12 20:56 Order name: EKG - Nurse/Tech; Complete Time: 21:11 sp4 01/12 20:56 Order name: IV Saline Lock; Complete Time: 21: sp4 01/12 20:56 Order name: Labs collected and sent; Complete Time: 21:11 sp4 01/12 20:56 Order name: O2 Per Protocol; Complete Time: 21: sp4 01/12 20:56 Order name: O2 Sat Monitoring; Complete Time: 21:11 sp4 EC:28 Rate is 83 beats/min. Rhythm is regular, Paced. No ST changes noted. Clinical sp4 impression: No evidence of ischemia. Interpreted by me. Administered Medications: 00:46 Drug: Furosemide IVP 40 mg Route: IVP; Site: right antecubital; as6 01:05 Follow up: Response: No adverse reaction as6 00:46 Drug: Nitroglycerin Transdermal Ointment 2 % 1 inches Route: Transdermal; Site: as6 anterior chest wall; 01:04 Follow up: Response: No adverse reaction as6 Disposition Summary: 01/13/23 00:38 Hospitalization Ordered Hospitalization Status: Inpatient Admission sp4 Provider: Cory Elizabeth sp4 Location: Telemetry/[facility]Sur (Inpatient) sp4 Condition: Stable sp4 Problem: new sp4 Symptoms: have improved sp4 Bed/Room Type: Standard sp4 Room Assignment: 230(01/13/23 01:03) mw Diagnosis - Diastolic CHF with exacerbation, dyspnea on exertion, acute on chronic renal sp4 insufficiency Forms: - Medication Reconciliation Form sp4 - SBAR form sp4 Signatures: Dispatcher [employer] EDMT Sonia Fitzgerald RN RN mw Dionicio Jensen RN RN as6 Jannet Fierro RN RN kd3 Richmond Nieto MD MD sp4 Corrections: (The following items were deleted from the chart) 01/12 21:48 20:57 Chest Single View+RAD.RAD.BRZ ordered. EDMT EDMT 01/13 01:03 00:38 sp4 mw
--- NOTE | 2023-01-13 00:39 | ER ---
Nurse's Notes [facility] Name: Nhung Munson Age: 72 yrs Sex: Female : 1950 Arrival Date: 01/12/2023 Time: 20:43 Bed 14 Private MD: Diagnosis: Diastolic CHF with exacerbation, dyspnea on exertion, acute on chronic renal insufficiency Presentation: 01/12 20:46 Chief complaint: EMS states: She called the ambulance for shortness of breath. She said kd3 that she was just released from here because of shortness of breath and they had increased her Lasix and sent her home. When EMS arrived Her oxygen was disconnected from her machine. On 2 liters Nasal canula she said she felt much better and was sating 100%. Coronavirus screen: Vaccine status: Patient reports receiving the 2nd dose of the covid vaccine. Ebola Screen: No symptoms or risks identified at this time. Initial Sepsis Screen: Does the patient meet any 2 criteria? No. Patient's initial sepsis screen is negative. Does the patient have a suspected source of infection? No. Patient's initial sepsis screen is negative. Risk Assessment: Do you want to hurt yourself or someone else? Patient reports no desire to harm self or others. Onset of symptoms was January 12, 2023. 20:46 Method Of Arrival: EMS: [facility] kd3 20:46 Acuity: BACILIO 3 kd3 Triage Assessment: 20:51 General: Appears uncomfortable, Behavior is calm, cooperative. Pain: Denies pain. kd3 Respiratory: Reports shortness of breath Onset: The symptoms/episode began/occurred today, the patient has mild shortness of breath. Historical: - Allergies: 20:51 Amoxicillin; kd3 20:51 Bactrim DS; kd3 20:51 Demerol; kd3 - PMHx: 20:51 Atrial Fib; Diabetes - IDDM; High Cholesterol; Hypertension; Renal Problems; kd3 - Immunization history:: Adult Immunizations up to date. - Social history:: Smoking status: Patient denies any tobacco usage or history of. - Family history:: not pertinent. Screenin/09 01:03 [facility] ED Fall Risk Assessment (Adult) Score/Fall Risk Level 0 - 2 = Low Risk. Abuse as6 screen: Denies threats or abuse. Denies injuries from another. Nutritional screening: No deficits noted. Tuberculosis screening: No symptoms or risk factors identified. Vital Signs: 01/12 20:46 BP 148 / 67; Pulse 80; Resp 18; Temp 98.2(TE); Pulse Ox 100% ; Weight 108.86 kg; Height kd3 5 ft. 1 in. ; 22:09 BP 169 / 70; Pulse 80; Resp 18 S; Pulse Ox 100% on 2 lpm NC; as6 23:00 BP 171 / 73; Pulse 80; Resp 21 S; Pulse Ox 100% on 2 lpm NC; as6 01/13 00:35 BP 165 / 81; Pulse 80; Resp 20 S; Pulse Ox 100% on 2 lpm NC; as6 01/12 20:46 Body Mass Index 45.35 (108.86 kg, 154.94 cm) kd3 ED Course: 01/12 20:45 Patient arrived in ED. as6 20:51 Triage completed. kd3 20:51 Arm band placed on right wrist. kd3 20:54 Richmond Nieto MD is Attending Physician. sp4 21:01 Jannet Fierro, RN is Primary Nurse. kd3 21:10 Placed in gown. Bed in low position. Call light in reach. Side rails up X 1. Client mb9 placed on continuous cardiac and pulse oximetry monitoring. NIBP monitoring applied. playground monitor on. 21:10 EKG done, by ED staff, reviewed by Jannet Fierro RN. Inserted saline lock: 22 gauge in mb9 right antecubital area, using aseptic technique. 21:11 Basic Metabolic Panel Sent. mb9 21:11 CBC with Diff Sent. mb9 21:11 LFT's Sent. mb9 21:11 Magnesium Sent. mb9 21:11 NT PRO-BNP Sent. mb9 21:11 PT-INR Sent. mb9 21:11 Troponin HS Sent. mb9 21:49 Chest Single View In Process Unspecified. EDMS 01/13 00:37 Cory Elizabeth MD is Hospitalizing Provider. sp4 01:03 No provider procedures requiring assistance completed. Patient admitted, IV remains in as6 place. Administered Medications: 00:46 Drug: Furosemide IVP 40 mg Route: IVP; Site: right antecubital; as6 01:05 Follow up: Response: No adverse reaction as6 00:46 Drug: Nitroglycerin Transdermal Ointment 2 % 1 inches Route: Transdermal; Site: as6 anterior chest wall; 01:04 Follow up: Response: No adverse reaction as6 Medication: 01/12 21:11 VIS not applicable for this client. mb9 Outcome: 01/13 00:38 Decision to Hospitalize by Provider. sp4 01:04 Admitted to Med/surg as6 01:04 Condition: stable 01:04 Instructed on the need for admit. 01:38 Patient left the ED. as6 Signatures: Dispatcher [employer] EDDionicio Saldivar RN RN as6 Jannet Fierro RN RN kd3 Elina Hough RN RN mb9 Richmond Nieto MD MD sp4 Corrections: (The following items were deleted from the chart) 01/12 21:48 21:43 In radiology for Chest Single View+RAD.RAD.BRZ. EDNE EDMS
[2023-01-13] MEDS ORDERED: NITROGLYCERIN 1 GM PKT TD ONE (00:48)
[2023-01-13] MEDS ORDERED: FUROSEMIDE 40 MG/4 ML VIAL ONE (00:48)
[2023-01-13 01:07] LABS: Digoxin Level 1.1 ng/mL (0.80-2.00); Thyroid Stimulating Hormone 3.3 uIU/mL (0.358-3.740)
--- NOTE | 2023-01-13 01:10 | P.HP ---
Certification for Inpatient Patient admitted to: Observation With expected LOS: <2 Midnights Patient will require the following post-hospital care: None Practitioner: I am a practitioner with admitting privileges, knowledge of patient current condition, hospital course, and medical plan of care. Services: Services provided to patient in accordance with Admission requirements found in Title 42 Section 412.3 of the Code of Federal Regulations <MauroRolando Andrea - Last Filed: 01/13/23 01:06> Patient History Date of Service: 01/13/23 Reason for admission: BETTY, CHF History of Present Illness: 72-year-old female with history of chronic diastolic congestive heart failure, atrial fibrillation on chronic anticoagulation, insulin-dependent diabetes, CKD 4, iron deficiency anemia, hypertension, hyperlipidemia and hypothyroidism presents to the emergency department chief complaint of dyspnea, dyspnea on exertion. She reports increasing shortness of breath over the course of the last 2 to 3 days, she wears home oxygen 2 L/day typically has had to increase it to 3 to 4 L/day the past couple of days, she was seen in the hospital admitted on 12/31/2022 and subsequently discharged on 01/05/2023 for CHF exacerbation, she was discharged on Lasix 80 mg twice daily at that time which she has been compliant with she denies significant change in frequency or volume of urination at home, she reports 4 pound weight loss over the course of the last few days although she does have worsening renal function, dyspnea/dyspnea on exertion. We will admit under observation for BETTY, CHF exacerbation. - Past Medical/Surgical History Diabetic: Yes -: Diabetes mellitus type 2-insulin dependent -: Hypertension -: Afib on chronic anticoagulation -: Obesity -: Hyperlipidemia -: Chronic renal disease stage IV -: Cancer uterine 3years ago -: Degenerative joint disease of the hip -: Chronic systolic congestive heart failure -: Tubal ligation -: Hysterectomy -: pacemaker Psychosocial/ Personal History: She is of 49 years, has 4 children, she does not work, lives at home with her . - Family History Father -: Kidney disease Mother -: Diabetes - Social History Alcohol use: No CD- Drugs: No Caffeine use: Yes Place of Residence: Home <Rolando Wade - Last Filed: 01/13/23 01:06> Date of Service: 01/13/23 <Cory Elizabeth - Last Filed: 01/13/23 13:43> Allergies amoxicillin [Amoxicillin] Allergy (Intermediate, Verified 12/27/11 05:36) Hives/Rash sulfamethoxazole [From Bactrim] Allergy (Intermediate, Verified 12/27/11 05:36) Hives/Rash trimethoprim [From Bactrim] Allergy (Intermediate, Verified 12/27/11 05:36) Hives/Rash Home Medications: Allopurinol 100 mg PO DAILY 06/23/20 Atorvastatin Calcium 20 mg PO BEDTIME 06/23/20 Carvedilol [Coreg] 12.5 mg PO BID 06/23/20 Cholecalciferol (Vitamin D3) [Vitamin D3] 3,000 unit PO DAILY 06/23/20 Ferrous Sulfate [Iron] 65 mg PO TID 06/23/20 Loratadine [Claritin*] 10 mg PO DAILY 06/23/20 Melatonin 10 mg PO BEDTIME PRN 06/24/21 Apixaban [Eliquis] 5 mg PO BID 01/01/23 Digoxin [Lanoxin*] 0.125 mg PO DAILY 01/01/23 Lisinopril [Zestril] 2.5 mg PO DAILY 01/01/23 Furosemide 80 mg PO BID 60 Days #60 tab 01/05/23 Insulin Lispro [Humalog] See Rx Instructions .ROUTE .COMPLEX 01/13/23 Insulin NPH Human Isophane [Novolin N] 52 unit SQ BID 01/13/23 Liraglutide [Victoza 2-Meir] 1.8 units IN DAILY 01/13/23 Review of Systems 10-point ROS is otherwise unremarkable Respiratory: Shortness of Breath, SOB with Excertion <Rolando Wade - Last Filed: 01/13/23 01:06> Physical Examination - Physical Exam General: Alert, In no apparent distress, Oriented x3, Obese HEENT: Atraumatic, PERRLA, Mucous membr. moist/pink, EOMI, Sclerae nonicteric Neck: Supple, 2+ carotid pulse no bruit, No LAD, Without JVD or thyroid abnormality Respiratory: Clear to auscultation bilaterally, Normal air movement Cardiovascular: Regular rate/rhythm, Normal S1 S2, Edema Capillary refill: <2 Seconds Gastrointestinal: Normal bowel sounds, No tenderness Musculoskeletal: No tenderness Integumentary: Other (Erythema to left lower extremity appears chronic in nature) Neurological: Normal gait, Normal speech, Normal strength at 5/5 x4 extr, Normal tone, Normal affect - Studies Laboratory Data (last 24 hrs) 01/12/23 21:06: PT 20.9 H, INR 1.90 01/12/23 21:06: WBC 8.10, Hgb 9.3 L, Hct 29.5 L, Plt Count 260 01/12/23 21:06: Sodium 140, Potassium 3.8, BUN 69 H, Creatinine 2.66 H, Glucose 191 H, Magnesium 2.5 H, Total Bilirubin 0.3, AST 9 L, ALT 20, Alkaline Phosphatase 100 <Rolando Wade - Last Filed: 01/13/23 01:06> - Studies Laboratory Data (last 24 hrs) 01/12/23 21:06: PT 20.9 H, INR 1.90 01/12/23 21:06: WBC 8.10, Hgb 9.3 L, Hct 29.5 L, Plt Count 260 01/12/23 21:06: Sodium 140, Potassium 3.8, BUN 69 H, Creatinine 2.66 H, Glucose 191 H, Magnesium 2.5 H, Total Bilirubin 0.3, AST 9 L, ALT 20, Alkaline Phosphatase 100 <Cory Elizabeth - Last Filed: 01/13/23 13:43> Assessment and Plan - Plan Assessment: Acute on chronic diastolic congestive heart failure BETTY on CKD 4 Atrial fibrillation on chronic antibiotic therapy Diabetes mellitus type 2insulin-dependent CARMEN Hypertension Hyperlipidemia Hypothyroidism Plan: Acute on chronic diastolic congestive heart failure Continue with IV diuresis, unclear picture as patient has been compliant with p.o. Lasix, denies changes in frequency of urination reports 4 pound weight loss but also dyspnea/dyspnea on exertion which is worsening, mild increasing oxygen requirement. Mild worsening in renal function. Will consult nephrology for assistance with diuresis. BETTY on CKD 4 Continue as above, nephrology consult in place. Atrial fibrillation on chronic antibiotic therapy Continue medications including Eliquis. Diabetes mellitus type 2insulin-dependent Sliding scale insulin CARMEN Continue iron supplementation Hypertension Hyperlipidemia Hypothyroidism Continue home medications DVT PPX: Continue Eliquis Code status: Full code Discharge Plan: Home Plan to discharge in: 48 Hours - Advance Directives Does patient have a Living Will: No Does patient have a Durable POA for Healthcare: No - Code Status/Comfort Care Code Status Assessed: Yes (Full code) Critical Care: No Time Spent Managing Pts Care (In Minutes): 70 <Rolando Wade - Last Filed: 01/13/23 01:06> - Plan Patient seen and examined on rounds this morning Reports feeling slightly better, less dyspneic Denies missing any of her medications States she was improving up until 2-3 days ago Chest x-ray does not appear significantly worse than previous x-ray, and she has been taking Lasix with further weight loss. Lower extremities with less edema than when she was discharged Denies any chest pain/pressure over the last several days Upon further discussion, she reports being told at 1 point that she likely had COPD may have component of copd leading to dyspnea. pulm consulted continue iv lasix <Cory Elizabeth - Last Filed: 01/13/23 13:43>
[2023-01-13] MEDS ORDERED: ONDANSETRON 4 MG/2 ML VIAL IV PRN (01:47)
[2023-01-13 02:23] VITALS: BMI 45.3
[2023-01-13] MEDS: MELATONIN 5 MG TABLET PO PRN (02:24)
[2023-01-13 04:27] LABS: Absolute Lymphocytes (CBC) 0.7 K/uL (0.7-4.9); Hematocrit 27.2 % (36.0-45.0); MCV 85.8 fL (80-100); MPV 8.2 fL (7.6-11.3); RBC Red Blood Cell Count 3.17 M/uL (3.86-4.86)
[2023-01-13 05:05] LABS: Magnesium 2.5 mg/dL (1.6-2.4); Potassium 3.5 mEq/L (3.5-5.1)
[2023-01-13 06:18] LABS: Anisocytosis 1+; Blood Morphology Comment NOTED (NOT SEEN); Platelet Estimate ADEQ; White Blood Cell Scan OK (OK)
--- NOTE | 2023-01-13 07:16 | P.PN ---
Date of Service: 01/14/23 Subjective: Feels pretty good this morning Breathing feels easier, improving no new / worsening problem has not been ambulating at all since arrival ROS: 10 point ROS as noted above, otherwise negative Physical Exam: GEN: Alert, oriented, NAD HEENT: Normal conjunctiva, sclera anicteric CV: Regular rate and rhythm, 1+ edema to knees Pulm: Nonlabored respirations on 2L NC, diminished at bases bilaterally ABD: Soft, nontender, nondistended Integumentary: mild erythema of bilateral lower extremities, with superficial abrasions Neuro: Normal speech, normal affect vitals reviewed Problem List: acute on chronic hypoxemic respiratory failure; secondary to COPD and CHF exacerbation acute on chronic COPD exacerbation chronic diastolic CHF BETTY on CKD 4 Atrial fibrillation on chronic antibiotic therapy [id number] CARMEN Hypertension Hyperlipidemia Hypothyroidism acute on chronic hypoxemic respiratory failure; secondary to COPD and CHF exacerbation acute on chronic COPD exacerbation chronic diastolic CHF Unclear picture as patient has been compliant with p.o. Lasix, denies changes in frequency of urination reports 4 pound weight loss but also dyspnea/dyspnea on exertion which is worsening, mild increasing oxygen requirement. suspect more due to copd exacerbation pulm consulted, steroids and bronchodilators started improving continue above PT consulted, she has not ambulated since admission has home O2 set up already BETTY on CKD 4 resolved Nephrology following Atrial fibrillation on chronic antibiotic therapy Continue medications including Eliquis [id number] Sliding scale insulin CARMEN Continue iron supplementation Hypertension Hyperlipidemia Hypothyroidism Continue home medications VTE: Eliquis Code: Full Dispo: Home 1-2 days
[2023-01-13] MEDS: INSULIN -REGULAR HUMAN 50 UNIT/0.5 ML ML SQ SCH ×4 (07:30→21:39)
[2023-01-13] MEDS: FERROUS SULFATE 325 MG TAB PO SCH ×3 (09:00→21:40)
[2023-01-13] MEDS ORDERED: FUROSEMIDE 40 MG/4 ML VIAL IV SCH (09:00)
[2023-01-13] MEDS: APIXABAN 5 MG TABLET PO SCH ×2 (09:01→21:40)
[2023-01-13] MEDS: predniSONE 20 MG TAB PO SCH ×2 (09:01→21:40)
[2023-01-13] MEDS ORDERED: SOD FERRIC GLUC COMPLX/SUCROSE 250 MG in NA CHLORIDE 0.9% 250 ML IV SCH (12:00)
--- NOTE | 2023-01-13 12:08 | P.CNS ---
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 a livestock inspector Allergies amoxicillin [Amoxicillin] Allergy (Intermediate, Verified 12/27/11 05:36) Hives/Rash sulfamethoxazole [From Bactrim] Allergy (Intermediate, Verified 12/27/11 05:36) Hives/Rash trimethoprim [From Bactrim] Allergy (Intermediate, Verified 12/27/11 05:36) Hives/Rash Home Medications: Allopurinol 100 mg PO DAILY 06/23/20 Atorvastatin Calcium 20 mg PO BEDTIME 06/23/20 Carvedilol [Coreg] 12.5 mg PO BID 06/23/20 Cholecalciferol (Vitamin D3) [Vitamin D3] 3,000 unit PO DAILY 06/23/20 Ferrous Sulfate [Iron] 65 mg PO TID 06/23/20 Loratadine [Claritin*] 10 mg PO DAILY 06/23/20 Melatonin 10 mg PO BEDTIME PRN 06/24/21 Apixaban [Eliquis] 5 mg PO BID 01/01/23 Digoxin [Lanoxin*] 0.125 mg PO DAILY 01/01/23 Lisinopril [Zestril] 2.5 mg PO DAILY 01/01/23 Furosemide 80 mg PO BID 60 Days #60 tab 01/05/23 Insulin Lispro [Humalog] See Rx Instructions .ROUTE .COMPLEX 01/13/23 Insulin NPH Human Isophane [Novolin N] 52 unit SQ BID 01/13/23 Liraglutide [Victoza 2-Meir] 1.8 units IN DAILY 01/13/23 - Past Medical/Surgical History Diabetic: Yes -: Diabetes mellitus type 2-insulin dependent -: Hypertension -: Afib on chronic anticoagulation -: Obesity -: Hyperlipidemia -: Chronic renal disease stage IV -: Cancer uterine 3years ago -: Degenerative joint disease of the hip -: Chronic systolic congestive heart failure -: Tubal ligation -: Hysterectomy -: pacemaker Psychosocial/ Personal History: She is of 49 years, has 4 children, she does not work, lives at home with her . - Family History Father Medical History: Kidney disease Mother Medical History: Diabetes - Social History Smoking Status: Unknown if ever smoked Alcohol use: No CD- Drugs: No Caffeine use: No Place of Residence: Home Review of Systems 10-point ROS is otherwise unremarkable General: Weakness Respiratory: Shortness of Breath Physical Examination Temp Pulse Resp BP Pulse Ox 97.3 F 80 16 102/52 L 98 01/13/23 08:00 01/13/23 08:00 01/13/23 08:00 01/13/23 08:00 01/13/23 08:00 General: In no apparent distress, Oriented x3 HEENT: Atraumatic Neck: Supple Respiratory: Clear to auscultation bilaterally Cardiovascular: No edema, Normal pulses, Regular rate/rhythm Laboratory Data (last 24 hrs) 01/12/23 21:06: PT 20.9 H, INR 1.90 01/12/23 21:06: WBC 8.10, Hgb 9.3 L, Hct 29.5 L, Plt Count 260 01/12/23 21:06: Sodium 140, Potassium 3.8, BUN 69 H, Creatinine 2.66 H, Glucose 191 H, Magnesium 2.5 H, Total Bilirubin 0.3, AST 9 L, ALT 20, Alkaline Phosphatase 100 - Problems (1) CHF (congestive heart failure) Current Visit: No Status: Acute Plan: Patient is 72 years of age admitted with worsening dyspnea she had risk factors for diastolic heart failure including A-fib BNP was over 5000 chest x-ray clear may have underlying obstructive airways disease kidney function has improved patient is on diuretics. Some Brovana and prednisone all x-rays lab work reviewed patient does see Dr. Dickson she is got some sores on the left leg otherwise labs show anemia which is normocytic patient does also have a pacemaker and is on Lasix vital signs oxygenation satisfactory echo was normal on her recent admissions also seen by cardiology Qualifiers: Heart failure type: unspecified Heart failure chronicity: acute on chronic Qualified Code(s): I50.9 - Heart failure, unspecified
--- NOTE | 2023-01-13 12:55 | PN ---
Date of Progress Note: 01/13/2023 Subjective: The patient was admitted with acute kidney injury on chronic kidney disease secondary to cardiorenal with respiratory failure. The patient was started on diuresis, again responded very wel l. Kidney function has been improved. Physical Examination: Vital Signs: Blood pressure 102/52, pulse of 80, afebrile. The patient had good urine output. Chest: Decreased entry bilateral base. Heart: S1, S2. Regular. Abdomen: Soft, nontender. Extremities: Trace edema. Neuro: Alert. No focality. Laboratory Data: Hemoglobin 8.6. Sodium 143, potassium 3.5, bicarb 38, BUN 69, creatinine 2.2, GFR 23, calcium 9.5, magnesium 2.5. Current Medications: The patient on include; 1.Ferrous sulfate. 2.Eliquis. 3.Lasix 40 t.i.d. 4.Zofran. 5.Prednisone 20 b.i.d. 6.Melatonin. Assessment And Plan: 1.Acute kidney injury on chronic kidney disease secondary to cardiorenal, responded very well to cur rent diuresis dose. I am going to go ahead and increase Lasix to 60 mg and we will continue to monit or the patient. 2.Hypertension, controlled, optimal. We will keep utilizing blood pressure for more diuresis as abo ve. 3.Anemia of chronic kidney disease. I am going to go ahead and send for anemia workup to evaluate i f the patient is going to need any IV iron. 4.Secondary hyperparathyroidism, stable. 5.Diabetes as by primary. 6.Possible chronic obstructive pulmonary disease. The patient was started on prednisone. I am natali g to start the patient on albuterol and we will follow up. SALONI/SUSAN Voice ID: [id number] Report ID: [id number]
[2023-01-13] MEDS: ALBUTEROL 2.5 MG/3 ML NEB SOL NEB SCH ×2 (13:08→19:33)
[2023-01-13] MEDS: ARFORMOTEROL TARTRATE 15 MCG/2 ML VIAL.NEB NEB SCH ×2 (13:08→19:33)
[2023-01-13] MEDS ORDERED: D50W 25 GM/50 ML SYRINGE IV PRN (13:44)
[2023-01-13] MEDS ORDERED: GLUCAGON 1 MG/VIAL IM PRN (13:44)
[2023-01-13] MEDS ORDERED: D10W 125 ML IV PRN (13:50)
[2023-01-13] MEDS: FUROSEMIDE 40 MG/4 ML VIAL IV SCH (16:18)
[2023-01-13] MEDS: NPH (HUMAN) 100 UNITS/ML INSULIN SQ SCH (16:19)
[2023-01-13] MEDS: ATORVASTATIN 20 MG TAB PO SCH (21:40)
[2023-01-14] MEDS: FUROSEMIDE 40 MG/4 ML VIAL IV SCH ×2 (00:23→08:56)
[2023-01-14] MEDS: MELATONIN 5 MG TABLET PO PRN ×2 (00:48→21:13)
[2023-01-14] MEDS: ALBUTEROL 2.5 MG/3 ML NEB SOL NEB SCH ×4 (01:50→19:30)
[2023-01-14 04:34] LABS: Absolute Lymphocytes (CBC) 0.3 K/uL (0.7-4.9); Hematocrit 26.6 % (36.0-45.0); Lymphocytes % 4.1 % (15.3-44.8); MCV 86.9 fL (80-100); MPV 8.8 fL (7.6-11.3); RBC Red Blood Cell Count 3.07 M/uL (3.86-4.86)
[2023-01-14 04:59] LABS: Magnesium 2.4 mg/dL (1.6-2.4); Potassium 4.2 mEq/L (3.5-5.1)
[2023-01-14 07:33] LABS: Blood Morphology Comment NOT SEEN (NOT SEEN); Platelet Estimate ADEQ
[2023-01-14] MEDS: ARFORMOTEROL TARTRATE 15 MCG/2 ML VIAL.NEB NEB SCH (08:00)
[2023-01-14] MEDS: predniSONE 20 MG TAB PO SCH (08:56)
[2023-01-14] MEDS: APIXABAN 5 MG TABLET PO SCH ×2 (08:56→21:01)
[2023-01-14] MEDS: FERROUS SULFATE 325 MG TAB PO SCH ×3 (08:56→21:02)
[2023-01-14] MEDS: INSULIN -REGULAR HUMAN 50 UNIT/0.5 ML ML SQ SCH ×4 (08:58→21:03)
[2023-01-14] MEDS: NPH (HUMAN) 100 UNITS/ML INSULIN SQ SCH (08:58)
--- NOTE | 2023-01-14 12:00 | P.PN ---
Subjective Date of Service: 01/14/23 Chief Complaint: Shortness of breath Subjective: Improving (Patient is doing better breathing has improved) Review of Systems General: Weakness Respiratory: Shortness of Breath Physical Examination - Vital Signs Temperature: 97.5 F Blood Pressure: 137/62 Pulse: 71 Respirations: 16 Pulse Ox (%): 99 - Physical Exam General: Alert, Oriented x3 Respiratory: Clear to auscultation bilaterally, Diminished Cardiovascular: No edema, Regular rate/rhythm Assessment And Plan - Current Problems (Diagnosis) (1) CHF (congestive heart failure) Current Visit: No Status: Acute Plan: Patient has improved is on IV diuretics and bronchodilators reduce the prednisone to 10 mg twice a day started on Dulera DC Brovana Labs reviewed creatinine is mildly elevated he can back off on the Lasix ambulate possible discharge on Dulera and low-dose prednisone vital signs oxygenation satisfactory Qualifiers: Heart failure type: unspecified Heart failure chronicity: acute on chronic Qualified Code(s): I50.9 - Heart failure, unspecified
--- NOTE | 2023-01-14 13:50 | PN ---
Date of Progress Note: 01/14/2023 Subjective: The patient was admitted with acute kidney injury on advanced chronic kidney disease sec ondary to cardiorenal. Patient was over volume. Physical Examination: Vital Signs: Blood pressure 137/62, pulse of 71, afebrile. Chest: Crackles, bilateral base. Heart: S1, S2. Regular. Abdomen: Soft, nontender. Extremities: Trace edema. Neuro: Alert. No focality. Laboratory Data: Hemoglobin 8.4. Sodium 139, potassium 4.2, bicarb 36, BUN 77, creatinine 2.3, GFR 22, calcium 8.7, magnesium 2.3. Current Medications: The patient on include: 1.IV iron. 2.Eliquis 5 b.i.d. 3.Ferrous sulfate. 4.Atorvastatin. 5.Lasix 60 every 8 hours. 6.Singulair. 7.Prednisone. 8.Insulin. 9.Melatonin. Assessment And Plan: 1.Acute kidney injury on advanced chronic kidney disease secondary to cardiorenal. I am going to sw itch the patient to oral Lasix and we will monitor the patient. 2.Hypertension, controlled, optimal. Continue current treatment. 3.Anemia of iron-deficiency anemia. Continue IV iron. 4.Chronic obstructive pulmonary disease. Follow up with the Pulmonary. 5.Congestive heart failure with exacerbation. We will optimize the fluid status. DOE Voice ID: [id number] Report ID: [id number]
--- NOTE | 2023-01-14 16:01 | EKG ---
Test Date: 2023-01-12 Test Time: 20:53:20 Engraver Machine: CORNELIO MEASUREMENT RESULTS: Intervals: Rate: 81 GA: 252 QRSD: 176 QT: 436 QTc: 506 [place]: P: 91 GA: 252 QRS: -73 T: 102 INTERPRETIVE STATEMENTS: Atrial-sensed ventricular-paced rhythm with prolonged AV conduction Abnormal ECG Compared to ECG 06/25/2021 13:53:03 Sinus rhythm no longer present Ventricular premature complex(es) no longer present Left bundle-branch block no longer present Electronically Signed On 01-14-23 15:57:46 CDT by Nehemias Brown
[2023-01-14] MEDS ORDERED: NPH (HUMAN) 100 UNITS/ML INSULIN SQ SCH (17:00)
[2023-01-14] MEDS: ATORVASTATIN 20 MG TAB PO SCH (21:01)
[2023-01-14] MEDS: predniSONE 10 MG TAB PO SCH (21:01)
[2023-01-14] MEDS: FUROSEMIDE 40 MG TABLET PO SCH (21:02)
[2023-01-14] MEDS: DULERA 200/5 (MOMETASONE/FORMOTEROL) INHALER IH SCH (21:02)
[2023-01-15] MEDS: ALBUTEROL 2.5 MG/3 ML NEB SOL NEB SCH ×2 (01:35→08:02)
[2023-01-15 02:51] VITALS: O2SAT 99
[2023-01-15 03:59] LABS: Absolute Lymphocytes (CBC) 0.5 K/uL (0.7-4.9); Hematocrit 25.7 % (36.0-45.0); MCV 86.9 fL (80-100); MPV 8.9 fL (7.6-11.3); RBC Red Blood Cell Count 2.96 M/uL (3.86-4.86)
[2023-01-15 04:08] LABS: Magnesium 2.5 mg/dL (1.6-2.4); Potassium 4.1 mEq/L (3.5-5.1)
--- NOTE | 2023-01-15 07:18 | P.PN ---
Date of Service: 01/15/23 Subjective: Doing pretty well this morning Did well with PT yesterday ROS: 10 point ROS as noted above, otherwise negative Physical Exam: GEN: Alert, oriented, NAD HEENT: Normal conjunctiva, sclera anicteric CV: Regular rate and rhythm, 1+ edema to knees Pulm: Nonlabored respirations on 1L NC, diminished at bases bilaterally ABD: Soft, nontender, nondistended Integumentary: mild erythema of bilateral lower extremities, with superficial abrasions Neuro: Normal speech, normal affect vitals reviewed Problem List: acute on chronic hypoxemic respiratory failure; secondary to COPD and CHF exacerbation acute on chronic COPD exacerbation chronic diastolic CHF BETTY on CKD 4 Atrial fibrillation on chronic antibiotic therapy [id number] CARMEN Hypertension Hyperlipidemia Hypothyroidism acute on chronic hypoxemic respiratory failure; secondary to COPD and CHF exacerbation acute on chronic COPD exacerbation chronic diastolic CHF Unclear picture as patient has been compliant with p.o. Lasix, denies changes in frequency of urination reports 4 pound weight loss but also dyspnea/dyspnea on exertion which is worsening, mild increasing oxygen requirement. suspect more due to copd exacerbation pulm consulted, steroids and bronchodilators started improving continue above PT consulted, she has not ambulated since admission has home O2 set up already BETTY on CKD 4 resolved Nephrology following Atrial fibrillation on chronic antibiotic therapy Continue medications including Eliquis [id number] Sliding scale insulin CARMEN Continue iron supplementation Hypertension Hyperlipidemia Hypothyroidism Continue home medications VTE: Eliquis Code: Full Dispo: Home 1-2 days
[2023-01-15] MEDS: INSULIN -REGULAR HUMAN 50 UNIT/0.5 ML ML SQ SCH ×2 (07:30→12:12)
[2023-01-15] MEDS ORDERED: NPH (HUMAN) 100 UNITS/ML INSULIN SQ SCH (08:00)
[2023-01-15] MEDS: FUROSEMIDE 40 MG TABLET PO SCH (09:02)
[2023-01-15] MEDS: APIXABAN 5 MG TABLET PO SCH (09:02)
[2023-01-15] MEDS: DULERA 200/5 (MOMETASONE/FORMOTEROL) INHALER IH SCH (09:02)
[2023-01-15] MEDS: FERROUS SULFATE 325 MG TAB PO SCH ×2 (09:02→14:23)
[2023-01-15] MEDS: predniSONE 10 MG TAB PO SCH (09:02)
--- NOTE | 2023-01-15 10:48 | P.DS ---
Admission Date: 01/14/23 Discharge Date: 01/15/23 Disposition: ROUTINE DISCHARGE Reason for Admission: Shortness of breath Consultations: Nephrology - Dr. Mays Plmonology - Dr. Almeida Brief History of Present Illness: 72yo F, PMH: chronic diastolic congestive heart failure, atrial fibrillation on chronic anticoagulation, insulin-dependent diabetes, CKD 4, iron deficiency anemia, hypertension, hyperlipidemia and hypothyroidism Patient presents to the emergency department chief complaint of dyspnea, dyspnea on exertion. She reports increasing shortness of breath over the course of the last 2 to 3 days, she wears home oxygen 2 L/day typically has had to increase it to 3 to 4 L/day the past couple of days, she was seen in the hospital admitted on 12/31/2022 and subsequently discharged on 01/05/2023 for CHF exacerbation, she was discharged on Lasix 80 mg twice daily at that time which she has been compliant with she denies significant change in frequency or volume of urination at home, she reports 4 pound weight loss over the course of the last few days although she does have worsening renal function, dyspnea/dyspnea on exertion. We will admit under observation for BETTY, CHF exacerbation. Hospital Course: Problem List: acute on chronic hypoxemic respiratory failure; secondary to COPD and CHF exacerbation acute on chronic COPD exacerbation chronic diastolic CHF BETTY on CKD 4 Atrial fibrillation on chronic antibiotic therapy [id number] CARMEN Hypertension Hyperlipidemia Hypothyroidism Patient presented with dyspnea on exertion, increasingly worse over the last 2-3 days, and weight loss of ~4lbs over last 2-3 days. She was recently hospitalized 12/31 for CHF exacerbation. Nephrology and Pulmonology were consulted. She was continued on lasix and added prednisone and dulera inhaler. She had improvement of her symptoms. This episode was felt to be more due to COPD than CHF / volume overload. She had some mild erythema in bilateral legs, but no evidence of infection. This improved as her edema improved. On day of discharge, she reported breathing comfortably on 1L NC and is able to ambulate around the room. She is to continue wound care as she was at home. Continue home health, home PT. Decrease lasix from 80mg twice daily to 80mg in morning and 40mg in afternoon. Prescription for Prednisone 10mg twice daily for 5 days, and dulera inhaler Otherwise continue home meds as previously prescribed. Follow up: PCP 3-5 days Pulmonology 1 week Nephrology 1-2 weeks Physical Exam: GEN: Alert, oriented, NAD HEENT: Normal conjunctiva, sclera anicteric CV: Regular rate and rhythm, 1+ edema to knees Pulm: Nonlabored respirations on 1L NC, diminished at bases bilaterally ABD: Soft, nontender, nondistended Integumentary: mild erythema of bilateral lower extremities, with superficial abrasions Neuro: Normal speech, normal affect Vital Signs/Physical Exam: Temp Pulse Resp BP Pulse Ox 97.8 F 65 16 149/66 H 98 01/15/23 08:00 01/15/23 08:00 01/15/23 08:00 01/15/23 08:00 01/15/23 08:00 Laboratory Data at Discharge: WBC 9.50 thou/uL (4.3-10.9) 01/15/23 03:04 Hgb 8.0 g/dL (12.0-15.0) L 01/15/23 03:04 Hct 25.7 % (36.0-45.0) L 01/15/23 03:04 Plt Count 231 thou/uL (152-406) 01/15/23 03:04 PT 20.9 SECONDS (9.5-12.5) H 01/12/23 21:06 INR 1.90 01/12/23 21:06 Sodium 141 mEq/L (136-145) 01/15/23 03:04 Potassium 4.1 mEq/L (3.5-5.1) 01/15/23 03:04 BUN 87 mg/dL (7-18) H 01/15/23 03:04 Creatinine 2.45 mg/dL (0.55-1.02) H 01/15/23 03:04 Glucose 243 mg/dL (74-106) H 01/15/23 03:04 Magnesium 2.5 mg/dL (1.6-2.4) H 01/15/23 03:04 Total Bilirubin 0.3 mg/dL (0.2-1.0) 01/12/23 21:06 AST 9 U/L (15-37) L 01/12/23 21:06 ALT 20 U/L (13-56) 01/12/23 21:06 Alkaline Phosphatase 100 U/L (45-117) 01/12/23 21:06 Home Medications: Allopurinol 100 mg PO DAILY 06/23/20 Atorvastatin Calcium 20 mg PO BEDTIME 06/23/20 Carvedilol [Coreg] 12.5 mg PO BID 06/23/20 Cholecalciferol (Vitamin D3) [Vitamin D3] 3,000 unit PO DAILY 06/23/20 Ferrous Sulfate [Iron] 65 mg PO TID 06/23/20 Loratadine [Claritin*] 10 mg PO DAILY 06/23/20 Melatonin 10 mg PO BEDTIME PRN 06/24/21 Apixaban [Eliquis] 5 mg PO BID 01/01/23 Digoxin [Lanoxin*] 0.125 mg PO DAILY 01/01/23 Lisinopril [Zestril] 2.5 mg PO DAILY 01/01/23 Furosemide 80 mg PO BID 60 Days #60 tab 01/05/23 Insulin Lispro [Humalog] See Rx Instructions .ROUTE .COMPLEX 01/13/23 Insulin NPH Human Isophane [Novolin N] 52 unit SQ BID 01/13/23 Liraglutide [Victoza 2-Meir] 1.8 units IN DAILY 01/13/23 Mometasone/Formoterol [Dulera 200 Mcg-5 Mcg Inhaler] 2 puff IH BID 30 Days #1 inh 01/15/23 predniSONE [Deltasone*] 10 mg PO BID 5 Days #10 tab 01/15/23 New Medications: predniSONE [Deltasone*] 10 mg PO BID 5 Days #10 tab Mometasone/Formoterol [Dulera 200 Mcg-5 Mcg Inhaler] 2 puff IH BID 30 Days #1 inh Physician Discharge Instructions: Patient presented with dyspnea on exertion, increasingly worse over the last 2-3 days, and weight loss of ~4lbs over last 2-3 days. She was recently hospitalized 12/31 for CHF exacerbation. Nephrology and Pulmonology were consulted. She was continued on lasix and added prednisone and dulera inhaler. She had improvement of her symptoms. This episode was felt to be more due to COPD than CHF / volume overload. She had some mild erythema in bilateral legs, but no evidence of infection. This improved as her edema improved. On day of discharge, she reported breathing comfortably on 1L NC and is able to ambulate around the room. She is to continue wound care as she was at home. Continue home health, home PT. Decrease lasix from 80mg twice daily to 80mg in morning and 40mg in afternoon. Prescription for Prednisone 10mg twice daily for 5 days, and dulera inhaler Otherwise continue home meds as previously prescribed. Follow up: PCP 3-5 days Pulmonology 1 week Nephrology 1-2 weeks Followup: NONE,NONE [Primary Care Provider] - Time spent managing pt's care (in minutes): 45
--- NOTE | 2023-01-15 12:35 | RAD REPORT ---
EXAM DESCRIPTION: RADChest Single View01/15/2023 10:39 am CLINICAL HISTORY: f/u opacities / chf COMPARISON: Chest Single View dated 01/12/2023; Chest Single View dated 12/31/2022; Chest Pa And Lat (2 Views) dated 10/28/2021; Chest Single View dated 06/24/2021 TECHNIQUE: Portable AP view of the chest. FINDINGS: The lungs show no focal consolidation. Stable bibasilar interstitial changes. No pneumotho rax or effusion. The mediastinal contours are unchanged. Left chest wall pacer in place. Heart is aga in mildly enlarged. IMPRESSION: No acute findings. Stable bibasilar interstitial changes, which may reflect mild edema o r fibrosis.
[2023-01-15 12:36] VITALS: BP 144/65; TEMP 98.2
--- NOTE | 2023-01-15 13:03 | PN ---
Date of Progress Note: 01/15/2023 Subjective: Patient was admitted with cardiorenal syndrome, respiratory failure, combined secondary to COPD and cardiorenal exacerbation. Patient was diuresed, recovered, seen by Pulmonary, started on treatment for COPD. Physical Examination: Vital Signs: Blood pressure 149/66, pulse of 65, afebrile. Chest: Clear to auscultation. Heart: S1, S2. Regular. Abdomen: Soft, nontender. Extremities: Trace edema. Neurologic: No focality. Laboratory Data: Hemoglobin 8. Sodium 141, potassium 4.1, bicarb 35, BUN 87, creatinine 2.4, calciu m 8.5. Magnesium 2.5. Current Medications: The patient is on include: 1.Albuterol. 2.IV iron. 3.Eliquis 5 b.i.d. 4.Ferrous sulfate 325 t.i.d. 5.Atorvastatin. 6.Lasix 120 b.i.d. 7.Zofran. 8.Prednisone 10 b.i.d. Assessment And Plan: 1.Acute kidney injury on advanced chronic kidney disease secondary to cardiorenal. Patient is recov ering very well, marginal fluctuations in the kidney function. Chest x-ray did not show worsening in her congestive in fact this is slightly better. I am going to go ahead and back up on the Lasix to be 80 b.i.d. Patient will be okay from the renal standpoint to be discharged to follow up in the off ice in 2-3 weeks with chemistry. 2.Iron deficiency anemia. Continue IV iron. 3.Respiratory failure, combined secondary to chronic obstructive pulmonary disease exacerbation and cardiorenal syndrome, recover. We will follow up with Pulmonary. Decreased Lasix. 4.Hypertension, controlled, optimal. Continue current treatment. 5.Diabetes as by primary. MA/MODL Voice ID: [id number] Report ID: [id number]
[2023-01-15] MEDS ORDERED: FUROSEMIDE 40 MG TABLET PO SCH (21:00)
== END 2023-01-15 14:36 | disposition home health service (06) | DRG 190 ==
LOC: ER 20:43 → 2ND 01-13 01:19 → OBSVTOIN 01-14 15:31
PROVIDERS: ADMIT Hospitalist; ATTEND Hospitalist
DX: J44.1 Chronic obstructive pulmonary disease with (acute) exacerbation (principal); I50.33 Acute on chronic diastolic (congestive) heart failure; J96.21 Acute and chronic respiratory failure with hypoxia; I13.0 Hypertensive heart and chronic kidney disease with heart failure and stage 1 through stage 4 chronic kidney disease, or unspecified chronic kidney disease; N18.4 Chronic kidney disease, stage 4 (severe); N17.9 Acute kidney failure, unspecified; Z68.42 Body mass index [BMI] 45.0-49.9, adult; N25.81 Secondary hyperparathyroidism of renal origin; E66.9 Obesity, unspecified; E11.22 Type 2 diabetes mellitus with diabetic chronic kidney disease; D63.1 Anemia in chronic kidney disease; D50.9 Iron deficiency anemia, unspecified; E78.00 Pure hypercholesterolemia, unspecified; I48.91 Unspecified atrial fibrillation; E03.9 Hypothyroidism, unspecified; Z95.0 Presence of cardiac pacemaker; Z88.1 Allergy status to other antibiotic agents; Z79.4 Long term (current) use of insulin; Z88.5 Allergy status to narcotic agent; Z79.01 Long term (current) use of anticoagulants; Z98.51 Tubal ligation status; Z99.81 Dependence on supplemental oxygen; Z85.42 Personal history of malignant neoplasm of other parts of uterus; Z79.02 Long term (current) use of antithrombotics/antiplatelets; Z79.52 Long term (current) use of systemic steroids; Z90.710 Acquired absence of both cervix and uterus; Z79.899 Other long term (current) drug therapy
CPT/HCPCS: 36415; 71045; 80048; 80076; 80162; 82805; 82947; 83735; 83880; 84439; 84443; 84484; 85025; 85610; 93005; 94640; 96374; 97116; 97161; 97530; 99285; G0378; J1815; J1940; J2916; J3535; J7050; J7512; J7605; J7613

== ENCOUNTER 2023-07-27 00:50 | Emergency (ER) | payer OTHER ==
--- OUTSIDE RECORDS SUMMARY | 2023-07-27 00:53 | XMS REPORT | Clinical Summary ---
:1950 Author Organization [facility] MD Still [facility] Center Address [address] [place] [address] Care Team Providers Name Role Phone Daly Lynn MD Primary Care Provider Faraz Bueno "Tarsha" Unavailable [phone] Faraz Bueno "Tarsha" Unavailable [phone] Jori Lynn MD Unavailable Allergies Active Allergy Reactions Criticality Noted Date Comments Amoxicillin Itching Low 08/06/2016 [...] of skin Active Problems Problem Noted Date Diagnosed Date Renal impairment 10/20/2018 Morbid (severe) obesity due to excess calories 05/14/2017 Peripheral edema 02/05/2017 Essential (primary) hypertension 08/07/2016 halfway current use of anticoagulant 08/07/2016 Sleep apnea 08/07/2016 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/06/2016 Cancer Staging: Clinical stage from 08/07: Stage IA (Primary) - Signed by Daly Lynn MD on 08/29/2016 Atrial fibrillation 08/06/2016 Diabetes mellitus 08/06/2016 Surgical History Surgery Date Site/Laterality Comments COLONOSCOPY Normal HYSTEROSCOPY 05/03/2016 TUBAL LIGATION Bilateral SC LAPAROSCOPY TOT 08/15/2016 N/A Procedure: RO BOTIC ASSISTED HYSTERECTOMY >250 G TOTAL HYSTER ECTOMY; Surgeon: W/TUBE/OVAR Daly gupta MD; [facility]: [facility]; Service: RESEARCH AGRICULTURAL ENGINEER - GYNECOLOGI C ONCOLOGY SC SALPINGO-OOPHORECTOMY 08/15/2016 Bilateral Procedu re: ROBOTIC ASSISTED COMPL/PRTL UNI/BI SPX SALPINGO-O OPHORECTOMY; Surgeon: Daly Lynn MD; [place]; Service: RESEARCH AGRICULTURAL ENGINEER - G YNECOLOGIC ONCOLOGY SC INTRAOP SENTINEL LYMPH 08/15/2016 Bilateral Proced ure: INTRAOPERATIVE NODE ID W/DYE INJECTION LYMPHATI C MAPPING; ROBOTIC SENTINEL LYMPH N ODE MAPPING AND LYMPH NODE B IOPSY; Surgeon: Daly Lynn MD; [place]; Service: RESEARCH AGRICULTURAL ENGINEER - G YNECOLOGIC ONCOLOGY Medical History Medical [...] = 0.6 oz pure alcoho l) Sex and Gender Information Value Date Recorded Sex Assigned at Not on file Gender Identity Not on file Sexual Orientation Not on file Obstetrics History Para Term [...] Vaccination (#1) 04/03/1951 Results Not on fileafter 07/27/2022 Insurance Payer Benefit Plan / Subscriber ID Effective Phone Address T ype Group Dates MEDICARE MEDICARE PART [id number] 2017-Pres [phone] [facility] Medicare A AND B ent [id number] [address] [place] [address] [id number] 2014-Pres [address] MEDICARE ent [id number] [place] [address] Nhung Munson Personal/Family Self 1950 [address] [place] [address] Advance Directives Code Status Date Activated Date Inactivated Comments Full Code 08/15/2016 10:41 AM 08/16/2016 1:29 PM Care Teams Manager Of Quality Relationship Specialty Start Date End Date Daly Lynn, PCP - General Gynecologic Medical 07/22/16 MD Oncology Faraz Bueno PCP - External Obstetrics/Gynecology 01/26/17 "MD Krystle Referring Faraz Bueno PCP - External Follow Obstetrics/Gynecology 7 "MD Krystle Up A Jori Lynn MD Consulting Physician Internal Medicine 08/13/16 [address] [place] [address]
--- OUTSIDE RECORDS SUMMARY | 2023-07-27 01:03 | XMS REPORT | Continuity of Care Document ---
:1950 Author Organization [facility] t Address [address] [place] [address] [address] [place] [address] Care Team Providers Name Role Phone Gustavo Thomas Primary Care Physician FABIAN LOPEZ Attending Clinician Unavailable FABIAN LOPEZ Attending Clinician Unavailable AFSHAN GARIBAY Attending Clinician Unavailable AFSHAN GARIBAY Attending Clinician Unavailable 1, [facility] Sleep Lab Bed Attending Clinician Unavailable Afshan Garibay MD Attending Clinician Doctor Unassigned, O'Neill Attending Clinician Unavailable Only, [facility] Test Attending Clinician Unavailable Nataliia Cherry MD Attending Clinician NATALIIA CHERRY Attending Clinician Unavailable Giovanna ELDRIDGE, Lupe Attending Clinician Michael Urrutia DO Attending Clinician Carissa POWERS, Acacia Attending Clinician MICHAEL URRUTIA Attending Clinician Unavailable Florentino Jenkins Attending Clinician Unavailable Preet POWERS, Sergio Espinosa Attending Clinician OSVALDO HIDALGO Attending Clinician Unavailable ROMEL SHIPLEY Attending Clinician Unavailable GILMAR CONNORS Admitting Clinician Unavailable Carissa POWERS, Acacia Admitting Clinician Sherine Machado Admitting Clinician Unavailable Physician, No Primary or Family Admitting Clinician UnavailSergio Workman MD Admitting Clinician ROMEL SHIPLEY Admitting Clinician Unavailable Payers Payer Name Policy Type Policy Number Effective Date Expiration Date S yury [facility] [id number] 2014 2024 00:00:00 00:00:00 MEDICARE PART A [id number] 2017 \\T\\ B 00:00:00 [id number] 2021 00:00:00 MEDICARE PART A [id number] 2017 AND B 00:00:00 [facility] MEDICARE [id number] 2014 SUPPLEMENT 00:00:00 Problems Condition Condition Condition [...] 9-20 it y of is is 00:00: [place] [facility] Atrial Atrial Disease Active Univers fibrillati fibrillati 9-20 it y of on on 00:00: [place] [facility] DM DM Disease Active Univers (diabetes (diabetes 9 ity of mellitus) mellitus) 00:[place] 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 00:00: [place] disease disease 00 Medical Branch Acute Acute Disease Active Univers congestive congestive 9 it y of heart heart 00:00: [place] failure, failure, 00 Medica l unspecifie unspecifie Br anch d heart d heart failure failure type type Complicati Complicati Disease Active U T on of 05-03 Health arterioven arterioven 00:00: ous ous 00 dialysis dialysis fistula fistula 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 03-25 Health disease disease 00:00: 00 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 6- Health disease disease 00:00: 00 Renal Renal Disease Active Univers impairment impairment 2-13 it y of 00:00: [place] 00 MD [facility] Morbid Morbid Disease Active Univers (severe) (severe) 9 ity of obesity obesity 00:00: [place] due to due to 00 excess excess [facility] Peripheral Peripheral Disease Active U nivers edema edema 6 ity of 00:00: [place] 00 MD [facility] Essential Essential Disease Active 2015-09 Uni vers (primary) (primary) 2 ity of hypertensi hypertensi [place] [facility] long term care pharmacist long term care pharmacist Disease Active 2015-09 Uni vers current current 2- ity of use of use of 00:00: [place] anticoagul anticoagul 00 MD [facility] Sleep Sleep Disease Active 2015-09 Univers apnea apnea 2- ity of 00:00: [place] 00 MD [facility] Malignant Malignant Disease Active 2015-09 Uni vers neoplasm neoplasm 1- ity of of of 00:00: [place] endometriu endometriu 00 MD [facility] Atrial Atrial Disease Active 2015-09 Univers fibrillati fibrillati 1-30 it y of on on 00:00: [place] 00 MD [facility] Diabetes Diabetes Disease Active 2015-09 Unive rs mellitus mellitus 1-30 ity of 00:00: [place] 00 MD [facility] SARS-CoV-2 SARS-CoV- Diagnosis Active 2021-11-05 Memoria vaccinatio [...] sulfamet DA Active [facility] hoxazole 05-08 [place] 00:00: [facility] [address] trim[facility]o DA Active U [facility] prim 05-08 [place] 00:00: [facility] amoxicil DA Active U [facility] anna 05-08 [place] 00:00: Health [address] sulfamet DA Active U [facility] hoxazole 05-08 [place] 00:00: Health [address] trimetho DA Active U [facility] 0 [facility] prim 05-08 [place] 00:00: Health [address] amoxicil DA Active U [facility] 0 [facility] anna 05-08 [place] 00:00: Health [address] Amoxicil Propensi Active Itching 2015-09 Unive rs anna ty to 1-30 ity of adverse 00:00: [place] reaction 00 MD [facility] Sulfamet Propensi Active Itching 2015-09 Unive rs hoxazole ty to 10-06 ity of -Trimeth adverse 00:00: [place] oprim reaction 00 MD [facility] Amoxicil Amoxicil Active Low Itching 2015-09 Memor dianna anna anna 10-06 l 00:00: [place] 00 Penicill Allergy Active Itching 2015-09 UT ins to 10-06 Health substanc 00:00: e 00 Sulfamet Allergy Active Itching 2015-09 UT hoxazole to 10-06 Health -Trimeth substanc 00:00: oprim e 00 Family History Family Member Diagnosis Comments Start Date Stop Date Source Maternal aunt -Breast cancer Univers ity [facility] Maternal grandmother Hypertension Un [facility]ity [facility] [place] [facility] Maternal grandmother Stroke Univ ersity [facility] Natural mother Stroke [facility] Social History Social Habit Start Date Stop Date Quantity Comments Source Sexual orientation [facility] Exposure to Not sure University SARS-CoV-2 (event) [facility] Education 2021-05-25 2021-05-25 14 University of 00:00:00 00:00:00 [facility] Tobacco use and 2021-05-08 2021-05-08 Smokeless tobacco [place] [facility] exposure 00:00:00 00:00:00 non-user History of Social 2020-06-02 2020-06-02 Univers ity of function 00:00:00 00:00:00 [facility] Alcohol intake 2019-06-02 2019-06-02 Current [facility] 00:00:00 00:00:00 non-drinker of [facility] Tobacco Comment 2016-08-06 2016-08-06 has had Universit y of 00:00:00 00:00:00 secondhand smoke [place] [facility] Sex Ass[birth year] At [birth year] Universit y of 00:00:00 00:00:00 Lorie shultz [facility] Smoking Status Start Date Stop Date Source Social History [facility] Medications Ordered Filled Start Stop Current Ordering Indication Dosage Frequency Signature Comments Components Source Medication Medication Date Date Medication? Clinician (SIG) Name Name Polly 2022-0 No unit/mL KwikPen 8-04 (U-100) 00:00: Insulin 100 00 unit/mL subcutaneou s Humalog 2021-0 No unit/mL KwikPen 8-04 (U-100) 00:00: Insulin 100 00 unit/mL subcutaneou s allopurinol 2021-0 No 1mg 100 mg 7-23 tablet 00:00: 00 allopurinol 2021-0 No 1mg 100 mg 7-23 tablet 00:00: 00 Dose 2021-0 No Unknown 7-22 00:00: 00 Dose 2021-0 No Unknown 7-22 00:00: 00 Dose 2021-0 No Unknown 7-21 00:00: 00 Dose 2021-0 No Unknown 7-21 00:00: 00 Dose 2021-0 No Unknown 7-21 00:00: 00 Dose 2021-0 No Unknown 7-21 00:00: 00 Dose 2-0 No Unknown 7-21 00:00: 00 Dose 2021-0 No Unknown 7-21 00:00: 00 Dose 2-0 No Unknown 7-21 00:00: 00 Dose 2021-0 No Unknown 7-21 00:00: 00 Dose 2-0 No Unknown 7-21 00:00: 00 Dose 2021-0 No Unknown 7-21 00:00: 00 Dose 2021-0 No Unknown 7-21 00:00: 00 Dose 2021-0 No Unknown 7-21 00:00: 00 Dose 2-0 No Unknown 7-21 00:00: 00 Dose 2-0 No Unknown 7-21 00:00: 00 Dose 2-0 No Unknown 7-12 00:00: 00 Dose 2-0 No Unknown 7-12 00:00: 00 Victoza 2021-0 No (18 3-Trena 0.6 6-18 mg/3 mg/0.1 mL 00:00: mL) (18 mg/3 00 mL) subcutaneou s pen injector Victoza 2021-0 No (18 3-Trena 0.6 6-18 mg/3 mg/0.1 mL 00:00: mL) (18 mg/3 00 mL) subcutaneou s pen injector Victoza 2021-0 No (18 3-Trena 0.6 6-01 mg/3 mg/0.1 mL 00:00: mL) (18 mg/3 00 mL) subcutaneou s pen injector atorvastati 2-0 No 1mg n 20 mg 6-01 tablet 00:00: 00 furosemide 2022-0 No mg 40 mg 6-01 tablet 00:00: 00 Victoza 2022-0 No (18 3-Trena 0.6 6-01 mg/3 mg/0.1 mL 00:00: mL) (18 mg/3 00 mL) subcutaneou s pen injector atorvastati 2-0 No 1mg n 20 mg 6-01 tablet [...] Dose 2022-0 No Unknown 4-12 00:00: 00 [place] 2022-0 No 1gram 8.4 gram 4-12 oral powder [...] 2022-0 No Unknown 3- 00:00: 00 Dose 2-0 No Unknown 3- 00:00: 00 Dose 2022-0 No Unknown 3- 00:00: 00 Dose 2022-0 No Unknown 3- 00:00: 00 Dose 2022-0 No Unknown 3- 00:00: 00 Dose 2022-0 No Unknown 3- 00:00: 00 Dose 2-0 No Unknown 3- 00:00: 00 Dose 2-0 No Unknown 3- 00:00: 00 Dose 2-0 No Unknown 3- 00:00: 00 Dose 2-0 No Unknown 3- 00:00: 00 Dose 2-0 No Unknown 3- 00:00: 00 Dose 2-0 No Unknown 3- 00:00: 00 Dose 2-0 No Unknown 3- 00:00: 00 Dose 2-0 No Unknown 3- 00:00: 00 Dose 2-0 No Unknown 3- 00:00: 00 Dose 2-0 No Unknown 3- 00:00: 00 carvedilol Yes Take 25 mg M emoria (COREG) 25 3-01 by mouth l mg tablet 18:54: twice [place] 47 daily. furosemide Yes Take 40 mg M emoria (LASIX) 40 3-01 by mouth l mg tablet 18:54: twice [place] 47 daily. 40mg in AM, 20mg in [...] by mouth l 20 mg 18:54: daily. [place] tablet 47 allopurinol Yes Take 100 Me moria (ZYLOPRIM) 3-01 mg by l 100 mg 18:54: mouth [place] tablet 47 daily. amiodarone Yes Take 200 Mem oria (PACERONE) 3-01 mg by l 200 mg 18:54: mouth [place] tablet 47 daily. fluticasone Yes Inhale 1 [...] s pen injector Dose 2020-09 No Unknown 09-17 00:00: 00 furosemide 2020-09 No mg 40 mg 1-11 tablet 00:00: 00 Victoza 2020-09 No (18 3-Trena 0.6 1-11 mg/3 mg/0.1 mL 00:00: mL) (18 mg/3 00 mL) subcutaneou s pen injector Dose 2020-09 No Unknown 09-17 00:00: 00 furosemide 2020-09 No mg 40 [...] units SC before meals for DM acetaminoph 2021-0 Yes Take by Uni vers en 9-28 [...] tablet by Branch mouth at bedtime docusate 0 Yes 100mg Take 100 Univ ers (COLACE) [...] tablet by Branch mouth at bedtime docusate 0 Yes 100mg Take 100 Univ ers (COLACE) 9-28 mg by ity of 100 mg 01:48: mouth 2 [place] capsule 05 (two) Medical times Branch daily. carvediloL 0 Yes 25mg Take 25 mg U nivers [...] 2 [place] capsule 05 (two) Medical times [place] daily. carvediloL Yes 25mg Take 25 mg [...] acetaminoph Yes Take by Uni vers en 9- mouth. ity of (TYLENOL) 01:48: [place] 325 mg Cap 05 Medical Branch allopurinoL Yes 100mg Take 100 U nivers 100 mg 9-28 mg by ity of tablet 01:48: mouth [place] 05 daily. Medical Branch atorvastati Yes 10mg Take 10 mg Univers n 10 mg 9-28 by mouth ity of tablet 01:48: once now. Give 1 Medical tablet by Branch mouth at bedtime docusate 0 Yes 100mg Take 100 Univ ers (COLACE) 9-28 mg by ity of 100 mg 01:48: mouth 2 [place] capsule 05 (two) Medical times [place] daily. carvediloL Yes 25mg Take 25 mg [...] 2 [place] capsule 05 (two) Medical times [place] daily. carvediloL Yes 25mg Take 25 mg [...] 325 mg Cap 05 Medical Branch amiodarone 2020- No 400mg Take 400 U nivers 400 mg 06-01 mg by ity of tablet 10:34: 00:00 mouth 2 [place] 06 :00 (two) Medical times Branch daily. AMLODIPINE 2020- No 5mg 5 mg. Unive rs BESYLATE, 06-01 Tablet by ity of BULK, MISC 10:34: 00:00 mouth two [place] 06 :00 times a Medical day for Branch pulmonary Edema acetaminoph Yes 650mg 650 mg, Un uri en 06-01 Oral, ity of (TYLENOL) 01:44: Q6HPRN, [place] tablet 650 28 Starting Medic al mg on Thu Branch 05/31/21 at 2043, Until Discontinu ed, Routine, Pain (scale 1-3) apixaban 5 2020- No 1358 5mg Take 1 Univ ers mg tablet 06-01 tablet by ity of 00:00: 04:59 mouth 2 [place] 00 :00 (two) Medical times Branch daily for 30 days. Indication s: atrial fibrillati on furosemide 2020- No [id number] 80mg Take 1 Univers 80 mg 9-25 10- tablet by ity of tablet 00:00: 04:59 mouth [place] 00 :00 every Medical morning Branch and evening for 30 days. apixaban 5 2020- No 1358 5mg Take 1 Univ ers mg tablet 06-01- tablet by ity of 00:00: 04:59 mouth 2 [place] 00 :00 (two) Medical times Branch daily for 30 days. Indication s: atrial fibrillati on furosemide 2020- No [id number] 80mg Take 1 Univers 80 mg 9-25 10-26 tablet by ity of tablet 00:00: 04:59 mouth [place] 00 :00 every Medical morning Branch and evening for 30 days. apixaban 5 2020- No 1358 5mg Take 1 Univ ers mg tablet - 10- tablet by ity of 00:00: 04:59 mouth 2 [place] 00 :00 (two) Medical times Branch daily for 30 days. Indication s: atrial fibrillati on furosemide 2020- No [id number] 80mg Take 1 Univers 80 mg 9-25 [...] mg 00 :00 dose, On Medical Thu [place] 05/29/21 at 0630, Routine apixaban Yes 5mg 5 mg, Univers (ELIQUIS) 05-29 Oral, BID, ity of tablet 5 mg 01:00: First dose [place] 00 on [facility] 05/28/21 at Branch 2000, Until Discontinu ed, Routine levoFLOXaci 2020- No 250mg 250 mg, U nivers n 05-28 Oral, ity of (LEVAQUIN) 12:00: 16:14 Q48H, [place] tablet 250 00 :00 First dose Med ical mg on [place] 05/28/21 at 0700, Until Discontinu ed, AMANDA
Re ason for Anti-Infec tive: Documented Infection< br>Documen cathy Infection Site: Urine
D uration of Therapy: 7 days sulfur 2020- No [id number] 5mL 5 mL, Unive rs hexafluorid 05-27 Intravenou i ty of e microsphr 18:15: 18:07 s, ONCE, 1 [place] (LUMASON) 00 :00 dose, On Medica l injection 5 Mon [place] mL 05/27/21 at 1315, Routine
membership sales advisor approving Restricted medication : RAJA, POWERS zolpidem Yes 5mg 5 mg, Univers (AMBIEN) 05-27 Oral, ity of tablet 5 mg 02:34: QHSPRN, [place] as 20 Starting Medical on [place] Branch 05/26/21 at 2134, Until Discontinu ed, Routine, Insomnia bumetanide 2020- No 2mg 2 mg, Slow Univers (BUMEX) 05-26 IV Push, ity of injection 2 19:00: 15:39 TID, First [place] mg 00 :47 dose Medical (after Branch last modificati on) on [place] 05/26/21 at 1400, Until Discontinu ed, Routine heparin 2020- No 1000U/h 1,000 Unive rs 25,000 05-26 Units/hr ity of Units/250 18:48: 16:21 (10 [place] mL 33 :17 mL/hr), IV Medical (Premixed Infusion, Branc h Bag) in TITRATE, 0.45 % NS Parameters in Admin. Instr., Starting on [place] 05/26/21 at 1348
CA UTION - If LMWH given in ER, AVOID bolus and start next dose/drip 12 hrs after ER dosage.&nb sp; M ust program rate using programmab le infusion pump.&nbsp ; Kristine ck with the ordering provider first prior to any administra tion should the patient be on existing/a dditional anticoagul ant therapy. Rang e, Dosing and Testing: &nbs p;[facility], AND [facility] ONLY - aPTT < 35: & nbsp;Bolus [...]
heparin 2020- No 3000U FOR Univers (1,000 05-26 REBOLUSING ity of unit/mL, 10 17:48: 16:21 , Starting [place] mL vial) 34 :17 on [facility] for 05/26/21 at Branch Rebolusing 1248, Until 05/28/21 at 1121, Routine
Dosing based on aPTT testing parameters (refer to continuous heparin drip order).
heparin 2020- No 5000U 5,000 Univers 1000 05-26 Units, IV ity of unit/mL 17:45: 19:23 Push, [place] injection 00 :00 ONCE, 1 Medical Soln 5,000 dose, On Branc h Units [place] 05/26/21 at 1245, Routine allopurinoL Yes 100mg 100 mg, Un uri (ZYLOPRIM) 05-26 Oral, ity of tablet 100 14:00: DAILY, [place] mg 00 First dose Medical on On License Of [facility] 05/26/21 at 0900, Until Discontinu ed, Routine enoxaparin 2020- No 40mg 40 mg, Univ ers (LOVENOX) 05-26 Subcutaneo ity of injection 14:00: 17:42 us, DAILY, [place] 40 mg 00 :50 First dose Medical on On License Of [facility] 05/26/21 at 0900, Until Discontinu ed, Routine acetaminoph No 500mg 500 mg, U nivers en 05-26 Oral, ity of (TYLENOL) 12:15: 11:20 ONCE, 1 [place] tablet 500 00 :00 dose, On Medic al mg On License Of [facility] 05/26/21 at 0715, Routine levoFLOXaci No 500mg 500 mg, IV Univers n in D5W 05-26 Piggyback, ity of (LEVAQUIN) 11:00: 15:14 Q24H ABX, [place] 500 mg/100 00 :04 First dose Med ical mL on On License Of [facility] Piggyback 05/26/21 at 500 mg 0600, Until Discontinu ed, Administer over 60 Minutes, 100 mL
Reas on for Anti-Infec tive: Documented Infection< br>Documen cathy Infection Site: Urine
D uration of Therapy: 7 days melatonin Yes 3mg 3 mg, Univers (MELATIN) 05-26 Oral, ity of tablet 3 mg 01:18: QHSPRN, [place] as 41 Starting Medical on [facility] Branch 05/25/21 at 2018, Until Discontinu ed, Routine, Insomnia docusate Yes 100mg 100 mg, Unive rs (COLACE) 05-26 Oral, BID, ity o f capsule 100 01:00: First dose [place] mg 00 on [facility] Medical 05/25/21 at Branch 2000, Until Discontinu ed, Routine insulin NPH Yes 40U 40 Units, U nivers and regular 05-25 Subcutaneo it y of human 70-30 22:00: , [place] (HUMULIN 00 QAM+PM, Medical 70-30 U-100 First dose Br anch INSULIN) on [facility] 100 unit/mL 05/25/21 at (70-30) 1700, injection Until 40 Units Discontinu ed Sliding Yes Subcutaneo Univ ers Scale 05-25 us, AC+HS, ity of Insulin-Reg 21:30: First dose [place] ular + Fsbg 00 on [facility] Medica l Testing 05/25/21 at Branch 1630, Until Discontinu ed, Routine carvediloL 2020- No 25mg 25 mg, Univ ers (COREG) 05-25 Oral, ity of tablet 25 19:15: 22:45 ONCE, 1 [place] mg 00 :00 dose, On Medical [facility] 05/25/21 at 1415, Routine atorvastati 2020- No 10mg 10 mg, Uni vers n (LIPITOR) 05-25 Oral, ity of tablet 10 19:15: 20:04 ONCE, 1 [place] mg 00 :00 dose, On Medical [facility] 05/25/21 at 1415, Routine glucagon Yes 1mg 1 mg, Univers (GLUCAGEN 05-25 Intramuscu ity of DIAGNOSTIC 18:03: lar, [place]N, [place] 31 Starting Medical injection 1 on Sat Branch mg 05/25/21 at 1303, Until Discontinu ed, AMANDA, Blood Glucose < or = 70 mg/dL and patient is unable to swallow or has mental changes. dextrose 50 2020- Yes 25mL 25 mL, Univ ers % in water 05-25 Slow IV ity of (D50W) 18:03: Push, PRN, [place] injection 31 Starting Medica l 25 mL on Sat Branch 05/25/21 at 1303, Until Discontinu ed, AMANDA, Blood Glucose < or = 70 mg/dL and patient is unable to swallow or has mental status changes. levoFLOXaci 2020-2020- No 750mg 750 mg, IV Univers n [...] subcutaneou s pen injector Victoza 0 No (18 3-Trena 0.6 8-13 mg/3 mg/0.1 [...] subcutaneou s pen injector Victoza 0 No (18 3-Trena 0.6 8-03 mg/3 mg/0.1 mL 00:00: mL) (18 mg/3 00 mL) subcutaneou s pen injector Victoza 0 No 1(18 3-Trena 0.6 8-03 mg/3 mg/0.1 mL 00:00: mL) (18 mg/3 00 mL) subcutaneou s pen injector Flonase 0 No 1mcg/ac Allergy 5-13 tuation Relief 50 00:00: mcg/actuati 00 on nasal spray,suspe nsion Flonase 0 No 1mcg/ac Allergy 5-13 tuation Relief 50 00:00: mcg/actuati 00 on nasal spray,suspe nsion Victoza 0 No 1(18 3-Trena 0.6 4-19 mg/3 mg/0.1 mL 00:00: mL) (18 mg/3 00 mL) subcutaneou s pen injector Novolin N 0 No unit/mL NPH U-100 4-19 Insulin 00:00: isophane 00 100 unit/mL subcutaneou s susp atorvastati 0 No 1mg n 20 mg 4-19 tablet 00:00: 00 allopurinol 2020-0 No 1mg 100 mg 4-19 tablet 00:00: 00 Dose 2020-0 No Unknown 4-19 00:00: 00 clonidine 2020-0 No 1mg HCl 0.2 mg 4-19 tablet 00:00: 00 Eliquis 2.5 2020-0 No 1mg mg tablet 419 00:00: 00 furosemide 2020-0 No mg 40 mg 4-19 tablet 00:00: 00 spironolact 2020-0 No 1mg one 25 mg 4-19 tablet 00:00: 00 Victoza 2020-0 No 1(18 3-Trena 0.6 4-19 mg/3 mg/0.1 mL 00:00: mL) (18 mg/3 00 mL) subcutaneou s pen injector Novolin N 2020-0 No unit/mL NPH U-100 -19 Insulin 00:00: isophane 00 100 unit/mL subcutaneou s susp atorvastati 2020-0 No 1mg n 20 mg 4-19 tablet 00:00: 00 allopurinol 2020-0 No 1mg 100 mg 4-19 tablet 00:00: 00 Dose 2020-0 No Unknown 12-24 00:00: 00 clonidine 2020-0 No 1mg HCl 0.2 mg 4-19 tablet 00:00: 00 Eliquis 2.5 2020-0 No 1mg mg tablet 12-24 00:00: 00 furosemide 2020-0 No mg 40 mg 4-19 tablet 00:00: 00 spironolact 2020-0 No 1mg one 25 mg 4-19 tablet 00:00: 00 Victoza 2020-0 No 1(18 3-Trena 0.6 2-25 mg/3 mg/0.1 mL 00:00: mL) (18 mg/3 00 mL) subcutaneou s pen injector Victoza 0 No 1(18 3-Trena 0.6 2-25 mg/3 mg/0.1 mL 00:00: mL) (18 mg/3 00 mL) subcutaneou s pen injector Victoza 2019- No 1(18 3-Trena 0.6 2-30 mg/3 mg/0.1 mL 00:00: mL) (18 mg/3 00 mL) subcutaneou s pen injector Victoza 2019-09 No 1(18 3-Trena 0.6 2-30 mg/3 mg/0.1 mL 00:00: mL) (18 mg/3 00 mL) subcutaneou s pen injector Novolin N 2019-09 No unit/mL NPH U-100 2-27 Insulin 00:00: isophane 00 100 unit/mL subcutaneou s susp allopurinol 2019- No 1mg 100 mg 2-27 tablet 00:00: 00 atorvastati 2019- No 1mg n 20 mg 2-27 tablet [...] Eliquis 2.5 2019-09 No 1mg mg tablet 2- 00:00: 00 carvedilol 2019- No 1mg 25 mg 2-27 tablet 00:00: 00 clonidine 2019- No 1mg HCl 0.2 mg 2-27 tablet 00:00: 00 spironolact 2019-09 No 1mg one 25 mg 2-27 tablet 00:00: 00 furosemide 2019- No mg 40 mg 2-27 tablet 00:00: 00 Victoza 2019- No 1(18 3-Trena 0.6 0-13 mg/3 mg/0.1 mL 00:00: mL) (18 mg/3 00 mL) subcutaneou s pen injector Novolin N 2019- No unit/mL NPH U-100 0-13 Insulin 00:00: isophane 00 100 unit/mL subcutaneou s susp allopurinol 2019-09 No 1mg 100 mg 0-13 tablet 00:00: 00 atorvastati 2019- No 1mg n 20 mg 0-13 tablet 00:00: 00 furosemide 2019- No mg 40 mg 0-13 tablet 00:00: 00 spironolact 2020-1 No 1mg one 25 mg 0-13 tablet 00:00: 00 Victoza 2020-1 No 1(18 3-Trena 0.6 0-13 mg/3 mg/0.1 mL 00:00: mL) (18 mg/3 00 mL) subcutaneou s pen injector Novolin N 2019- No unit/mL NPH U-100 0-13 Insulin 00:00: isophane 00 100 unit/mL subcutaneou s susp allopurinol 2019- No 1mg 100 mg 0-13 tablet 00:00: 00 atorvastati 2019- No 1mg n 20 mg 0-13 tablet 00:00: 00 furosemide 2019- No mg 40 mg 0-13 tablet 00:00: 00 spironolact 2019- No 1mg one 25 mg 0-13 tablet 00:00: 00 Victoza 2019-0 No 1(18 3-Trena 0.6 8-13 mg/3 mg/0.1 [...] mL) subcutaneou s pen injector Novolin N 2019-0 No unit/mL NPH U-100 2-03 Insulin 00:00: [...] Eliquis 2.5 2020-0 No 1mg mg tablet 1-02 00:00: 00 carvedilol 2020-0 No 1mg 25 [...] 100 mg -02 tablet 00:00: 00 amiodarone 2020-0 No 1mg 200 mg -02 tablet 00:00: 00 atorvastati 2020-0 No 1mg n 20 mg -02 tablet 00:00: 00 Eliquis 2.5 2020-0 No 1mg mg tablet 09-08 00:00: 00 carvedilol 2020-0 No 1mg 25 mg -02 tablet 00:00: 00 clonidine 2020-0 No 1mg HCl 0.2 mg -02 tablet 00:00: 00 spironolact 2020-0 No 1mg one 25 mg -02 tablet 00:00: 00 furosemide 2020-0 No mg 40 mg - tablet 00:00: 00 Claritin-D 2020-0 No 1mg 24 Hour 10 -02 mg-240 mg 00:00: tablet,exte 00 nded release Vitamin D3 2020-0 No 1%-" 50 mcg -02 (2,000 00:00: unit) 00 tablet Flonase 2020-0 [...] 25 mg -02 tablet 00:00: 00 allopurinol 2019-0 No 1mg 100 mg 1-02 tablet 00:00: 00 nystatin 2019-0 Yes Candidiasis Apply U nivers (MYCOSTATIN 9-26 of skin topically ity of ) 100,000 00:00: to [place] units/g 00 affected MD powder area(s) Anderso twice n daily. [facility] nystatin 0 Yes Apply Memoria (MYCOSTATIN 9-26 topically l ) 100,000 00:00: to [place] units/g 00 affected powder area(s) twice daily. nystatin 0 Yes Candidiasis Apply U nivers (MYCOSTATIN 9-26 of skin topically ity of ) 100,000 00:00: to [place] units/g 00 affected MD powder area(s) Anderso twice n daily. [facility] nystatin 0 Yes Candidiasis Apply U nivers (MYCOSTATIN 9-26 of skin topically ity of ) 100,000 00:00: to [place] units/g 00 affected MD powder area(s) Anders[place] twice n daily. [facility] nystatin 0 Yes Candidiasis Apply U nivers (MYCOSTATIN 9-26 of skin topically ity of ) 100,000 00:00: to [place] units/g 00 affected MD powder area(s) [place] twice n daily. [facility] nystatin 0 Yes Candidiasis Apply U nivers (MYCOSTATIN 9-26 of skin topically ity of ) 100,000 00:00: to [place] units/g 00 affected MD powder area(s) [place] twice n daily. [facility] nystatin 2018-0 Yes Candidiasis Apply U nivers (MYCOSTATIN 9-26 of skin topically ity of ) 100,000 00:00: to [place] units/g 00 affected MD powder area(s) [place] twice n daily. [facility] nystatin 2019-0 Yes Candidiasis Apply U nivers (MYCOSTATIN 9-26 of skin topically ity of ) 100,000 00:00: to [place] units/g 00 affected MD powder area(s) [place] twice n daily. [facility] nystatin 2019-0 Yes Candidiasis Apply U nivers (MYCOSTATIN 9-26 of skin topically ity of ) 100,000 00:00: to [place] units/g 00 affected MD powder area(s) [place] [facility] n daily[facility] nystatin Yes Candidiasis Apply U nivers (MYCOSTATIN 9-26 of skin topically ity of ) 100,000 00:00: to [place] units/g 00 affected MD powder area(s) Anderso twice n daily. [facility] nystatin Yes Candidiasis Apply U nivers (MYCOSTATIN 9-26 of skin topically ity of ) 100,000 00:00: to [place] units/g 00 affected MD powder area(s) Anderso twice n daily. [facility] nystatin Yes Candidiasis Apply U nivers (MYCOSTATIN 9-26 of skin topically ity of ) 100,000 00:00: to [place] units/g 00 affected MD powder area(s) Anderso twice n daily. [facility] nystatin Yes Candidiasis Apply U nivers (MYCOSTATIN 9-26 of skin topically ity of ) 100,000 00:00: to [place] units/g 00 affected MD powder area(s) Anderso twice n daily. [facility] nystatin Yes Candidiasis Apply U nivers (MYCOSTATIN 9-26 of skin topically ity of ) 100,000 00:00: to [place] units/g 00 affected MD powder area(s) Anderso twice n daily. [facility] atorvastati Yes 20mg Take 20 mg Univers n (LIPITOR) 9-25 by mouth ity of 20 mg 15:41: daily. [place] tablet 40 MD Leda quevedo [facility] allopurinol Yes 100mg Take 100 U nivers (ZYLOPRIM) 9-25 mg by ity of 100 mg 15:41: mouth [place] tablet 40 daily. MD Leda quevedo [facility] amiodarone 0 Yes 200mg Take 200 Un uri (PACERONE) 9-25 mg by ity of 200 mg 15:41: mouth [place] tablet 40 daily. MD Leda quevedo [facility] fluticasone 2018-0 Yes 1{spray Inhale 1 Univers (FLONASE) 9-25 } spray into ity of 50 15:41: each [place] mcg/spray 40 nostril nasal spray daily. Rgariana quevedo [facility] loratadine 0 Yes 10mg Take 10 mg U nivers (CLARITIN) 9-25 by mouth ity o f 10 mg 15:41: daily. [place] tablet [facility] carvedilol Yes 25mg Take 25 mg U nivers (COREG) 25 9-25 by mouth ity o f mg tablet 15:41: twice [place] [facility]. [facility] furosemide Yes 40mg Take 40 mg U [...] D3) 2,000 Anders[place] units tab n tablet [facility] apixaban Yes 2.5mg Take 2.5 Univ ers [...] [place] tablet 40 daily. MD Leda quevedo [facility] amiodarone Yes 200mg Take 200 Un uri (PACERONE) 9-25 mg by ity of 200 mg 15:41: mouth [place] tablet 40 daily. MD Leda quevedo [facility] fluticasone Yes 1{spray Inhale 1 Univers (FLONASE) 9-25 } spray into ity of 50 15:41: each [place] mcg/spray 40 nostril nasal spray daily. Rg o [facility] loratadine Yes 10mg Take 10 mg U nivers (CLARITIN) 9-25 by mouth ity o f 10 mg 15:41: daily. [place] tablet 40 MD Tompkins [facility] carvedilol Yes 25mg Take 25 mg U nivers (COREG) 25 9-25 by mouth ity o f mg tablet 15:41: twice [place] 40 daily. MD Leda quevedo [facility] furosemide Yes 40mg Take 40 mg U [...] 2,000 [place] units tab n tablet [facility] apixaban Yes 2.5mg Take 2.5 Univ ers (ELIQUIS) 9-25 mg by ity of 2.5 mg 15:41: mouth [place] tablet 40 twice daily. [facility] cloNIDine [...] mg tablet 15:41: twice [place] 40 daily. [facility] furosemide Yes 40mg Take 40 mg U [...] the skin [place] SUBCUTANEOU 40 daily. MD Marcelo [facility] cholecalcif Yes 2000U Take 2,000 Univers stefania, 9-25 Units by ity of vitamin D3, 15:41: mouth [place] (VITAMIN 40 daily. D3) 2,000 Anderso units tab n tablet [facility] apixaban Yes 2.5mg Take 2.5 Univ ers [...] 20 mg 15:41: daily. [place] tablet 40 [facility] carvedilol Yes 25mg Take 25 mg U nivers (COREG) 25 9-25 by mouth ity o f mg tablet 15:41: twice [place] 40 daily. MD Leda quevedo [facility] furosemide Yes 40mg Take 40 mg U nivers (LASIX) 40 9-25 by mouth ity o f mg tablet 15:41: twice [place] 40 daily. 40mg in Anderso AM, 20mg n in PM Cancer daily Center allopurinol Yes 100mg Take 100 U nivers (ZYLOPRIM) 9-25 mg by ity of 100 mg 15:41: mouth [place] tablet 40 daily. MD Leda quevedo [facility] INSULIN NPH Yes 45U Inject 45 U [...] D3) 2,000 [place] units tab n tablet [facility] apixaban Yes 2.5mg Take 2.5 Univ ers [...] 10 mg 15:41: daily. [place] tablet 40 [facility] amiodarone Yes 200mg Take 200 Un uri (PACERONE) 9-25 mg by ity of 200 mg 15:41: mouth [place] tablet 40 daily. MD Leda quevedo [facility] fluticasone Yes 1{spray Inhale 1 Univers (FLONASE) 9-25 } spray into ity of 50 15:41: each [place] mcg/spray 40 nostril nasal spray daily. [facility] loratadine Yes 10mg Take 10 mg U nivers (CLARITIN) 9-25 by mouth ity o f 10 mg 15:41: daily. [place] tablet 40 [facility] carvedilol Yes 25mg Take 25 mg U nivers (COREG) 25 9-25 by mouth ity o f mg tablet 15:41: twice [place] 40 daily. MD Leda quevedo [facility] furosemide Yes 40mg Take 40 mg U [...] D3) 2,000 Anders[place] units tab n tablet [facility] apixaban Yes 2.5mg Take 2.5 Univ ers [...] mg tablet 15:41: twice [place] 40 daily. [facility] furosemide Yes 40mg Take 40 mg U [...] D3) 2,000 [place] units tab n tablet [facility] apixaban Yes 2.5mg Take 2.5 Univ ers [...] mouth ity of 20 mg 15:41: daily. [place] tablet 40 [facility] allopurinol Yes 100mg Take 100 U nivers (ZYLOPRIM) 9-25 mg by ity of 100 mg 15:41: mouth [place] tablet 40 daily. [facility] amiodarone Yes 200mg Take 200 Un uri (PACERONE) 9-25 mg by ity of 200 mg 15:41: mouth [place] tablet 40 daily. MD [facility] fluticasone Yes 1{spray Inhale 1 Univers (FLONASE) 9-25 } spray into ity of 50 15:41: each [place] mcg/spray 40 nostril nasal spray daily. Rg [facility] loratadine Yes 10mg Take 10 mg U nivers (CLARITIN) 9-25 by mouth ity o f 10 mg 15:41: daily. [place] tablet 40 [facility] carvedilol Yes 25mg Take 25 mg U nivers (COREG) 25 9-25 by mouth ity o f mg tablet 15:41: twice [place] 40 daily. MD Leda quevedo [facility] furosemide Yes 40mg Take 40 mg U [...] D3) 2,000 Anders[place] units tab n tablet [facility] apixaban Yes 2.5mg Take 2.5 Univ ers [...] 15:41: mouth [place] tablet 40 [facility]. [facility] 200mg Take 200 Un uri (PACERONE) 9-25 mg by ity of 200 mg 15:41: mouth [place] tablet 40 daily. [facility]ut[facility] Yes 1{spray Inhale 1 Univers (FLONASE) [...] mg tablet 15:41: twice [place] 40 daily. [facility] furosemide Yes 40mg Take 40 mg U [...] 2,000 [place] units tab n tablet [facility] apixaban Yes 2.5mg Take 2.5 Univ ers (ELIQUIS) 9-25 mg by ity of 2.5 mg 15:41: mouth [place] tablet 40 twice MD daily. [facility] cloNIDine Yes .2mg Take 0.2 Univ ers HCl 9-25 mg by ity of (CATAPRES) 15:41: mouth [place] 0.2 mg 40 twice tablet daily. [facility] [...] mg tablet 15:41: twice [place] 40 daily. [facility] furosemide Yes 40mg Take 40 mg U [...] the skin [place] SUBCUTANEOU 40 daily. MD Marcelo [facility] cholecalcif Yes 2000U Take 2,000 Univers stefania, 9-25 Units by ity of vitamin D3, 15:41: mouth [place] (VITAMIN 40 daily. D3) 2,000 Anderso units tab n tablet [facility] apixaban Yes 2.5mg Take 2.5 Univ ers [...] mouth ity of 20 mg 15:41: daily. [place] tablet 40 [facility] [...] mg tablet 15:41: twice [place] 40 daily. [facility] furosemide Yes 40mg Take 40 [...] 2,000 [place] units tab n tablet [facility] apixaban Yes 2.5mg Take 2.5 Univ ers [...] mg 15:41: mouth [place] tablet 40 daily. [facility] amiodarone Yes 200mg Take 200 Un uri (PACERONE) 9-25 mg by ity of 200 mg 15:41: mouth [place] tablet 40 daily. MD [facility] fluticasone Yes 1{spray Inhale 1 [...] mg tablet 15:41: twice [place] 40 daily. [facility] furosemide Yes 40mg Take 40 mg U [...] 2,000 [place] units tab n tablet [facility] apixaban Yes 2.5mg Take 2.5 Univ ers [...] mg tablet 15:41: twice [place] 40 daily. [facility] furosemide Yes 40mg Take 40 mg U [...] the skin [place] SUBCUTANEOU 40 daily. [facility] cholecalcif Yes 2000U Take 2,000 Univers stefania, 9-25 Units by ity of vitamin D3, 15:41: mouth [place] (VITAMIN 40 daily. D3) 2,000 Anderso units tab n tablet [facility] apixaban Yes 2.5mg Take 2.5 Univ ers [...] [place] tablet 40 daily. MD Leda quevedo [facility] amiodarone Yes 200mg Take 200 Un uri (PACERONE) 9-25 mg by ity of 200 mg 15:41: mouth [place] tablet 40 daily. MD [facility] fluticasone Yes 1{spray Inhale 1 [...] tablet 15:41: twice [place] 40 daily. MD [facility] furosemide Yes 40mg Take 40 [...] D3) 2,000 Anders[place] units tab n tablet [facility] apixaban Yes 2.5mg Take 2.5 Univ ers [...] breakfast. tablet [facility] apixaban Yes [...] MD tablet times a Thursday, Cancer Thursday [place] and Thursday. spironolact Yes Take 1 Baldo hong one 2-07 tablet by l (ALDACTONE) 00:00: mouth 3 Her guerra 25 mg 00 (three) tablet times a week Thursday, Thursday and Thursday. spironolact Yes 1{tbl} Take 1 Un uri one 2-07 tablet by ity of (ALDACTONE) 00:00: mouth 3 Gianni as 25 mg 00 (three) MD tablet times a Thursday, Cancer Thursday [place] and Thursday. spironolact Yes 1{tbl} Take 1 Un uri one 2-07 tablet by ity of (ALDACTONE) 00:00: mouth 3 Gianni as 25 mg 00 (three) MD tablet times a Thursday, Cancer Thursday [place] and Thursday. spironolact Yes 1{tbl} Take 1 Un uri one 2-07 tablet by ity of (ALDACTONE) 00:00: mouth 3 Gianni as 25 mg 00 (three) MD tablet times a Thursday, Cancer Thursday [place] and Thursday. spironolact Yes 1{tbl} Take 1 Un uri one 2-07 tablet by ity of (ALDACTONE) 00:00: mouth 3 Gianni as 25 mg 00 (three) MD tablet times a Thursday, Cancer Thursday [place] and Thursday. spironolact 2017-0 Yes 1{tbl} Take 1 Un uri one 2-07 tablet by ity of (ALDACTONE) 00:00: mouth 3 Gianni as 25 mg 00 (three) MD tablet times a Thursday, Cancer Thursday [place] and Thursday. spironolact 2017-0 Yes 1{tbl} Take 1 Un uri one 2-07 tablet by ity of (ALDACTONE) 00:00: mouth 3 Gianni as 25 mg 00 (three) MD tablet times a Thursday, Cancer Thursday [place] and Thursday. spironolact 2017-0 Yes 1{tbl} Take 1 Un uri one 2-07 tablet by ity of (ALDACTONE) 00:00: mouth 3 Gianni as 25 mg 00 (three) MD tablet times a Thursday, Cancer Thursday [place] and Thursday. spironolact 2017-0 Yes 1{tbl} Take 1 Un uri one 2-07 tablet by ity of (ALDACTONE) 00:00: mouth 3 Gianni as 25 mg 00 (three) MD tablet times a Thursday, Cancer Thursday [place] and Thursday. spironolact 2017-0 Yes 1{tbl} Take 1 Un uri one 2-07 tablet by ity of (ALDACTONE) 00:00: mouth 3 Gianni as 25 mg 00 (three) MD tablet times a Thursday, Cancer Thursday [place] and Thursday. spironolact 2017-0 Yes 1{tbl} Take 1 Un uri one 2-07 tablet by ity of (ALDACTONE) 00:00: mouth 3 Gianni as 25 mg 00 (three) MD tablet times a Thursday, Cancer Thursday [place] and Thursday. spironolact 2017-0 Yes 1{tbl} Take 1 Un uri one 2-07 tablet by ity of (ALDACTONE) 00:00: mouth 3 Gianni as 25 mg 00 (three) MD tablet times a Thursday, Cancer Thursday [place] and Thursday. spironolact 2017-0 Yes 1{tbl} Take 1 Un uri one 2-07 tablet by ity of (ALDACTONE) 00:00: mouth 3 Gianni as 25 mg 00 (three) MD tablet times a Anderso week n Thursday, Cancer Thursday Center and Thursday. Vital Signs Vital Name Observation Time Observation Value Comments Source Systolic blood 2021-06-04 01:12:00 135 mm[Hg] Univer [facility] Diastolic blood 2021-06-04 01:12:00 69 mm[Hg] Unive rsity [facility] [place] Heart rate 2021-06-04 01:12:00 82 /min [facility] Body temperature 2021-06-04 01:12:00 37.11 Lisette [facility] Respiratory rate 2021-06-04 01:12:00 18 /min [facility] Oxygen saturation in 2021-06-04 01:12:00 97 /min [facility] blood by [facility] [place] [place] Pulse oximetry Branch Body weight 2021-05-30 10:00:00 135.535 kg [facility] BMI 2021-05-30 10:00:00 56.46 kg/m2 [facility] Body height 2021-05-25 15:00:00 154.9 cm [facility] BP Systolic 2022-09-22 15:08:00 143 mm[Hg] [...] DATA REPORT 2021-10-25 06:01:00 [facility] ASSIGNMENT OF BENEFITS 2021-09-27 21:01:17 [facility] EXTERNAL PROVIDER RECORDS 2021-06-21 05:01:00 Doctor Unassigned, [facility] Name [facility] POCT GLUCOSE (AUTOMATED) 2021-06-03 17:07:00 [facility]acia [facility] PO[facility] GLUCOSE (AUTOMATED) 2021-06-03 13:21:00 Acacia Ferrer Uni [facility] EXTERNAL PROVIDER RECORDS 2021-06-03 05:01:00 Doctor Unassigned, [facility] Name [facility] POCT GLUCOSE (AUTOMATED) 2021-06-03 01:09:00 [facility] PO[facility]UCOSE (AUTOMATED) 2021-06-02 20:42:00 EzAcacia sherman [facility] PO[facility]UCOSE (AUTOMATED) 2021-06-02 16:34:00 Ezzo Ali [facility] PO[facility]UCOSE (AUTOMATED) 2021-06-02 12:22:00 EzzoAcacia Uni [facility] BASIC METABOLIC PANEL (NA, 2021-06-02 05:06:00 Gertrude Rosario [facility] K, CL, CO2, GLUCOSE, BUN, Medica l Branch CREATININE, CA) POCT GLUCOSE (AUTOMATED) 2021-06-02 02:37:00 EzAcacia sherman [facility] PO[facility]UCOSE (AUTOMATED) 2021-06-02 01:12:00 Ezzo Ali [facility] POCT GLUCOSE (AUTOMATED) 2021-06-01 20:39:00 Ezzo Ali [facility] POCT GLUCOSE (AUTOMATED) 2021-06-01 16:47:00 Ezzo [facility] POCT GLUCOSE (AUTOMATED) 2021-06-01 12:56:00 Ezzo Ali Uni versity [facility] MAGNESIUM 2021-06-01 10:37:00 Rachna Hoang [facility] COMP. METABOLIC PANEL 2021-06-01 10:37:00 Rachna Hoang [facility] ([id number]) Medical [place] POCT GLUCOSE (AUTOMATED) 2021-06-01 01:43:00 Acacia Ferrer [facility] POCT GLUCOSE (AUTOMATED) 2021-05-31 22:36:00 Acacia Ferrer Uni [facility] PROTEIN CREAT RATIO URINE 2021-05-31 19:58:00 Myles Rosario ra [facility] RANDOM [facility] US RETROPERITONEAL LIMITED 2021-05-31 19:06:22 Gertrude Rosario [facility] POCT GLUCOSE (AUTOMATED) 2021-05-31 17:40:00 EzAcacia sherman [facility] POCT GLUCOSE (AUTOMATED) 2021-05-31 13:22:00 Acacia Ferrer [facility] MAGNESIUM 2021-05-31 08:44:00 Rachna Hoang [place] [facility] COMP. METABOLIC PANEL 2021-05-31 08:44:00 Rachna Hoang [facility] ([id number]) [facility] POCT GLUCOSE (AUTOMATED) 2021-05-31 02:01:00 Acacia [facility] POCT GLUCOSE (AUTOMATED) 2021-05-30 22:20:00 Acacia Ferrer [facility] POCT GLUCOSE (AUTOMATED) 2021-05-30 17:02:00 Acacia Ferrer [facility] POCT GLUCOSE (AUTOMATED) 2021-05-30 13:17:00 Acacia Ferrer [facility] MAGNESIUM 2021-05-30 10:18:00 Rachna Hoang [facility] COMP. METABOLIC PANEL 2021-05-30 10:18:00 [id number] POCT GLUCOSE (AUTOMATED) 2021-05-30 01:58:00 Acacia Ferrer [facility] POCT GLUCOSE (AUTOMATED) 2021-05-29 21:10:00 Ezzo, Acacia [facility] POCT GLUCOSE (AUTOMATED) 2021-05-29 17:16:00 Ezzo, Acacia Uni [facility] POCT GLUCOSE (AUTOMATED) 2021-05-29 12:57:00 Acacia Ferrer Uni [facility] BASIC METABOLIC PANEL (NA, 2021-05-29 09:56:00 Teqwimuah, Tk U niversity [facility] K, CL, CO2, GLUCOSE, BUN, Medica l Branch CREATININE, CA) POCT GLUCOSE (AUTOMATED) 2021-05-29 03:08:00 Acacia Ferrer Uni [facility] POCT GLUCOSE (AUTOMATED) 2021-05-28 22:05:00 Carissa, Acacia [facility] POCT GLUCOSE (AUTOMATED) 2021-05-28 17:39:00 Acacia Ferrer Uni [facility] BASIC METABOLIC PANEL (NA, 2021-05-28 14:49:00 Teqwimuah, Tk U niversity [facility] K, CL, CO2, GLUCOSE, BUN, Medica l Branch CREATININE, CA) ACTIVATED PARTIAL THRMPLAS 2021-05-28 14:49:00 Rachna Hoang [facility] POCT GLUCOSE (AUTOMATED) 2021-05-28 13:55:00 Acacia Ferrer Uni [facility] CBC WITH DIFF 2021-05-28 11:40:00 Teqwimuah, Tk University o [facility] ACTIVATED PARTIAL THRMPLAS 2021-05-28 03:40:00 Teq[place]imuah, [facility]k [facility] PO[facility]SE (AUTOMATED) 2021-05-28 01:50:00 Acacia Ferrer Uni [facility] POCT GLUCOSE (AUTOMATED) 2021-05-27 22:40:00 Acacia Ferrer Uni [facility] ACTIVATED PARTIAL THRMPLAS 2021-05-27 20:29:00 Teqwimuah, Tk [facility] TRANSTHORACIC ECHO (TTE) 2021-05-27 18:07:00 Rachna Hoang [facility] W/ CONTRAST Medical [facility] POCT GLUCOSE (AUTOMATED) 2021-05-27 16:58:00 Acacia Ferrer [facility] MAGNESIUM 2021-05-27 15:26:00 Rachna Hoang [facility] BASIC METABOLIC PANEL (NA, 2021-05-27 15:26:00 Rachna Hoang [facility] K, CL, CO2, GLUCOSE, BUN, Medica l Branch CREATININE, CA) POCT GLUCOSE (AUTOMATED) 2021-05-27 12:57:00 Acacia Ferrer [facility] EXTRA TUBE LT. GREEN 2021-05-27 10:52:00 Acacia Ferrer [facility] ACTIVATED PARTIAL THRMPLAS 2021-05-27 10:17:00 Adrienne Esquivelarg U [facility] ACTIVATED PARTIAL THRMPLAS 2021-05-27 01:58:00 Rachna Hoang [facility] EXTRA TUBE LAV 2021-05-27 01:58:00 Acacia Ferrer o [facility] POCT GLUCOSE (AUTOMATED) 2021-05-27 00:50:00 Acacia [facility]rer [facility] POCT GLUCOSE (AUTOMATED) 2021-05-26 21:53:00 Acacia Ferrer [facility] ACTIVATED PARTIAL THRMPLAS 2021-05-26 18:25:00 Rachna Hoang [facility] POCT GLUCOSE (AUTOMATED) 2021-05-26 16:43:00 Michael Urrutia [facility] POCT GLUCOSE (AUTOMATED) 2021-05-26 13:16:00 Michael Urrutia [facility] BASIC METABOLIC PANEL (NA, 2021-05-26 11:00:00 u Crystal Ji [facility] K, CL, CO2, GLUCOSE, BUN, Medica l Branch CREATININE, CA) CBC WITH DIFF 2021-05-26 11:00:00 [facility] GLYCOS[facility]GLOBIN 2021-05-26 11:00:00 Rachna Hoang [facility] (A1C) [facility] POCT GLUCOSE (AUTOMATED) 2021-05-26 01:59:00 Michael Urruita [facility] POCT GLUCOSE (AUTOMATED) 2021-05-25 21:43:00 Michael Urrutia [facility] MRSA / MSSA SCREEN BY PCR, 2021-05-25 20:30:00 Acacia Ferrer [facility] (ID NOW RAPID 2021-05-25 11:33:00 Michael Urrutia [facility] TESTING) Medical Branch LAB ONLY COVID 2021-05-25 11:33:00 Singer [facility] INTERPRETATION [facility] URINALYSIS 2021-05-25 11:25:00 Singer [facility] [place] [facility] HB ECG ROUTINE & RHYTHM 2021-05-25 10:45:01 Singer [facility] XR CHEST 1 VW 2021-05-25 10:44:22 Singer [facility] BLOOD CULTURE SCREEN 2021-05-25 10:37:00 Michael Urrutia [facility] BLOOD CULTURE WORKUP 2021-05-25 10:37:00 Michael Urrutia [facility] GRAM POSITIVE BLOOD 2021-05-25 10:37:00 Michael Urrutia [facility] PATHOGENS DNA [facility] PROBE-AEROBIC TROPONIN I 2021-05-25 10:31:00 Singer [facility] [place] [facility] COMP. METABOLIC PANEL 2021-05-25 10:31:00 Michael Urrutia [facility] ([id number]) [facility] N-TERMINAL PRO-BNP 2021-05-25 10:31:00 Michael Urrutia [facility] CBC WITH DIFF 2021-05-25 10:30:00 Singer [facility] EKG-12 LEAD 2021-05-25 10:10:00 Singer [facility] EMERGENCY DEPARTMENT 2021-05-25 05:01:00 Doctor Unassigned, [facility] DOCUMENTS [facility] [id number] 2021-05-09 00:00:00 JIAN [facility] [place] [facility] [id number] 2021-05-08 00:00:00 GREBR.01 [facility] al Center [id number] 2021-05-08 00:00:00 GREBR.01 [facility] [id number] 2021-05-08 00:00:00 GREBR.01 [facility] al [place] Plan of Care Planned Activity Planned Date Details Comments Source Future Scheduled 2023-03-11 COVID-19 Vaccination [facility] [place] Test 10:09:37 (#1) [code = COVID-19 MD [facility] Vaccination (#1)] Center Future Scheduled 2023-03-11 COVID-19 Vaccination [facility] [place] Test 10:09:37 (#1) [code = COVID-19 MD And [facility] Vaccination (#1)] Center Future Scheduled 2023-03-11 COVID-19 Vaccination [facility] [place] Test 10:09:37 (#1) [code = COVID-19 MD And erson Cancer Vaccination (#1)] Center Future Scheduled 2023-03-11 COVID-19 Vaccination [facility] [place] Test 10:09:37 (#1) [code = COVID-19 MD And erson Cancer Vaccination (#1)] Center Future Scheduled 2023-01-26 COVID-19 Vaccination [facility] [place] Test 09:09:49 (#1) [code = COVID-19 MD And erson Cancer Vaccination (#1)] Center Future Scheduled 2023-01-26 COVID-19 Vaccination [facility] [place] Test 09:09:49 (#1) [code = COVID-19 MD And erson [...] Center Future Scheduled COVID-19 Vaccination Mem orial [facility] Test (1) [code = COVID-19 Vaccination (1)] Goal Plan of Care Note [code = 28400-6] Goal Plan of Care Note [code = 53815-8] Goal Plan of Care Note [code = 70334-6] Goal Plan of Care Note [code = 90323-1] Goal Plan of Care Note [code = 57324-4] Goal Plan of Care Note [code = 56878-8] Goal Plan of Care Note [code = 20404-4] Goal Plan of Care Note [code = 75217-7] Goal Plan of Care Note [code = 89690-9] Goal Plan of Care Note [code = 38887-6] Goal Plan of Care Note [code = 81578-1] Goal Plan of Care Note [code = 67352-1] Goal Plan of Care Note [code = 86592-0] Goal Plan of Care Note [code = 09555-1] Goal Plan of Care Note [code = 22355-8] Goal Plan of Care Note [code = 00247-1] Goal Plan of Care Note [code = 82215-0] Goal Plan of Care Note [code = 32778-9] Goal Plan of Care Note [code = 27644-3] Goal Plan of Care Note [code = 37428-6] Goal Plan of Care Note [code = 22561-3] Goal Plan of Care Note [code = 13884-4] Goal Plan of Care Note [code = 93726-0] Goal Plan of Care Note [code = 18285-9] Goal Plan of Care Note [code = 36085-5] Goal Plan of Care Note [code = 21382-6] Goal Plan of Care Note [code = 65726-9] Goal Plan of Care Note [code = 15227-1] Goal Plan of Care Note [code = 48100-7] Goal Plan of Care Note [code = 77895-1] Goal Plan of Care Note [code = 88164-3] Goal Plan of Care Note [code = 82133-9] Goal Plan of Care Note [code = 62321-2] Goal Plan of Care Note [code = 16013-2] Goal Plan of Care Note [code = 23669-2] Goal Plan of Care Note [code = 75798-0] Goal Plan of Care Note [code = 30389-7] Goal Plan of Care Note [code = 54345-4] Goal Plan of Care Note [code = 50273-0] Goal Plan of Care Note [code = 91799-7] Goal Plan of Care Note [code = 66451-1] Goal Plan of Care Note [code = 80201-4] Goal Plan of Care Note [code = 03896-2] Goal Plan of Care Note [code = 33424-9] Goal Plan of Care Note [code = 44263-5] Goal Plan of Care Note [code = 53593-8] Goal Plan of Care Note [code = 18885-6] Goal Plan of Care Note [code = 70018-3] Goal Plan of Care Note [code = 98058-3] Goal Plan of Care Note [code = 19937-2] Goal Plan of Care Note [code = 01917-0] Encounters Start End Encounter Admission Attending Care Care Encounter Source Date/Time Date/Time Type Type Clinicians Facility Department ID 2021-10-23 [id number] [place] 09:19:51 [facility] 2021-03-08 Outpatient JOHN [facility] [id number] [place] 01:04:08 [facility] 2021-01-16 Outpatient JOHN [facility] [id number] [place] 11:42:44 [facility] 2020-01-24 Outpatient LONNIE LOPEZ MHSE 7501 08:47:43 [facility] 2023-07-20 2023-07-20 Outpatient R [facility] [id number] [facility]23-06-25 Outpatient SFA SFA [id number] 023 Jc 14:47:49 14:47:49 101[address] [facility] [place] 2023-04-09 2023-04-09 Outpatient SFA SFA [id number] 023 Jc 11:15:56 11:15:56 0803 [facility] [place] 2023-03-23 2023-03-23 Outpatient SFA SFA 78788-5 023 Jc 16:03:46 16:03:46 0717 [facility] [place] 2022-12-25 2022-12-25 Outpatient SFA SFA [id number] 023 Jc 15:32:36 15:32:36 0420 [facility] [place] 2022-10-08 2022-10-08 Outpatient SFA SFA 15049-3 023 Jc 13:12:56 13:12:56 0201 [facility] [place] 2022-09-23 2022-09-23 Outpatient SFA SFA 54430-1 023 Jc 14:07:13 14:07:13 0117 [facility] 2022-09-22 2022-09-22 Outpatient SFA SFA 68892-6 023 Jc 14:58:14 14:58:14 0116 [facility] 2022-09-22 2022-09-22 Outpatient [id number]-i 00:00:00 00:00:00 Visit cdaf-4f16 daf-4f16-9 -5k60-68r o79-96y9z4 [id number] 1543-08-30 2022-05-06 Outpatient [id number]- [id number] 01p3om-0 00:00:00 00:00:00 Visit 7e14-03fx t76-58ua-6 -802b-ef5 02b-ef50db 0pj25uwp2 60bdd1 2021-12-31 2021-12-31 Office JOSE Lopez [facility] 1.2.840.114 [id number] [place] 09:45:00 12:29:18 Visit [facility] 350.1.13.58 [address] 9.2.7.2.686 [id number] 2 2021-11-05 2021-11-05 [facility]504 08:29:00 16:00:00 FABIAN Mcdonaldjoycelyn laly acuna [facility] 2021-11-04 2021-11-04 Outpatient R AFSHAN GARIBAY [facility] [id number] Univers 19:30:00 19:30:00 NOEMÍ GARIBAYL itrosalino [facility] 2021-10-25 2021-10-25 On Awake Counselor 1, [facility] Sleep Lab Bed [facility] 1. 2.840.114 [id number] Univers 19:30:00 22:00:00 Visit Afshan Garibay 350.1.13. 10 ity [facility] 4.2.7.2.686 [facility] [id number] [facility] [address] 2021-10-25 2021-10-25 Outpatient R NOEMÍ GARIBAYRen [facility] [id number] [facility] 19:30:00 19:30:00 [facility] 2021-10-25 2021-10-25 Orders Doctor WILLIE 1.2.840.114 [id number] Univers 00:00:00 00:00:00 Only Unassigned, OBEY 350.1.13.10 [facility]y [facility] 4.2.7.2.686 [facility] [id number] [facility] [address] 2021-10-08 2021-10-08 Telephonic JOSE Lopez [facility] 1.2.840.114 [id number] [place] 07:45:00 08:39:06 Encounter Fabian MICKY 350.1.13.58 Health [place] [address] 9.2.7.2.686 [id number] 2 2021-10-01 2021-10-01 Outpatient R VELIAMARLYNOSWALDNOEMÍL [facility] [id number] Univers 19:30:00 19:30:00 NOEMÍ GARIBAYL itrosalino [facility] 2021-09-27 2021-09-27 Laboratory Only, [facility] Test [facility] 1.2.840. 114 [id number] Univers 15:00:00 15:15:00 Only Nataliia Cherry 350.1.13.10 ity of [place] 4.2.7.2.686 [facility] [id number] [facility] [address] 2021-09-27 2021-09-27 Outpatient R ANA [facility] [id number] Univers 15:00:00 15:00:00 NATALIIA tejada of [facility] 2021-09-27 2021-09-27 Orders Doctor WILLIE 1.2.840.114 [id number] Univers 00:00:00 00:00:00 Only Unassigned, OBEY 350.1.13.10 ity [facility] 4.2.7.2.686 Gianni as [id number] [facility] [address] 2021-06-21 2021-06-21 Orders Doctor WILLIE 1.2.840.114 [id number] Univers 00:00:00 00:00:00 Only Unassigned, OBEY 350.1.13.10 ity of [facility] 4.2.7.2.686 Gianni as [id number] [facility] [address] 2021-06-04 2021-06-04 Transition Nikhil Heredia 1.2.840.114 [id number] Univers 00:00:00 00:00:00 of Care Luep Mckayy 350.1.13.10 it y [place] [id number] [facility] [address] 2021-05-25 2021-06-03 Hospital Michael Urrutia [facility] 1.2.840.1 14 [id number] Univers 05:22:00 21:20:00 Encounter [place], [facility] Health 350.1.13.10 [place] [id number] [facility] [address] (CLC) 2021-05-25 2021-05-25 Emergency X SINGER [facility] ERT [id number] Univers 05:22:00 05:22:00 MICHAEL tejada [facility] 2021-05-08 2021-05-23 Inpatient ASHLEE Post INTM.01 [id number] [facility] 11:40:00 18:33:00 [facility] 2021-[facility]-08 2021-05-08 Outpatient SARAN Jenkins REF [id number] [facility] 18:53:00 18:53:00 Florentino [address] [place] [facility], [facility] are [facility] 2021-05-08 2021-05-08 EXT [facility] OP [place], EXT MSRDP 1.2.840.114 1 [id number] [place] 00:00:00 00:00:00 Sergio Espinosa LOCATION 350.1.13.58 Health 9.2.7.2.686 [id number] 2021-05-08 2021-05-08 EXT MHH OP [place], EXT MSRDP 1.2.840.114 1 [id number] [place] 00:00:00 00:00:00 Sergio Espinosa LOCATION 350.1.13.58 Health 9.2.7.2.686 [id number] 0 2021-05-07 2021-05-[address] [facility] 1.2.840.114 [id number] [place] 09:30:38 10:10:32 Visit [facility] MED 350.1.13.58 [address] 9.2.7.2.686 [id number] 2 2021-05-07 2021-05-[address] [facility] 1.2.840.114 [id number] 09:30:38 10:10:32 Visit [facility] MED 350.1.13.58 [address] 9.2.7.2.686 [id number] 2 2021-02-05 2021-02-05 Outpatient LONNIE LOPEZ MHSE 7503 08:46:00 15:45:00 [facility] 2020-11-29 2020-11-29 Orders Zahira Cummings [id number] Memoria 00:00:00 00:00:00 Only r [place] 2020-06-15 2020-06-15 Office Zahira Cummings [id number] Memoria 16:30:00 17:00:00 Visit r [place] 2020-06-15 2020-06-15 Outpatient SAEED HIDALGO MDA MDA [id number] 00:00:00 00:00:00 OSVALDO quevedo 2020-01-27 2020-01-27 Outpatient KASSI CUELLARSE MED [id number] MH 08:12:00 12:48:00 [facility] 2019-10-20 2019-10-20 Outpatient MHSE MHSE 7500 05:20:00 05:20:00 [facility] Results Test Description Test Time Test Comments Results Result Comments Source COMPREHENSIVE METABOLIC PANEL 2022-09-24 04:35:28 Test Item Value Reference Range Interpretation Comme nts GLUCOSE (test code = 2217) 120 MG/DL 70-99 H BUN (test code = 220) 52 MG/DL 8-23 H CREATININE (test code = 2.18 MG/DL 0.60-1.30 H 2213) eGFR (2020 CKD-EPI) (test 24 ML/MIN/1.73 >60 L code = 55844) CALC BUN/CREAT (test code = 24 RATIO 03-04) SODIUM (test code = 223) 146 MEQ/L 133-146 POTASSIUM (test code = 2228) 4.5 MEQ/L 3.5-5.4 CHLORIDE (test code = 221) 102 MEQ/L 95-107 CARBON DIOXIDE (test code = 32 MEQ/L 19-31 H 2205) CALCIUM (test code = 220) 9.5 MG/DL 8.5-10.5 PROTEIN, TOTAL (test code = 6.4 G/DL 6.1-8.3 2228) ALBUMIN (test code = 220) 3.9 G/DL 3.5-5.2 CALC GLOBULIN (test code = 2.5 G/DL 1.9-3.7 2239) CALC A/G RATIO (test code = 1.6 RATIO 1.0-2.6 2233) BILIRUBIN, TOTAL (test code 0.3 MG/DL See_Comment [Automated message] The = 2206) system which ge nerated this result transmit cathy reference range: <=1.2. T he reference range was not u sed to interpret this result as normal/abnormal . ALKALINE PHOSPHATASE (test 99 U/L 40-142 code = 2204) AST (test code = 2218) 12 U/L 9-40 ALT (test code = 2219) 10 U/L 5-40 LIPID [id number] 04:35:28 Test Item Value Reference Range Interpretation [...] MOREINFORMATION , SEE CLIENT ANNOUNCE MENT AT [email or web address] RISK RATIO LDL/HDL 2.41 RATIO <3.22 (test code = 2238) URIC [id number] 04:35:28 Test Item Value Reference Range Interpretation Comments URIC ACID (test 10.4 MG/DL 2.7-6.1 H UNLESS OTHE RWISE code = 2233) INDICATED, ALL TESTING PERFORMED ATCLI NICAL PATHOLOGY [employer]. [address] [place] [id number] [place] [address] [email or web address] DIRECTOR: PRISCILLA FELIX M.D. CLIA NUMBER [id number] CAP ACCREDITATION N O. [id number] HEMOGLOBIN [id number] 04:25:12 Test Item Value Reference Range Interpretation Comments HEMOGLOBIN A1c (test 9.6 % 4.2-5.6 H [employer]IC AN DIABETES code = 93515) ASSOCIATION [employer] FOR HGB A1C: PREDIABETES/INC REASED [...] OR LABORATORY C ONSULTATION. ALBUMIN/CREATININE RATIO, URINE, [id number] 04:00:10 Test Item Value Reference Range Interpretation Comments CREATININE, URINE, 81.9 MG/DL NOT ESTAB CONC. (test code = 2072) ALBUMIN, URINE, 8.5 MG/DL NOT ESTAB RANDOM (test code = 19347) CALC ALBUMIN/CREAT, 104 MG/G <30 H Note: RND (test code = Albumin/Cre atinine 22196) ratio reference interval reflec ts ADA and NKF guideli samir. POCT GLUCOSE (AUTOMATED)2021-06-03 17:32:53 Test Item Value Reference Range Interpretation Comments POCT GLU (test code = 6711304860) 147 mg/dL 70-110 H Lab Interpretation (test code = Abnormal 81162-3) [facility] GLUCOSE (AUTOMATED)2021-06-03 13:30:58 Test Item Value Reference Range Interpretation Comments POCT GLU (test code = 6176846388) 105 mg/dL 70-110 Lab Interpretation (test code = Normal 70099-5) [facility] GLUCOSE (AUTOMATED)2021-06-03 01:10:52 Test Item Value Reference Range Interpretation Comments POCT GLU (test code = 7985449016) 193 mg/dL 70-110 H Lab Interpretation (test code = Abnormal 02543-2) [facility] GLUCOSE (AUTOMATED)2021-06-02 20:51:49 Test Item Value Reference Range Interpretation Comments POCT GLU (test code = 0978801822) 177 mg/dL 70-110 H Lab Interpretation (test code = Abnormal 94023-8) [facility] GLUCOSE (AUTOMATED)2021-06-02 16:52:35 Test Item Value Reference Range Interpretation Comments POCT GLU (test code = 8921834165) 161 mg/dL 70-110 H Lab Interpretation (test code = Abnormal 68544-9) [facility] GLUCOSE (AUTOMATED)2021-06-02 12:34:49 Test Item Value Reference Range Interpretation Comments POCT GLU (test code = 1285698682) 94 mg/dL 70-110 Lab Interpretation (test code = Normal 39039-0) [facility] METABOLIC PANEL (NA, K, CL, CO2, GLUCOSE, BUN, CREATININE, CA)2021-06-02 06:19:02 Test Item Value Reference Range Interpretation Comments NA (test code = 136 mmol/L 135-145 0650685914) K (test code = 4.0 mmol/L 3.5-5.0 5091396256) CL (test code = 99 mmol/L 98-108 6045489608) CO2 TOTAL (test code = 32 mmol/L 23-31 H 2631294160) AGAP (test code = 2-16 2115506337) BUN (test code = 90 mg/dL 7-23 H 8406038484) GLUCOSE (test code = 94 mg/dL 70-110 8402634971) CREATININE (test code = 2.39 mg/dL 0.50-1.04 H 1403120772) CALCIUM (test code = 8.5 mg/dL 8.6-10.6 L 4597649678) eGFR (test code = mL/min/1.73m2 1155304868) JONATHAN (test code = JONATHAN) Association of [...] tests). Lab Interpretation Abnormal (test code = 31303-0) [facility] GLUCOSE (AUTOMATED)2021-06-02 02:53:39 Test Item Value Reference Range Interpretation Comments POCT GLU (test code = 6234287266) 157 mg/dL 70-110 H Lab Interpretation (test code = Abnormal 68208-8) [facility] GLUCOSE (AUTOMATED)2021-06-02 02:53:34 Test Item Value Reference Range Interpretation Comments POCT GLU (test code = 7218729884) 195 mg/dL 70-110 H Lab Interpretation (test code = Abnormal 35440-6) [facility] GLUCOSE (AUTOMATED)2021-06-02 02:53:34 Test Item Value Reference Range Interpretation Comments POCT GLU (test code = 6896974495) 149 mg/dL 70-110 H Lab Interpretation (test code = Abnormal 94479-8) [facility] GLUCOSE (AUTOMATED)2021-06-01 16:58:33 Test Item Value Reference Range Interpretation Comments POCT GLU (test code = 5804484063) 196 mg/dL 70-110 H Lab Interpretation (test code = Abnormal 31176-0) [facility] GLUCOSE (AUTOMATED)2021-06-01 12:58:56 Test Item Value Reference Range Interpretation Comments POCT GLU (test code = 0530211551) 99 mg/dL 70-110 Lab Interpretation (test code = Normal 76546-4) [facility] 11[facility]07 Test Item Value Reference Range Interpretation Comments MAGNESIUM (test code = 6429051020) 2.5 mg/dL 1.7-2.4 H Lab Interpretation (test code = Abnormal 53756-3) [facility]. METABOLIC PANEL (64083)2021-06-01 11:48:06 Test Item Value Reference Range Interpretation Comments NA (test code = 139 mmol/L 135-145 6975545000) K (test code = 3.8 mmol/L 3.5-5.0 5500814778) CL (test code = 101 mmol/L 98-108 0372469867) CO2 TOTAL (test code = 30 mmol/L 23-31 9249067986) AGAP (test code = 2-16 9692554550) BUN (test code = 85 mg/dL 7-23 H 6139558413) GLUCOSE (test code = 80 mg/dL 70-110 6017509123) CREATININE (test code = 2.66 mg/dL 0.50-1.04 H 7596105230) TOTAL BILI (test code = 0.3 mg/dL 0.1-1.4 9064318459) CALCIUM (test code = 8.2 mg/dL 8.6-10.6 L 1529809987) T PROTEIN (test code = 5.4 g/dL 6.3-8.2 L 2694765555) ALBUMIN (test code = 2.8 g/dL 3.5-5.0 L 5770607596) ALK PHOS (test code = 95 U/L 34-122 9330469749) ALTv (test code = 15 U/L 5-35 1742-6) AST(SGOT) (test code = 15 U/L 13-40 2770057848) eGFR (test code = mL/min/1.73m2 9460696844) JONATHAN (test code = JONATHAN) Association of [...] tests). Lab Interpretation Abnormal (test code = 41335-9) [facility] GLUCOSE (AUTOMATED)2021-06-01 01:45:09 Test Item Value Reference Range Interpretation Comments POCT GLU (test code = 172 mg/dL 70-110 H Notifi ed Provider 6188235498) Lab Interpretation (test Abnormal code = 29040-6) [facility] GLUCOSE (AUTOMATED)2021-05-31 22:37:53 Test Item Value Reference Range Interpretation Comments POCT GLU (test code = 7140797761) 161 mg/dL 70-110 H Lab Interpretation (test code = Abnormal 31506-1) [facility] GLUCOSE (AUTOMATED)2021-05-31 17:41:51 Test Item Value Reference Range Interpretation Comments POCT GLU (test code = 4299232280) 184 mg/dL 70-110 H Lab Interpretation (test code = Abnormal 28476-2) [facility] GLUCOSE (AUTOMATED)2021-05-31 13:23:34 Test Item Value Reference Range Interpretation Comments POCT GLU (test code = 1949948309) 100 mg/dL 70-110 Lab Interpretation (test code = Normal 61525-2) [facility]. METABOLIC PANEL (59868)2021-05-31 09:34:08 Test Item Value Reference Range Interpretation Comments NA (test code = 136 mmol/L 135-145 0413511928) K (test code = 4.2 mmol/L 3.5-5.0 8238791691) CL (test code = 102 mmol/L 98-108 1157638590) CO2 TOTAL (test code = 29 mmol/L 23-31 4006857448) AGAP (test code = 2-16 7367820430) BUN (test code = 83 mg/dL 7-23 H 9248028950) GLUCOSE (test code = 76 mg/dL 70-110 5475232565) CREATININE (test code = 2.71 mg/dL 0.50-1.04 H 2257936276) TOTAL BILI (test code = 0.3 mg/dL 0.1-1.2 5293838046) CALCIUM (test code = 8.3 mg/dL 8.6-10.6 L 6660242604) T PROTEIN (test code = 5.4 g/dL 6.3-8.2 L 7382344617) ALBUMIN (test code = 2.8 g/dL 3.5-5.0 L 4079439536) ALK PHOS (test code = 97 U/L 34-122 0627855085) ALTv (test code = 15 U/L 5-35 1742-6) AST(SGOT) (test code = 18 U/L 13-40 0801220726) eGFR (test code = mL/min/1.73m2 5672506692) JONATHAN (test code = JONATHAN) Association of [...] tests). Lab Interpretation Abnormal (test code = 61928-3) [facility] 09:34:08 Test Item Value Reference Range Interpretation Comments MAGNESIUM (test code = 1980335006) 2.4 mg/dL 1.7-2.4 Lab Interpretation (test code = Normal 60845-1) [facility]2021-[facility]31 02:02:05 Test Item Value Reference Range Interpretation Comments POCT GLU (test code = 160 mg/dL 70-110 H Notifi ed Provider 4314439332) Lab Interpretation (test Abnormal code = 36267-9) [facility] GLUCOSE (AUTOMATED)2021-05-30 22:21:35 Test Item Value Reference Range Interpretation Comments POCT GLU (test code = 9298866807) 205 mg/dL 70-110 H Lab Interpretation (test code = Abnormal 72075-4) [facility] [id number] 21:10:39 Test Item Value Reference Range Interpretation Comments Blood Culture Coagulase negative Organism identified Workup (test Staphylococcus by DNA code = 600-7) probeAdditiona l work-up perform ed only per reques t. Culture plate(s ) will be saved until this date: 021 Gram stain Isolated from This is an alina ended (test code = anaerobic bottle report. The se results 664-3) Gram positive cocci have bee n appended to a previously preliminary benji ified report. [facility] GLUCOSE (AUTOMATED)2021-05-30 17:04:06 Test Item Value Reference Range Interpretation Comments POCT GLU (test code = 0879117160) 166 mg/dL 70-110 H Lab Interpretation (test code = Abnormal 86201-6) [facility] GLUCOSE (AUTOMATED)2021-05-30 13:18:06 Test Item Value Reference Range Interpretation Comments POCT GLU (test code = 5284654564) 101 mg/dL 70-110 Lab Interpretation (test code = Normal 77507-2) [facility] (76242)2021-05-30 11:20:09 Test Item Value Reference Range Interpretation Comments NA (test code = 139 mmol/L 135-145 5435781713) K (test code = 4.3 mmol/L 3.5-5.0 5655354677) CL (test code = 102 mmol/L 98-108 0221061358) CO2 TOTAL (test code = 29 mmol/L 23-31 6833250715) AGAP (test code = 2-16 5513422328) BUN (test code = 75 mg/dL 7-23 H 3534532673) GLUCOSE (test code = 91 mg/dL 70-110 8966833496) CREATININE (test code = 2.67 mg/dL 0.50-1.04 H 5699434990) TOTAL BILI (test code = 0.4 mg/dL 0.1-1.6 6823772328) CALCIUM (test code = 8.4 mg/dL 8.6-10.6 L 3842319878) T PROTEIN (test code = 5.4 g/dL 6.3-8.2 L 3672613594) ALBUMIN (test code = 2.8 g/dL 3.5-5.0 L 1776510077) ALK PHOS (test code = 96 U/L 34-122 9546297054) ALTv (test code = 15 U/L 5-35 1742-6) AST(SGOT) (test code = 18 U/L 13-40 4030476647) eGFR (test code = mL/min/1.73m2 4973362712) JONATHAN (test code = JONATHAN) Association of [...] tests). Lab Interpretation Abnormal (test code = 37138-7) [facility] 11:20:09 Test Item Value Reference Range Interpretation Comments MAGNESIUM (test code = 2211655523) 2.2 mg/dL 1.7-2.4 Lab Interpretation (test code = Normal 32073-3) [facility] [id number] 11:01:18 Test Item Value Reference Range Interpretation Comments Blood Culture-Aerobic No organisms No growth Previo us (test code = 19508-6) isolated prelim inary verified result was Culture [...] Culture-Anaerobic isolated preliminar y (test code = 80647-7) verifi ed result was Culture In Progress [...] CDT Lab Interpretation Normal (test code = 32978-6) [facility] GLUCOSE (AUTOMATED)2021-05-30 01:59:35 Test Item Value Reference Range Interpretation Comments POCT GLU (test code = 2379002397) 142 mg/dL 70-110 H Lab Interpretation (test code = Abnormal 20495-7) [facility] GLUCOSE (AUTOMATED)2021-05-29 21:12:32 Test Item Value Reference Range Interpretation Comments POCT GLU (test code = 0166601496) 167 mg/dL 70-110 H Lab Interpretation (test code = Abnormal 49936-0) [facility] GLUCOSE (AUTOMATED)2021-05-29 17:17:54 Test Item Value Reference Range Interpretation Comments POCT GLU (test code = 5612419363) 220 mg/dL 70-110 H Lab Interpretation (test code = Abnormal 56419-6) [facility]2021-05-29 12:58:49 Test Item Value Reference Range Interpretation Comments POCT GLU (test code = 4674423450) 93 mg/dL 70-110 Lab Interpretation (test code = Normal 17972-9) [facility] METABOLIC PANEL (NA, K, CL, CO2, GLUCOSE, BUN, CREATININE, CA)2021-05-29 10:45:02 Test Item Value Reference Range Interpretation Comments NA (test code = 140 mmol/L 135-145 5686748578) K (test code = 4.3 mmol/L 3.5-5.0 Slight 2322592047) hemolysis CL (test code = 103 mmol/L 98-108 2624580599) CO2 TOTAL (test code 32 mmol/L 23-31 H = 8558921224) AGAP (test code = 2-16 9536535644) BUN (test code = 71 mg/dL 7-23 H Slight 4643640499) hemolysis GLUCOSE (test code = 60 mg/dL 70-110 L 1907571596) CREATININE (test code 2.17 mg/dL 0.50-1.04 H = 2381407825) CALCIUM (test code = 8.8 mg/dL 8.6-10.6 4414624575) eGFR (test code = mL/min/1.73m2 6720375148) JONATHAN (test code = JONATHAN) Association of [...] tests). Lab Interpretation Abnormal (test code = 76763-0) [facility] GLUCOSE (AUTOMATED)2021-05-29 03:09:46 Test Item Value Reference Range Interpretation Comments POCT GLU (test code = 9481533940) 158 mg/dL 70-110 H Lab Interpretation (test code = Abnormal 76055-6) [facility] GLUCOSE (AUTOMATED)2021-05-28 22:17:36 Test Item Value Reference Range Interpretation Comments POCT GLU (test code = 6713247089) 166 mg/dL 70-110 H Lab Interpretation (test code = Abnormal 21687-6) [facility] GLUCOSE (AUTOMATED)2021-05-28 17:41:02 Test Item Value Reference Range Interpretation Comments POCT GLU (test code = 2591167203) 205 mg/dL 70-110 H Lab Interpretation (test code = Abnormal 03878-8) [facility] METABOLIC PANEL (NA, K, CL, CO2, GLUCOSE, BUN, CREATININE, CA)2021-05-28 15:57:39 Test Item Value Reference Range Interpretation Comments NA (test code = 140 mmol/L 135-145 3751395128) K (test code = 4.4 mmol/L 3.5-5.0 5096819074) CL (test code = 104 mmol/L 98-108 4913735967) CO2 TOTAL (test code = 30 mmol/L 23-31 4985939450) AGAP (test code = 2-16 5187300381) BUN (test code = 68 mg/dL 7-23 H 0556179349) GLUCOSE (test code = 87 mg/dL 70-110 4890404302) CREATININE (test code = 2.25 mg/dL 0.50-1.04 H 0183464965) CALCIUM (test code = 8.7 mg/dL 8.6-10.6 3439165755) eGFR (test code = mL/min/1.73m2 0261929743) JONATHAN (test code = JONATHAN) Association of [...] tests). Lab Interpretation Abnormal (test code = 87206-0) [facility] TH[facility] [id number] 15:10:52 Test Item Value Reference Range Interpretation Comments APTT Patient (test code See_Comment H [Au tomated message] = 3173-2) The system [employer] generated this result transmitted ref erence range: 26 - 36 Seconds. The reference range was not used to int erpret this result as normal/abnormal . Lab Interpretation (test Abnormal code = 12029-1) [facility] 14:02:53 Test Item Value Reference Range Interpretation Comments POCT GLU (test code = [id number]) 100 mg/dL 70-110 Lab Interpretation (test code = Normal 96910-6) [facility] WITH [id number] 12:03:46 Test Item Value Reference Range Interpretation [...] (test code = 54.3 fL 39.0-49.9 H 95153-8) RDW-CV (test code = 15.1 % 12.0-15.5 788-0) PLT (test code = See_Comment [Automated 777-3) message] The sy stem which generated this result transmitted reference range : 166 - 358 10*3/ ?L. The reference r comfort was not used to interpret this result as normal/abnormal . MPV (test code = 10.7 fL 9.5-12.9 02492-3) NRBC/100 WBC (test See_Comment [Automat ed code = [id number]) message] The system which generated this result transmitted reference range : 0.0 - 10.0 /100 WBCs. The refer ence range was not u sed to interpret th is result as normal/abnormal . NRBC x10^3 (test code <0.01 See_Comment [Auto mated = [id number]) message] The s ystem which generated this result transmitted reference range : 10*3/?L. The reference range was not used to interpret this result as normal/abnormal . GRAN MAT (NEUT) % 72.6 % (test code = 770-8) IMM GRAN % (test code 0.40 % = 0874782539) LYMPH % (test code = 10.6 % 736-9) MONO % (test code = 10.9 % 5905-5) EOS % (test code = 4.7 % 713-8) BASO % (test code = 0.8 % 706-2) GRAN MAT x10^3(ANC) 6.51 10*3/uL 1.88-7.09 (test code = 7686597542) IMM GRAN x10^3 (test 0.04 10*3/uL 0.00-0.06 code = 0530519656) LYMPH x10^3 (test code 0.95 10*3/uL 1.32-3.29 L = 731-0) MONO x10^3 (test code 0.98 10*3/uL 0.33-0.92 H = 742-7) EOS x10^3 (test code = 0.42 10*3/uL 0.03-0.39 H 711-2) BASO x10^3 (test code 0.07 10*3/uL 0.01-0.07 = 704-7) Lab Interpretation Abnormal (test code = 59202-4) [facility] [id number] 03:56:30 Test Item Value Reference Range Interpretation Comments APTT Patient (test code See_Comment H [Au tomated message] = 3173-2) The system Navmii generated this result transmitted ref erence range: 26 - 36 Seconds. The reference range was not used to int erpret this result as normal/abnormal . Lab Interpretation (test Abnormal code = 25999-2) [facility] GLUCOSE (AUTOMATED)2021-05-28 01:51:57 Test Item Value Reference Range Interpretation Comments POCT GLU (test code = 9673078665) 157 mg/dL 70-110 H Lab Interpretation (test code = Abnormal 75869-0) [facility] GLUCOSE (AUTOMATED)2021-05-27 22:45:24 Test Item Value Reference Range Interpretation Comments POCT GLU (test code = 0561221998) 115 mg/dL 70-110 H Lab Interpretation (test code = Abnormal 45998-3) [facility] [id number] 20:47:50 Test Item Value Reference Range Interpretation Comments APTT Patient (test code See_Comment H [Au tomated message] = 3173-2) The system Navm[employer] generated this result transmitted ref erence range: 26 - 36 Seconds. The reference range was not used to int erpret this result as normal/abnormal . Lab Interpretation (test Abnormal code = 04152-7) [facility] GLUCOSE (AUTOMATED)2021-05-27 16:59:28 Test Item Value Reference Range Interpretation Comments POCT GLU (test code = 8138262626) 155 mg/dL 70-110 H Lab Interpretation (test code = Abnormal 86504-4) [facility] [id number] 16:36:54 Test Item Value Reference Range Interpretation Comments Blood Culture-Aerobic Culture positive. No growth AA P revious (test code = 45762-9) See Blood Culture p reliminary Workup for verified result additional was Culture In information. Progress on 05/25/2021 at 09 01 CDTPrevious preliminary verified result was No growth a t 24 hours on 05/26/2021 at 06 01 CDT Blood Culture positive. No growth AA Previous Culture-Anaerobic See Blood Culture preli minary (test code = 27072-2) Workup for verifi ed result additional was Culture In information. Progress on 05/25/2021 at 09 01 CDTPrevious preliminary verified result was No growth a t 24 hours on 05/26/2021 at 10 34 CDT Lab Interpretation Abnormal (test code = 53463-8) [facility] (NA, K, CL, CO2, GLUCOSE, BUN, CREATININE, CA)2021-05-27 16:18:19 Test Item Value Reference Range Interpretation Comments NA (test code = 139 mmol/L 135-145 3376121252) K (test code = 4.9 mmol/L 3.5-5.0 8265250083) CL (test code = 106 mmol/L 98-108 2189861955) CO2 TOTAL (test code = 26 mmol/L 23-31 0391398463) AGAP (test code = 2-16 9051534587) BUN (test code = 65 mg/dL 7-23 H 8476469655) GLUCOSE (test code = 87 mg/dL 70-110 4308327708) CREATININE (test code = 2.38 mg/dL 0.50-1.04 H 8081776656) CALCIUM (test code = 8.5 mg/dL 8.6-10.6 L 7843215784) eGFR (test code = mL/min/1.73m2 8925212482) JONATHAN (test code = JONATHAN) Association of [...] tests). Lab Interpretation Abnormal (test code = 67906-7) [facility] Test Item Value Reference Range Interpretation Comments MAGNESIUM (test code = 7821447414) 2.4 mg/dL 1.7-2.4 Lab Interpretation (test code = Normal 52261-8) [facility] GLUCOSE (AUTOMATED)2021-05-27 12:59:11 Test Item Value Reference Range Interpretation Comments POCT GLU (test code = 8523034227) 95 mg/dL 70-110 Lab Interpretation (test code = Normal 90265-8) [facility] [id number] 11:11:54 Test Item Value Reference Range Interpretation Comments APTT Patient (test code See_Comment H [Au tomated message] = 3173-2) The system Navmii generated this result transmitted ref erence range: 26 - 36 Seconds. The reference range was not used to int erpret this result as normal/abnormal . Lab Interpretation (test Abnormal code = 06805-2) [facility] PARTIAL THRMPLAS [id number] 02:55:23 Test Item Value Reference Range Interpretation Comments APTT Patient (test code See_Comment H [Au tomated message] = 3173-2) The system Navmii generated this result transmitted ref erence range: 26 - 36 Seconds. The reference range was not used to int erpret this result as normal/abnormal . Lab Interpretation (test Abnormal code = 59592-5) [facility] GLUCOSE (AUTOMATED)2021-05-27 00:50:49 Test Item Value Reference Range Interpretation Comments POCT GLU (test code = 9897349942) 150 mg/dL 70-110 H Lab Interpretation (test code = Abnormal 13180-9) [facility] PATHOGENS DNA [id number] 00:04:21 Test Item Value Reference Range Interpretation Comments Coagulase Negative Positive Negative, See A Staphylococcus (test Comment/Narrative code = 11100-7) JONATHAN (test code = JONATHAN) Coagulase negative [...] contact the Antimicrobial Stewardship Program with questions.Pager: ?[phone] Testing included eleven identification and three resistance marker targets. Lab Interpretation Abnormal (test code = 39033-2) [facility] GLUCOSE (AUTOMATED)2021-05-26 21:55:30 Test Item Value Reference Range Interpretation Comments POCT GLU (test code = 4935501849) 96 mg/dL 70-110 Lab Interpretation (test code = Normal 12511-3) [facility] 18:41:59 Test Item Value Reference Range Interpretation Comments APTT Patient (test code = See_Comment [ Automated message] 3173-2) The system Navmii generated this result transmitted ref erence range: 26 - 36 Seconds. The re ference range was not u sed to interpret this result as normal/abnor mal. Lab Interpretation (test Normal code = 98996-4) [facility]GLOBIN (A1C)2021-05-26 18:17:51 Test Item Value Reference Range Interpretation Comments HGB A1C (test code = 7.9 % 4.0-5.7 H 4548-4) JONATHAN (test code = JONATHAN) Reference RangesNormal: <5.7%Prediabetes: 5.7 - 6.4%Diabetes: > 6.5% Lab Interpretation (test Abnormal code = 94957-2) [facility] GLUCOSE (AUTOMATED)2021-05-26 16:44:33 Test Item Value Reference Range Interpretation Comments POCT GLU (test code = 87 mg/dL 70-110 Notifi ed Provider [id number]) Lab Interpretation (test Normal code = 22954-2) [facility] GLUCOSE (AUTOMATED)2021-05-26 13:17:53 Test Item Value Reference Range Interpretation Comments POCT GLU (test code = 2122178580) 84 mg/dL 70-110 Lab Interpretation (test code = Normal 20570-8) [facility] METABOLIC PANEL (NA, K, CL, CO2, GLUCOSE, BUN, CREATININE, CA)2021-05-26 11:25:44 Test Item Value Reference Range Interpretation Comments NA (test code = 141 mmol/L 135-145 3481731058) K (test code = 5.2 mmol/L 3.5-5.0 H 1121615222) CL (test code = 109 mmol/L 98-108 H 1282730185) CO2 TOTAL (test code = 31 mmol/L 23-31 3202352798) AGAP (test code = 2-16 L 9289254111) BUN (test code = 68 mg/dL 7-23 H 9165911812) GLUCOSE (test code = 69 mg/dL 70-110 L 7508884538) CREATININE (test code = 2.20 mg/dL 0.50-1.04 H 2505576321) CALCIUM (test code = 8.8 mg/dL 8.6-10.6 4532190525) eGFR (test code = mL/min/1.73m2 8771606827) JONATHAN (test code = JONATHAN) Association of [...] tests). Lab Interpretation Abnormal (test code = 87486-2) [facility] WITH [id number] 11:15:42 Test Item Value Reference Range Interpretation [...] (test code = 56.2 fL 39.0-49.9 H 14861-3) RDW-CV (test code = 15.1 % 12.0-15.5 788-0) PLT (test code = See_Comment [Automated 777-3) message] The sy stem which generated this result transmitted reference range : 166 - 358 10*3/ ?L. The reference r comfort was not used to interpret this result as normal/abnormal . MPV (test code = 10.5 fL 9.5-12.9 62443-7) NRBC/100 WBC (test See_Comment [Automat ed code = 8881941196) message] The system which generated this result transmitted reference range : 0.0 - 10.0 /100 WBCs. The refer ence range was not u sed to interpret th is result as normal/abnormal . NRBC x10^3 (test code <0.01 See_Comment [Auto mated = 1175123561) message] The s ystem which generated this result transmitted reference range : 10*3/?L. The reference range was not used to interpret this result as normal/abnormal . GRAN MAT (NEUT) % 76.1 % (test code = 770-8) IMM GRAN % (test code 0.40 % = 2114538293) LYMPH % (test code = 8.1 % 736-9) MONO % (test code = 11.4 % 5905-5) EOS % (test code = 3.4 % 713-8) BASO % (test code = 0.6 % 706-2) GRAN MAT x10^3(ANC) 7.65 10*3/uL 1.88-7.09 H (test code = 4068817457) IMM GRAN x10^3 (test 0.04 10*3/uL 0.00-0.06 code = 0845357884) LYMPH x10^3 (test code 0.81 10*3/uL 1.32-3.29 L = 731-0) MONO x10^3 (test code 1.14 10*3/uL 0.33-0.92 H = 742-7) EOS x10^3 (test code = 0.34 10*3/uL 0.03-0.39 711-2) BASO x10^3 (test code 0.06 10*3/uL 0.01-0.07 = 704-7) Lab Interpretation Abnormal (test code = 98092-0) [facility] GLUCOSE (AUTOMATED)2021-05-26 02:01:52 Test Item Value Reference Range Interpretation Comments POCT GLU (test code = 6260236171) 116 mg/dL 70-110 H Lab Interpretation (test code = Abnormal 97998-8) [facility] GLUCOSE (AUTOMATED)2021-05-25 21:44:21 Test Item Value Reference Range Interpretation Comments POCT GLU (test code = 138 mg/dL 70-110 H Notifi ed Provider [id number]) Lab Interpretation (test Abnormal code = 06362-3) [facility] [id number] 11:26:41 Test Item Value Reference Interpretation Comments Range TROPONIN I (test 0.009 ng/mL See_Comment [Automated code = 6251275495) message] The system which generated this result [...] biotin. Lab Interpretation Normal (test code = 49001-2) [id number] 11:23:38 Test Item Value Reference Range Interpretation Comments NT-proBNP (test code 4990 pg/mL See_Comment H [Autom ated = 5319394881) message] The system which generated this result transmitted reference range : <=125. The reference range was not used to interpret this result as normal/abnormal . JONATHAN (test code = JONATHAN) Biotin has been reported to cause a negative bias, interpret results relative to patient's use of biotin. Lab Interpretation Abnormal (test code = 97326-5) [facility]OL[facility] (79972)2021-05-25 11:14:39 Test Item Value Reference Range Interpretation Comments NA (test code = 143 mmol/L 135-145 5803127072) K (test code = 4.9 mmol/L 3.5-5.0 8925650746) CL (test code = 108 mmol/L 98-108 0066363764) CO2 TOTAL (test code = 28 mmol/L 23-31 3369034860) AGAP (test code = 2-16 4237266162) BUN (test code = 58 mg/dL 7-23 H 9281652972) GLUCOSE (test code = 307 mg/dL 70-110 H 9703122901) CREATININE (test code = 1.72 mg/dL 0.50-1.04 H 5343471686) TOTAL BILI (test code = 0.5 mg/dL 0.1-1.6 6914249785) CALCIUM (test code = 9.3 mg/dL 8.6-10.6 4789493283) T PROTEIN (test code = 7.3 g/dL 6.3-8.2 5133787441) ALBUMIN (test code = 3.7 g/dL 3.5-5.0 8332177147) ALK PHOS (test code = 145 U/L 34-122 H 7335935284) ALTv (test code = 19 U/L 5-35 1742-6) AST(SGOT) (test code = 21 U/L 13-40 6224218069) eGFR (test code = mL/min/1.73m2 5920240768) JONATHAN (test code = JONATHAN) Association of [...] tests). Lab Interpretation Abnormal (test code = 49509-4) [facility] WITH [id number] 11:06:20 Test Item Value Reference Range Interpretation [...] (test code = 55.3 fL 39.0-49.9 H 70727-4) RDW-CV (test code = 15.0 % 12.0-15.5 788-0) PLT (test code = See_Comment H [Automated 777-3) message] The system which generated this result transmit cathy reference range : 166 - 358 10*3/ ?L. The reference range was not u sed to interpret th is result as normal/abnormal . MPV (test code = 11.0 fL 9.5-12.9 49446-7) NRBC/100 WBC (test See_Comment [Automat ed code = 4679758383) message] The system which generated this result transmit cathy reference range : 0.0 - 10.0 /100 WBCs. The reference range was not used to interpret this result as normal/abnormal . NRBC x10^3 (test code <0.01 See_Comment [Auto mated = 7336750314) message] The system which generated this result transmit cathy reference range : 10*3/?L. The reference range was not used to interpret this result as normal/abnormal . GRAN MAT (NEUT) % 80.3 % (test code = 770-8) IMM GRAN % (test code 1.00 % = 7301087118) LYMPH % (test code = 5.8 % 736-9) MONO % (test code = 8.9 % 5905-5) EOS % (test code = 3.1 % 713-8) BASO % (test code = 0.9 % 706-2) GRAN MAT x10^3(ANC) 12.37 10*3/uL 1.88-7.09 H (test code = 1483806670) IMM GRAN x10^3 (test 0.15 10*3/uL 0.00-0.06 H code = 9997963216) LYMPH x10^3 (test code 0.90 10*3/uL 1.32-3.29 L = 731-0) MONO x10^3 (test code 1.38 10*3/uL 0.33-0.92 H = 742-7) EOS x10^3 (test code = 0.48 10*3/uL 0.03-0.39 H 711-2) BASO x10^3 (test code 0.14 10*3/uL 0.01-0.07 H = 704-7) Lab Interpretation Abnormal (test code = 75782-1) [facility] 17:11:00 Test Item Value Reference Range Interpretation Comments GLUBED (test code = GLUBED) 175 MG/DL 70-105 H COVID 19 Asymptomatic IH [id number] 13:04:00 Test Item Value Reference Range Interpretation [...] beconsidered in the context of a pa vanda's recent exposure s,history and the presenc e of clinical signs and symptomsconsist ent with COVID-19. [id number] 11:40:00 Test Item Value Reference Range Interpretation Comments GLUBED (test code = GLUBED) 170 MG/DL 70-105 H [id number] 08:13:00 Test Item Value Reference Range Interpretation Comments GLUBED (test code = GLUBED) 90 MG/DL 70-105 N COMPREHENSIVE METABOLIC [id number] 04:42:00 Test Item Value Reference Range Interpretation [...] ALKP) Reference Range Oct 2020 CBC W/AUTO [id number] 04:29:00 Test Item Value Reference Range Interpretation [...] = BA#) 0.04 x10 3/uL 0.0-0.20 N [id number] 20:58:00 Test Item Value Reference Range Interpretation Comments GLUBED (test code = GLUBED) 229 MG/DL 70-105 H [id number] 17:01:00 Test Item Value Reference Range Interpretation Comments GLUBED (test code = GLUBED) 180 MG/DL 70-105 H [id number] 11:46:00 Test Item Value Reference Range Interpretation Comments GLUBED (test code = GLUBED) 111 MG/DL 70-105 H CBC W/MANUAL [id number] 10:20:00 Test Item Value Reference Range Interpretation [...] HYPO) 1+ NONE SEEN A COMPREHENSIVE METABOLIC [id number] 09:18:00 Test Item Value Reference Range Interpretation [...] ALKP) Reference Range Oct 2020 CBC W/MANUAL [id number] 09:13:00 Test Item Value Reference Range Interpretation [...] code = LYMPH) % 20-40 COMPREHENSIVE METABOLIC [id number] 09:12:00 Test Item Value Reference Range Interpretation [...] PHOSPHATASE U/L 46-116 (test code = ALKP) [id number] 08:13:00 Test Item Value Reference Range Interpretation Comments GLUBED (test code = GLUBED) 102 MG/DL 70-105 N [id number] 20:53:00 Test Item Value Reference Range Interpretation Comments GLUBED (test code = GLUBED) 359 MG/DL 70-105 HH [id number] 17:47:00 Test Item Value Reference Range Interpretation Comments GLUBED (test code = GLUBED) 276 MG/DL 70-105 H [id number] 12:17:00 Test Item Value Reference Range Interpretation Comments GLUBED (test code = GLUBED) 150 MG/DL 70-105 H [id number] 07:37:00 Test Item Value Reference Range Interpretation Comments GLUBED (test code = GLUBED) 85 MG/DL 70-105 N BASIC METABOLIC [id number] 04:08:00 Test Item Value Reference Range Interpretation [...] note: New CA) Reference Range Oct 2020 [id number] 04:08:00 Test Item Value Reference Range Interpretation Comments PHOSPHOROUS (test code 3.6 mg/dL 2.4-5.1 N Pleas e note: New = PHOS) Reference Range Oct 2020 [id number] 04:08:00 Test Item Value Reference Range Interpretation Comments MAGNESIUM (test code = 3.0 mg/dL 1.6-2.6 H Pleas e note: New MAG) Reference Range Oct 2020 [id number] 04:08:00 Test Item Value Reference Range Interpretation Comments TROPONIN-I (test 18.7 pg/mL 27.36-66.23 L Please note : Units and code = TROPI) Reference Rang e have changedFeb 3, 2 021 CBC W/AUTO [id number] 03:09:00 Test Item Value Reference Range Interpretation [...] = BA#) 0.06 x10 3/uL 0.0-0.20 N [id number] 21:21:00 Test Item Value Reference Range Interpretation Comments GLUBED (test code = GLUBED) 201 MG/DL 70-105 H [id number] 17:18:00 Test Item Value Reference Range Interpretation Comments GLUBED (test code = GLUBED) 170 MG/DL 70-105 H [id number] 11:32:00 Test Item Value Reference Range Interpretation Comments GLUBED (test code = GLUBED) 175 MG/DL 70-105 H [id number] 07:34:00 Test Item Value Reference Range Interpretation Comments GLUBED (test code = GLUBED) 123 MG/DL 70-105 H BASIC METABOLIC [id number] 02:20:00 Test Item Value Reference Range Interpretation [...] note: New CA) Reference Range Oct 2020 [id number] 02:20:00 Test Item Value Reference Range Interpretation Comments MAGNESIUM (test code = 3.0 mg/dL 1.6-2.6 H Pleas e note: New MAG) Reference Range Oct 2020 CBC W/AUTO [id number] 02:09:00 Test Item Value Reference Range Interpretation [...] = BA#) 0.05 x10 3/uL 0.0-0.20 N [id number] 23:51:00 Test Item Value Reference Range Interpretation Comments GLUBED (test code = GLUBED) 206 MG/DL 70-105 H BASIC METABOLIC [id number] 20:41:00 Test Item Value Reference Range Interpretation [...] CA) Reference Range Oct 2020 BASIC METABOLIC [id number] 20:37:00 Test Item Value Reference Range Interpretation [...] CA) Reference Range Oct 2020 BASIC METABOLIC [id number] 20:31:00 Test Item Value Reference Range Interpretation [...] code = mg/dL 8.7-10.4 CA) BASIC METABOLIC [id number] 20:26:00 Test Item Value Reference Range Interpretation [...] code = mg/dL 8.7-10.4 CA) BASIC METABOLIC [id number] 20:25:00 Test Item Value Reference Range Interpretation [...] code = mg/dL 8.7-10.4 CA) BASIC METABOLIC [id number] 17:11:00 Test Item Value Reference Range Interpretation [...] CA) Reference Range Oct 2020 BASIC METABOLIC [id number] 17:10:00 Test Item Value Reference Range Interpretation [...] CA) Reference Range Oct 2020 BASIC METABOLIC [id number] 17:06:00 Test Item Value Reference Range Interpretation [...] code = mg/dL 8.7-10.4 CA) BASIC METABOLIC [id number] 17:04:00 Test Item Value Reference Range Interpretation [...] CALCIUM (test code = mg/dL 8.7-10.4 CA) [id number] 16:26:00 Test Item Value Reference Range Interpretation Comments GLUBED (test code = GLUBED) 210 MG/DL 70-105 H [id number] 12:26:00 Test Item Value Reference Range Interpretation Comments GLUBED (test code = GLUBED) 154 MG/DL 70-105 H BASIC METABOLIC [id number] 06:47:00 Test Item Value Reference Range Interpretation [...] note: New CA) Reference Range Oct 2020 [id number] 06:47:00 Test Item Value Reference Range Interpretation Comments PHOSPHOROUS (test code 3.7 mg/dL 2.4-5.1 N Pleas e note: New = PHOS) Reference Range Oct 2020 [id number] 06:47:00 Test Item Value Reference Range Interpretation Comments MAGNESIUM (test code = 3.3 mg/dL 1.6-2.6 H Pleas e note: New MAG) Reference Range Oct 2020 CBC W/AUTO [id number] 06:20:00 Test Item Value Reference Range Interpretation [...] = BA#) 0.05 x10 3/uL 0.0-0.20 N [id number] 21:57:00 Test Item Value Reference Range Interpretation Comments GLUBED (test code = GLUBED) 105 MG/DL 70-105 N [id number] 17:33:00 Test Item Value Reference Range Interpretation Comments GLUBED (test code = GLUBED) 142 MG/DL 70-105 H [id number] 12:17:00 Test Item Value Reference Range Interpretation Comments GLUBED (test code = GLUBED) 197 MG/DL 70-105 H [id number] 07:05:00 Test Item Value Reference Range Interpretation Comments GLUBED (test code = GLUBED) 109 MG/DL 70-105 H - XR CHEST 1 [id number] 04:51:00 [facility] 1950 Sex: FPatient Name: KATELIN MUNSON Unit No: [id number] EXAMS: CPT CODE: [id number] XR CHEST 1 V 60214 EXAMINATION: - XR CHEST 1 V LOCATION: H61 INDICATION/CLINICAL HISTORY: s/p PPM COMPARISON: Chest x-ray 05/17/2021. TECHNIQUE: AP view of the chest. FINDINGS: Lung bases are not included in the akmfn-vb-dnxe. Right PICC is stable in position. Left-sided pacemaker is again seen. The cardiac silhouette is enlarged. There is unchanged pulmonary vascular congestion and mild interstitial edema. There is no pneumothorax. IMPRESSION: 1. Cardiomegaly, pulmonary vascular congestion and mild interstitial edema. 2. Lung bases are not included in the vbwvl-kb-enqu for evaluation. 3. No significant change compared to yesterday exam. at 0451 Reportedand signed by: Anushka Giron M.D. CC: Gerhard Zavala MD; Florentino Jenkins MD Technologist: Margaret Gaffney Fluoro Time: DAP (Gy m2): Air Kerma (mGy): Trscr Dt/Tm: 05/18/2021 (450) by:[email or web address] Printed Date/Time: 05/18/2021 (454) Name: KATELIN MUNSON [facility] Phys: BENOIT.Lisseth - Gerhard Zavala [address] : 1950 Age: 70 Sex: [place] [address] Loc: P.0216 1 Exam Date: 05/18/2021 Status: ADM IN PH: FAX: PAGE 1 Signed ReportBASIC METABOLIC [id number] 03:49:00 Test Item Value Reference Range Interpretation [...] note: New CA) Reference Range Oct 2020 [id number] 03:49:00 Test Item Value Reference Range Interpretation Comments PHOSPHOROUS (test code 3.9 mg/dL 2.4-5.1 N Pleas e note: New = PHOS) Reference Range Oct 2020 [id number] 03:49:00 Test Item Value Reference Range Interpretation Comments MAGNESIUM (test code = 3.1 mg/dL 1.6-2.6 H Pleas e note: New MAG) Reference Range Oct 2020 [id number] 21:46:00 Test Item Value Reference Range Interpretation Comments GLUBED (test code = GLUBED) 268 MG/DL 70-105 H B-TYPE NATRIURETIC [id number] 20:13:00 Test Item Value Reference Range Interpretation Comments B-TYPE NATRIURETIC PEPTIDE (test 96 pg/mL <100 N code = BNP) [id number] 17:41:00 Test Item Value Reference Range Interpretation Comments GLUBED (test code = GLUBED) 281 MG/DL 70-105 H - XR CHEST 1 [id number] 15:53:00 [facility] : 1950 Sex: FPatient Name: KATELIN MUNSON Unit No: [id number] EXAMS: CPT CODE: [id number] XR CHEST 1 V 15875 Location: A1 EXAM: XR CHEST 1 VIEW INDICATION: evaluate pulmonary edema COMPARISON: Chest radiograph dated 05/17/2021 TECHNIQUE: AP Chest FINDINGS: Lines, tubes and hardware: There is a left-sided pacemaker in place; transvenous leads are obscured secondary to technique. Right PICC tip is partially o bscured, but likely overlies the SVC. Lungs and pleura: There is prominence of the pulmonary vasculature. There is similar to slightly improved appearance of predominantly bilateral perihilar and lowerlobe interstitial opacities. Evaluation for pleural effusion is limited given technique; given this,no definite pleural effusion. No appreciable pneumothorax. Heart [...] Trscr Dt/Tm: 05/17/2021 (1553) by:[email or web address] Printed Date/Time: 05/17/2021 (1556) Name: DANNYKATELIN [facility] Phys: Tru Larsen MD [address] : 1950 Age: 70 Sex: F [place], [place] [id number] Loc: P.0216 1 Exam Date: 05/17/2021 Status: ADM IN PH: FAX: PAGE 1 Signed [id number] 11:08:00 Test Item Value Reference Range Interpretation Comments GLUBED (test code = GLUBED) 205 MG/DL 70-105 H [id number] 06:27:00 Test Item Value Reference Range Interpretation Comments GLUBED (test code = GLUBED) 136 MG/DL 70-105 H - XR CHEST 1 [id number] 04:26:00 [facility] : 1950 Sex: FPatient Name: KATELIN MUNSON Unit No: [id number] EXAMS: CPT CODE: [id number] XR CHEST 1 V 74745 EXAMINATION: - XR CHEST 1 V LOCATION: [...] m2): Air Kerma (mGy): Trscr Dt/Tm: 05/17/2021 (042) by:[email or web address] Printed Date/Time: 05/17/2021 (042) Name: ROSALEE MUNSON [facility] Phys: Gerhard Madison [address] : 1950 Age: 70 Sex: [place] [address] Loc: P.0216 1 Exam Date: 05/17/2021 Status: ADM IN P H: FAX: PAGE 1 Signed [id number] 22:35:00 Test Item Value Reference Range Interpretation Comments GLUBED (test code = GLUBED) 211 MG/DL 70-105 H [id number] 17:20:00 Test Item Value Reference Range Interpretation Comments GLUBED (test code = GLUBED) 216 MG/DL 70-105 H [id number] 11:28:00 Test Item Value Reference Range Interpretation Comments GLUBED (test code = GLUBED) 203 MG/DL 70-105 H [id number] 08:19:00 Test Item Value Reference Range Interpretation Comments GLUBED (test code = GLUBED) 105 MG/DL 70-105 N - XR CHEST 1 [id number] 07:42:00 [facility] : 1950 Sex: FPatient Name: KATELIN MUNSON Unit No: [id number] EXAMS: CPT CODE: [id number] XR CHEST 1 V 17375 Chest one view AP 05/16/2021 7:41 AM CLINICAL INDICATION: Pacemaker COMPARISON: 05/14/2021 LOCATION: W1 IMPRESSION: No pneumothorax is evident. Cardiomediastinal contours are stable. Pulmonary edema is improved and is now mild in degree. Support hardware is unchanged in position. at 0742 Reported and signed by: YOLANDA MALDONADO M.D. CC: Gerhard Zavala MD; Florentino Jenkins MD Technologist: Margaret Samanta Gaffney Fluoro Time: DAP (Gym2): Air Kerma (mGy): Trscr Dt/Tm: 05/16/2021 (0742) by:[email or web address] Printed Date/Time: 05/16/2021 (07 45) Name: KATELIN MUNSON [facility] Phys: Lisseth - Gerhard Zavala [address]DOB: 1950 Age: 70 Sex: [place] [address] Loc: P.0216 1 Exam Date: 05/16/2021 Status: ADM IN PH: FAX: PAGE 1 Signed ReportBASIC METABOLIC [id number] 04:19:00 Test Item Value Reference Range Interpretation [...] note: New CA) Reference Range Oct 2020 [id number] 04:19:00 Test Item Value Reference Range Interpretation Comments PHOSPHOROUS (test code 4.7 mg/dL 2.4-5.1 N Pleas e note: New = PHOS) Reference Range Oct 2020 [id number] 04:19:00 Test Item Value Reference Range Interpretation Comments MAGNESIUM (test code = 2.7 mg/dL 1.6-2.6 H Pleas e note: New MAG) Reference Range Oct 2020 CBC W/AUTO [id number] 04:01:00 Test Item Value Reference Range Interpretation [...] = BA#) 0.08 x10 3/uL 0.0-0.20 N [id number] 20:24:00 Test Item Value Reference Range Interpretation Comments GLUBED (test code = GLUBED) 155 MG/DL 70-105 H [id number] 16:46:00 Test Item Value Reference Range Interpretation Comments GLUBED (test code = GLUBED) 181 MG/DL 70-105 H [id number] 08:08:00 Test Item Value Reference Range Interpretation Comments GLUBED (test code = GLUBED) 174 MG/DL 70-105 H BASIC METABOLIC [id number] 05:15:00 Test Item Value Reference Range Interpretation [...] CA) Reference Range Oct 2020 COMPREHENSIVE METABOLIC [id number] 05:15:00 Test Item Value Reference Range Interpretation [...] code = ALKP) Reference Range Oct 2020 [id number] 05:15:00 Test Item Value Reference Range Interpretation Comments PHOSPHOROUS (test code 4.6 mg/dL 2.4-5.1 N Pleas e note: New = PHOS) Reference Range Oct 2020 [id number] 05:15:00 Test Item Value Reference Range Interpretation Comments MAGNESIUM (test code = 2.5 mg/dL 1.6-2.6 N Pleas e note: New MAG) Reference Range Oct 2020 CBC W/AUTO [id number] 05:01:00 Test Item Value Reference Range Interpretation [...] = BA#) 0.05 x10 3/uL 0.0-0.20 N [id number] 21:01:00 Test Item Value Reference Range Interpretation Comments GLUBED (test code = GLUBED) 290 MG/DL 70-105 H [id number] 17:35:00 Test Item Value Reference Range Interpretation Comments GLUBED (test code = GLUBED) 202 MG/DL 70-105 H [id number] 11:54:00 Test Item Value Reference Range Interpretation Comments GLUBED (test code = GLUBED) 261 MG/DL 70-105 H Covid 19 InHouse [id number] 10:51:00 Test Item Value Reference Range Interpretation Comments Covid 19 Negative Negative A negative resu lt does not InHouse NTX preclude the SA RS-COV-2 (test code = viralinfection and should not be [id number]) used as the so le basis forpatient [...] performancechar acteristics were determined by Sara tate [facility]. Thi s test has notbeen [...] NoAge at collection: Y- XR CHEST 1 [id number] 08:06:00 [facility] : 1950 Sex: FPatient Name: KATELIN MUNSON Unit No: [id number] EXAMS: CPT CODE: [id number] XR CHEST 1 V 52685 CHEST, SINGLE VIEW DICTATION LOCATION A1 HISTORY: [...] signed by: Eddie Muniz Jr, MD CC: Delia POWERS; Florentino Jenkins MD Technologist: Margaret Gaffney Fluoro Time: DAP (Gy m2): Air Kerma (mGy): Trscr Dt/Tm: 05/14/2021 (805) by:Viky Printed Date/Time: 05/14/2021 (808) Name: KATELIN FARRELL [facility] Phys: Gerhard Madison [address] : 1950 Age: 70 Sex: [place] [address] Loc: P.0216 1 Exam Date: 05/14/2021 Status: ADM IN PH: FAX: PAGE 1 Signed [id number] 07:36:00 Test Item Value Reference Range Interpretation Comments GLUBED (test code = GLUBED) 146 MG/DL 70-105 H BASIC METABOLIC [id number] 04:27:00 Test Item Value Reference Range Interpretation [...] note: New CA) Reference Range Oct 2020 [id number] 04:27:00 Test Item Value Reference Range Interpretation Comments PHOSPHOROUS (test code 4.6 mg/dL 2.4-5.1 N Pleas e note: New = PHOS) Reference Range Oct 2020 [id number] 04:27:00 Test Item Value Reference Range Interpretation Comments MAGNESIUM (test code = 2.4 mg/dL 1.6-2.6 N Pleas e note: New MAG) Reference Range Oct 2020 CBC W/AUTO [id number] 04:02:00 Test Item Value Reference Range Interpretation [...] = BA#) 0.07 x10 3/uL 0.0-0.20 N [id number] 20:38:00 Test Item Value Reference Range Interpretation Comments GLUBED (test code = GLUBED) 314 MG/DL 70-105 HH [id number] 17:22:00 Test Item Value Reference Range Interpretation Comments GLUBED (test code = GLUBED) 260 MG/DL 70-105 H [id number] 13:18:00 Test Item Value Reference Range Interpretation Comments GLUBED (test code = GLUBED) 264 MG/DL 70-105 H [id number] 08:50:00 Test Item Value Reference Range Interpretation Comments GLUBED (test code = GLUBED) 196 MG/DL 70-105 H - XR CHEST 1 [id number] 08:05:00 [facility] : 1950 Sex: FPatient Name: KATELIN MUNSON Unit No: [id number] EXAMS: CPT CODE: [id number] XR CHEST 1 V 08690 Portable AP chest, 1 view Location Code: B2 CLINICAL HISTORY: Evaluation of infiltrates, ET tube, and lines COMPARISON: 05/12/2021 COMMENT: Mild central congestion remains. There is no consolidation oreffusion. The cardiomediastinal silhouette is stable. Left chest pacer again noted. There is no acute osseous abnormality. Right upper extremity PICC line is stable. IMPRESSION: No significant intervalchange. at 0805 Reported andsigned by: MANUEL NOVOA M.D. CC: Gerhard Zavala MD; Florentino Jenkins MD Technologist: Fab Campbell Fluoro Time: DAP (Gy m2): Air Kerma (mGy): Trscr Dt/Tm: 05/13/2021 (804) by:[email or web address] Printed Date/Time: 05/13/2021 (08) Name: KATELIN MUNSON [facility] Phys: Gerhard Madison [address] : 1950 Age: 70 Sex: [place] [address] Loc: P.0216 1 Exam Date: 05/13/2021 Status: [...] note: New CA) Reference Range Oct 2020 [id number] 06:30:00 Test Item Value Reference Range Interpretation Comments PHOSPHOROUS (test code 4.8 mg/dL 2.4-5.1 N Pleas e note: New = PHOS) Reference Range Oct 2020 [id number] 06:30:00 Test Item Value Reference Range Interpretation Comments MAGNESIUM (test code = 2.4 mg/dL 1.6-2.6 N Pleas e note: New MAG) Reference Range Oct 2020 CBC W/AUTO [id number] 06:27:00 Test Item Value Reference Range Interpretation [...] x10 3/uL 0.0-0.20 N COVID 19 INHOUSE [id number] 23:23:00 Test Item Value Reference Range Interpretation Comments COVID 19 INHOUSE NEGATIVE NEGATIVE Negative re sults, from AG (test code = patients wit h symptom onset [id number]) beyondfive days , should be treated as [...] omsconsistent with COVID-19. Spec Comments: FAMILY/VISITORS TESTED [id number] 21:03:00 Test Item Value Reference Range Interpretation Comments GLUBED (test code = GLUBED) 186 MG/DL 70-105 H [id number] 17:55:00 Test Item Value Reference Range Interpretation Comments GLUBED (test code = GLUBED) 231 MG/DL 70-105 H [id number] 17:55:00 Test Item Value Reference Range Interpretation Comments GLUBED (test code = GLUBED) 166 MG/DL 70-105 H BASIC METABOLIC [id number] 11:42:00 Test Item Value Reference Range Interpretation [...] note: New CA) Reference Range Oct 2020 [id number] 11:42:00 Test Item Value Reference Range Interpretation Comments PHOSPHOROUS (test code 4.0 mg/dL 2.4-5.1 N Pleas e note: New = PHOS) Reference Range Oct 2020 [id number] 11:42:00 Test Item Value Reference Range Interpretation Comments MAGNESIUM (test code = 2.2 mg/dL 1.6-2.6 N Pleas e note: New MAG) Reference Range Oct 2020 BASIC METABOLIC [id number] 11:26:00 Test Item Value Reference Range Interpretation [...] note: New CA) Reference Range Oct 2020 [id number] 11:26:00 Test Item Value Reference Range Interpretation Comments PHOSPHOROUS (test code = PHOS) mg/dL 2.4-5.1 [id number] 11:26:00 Test Item Value Reference Range Interpretation Comments MAGNESIUM (test code = MAG) mg/dL 1.6-2.6 BASIC METABOLIC [id number] 11:25:00 Test Item Value Reference Range Interpretation [...] CALCIUM (test code = mg/dL 8.7-10.4 CA) [id number] 11:25:00 Test Item Value Reference Range Interpretation Comments PHOSPHOROUS (test code = PHOS) mg/dL 2.4-5.1 [id number] 11:25:00 Test Item Value Reference Range Interpretation Comments MAGNESIUM (test code = MAG) mg/dL 1.6-2.6 CBC W/AUTO [id number] 11:09:00 Test Item Value Reference Range Interpretation [...] = BA#) 0.04 x10 3/uL 0.0-0.20 N [id number] 10:43:00 Test Item Value Reference Range Interpretation Comments GLUBED (test code = GLUBED) 289 MG/DL 70-105 H - XR CHEST 1 [id number] 08:20:00 [facility] : 1950 Sex: FPatient Name: KATELIN MUNSON Unit No: [id number] EXAMS: CPT CODE: [id number] XR CHEST 1 V 07463 Portable AP chest, 1 view Location Code: B2 CLINICAL HISTORY: Infiltrate, pneumonia COMPARISON: 05/11/2021 COMMENT: Mild central congestive changes remain. Patchy bibasilar airspace disease is stable. Cardiomegaly is unchanged. Right upper tree PICC line and left chest pacer again noted. There is no acute osseous abnormality. IMPRESSION: Persistent mild congestion and edema with patchy bibasilar airspace disease. at 0820 Reported and signed by: MANUEL NOVOA M.D. CC: Gerhard Zavala MD; Florentino Jenkins MD Technologist: Filiberto Barajas Time: DAP (Gy m2): Air Kerma (mGy): Trscr Dt/Tm: 05/12/2021 (0820) by:[email or web address] PrintedDate/Time: 05/12/2021 (1841) Name: KATELIN MUNSON [facility] Phys: BENOIT.Lisseth - Gerhard Zavala [address] : 1950 Age: 70 Sex: F [place] [address] Loc:P.0216 1 Exam Date: 05/12/2021 Status: ADM IN [...] note: New CA) Reference Range Oct 2020 [id number] 04:00:00 Test Item Value Reference Range Interpretation Comments PHOSPHOROUS (test code 4.5 mg/dL 2.4-5.1 N Pleas e note: New = PHOS) Reference Range Oct 2020 [id number] 04:00:00 Test Item Value Reference Range Interpretation Comments MAGNESIUM (test code = 2.3 mg/dL 1.6-2.6 N Pleas e note: New MAG) Reference Range Oct 2020 CBC W/AUTO [id number] 03:38:00 Test Item Value Reference Range Interpretation [...] = BA#) 0.04 x10 3/uL 0.0-0.20 N [id number] 19:56:00 Test Item Value Reference Range Interpretation Comments GLUBED (test code = GLUBED) 227 MG/DL 70-105 H [id number] 16:40:00 Test Item Value Reference Range Interpretation Comments GLUBED (test code = GLUBED) 223 MG/DL 70-105 H [id number] 10:39:00 Test Item Value Reference Range Interpretation Comments GLUBED (test code = GLUBED) 295 MG/DL 70-105 H - XR CHEST 1 [id number] 09:36:00 [facility] : 1950 Sex: FPatient Name: KATELIN MUNSON Unit No: [id number] EXAMS: CPT CODE: [id number] XR CHEST 1 V 12663 EXAM: Chest one view. Location: A1 HISTORY: [...] and signed by: JOAQUIN SHAW M.D. CC: Gerhadr Zavala MD; Florentino Jenkins MD Technologist: Lou Barajas Time: DAP (Gy m2): Air Kerma (mGy): Trscr Dt/Tm: 05/11/2021 (0936) by:Roberto Printed Date/Time: 05/11/2021 (0936) Name: KATELIN MUNSON [facility] Phys: Gerhard Madison [address] : 1950 Age: 70 Sex: [place] [address] Loc:P.0216 1 Exam Date: 05/11/2021 Status: ADM IN PH: FAX: PAGE 1 Signed [id number] 07:41:00 Test Item Value Reference Range Interpretation Comments GLUBED (test code = GLUBED) 184 MG/DL 70-105 H BASIC METABOLIC [id number] 04:51:00 Test Item Value Reference Range Interpretation [...] note: New CA) Reference Range Oct 2020 [id number] 04:51:00 Test Item Value Reference Range Interpretation Comments PHOSPHOROUS (test code 4.0 mg/dL 2.4-5.1 N Pleas e note: New = PHOS) Reference Range Oct 2020 [id number] 04:51:00 Test Item Value Reference Range Interpretation Comments MAGNESIUM (test code = 2.3 mg/dL 1.6-2.6 N Pleas e note: New MAG) Reference Range Oct 2020 CBC W/AUTO [id number] 04:40:00 Test Item Value Reference Range Interpretation [...] = BA#) 0.04 x10 3/uL 0.0-0.20 N [id number] 20:14:00 Test Item Value Reference Range Interpretation Comments GLUBED (test code = GLUBED) 219 MG/DL 70-105 H [id number] 16:56:00 Test Item Value Reference Range Interpretation Comments GLUBED (test code = GLUBED) 214 MG/DL 70-105 H [id number] 13:08:00 Test Item Value Reference Range Interpretation Comments GLUBED (test code = GLUBED) 219 MG/DL 70-105 H [id number] 10:08:00 Test Item Value Reference Range Interpretation Comments GLUBED (test code = GLUBED) 228 MG/DL 70-105 H - XR CHEST 1 [id number] 08:15:00 [facility] : 1950 Sex: FPatient Name: KATELIN MUNSON Unit No: [id number] EXAMS: CPT CODE: [id number] XR CHEST 1 V 81191 CLINICAL HISTORY: pulmonary edema. LOCATION: A1 FINDINGS: [...] RA CASTRO M.D. CC: Florentino Jenkins MD; Sergio Brand MD Technologist: Margaret Gaffney Fluoro Time: DAP(Gy m2): Air Kerma (mGy): Trscr Dt/Tm: 05/10/2021 (0815) by:[email or web address] Printed Date/Time: 05/10/2021 (0818) Name: KATELIN MUNSON [facility] Phys: Sergio Kang MD [address] : 1950 Age: 70 Sex: [place] [address] Loc: P.0216 1 Exam Date: 05/10/2021 Status: ADM IN PH: FAX: PAGE 1 Signed ReportBASIC METABOLIC [id number] 04:47:00 Test Item Value Reference Range Interpretation [...] note: New CA) Reference Range Oct 2020 [id number] 04:47:00 Test Item Value Reference Range Interpretation Comments PHOSPHOROUS (test code 3.4 mg/dL 2.4-5.1 N Pleas e note: New = PHOS) Reference Range Oct 2020 [id number] 04:47:00 Test Item Value Reference Range Interpretation Comments MAGNESIUM (test code = 2.1 mg/dL 1.6-2.6 N Pleas e note: New MAG) Reference Range Oct 2020 CBC W/AUTO [id number] 04:30:00 Test Item Value Reference Range Interpretation [...] 0.03 x10 3/uL 0.0-0.20 N BASIC METABOLIC [id number] 21:50:00 Test Item Value Reference Range Interpretation [...] note: New CA) Reference Range Oct 2020 [id number] 21:50:00 Test Item Value Reference Range Interpretation Comments PHOSPHOROUS (test code 3.3 mg/dL 2.4-5.1 N Pleas e note: New = PHOS) Reference Range Oct 2020 [id number] 21:50:00 Test Item Value Reference Range Interpretation Comments MAGNESIUM (test code = 2.1 mg/dL 1.6-2.6 N Pleas e note: New MAG) Reference Range Oct 2020 BASIC METABOLIC [id number] 21:48:00 Test Item Value Reference Range Interpretation [...] note: New CA) Reference Range Oct 2020 [id number] 21:48:00 Test Item Value Reference Range Interpretation Comments PHOSPHOROUS (test code = PHOS) mg/dL 2.4-5.1 [id number] 21:48:00 Test Item Value Reference Range Interpretation Comments MAGNESIUM (test code = MAG) mg/dL 1.6-2.6 BASIC METABOLIC [id number] 21:43:00 Test Item Value Reference Range Interpretation [...] CALCIUM (test code = mg/dL 8.7-10.4 CA) [id number] 21:43:00 Test Item Value Reference Range Interpretation Comments PHOSPHOROUS (test code = PHOS) mg/dL 2.4-5.1 [id number] 21:43:00 Test Item Value Reference Range Interpretation Comments MAGNESIUM (test code = MAG) mg/dL 1.6-2.6 BASIC METABOLIC [id number] 21:42:00 Test Item Value Reference Range Interpretation Comments SODIUM (test code = 140 mmol/L 136-145 N Please n ote: New NA) Reference Range Oct 2020 POTASSIUM (test code = mmol/L 3.5-5.1 K) CHLORIDE (test code = 106 mmol/L 98-107 N Please note: New CL) Reference Range Oct 2020 CARBON DIOXIDE (test mmol/L -31 code = CO2) GLUCOSE (test code = mg/dL 74-106 GLU) BLOOD UREA NITROGEN mg/dL 9-23 (test code = BUN) GLOMERULAR FILTRATION mL/min >60 RATE (test code = GFR) CREATININE (test code mg/dL 0.55-1.02 = CREAT) CALCIUM (test code = mg/dL 8.7-10.4 CA) [id number] 21:42:00 Test Item Value Reference Range Interpretation Comments PHOSPHOROUS (test code = PHOS) mg/dL 2.4-5.1 [id number] 21:42:00 Test Item Value Reference Range Interpretation Comments MAGNESIUM (test code = MAG) mg/dL 1.6-2.6 - XR CHEST 1 [id number] 20:34:00 [facility] : 1950 Sex: FPatient Name: KATELIN MUNSON Unit No: [id number] EXAMS: CPT CODE: [id number] XR CHEST 1 V 07899 Examination: One view chest x-ray Location code: H60 Comparison: 05/09/2021 Discussion: Clinical history is remarkable for PICC line placement. Right-sided PICC line is identified with its tip in the superior vena cava. Heart is slightly enlarged. Changes of pulmonary vascular congestion/interstitialedema essentially unchanged. Small pleural effusions are likely as well. Left subclavian pacemaker leads are identified with their tips in the right atrium and right ventricle respectively. Impression:1. Findings consistent with pulmonary vascular congestion/mild interstitial edema. 2. Small pleural e ffusions. at 2033 Reported and signed by: Miguel Spence M.D. CC: Florentino Jenkins MD; Misael Almaguer MD Technologist: Davina Barajas Time: DAP (Gy m2): Air Kerma (mGy): Trscr Dt/Tm: 05/09/2021 (2033) by:[email or web address] Printed Date/Time: 05/09/2021 (2049) Name: KATELIN MUNSON [facility] Phys: Misael Rabago [address] : 1950 Age: 70 Sex: [place] [address] Loc: P.0216 1 Exam Date: 05/09/2021 Status: ADM IN PH: FAX: PAGE 1 Signed [id number] 20:16:00 Test Item Value Reference Range Interpretation Comments GLUBED (test code = GLUBED) 276 MG/DL 70-105 H [id number] 15:55:00 Test Item Value Reference Range Interpretation Comments GLUBED (test code = GLUBED) 222 MG/DL 70-105 H Covid 19 InHouse [id number] 12:01:00 Test Item Value Reference Range Interpretation Comments Covid 19 Negative Negative A negative resu lt does not InHouse NTX preclude the SA RS-COV-2 (test code = viralinfection and should not be [id number]) used as the so le basis forpatient leigh gement decisions. Negative result s must becombined with clinical o bservations, patient history , andepidemiologi leonardo information. Viral levels in clinicalsamples below the detec tion limit of the assay could jose d tonegative results. This t est was performed using the Trusight SmartTM COVID-19 PCRassay. This test was developed and i ts performancechar acteristics were determined by Sara tate [facility]. Thi s test has notbeen [...] congregate care setting? No? NoAge at collection: [id number] 11:58:00 Test Item Value Reference Range Interpretation Comments GLUBED (test code = GLUBED) 255 MG/DL 70-105 H - XR CHEST 1 [id number] 09:12:00 [facility] : 1950 Sex: FPatient Name: KATELIN MUNSON Unit No: [id number] EXAMS: CPT CODE: [id number] XR CHEST 1 V 93453 CLINICAL HISTORY: SOB. LOCATION: A1 FINDINGS: Comparison [...] RA CASTRO M.D. CC: Florentino Jenkins MD; Sergio Brand MD Technologist: Taylor Barajas Time: DAP (Gy m2): Air Kerma (mGy): Trscr Dt/Tm: 05/09/2021 (0912) by:[email or web address] Printed Date/Time: 05/09/2021 (0915) Name: KATELIN MUNSON [facility] Phys: Sergio Kang MD[address] : 1950 Age: 70 Sex: F [place] [address] Loc: P.0216 1Exam Date: 05/09/2021 Status: ADM IN PH: FAX: PAGE 1 Signed Report- XR CHEST 1 [id number] 07:48:00 [facility] : 1950 Sex: FPatient Name: KATELIN MUNSON Unit No: [id number] EXAMS: CPT CODE: [id number] XR CHEST 1 V 80484 CHEST, SINGLE VIEW DICTATION LOCATION A1 HISTORY: Pacemaker placement. A single view of the chest a3:03 AM was compared to prior exam from [...] Gerhard Zavala MD; Florentino Jenkins MD Technologist: aMrgaret Gaffney Fluoro Time: DAP (Gy m2): Air Kerma (mGy): Trscr Dt/Tm: 05/09/2021 (0748) by:Viky Printed Date/Time: 05/09/2021 (0751) Name: KATELIN MUNSON [facility] Phys: Gerhard Madison [address] : 1950 Age: 70 Sex: [place] [address] Loc: P.0216 1 Exam Date: 05/09/2021 Status: ADM IN PH: FAX: PAGE 1 Signed [id number] 07:24:00 Test Item Value Reference Range Interpretation Comments GLUBED (test code = GLUBED) 213 MG/DL 70-105 H PROTHROMBIN [id number] 05:33:00 Test Item Value Reference Range Interpretation [...] 2.5-3.5recurren t systemic emboli sm. THROMBOPLASTIN TIME [id number] 05:33:00 Test Item Value Reference Interpretation Comments Range THROMBOPLASTIN TIME 21.2 SECONDS 23.8-34.8 L NO CLOT PARTIAL (test code DETECTEDI NTERPRETATIVE = PTT) DATA:Therapeuti c range: Unfractionated heparin:55 - 80 seconds Argatroban:1.5 to 3 times the baseline PT T HGBA1C - GLYCOSYLATED [id number] 05:31:00 Test Item Value Reference Range Interpretation Comments GLYCOSYLATED HEMOGLOBIN 7.7 % <5.7 H Diab etic >/= (HA1C) (test code = 6.5%Pred iabetes GLYHGB) 5.7-6.4%Normal < 5.7% COMPREHENSIVE METABOLIC [id number] 04:50:00 Test Item Value Reference Range Interpretation [...] CHOLESTEROL (test code 118 mg/dL <200 N Saud hirsch note: New [...] AVG 11.04~~~~~~~~~~ ~~~~~~~ ~~~~~~~~~~~~~~~ ~~~~~~~ ~~~~~~~~~~~~~~~ ~~~~~~N ational Cholest stefania Education (NCEP ) Guidelines:~~~~ ~~~~~~~ ~~~~~~~~~~~~~~~ ~~~~~~~ ~~~~~~~~~~~~~~~ ~~~~~~~ ~~~~~ HDL Cholesterol<4 0mg/dL: HDL Cholesterol (Major risk factor for CHD)>60mg/dL: H DL Cholesterol (Ne gative risk factor for CHD)40-59mg/dL: Borderline Risk LDL Cholesterol<1 00mg/dL : Desirable LDL -C pxuibqzrxucza32 0-159mg /dL: Borderline High Risk LDL-C bbltorymkatmu81 0-189mg /dL: High risk LDL-C concentration H DL-LDL Cholesterol is affected by a n umber of factors such as smoking, age an d sex.~~~~~~~~~~~ ~~~~~~~ ~~~~~~~~~~~~~~~ ~~~~~~~ ~~~~~~~~~~~~~~~ ~~~~~ [id number] 04:50:00 Test Item Value Reference Range Interpretation Comments PHOSPHOROUS (test code 3.9 mg/dL 2.4-5.1 N Saud hirsch note: New = PHOS) Reference Range Oct 2020 [id number] 04:50:00 Test Item Value Reference Range Interpretation Comments MAGNESIUM (test code = 2.5 mg/dL 1.6-2.6 N Pleas e note: New MAG) Reference Range Oct 2020 THYROID STIMULATING [id number] 04:50:00 Test Item Value Reference Range Interpretation Comments THYROID STIMULATING 1.64 mIU/mL 0.55-4.78 Please n ote: New HORMONE (test code = Referen ce Range Oct TSH) 2020 CBC W/AUTO [id number] 04:28:00 Test Item Value Reference Range Interpretation [...] = BA#) 0.06 x10 3/uL 0.0-0.20 N [id number] 19:34:00 Test Item Value Reference Range Interpretation Comments GLUBED (test code = GLUBED) 230 MG/DL 70-105 H [id number] 17:43:00 Test Item Value Reference Range Interpretation Comments GLUBED (test code = GLUBED) 251 MG/DL 70-105 H LACTIC [id number] 15:46:00 Test Item Value Reference Range Interpretation Comments LACTIC ACID (test code = LACT) 1.20 mmol/L 0.5-2.0 N COMPREHENSIVE METABOLIC [id number] 15:33:00 Test Item Value Reference Range Interpretation [...] AVG 11.04~~~~~~~~~~ ~~~~~~~ ~~~~~~~~~~~~~~~ ~~~~~~~ ~~~~~~~~~~~~~~~ ~~~~~~N ational Cholest stefania Education (NCEP ) Guidelines:~~~~ ~~~~~~~ ~~~~~~~~~~~~~~~ ~~~~~~~ ~~~~~~~~~~~~~~~ ~~~~~~~ ~~~~~ HDL Cholesterol<4 0mg/dL: HDL Cholesterol (Major risk factor for CHD)>60mg/dL: H DL Cholesterol (Ne gative risk factor for CHD)40-59mg/dL: Borderline Risk LDL Cholesterol<1 00mg/dL : Desirable LDL -C [id number] 0-159mg /dL: Borderline High Risk LDL-C cecytqjmudpql78 0-189mg /dL: High risk LDL-C concentration H DL-LDL Cholesterol is affected by a n umber of factors such as smoking, age an d sex.~~~~~~~~~~~ ~~~~~~~ ~~~~~~~~~~~~~~~ ~~~~~~~ ~~~~~~~~~~~~~~~ ~~~~~ [id number] 15:33:00 Test Item Value Reference Range Interpretation Comments PHOSPHOROUS (test code 4.6 mg/dL 2.4-5.1 N Pleas e note: New = PHOS) Reference Range Oct 2020 [id number] 15:33:00 Test Item Value Reference Range Interpretation Comments MAGNESIUM (test code = 2.5 mg/dL 1.6-2.6 N Pleas e note: New MAG) Reference Range Oct 2020 THYROID STIMULATING [id number] 15:33:00 Test Item Value Reference Range Interpretation Comments THYROID STIMULATING 3.05 mIU/mL 0.55-4.78 N Please n ote: New HORMONE (test code = Referen ce Range Oct TSH) 2020 B-TYPE NATRIURETIC [id number] 15:31:00 Test Item Value Reference Range Interpretation Comments B-TYPE NATRIURETIC PEPTIDE (test 380 pg/mL <100 H code = BNP) COMPREHENSIVE METABOLIC [id number] 15:30:00 Test Item Value Reference Range Interpretation [...] AVG 11.04~~~~~~~~~~ ~~~~~~~ ~~~~~~~~~~~~~~~ ~~~~~~~ ~~~~~~~~~~~~~~~ ~~~~~~N ational Cholest stefania Education (NCEP ) Guidelines:~~~~ ~~~~~~~ ~~~~~~~~~~~~~~~ ~~~~~~~ ~~~~~~~~~~~~~~~ ~~~~~~~ ~~~~~ HDL Cholesterol<4 0mg/dL: HDL Cholesterol (Major risk factor for CHD)>60mg/dL: H DL Cholesterol (Ne gative risk factor for CHD)40-59mg/dL: Borderline Risk LDL Cholesterol<1 00mg/dL : Desirable LDL -C habttrvlntdpm35 0-159mg /dL: Borderline High Risk LDL-C iuwbuqqrbbbak47 0-189mg /dL: High risk LDL-C concentration H DL-LDL Cholesterol is affected by a n umber of factors such as smoking, age an d sex.~~~~~~~~~~~ ~~~~~~~ ~~~~~~~~~~~~~~~ ~~~~~~~ ~~~~~~~~~~~~~~~ ~~~~~ [id number] 15:30:00 Test Item Value Reference Range Interpretation Comments PHOSPHOROUS (test code 4.6 mg/dL 2.4-5.1 N Pleradha hirsch note: New = PHOS) Reference Range Oct 2020 [id number] 15:30:00 Test Item Value Reference Range Interpretation Comments MAGNESIUM (test code = 2.5 mg/dL 1.6-2.6 N Pleas e note: New MAG) Reference Range Oct 2020 THYROID STIMULATING [id number] 15:30:00 Test Item Value Reference Range Interpretation Comments THYROID STIMULATING HORMONE (test mIU/mL 0.55-4.78 code = TSH) COVID 19 Asymptomatic IH [id number] 15:02:00 Test Item Value Reference Range Interpretation [...] and symptomsconsist ent with COVID-19. THROMBOPLASTIN TIME [id number] 14:43:00 Test Item Value Reference Range Interpretation Comments THROMBOPLASTIN TIME 30.1 SECONDS 23.8-34.8 N INTERPRE TATIVE PARTIAL (test code = DATA: erapeutic PTT) range: Unfractionated heparin:55 - 80 seconds Argatroban:1.5 to 3 times the basel ine PTT CBC W/AUTO [id number] 14:34:00 Test Item Value Reference Range Interpretation [...] 3/uL 0.0-0.20 N - XR CHEST 1 [id number] 14:08:[address] [facility] 1950 Sex: FPatient Name: KATELIN MUNSON Unit No: [id number] EXAMS: CPT CODE: [id number] XR CHEST 1 V 02770 CHEST, SINGLE VIEW DICTATION LOCATION A1 HISTORY: A spectral placement. A single view of the chest was obtained at 12:05 PM. No prior exams are available for comparison. FINDINGS: Mild cardiomegaly and central pulmonary vascular congestion are present. The lungs are clear. No pneumothorax is seen. Left chest pacing device and cardiac leads appear to be in good position. IMPRESSION: Mild cardiomegalyand central pulmonary vascular congestion. No acute findings otherwise. at 1408 Reported and signed by: Eddie Muniz Jr, MD CC: Florentino Jenkins MD Technologist: Misael Barajas Time: DAP (Gy m2): Air Kerma (mGy): Trscr Dt/Tm: 05/08/2021 (1408) by:Viky Printed Date/Time: 05/08/2021 (1411) Name: KATELIN MUNSON [facility] Phys: Florentino Jenkins MD [address] : 1950 Age: 70 Sex: [place] [id number] Loc: P.[id number] 1 Exam Date: 05/08/2021 Status: ADM IN PH: FAX: PAGE 1 Signed ReportHEMOGLOBIN [id number] 00:00:00 Test Item Value Reference Range Interpretation Comments HEMOGLOBIN A1c (test code = 00430) 7.6 % HEMOGLOBIN [id number] 00:00:00 Test Item Value Reference Range Interpretation Comments HEMOGLOBIN A1c (test code = 60239) 7.6 % HEMOGLOBIN [id number] 00:00:00 Test Item Value Reference Range Interpretation Comments HEMOGLOBIN A1c (test code = 08142) 7.6 % LIPID [id number] 00:00:00 Test Item Value Reference Range Interpretation Comments CHOLESTEROL (test code = 2210) 124 MG/DL TRIGLYCERIDES (test code = 2232) 161 MG/DL HDL CHOLESTEROL (test code = 2220) 34 MG/DL CALC LDL CHOL (test code = 2237) 66 MG/DL RISK RATIO LDL/HDL (test code = 1.94 RATIO 2238) LIPID [id number] 00:00:00 Test Item Value Reference Range Interpretation Comments CHOLESTEROL (test code = 2210) 124 MG/DL TRIGLYCERIDES (test code = 2232) 161 MG/DL HDL CHOLESTEROL (test code = 2220) 34 MG/DL CALC LDL CHOL (test code = 2237) 66 MG/DL RISK RATIO LDL/HDL (test code = 1.94 RATIO 2238) COMPREHENSIVE METABOLIC [id number] 00:00:00 Test Item Value Reference Range Interpretation Comments GLUCOSE (test code = 2217) 177 MG/DL BUN (test code = 2208) 71 MG/DL CREATININE (test code = 2214) 2.96 MG/DL eGFR AMER. (test code 18 ML/MIN/1.73 = 76058) eGFR NON- AMER. (test 16 ML/MIN/1.73 code = 05519) CALC BUN/CREAT (test code = 24 RATIO [...] code = 2219) 15 U/L COMPREHENSIVE METABOLIC [id number] 00:00:00 Test Item Value Reference Range Interpretation Comments GLUCOSE (test code = 2217) 177 MG/DL BUN (test code = 2208) 71 MG/DL CREATININE (test code = 2214) 2.96 MG/DL eGFR AMER. (test code 18 ML/MIN/1.73 = 48376) eGFR NON- AMER. (test 16 ML/MIN/1.73 code = 65448) CALC BUN/CREAT (test code = 24 RATIO [...] A/G RATIO (test code = 1.4 RATIO 4) BILIRUBIN, TOTAL (test code = 0.4 MG/DL 2206) ALKALINE PHOSPHATASE (test 109 U/L code = 2204) AST (test code = 2218) 11 U/L ALT (test code = 2219) 15 U/L HEMOGLOBIN [id number] 00:00:00 Test Item Value Reference Range Interpretation Comments HEMOGLOBIN A1c (test code = 84623) 7.6 % HEMOGLOBIN [id number] 00:00:00 Test Item Value Reference Range Interpretation Comments HEMOGLOBIN A1c (test code = 00299) 7.6 % HEMOGLOBIN [id number] 00:00:00 Test Item Value Reference Range Interpretation Comments HEMOGLOBIN A1c (test code = 29395) 7.6 % LIPID [id number] 00:00:00 Test Item Value Reference Range Interpretation Comments CHOLESTEROL (test code = 2210) 124 MG/DL TRIGLYCERIDES (test code = 2232) 161 MG/DL HDL CHOLESTEROL (test code = 2220) 34 MG/DL CALC LDL CHOL (test code = 2237) 66 MG/DL RISK RATIO LDL/HDL (test code = 1.94 RATIO 2238) LIPID [id number] 00:00:00 Test Item Value Reference Range Interpretation Comments CHOLESTEROL (test code = 2210) 124 MG/DL TRIGLYCERIDES (test code = 2232) 161 MG/DL HDL CHOLESTEROL (test code = 2220) 34 MG/DL CALC LDL CHOL (test code = 2237) 66 MG/DL RISK RATIO LDL/HDL (test code = 1.94 RATIO 2238) COMPREHENSIVE METABOLIC [id number] 00:00:00 Test Item Value Reference Range Interpretation Comments GLUCOSE (test code = 2217) 177 MG/DL BUN (test code = 2208) 71 MG/DL CREATININE (test code = 2214) 2.96 MG/DL eGFR AMER. (test code 18 ML/MIN/1.73 = 84709) eGFR NON- AMER. (test 16 ML/MIN/1.73 code = 17220) CALC BUN/CREAT (test code = 24 RATIO [...] code = 2219) 15 U/L COMPREHENSIVE METABOLIC [id number] 00:00:00 Test Item Value Reference Range Interpretation Comments GLUCOSE (test code = 2217) 177 MG/DL BUN (test code = 2208) 71 MG/DL CREATININE (test code = 2214) 2.96 MG/DL eGFR AMER. (test code 18 ML/MIN/1.73 = 49215) eGFR NON- AMER. (test 16 ML/MIN/1.73 code = 08891) CALC BUN/CREAT (test code = 24 RATIO [...] (test code = 2219) 15 U/L HEMOGLOBIN [id number] 00:00:00 Test Item Value Reference Range Interpretation Comments HEMOGLOBIN A1c (test code = 10405) 6.6 % HEMOGLOBIN [id number] 00:00:00 Test Item Value Reference Range Interpretation Comments HEMOGLOBIN A1c (test code = 02138) 6.6 % HEMOGLOBIN [id number] 00:00:00 Test Item Value Reference Range Interpretation Comments HEMOGLOBIN A1c (test code = 83723) 6.6 % LIPID [id number] 00:00:00 Test Item Value Reference Range Interpretation Comments CHOLESTEROL (test code = 2210) 158 MG/DL TRIGLYCERIDES (test code = 2232) 144 MG/DL HDL CHOLESTEROL (test code = 2220) 42 MG/DL CALC LDL CHOL (test code = 2237) 92 MG/DL RISK RATIO LDL/HDL (test code = 2.19 RATIO 2238) LIPID [id number] 00:00:00 Test Item Value Reference Range Interpretation Comments CHOLESTEROL (test code = 2210) 158 MG/DL TRIGLYCERIDES (test code = 2232) 144 MG/DL HDL CHOLESTEROL (test code = 2220) 42 MG/DL CALC LDL CHOL (test code = 2237) 92 MG/DL RISK RATIO LDL/HDL (test code = 2.19 RATIO 2238) COMPREHENSIVE METABOLIC [id number] 00:00:00 Test Item Value Reference Range Interpretation Comments GLUCOSE (test code = 2217) 146 MG/DL BUN (test code = 2208) 55 MG/DL CREATININE (test code = 2214) 2.77 MG/DL eGFR AMER. (test code 20 ML/MIN/1.73 = 87865) eGFR NON- AMER. (test 17 ML/MIN/1.73 code = 99939) CALC BUN/CREAT (test code = 20 RATIO 2235) SODIUM (test code = 2231) 143 MEQ/L POTASSIUM (test code = 2228) 5.2 MEQ/L CHLORIDE (test code = 2215) 101 MEQ/L CARBON DIOXIDE (test code = 26 MEQ/L 2205) CALCIUM (test code = 2209) 9.7 MG/DL PROTEIN, TOTAL (test code = 6.8 G/DL 2228) ALBUMIN (test code = 220) 4.0 G/DL CALC GLOBULIN (test code = 2.8 G/DL 2240) CALC A/G RATIO (test code = 1.4 RATIO 2234) BILIRUBIN, TOTAL (test code = 0.3 MG/DL 2206) ALKALINE PHOSPHATASE (test 117 U/L code = 2204) AST (test code = 2218) 18 U/L ALT (test code = 2219) 20 U/L COMPREHENSIVE METABOLIC [id number] 00:00:00 Test Item Value Reference Range Interpretation Comments GLUCOSE (test code = 2217) 146 MG/DL BUN (test code = 2208) 55 MG/DL CREATININE (test code = 2214) 2.77 MG/DL eGFR AMER. (test code 20 ML/MIN/1.73 = 57216) eGFR NON- AMER. (test 17 ML/MIN/1.73 code = 68888) CALC BUN/CREAT (test code = 20 RATIO 2235) SODIUM (test code = 2231) 143 MEQ/L POTASSIUM (test code = 2228) 5.2 MEQ/L CHLORIDE (test code = 2215) 101 MEQ/L CARBON DIOXIDE (test code = 26 MEQ/L 2205) CALCIUM (test code = 2209) 9.7 MG/DL PROTEIN, TOTAL (test code = 6.8 G/DL 9) ALBUMIN (test code = 2201) 4.0 G/DL CALC GLOBULIN (test code = 2.8 G/DL 2240) CALC A/G RATIO (test code = 1.4 RATIO 2234) BILIRUBIN, TOTAL (test code = 0.3 MG/DL 7) ALKALINE PHOSPHATASE (test 117 U/L code = 2204) AST (test code = 2218) 18 U/L ALT (test code = 2219) 20 U/L HEMOGLOBIN [id number] 00:00:00 Test Item Value Reference Range Interpretation Comments HEMOGLOBIN A1c (test code = 76129) 6.6 % HEMOGLOBIN [id number] 00:00:00 Test Item Value Reference Range Interpretation Comments HEMOGLOBIN A1c (test code = 04478) 6.6 % HEMOGLOBIN [id number] 00:00:00 Test Item Value Reference Range Interpretation Comments HEMOGLOBIN A1c (test code = 31419) 6.6 % LIPID [id number] 00:00:00 Test Item Value Reference Range Interpretation Comments CHOLESTEROL (test code = 2210) 158 MG/DL TRIGLYCERIDES (test code = 2232) 144 MG/DL HDL CHOLESTEROL (test code = 2220) 42 MG/DL CALC LDL CHOL (test code = 2237) 92 MG/DL RISK RATIO LDL/HDL (test code = 2.19 RATIO 2238) LIPID [id number] 00:00:00 Test Item Value Reference Range Interpretation Comments CHOLESTEROL (test code = 2210) 158 MG/DL TRIGLYCERIDES (test code = 2232) 144 MG/DL HDL CHOLESTEROL (test code = 2220) 42 MG/DL CALC LDL CHOL (test code = 2237) 92 MG/DL RISK RATIO LDL/HDL (test code = 2.19 RATIO 2238) COMPREHENSIVE METABOLIC [id number] 00:00:00 Test Item Value Reference Range Interpretation Comments GLUCOSE (test code = 2217) 146 MG/DL BUN (test code = 2208) 55 MG/DL CREATININE (test code = 2214) 2.77 MG/DL eGFR AMER. (test code 20 ML/MIN/1.73 = 96547) eGFR NON- AMER. (test 17 ML/MIN/1.73 code = 07237) CALC BUN/CREAT (test code = 20 RATIO [...] code = 2219) 20 U/L COMPREHENSIVE METABOLIC [id number] 00:00:00 Test Item Value Reference Range Interpretation Comments GLUCOSE (test code = 2217) 146 MG/DL BUN (test code = 2208) 55 MG/DL CREATININE (test code = 2214) 2.77 MG/DL eGFR AMER. (test code 20 ML/MIN/1.73 = 12440) eGFR NON- AMER. (test 17 ML/MIN/1.73 code = 47866) CALC BUN/CREAT (test code = 20 RATIO [...] CALC GLOBULIN (test code = 2.8 G/DL 224) CALC A/G RATIO (test code = 1.4 RATIO 2233) BILIRUBIN, TOTAL (test code = 0.3 MG/DL 2206) ALKALINE PHOSPHATASE (test 117 U/L code = 2204) AST (test code = 2218) 18 U/L ALT (test code = 2219) 20 U/L CULTURE, [id number] 00:00:00 Test Item Value Reference Range Interpretation Comments CULTURE, ROUTINE (test SPECIMEN NUMBER: code = 82150) CULTURE, [id number] 00:00:00 Test Item Value Reference Range Interpretation Comments CULTURE, ROUTINE (test SPECIMEN NUMBER: code = 96108) CULTURE, [id number] 00:00:00 Test Item Value Reference Range Interpretation Comments CULTURE, ROUTINE (test SPECIMEN NUMBER: code = 41246) CULTURE, [id number] 00:00:00 Test Item Value Reference Range Interpretation Comments CULTURE, ROUTINE (test SPECIMEN NUMBER: code = 74061) CULTURE, [id number] 00:00:00 Test Item Value Reference Range Interpretation Comments CULTURE, ROUTINE (test SPECIMEN NUMBER: code = 83737) CULTURE, [id number] 00:00:00 Test Item Value Reference Range Interpretation Comments CULTURE, ROUTINE (test SPECIMEN NUMBER: code = 90665)
[2023-07-27 01:41] LABS: SARS-CoV-2 Antigen Rapid Res Negative (Negative)
--- NOTE | 2023-07-27 02:18 | ER ---
Nurse's Notes [facility] Name: Nhung Munson Age: 72 yrs Sex: Female : 1950 Arrival Date: 07/27/2023 Time: 00:50 Bed 15 Private MD: Diagnosis: Acute bronchitis, unspecified Presentation: 07/27 00:56 Chief complaint: Patient states: cough x 3 days reports people in home also have kl similar symptoms. Coronavirus screen: Vaccine status: Patient reports receiving the 2nd dose of the covid vaccine. Ebola Screen: Patient negative for fever greater than or equal to 101.5 degrees Fahrenheit, and additional compatible Ebola Virus Disease symptoms. Initial Sepsis Screen: Does the patient meet any 2 criteria? No. Patient's initial sepsis screen is negative. Does the patient have a suspected source of infection? No. Patient's initial sepsis screen is negative. Risk Assessment: Do you want to hurt yourself or someone else? Patient reports no desire to harm self or others. Onset of symptoms was July 24, 2023. 00:56 Method Of Arrival: EMS: [facility] 00:56 Acuity: BACILIO 4 kl Triage Assessment: 00:59 General: Appears in no apparent distress. Behavior is calm, cooperative. Pain: Denies kl pain. Respiratory: Reports shortness of breath cough that is non-productive, Airway is patent Trachea midline Respiratory effort is even, unlabored, Respiratory pattern is regular, symmetrical, pt home O2 settigs 2 liters pt currenlty stting 100% on 2 liters the patient has mild shortness of breath. GI: No deficits noted. No signs and/or symptoms were reported involving the gastrointestinal system. : No deficits noted. No signs and/or symptoms were reported regarding the genitourinary system. 01:01 General: Appears unkempt, Behavior is. kl Historical: - Allergies: 00:58 Amoxicillin; kl 00:58 Bactrim DS; kl 00:58 Demerol; kl - PMHx: 00:58 Atrial Fib; Diabetes - IDDM; High Cholesterol; Hypertension; Renal Problems; cellulitis kl left lower extremity (Renal Problems); - PSHx: 00:58 pacemaker (Renal Problems); AV fistula (Renal Problems); kl - Immunization history:: Adult Immunizations up to date. - Social history:: Smoking status: Patient denies any tobacco usage or history of. Screenin:24 [facility] ED Fall Risk Assessment (Adult) History of falling in the last 3 months, including since admission No falls in past 3 months (0 pts) Confusion or Disorientation No (0 pts) Intoxicated or Sedated No (0 pts) Impaired Gait Yes (1 pt) Mobility Assist Device Used Yes (1 pt) Altered Elimination No (0 pt) Score/Fall Risk Level 0 - 2 = Low Risk Oriented to surroundings, Maintained a safe environment. Abuse screen: Denies threats or abuse. Nutritional screening: No deficits noted. Tuberculosis screening: No symptoms or risk factors identified. Assessment: 01:24 Reassessment: see triage. Respiratory: No deficits noted. Airway is patent Respiratory kl effort is even, unlabored. 01:46 Reassessment: Patient appears in no apparent distress at this time. Patient and/or kl family updated on plan of care and expected duration. Pain level reassessed. Patient is alert, oriented x 3, equal unlabored respirations, skin warm/dry/pink. 02:29 Reassessment: Patient appears in no apparent distress at this time. 02:30 Cardiovascular: Rhythm is 02:31 Respiratory: Breath sounds are clear bilaterally. Vital Signs: 00:56 BP 134 / 44; Pulse 60; Resp 18; Temp 98.4(O); Pulse Ox 100% 2 lpm ; Weight 113.4 kg (R); Height 5 ft. 1 in. ; 01:26 BP 140 / 47; Pulse 60; Resp 18; Pulse Ox 100% on 2 lpm NC; kl 01:46 BP 122 / 42; Pulse 62; Resp 20; Pulse Ox 100% on 2 lpm NC; kl 02:29 BP 118 / 50; Pulse 60; Resp 18; Pulse Ox 100% on 2 lpm NC; kl 00:56 Body Mass Index 47.24 (113.40 kg, 154.94 cm) ED Course: 00:51 Patient arrived in ED. jj6 00:52 Rosetta Munoz PA-C is PHCP. sb4 00:52 Janes Stein MD is Attending Physician. sb4 00:58 Triage completed. kl 01:23 Flu Sent. kl 01:23 SARS RAPID Sent. kl 01:24 Patient has correct armband on for positive identification. Bed in low position. Call kl light in reach. Side rails up X2. 01:27 Chest Single View XRAY In Process Unspecified. EDMS 02:30 No provider procedures requiring assistance completed. Patient did not have IV access kl during this emergency room visit. Administered Medications: No medications were administered Medication: 02:30 VIS not applicable for this client. Outcome: 02:17 Discharge ordered by MD. harris 02:30 Discharged to home via ambulance, 02:30 Condition: stable 02:30 Discharge instructions given to patient, Instructed on discharge instructions, follow up and referral plans. medication usage, Demonstrated understanding of instructions, follow-up care, medications, Prescriptions given X 1, 02:31 Patient left the ED. Signatures: Dispatcher [employer] EDShante Woody RN RN kl Jeffries, Jennifer jj6 Brown, Sophia, PA-C PA-C sb4 Corrections: (The following items were deleted from the chart) 01:26 01:25 BP 140 / 47; Pulse 60bpm; Resp 18bpm; Pulse Ox 100% RA; kl
--- NOTE | 2023-07-27 02:18 | EDPHYS ---
Physician Documentation [facility] Name: Nhung Munson Age: 72 yrs Sex: Female : 1950 Arrival Date: 07/27/2023 Time: 00:50 Bed 15 Private MD: ED Physician Janes Stein HPI: 07/27 01:10 This 72 yrs old Female presents to ER via EMS with complaints of Cough, Shortness Of sb4 Breath. 01:10 patient states that she started experiencing a cough about 3 days ago associated with sb4 shortness of breath. she reports that her family members have similar symptoms. she denies any chest pain, fever, chills, nausea, vomiting, congestion, sore throat. no other associated signs and symptoms. cough worse when laying down, shortness of breath worse with exertion. Historical: - Allergies: 00:58 Amoxicillin; kl 00:58 Bactrim DS; kl 00:58 Demerol; kl - PMHx: 00:58 Atrial Fib; Diabetes - IDDM; High Cholesterol; Hypertension; Renal Problems; cellulitis kl left lower extremity (Renal Problems); - PSHx: 00:58 pacemaker (Renal Problems); AV fistula (Renal Problems); kl - Immunization history:: Adult Immunizations up to date. - Social history:: Smoking status: Patient denies any tobacco usage or history of. ROS: 01:10 Constitutional: Negative for fever, chills, and weight loss, sb4 01:10 Respiratory: Positive for cough, shortness of breath, 01:10 All other systems are negative, Exam: 01:10 Head/Face: Normocephalic, atraumatic. Eyes: Extra-ocular motions intact. Periorbital sb4 areas with no swelling, redness, or edema. ENT: Mucous membranes moist. Cardiovascular: Regular rate and rhythm with a normal S1 and S2. Respiratory: Lungs have equal breath sounds bilaterally, clear to auscultation and percussion. No rales, rhonchi or wheezes noted. No increased work of breathing, no retractions or nasal flaring. Abdomen/GI: Soft, non-tender, no distension. Skin: Warm, dry with normal turgor. Normal color with no rashes, no lesions, and no evidence of cellulitis. MS/ Extremity: Pulses equal, no cyanosis. Neurovascular intact. Full, normal range of motion. 01:10 Constitutional: The patient appears in no acute distress, alert, awake, obese, Vital Signs: 00:56 BP 134 / 44; Pulse 60; Resp 18; Temp 98.4(O); Pulse Ox 100% 2 lpm ; Weight 113.4 kg kl (R); Height 5 ft. 1 in. ; 01:26 BP 140 / 47; Pulse 60; Resp 18; Pulse Ox 100% on 2 lpm NC; kl 01:46 BP 122 / 42; Pulse 62; Resp 20; Pulse Ox 100% on 2 lpm NC; kl 02:29 BP 118 / 50; Pulse 60; Resp 18; Pulse Ox 100% on 2 lpm NC; kl 00:56 Body Mass Index 47.24 (113.40 kg, 154.94 cm) kl MDM: 00:52 Patient medically screened. sb4 01:10 Differential Diagnosis: Bronchitis Influenza Upper Respiratory Infection Asthma sb4 Exacerbation Viral Syndrome Pneumonia. 02:14 Data reviewed: vital signs, nurses notes, lab test result(s), radiologic studies, and sb4 as a result, I will discharge patient. Test considered but Not performed: Labs: not indicated, saturating appropriately on baseline O2 requirement, chest xray clear, lungs cleas on auscultation. Care significantly affected by the following chronic conditions: Diabetes, Hypertension, Congestive Heart Failure, Chronic Obstructive Pulmonary Disease, Obesity, Chronic Kidney Disease. Counseling: I had a detailed discussion with the patient and/or guardian regarding the historical points, exam findings, and any diagnostic results supporting the discharge/admit diagnosis, lab results, radiology results, to return to the emergency department if symptoms worsen or persist or if there are any questions or concerns that arise at home. 07/27 01:06 Order name: SARS RAPID; Complete Time: 01:43 sb4 07/27 01:06 Order name: Flu; Complete Time: 02:02 sb4 07/27 01:15 Order name: Chest Single View XRAY sb4 Administered Medications: No medications were administered Disposition Summary: 07/27/23 02:17 Discharge Ordered Notes: Location: Home sb4 Problem: new sb4 Symptoms: are unchanged sb4 Condition: Stable sb4 Diagnosis - Acute bronchitis, unspecified sb4 Followup: sb4 - With: Emergency Department - When: As needed - Reason: Trouble breathing, Worsening of condition Discharge Instructions: - Discharge Summary Sheet sb4 - Acute Bronchitis, Adult sb4 Forms: - Medication Reconciliation Form sb4 - Thank You Letter sb4 - Antibiotic Education sb4 - Prescription Opioid Use sb4 - Patient Portal Instructions sb4 - Leadership Thank You Letter sb4 Prescriptions: - albuterol sulfate 90 mcg/actuation Inhalation HFA Aerosol Inhaler - inhale 1 puff INHALATION route every 4 to 6 hours as needed for bronchospasm; sb4 administer via ventilator; 1 application; Refills: 0, Product Selection Permitted Addendum: 07/28/2023 10:38 I was immediately available for consultation during this patient's visit. I did not e c2 personally see the patient or guide the patient's care. . Signatures: Dispatcher [employer] Shante Saldana RN RN Rosetta Leigh PAGiuliaC PA-C sb4 Janes Stein MD MD ec2 Corrections: (The following items were deleted from the chart) 07/27 01:27 01:06 Chest Pa And Lat (2 Views)+[email or web address] ordered. POLY PANG
[2023-07-27 02:35] VITALS: TEMP 98.4; O2SAT 100
[2023-07-27 02:39] VITALS: BP 118/50
--- NOTE | 2023-07-27 12:54 | RAD REPORT ---
EXAM DESCRIPTION: RAD - Chest Single View - 07/27/2023 1:26 am CLINICAL HISTORY: Chest pain;Congestion;Cough TECHNIQUE: Frontal view of the chest. COMPARISON: XR Chest dated 06/03/2023 FINDINGS: Lungs: Mild central pulmonary vascular and interstitial prominence. No consolidation. Pleural space: Unremarkable. No pneumothorax. Heart: The cardiac silhouette is enlarged, stable. Mediastinum: Unremarkable. Normal mediastinal contour. Bones/joints: Multilevel spondylosis. No acute fracture. Vasculature: Thoracic aortic atherosclerosis. Tubes, lines and devices: Left chest wall triple lead pacer remains in place. IMPRESSION: Findings which may be related to mild pulmonary congestion. Electronically signed by: Tashia Fitzgerald MD 07/27/2023 01:37 AM BOAT HAND Due to temporary technical issues with the PACS/Fluency reporting system, reports are being signed by the in house radiologist without review as a courtesy to ensure prompt reporting. The interpreting r adiologist is fully responsible for the content of the report.
== END 2023-07-27 02:31 | disposition home or self-care (01) ==
LOC: ER 00:50
DX: J20.9 Acute bronchitis, unspecified (principal); Z11.52 Encounter for screening for COVID-19; E11.9 Type 2 diabetes mellitus without complications; I10 Essential (primary) hypertension; Z88.1 Allergy status to other antibiotic agents; Z88.5 Allergy status to narcotic agent; Z95.0 Presence of cardiac pacemaker
CPT/HCPCS: 36415; 71045; 87804; 87811; 99284

== ENCOUNTER 2023-08-19 17:22 | Inpatient (IN) | payer OTHER ==
--- OUTSIDE RECORDS SUMMARY | 2023-08-19 19:15 | XMS REPORT | Clinical Summary ---
Author Name Unknown Organization [facility] Address [address] [place] [address] Care Team Providers Care Otm Consultant Name Role Phone Daly Lynn MD Primary Care Provider [phone] Faraz Bueno "Tarsha" Unavailable [phone] Faraz Bueno "Tarsha" Unavailable [phone] Jori Lynn MD Unavailable Allergies Active Allergy Reactions Criticality Noted Date Comments Amoxicillin Itching Low 08/06/2016 Sulfamethoxazole-Trimethoprim Itching Low 2015 Medications Medication Sig Dispensed Refills Start Date End Date Status carvedilol (COREG) 25 mg tablet Take 25 mg by mouth twice daily. 0 Active furosemide (LASIX) 40 mg tablet Take 40 mg by mouth twice daily. 40mg in AM, 20mg in PM daily 0 Active INSULIN NPH HUMAN ISOPHANE (NOVOLIN N SUBCUTANEOUS) Inject 45 Units under the skin twice daily. 45 units in AM and 40 units at bedtime 0 Active LIRAGLUTIDE (VICTOZA 2-TRENA SUBCUTANEOUS) Inject 1.8 mg under the skin daily. 0 Active cholecalciferol, vitamin D3, (VITAMIN D3) 2,000 units tab tablet Take 2,000 Units by mouth daily. 0 Active apixaban (ELIQUIS) 2.5 mg tablet Take 2.5 mg by mouth twice daily. 0 Active cloNIDine HCl (CATAPRES) 0.2 mg tablet Take 0.2 mg by mouth twice daily. 0 Active ferrous gluconate (FERGON) 325 mg tablet Take 37 mg by mouth daily with breakfast. 0 Active atorvastatin (LIPITOR) 20 mg tablet Take 20 mg by mouth daily. 0 Active spironolactone (ALDACTONE) 25 mg tablet Take 1 tablet by mouth 3 (three) times a week Thursday, Thursday and Thursday. 0 10/14/2016 Active allopurinol (ZYLOPRIM) 100 mg tablet Take 100 mg by mouth daily. 0 Active amiodarone (PACERONE) 200 mg tablet Take 200 mg by mouth daily. 0 Active fluticasone (FLONASE) 50 mcg/spray nasal spray Inhale 1 spray into each nostril daily. 0 Active loratadine (CLARITIN) 10 mg tablet Take 10 mg by mouth daily. 0 Active nystatin (MYCOSTATIN) 100,000 units/g powderIndications:Mal ignant neoplasm of endometrium,Renal impairment,Candidiasi s of skin Apply topically to affected area(s) twice daily. 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 Cancer Staging:Clinical stage from 08/25/2016:Stage IA(Primary) - Signed by Daly Lynn MD on 08/29/2016 Atrial fibrillation 08/06/2016 Diabetes mellitus 08/06/2016 Surgical History Surgery Date Site/Laterality Comments COLONOSCOPY Normal HYSTEROSCOPY 05/03/2016 TUBAL LIGATION Bilateral NH LAPAROSCOPY TOT HYSTERECTOMY >250 G W/TUBE/OVAR 08/15/2016 N/A Procedure: ROBOTIC ASSISTED TOTAL HYSTERECTOMY; Surgeon: Daly Lynn MD; Location: MAIN OR; Service: PRINT CONTROLLER - GYNECOLOGIC ONCOLOGY NH SALPINGO-OOPHORECTOMY COMPL/PRTL UNI/BI SPX 08/15/2016 Bilateral Procedure: ROBOTIC ASSISTED SALPINGO-OOPHORECTOMY; Surgeon: Daly Lynn MD; Location: MAIN OR; Service: PRINT CONTROLLER - GYNECOLOGIC ONCOLOGY NH INTRAOP SENTINEL LYMPH NODE ID W/DYE INJECTION 08/15/2016 Bilateral Procedure: INTRAOPERATIVE LYMPHATIC MAPPING; ROBOTIC SENTINEL LYMPH NODE MAPPING AND LYMPH NODE BIOPSY; Surgeon: Daly Lynn MD; Location: MAIN OR; Service: PRINT CONTROLLER - GYNECOLOGIC ONCOLOGY Medical History Medical History Date Comments Hypertension 2000 Hyperlipidemia 1999 Irregular heart beat 2004 Afib Dependence on continuous pos itive airway pressure ventilation Does not use Diverticulitis 2012 Disorder of vagina January 2016 Vaginal bleed 2015 Menopause 2000 Anemia 04/2016 Blood transfusion, without reported diagnosis Arthritis 2000 Diabetes mellitus 2000 Herpes zoster 2005 Cancer Family History Medical History Relation Name Comments -Breast cancer Maternal Aunt Kiki Hypertension Maternal Grandmother Tawnya d Stroke Maternal Grandmother Tawnya Stroke Mother Elina Relation Name Status Comments Maternal Aunt Kiki Maternal Grandmother Tawnya Mother Elina Social History Tobacco Use Types Packs/Day Years Used Date Smoking Tobacco: Never Smokeless Tobacco: Never Comments:has had secondhand smoke exposure Alcohol Use Standard Drinks/Week Comments No 0 (1 standard drink = 0.6 oz pur e alcohol) Sex and Gender Information Value Date Recorded Sex Assigned at Not on file Gender Identity Not on file Sexual Orientation Not on file Obstetrics History Para Term AB IAB SAB Ectopic Multiple Livin g Live Births 4 4 4 4 Date Outcome GA Total Labor Labor//3rd Weight Sex Delivery Anes PTL Valeria A1 A5 Name Cl in Term Term Term Term Comments 1) Screening: Pap Smear - de nies abnormal. Mammogram: last this year, denies abnormal. 2) HRT:denies Plan of Treatment Health Maintenance Due Date Last Done Comments COVID-19 Vaccination (#1) 04/03/1951 Advance Directives Latest Code Status on File Code Status Date Activated Date Inactivated Comments Full Code 08/15/2016 10:41 AM 08/16/2016 1:29 PM Care Teams Otm Consultant Relationship Specialty Start Date End Date Daly Lynn MD PCP - General Gynecologic Medical Oncology 07/22/16 Faraz Bueno MD (Mini) PCP - External Referring Obstetrics/Gynecology 01/26/17 Faraz Bueno MD (Mini) PCP - External Follow Up A Obstetrics/Gynecology 01/26/17 Jori Lynn MD [address] [place] [address] Consulting Physician Internal Medicine 08/13/16
[2023-08-19] MEDS ORDERED: ONDANSETRON 4 MG/2 ML VIAL IV PRN (19:53)
[2023-08-19] MEDS ORDERED: ACETAMINOPHEN 325 MG TABLET PO PRN (19:53)
--- NOTE | 2023-08-19 20:00 | P.HP ---
Certification for Inpatient Patient admitted to: Inpatient With expected LOS: >2 Midnights Practitioner: I am a practitioner with admitting privileges, knowledge of patient current condition, hospital course, and medical plan of care. Services: Services provided to patient in accordance with Admission requirements found in Title 42 Section 412.3 of the Code of Federal Regulations Patient History Date of Service: 08/20/23 Reason for admission: Worsening kidney function History of Present Illness: 72-year-old female patient with medical history significant for type 2 diabetes, hypertension, hyperlipidemia, CKD which is progressively worsened who came into the hospital as a direct admit with complaint of worsening kidney function and was sent for evaluation by our treating night cleaner Dr. Mays. She reports worsening lethargy but denies overt episode of nausea, vomiting, fever, chills, rigor. She had labs done that revealed elevated creatinine of 3.8 and BUN of 129. She also had severely elevated glucose of 400. Her night cleaner is considering starting dialysis based on her worsening kidney function. Allergies amoxicillin [Amoxicillin] Allergy (Intermediate, Verified 06/16/23 08:31) Hives/Rash sulfamethoxazole [From Bactrim] Allergy (Intermediate, Verified 06/16/23 08:31) Hives/Rash trimethoprim [From Bactrim] Allergy (Intermediate, Verified 06/16/23 08:31) Hives/Rash Home Medications: Allopurinol 100 mg PO BID 06/23/20 Atorvastatin Calcium 20 mg PO BEDTIME 06/23/20 Carvedilol [Coreg] 25 mg PO BID 06/23/20 Cholecalciferol (Vitamin D3) [Vitamin D3] 3,000 unit PO DAILY 06/23/20 Ferrous Sulfate [Iron] 325 mg PO TID 06/23/20 Loratadine [Claritin*] 10 mg PO DAILY 06/23/20 Apixaban [Eliquis] 5 mg PO BID 01/01/23 Digoxin [Lanoxin*] 0.125 mg PO DAILY 01/01/23 Lisinopril [Zestril] 2.5 mg PO DAILY 01/01/23 Insulin Lispro [Humalog] See Rx Instructions .ROUTE .COMPLEX 01/13/23 Insulin NPH Human Isophane [Novolin N] 52 unit SQ BID 01/13/23 Liraglutide [Victoza 2-Meir] 1.8 units IN DAILY 01/13/23 Pantoprazole Sodium 40 mg PO BID 30 Days #60 tab 06/08/23 Furosemide 2 tab PO BID 06/12/23 - Past Medical/Surgical History Diabetic: Yes -: Diabetes mellitus type 2-insulin dependent -: Hypertension -: Afib on chronic anticoagulation -: Obesity -: Hyperlipidemia -: Chronic renal disease stage IV -: Cancer uterine 3years ago -: Degenerative joint disease of the hip -: Chronic systolic congestive heart failure -: Tubal ligation -: Hysterectomy -: pacemaker Psychosocial/ Personal History: She is of 49 years, has 4 children, she does not work, lives at home with her . - Family History Father -: Kidney disease Mother -: Diabetes - Social History Alcohol use: No CD- Drugs: No Caffeine use: Yes Review of Systems General: Weakness, Malaise Eyes: Unremarkable ENT: Unremarkable Respiratory: Unremarkable Cardiovascular: Unremarkable Gastrointestinal: Other Genitourinary: Unremarkable Musculoskeletal: Unremarkable Integumentary: Unremarkable Neurological: Unremarkable Physical Examination - Physical Exam General: Alert, Oriented x3 HEENT: Atraumatic, Normocephalic Neck: Supple Respiratory: Normal air movement Cardiovascular: Regular rate/rhythm, Normal S1 S2 Gastrointestinal: Soft and benign Musculoskeletal: No swelling Neurological: Normal speech Assessment and Plan - Plan Acute on chronic kidney disease/ESRD: Presenting creatinine is about 3.5 and BUN is in the 120s. Will hydrate gently and have nephrology evaluate for possible start of dialysis. Will continue on the renal diet. Will obtain serum phosphorus, and start phosphorus binders with meals if neces juan. Diabetes type 2: Will continue on carb restricted diet and home insulin dose. We will continue on sliding scale insulin for glucose control and monitor blood sugar ACHS. Anemia of renal disease: We have obtained iron panel and iron saturation is about 13%. Excavator Backhoe Operator to assist with iron repletion and Epogen therapy as needed. Hypertension: We will monitor vital signs per unit protocol and continue antihypertensive medications. Goal blood pressures less than 130/80 mmHg. Hyperlipidemia: We will continue statin therapy. Prophylaxis: Heparin for DVT prophylaxis. CODE STATUS: Full code. Disposition: Pending night cleaner eval and management plan for long-term dialysis/kidney function abnormality review. - Advance Directives Does patient have a Living Will: No Does patient have a Durable POA for Healthcare: No
[2023-08-19 22:19] LABS: Absolute Lymphocytes (CBC) 0.7 K/uL (0.7-4.9); Hematocrit 31.7 % (36.0-45.0); Lymphocytes % 5.5 % (15.3-44.8); MCV 91.7 fL (80-100); MPV 8.7 fL (7.6-11.3); Platelets 265 thou/uL (152-406); RBC Red Blood Cell Count 3.46 M/uL (3.86-4.86)
[2023-08-19 22:27] VITALS: BMI 42.9
[2023-08-19] MEDS: NA CHLORIDE 0.9% 1,000 ML IV SCH (22:39)
[2023-08-20 00:06] LABS: Albumin 2.8 g/dL (3.4-5.0); Bilirubin Total 0.2 mg/dL (0.2-1.0); Ferritin 137.5 ng/mL (8-388); Potassium 4.7 mEq/L (3.5-5.1); Protein, Total 6.9 g/dL (6.4-8.2)
[2023-08-20 00:55] LABS: Blood Morphology Comment NOT SEEN (NOT SEEN); Platelet Estimate ADEQ
[2023-08-20] MEDS ORDERED: GLUCAGON 1 MG/VIAL IM PRN ×2 (00:58→18:04)
[2023-08-20] MEDS ORDERED: D50W 25 GM/50 ML SYRINGE IV PRN (00:58)
[2023-08-20] MEDS ORDERED: INSULIN REGULAR (HUMAN) 100 UNIT/ML ONE (01:31)
[2023-08-20] MEDS: HEPARIN 5000 UNIT/ML 1 ML VIAL SQ SCH ×3 (01:38→16:59)
[2023-08-20 07:57] LABS: Phosphorus 3.9 mg/dL (2.5-4.9); Potassium 4.2 mEq/L (3.5-5.1)
[2023-08-20] MEDS: INSULIN REGULAR (HUMAN) 100 UNIT/ML SQ SCH ×4 (09:34→20:35)
[2023-08-20] MEDS: NA CHLORIDE 0.9% 1,000 ML IV SCH ×2 (09:34→12:30)
[2023-08-20] MEDS ORDERED: D10W 125 ML IV PRN (12:19)
--- NOTE | 2023-08-20 12:40 | RAD REPORT ---
[facility] 12[facility]11 pm CLINICAL HISTORY: Chest pain COMPARISON: July 2023 FINDINGS: The lungs appear clear of acute infiltrate. He heart is mildly to moderately enlarged. Pacemaker leads in place Pulmonary venous congestion
[2023-08-20] MEDS ORDERED: SOD FERRIC GLUC COMPLX/SUCROSE 250 MG in NA CHLORIDE 0.9% 250 ML IV SCH (13:00)
[2023-08-20] MEDS ORDERED: EPOETIN ALFA-EPBX 10,000 UNIT/ML VIAL SQ ONE (13:00)
--- NOTE | 2023-08-20 16:26 | CON ---
Date of Consultation: 08/20/2023 Reason For Consultation: Elevated BUN and creatinine, fluid management, acute kidney injury. 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 John griffiths in November 2021. Patient came to the offic e yesterday after a followup visit 6 weeks ago. At that time, we increased her Lasix to 80 mg, added metolazone because patient was short of breath, overvolume. Patient came to the office with elevati on in creatinine up to 3.2 and GFR of 15. Patient had BUN up to 21 to 28. Patient had ER visit with overvolume. Patient had nausea and vomiting. For that reason, patient was referred to the hospital . Over the night, diuresis has been discontinued and started on gentle hydration. According to the patient, patient is feeling slightly better. No shortness of breath. Patient is still on room air. Her nausea has been subsided. Past Medical History: Includes: 1.Diabetes complicated with neuropathy, nephropathy. 2.Hypertension. 3.Hyperlipidemia. 4.Coronary artery disease, complicated with congestive heart failure, status post ICD. Also, AFib o n anticoagulation. 5.Uterine cancer 3 years ago. 6.EGD. Past Surgical History: Includes AV fistula, tubal ligation, pacemaker insertion, hysterectomy. Family History: Positive for diabetes, hypertension. Social History: Denied smoking, denied drinking, denied drugs abuse. Review of Systems: Head and Neck: No red eye. No ear pain. GI: Has nausea and vomiting. : No polyuria, no dysuria, no hematuria. RISK INTERN: No vaginal discharge. Respiratory: Has shortness of breath. Cardiovascular: No chest pain. Endocrine: No polydipsia. Skin: No rash. Neuro: Has neuropathy. Musculoskeletal: Generalized fatigue. Patient is using wheelchair. Physical Examination: Vital Signs: When I saw the patient, blood pressure 167/61, pulse of 77, afebrile. Chest: Crackles on the left base. Heart: S1, S2. Systolic murmur. Abdomen: Soft, nontender. Extremities: Trace edema. Neurologic: Alert, oriented x3. Nonfocal. No tremor. Laboratory Data: WBC 12.5, hemoglobin 10.2. Sodium 144, potassium 4.2, bicarb 35, BUN 122, creatinin e 2.9, calcium 9.7. Phosphorus 3.9. Iron saturation 13, ferritin 137. Albumin 2.8. Current Medications: The patient is on include: 1.Heparin. 2.Tylenol. 3.IV fluid at 75 per hour. Assessment And Plan: Acute kidney injury on advanced chronic kidney disease with some uremic symptom s. No hyperkalemia or acidosis. With severe disproportion BUN, creatinine, our differential is seco ndary to her cardiorenal/prerenal overdiuresis/with iron deficiency anemia. Patient may have some GI loss. 1.I am going to go ahead and decrease IV fluid to 50 per hour. Keep holding diuresis. 2.We will monitor the patient closely. 3.I do not see the need to initiate renal replacement therapy yet. We will monitor if BUN continue to trend down. We will adjust the diuresis after, but if she continued to have either uremic symptom s or BUN is significantly high, at that time we will initiate dialysis. Patient is in agreement if i t is needed, hopefully not. 4.Hypertension, controlled, optimal with the presence of acute kidney injury. Keep holding any JARAD inhibitor or ARB. Decrease IV fluid. We will keep holding diuresis for the time being. 5.Congestive heart failure, currently on the dry side. I am going to go ahead and get chest x-ray f or better evaluation of fluid status. Keep holding diuresis. Patient has been on room air. 6.Iron deficiency anemia. Start the patient on IV iron. We will follow up and I am going to give t he patient a single dose of Retacrit for the time being. 7.Diabetes as by primary. 8.Deconditioning. Continue physical therapy, occupational therapy. SALONI/SUSAN Voice ID: [id number] Report ID: [id number]
[2023-08-20] MEDS ORDERED: D10W 250 ML BAG IV PRN (18:04)
--- NOTE | 2023-08-20 18:04 | P.PN ---
Subjective Date of Service: 08/20/23 Chief Complaint: Worsening kidney function Patient denies any complaint. She denies any shortness of breath. Physical Examination - Vital Signs Temperature: 97.6 F Blood Pressure: 148/53 Pulse: 78 Respirations: 17 Pulse Ox (%): 96 - Studies Laboratory Data (last 24 hrs) 08/20/23 08/19/23 08/19/23 07:21 22:00 22:00 WBC 12.50 H Hgb 10.2 L Hct 31.7 L Plt Count 265 Sodium 144 D 137 Potassium 4.2 4.7 BUN 122 H 128 H Creatinine 2.96 H 3.33 H Glucose 221 H 434 H* Phosphorus 3.9 Total Bilirubin 0.2 AST 12 L ALT 15 Alkaline Phosphatase 119 H Assessment And Plan - Plan Physical Exam General: Alert, Oriented x3 Neck: Supple Respiratory: Normal air movement Cardiovascular: Regular rate/rhythm, Normal S1 S2 Gastrointestinal: Soft and benign, no tenderness. Musculoskeletal: No swelling Neurological: Normal speech, no focal motor deficit. Assessment and Plan Acute on chronic kidney disease stage IV Presenting creatinine up to 3.5 and BUN in the 120s. Creatinine improving with IV hydration Neurology input appreciated. Continue IV hydration and monitor renal function Renal diet. Monitor renal function. Nephrology to follow. Diabetes type 2: Insulin sliding scale. Resume home dose NPH insulin Anemia of renal disease: Iron saturation is about 13%. Transit Mechanic to assist with iron repletion and Epogen therapy as needed. Hypertension Resume home antihypertensives Hyperlipidemia: Continue home dose statin. Atrial fibrillation Stable. Continue Coreg. Hold Eliquis in case patient will need dialysis access. DVT Prophylaxis: Heparin SQ. Hold home dose Eliquis in case patient will need dialysis access. CODE STATUS: Full code.
[2023-08-20] MEDS: FERROUS SULFATE 325 MG TAB PO SCH (20:34)
[2023-08-20] MEDS: PANTOPRAZOLE 40MG TABLET PO SCH (20:34)
[2023-08-20] MEDS: allopurinoL 100 MG TAB PO SCH (20:34)
[2023-08-20] MEDS: carvediloL 25 MG TAB PO SCH (20:34)
[2023-08-20] MEDS: INSULIN NPH (HUMAN) 100 UNITS/ML SQ SCH (20:35)
[2023-08-20] MEDS ORDERED: ATORVASTATIN 20 MG TAB PO SCH (21:00)
[2023-08-21] MEDS: HEPARIN 5000 UNIT/ML 1 ML VIAL SQ SCH ×3 (01:51→16:25)
[2023-08-21 07:29] LABS: Albumin 2.4 g/dL (3.4-5.0); Phosphorus 3.3 mg/dL (2.5-4.9); Potassium 3.8 mEq/L (3.5-5.1); Uric Acid 6.2 mg/dL (2.6-6.0)
[2023-08-21] MEDS: INSULIN REGULAR (HUMAN) 100 UNIT/ML SQ SCH ×3 (07:30→16:24)
[2023-08-21] MEDS ORDERED: HOME MED 1 EA UNK (Cholecalciferol (Vitamin D3) [Vitamin D3] 2000 UNIT Capsule) PO SCH (09:00)
[2023-08-21] MEDS ORDERED: LORATADINE 10 MG TAB PO SCH (09:00)
[2023-08-21] MEDS ORDERED: VITAMIN D 1000 UNIT TAB PO SCH (09:00)
[2023-08-21] MEDS: INSULIN NPH (HUMAN) 100 UNITS/ML SQ SCH (10:09)
[2023-08-21] MEDS: carvediloL 25 MG TAB PO SCH (10:12)
[2023-08-21] MEDS: PANTOPRAZOLE 40MG TABLET PO SCH (10:12)
[2023-08-21] MEDS: allopurinoL 100 MG TAB PO SCH (10:12)
[2023-08-21] MEDS: FERROUS SULFATE 325 MG TAB PO SCH ×2 (10:13→14:34)
[2023-08-21] MEDS: NA CHLORIDE 0.9% 1,000 ML IV SCH (12:36)
[2023-08-21 16:27] VITALS: BP 155/68; TEMP 97.2
--- NOTE | 2023-08-21 16:41 | P.PN ---
Subjective Date of Service: 08/21/23 Chief Complaint: Worsening kidney function Subjective: No new changes Physical Examination - Vital Signs Temperature: 97.2 F Blood Pressure: 155/68 Pulse: 80 Respirations: 18 Pulse Ox (%): 97 - Physical Exam General: Other (chronically ill-appearing) HEENT: Atraumatic, Normocephalic Neck: Supple Respiratory: Other (symmetric chest expansion) Cardiovascular: No rubs, No murmurs Gastrointestinal: Soft and benign Musculoskeletal: No clubbing Integumentary: No warmth Neurological: Normal tone Urinary: Other (no bladder distention) External genitalia: Deferred Rectal: Deferred - Studies Laboratory Data (last 24 hrs) 08/21/23 06:38 Sodium 143 Potassium 3.8 BUN 93 H Creatinine 2.67 H Glucose 218 H Uric Acid 6.2 H Phosphorus 3.3 Assessment And Plan - Plan 1. Acute kidney injury on advanced chronic kidney disease. SCr improved to 2.7. Encourage po fluid intake. NS IVF prn. 2. Hypertension, controlled. continue current BP medication regimen. 3. Congestive heart failure, currently on the dry side. Hold diuretics. 4. Iron deficiency anemia. Received IV iron. Dose retacrit. Monitor CBC & iron panel. 5. DM2. Mngt per primary team. 6. Deconditioning. PT/OT.
--- NOTE | 2023-08-21 17:28 | P.DS ---
Admission Date: 08/19/23 Discharge Date: 08/21/23 Disposition: ROUTINE DISCHARGE Discharge Condition: FAIR Reason for Admission: Worsening kidney function Brief History of Present Illness: 72-year-old female patient with medical history significant for type 2 diabetes, hypertension, hyperlipidemia, CKD which is progressively worsened who came into the hospital as a direct admit for worsening kidney function. Her leather tacker is Dr. Mays. She reports worsening lethargy but denies overt episode of nausea, vomiting, fever, chills, rigor. She had labs done that revealed elevated creatinine of 3.8 and BUN of 129. She also had severely elevated glucose of 400. Patient was admitted for further management. Hospital Course: Patient admitted to the medical floor and the following medical problems addr essed: Diagnosis Acute on chronic kidney disease stage IV Presenting creatinine up to 3.5 and BUN in the 120s. BUN and Creatinine improved with IV hydration Nephrology Dr. Mays evaluated patient BUN significantly improved. Renal diet. Now clinically stable for discharge by nephrology. Her home Lasix dose decreased from 80 mg twice daily to 80 mg daily on discharge. Diabetes type 2: Insulin sliding scale. Resume home dose NPH insulin Anemia of renal disease: Iron saturation is about 13%. Follow-up with nephrology as outpatient. Hypertension Resumed home antihypertensives Hyperlipidemia: Continued home dose statin. Atrial fibrillation Stable. Continue Coreg. Resumed Eliquis on discharge. Vital Signs/Physical Exam: Temp Pulse Resp BP Pulse Ox 97.2 F 80 18 155/68 H 97 08/21/23 16:40 08/21/23 16:40 08/21/23 16:40 08/21/23 16:40 08/21/23 16:40 General: Alert, In no apparent distress, Oriented x3 HEENT: Mucous membr. moist/pink Neck: Supple, JVD not distended Respiratory: Clear to auscultation bilaterally, Normal air movement Cardiovascular: No edema, Regular rate/rhythm, Normal S1 S2 Gastrointestinal: Normal bowel sounds, Soft and benign, Non-distended, No tenderness Musculoskeletal: No swelling Integumentary: No rashes Neurological: Normal strength at 5/5 x4 extr Laboratory Data at Discharge: WBC 12.50 thou/uL (4.3-10.9) H 08/19/23 22:00 Hgb 10.2 g/dL (12.0-15.0) L 08/19/23 22:00 Hct 31.7 % (36.0-45.0) L 08/19/23 22:00 Plt Count 265 thou/uL (152-406) 08/19/23 22:00 Sodium 143 mEq/L (136-145) 08/21/23 06:38 Potassium 3.8 mEq/L (3.5-5.1) 08/21/23 06:38 BUN 93 mg/dL (7-18) H 08/21/23 06:38 Creatinine 2.67 mg/dL (0.55-1.02) H 08/21/23 06:38 Glucose 218 mg/dL (74-106) H 08/21/23 06:38 Uric Acid 6.2 mg/dL (2.6-6.0) H 08/21/23 06:38 Phosphorus 3.3 mg/dL (2.5-4.9) 08/21/23 06:38 Total Bilirubin 0.2 mg/dL (0.2-1.0) 08/19/23 22:00 AST 12 U/L (15-37) L 08/19/23 22:00 ALT 15 U/L (13-56) 08/19/23 22:00 Alkaline Phosphatase 119 U/L (45-117) H 08/19/23 22:00 Home Medications: Allopurinol 100 mg PO BID 06/23/20 Atorvastatin Calcium 20 mg PO BEDTIME 06/23/20 Carvedilol [Coreg] 25 mg PO BID 06/23/20 Cholecalciferol (Vitamin D3) [Vitamin D3] 3,000 unit PO DAILY 06/23/20 Ferrous Sulfate [Iron] 325 mg PO TID 06/23/20 Loratadine [Claritin*] 10 mg PO DAILY 06/23/20 Apixaban [Eliquis] 5 mg PO BID 01/01/23 Digoxin [Lanoxin*] 0.125 mg PO DAILY 01/01/23 Insulin Lispro [Humalog] See Rx Instructions .ROUTE .COMPLEX 01/13/23 Insulin NPH Human Isophane [Novolin N] 52 unit SQ BID 01/13/23 Liraglutide [Victoza 2-Meir] 1.8 units IN DAILY 01/13/23 Pantoprazole Sodium 40 mg PO BID 30 Days #60 tab 06/08/23 Furosemide [Lasix] 80 mg PO DAILY #30 tab 08/21/23 New Medications: Furosemide [Lasix] 80 mg PO DAILY #30 tab Diet: Renal (ADA) Activity: Ad jose Followup: Gabriela Mays MD [ACTIVE - CAN ADMIT] - 1-2 Weeks Time spent managing pt's care (in minutes): 36
== END 2023-08-21 19:17 | disposition home health service (06) | DRG 683 ==
LOC: 4TH 19:08
PROVIDERS: ADMIT Internal Medicine Nephrology; ATTEND Internal Medicine
DX: N17.9 Acute kidney failure, unspecified (principal); I13.0 Hypertensive heart and chronic kidney disease with heart failure and stage 1 through stage 4 chronic kidney disease, or unspecified chronic kidney disease; I50.22 Chronic systolic (congestive) heart failure; Z68.41 Body mass index [BMI] 40.0-44.9, adult; N18.4 Chronic kidney disease, stage 4 (severe); E11.22 Type 2 diabetes mellitus with diabetic chronic kidney disease; E11.40 Type 2 diabetes mellitus with diabetic neuropathy, unspecified; D63.1 Anemia in chronic kidney disease; D50.9 Iron deficiency anemia, unspecified; I48.91 Unspecified atrial fibrillation; E78.5 Hyperlipidemia, unspecified; E66.9 Obesity, unspecified; I25.10 Atherosclerotic heart disease of native coronary artery without angina pectoris; Z88.1 Allergy status to other antibiotic agents; Z95.0 Presence of cardiac pacemaker; Z79.4 Long term (current) use of insulin; Z79.02 Long term (current) use of antithrombotics/antiplatelets; Z79.01 Long term (current) use of anticoagulants; Z90.49 Acquired absence of other specified parts of digestive tract; Z85.42 Personal history of malignant neoplasm of other parts of uterus; Z79.899 Other long term (current) drug therapy; Z90.710 Acquired absence of both cervix and uterus
CPT/HCPCS: 36415; 71045; 80048; 80053; 80069; 81001; 82550; 82728; 82947; 83540; 83970; 84100; 84466; 84550; 85014; 85018; 85025; J1644; J1815; J2916; J7030; J7050; Q5106

== ENCOUNTER 2024-12-10 23:37 | Emergency (ER) | payer OTHER ==
--- OUTSIDE RECORDS SUMMARY | 2024-12-10 23:39 | XMS REPORT | Clinical Summary ---
Author Name Unknown Organization [facility] [place] Address [address] [place] [address] Care Team Providers Care Retail Cosmetics Sales Beauty Advisor Name Role Phone Daly Lynn MD Primary Care Provider + [phone] Faraz Bueno "Tarsha" Unavailable [phone] Faraz Bueno "Tarsha" Unavailable [phone] Jori Lynn MD Unavailable Allergies Active Allergy Reactions Criticality Noted Date Comments Amoxicillin Itching Low 08/06/2016 Sulfamethoxazole-Trimethoprim Itching Low 2015 Medications carvedilol (COREG) 25 mg tablet Take 25 mg by mouth twice daily. Active furosemide (LASIX) 40 mg tablet Take 40 mg by mouth twice daily. 40mg in AM, 20mg in PM daily Active INSULIN NPH HUMAN ISOPHANE (NOVOLIN N SUBCUTANEOUS) Inject 45 Units under the skin twice daily. 45 units in AM and 40 units at bedtime Active LIRAGLUTIDE (VICTOZA 2-TRENA SUBCUTANEOUS) Inject 1.8 mg under the skin daily. Active cholecalciferol , vitamin D3, (VITAMIN D3) 2,000 units tab tablet Take 2,000 Units by mouth daily. Active apixaban (ELIQUIS) 2.5 mg tablet Take 2.5 mg by mouth twice daily. Active cloNIDine HCl (CATAPRES) 0.2 mg tablet Take 0.2 mg by mouth twice daily. Active ferrous gluconate (FERGON) 325 mg tablet Take 37 mg by mouth daily with breakfast. Active atorvastatin (LIPITOR) 20 mg tablet Take 20 mg by mouth daily. Active spironolactone (ALDACTONE) 25 mg tablet Take 1 tablet by mouth 3 (three) times a week Thursday, Thursday and Thursday. 0 7 Active allopurinol (ZYLOPRIM) 100 mg tablet Take 100 mg by mouth daily. Active amiodarone (PACERONE) 200 mg tablet Take 200 mg by mouth daily. Active fluticasone (FLONASE) 50 mcg/spray nasal spray Inhale 1 spray into each nostril daily. Active loratadine (CLARITIN) 10 mg tablet Take 10 mg by mouth daily. Active nystatin (MYCOSTATIN) 100,000 units/g powderIndicatio ns:Malignant neoplasm of endometrium,Silas al impairment,Cand idiasis of skin Apply topically to affected area(s) twice daily. 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 6 Sleep apnea 08/07/2016 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/06/2016 Cancer Staging:Clinical stage from 08/25/2016:Stage IA(Primary) - Signed by Daly Lynn MD on 08/29/2016 Atrial fibrillation 08/06/2016 Diabetes mellitus 08/06/2016 Surgical History Surgery Date Site/Laterality Comments COLONOSCOPY Normal HYSTEROSCOPY 05/03/2016 TUBAL LIGATION Bilateral PA LAPAROSCOPY TOT HYSTERECTOMY >250 G W/TUBE/OVAR 08/15/2016 N/A Procedure: ROBOTIC ASSISTED TOTAL HYSTERECTOMY; Surgeon: Daly Lynn MD; Location: MAIN OR; Service: GIS SOFTWARE ENGINEER - GYNECOLOGIC ONCOLOGY PA SALPINGO-OOPHORECTOMY COMPL/PRTL UNI/BI SPX 08/15/2016 Bilateral Procedure: ROBOTIC ASSISTED SALPINGO-OOPHORECTOMY; Surgeon: Daly Lynn MD; Location: MAIN OR; Service: GIS SOFTWARE ENGINEER - GYNECOLOGIC ONCOLOGY PA INTRAOP SENTINEL LYMPH NODE ID W/DYE INJECTION 08/15/2016 Bilateral Procedure: INTRAOPERATIVE LYMPHATIC MAPPING; ROBOTIC SENTINEL LYMPH NODE MAPPING AND LYMPH NODE BIOPSY; Surgeon: Daly Lynn MD; Location: MAIN OR; Service: GIS SOFTWARE ENGINEER - GYNECOLOGIC ONCOLOGY Medical History Medical History [...] drink = 0.6 oz pur e alcohol) Comments No Sex and Gender Information Value Date Recorded Sex Assigned at Not on file Legal Sex 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 Mammogram: last this year, denies abnormal. 2) HRT:denies Plan of Treatment Health Maintenance Due Date Last Done Comments Pneumococcal Vaccine: 50+ Years (1 of 1 - PCV) 003 COVID-19 Vaccine (2023- season) 2024 Influenza Vaccine (#1) 2024 Insurance MEDICARE PART A AND B MEDICARE SUPPLEMENT MEDICARE PART A AND B MEDICARE SUPPLEMENT MEDICARE PART A AND B [facility] MEDICARE SUPPLEMENT Advance Directives * Full Code (Latest Code Status on File) Date Activated Date Inactivated Comments 08/15/2016 10:41 AM 08/16/2016 1:29 PM Care Teams Retail Cosmetics Sales Beauty Advisor Relationship Specialty Start Date End Date Daly Lynn MD [email or web address] PCP - General Gynecologic Medical Oncology 07/22/16 Faraz Bueno MD (Mini) [email or web address] PCP - External Referring Obstetrics/Gynecology 01/26/17 Faraz Bueno MD (Mini) [email or web address] PCP - External Follow Up A Obstetrics/Gynecology 01/26/17 Jori Lynn MD [address] [place] [address] [email or web address] Consulting Physician Internal Medicine 08/13/16
[2024-12-11] MEDS ORDERED: PANTOPRAZOLE 40 MG INJ ONE (00:21)
[2024-12-11] MEDS ORDERED: MORPHINE 2 MG/ML SYR ONE ×2 (00:21→01:16)
[2024-12-11] MEDS ORDERED: ONDANSETRON 4 MG/2 ML VIAL ONE (00:21)
[2024-12-11 00:44] LABS: PT Prothrombin Time 19.5 SECONDS (10-13.0); Protime INR 1.76
[2024-12-11 00:45] LABS: Absolute Basophils 0.1 K/uL (0-0.5); Absolute Eosinophils 0.2 K/uL (0-0.5); Absolute Lymphocytes (CBC) 0.8 K/uL (0.7-4.9); Absolute Monocytes 1.1 K/uL (0.1-1.3); Absolute Neutrophil 14.5 K/uL (1.8-8.0); Basophils % 0.4 % (0-1.3); Eosinophils % 0.9 % (0-4.4); Hematocrit 31.7 % (36.0-45.0); Hemoglobin 10.3 g/dL (12.0-15.0); Lymphocytes % 4.7 % (15.3-44.8); MCH 32.1 pg (27.0-35.0); MCHC 32.6 g/dL (32.0-36.0); MCV 98.5 fL (80-100); MPV 7.4 fL (7.6-11.3); Monocytes % 6.9 % (3.3-12.3); Neutrophils % 87.1 % (41.7-73.7); Nucleated Red Blood Cells % 0.2 % (0-0); Platelets 317 thou/uL (152-406); RBC Red Blood Cell Count 3.22 M/uL (3.86-4.86); Red Cell Distribution Width 16.2 % (12.1-15.2)
[2024-12-11 01:21] LABS: Band Neutrophils 8 % (0-1); Blood Morphology Comment NOTED (NOT SEEN); Differential Total Cells Count 100; Eosinophils 1 % (0-3); Lymphocytes 4 % (15-42); Monocytes 9 % (0-10); Platelet Estimate ADEQ; Polychromasia SLIGHT; Segmented Neutrophils 77 % (40-80)
[2024-12-11 01:27] LABS: ALT/SGPT 18 U/L (13-56); Albumin 2.9 g/dL (3.4-5.0); Albumin/Globulin Ratio 0.6 (1.1-1.8); Alkaline Phosphatase 173 U/L (45-117); Anion Gap 15.1 mEq/L (5.0-15.0); BUN Blood Urea Nitrogen 24 mg/dL (7-18); Bicarbonate 29 mEq/L (21-32); Bilirubin Total 0.4 mg/dL (0.2-1.0); Globulin 4.7 g/dL (2.3-3.5); Glomerular Filtration Rate 10 ml/min (=/>90); Glucose Level 200 mg/dL (74-106); Lipase 22 U/L (13-75); Protein, Total 7.6 g/dL (6.4-8.2); Sodium Level 136 mEq/L (136-145)
[2024-12-11 01:28] LABS: Potassium 4.1 mEq/L (3.5-5.1)
[2024-12-11 01:29] LABS: AST/SGOT 15 U/L (15-37); Bilirubin Direct < 0.2 mg/dL (0-0.2); Bilirubin Indirect, Calculated 0.2 mg/dL (0.2-0.8); Magnesium 2.1 mg/dL (1.6-2.4)
--- NOTE | 2024-12-11 02:14 | RAD REPORT ---
EXAM: XR Chest, 1 View CLINICAL HISTORY: The patient is 74 years old and is Female; epigastric pain TECHNIQUE: Frontal view of the chest. COMPARISON: XR Chest dated October 14 2023 FINDINGS: LUNGS: Unremarkable. No consolidation. PLEURAL SPACE: Unremarkable. No pneumothorax. HEART: Unremarkable. No cardiomegaly. MEDIASTINUM: Unremarkable. Normal mediastinal contour. BONES/JOINTS: Multilevel degenerative change of the spine is present. No acute fracture. VASCULATURE: Atherosclerosis of the aorta is present. A graft within the left axilla is present . TUBES, LINES AND DEVICES: Left-sided pacemaker is noted. UPPER ABDOMEN: Unremarkable as visualized. IMPRESSION: No acute cardiopulmonary process. Electronically signed by: Rocío Jimenez MD 12/11/2024 01:51 AM CDT RP Due to temporary technical issues with the PACS/[employer] reporting system, reports are being justin d by the in-house radiologist without review as a courtesy to ensure prompt reporting the interpreting radiologist is fully responsible for the content of the report. Transcribed Date/Time: 12/11/2024 2:13 AM
[2024-12-11 03:29] LABS: NT PRO-BNP 24185 pg/mL (<125); Troponin High Sensitivity 56.6 pg/mL (<58.9)
--- NOTE | 2024-12-11 03:57 | RAD REPORT ---
EXAM: CT Abdomen and Pelvis Without Intravenous Contrast CLINICAL HISTORY: EPIGASTRIC PAIN TECHNIQUE: Axial computed tomography images of the abdomen and pelvis without intravenous contrast. Sagittal a nd coronal reformatted images were created and reviewed. This CT exam was performed using one or more of the following dose reduction techniques: automated exposure control, adjustment of the mA a nd/or kV according to patient size, and/or use of iterative reconstruction technique. COMPARISON: No relevant prior studies available. FINDINGS: Lung bases: Unremarkable. No mass. No consolidation. ABDOMEN: Liver: The liver is enlarged. Left hepatic portal venous gas. Gallbladder and bile ducts: Layering gallstones. No gallbladder wall thickening or pericholecystic fluid. No ductal dilation. Pancreas: Mild pancreatic parenchymal atrophy. No ductal dilation. Spleen: Unremarkable. No splenomegaly. Adrenals: Mild left adrenal thickening. Kidneys and ureters: Mild bilateral renal atrophy. No calculi. No hydronephrosis. Stomach and bowel: Moderate stool. No bowel obstruction. Mild gastric wall thickening with areas of pneumatosis. PELVIS: Appendix: Normal caliber appendix. No findings to suggest acute appendicitis. Bladder: The urinary bladder is decompressed. No stones. Reproductive: There has been a hysterectomy. No adnexal cysts or masses are identified. ABDOMEN and PELVIS: Intraperitoneal space: Unremarkable. No free air. No significant fluid collection. Bones/joints: Multilevel spondylosis. No acute fracture. No dislocation. Soft tissues: Unremarkable. Vasculature: Minimal left upper quadrant mesenteric venous gas. Severe atherosclerotic disease. N o abdominal aortic aneurysm. Lymph nodes: Unremarkable. No enlarged lymph nodes. IMPRESSION: 1. Findings compatible with mesenteric ischemia. Mild gastric wall thickening with areas of pneumat osis. 2. Other findings as above. THIS REPORT CONTAINS FINDINGS THAT MAY BE CRITICAL TO PATIENT CARE: The findings were verbally discus sed via telephone conference with Frankie Jansen, PAC on 12/11/2024 3:41 AM CDT. The results were acknowledged and understood. Electronically signed by: Tashia Fitzgerald MD 12/11/2024 03:45 AM CDT RP Due to temporary technical issues with the PACS/[employer] reporting system, reports are being justin d by the in-house radiologist without review as a courtesy to ensure prompt reporting the interpreting radiologist is fully responsible for the content of the report. Transcribed Date/Time: 12/11/2024 3:56 AM
--- NOTE | 2024-12-11 03:58 | ER ---
Nurse's Notes [facility] Name: Nhung Munson Age: 74 yrs Sex: Female : 1950 Arrival Date: 12/10/2024 Time: 23:37 Bed 7 Private MD: Diagnosis: Epigastric pain;Nausea with vomiting, unspecified;Mesenteric Ischemia with Pneumatosis;Mesenteric Ischemia with Pneumatosis STOMACH;End stage renal disease;Abdominal tenderness-VENOUS PORTAL GAS Presentation: 12/10 23:42 Chief complaint: Patient states: EPIGASTRIC PAIN BEGAN BEFORE SHE WENT TO DIALYSIS br2 TODAY. THREW UP BEFORE AND AFTER DIALYSIS. Coronavirus screen: Client denies travel out of the [place] in the last 14 days. Ebola Screen: Patient denies exposure to infectious person. Initial Sepsis Screen: Does the patient meet any 2 criteria? No. Patient's initial sepsis screen is negative. Does the patient have a suspected source of infection? No. Patient's initial sepsis screen is negative. Risk Assessment: Do you want to hurt yourself or someone else? Patient reports no desire to harm self or others. Onset of symptoms was December 10, 2024. 23:42 Method Of Arrival: EMS: [facility] br2 23:42 Acuity: BACILIO 3 br2 Triage Assessment: 23:44 General: Appears in no apparent distress. comfortable, Behavior is calm, cooperative. br2 Pain: Complains of pain in diaphragm and xiphoid area Pain currently is 8 out of 10 on a pain scale. GI: Reports epigastric pain, nausea, vomiting, since BEFORE DIAYSIS. Historical: - Allergies: 23:44 Amoxicillin; br2 23:44 Bactrim DS; br2 23:44 Demerol; br2 - PMHx: 23:44 Atrial Fib; cellulitis left lower extremity (Renal Problems); Diabetes - IDDM; High br2 Cholesterol; Hypertension; End stage renal disease; Gout; - Immunization history:: Adult Immunizations up to date. - Infectious Disease History:: Denies. - Social history:: Smoking status: Patient denies any tobacco usage or history of. Patient/guardian denies using alcohol, street drugs. Screenin/06 00:09 [facility] ED Fall Risk Assessment (Adult) History of falling in the last 3 months, al5 including since admission No falls in past 3 months (0 pts) Confusion or Disorientation No (0 pts) Intoxicated or Sedated No (0 pts) Impaired Gait Yes (1 pt) Mobility Assist Device Used Yes (1 pt) Altered Elimination Yes (1 pt) Score/Fall Risk Level 3 or more points = High Risk Oriented to surroundings, Maintained a safe environment, Hourly rounding (assess needs \T\ fall precautionary measures) done, Used ambulatory aids as needed (educated on \T\ assisted with). Abuse screen: Denies threats or abuse. Denies injuries from another. Nutritional screening: No deficits noted. Tuberculosis screening: No symptoms or risk factors identified. Assessment: 00:08 General: Appears in no apparent distress. comfortable, Behavior is calm, cooperative. al5 Pain: Denies pain. Neuro: Level of Consciousness is awake, alert, obeys commands, Oriented to person, place, time, situation. Cardiovascular: Capillary refill < 3 seconds Patient's skin is warm and dry. Respiratory: Airway is patent Respiratory effort is even, unlabored, Respiratory pattern is regular, symmetrical. GI: Abdomen is round Bowel sounds present X 4 quads. Abd is soft X 4 quads Abdomen is tender to palpation in epigastric area Reports upper abdominal pain, nausea, vomiting. : No signs and/or symptoms were reported regarding the genitourinary system. Reports patient anuric due to ESRD. EENT: No signs and/or symptoms were reported regarding the EENT system. Derm: Skin is intact, Skin is pink, warm \T\ dry. normal. Musculoskeletal: No signs and/or symptoms reported regarding the musculoskeletal system. 01:02 Reassessment: Patient appears in no apparent distress at this time. Patient and/or al5 family updated on plan of care and expected duration. Pain level reassessed. Patient is alert, oriented x 3, equal unlabored respirations, skin warm/dry/pink. no episodes of vomiting since arrival. 03:04 Reassessment: Patient appears in no apparent distress at this time. Patient and/or al5 family updated on plan of care and expected duration. Pain level reassessed. Patient is alert, oriented x 3, equal unlabored respirations, skin warm/dry/pink. Patient states feeling better. Patient states symptoms have improved. 04:24 Reassessment: Patient appears in no apparent distress at this time. No changes from al5 previously documented assessment. Patient and/or family updated on plan of care and expected duration. Pain level reassessed. Patient is alert, oriented x 3, equal unlabored respirations, skin warm/dry/pink. spoke with patient helga and updated him on patient care and plan of care. phone number : [phone]. 05:00 Reassessment: Patient appears in no apparent distress at this time. No changes from al5 previously documented assessment. Patient and/or family updated on plan of care and expected duration. Pain level reassessed. Patient is alert, oriented x 3, equal unlabored respirations, skin warm/dry/pink. 06:40 Reassessment: Patient appears in no apparent distress at this time. No changes from al5 previously documented assessment. Patient and/or family updated on plan of care and expected duration. Pain level reassessed. Patient is alert, oriented x 3, equal unlabored respirations, skin warm/dry/pink. 07:30 General: Appears in no apparent distress. comfortable, Behavior is calm, cooperative. ph Pain: Denies pain. Neuro: Level of Consciousness is awake, alert, obeys commands, Oriented to person, place, time, situation. Cardiovascular: Capillary refill < 3 seconds Patient's skin is warm and dry. Cardiovascular: Dialysis shunt: in the left bicep, with palpable thrill, with auscultated bruit, with no erythema, with no edema, no bleeding noted. Respiratory: Airway is patent Respiratory effort is even, unlabored. Musculoskeletal: Circulation, motion, and sensation intact. Range of motion: intact in all extremities. 09:02 Reassessment: report called to JAZMYN Khan at [facility]. ph 10:00 Reassessment: Patient appears in no apparent distress at this time. Patient and/or ph family updated on plan of care and expected duration. Pain level reassessed. Patient is alert, oriented x 3, equal unlabored respirations, skin warm/dry/pink. Vital Signs: 12/10 23:42 BP 137 / 48; Pulse 70; Resp 18; Temp 97.5(TE); Pulse Ox 99% on R/A; Weight 95.25 kg; br2 Height 5 ft. 3 in. ; Pain 8/10; 23:45 BP 145 / 48; Pulse 69; Resp 16; Pulse Ox 98% ; al5 12/11 00:00 BP 154 / 47; Pulse 69; Resp 18; Pulse Ox 100% ; al5 00:30 BP 123 / 52; Pulse 70; Resp 14; Pulse Ox 98% ; al5 01:00 BP 127 / 52; Pulse 70; Resp 17; Pulse Ox 96% ; al5 01:20 BP 123 / 45; Pulse 70; Resp 16; Pulse Ox 97% ; jj7 01:30 BP 116 / 61; Pulse 70; Resp 15; Pulse Ox 97% ; al5 02:00 BP 124 / 54; Pulse 70; Resp 16; Pulse Ox 98% ; al5 02:30 BP 124 / 58; Pulse 70; Resp 15; Pulse Ox 98% ; al5 03:00 BP 118 / 53; Pulse 71; Resp 16; Pulse Ox 99% ; al5 03:30 BP 104 / 48; Pulse 69; Resp 16; Pulse Ox 97% ; al5 04:00 BP 122 / 56; Pulse 70; Resp 17; Pulse Ox 100% ; al5 04:30 BP 122 / 69; Pulse 69; Resp 15; Pulse Ox 99% ; al5 05:00 BP 109 / 64; Pulse 70; Resp 14; Pulse Ox 97% ; al5 05:30 BP 119 / 47; Pulse 70; Resp 14; Pulse Ox 96% ; al5 06:00 BP 123 / 48; Pulse 71; Resp 15; Pulse Ox 99% ; al5 06:30 BP 113 / 43; Pulse 72; Resp 15; Pulse Ox 99% ; al5 07:30 BP 105 / 53; Pulse 70; Resp 18; Pulse Ox 98% on R/A; ph 08:15 BP 119 / 52; Pulse 71; Resp 18; Pulse Ox 97% on R/A; ph 09:00 BP 110 / 57; Pulse 70; Resp 18; Temp 98.1; Pulse Ox 96% on R/A; ph 10:00 BP 107 / 54; Pulse 72; Resp 18; Pulse Ox 98% on R/A; ph 12/10 23:42 Body Mass Index 37.20 (95.25 kg, 160.02 cm) br2 12/10 23:42 Pain Scale: Adult br2 ED Course: 12/10 23:41 Patient arrived in ED. br2 23:44 Triage completed. br2 23:44 Arm band placed on right wrist. br2 12/11 00:01 Page, Frankie, PA is PHCP. cp 00:01 Frankie Cummings MD is Attending Physician. cp 00:10 Viki Chen, JAZMYN is Primary Nurse. al5 00:10 Patient has correct armband on for positive identification. Bed in low position. Call al5 light in reach. Side rails up X2. Provided Education on: plan of care. 00:10 No provider procedures requiring assistance completed. Inserted saline lock: 22 gauge al5 in right antecubital area, using aseptic technique. Blood collected. Flushed with 10 mL NS. 00:13 Initial lab(s) drawn, by ED staff, sent to lab. sa1 00:13 Basic Metabolic Panel Sent. sa1 00:13 CBC with Diff Sent. sa1 00:13 LFT's Sent. sa1 00:13 Magnesium Sent. sa1 00:13 NT PRO-BNP Sent. sa1 00:13 PT-INR Sent. sa1 00:13 Troponin HS Sent. sa1 00:53 X-ray completed. Portable x-ray completed in exam room. Patient tolerated procedure mh1 well. 00:57 XRAY Chest (1 view) In Process Unspecified. EDMS 02:46 CT Abd/Pelvis - Without Contrast In Process Unspecified. EDMS 04:43 called [facility] for Transfer talked Nimo. sp 05:52 CT Abdomen - Angio In Process Unspecified. EDMS 05:52 CT Pelvis Angio In Process Unspecified. EDMS 07:12 daughter Shante called and would like to be called once we find out where she will be eb going her cell number is [phone]. 07:26 called and spoke with [facility] to update new CT results. eb 08:15 administrative approval given by Deja Perez/ patient has been accepted to [facility] 21 tower room 211/ Dr. Marylou Reyes has accepted the patient in transfer report to be called to [phone]. 11:01 Patient transferred, IV remains in place. ph Administered Medications: 00:27 Drug: Ondansetron IVP 4 mg IVP once; over 2 minutes Route: IVP; Site: right antecubital;al5 01:09 Follow up: Response: No adverse reaction; Nausea is decreased al5 00:27 Drug: Pantoprazole IVP 40 mg IVP once Route: IVP; Site: right antecubital; al5 01:09 Follow up: Response: No adverse reaction al5 00:27 Drug: morphine IVP or IV 2 mg IVP once over 4 mins Route: IVP; Infused Over: 4 mins; al5 Site: right antecubital; 01:09 Follow up: Response: No adverse reaction; No adverse reaction; pain decreased down to al5 01/14 01:16 Drug: morphine IVP or IV 2 mg IVP once over 4 mins Route: IVP; Infused Over: 4 mins; al5 Site: right antecubital; 03:04 Follow up: Response: No adverse reaction; Pain is decreased al5 04:19 Drug: NS 0.9% IV 250 ml IV at calculated rate once; to be given as a bolus over 45 al5 minutes Route: IV; Rate: calculated rate; Site: right antecubital; 05:01 Follow up: Response: No adverse reaction; IV Status: Completed infusion; IV Intake: al5 250ml 04:19 Drug: Meropenem IV 1 grams IV at calculated rate once; (mix in NS 100 mL) Route: IV; al5 Rate: calculated rate; Site: right antecubital; 05:01 Follow up: Response: No adverse reaction; IV Status: Completed infusion; IV Intake: al5 100ml 05:01 Drug: vancoMYCIN IVPB 1 grams IVPB once over 2 hrs Route: IVPB; Infused Over: 2 hrs; al5 Site: right antecubital; 06:41 Follow up: Response: No adverse reaction; IV Status: Completed infusion; IV Intake: al5 250ml Medication: 00:09 VIS not applicable for this client. al5 Intake: 05:01 IV: 250ml; Total: 250ml. al5 05:01 IV: 100ml; Total: 350ml. al5 06:41 IV: 250ml; Total: 600ml. al5 Outcome: 03:57 ER care complete, transfer ordered by MD. queen 11:00 Transferred by [facility]. to [facility], [facility], Transfer form ph completed. X-rays sent w/ patient. 11:00 Condition: good 11:00 Instructed on the need for transfer, 11:02 Patient left the ED. ph Signatures: Dispatcher [employer] EDMS Judi Salamanca [facility] Taylor Gonzales, RN RN ph Page, JIMBO David cp, Elizabeth eb Johnson, Juwairiyah RN RN jj7 Viki Chen RN RN al5 Thuan, 1 Amber Patel RN RN br2
--- NOTE | 2024-12-11 03:58 | EDPHYS ---
Physician Documentation [facility] Name: Nhung Munson Age: 74 yrs Sex: Female : 1950 Arrival Date: 12/10/2024 Time: 23:37 Bed 7 Private MD: ED Physician Frankie Cummings HPI: 12/11 00:05 This 74 yrs old Female presents to ER via EMS with complaints of Abdominal Pain, cp Nausea/Vomiting. 00:05 The patient presents with abdominal pain in the epigastric area. Onset: The cp symptoms/episode began/occurred today. Associated signs and symptoms: Pertinent positives: nausea and vomiting. 00:05 The symptoms are described as constant. cp 00:05 Severity of pain: in the emergency department the pain is unchanged despite EMS cp interventions. Historical: - Allergies: 12/10 23:44 Amoxicillin; br2 23:44 Bactrim DS; br2 23:44 Demerol; br2 - PMHx: 23:44 Atrial Fib; cellulitis left lower extremity (Renal Problems); Diabetes - IDDM; High br2 Cholesterol; Hypertension; End stage renal disease; Gout; - Immunization history:: Adult Immunizations up to date. - Infectious Disease History:: Denies. - Social history:: Smoking status: Patient denies any tobacco usage or history of. Patient/guardian denies using alcohol, street drugs. ROS: 12/11 00:10 Constitutional: Negative for body aches, chills, fever, poor PO intake, cp 00:10 Eyes: Negative for injury, pain, redness, and discharge, cp 00:10 ENT: Negative for drainage from ear(s), ear pain, sore throat, difficulty swallowing, difficulty handling secretions, 00:10 Cardiovascular: Negative for chest pain, edema, palpitations, 00:10 Respiratory: Negative for cough, shortness of breath, wheezing, 00:10 Abdomen/GI: Positive for abdominal pain, nausea, vomiting, of the epigastric area, Negative for diarrhea, constipation, 00:10 Neuro: Negative for altered mental status, dizziness, headache, weakness, 00:10 All other systems are negative, Exam: 00:15 Constitutional: The patient appears in no acute distress, alert, awake, cp non-diaphoretic, non-toxic, well developed, well nourished, obese, uncomfortable, 00:15 Head/Face: Normocephalic, atraumatic. cp 00:15 Eyes: Periorbital structures: appear normal, Conjunctiva: normal, no exudate, no injection, Sclera: no appreciated abnormality, Lids and lashes: appear normal, bilaterally, 00:15 ENT: External ear(s): are unremarkable, Nose: is normal, Mouth: Lips: moist, Oral mucosa: pink and intact, moist, Posterior pharynx: Airway: no evidence of obstruction, patent, 00:15 Chest/axilla: Inspection: normal, 00:15 Cardiovascular: Rate: normal, Rhythm: regular, Edema: ankle edema, that is mild, JVD: is not appreciated, 00:15 Respiratory: the patient does not display signs of respiratory distress, Respirations: normal, no use of accessory muscles, no retractions, labored breathing, is not present, Breath sounds: are clear throughout, no decreased breath sounds, no stridor, no wheezing, 00:15 Abdomen/GI: Inspection: abdomen appears normal, Bowel sounds: active, all quadrants, Palpation: soft, in all quadrants, severe abdominal tenderness, in the epigastric area, rebound tenderness, is not appreciated, voluntary guarding, is elicited in the epigastric area, 00:15 Back: CVA tenderness, is absent, 00:15 Skin: no rash present. 00:15 Neuro: Orientation: to person, place \T\ time. Mentation: is normal, Motor: moves all fours, strength is normal, 00:22 ECG was reviewed by the Attending Physician. cp Vital Signs: 12/10 23:42 BP 137 / 48; Pulse 70; Resp 18; Temp 97.5(TE); Pulse Ox 99% on R/A; Weight 95.25 kg; br2 Height 5 ft. 3 in. ; Pain 8/10; 23:45 BP 145 / 48; Pulse 69; Resp 16; Pulse Ox 98% ; al5 0406 00:00 BP 154 / 47; Pulse 69; Resp 18; Pulse Ox 100% ; al5 00:30 BP 123 / 52; Pulse 70; Resp 14; Pulse Ox 98% ; al5 01:00 BP 127 / 52; Pulse 70; Resp 17; Pulse Ox 96% ; al5 01:20 BP 123 / 45; Pulse 70; Resp 16; Pulse Ox 97% ; jj7 01:30 BP 116 / 61; Pulse 70; Resp 15; Pulse Ox 97% ; al5 02:00 BP 124 / 54; Pulse 70; Resp 16; Pulse Ox 98% ; al5 02:30 BP 124 / 58; Pulse 70; Resp 15; Pulse Ox 98% ; al5 03:00 BP 118 / 53; Pulse 71; Resp 16; Pulse Ox 99% ; al5 03:30 BP 104 / 48; Pulse 69; Resp 16; Pulse Ox 97% ; al5 04:00 BP 122 / 56; Pulse 70; Resp 17; Pulse Ox 100% ; al5 04:30 BP 122 / 69; Pulse 69; Resp 15; Pulse Ox 99% ; al5 05:00 BP 109 / 64; Pulse 70; Resp 14; Pulse Ox 97% ; al5 05:30 BP 119 / 47; Pulse 70; Resp 14; Pulse Ox 96% ; al5 06:00 BP 123 / 48; Pulse 71; Resp 15; Pulse Ox 99% ; al5 06:30 BP 113 / 43; Pulse 72; Resp 15; Pulse Ox 99% ; al5 07:30 BP 105 / 53; Pulse 70; Resp 18; Pulse Ox 98% on R/A; ph 08:15 BP 119 / 52; Pulse 71; Resp 18; Pulse Ox 97% on R/A; ph 09:00 BP 110 / 57; Pulse 70; Resp 18; Temp 98.1; Pulse Ox 96% on R/A; ph 10:00 BP 107 / 54; Pulse 72; Resp 18; Pulse Ox 98% on R/A; ph 04/05 23:42 Body Mass Index 37.20 (95.25 kg, 160.02 cm) br2 12/10 23:42 Pain Scale: Adult br2 MDM: 00:01 Medical Screening Exam initiated cp 04:00 Data reviewed: vital signs, nurses notes, lab test result(s), EKG, radiologic studies, cp CT scan, plain films, and as a result, I will transfer patient. 04:00 Independent interpretation of the following test(s) in the Emergency Department EKG: cp See my EKG interpretation above. 05:14 ED course: consult with vascular at [facility] who requests CT angio abdomen. cp 12/11 00:02 Order name: Basic Metabolic Panel; Complete Time: 03:48 cp 12/11 01:40 Interpretation: Normal except: CL 96; ANION GAP 15.1; GLUC 200; BUN 24; CRE 4.45; GFR cp 10. 04/06 00:02 Order name: CBC with Diff; Complete Time: 01:25 cp 12/11 01:26 Interpretation: Normal except: WBC 16.70; RBC 3.22; HGB 10.3; HCT 31.7; RDW 16.2; MPV cp 7.4; TRUE% 87.1; LYM% 4.7; NEUT A 14.5. 04/ 00:02 Order name: LFT's; Complete Time: 03:48 cp / 03:49 Interpretation: Normal except: ALK 173; ALB 2.9; GLOB 4.7; A/G 0.6. cp 04/ 00:02 Order name: Magnesium; Complete Time: 03:48 cp 12/11 00:02 Order name: NT PRO-BNP; Complete Time: 03:48 cp 12/11 03:49 Interpretation: Abnormal: NT PRO-BNP 96060. cp / 00:02 Order name: PT-INR; Complete Time: 01:25 cp 12/11 01:26 Interpretation: Normal except: PT 19.5. cp 04/ 00:02 Order name: Troponin HS; Complete Time: 03:48 cp 12/11 00:02 Order name: Lipase; Complete Time: 03:48 cp / 01:41 Interpretation: LIP 22; Reviewed. cp 12/11 00:49 Order name: Manual Differential; Complete Time: 01:25 EDMS 04 01:26 Interpretation: Normal except: BANDS [F] 8; LYM 4. cp / 03:51 Order name: Lactate w/ 2H reflex if indic.; Complete Time: 04:42 cp / 04:43 Interpretation: Reviewed. cp 04/ 03:51 Order name: Blood Culture Adult (2) cp / 00:02 Order name: XRAY Chest (1 view); Complete Time: 03:48 cp / 01:42 Order name: CT Abd/Pelvis - Without Contrast; Complete Time: 03:58 cp 12/11 05:11 Order name: CT Abdomen - Angio; Complete Time: 08:27 cp 12/11 05:28 Order name: CT Pelvis Angio; Complete Time: 08:27 cp 12/11 00:02 Order name: Cardiac monitoring; Complete Time: 00:19 cp 04/ 00:02 Order name: EKG - Nurse/Tech; Complete Time: 00:19 cp 04/ 00:02 Order name: IV Saline Lock; Complete Time: 00:07 cp 12/11 00:02 Order name: Labs collected and sent; Complete Time: 00:07 cp 04/ 00:02 Order name: O2 Per Protocol; Complete Time: 00:07 cp 04 00:02 Order name: O2 Sat Monitoring; Complete Time: 00:07 cp EC:22 Rate is 70 beats/min. Rhythm is regular, Paced. QRS interval is prolonged at 172 msec. cp QT interval is normal. T waves are Inverted in leads I, aVL, aVR. Interpreted by me. Reviewed by me. Administered Medications: 00:27 Drug: Ondansetron IVP 4 mg IVP once; over 2 minutes Route: IVP; Site: right antecubital;al5 01:09 Follow up: Response: No adverse reaction; Nausea is decreased al5 00:27 Drug: Pantoprazole IVP 40 mg IVP once Route: IVP; Site: right antecubital; al5 01:09 Follow up: Response: No adverse reaction al5 00:27 Drug: morphine IVP or IV 2 mg IVP once over 4 mins Route: IVP; Infused Over: 4 mins; al5 Site: right antecubital; 01:09 Follow up: Response: No adverse reaction; No adverse reaction; pain decreased down to al5 5/10 01:16 Drug: morphine IVP or IV 2 mg IVP once over 4 mins Route: IVP; Infused Over: 4 mins; al5 Site: right antecubital; 03:04 Follow up: Response: No adverse reaction; Pain is decreased al5 04:19 Drug: NS 0.9% IV 250 ml IV at calculated rate once; to be given as a bolus over 45 al5 minutes Route: IV; Rate: calculated rate; Site: right antecubital; 05:01 Follow up: Response: No adverse reaction; IV Status: Completed infusion; IV Intake: al5 250ml 04:19 Drug: Meropenem IV 1 grams IV at calculated rate once; (mix in NS 100 mL) Route: IV; al5 Rate: calculated rate; Site: right antecubital; 05:01 Follow up: Response: No adverse reaction; IV Status: Completed infusion; IV Intake: al5 100ml 05:01 Drug: vancoMYCIN IVPB 1 grams IVPB once over 2 hrs Route: IVPB; Infused Over: 2 hrs; al5 Site: right antecubital; 06:41 Follow up: Response: No adverse reaction; IV Status: Completed infusion; IV Intake: al5 250ml Disposition: 12/12 02:08 Co-signature as Attending Physician, Frankie Cummings MD I agree with the assessment and shailesh plan of care. Disposition Summary: 12/11/24 03:57 Transfer Ordered Notes: Transfer Location: [facility] cp Reason: Higher level of care cp Condition: Fair cp Problem: new cp Symptoms: have improved cp Accepting Physician: doctor(12/11/24 11:02) ph Diagnosis - Epigastric pain cp - Nausea with vomiting, unspecified cp - Mesenteric Ischemia with Pneumatosis cp - Mesenteric Ischemia with Pneumatosis STOMACH shailesh - End stage renal disease shailesh - Abdominal tenderness - VENOUS PORTAL GAS shailesh Forms: - Medication Reconciliation Form cp - SBAR form cp Signatures: Dispatcher [employer] EDFrankie Terrell MD MD cha Hall, Patricia, RN RN ph Frankie Jansen PA PA cp Francoise Esquivel MD MD sp3 Viki Chen RN RN al5 Amber Patel RN RN br2 Corrections: (The following items were deleted from the chart) 12/11 00:03 00:03 BASIC METABOLIC PANEL+C.LAB.BRZ ordered. EDMT EDMS 00: 00:03 CBC+H.LAB.BRZ ordered. EDMT EDMS 00:03 00:03 HEPATIC FUNCTION+C.LAB.BRZ ordered. EDMT EDMS 00:03 00:03 MAGNESIUM+C.LAB.BRZ ordered. EDMT EDMS 00:03 00:03 PROBNP+C.LAB.BRZ ordered. EDMT EDMS 00:03 00:03 PROTIME (+INR)+COAG.LAB.BRZ ordered. EDMT EDMS 00:03 00:03 Troponin High Sensitivity+C.LAB.BRZ ordered. EDMT EDMS 00:03 00:03 LIPASE+C.LAB.BRZ ordered. EDMT EDMS 00:03 00:03 Chest Single View+RAD.RAD.BRZ ordered. EDMS EDMS 01:41 01:40 Reviewed. cp cp 04:06 03:57 doctor bret cp 05:31 05:28 Constitutional: The patient appears in no acute distress, alert, awake, cp non-diaphoretic, non-toxic, well developed, well nourished, obese, uncomfortable, cp 07:35 04:06 doctor bret cash 07:40 07:35 doctor shailesh cash 11:02 07:40 doctor shailesh
[2024-12-11] MEDS ORDERED: NA CHLORIDE 0.9% 500 ML ONE (04:09)
[2024-12-11] MEDS ORDERED: NA CHLORIDE 0.9% 100 ML ONE (04:09)
[2024-12-11] MEDS ORDERED: VANCOMYCIN 1 GM/VIAL ONE (04:09)
[2024-12-11] MEDS ORDERED: Meropenem 1000 MG/VIAL IV ONE (04:09)
--- NOTE | 2024-12-11 07:20 | RAD REPORT ---
EXAMINATION: CT PELVIS ANGIOGRAPHY WITH IV CONTRAST, CT ABDOMEN WITH IV CONTRAST CLINICAL INDICATION: Female, 74 years old.Portal venous gas TECHNIQUE: CTA abdomen and pelvis was performed, afterthe administration of IV contrast, as per [facility] protocol. MIPS were created. Axial, sagittal and coronal reconstructions were obtained. One or more of the following dose reduction techniques were used: Automated exposure control, adjustment of the mA and/or kV according to patient size, and/or iterative reconstruction. Unless otherwise specified, incidental findings do not require dedicated imaging follow-up. [id number]. COMPARISON: Same day CT FINDINGS: LOWER CHEST: Mild nodularity in the right middle lobe.Mild cardiomegaly. Mild circumferential thicken ing of the distal esophagus which could reflect esophagitis. UPPER GI: Gastric wall thickening is present. The pneumatosis identified on the CT from earlier is no t as readily apparent. LIVER: Portal venous gas. Nodular liver contour. No focal mass. GALLBLADDER/BILE DUCTS: No biliary ductal dilatation. PANCREAS: Atrophy, but otherwise unremarkable. SPLEEN: Mild splenomegaly. ADRENALS: Adrenal thickening without discrete mass. KIDNEYS AND URETERS: No hydronephrosis.Low density and/or too small to characterize renal lesions whi ch are statistically benign.No renal calculi identified.No ureteral calculi. ABDOMINAL AORTA AND OTHER VESSELS: 13 mm splenic artery aneurysm doubtful significance. Minimal aorti c atherosclerosis. 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 The SMA is patent. The KYLE is patent. PERITONEUM: No abnormal free fluid. No free air. LYMPH NODES: No pathologic lymphadenopathy. ABDOMINAL WALL: Unremarkable SMALL BOWEL/COLON: Small bowel has normal course and caliber. No colonic wall thickening or pericolon ic inflammatory changes.Normal appendix. URINARY BLADDER: Underdistended but grossly unremarkable. REPRODUCTIVE ORGANS: No pathologic process. MUSCULOSKELETAL: Multilevel degenerative changes in the spine. No acute fracture. ADDITIONAL FINDINGS: None. 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 Portal venous gas is again noted at the liver but pneumatosis of the stomach has largely improved from the CT from earlier in the day. Pneumatosis in the gastric wall could be from emphysema tous gastritis, ischemic gastritis, or more benign etiology. Even with severe narrowing at the celiac trunk, ischemic gastritis is rare. Electronically signed by: Theo Brand MD 12/11/2024 07:16 AM CDT RP Due to temporary technical issues with the PACS/[employer] reporting system, reports are being justin d by the in-house radiologist without review as a courtesy to ensure prompt reporting the interpreting radiologist is fully responsible for the content of the report. Transcribed Date/Time: 12/11/2024 7:20 AM
--- NOTE | 2024-12-11 07:21 | RAD REPORT ---
EXAMINATION: CT PELVIS ANGIOGRAPHY WITH IV CONTRAST, CT ABDOMEN WITH IV CONTRAST CLINICAL INDICATION: Female, 74 years old.Portal venous gas TECHNIQUE: CTA abdomen and pelvis was performed, afterthe administration of IV contrast, as per [facility] protocol. MIPS were created. Axial, sagittal and coronal reconstructions were obtained. One or more of the following dose reduction techniques were used: Automated exposure control, adjustment of the mA and/or kV according to patient size, and/or iterative reconstruction. Unless otherwise specified, incidental findings do not require dedicated imaging follow-up. [id number]. COMPARISON: Same day CT FINDINGS: LOWER CHEST: Mild nodularity in the right middle lobe.Mild cardiomegaly. Mild circumferential thicken ing of the distal esophagus which could reflect esophagitis. UPPER GI: Gastric wall thickening is present. The pneumatosis identified on the CT from earlier is no t as readily apparent. LIVER: Portal venous gas. Nodular liver contour. No focal mass. GALLBLADDER/BILE DUCTS: No biliary ductal dilatation. PANCREAS: Atrophy, but otherwise unremarkable. SPLEEN: Mild splenomegaly. ADRENALS: Adrenal thickening without discrete mass. KIDNEYS AND URETERS: No hydronephrosis.Low density and/or too small to characterize renal lesions whi ch are statistically benign.No renal calculi identified.No ureteral calculi. ABDOMINAL AORTA AND OTHER VESSELS: 13 mm splenic artery aneurysm doubtful significance. Minimal aorti c atherosclerosis. 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 The SMA is patent. The KYLE is patent. PERITONEUM: No abnormal free fluid. No free air. LYMPH NODES: No pathologic lymphadenopathy. ABDOMINAL WALL: Unremarkable SMALL BOWEL/COLON: Small bowel has normal course and caliber. No colonic wall thickening or pericolon ic inflammatory changes.Normal appendix. URINARY BLADDER: Underdistended but grossly unremarkable. REPRODUCTIVE ORGANS: No pathologic process. MUSCULOSKELETAL: Multilevel degenerative changes in the spine. No acute fracture. ADDITIONAL FINDINGS: None. 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 Portal venous gas is again noted at the liver but pneumatosis of the stomach has largely improved from the CT from earlier in the day. Pneumatosis in the gastric wall could be from emphysema tous gastritis, ischemic gastritis, or more benign etiology. Even with severe narrowing at the celiac trunk, ischemic gastritis is rare. Electronically signed by: Theo Brand MD 12/11/2024 07:16 AM CDT RP Due to temporary technical issues with the PACS/[employer] reporting system, reports are being justin d by the in-house radiologist without review as a courtesy to ensure prompt reporting the interpreting radiologist is fully responsible for the content of the report. Transcribed Date/Time: 12/11/2024 7:21 AM
[2024-12-11 11:52] VITALS: TEMP 98.1
[2024-12-11 11:53] VITALS: BP 107/54; O2SAT 98
--- NOTE | 2024-12-13 10:59 | EKG ---
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
== END 2024-12-11 11:02 | disposition short-term general hospital (02) ==
LOC: ER 23:37
DX: K55.059 Acute (reversible) ischemia of intestine, part and extent unspecified (principal); R11.2 Nausea with vomiting, unspecified; E11.22 Type 2 diabetes mellitus with diabetic chronic kidney disease; I12.0 Hypertensive chronic kidney disease with stage 5 chronic kidney disease or end stage renal disease; N18.6 End stage renal disease; I87.8 Other specified disorders of veins
CPT/HCPCS: 96365; 96367; 96368; 93005; 87040 ×2; 85025; 80048; 36415; 83735; 85610; 80076; 83605; 84484; 83690; 83880; 72191; 74175; 74176; 71045; 96375; 99285; Q9967; J2470; J3370; J2270 ×2; J2185; J2405; J7050

== ENCOUNTER 2024-12-25 00:46 | Inpatient (IN) | payer OTHER ==
--- OUTSIDE RECORDS SUMMARY | 2024-12-25 00:49 | XMS REPORT | Clinical Summary ---
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 6 Sleep apnea 08/07/2016 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/06/2016 Cancer Staging:Clinical stage from 08/25/2016:Stage IA(Primary) - Signed by Daly Lynn MD on 08/29/2016 Atrial fibrillation 08/06/2016 Diabetes mellitus 08/06/2016 Surgical History Surgery Date Site/Laterality Comments COLONOSCOPY Normal HYSTEROSCOPY 05/03/2016 TUBAL LIGATION Bilateral WV LAPAROSCOPY TOT HYSTERECTOMY >250 G W/TUBE/OVAR 08/15/2016 N/A Procedure: ROBOTIC ASSISTED TOTAL HYSTERECTOMY; Surgeon: Daly Lynn MD; Location: MAIN OR; 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: 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 - GYNECOLOGIC ONCOLOGY WV SALPINGO-OOPHORECTOMY COMPL/PRTL UNI/BI SPX 08/15/2016 Bilateral Procedure: ROBOTIC ASSISTED SALPINGO-OOPHORECTOMY; Surgeon: Daly Lynn MD; Location: MAIN OR; Service: 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 - GYNECOLOGIC ONCOLOGY WV INTRAOP SENTINEL LYMPH NODE ID W/DYE INJECTION 08/15/2016 Bilateral Procedure: INTRAOPERATIVE LYMPHATIC MAPPING; ROBOTIC SENTINEL LYMPH NODE MAPPING AND LYMPH NODE BIOPSY; Surgeon: Daly Lynn MD; Location: MAIN OR; Service: 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 - GYNECOLOGIC ONCOLOGY Medical History Medical History [...] on file Legal 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 PCP - General Gynecologic Medical Oncology 07/22/16 Faraz Bueno MD (Mini) [email or web address] [email or web address] - External Referring Obstetrics/Gynecology 01/26/17 Faraz Bueno MD (Mini) [email or web address] - External Follow Up A Obstetrics/Gynecology 01/26/17 Jori Lynn MD [address] [place] [address] [email or web address] Consulting Physician Internal Medicine 08/13/16
[2024-12-25 01:43] LABS: Absolute Eosinophils 0.2 K/uL (0-0.5); Absolute Lymphocytes (CBC) 0.7 K/uL (0.7-4.9); Absolute Neutrophil 3.8 K/uL (1.8-8.0); Basophils % 0.8 % (0-1.3); Eosinophils % 3.2 % (0-4.4); Hematocrit 29.4 % (36.0-45.0); Hemoglobin 9.7 g/dL (12.0-15.0); Lymphocytes % 11.7 % (15.3-44.8); MCH 32.8 pg (27.0-35.0); MCV 99.4 fL (80-100); MPV 7.8 fL (7.6-11.3); Monocytes % 17.1 % (3.3-12.3); Neutrophils % 67.2 % (41.7-73.7); Nucleated Red Blood Cells % 0.4 % (0-0); Platelets 265 thou/uL (152-406); RBC Red Blood Cell Count 2.96 M/uL (3.86-4.86); Red Cell Distribution Width 15.9 % (12.1-15.2)
[2024-12-25 01:48] LABS: D-Dimer 0.375 FEUug/mL (0-0.500); PT Prothrombin Time 18.3 SECONDS (10-13.0); PTT, Activated Partial Thromb 33.4 SECONDS (27.2-37.4); Protime INR 1.64
[2024-12-25 01:55] LABS: ALT/SGPT 16 U/L (13-56); AST/SGOT < 10 U/L (15-37); Albumin 2.9 g/dL (3.4-5.0); Albumin/Globulin Ratio 0.6 (1.1-1.8); Alkaline Phosphatase 131 U/L (45-117); Anion Gap 10.9 mEq/L (5.0-15.0); BUN Blood Urea Nitrogen 19 mg/dL (7-18); Bicarbonate 28 mEq/L (21-32); Bilirubin Direct < 0.2 mg/dL (0-0.2); Bilirubin Indirect, Calculated 0.4 mg/dL (0.2-0.8); Bilirubin Total 0.6 mg/dL (0.2-1.0); Creatine Phosphokinase 31 U/L (26-192); Globulin 4.5 g/dL (2.3-3.5); Glomerular Filtration Rate 10 ml/min (=/>90); Glucose Level 161 mg/dL (74-106); Lipase 62 U/L (13-75); NT PRO-BNP 24404 pg/mL (<125); Potassium 3.9 mEq/L (3.5-5.1); Protein, Total 7.4 g/dL (6.4-8.2); Sodium Level 132 mEq/L (136-145)
[2024-12-25 01:57] LABS: Troponin High Sensitivity 86.4 pg/mL (<58.9)
[2024-12-25] MEDS ORDERED: ONDANSETRON 4 MG/2 ML VIAL IV PRN (02:38)
--- NOTE | 2024-12-25 02:38 | P.HP ---
Certification for Inpatient Patient admitted to: Inpatient With expected LOS: >2 Midnights Practitioner: I am a practitioner with admitting privileges, knowledge of patient current condition, hospital course, and medical plan of care. Services: Services provided to patient in accordance with Admission requirements found in Title 42 Section 412.3 of the Code of Federal Regulations Patient History Date of Service: 12/25/24 Reason for admission: SOB History of Present Illness: 74 year-old female patient with medical history significant for type 2 diabetes, hypertension, hyperlipidemia, ESRD on dialysis Who was brought to ER with shortness of breath which has been progressively getting worse overnight and was brought to ER. Denies any chest pain. No fever or chills. No nausea vomiting or diarrhea. Patient was assessed in the ER and is admitted for fluid overload. Patient had dialysis yesterday. Allergies amoxicillin [Amoxicillin] Allergy (Intermediate, Verified 06/16/23 08:31) Hives/Rash sulfamethoxazole [From Bactrim] Allergy (Intermediate, Verified 06/16/23 08:31) Hives/Rash trimethoprim [From Bactrim] Allergy (Intermediate, Verified 06/16/23 08:31) Hives/Rash Home medications list reviewed: Yes Home Medications: Allopurinol 100 mg PO BID 06/23/20 Atorvastatin Calcium 20 mg PO BEDTIME 06/23/20 Cholecalciferol (Vitamin D3) [Vitamin D3] 3,000 unit PO DAILY 06/23/20 Ferrous Sulfate [Iron] 325 mg PO TID 06/23/20 Loratadine [Claritin*] 10 mg PO DAILY 06/23/20 carvediloL [Coreg] 25 mg PO BID 06/23/20 Apixaban [Eliquis] 5 mg PO BID 01/01/23 Digoxin [Lanoxin*] 0.125 mg PO DAILY 01/01/23 Insulin Lispro [Humalog] See Rx Instructions .ROUTE .COMPLEX 01/13/23 Insulin NPH Human Isophane [Novolin N] 52 unit SQ BID 01/13/23 Liraglutide [Victoza 2-Meir] 1.8 units IN DAILY 01/13/23 Pantoprazole Sodium 40 mg PO BID 30 Days #60 tab 06/08/23 Furosemide [Lasix] 80 mg PO DAILY #30 tab 08/21/23 - Past Medical/Surgical History Diabetic: Yes Past Medical History: Reviewed- Non-Contributory -: Diabetes mellitus type 2-insulin dependent -: Hypertension -: Afib on chronic anticoagulation -: Obesity -: Hyperlipidemia -: Chronic renal disease stage IV -: Cancer uterine 3years ago -: Degenerative joint disease of the hip -: Chronic systolic congestive heart failure Past Surgical History: Reviewed- Non-Contributory -: Tubal ligation -: Hysterectomy -: pacemaker Psychosocial/ Personal History: She is of 49 years, has 4 children, she does not work, lives at home with her . - Family History Family History: Reviewed- Non-Contributory - Family History Father -: Kidney disease Mother -: Diabetes - Social History Smoking Status: Never smoker Alcohol use: No CD- Drugs: No Caffeine use: Yes Review of Systems 10-point ROS is otherwise unremarkable Physical Examination - Vital Signs Temperature: 97.8 F Blood Pressure: 132/60 Pulse: 70 Respirations: 18 Pulse Ox (%): 94 - Physical Exam General: Alert, Oriented x3, Mild distress HEENT: Atraumatic, Normocephalic Neck: Supple Respiratory: Diminished, Crackles/rales Cardiovascular: Regular rate/rhythm, Normal S1 S2 Capillary refill: <2 Seconds Gastrointestinal: Soft and benign, W/out hepatosplenomegaly Musculoskeletal: No clubbing, Swelling Integumentary: No rashes Neurological: Normal speech, Normal strength at 5/5 x4 extr Lymphatics: No axilla or inguinal lymphadenopathy - Studies Laboratory Data (last 24 hrs) 12/25/24 12/25/24 12/25/24 01:20 01:20 01:20 WBC 5.70 Hgb 9.7 L Hct 29.4 L Plt Count 265 PT 18.3 H INR 1.64 APTT 33.4 Sodium 132 L Potassium 3.9 BUN 19 H Creatinine 4.29 H Glucose 161 H Magnesium 2.0 Total Bilirubin 0.6 AST < 10 L ALT 16 Alkaline Phosphatase 131 H Lipase 62 Assessment and Plan - Plan Fluid overload Shortness of breath History of ESRD on dialysis Aggressive diuresis Monitor closely telemetry Acute on chronic CHF possibly systolic Monitor closely on telemetry Started on aggressive diuresis Oxygen supplementation Will try to wean down oxygen requirement Continue home medications Titrate as needed Will obtain an echocardiogram Cardiology consult NSTEMI possibly type II Will trend cardiac enzymes Will monitor telemetry Started on aspirin and statin EKG did not show any acute changes suggestive of ischemia Patient denies any chest pain Cardiology consult Acute on chronic hypoxic respiratory failure Initially was on BiPAP Will try to wean down to oxygen nasal cannula ESRD on dialysis Monitor renal function. Nephrology to follow. Electrolytes monitor and replace accordingly Diabetes type 2: Insulin sliding scale. Accu-Chek before every meal and at bedtime Hypertension Antihypertensives titrated Continue home medications and titrate as needed Hyperlipidemia Continue statin Diabetes Insulin sliding scale Accu-Chek before every meal and at bedtime Anemia of chronic disease Monitor H&H closely No overt bleeding at this time Atrial fibrillation Stable. Continue Coreg and Eliquis GI/DVT prophylaxis Advanced directive full code Discharge Plan: Home Plan to discharge in: 48 Hours - Advance Directives Does patient have a Living Will: No Does patient have a Durable POA for Healthcare: No Time Spent Managing Pts Care (In Minutes): 48
[2024-12-25] MEDS: FUROSEMIDE 40 MG/4 ML VIAL IV SCH (02:41)
--- NOTE | 2024-12-25 03:55 | EDPHYS ---
Physician Documentation [facility] Name: Nhung Munson Age: 74 yrs Sex: Female : 1950 Arrival Date: 12/25/2024 Time: 00:46 Bed 3 Private MD: ED Physician Richmond Nieto HPI: 12/25 00:54 This 74 yrs old Female presents to ER via Unassigned with complaints of sp4 Cough, Shortness Of Breath. 12/26 03:50 74-year-old female presents with cough and shortness of breath.. sp4 Historical: - Allergies: 12/25 01:27 Amoxicillin; br2 01:27 Bactrim DS; br2 01:27 Demerol; br2 - PMHx: 01:27 Atrial Fib; cellulitis left lower extremity (Renal Problems); Diabetes - IDDM; End br2 stage renal disease; Gout; High Cholesterol; Hypertension; Renal Problems; - PSHx: 01:27 AV fistula (Pr); pacemaker (Pr); br2 - Immunization history:: Adult Immunizations up to date. - Infectious Disease History:: Denies. - Social history:: Smoking status: Patient denies any tobacco usage or history of. Patient/guardian denies using alcohol, street drugs. - Family history:: not pertinent. ROS: 12/26 03:50 Constitutional: Negative for fever, chills, and weight loss, positive cough and sp4 shortness of breath. All other systems are negative, Exam: 03:50 Constitutional: This is a well developed, well nourished patient who is awake, alert, sp4 and in no acute distress. Head/Face: Normocephalic, atraumatic. Eyes: Pupils equal round and reactive to light, extra-ocular motions intact. Lids and lashes normal. Conjunctiva and sclera are not injected. Cornea within normal limits. Periorbital areas with no swelling, redness, or edema. ENT: Nares patent. No nasal discharge, no septal abnormalities noted. Tympanic membranes are normal and external auditory canals are clear. Oropharynx with no redness, swelling, or masses, exudates, or evidence of obstruction, uvula midline. Mucous membranes moist. Neck: Trachea midline, no thyromegaly or masses palpated, and no cervical lymphadenopathy. Supple, full range of motion without nuchal rigidity, or vertebral point tenderness. Chest/axilla: Normal chest wall appearance and motion. Nontender with no deformity. No lesions are appreciated. Cardiovascular: Regular rate and rhythm with a normal S1 and S2. No gallops, murmurs, or rubs. Normal PMI, no JVD. No pulse deficits. Respiratory: Lungs have equal breath sounds bilaterally, clear to auscultation and percussion. No rales, rhonchi or wheezes noted. No increased work of breathing, no retractions or nasal flaring. Abdomen/GI: Soft, with normal bowel sounds. No distension or tympany. No guarding or rebound. No evidence of tenderness throughout. Back: No spinal tenderness. No costovertebral tenderness. Skin: Warm, dry with normal turgor. Normal color with no rashes, no lesions, and no evidence of cellulitis. MS/ Extremity: Pulses equal, no cyanosis. Neurovascular intact. Full, normal range of motion. Neuro: Awake and alert, GCS 15, oriented to person, place, time, and situation. Cranial nerves II-XII grossly intact. Motor strength 5/5 in all extremities. Sensory grossly intact. Psych: Awake, alert, with orientation to person, place and time. Behavior, mood, and affect are within normal limits Vital Signs: 12/25 00:46 BP 140 / 63; Pulse 70; Resp 24; Temp 97.2(TE); Pulse Ox 100% on BIPAP; Weight 104.33 br2 kg; Height 5 ft. 2 in. ; Pain 0/10; 01:56 BP 144 / 62; Pulse 70; Resp 18; Pulse Ox 100% on BIPAP; br2 02:24 BP 125 / 54; Pulse 70; Resp 18; Pulse Ox 100% on BIPAP; br2 03:12 BP 138 / 64; Pulse 70; Resp 18; Pulse Ox 100% ; br2 00:46 Body Mass Index 42.07 (104.33 kg, 157.48 cm) br2 00:46 Pain Scale: Adult br2 [place] Coma Score: 12/26 03:50 Eye Response: spontaneous(4). Motor Response: obeys commands(6). Verbal Response: sp4 oriented(5). Total: 15. MDM: 12/25 00:54 Medical Screening Exam initiated sp4 04:20 ED course: EXAM: XR Chest, 1 View CLINICAL HISTORY: The patient is 74 years old and is sp4 Female; CHEST PAIN TECHNIQUE: Frontal view of the chest. COMPARISON: No relevant prior studies available. FINDINGS: Lungs: Unremarkable. No consolidation. Pleural space: Unremarkable. No pneumothorax. Heart: Unremarkable. Mediastinum: Unremarkable. Normal mediastinal contour. Bones/joints: No acute findings. Tubes, lines and devices: Left-sided pacemaker. IMPRESSION: No acute findings in the chest. . 12/26 03:50 Differential Diagnosis: Obstructed Airway Bronchitis Influenza Upper Respiratory sp4 Infection Sinusitis Pharyngitis. Data reviewed: vital signs, nurses notes, radiologic studies, plain films. 03:51 Consideration of Admission/Observation Escalation of care including sp4 admission/observation considered. ED course: Stable for admission with nephrology consult.. 12/25 00:54 Order name: BMP; Complete Time: 02:30 4 12/25 00:54 Order name: Blood Culture Adult (2) 4 12/25 00:54 Order name: CBC with Diff; Complete Time: 02:30 4 12/25 00:54 Order name: CPK; Complete Time: 02:30 4 12/25 00:54 Order name: D-Dimer; Complete Time: 02:30 4 12/25 00:54 Order name: Hepatic Function; Complete Time: 02:30 sp4 12/25 00:54 Order name: Lipase; Complete Time: 02:30 sp4 12/25 00:54 Order name: Magnesium; Complete Time: 02:30 4 12/25 00:54 Order name: NT PRO-BNP; Complete Time: 02:30 4 12/25 00:54 Order name: PT-INR; Complete Time: 02:30 sp4 12/25 00:54 Order name: Ptt, Activated; Complete Time: 02:30 4 12/25 00:54 Order name: Troponin HS; Complete Time: 02:30 sp4 12/25 00:54 Order name: ABG sp4 12/25 00:58 Order name: Lactate w/ 2H reflex if indic.; Complete Time: 02:30 al5 12/25 02:00 Order name: Ghost Lactate-NO COLLECT Timer; Complete Time: 04:20 EDMS 12/25 02:43 Order name: CBC with Automated Diff EDMS 12/25 02:43 Order name: CBC with Automated Diff EDKY 12/25 02:43 Order name: Comprehensive Metabolic Panel EDMS 12/25 02:43 Order name: Comprehensive Metabolic Panel EDKY 12/25 02:45 Order name: Troponin High Sensitivity EDKY 12/25 00:54 Order name: XRAY CXR (1 view) 4 12/25 00:54 Order name: Call RT; Complete Time: 00:58 sp4 12/25 00:54 Order name: Cardiac monitoring; Complete Time: 00:58 sp4 12/25 00:54 Order name: EKG - Nurse/Tech; Complete Time: 00:58 sp4 12/25 00:54 Order name: IV Saline Lock; Complete Time: 01:22 sp4 12/25 00:54 Order name: Labs collected and sent; Complete Time: 01: sp4 12/25 00:54 Order name: O2 Per Protocol; Complete Time: 00:58 sp4 12/25 00:54 Order name: O2 Sat Monitoring; Complete Time: 00:58 sp4 Administered Medications: 12/25 04:13 Drug: morphine IVP or IV 2 mg IVP once over 4 mins Route: IVP; Infused Over: 4 mins; br2 Site: right hand; 05:00 Follow up: Response: No adverse reaction br2 04:13 Drug: Ondansetron IVP 4 mg IVP once; over 2 minutes Route: IVP; Site: right hand; br2 05:00 Follow up: Response: No adverse reaction br2 04:13 Drug: Methocarbamol PO 750 mg PO once Route: PO; br2 05:00 Follow up: Response: No adverse reaction br2 Disposition: 12/26 03:52 Chart complete. sp4 Disposition Summary: 12/25/24 03:55 Hospitalization Ordered Notes: Hospitalization Status: Inpatient Admission rv1 Provider: Richmond Nieto rv1 Location: Telemetry/MedSurg (Inpatient) rv1 Condition: Stable rv1 Problem: new rv1 Symptoms: are unchanged rv1 Bed/Room Type: Standard 1 Room Assignment: 210 rv1 Diagnosis - Fluid overload rv1 Forms: - Medication Reconciliation Form rv1 - SBAR form rv1 - Leadership Thank You Letter rv1 Signatures: Dispatcher [employer] Stephanie Thapa rv1 Richmond Nieto MD MD sp4 Viki Chen RN RN al5 Amber Patel, RN RN br2 Corrections: (The following items were deleted from the chart) 12/25 00:55 00:55 Chest Single View+RAD.RAD.BRZ ordered. EDMS EDMS 00:55 00:55 Arterial Blood Gas+RC.LAB.BRZ ordered. EDMS EDMS 00:55 00:55 BiPap ([employer] Only)+RC.RAD.BRZ ordered. EDMS EDMS
--- NOTE | 2024-12-25 03:55 | ER ---
Nurse's Notes [facility] Name: Nhung Munson Age: 74 yrs Sex: Female : 1950 Arrival Date: 12/25/2024 Time: 00:46 Bed 3 Private MD: Diagnosis: Fluid overload Presentation: 12/25 00:46 Chief complaint: Patient states: PT ARRIVES VIA EMS DUE TO SOB, WORSE WHEN SHE LAYS br2 DOWN. PT STATES SHE HAD ALL HER DIALYSIS TODAY. PT ARRIVES ON BIPAP. Coronavirus screen: Client denies travel out of the [place] in the last 14 days. Ebola Screen: Patient denies exposure to infectious person. Initial Sepsis Screen: Does the patient meet any 2 criteria? RR > 20 per min. No. Patient's initial sepsis screen is negative. Does the patient have a suspected source of infection?. Risk Assessment: Do you want to hurt yourself or someone else? Patient reports no desire to harm self or others. Onset of symptoms was December 24, 2024. 00:46 Method Of Arrival: EMS: [facility] br2 00:46 Acuity: BACILIO 3 br2 Triage Assessment: 01:27 General: Appears uncomfortable, Behavior is calm, cooperative. Pain: Denies pain. EENT: br2 No signs and/or symptoms were reported regarding the EENT system. Neuro: [place]le Agitation-Sedation Scale (RASS): 0 - Alert and Calm Level of Consciousness is awake, alert, obeys commands, Oriented to person, place, time, situation. Cardiovascular: Capillary refill < 3 seconds Rhythm is ventricular pacer. Respiratory: Reports shortness of breath at rest on exertion cough that is dry, Airway is patent Respiratory effort is even, Respiratory pattern is regular, symmetrical, Onset: The symptoms/episode began/occurred yesterday, the patient has moderate shortness of breath. GI: No signs and/or symptoms were reported involving the gastrointestinal system. : No signs and/or symptoms were reported regarding the genitourinary system. Derm: No signs and/or symptoms reported regarding the dermatologic system. Musculoskeletal: Circulation, motion, and sensation intact. Capillary refill < 3 seconds. Historical: - Allergies: 01:27 Amoxicillin; br2 01:27 Bactrim DS; br2 01:27 Demerol; br2 - PMHx: 01:27 Atrial Fib; cellulitis left lower extremity (Renal Problems); Diabetes - IDDM; End br2 stage renal disease; Gout; High Cholesterol; Hypertension; Renal Problems; - PSHx: 01:27 AV fistula (Pr); pacemaker (Pr); br2 - Immunization history:: Adult Immunizations up to date. - Infectious Disease History:: Denies. - Social history:: Smoking status: Patient denies any tobacco usage or history of. Patient/guardian denies using alcohol, street drugs. - Family history:: not pertinent. Screenin:46 [facility] ED Fall Risk Assessment (Adult) History of falling in the last 3 months, br2 including since admission No falls in past 3 months (0 pts) Confusion or Disorientation No (0 pts) Intoxicated or Sedated No (0 pts) Impaired Gait Yes (1 pt) Mobility Assist Device Used Yes (1 pt) Altered Elimination No (0 pt) Score/Fall Risk Level 3 or more points = High Risk Oriented to surroundings. Abuse screen: Denies threats or abuse. Denies injuries from another. Nutritional screening: No deficits noted. Tuberculosis screening: No symptoms or risk factors identified. Assessment: 00:46 Reassessment: SEE TRIAGE ASSESSMENT. br2 01:58 Reassessment: JANELLE PALUSON [facility] AT [facility] ATTEMPTING FOR ABG'S, UNSUCCESSFUL AND PT br2 DOESN'T WANT TO BE STUCK AGAIN. DR NIETO NOTIFIED. Vital Signs: 00:46 BP 140 / 63; Pulse 70; Resp 24; Temp 97.2(TE); Pulse Ox 100% on BIPAP; Weight 104.33 br2 kg; Height 5 ft. 2 in. ; Pain 0/10; 01:56 BP 144 / 62; Pulse 70; Resp 18; Pulse Ox 100% on BIPAP; br2 02:24 BP 125 / 54; Pulse 70; Resp 18; Pulse Ox 100% on BIPAP; br2 03:12 BP 138 / 64; Pulse 70; Resp 18; Pulse Ox 100% ; br2 00:46 Body Mass Index 42.07 (104.33 kg, 157.48 cm) br2 00:46 Pain Scale: Adult br2 [place] Coma Score: 12/26 03:50 Eye Response: spontaneous(4). Motor Response: obeys commands(6). Verbal Response: sp4 oriented(5). Total: 15. ED Course: 12/25 00:46 Patient has correct armband on for positive identification. Bed in low position. Call br2 light in reach. Side rails up X 1. Provided Education on: PLAN OF CARE. 00:47 Patient arrived in ED. gm2 00:53 Richmond Nieto MD is Attending Physician. sp4 01:22 Lactate w/ 2H reflex if indic. Sent. br2 01:22 BMP Sent. br2 01:22 Blood Culture Adult (2) Sent. br2 01:22 CBC with Diff Sent. br2 01:22 CPK Sent. br2 01:23 D-Dimer Sent. br2 01:23 Hepatic Function Sent. br2 01:23 Lipase Sent. br2 01:23 Magnesium Sent. br2 01:23 NT PRO-BNP Sent. br2 01:23 PT-INR Sent. br2 01:23 Ptt, Activated Sent. br2 01:23 Troponin HS Sent. br2 01:27 Triage completed. br2 01:30 Amber Patel RN is Primary Nurse. br2 01:31 Maintain EMS IV. Dressing intact. Good blood return noted. Site clean \T\ dry. Gauge \T\ br 2 site: 20G RIGHT A/C. 01:35 Inserted saline lock: 22 gauge in right wrist, using aseptic technique. br2 02:06 XRAY CXR (1 view) In Process Unspecified. EDMS 03:54 Richmond Nieto MD is Hospitalizing Provider. rv1 05:20 No provider procedures requiring assistance completed. Patient admitted, IV remains in br2 place. Administered Medications: 04:13 Drug: morphine IVP or IV 2 mg IVP once over 4 mins Route: IVP; Infused Over: 4 mins; br2 Site: right hand; 05:00 Follow up: Response: No adverse reaction br2 04:13 Drug: Ondansetron IVP 4 mg IVP once; over 2 minutes Route: IVP; Site: right hand; br2 05:00 Follow up: Response: No adverse reaction br2 04:13 Drug: Methocarbamol PO 750 mg PO once Route: PO; br2 05:00 Follow up: Response: No adverse reaction br2 Outcome: 03:55 Decision to Hospitalize by Provider. rv1 05:20 Admitted to Med/surg accompanied by cara via stretcher, room 210, br2 05:22 Patient left the ED. br2 Signatures: Dispatcher [employer] Stephanie Thapa rv1 Richmond Nieto MD MD sp4 Susan Gleason gm2 Amber Patel RN RN br2
[2024-12-25] MEDS ORDERED: MORPHINE 2 MG/ML SYR ONE (04:06)
[2024-12-25] MEDS ORDERED: methocarbamoL 750 MG TAB ONE (04:06)
[2024-12-25] MEDS ORDERED: ONDANSETRON 4 MG/2 ML VIAL ONE (04:06)
--- NOTE | 2024-12-25 05:49 | RAD REPORT ---
EXAM: XR Chest, 1 View CLINICAL HISTORY: The patient is 74 years old and is Female; CHEST PAIN TECHNIQUE: Frontal view of the chest. COMPARISON: No relevant prior studies available. FINDINGS: Lungs: Unremarkable. No consolidation. Pleural space: Unremarkable. No pneumothorax. Heart: Unremarkable. Mediastinum: Unremarkable. Normal mediastinal contour. Bones/joints: No acute findings. Tubes, lines and devices: Left-sided pacemaker. IMPRESSION: No acute findings in the chest. Electronically signed by: Santino Ordonez MD 12/25/2024 02:34 AM CDT 8 Due to temporary technical issues with the PACS/[employer] reporting system, reports are being justin d by the in-house radiologist without review as a courtesy to ensure prompt reporting the interpreting radiologist is fully responsible for the content of the report. Transcribed Date/Time: 12/25/2024 5:48 AM
[2024-12-25 06:13] VITALS: BMI 37.3
[2024-12-25] MEDS ORDERED: GLUCAGON 1 MG/VIAL IM PRN (06:13)
[2024-12-25] MEDS ORDERED: D50W 25 GM/50 ML SYRINGE IV PRN (06:13)
[2024-12-25] MEDS ORDERED: D10W 125 ML IV PRN (06:24)
[2024-12-25] MEDS: INSULIN NPH (HUMAN) 100 UNITS/ML SQ SCH ×2 (08:00→20:34)
[2024-12-25] MEDS: VITAMIN D 1000 UNIT TAB PO SCH (09:00)
[2024-12-25] MEDS ORDERED: HEPARIN 5000 UNIT/ML 1 ML VIAL SQ SCH (09:00)
[2024-12-25] MEDS: APIXABAN 5 MG TABLET PO SCH (09:02)
[2024-12-25] MEDS: PANTOPRAZOLE 40MG TABLET PO SCH (09:02)
[2024-12-25] MEDS: allopurinoL 100 MG TAB PO SCH (09:02)
[2024-12-25] MEDS: LORATADINE 10 MG TAB PO SCH (09:02)
[2024-12-25] MEDS: carvediloL 6.25 MG TAB PO SCH (09:02)
[2024-12-25] MEDS: DIGOXIN 0.125 MG TABLET PO SCH (09:02)
[2024-12-25] MEDS: CEFTRIAXONE 1,000 MG in NA CHLORIDE 0.9% 50 ML IVPB SCH (15:19)
[2024-12-25] MEDS: AZITHROMYCIN IV 500 MG in NA CHLORIDE 0.9% 250 ML IVPB SCH (16:04)
--- NOTE | 2024-12-25 19:19 | CON ---
Date of Consultation: 12/25/2024 Chief Complaint: Shortness of breath and cough. Reason For Consultation: End-stage renal disease, fluid and electrolyte management. History Of Present Illness: This is a 74-year-old woman with past medical history of end-stage renal disease, on hemodialysis Thursday, Thursday, and Thursday; history of chronic respiratory failure, on h ome oxygen; diabetes mellitus; hypertension; hyperlipidemia. The patient presented for shortness of breath and cough. Symptoms started few days ago. She had dialysis extra dialysis treatment on as well as of yesterday. Yesterday, patient left 1 kg below her dry weight. She still after fi nishing dialysis was still complaining of shortness of breath, was admitted for that reason. Her [facility] x-ray showed no significant finding. Allergies: THE PATIENT IS ALLERGIC TO AMOXICILLIN AND. Home Medications: See NOV. Past Medical History: Diabetes, hypertension, end-stage renal disease, AFib. Past Surgical History: AV fistula placement, hysterectomy, and pacemaker placement. Family History: Noncontributory. Social History: No known history of blood pressure and drug abuse. Review of Systems: Positive for weakness, shortness of breath, and cough. Denies chest pain, palpitations, nausea, vomi ting, diarrhea, or constipation. Physical Examination: Vital Signs: Temperature 97.8, pulse rate 72, blood pressure 120/54. General: Awake and alert. Looks chronically ill. Neck: Supple. No elevated JVD. Heart: Regular rate and rhythm. Normal S1, S2. Chest: Clear to auscultation bilaterally. Normal chest. Left sided rales. Abdomen: Soft and nontender. Extremities: Chronic lower extremity skin changes. Wrinkled skin. Laboratory Data: White count 5.7, hemoglobin 9.7. Lactate 2.1. Troponin 18. Sodium 132, potassium 3.9. Assessment And Plan: 1. End-stage renal disease. The patient is on dialysis Thursday, , and Thursday and will do e xtra dialysis tomorrow for optimization even though she shows like some skin wrinkling. D enies significant finding on x-ray. Renally dose medication. Avoid NSAID and contrast. 2. Shortness of breath could be multifactorial. Might benefit from antibiotics. We will discuss wit h the primary team. Continue oxygen. 3. Chronic respiratory failure, on oxygen. Continue oxygen, BiPAP as needed. 4. Diabetes mellitus. Continue insulin. 5. Atrial fibrillation, currently rate controlled on carvedilol and . Thank you for allowing me to participate in patient's care. Total time spent 55 minutes including do cumentation, reviewing labs, and placing orders. ADDY Voice ID: [id number] Report ID: [id number]
[2024-12-25] MEDS: ATORVASTATIN 20 MG TAB PO SCH (20:36)
[2024-12-26] MEDS: GUAIFENESIN/DM 5 ML UCUP PO PRN (00:07)
[2024-12-26 00:55] VITALS: O2SAT 98
[2024-12-26] MEDS: BENZONATATE 100 MG CAP PO PRN (03:12)
--- NOTE | 2024-12-26 03:55 | P.PN ---
Subjective Date of Service: 12/25/24 Subjective: No C/O voiced, Improving Review of Systems 10-point ROS is otherwise unremarkable Physical Examination - Vital Signs Temperature: 98.3 F Blood Pressure: 111/44 Pulse: 72 Respirations: 16 Pulse Ox (%): 98 - Physical Exam General: Alert, In no apparent distress, Oriented x2, Mild distress HEENT: Atraumatic, PERRLA, EOMI Neck: Supple, JVD not distended Respiratory: Diminished, Crackles/rales Cardiovascular: Regular rate/rhythm, Normal S1 S2, Systolic murmur Gastrointestinal: Normal bowel sounds, Soft and benign, Non-distended, No tenderness Musculoskeletal: No clubbing, No tenderness, Swelling Integumentary: No rashes Neurological: Sensation intact, Cranial nerves 3-12 intact - Studies Medications List Reviewed: Yes Assessment & Plan - Problems (Diagnosis) (1) Fluid overload Current Visit: Yes Status: Acute (2) ESRD (end stage renal disease) Current Visit: Yes Status: Chronic (3) CHF (congestive heart failure) Current Visit: No Status: Acute Qualifiers: Heart failure type: unspecified Heart failure chronicity: acute on chronic Qualified Code(s): I50.9 - Heart failure, unspecified (4) Generalized weakness Current Visit: No Status: Acute (5) Morbid obesity with BMI of 50.0-59.9, adult Current Visit: No Status: Acute (6) Atrial fibrillation Onset Date: 05/02/16 Current Visit: No Status: Chronic Qualifiers: (7) Diabetes mellitus Onset Date: 05/02/16 Current Visit: No Status: Chronic Qualifiers: Diabetes mellitus type: type 2 Diabetes mellitus termite treater helper insulin use: unspecified termite treater helper insulin use status Diabetes mellitus complication status: with kidney complications Diabetes mellitus complication detail: with chronic kidney disease Chronic kidney disease stage: unspecified stage Qualified Code(s): E11.22 - Type 2 diabetes mellitus with diabetic chronic kidney disease (8) Hyperlipidemia Current Visit: No Status: Chronic Qualifiers: (9) Hypertension Onset Date: 05/02/16 Current Visit: No Status: Chronic Qualifiers: Hypertension type: primary hypertension Qualified Code(s): I10 - Essential (primary) hypertension (10) Obesity Onset Date: 05/02/16 Current Visit: No Status: Chronic Qualifiers: Obesity type: due to excess calories Qualified Code(s): E66.01 - Morbid (severe) obesity due to excess calories - Plan Hernia: 1. Patient is fluid overloaded with history of ESRD; patient with diastolic dysfunction and will continue with aggressive diuresing. Hemodialysis per Nephrology and once patient is more appropriately compensated patient should be stable for discharge. Echocardiogram is pending 2. Type 2 myocardial infarction; hypoperfusion; continue with serial troponins and echocardiogram pending 3. Atrial fibrillation; continue with medication rate control and resume anticoagulation 4. GI/DVT prophylaxis Discharge Plan: Home Plan to discharge in: Greater than 2 days - Advance Directives Does patient have a Living Will: No Does patient have a Durable POA for Healthcare: No - Code Status/Comfort Care Code Status Assessed: Yes Code Status: Full Code Critical Care: No Time Spent Managing PTS Care (In Minutes): 30
[2024-12-26] MEDS ORDERED: ALBUTEROL 2.5 MG/3 ML NEB SOL NEB PRN (04:20)
[2024-12-26] MEDS: ALBUTEROL 2.5 MG/3 ML NEB SOL ONE (04:24)
[2024-12-26 05:07] LABS: Absolute Eosinophils 0.3 K/uL (0-0.5); Absolute Lymphocytes (CBC) 0.5 K/uL (0.7-4.9); Absolute Monocytes 1.3 K/uL (0.1-1.3); Basophils % 0.3 % (0-1.3); Eosinophils % 2.1 % (0-4.4); Hematocrit 29.4 % (36.0-45.0); Hemoglobin 9.7 g/dL (12.0-15.0); MCH 32.6 pg (27.0-35.0); MCV 98.6 fL (80-100); MPV 7.5 fL (7.6-11.3); Monocytes % 9.5 % (3.3-12.3); Neutrophils % 84.1 % (41.7-73.7); Platelets 277 thou/uL (152-406); RBC Red Blood Cell Count 2.98 M/uL (3.86-4.86); Red Cell Distribution Width 15.5 % (12.1-15.2)
[2024-12-26 05:38] LABS: Albumin 2.8 g/dL (3.4-5.0); Albumin/Globulin Ratio 0.7 (1.1-1.8); Alkaline Phosphatase 126 U/L (45-117); Anion Gap 9.7 mEq/L (5.0-15.0); BUN Blood Urea Nitrogen 45 mg/dL (7-18); Bicarbonate 28 mEq/L (21-32); Bilirubin Total 0.8 mg/dL (0.2-1.0); Globulin 4.2 g/dL (2.3-3.5); Glomerular Filtration Rate 7 ml/min (=/>90); Glucose Level 187 mg/dL (74-106); Potassium 4.7 mEq/L (3.5-5.1); Sodium Level 133 mEq/L (136-145)
[2024-12-26 05:39] LABS: ALT/SGPT < 14 U/L (13-56); AST/SGOT < 10 U/L (15-37)
[2024-12-26] MEDS ORDERED: CHLORASEPTIC LOZENGES PO PRN (08:37)
--- NOTE | 2024-12-26 08:42 | P.PN ---
Date of Service: 12/26/24 Subjective: Still with persistent cough Dyspnea improving No other acute events overnight ROS: 10 point ROS as noted above, otherwise negative Physical exam GEN: Alert, oriented, NAD HEENT: Normal conjunctiva, sclera anicteric CV: Regular rate and rhythm, no edema Pulm: Nonlabored respirations on nasal cannula with expiratory wheezing/crackles noted ABD: Soft, nontender, nondistended MSK: No joint tenderness Integumentary: No rashes Neuro: Normal speech, normal affect Vitals reviewed Assessment: ESRD on HD TTS with volume overload Chronic systolic congestive heart failure Cough, leukocytosis-concern for developing pneumonia/bronchitis COPD with exacerbation Atrial fibrillation on chronic anticoagulation Diabetes mellitus type 2insulin-dependent Hypertension Hyperlipidemia Plan: ESRD on HD TTS with volume overload Chronic systolic congestive heart failure Does not make urine volume management with dialysis Nephrology consulted, does not feel that she is grossly overloaded Plan for HD either today or tomorrow Cough, leukocytosis-concern for developing pneumonia/bronchitis COPD with exacerbation Persistent cough, developing leukocytosis Started on empiric antibiotics with Rocephin/Zithromax As needed nebulizer treatments, antitussives, throat lozenges Consider also some oral steroids Atrial fibrillation on chronic anticoagulation Continue home anticoagulation/antiarrhythmics Diabetes mellitus type 2insulin-dependent ACHS Accu-Chek, sliding scale insulin Hypertension Hyperlipidemia Continue home medications DVT PPX: Continue Eliquis Code status: Full code Time Spent Managing Pts Care (In Minutes): 35 <Rolando Wade - Last Filed: 12/26/24 08:39> Chart has been reviewed. Events of the last 24 hours have been noted. Case discussed with BRIONNA. I performed a substantial part of the MDM during this patient's care today. I personally made or approved the documented management plan and acknowledge its risk of complications. I agree with the findings and documentation provided in the BRIONNA's notes Patient's respiratory status is better. Repeat hemodialysis today and tomorrow per nephrology. Patient should be able to discharge after repeat hemodialysis in the morning. <Preston Driscoll - Last Filed: 12/27/24 04:09>
[2024-12-26] MEDS: predniSONE 10 MG TAB PO SCH (09:02)
--- NOTE | 2024-12-26 09:38 | P.CNS ---
Date of Consult: 12/26/24 Chief Complaint: SOB History of Present Illness: Patient with PMH of DD, AF, pacemaker placement, ESRD on HD presented with worsening SOB, Cough, denies chest pain, no palpitations, no syncope. Allergies amoxicillin [Amoxicillin] Allergy (Intermediate, Verified 06/16/23 08:31) Hives/Rash sulfamethoxazole [From Bactrim] Allergy (Intermediate, Verified 06/16/23 08:31) Hives/Rash trimethoprim [From Bactrim] Allergy (Intermediate, Verified 06/16/23 08:31) Hives/Rash Home medications list reviewed: Yes Home Medications: Allopurinol 100 mg PO DAILY 06/23/20 Atorvastatin Calcium 20 mg PO BEDTIME 06/23/20 Cholecalciferol (Vitamin D3) [Vitamin D3] 3,000 unit PO DAILY 06/23/20 Loratadine [Claritin*] 10 mg PO DAILY 06/23/20 Apixaban [Eliquis] 5 mg PO BID 01/01/23 Digoxin [Lanoxin*] 0.125 mg PO DAILY 01/01/23 Insulin NPH Human Isophane [Novolin N] 52 unit SQ DAILY WITH BREAKFAST 01/13/23 Liraglutide [Victoza 2-Meir] 1.8 units IN DAILY 01/13/23 Insulin NPH Human Isophane [Humulin N] 40 units SQ BEDTIME 12/25/24 Pantoprazole Sodium 40 mg PO DAILY 12/25/24 Vit C/E/Zn/Coppr/Lutein/Zeaxan [Preservision Areds 2 Softgel] 1 each PO BID 12/25/24 carvediloL [Coreg] 6.25 mg PO BID 12/25/24 - Past Medical/Surgical History Diabetic: Yes -: Diabetes mellitus type 2-insulin dependent -: Hypertension -: Afib on chronic anticoagulation -: Obesity -: Hyperlipidemia -: Chronic renal disease stage IV -: Cancer uterine 3years ago -: Degenerative joint disease of the hip -: Chronic systolic congestive heart failure -: Tubal ligation -: Hysterectomy -: pacemaker -: Left AV fistula Psychosocial/ Personal History: She is of 49 years, has 4 children, she does not work, lives at home with her . - Family History Father Medical History: Kidney disease Mother Medical History: Diabetes - Social History Smoking Status: Unknown if ever smoked Alcohol use: No CD- Drugs: No Caffeine use: Yes Place of Residence: Home Review of Systems 10-point ROS is otherwise unremarkable Physical Examination Temp Pulse Resp BP Pulse Ox 97.9 F 70 14 129/58 L 99 12/26/24 08:00 12/26/24 08:00 12/26/24 08:00 12/26/24 08:00 12/26/24 08:00 General: Alert, In no apparent distress HEENT: Atraumatic, PERRLA, Mucous membr. moist/pink, EOMI, Sclerae nonicteric Neck: Supple, 2+ carotid pulse no bruit, No LAD, Without JVD or thyroid abnormality Respiratory: Clear to auscultation bilaterally, Normal air movement Cardiovascular: Regular rate/rhythm, Normal S1 S2 Gastrointestinal: Normal bowel sounds, No tenderness Musculoskeletal: No tenderness Integumentary: No rashes Neurological: Normal gait, Normal speech, Normal tone, Normal affect Lymphatics: No axilla or inguinal lymphadenopathy - Problems (1) Type 2 SC (myocardial infarction) Current Visit: Yes Status: Acute Plan: Patient denies chest pain with mild leak in troponin, most likely type 2 SC from CHF, ESRD. continue ASA 81 mg daily Lipitor 40 mg daily Get Echo (2) CHF (congestive heart failure) Current Visit: No Status: Acute Plan: continue Coreg 6.25 mg po BID Patient is anuric so stop lasix add Entresto 24 mg po BID if ok with Nephrology continue volume adjustment through dialysis Qualifiers: Heart failure type: unspecified Heart failure chronicity: acute on chronic Qualified Code(s): I50.9 - Heart failure, unspecified (3) Atrial fibrillation Onset Date: 05/02/16 Current Visit: No Status: Chronic Plan: Patient is currently paced. continue Coreg continue Eliquis Qualifiers:
[2024-12-26] MEDS: ALBUMIN HUMAN 25% 100 ML IV ONE (10:32)
[2024-12-26 13:01] LABS: Hepatitis B surface AG Interp. Nonreactive (Nonreactive)
[2024-12-26 13:04] LABS: Hepatitis B Surface Ab - Quant < 3.10 mIU/mL (<8.0)
[2024-12-26 13:05] LABS: HBsAG Nonreactive Report Report
[2024-12-26] MEDS: ACETAMINOPHEN 325 MG TABLET PO PRN (15:07)
[2024-12-27 05:41] LABS: Hematocrit 25.6 % (36.0-45.0); Hemoglobin 8.4 g/dL (12.0-15.0); MCH 32.4 pg (27.0-35.0); MCHC 32.7 g/dL (32.0-36.0); MCV 98.9 fL (80-100); MPV 7.7 fL (7.6-11.3); Platelets 211 thou/uL (152-406); RBC Red Blood Cell Count 2.59 M/uL (3.86-4.86)
[2024-12-27 05:59] LABS: Anion Gap 10.6 mEq/L (5.0-15.0); Potassium 4.6 mEq/L (3.5-5.1)
--- NOTE | 2024-12-27 11:05 | P.PN ---
This is an attestation to BOROUGH COORDINATOR note Subjective: No chest pain or shortness of breath. No nausea or vomiting. No abdominal pain. No obvious bleeding. Looks comfortable in the bed. Feels ready to go home. Objective: General appearance: Alert and comfortable CVS: Normal S1 and S2 Lungs: Clear to auscultation bilaterally Abdomen: Soft, bowel sounds present, no tenderness Extremities: Trace lower extremity edema Follow-up on echo result, patient has oxygen at home, DC home after dialysis, medications as per cardiology, follow-up with PCP, nephrology and cardiology.
--- NOTE | 2024-12-27 12:09 | P.PN ---
Subjective Date of Service: 12/27/24 Chief Complaint: SOB Subjective: No new changes, No C/O voiced, Tolerating diet, Ambulating, Improving Review of Systems 10-point ROS is otherwise unremarkable Physical Examination - Vital Signs Temperature: 97.9 F Blood Pressure: 128/58 Pulse: 60 Respirations: 18 Pulse Ox (%): 98 - Physical Exam General: Alert, In no apparent distress HEENT: Atraumatic, PERRLA, EOMI Neck: Supple, JVD not distended Respiratory: Clear to auscultation bilaterally, Normal air movement Cardiovascular: Regular rate/rhythm, Normal S1 S2 Gastrointestinal: Normal bowel sounds, No tenderness Musculoskeletal: No tenderness Integumentary: No rashes Neurological: Normal speech, Normal tone, Normal affect Lymphatics: No axilla or inguinal lymphadenopathy - Studies Medications List Reviewed: Yes Assessment And Plan - Current Problems (Diagnosis) (1) Type 2 TX (myocardial infarction) Current Visit: Yes Status: Acute Plan: Patient denies chest pain with mild leak in troponin, most likely type 2 TX from CHF, ESRD. continue ASA 81 mg daily Lipitor 40 mg daily Echo shows normal EF, normal madsen motion, Grade 2 DD (2) CHF (congestive heart failure) Current Visit: No Status: Acute Plan: continue Coreg 6.25 mg po BID add Entresto 24 mg po BID if ok with Nephrology continue volume adjustment through dialysis Qualifiers: Heart failure type: unspecified Heart failure chronicity: acute on chronic Qualified Code(s): I50.9 - Heart failure, unspecified (3) Atrial fibrillation Onset Date: 05/02/16 Current Visit: No Status: Chronic Plan: Patient is currently paced. continue Coreg continue Eliquis Qualifiers:
--- NOTE | 2024-12-27 13:20 | ECHO ---
HEIGHT: 5 ft 3.5 in WEIGHT: 213 lb 13.574 oz DATE OF STUDY: 12/27/[address]: Prasanna Michael DO 2-DIMENSIONAL: YES M.MODE: YES DOPPLER: YES COLOR FLOW: YES TDS: PORTABLE: YES DEFINITY: BUBBLE STUDY: DIAGNOSIS: CONGESTIVE HEART FAILURE CARDIAC HISTORY: CATHERIZATION: YES SURGERY: NO PROSTHETIC VALVE: NO PACEMAKER: YES MEASUREMENTS (cm) DIASTOLIC (NORMALS) SYSTOLIC (NORMALS) IVSd 1.4 (0.6-1.2) LA Diam 3.6 (1.9-4.0) LVEF 60-65% LVIDd 4.3 (3.5-5.7) LVIDs 3.0 (2.0-3.5) %FS 30% LVPWd 1.4 (0.6-1.2) Ao Diam 2.5 (2.0-3.7) 2 DIMENSIONAL ASSESSMENT: RIGHT ATRIUM: NORMAL LEFT ATRIUM: MODERATELY DILATED RIGHT VENTRICLE: NORMAL LEFT VENTRICLE: NORMAL TRICUSPID VALVE: MILD TRICUSPID REGURGITATION MITRAL VALVE: MILD MITRAL REGURGITATION PULMONIC VALVE: NORMAL AORTIC VALVE: MILD AORTIC REGURGITATION PERICARDIAL EFFUSION: NONE AORTIC ROOT: NORMAL LEFT VENTRICULAR WALL MOTION: NORMAL DOPPLER/COLOR FLOW: GRADE I DIASTOLIC DYSFUNCTION COMMENTS: 1. NORMAL LEFT VENTRICULAR SYSTOLIC FUNCTION, EJECTION FRACTION 60-65%, NORMAL WALL MOTION 2. GRADE II DIASTOLIC DYSFUNCTION 3. MODERATE PULMONARY HYPERTENSION (RIGHT VENTRICULAR SYSTOLIC PRESSURE 50-55 mmHg) 4. ELEVATED FILLING PRESSURE (RIGHT ATRIAL PRESSURE 15-20 mmHg) TECHNOLOGIST: TAHIRA MARR
[2024-12-27] MEDS: MIDODRINE HCL 5 MG TABLET PO PRN (14:37)
[2024-12-27] MEDS: EPOETIN 4,000 UNIT/ML VIAL IV SCH (15:53)
--- NOTE | 2024-12-27 16:03 | P.DS ---
Admission Date: 12/25/24 Discharge Date: 12/27/24 Disposition: ROUTINE DISCHARGE Discharge Condition: GOOD Reason for Admission: SOB Brief History of Present Illness: 74 year-old female patient with medical history significant for type 2 diabetes, hypertension, hyperlipidemia, ESRD on dialysis Who was brought to ER with shortness of breath which has been progressively getting worse overnight and was brought to ER. Denies any chest pain. No fever or chills. No nausea vomiting or diarrhea. Patient was assessed in the ER and is admitted for fluid overload. Patient had dialysis yesterday. Hospital Course: Assessment: ESRD on HD TTS with volume overload Chronic systolic congestive heart failure Cough, leukocytosis-concern for developing pneumonia/bronchitis COPD with exacerbation Atrial fibrillation on chronic anticoagulation Diabetes mellitus type 2insulin-dependent Hypertension Hyperlipidemia Patient was admitted to the hospital for dyspnea, initially she did require BiPAP. It was suspected that she had volume overload related to her heart failure. She was seen by cardiology and nephrology, underwent inpatient HD. She did have a persistent cough and her white blood cell count became elevated, she was started on empiric antibiotics and had improvement in her symptoms. Echocardiogram was also performed showed normal EF, normal wall motion and grade 2 diastolic dysfunction. Cardiology discussed the possibility of starting Entresto but her blood pressures were borderline low throughout parts of her hospitalization, this was discussed with nephrology and for that reason we will not start Entresto at this time. 12/26 patient did have some expiratory wheezing as well, she has a history of COPD. Trial of low-dose prednisone which seemed to have some breathing, no wheezing noted today. Patient is stable for discharge and outpatient follow-up with cardiology, nephrology and her PCP. Prescriptions for cefpodoxime, doxycycline, prednisone sent to pharmacy [facility] in [place]. Other home medication should be continued as previously taken Follow-up with your primary care doctor, cardiology and nephrology in the next 1 to 2 weeks Vital Signs/Physical Exam: Temp Pulse Resp BP Pulse Ox 97.9 F 60 18 128/58 L 98 12/27/24 12:09 12/27/24 12:09 12/27/24 12:09 12/27/24 12:12/27/24 12:09 General: Alert, In no apparent distress, Oriented x3 HEENT: Atraumatic Neck: Supple, JVD not distended Respiratory: Clear to auscultation bilaterally, Normal air movement Cardiovascular: Regular rate/rhythm, Normal S1 S2 Gastrointestinal: Non-distended Musculoskeletal: No tenderness Integumentary: No rashes Neurological: Normal speech, Normal affect Laboratory Data at Discharge: WBC 7.70 thou/uL (4.3-10.9) 12/27/24 05:18 Hgb 8.4 g/dL (12.0-15.0) L D 12/27/24 05:18 Hct 25.6 % (36.0-45.0) L 12/27/24 05:18 Plt Count 211 thou/uL (152-406) 12/27/24 05:18 PT 18.3 SECONDS (10-13.0) H 12/25/24 01:20 INR 1.64 12/25/24 01:20 APTT 33.4 SECONDS (27.2-37.4) 12/25/24 01:20 Sodium 136 mEq/L (136-145) 12/27/24 05:18 Potassium 4.6 mEq/L (3.5-5.1) 12/27/24 05:18 BUN 33 mg/dL (7-18) H 12/27/24 05:18 Creatinine 4.89 mg/dL (0.55-1.02) H 12/27/24 05:18 Glucose 147 mg/dL (74-106) H 12/27/24 05:18 Magnesium 2.0 mg/dL (1.6-2.4) 12/25/24 01:20 Total Bilirubin 0.8 mg/dL (0.2-1.0) 12/26/24 04:57 AST < 10 U/L (15-37) L 12/26/24 04:57 ALT < 14 U/L (13-56) 12/26/24 04:57 Alkaline Phosphatase 126 U/L (45-117) H 12/26/24 04:57 Lipase 62 U/L (13-75) 12/25/24 01:20 Home Medications: Allopurinol 100 mg PO DAILY 06/23/20 Atorvastatin Calcium 20 mg PO BEDTIME 06/23/20 Cholecalciferol (Vitamin D3) [Vitamin D3] 3,000 unit PO DAILY 06/23/20 Loratadine [Claritin*] 10 mg PO DAILY 06/23/20 Apixaban [Eliquis] 5 mg PO BID 01/01/23 Digoxin [Lanoxin*] 0.125 mg PO DAILY 01/01/23 Insulin NPH Human Isophane [Novolin N] 52 unit SQ DAILY WITH BREAKFAST 01/13/23 Liraglutide [Victoza 2-Meir] 1.8 units IN DAILY 01/13/23 Insulin NPH Human Isophane [Humulin N] 40 units SQ BEDTIME 12/25/24 Pantoprazole Sodium 40 mg PO DAILY 12/25/24 Vit C/E/Zn/Coppr/Lutein/Zeaxan [Preservision Areds 2 Softgel] 1 each PO BID 12/25/24 carvediloL [Coreg*] 6.25 mg PO BID 12/25/24 Benzonatate [Tessalon Perle*] 100 mg PO TID PRN #25 cap 12/27/24 Cefpodoxime Proxetil 100 mg PO DAILY #5 tab 12/27/24 Doxycycline Hyclate 100 mg PO BID #10 tab 12/27/24 predniSONE [Deltasone*] 10 mg PO BID 5 Days #10 tab 12/27/24 New Medications: Cefpodoxime Proxetil 100 mg PO DAILY #5 tab predniSONE [Deltasone*] 10 mg PO BID 5 Days #10 tab Doxycycline Hyclate 100 mg PO BID #10 tab Benzonatate [Tessalon Perle*] 100 mg PO TID PRN #25 cap PRN Reason: Cough Physician Discharge Instructions: Patient was admitted to the hospital for dyspnea, initially she did require BiPAP. It was suspected that she had volume overload related to her heart failure. She was seen by cardiology and nephrology, underwent inpatient HD. She did have a persistent cough and her white blood cell count became elevated, she was started on empiric antibiotics and had improvement in her symptoms. Echocardiogram was also performed showed normal EF, normal wall motion and grade 2 diastolic dysfunction. Cardiology discussed the possibility of starting Entresto but her blood pressure s were borderline low throughout parts of her hospitalization, this was discussed with nephrology and for that reason we will not start Entresto at this time. 12/26 patient did have some expiratory wheezing as well, she has a history of COPD. Trial of low-dose prednisone which seemed to have some breathing, no wheezing noted today. Patient is stable for discharge and outpatient follow-up with cardiology, nephrology and her PCP. Prescriptions for cefpodoxime, doxycycline, prednisone sent to [facility] in [place]. Other home medication should be continued as previously taken Follow-up with your primary care doctor, cardiology and nephrology in the next 1 to 2 weeks Diet: Renal Activity: Ad jose Followup: Gabriela Mays MD [ACTIVE - CAN ADMIT] - 1 Week Jerome Fuentes MD [ACTIVE - CAN ADMIT] - 1-2 Weeks Krishna Thomas MD [Primary Care Provider] - 1 Week Time spent managing pt's care (in minutes): 50
[2024-12-27 17:29] VITALS: BP 151/57; TEMP 98.2
--- NOTE | 2024-12-28 12:50 | EKG ---
Test Date: 2024-12-25 Test Time: 00:57:45 Air Control/Anti Air Warfare Officer: ARCHIE MEASUREMENT RESULTS: Intervals: Rate: 70 [place]: QRSD: 160 QT: 428 QTc: 462 [place]: P: WA: QRS: -75 T: 101 INTERPRETIVE STATEMENTS: Ventricular-paced rhythm Abnormal ECG Compared to ECG 12/11/2024 00:16:30 No significant changes Electronically Signed On 12-28-24 12:41:20 CDT by Jerome Fuentes
== END 2024-12-27 18:44 | disposition home or self-care (01) | DRG 280 ==
LOC: ER 00:46 → ERHOLD 02:38 → 2ND 04:15
PROVIDERS: ADMIT Family Medicine; ATTEND Hospitalist
PROC: 5A1D70Z Performance of Urinary Filtration, Intermittent, Less than 6 Hours Per Day (ICD-10-PCS; principal; 2024-12-25)
DX: I13.2 Hypertensive heart and chronic kidney disease with heart failure and with stage 5 chronic kidney disease, or end stage renal disease (principal); I50.23 Acute on chronic systolic (congestive) heart failure; I21.A1 Myocardial infarction type 2; N18.6 End stage renal disease; J96.21 Acute and chronic respiratory failure with hypoxia; J18.9 Pneumonia, unspecified organism; Z68.43 Body mass index [BMI] 50.0-59.9, adult; I48.20 Chronic atrial fibrillation, unspecified; J44.1 Chronic obstructive pulmonary disease with (acute) exacerbation; J44.0 Chronic obstructive pulmonary disease with (acute) lower respiratory infection; E66.01 Morbid (severe) obesity due to excess calories; E11.22 Type 2 diabetes mellitus with diabetic chronic kidney disease; D63.1 Anemia in chronic kidney disease; E78.5 Hyperlipidemia, unspecified; Z99.2 Dependence on renal dialysis; Z88.1 Allergy status to other antibiotic agents; Z88.8 Allergy status to other drugs, medicaments and biological substances; Z79.4 Long term (current) use of insulin; Z79.01 Long term (current) use of anticoagulants; Z79.899 Other long term (current) drug therapy; Z91.158 Patient's noncompliance with renal dialysis for other reason
CPT/HCPCS: 36415; 71045; 80048; 80053; 80076; 82550; 82947; 83605; 83690; 83735; 83880; 84484; 85025; 85027; 85379; 85610; 85730; 86706; 87040; 87340; 90935; 93005; 93306; 94760; 96374; 96375; 99285; J0696; J1815; J1938; J2270; J2405; J7050; J7512; J7613; P9047; Q5105